=== PATIENT | female | born 1965 | race Caucasian/White ===

== ENCOUNTER 2018-12-27 15:36 | Emergency (ER) | payer MEDICAID, SELFPAY ==
[2018-12-27 15:36] VITALS: BP 120/78; PULSE 97; RESP 16; TEMP 37.1; O2SAT 99; BMI 21.0
--- NOTE | 2018-12-27 15:58 | EKG12_ITS ---
Test Reason : FLU LIKE SYMPTOMS Blood Pressure : / mmHG Vent. Rate : 080 BPM Atrial Rate : 080 BPM P-R Int : 146 ms QRS Dur : 086 ms QT Int : 370 ms P-R-T Axes : 077 073 072 degrees QTc Int : 426 ms Normal sinus rhythm Normal ECG Confirmed by JORJE KING, LEONIDES ([id number]), photographic editor MIKE BAJWA ([id number]) on 12/31/2018 1:32:12 PM Referred By: GRAY Confirmed By:LEONIDES RECINOS MD
--- NOTE | 2018-12-27 16:07 | ED.DCSUM_ITS ---
- ER Visit Summary Date of Service: 12/27/18 Chief Complaint: Cough History of Present Illness: The patient is a 53 F patient with cough x several weeks. Patient states that she went to urgent care 1.5 weeks ago. She was given Mucinex, prednisone, and an inhaler. She states she did not improve. Yesterday she was out in the cold and she feels her symptoms worsened. She has had shortness of breath, dry cough. She denies fever. She states she has chest pain with coughing and also constant chest pressure which has been ongoing for several days. Denies other complaints. Physical Examination: Vitals are stable. Patient is afebrile. Alert no acute distress. Pulse ox 99% on room air. HEENT exam is unremarkable. Neck is supple. Lungs are mild expiratory wheezing bilaterally. Heart is regular rate and rhythm. Abdomen is soft nontender nondistended. Extremities are unremarkable. Skin is warm and dry. No focal neurologic deficit. Remainder of exam is unremarkable. Emergency Department Course and Treatment: EKG is sinus rate of 80 with no acute ischemic changes. Chest x-ray shows no acute process. CBC, chemistries unremarkable. Troponin is negative. D-dimer negative. Patient was given albuterol, Atrovent aerosols. Patient eloped from the ED prior to completion of her evaluation. Disposition: Elopement Impression: URI, chest pain, elopement This note was generated with [employer] dictation software. It may contain incorrect words, spelling, and punctuation that were not noted in review of the chart prior to signing ED Disposition - Plan for ED Patient: Referrals: Ellis Crandall MD [Primary Care Provider] -
[2018-12-27 16:17] VITALS: PULSE 78; RESP 17
[2018-12-27] MEDS: Ipratropium/Albuterol Sulfate 3 ML AMPUL.NEB INHALATION (16:17)
--- NOTE | 2018-12-27 16:17 | RAD_ITS ---
STUDY: X-RAY CHEST REASON FOR EXAM: Female, 53 years old. Cold symptoms TECHNIQUE: Single AP portable view of the chest. COMPARISON: Prior study of 08/23/2016 FINDINGS: ekg monitor leads are present. The lungs are clear and expanded. There is no demonstrated pleural abnormality. Normal size heart. Normal mediastinum and kirtsen. Normal visualized pulmonary arteries. Normal visualized aortic arch and descending thoracic aorta. Normal visualized thoracic spine. Normal visualized ribs, clavicles, and shoulders. There is no demonstrated abnormality of the visualized soft tissue structures of the upper abdomen. RAD/Chest 1 View (Portable) IMPRESSION: Normal x-ray examination of the chest. Electronically Signed: Luis Castillo MD at 17:41 EST , Service support ,
[2018-12-27 16:29] LABS: Absolute Lymphocyte Count 2.32 X10^3/ul (0.83-4.51); Absolute Neutrophil Count 5.7 X10^3/uL (2.0-7.7); Basophil# 0.04 X10^3/uL; Basophil% 0.4 % (0-1); Eosinophil# 0.14 X10^3/uL; Eosinophils% 1.5 % (0-5); Hematocrit 42.8 % (37-47); Hemoglobin 14.5 g/dl (12.0-15.0); Lymphocyte # 2.32 X10^3/ul (4.0); Lymphocyte % 25.6 % (19-41); Mean Corp Hgb Conc 33.9 g/gl (32-36); Mean Corpuscular Hgb 30.3 pg (27.0-32.0); Mean Corpuscular Volume 89.4 fL (81-99); Monocyte# 0.88 X10^3/uL; Monocyte% 9.7 % (0-10); Neutrophil # 5.68 X10^3/uL (2.7-7.7); Neutrophil % 62.7 % (47-70); Platelet Count 313 K/mm3 (150-450); RBC Distribution Width CV 14.3 % (11.6-14.6); RBC Distribution Width SD 46.5 fl (35.1-43.9); Red Blood Count 4.79 M/mm3 (4.2-5.4); White Blood Count 9.1 K/mm3 (4.4-11.0)
[2018-12-27 16:32] LABS: POSITIVE COUNT NO; POSITIVE DIFFERENTIAL NO; POSITIVE MORPHOLOGY NO
[2018-12-27 16:41] LABS: D-Dimer Quantitative (DVT/PE) < 0.27 FEU/ug/m (0.27-0.49)
[2018-12-27 16:53] LABS: Anion Gap 6 (5-15); BUN 12 mg/dL (7-18); BUN/Creat Ratio 16.7 RATIO (10-20); Calcium,Total 9.4 mg/dL (8.5-10.1); Chloride 105 mmol/L (98-107); Creatinine, Serum 0.72 mg/dL (0.55-1.02); EST Glomerular Filtration Rate 91 mL/min (>60); Est Glom Filt Rate - Afr Amer 110 mL/min (>60); Estimated Creatinine Clearance 72.29 ml/min; Glucose 72 mg/dL (74-106); Potassium 4.3 mmol/L (3.5-5.1); Sodium Level 137 mmol/L (136-145)
--- NOTE | 2018-12-27 17:51 | ED.RN ---
PT IS VERY UPSET BECAUSE SHE DIDN'T WANT A IV, EVERYTHING IS TAKING TOO LONG AND SHE WOULD RATHER GO HOME AND . PT STATED SHE WANTS HER IV OUT AND IS GOING TO LEAVE. PT HAS BEEN DISGRUNTLED SINCE ARRIVAL AND FEELS THAT THE URGENT CARE DIDN'T DO ENOUGH WHEN SHE WENT THERE A WEEK AGO.
--- NOTE | 2018-12-27 17:54 | ED.RN ---
PT LEFT PRIOR TO PHYSICIAN GOING IN TO TALK TO HER AND ALSO PRIOR TO SIGNING AMA PAPERS. RN TOOK IV OUT PRIOR TO HER LEAVING.
== END 2018-12-27 18:17 | disposition left against medical advice (07) ==
LOC: ED 16:34
PROVIDERS: Emergency Provider Emergency Medicine; Family Provider Family Medicine; PCP Family Medicine
DX: J06.9 Acute upper respiratory infection, unspecified (principal); R07.9 Chest pain, unspecified; Z72.0 Tobacco use
CPT/HCPCS: 71045; 80048; 84484; 85025; 85379; 93005; 94640; 99285; J7030

== ENCOUNTER 2019-02-18 20:27 | Emergency (ER) | payer MEDICAID, SELFPAY ==
[2019-02-18 20:28] VITALS: BP 148/96; PULSE 86; RESP 16; TEMP 37; O2SAT 100; BMI 21.9
[2019-02-18 20:50] LABS: Bacteria 0 SEEN /hpf (None Seen); Mucous, Urine 0 SEEN /hpf (<or=2+); Red Blood Cells-Urine 0 SEEN /hpf (0-5); Squamous Epithelial Cells - UA 0 SEEN /hpf (5-10); White Blood Cells 0 SEEN /hpf (0-5)
[2019-02-18 20:57] LABS: Absolute Lymphocyte Count 3.09 X10^3/ul (0.83-4.51); Absolute Neutrophil Count 3.6 X10^3/uL (2.0-7.7); Basophil# 0.06 X10^3/uL; Basophil% 0.8 % (0-1); Eosinophil# 0.24 X10^3/uL; Eosinophils% 3.2 % (0-5); Hematocrit 41.6 % (37-47); Hemoglobin 13.9 g/dl (12.0-15.0); Lymphocyte # 3.09 X10^3/ul (4.0); Lymphocyte % 40.8 % (19-41); Mean Corp Hgb Conc 33.4 g/gl (32-36); Mean Corpuscular Volume 89.7 fL (81-99); Mean Platelet Vol. 10.4 fl (6.2-12.0); Monocyte# 0.54 X10^3/uL; Monocyte% 7.1 % (0-10); Neutrophil # 3.63 X10^3/uL (2.7-7.7); POSITIVE COUNT NO; POSITIVE DIFFERENTIAL NO; POSITIVE MORPHOLOGY NO; Platelet Count 262 K/mm3 (150-450); RBC Distribution Width CV 14.1 % (11.6-14.6); RBC Distribution Width SD 45.8 fl (35.1-43.9); Red Blood Count 4.64 M/mm3 (4.2-5.4); White Blood Count 7.6 K/mm3 (4.4-11.0)
[2019-02-18 20:59] LABS: Color, Urine Yellow (Yellow); Glucose, Dipstick Normal (Normal); Ketone-Dipstick Negative (Negative); Leukocyte Esterase-Dipstick Negative /ul (Negative); Nitrite-Dipstick Negative (Negative); Occult Blood-Urine 10 /ul (Negative); Protein-Dipstick Negative (Negative); Specific Gravity, Urine 1.005 (1.002-1.030); Urine Bilirubin Dipstick Negative (Negative); Urine Clarity Clear (Clear); Urine Urobilinogen Normal (Normal)
[2019-02-18 21:03] LABS: Anion Gap 9 (5-15); BUN 10 mg/dL (7-18); BUN/Creat Ratio 12.3 RATIO (10-20); Calcium,Total 9.4 mg/dL (8.5-10.1); Chloride 104 mmol/L (98-107); Creatinine, Serum 0.81 mg/dL (0.55-1.02); EST Glomerular Filtration Rate 79 mL/min (>60); Est Glom Filt Rate - Afr Amer 95 mL/min (>60); Estimated Creatinine Clearance 58.36 ml/min; Glucose 76 mg/dL (74-106); Potassium 4.2 mmol/L (3.5-5.1); Sodium Level 139 mmol/L (136-145)
[2019-02-18 21:30] LABS: Pregnancy, Serum, hCG Quali. NEGATIVE Negative (0-9 Nonpreg)
[2019-02-18 22:29] LABS: AST(SGOT) 16 U/L (15-37); Alanine Aminotransfer ALT/SGPT 18 U/L (13-56); Alkaline Phosphatase 63 U/L (45-117); Bilirubin, Direct 0.08 mg/dL (0.00-0.30); Globulin 3.4 g/dL (2.2-4.2); Lipase 124 U/L (73-393); Protein, Total 7.4 g/dL (6.4-8.2)
--- NOTE | 2019-02-18 23:06 | ED.DCSUM_ITS ---
- ER Visit Summary Date of Service: 02/18/19 Chief Complaint: Abdominal pain History of Present Illness: The patient is a 53 F who presents with abdominal pain that has been getting worse for the past couple weeks. Patient states the pain is over the epigastric area. Patient describes the pain as cramping. Patient was recently prescribed Bentyl however she states this made her pain and cramping worse. Patient states her primary care physician told her to stop taking that. Patient is on omeprazole. Patient admits to nausea but denies any vomiting. Patient states her pain is worse after eating. Patient states she has been having some mucousy stools but denies any watery diarrhea. Patient denies any melena or hematochezia. She denies any urinary complaints. Physical Examination: Vital signs are stable. Patient is afebrile. Patient is in no acute distress. Oral mucosa is pink and moist. Neck is supple. Trachea is midline. There is no JVD noted. Heart was regular rate and rhythm. Lungs are clear and equal bilateral. Abdomen is soft. Bowel sounds are normal. There is epigastric tenderness. There is no rebound or guarding noted. Skin is warm dry. Cranial nerves II through XII are intact. There are no focal motor or sensory deficits noted. The remaining physical exam is within normal limits. Test Results: CBC, comprehensive metabolic profile, and lipase were obtained and were normal. Serum hCG was negative. Urinalysis was obtained and does not show any evidence of urinary tract infection. Emergency Department Course and Treatment: Patient felt better on reevaluation. Patient was given a prescription for Carafate to take in addition to the omeprazole. Patient was instructed to follow-up with her primary care physician and surgeon as scheduled. Patient understood and was agreeable with the plan. All questions were answered. Disposition: Discharge home Impression: Epigastric abdominal pain This note was generated with [employer] dictation software. It may contain incorrect words, spelling, and punctuation that were not noted in review of the chart prior to signing ED Disposition - Plan for ED Patient: Disposition: Home or Assisted Living Diagnosis: Epigastric abdominal pain Instructions: ED Abdominal Pain Unkn Cause Prescriptions: Sucralfate [Carafate] 1 gm PO 4X/DAY #20 tab Referrals: Ellis Crandall MD [Primary Care Provider] - 5-7 Days
[2019-02-18 23:16] VITALS: BP 136/78; PULSE 89; RESP 16; O2SAT 100
== END 2019-02-18 23:17 | disposition home or self-care (01) ==
PROVIDERS: Emergency Provider Emergency Medicine; Family Provider Family Medicine; PCP Family Medicine
DX: R10.13 Epigastric pain (principal); M54.9 Dorsalgia, unspecified; R51 Headache; R11.0 Nausea; F17.210 Nicotine dependence, cigarettes, uncomplicated; F60.3 Borderline personality disorder
CPT/HCPCS: 80048; 80076; 81001; 83690; 84703; 85025; 99283; A4216

== ENCOUNTER 2019-03-09 11:06 | Day surgery (SDC) | payer MEDICAID, SELFPAY ==
--- NOTE | 2019-03-08 12:27 | HP.PCM_ITS ---
History and Physical Date of Admission: 03/09/19 Erica Pedroza is a 53 year old female who is a consultation requested byNixon Delcid PA, for an opinion regarding abdominal pain and altered bowel habits. My final recommendations will be communicated back to the requesting providern by way of shared Medical record. The patient has not been seen previously. The patient denies a family history of colon cancer.. ? The patient was seen by Farhana on 02/10/19, leading to this consultation. That note has been reviewed and part as follows: Abdominal Pain: Patient indicated that she has been having stomach issues?and?has noticed mucus in the stool.?? Blood work was ordered, but not done. ? ? The patient was seen in 12/16/18 with diarrhea. That note has been reviewed. Stool studies were ordered, but not done. She tells me that was just the flu. ?? Subjective The patient presents today stating every time I eat something my stomach will hurt. Even with coffee, but water won't hurt. It starts about an hour after eating. She rubs her upper abdomen. ? Taking omeprazole at least once a day, sometimes twice. ? She tells me since the flu it will seem like I have to go and I'll have a lot of gas and mucus. Stool is soft. ? She tells me that she can't tolerate any milk/dairy products or eggs. ? The patient tells me that, as a child, her parents would give her and her siblings laxatives every Saturday. As an adult, her bowels moved about once a month before the flu. States back then, before I'd go to the bathroom I would get nauseated and feel like I'm going to pass out. Nothing like that now. She denies seeing any blood or black stool. ? ?? PAST?MEDICAL?HISTORY ? Anxiety 05/04/2014 ? Carpal tunnel syndrome, left 01/06/2013 ? Carpal tunnel syndrome, right 01/06/2013 ? Depression 05/04/2014 ? Mood disorder (HCC) 05/04/2014 ? NEGATIVE MEDICAL HISTORY ? ? Panic attacks 03/24/2014 ? ? PAST?SURGICAL?HISTORY ? DELIVERY ONLY ? 1984 ? , low transverse ? DELIVERY ONLY ? 1986 ? , low transverse ? DELIVERY ONLY ? 1987 ? , low transverse ? FECAL OCCULT BLOOD TEST ? 04/15/2017 ? negative ? ? FAMILY?HISTORY ? Diabetes Mother ? ? COPD Mother ? ? COPD Father ? ? Heart Father ? ? Hypertension Father ? ? Coronary Artery Disease Father ? ? 50's ? Diabetes Sister ? ? COPD Sister ? ? Hypertension Sister ? ? CURRENT?MEDICATIONS ?fluticasone (FLONASE) 50 mcg/actuation nasal spray Use 2 Sprays in each nostril once daily. Rinse mouth after use. Disp: 1 Bottle Rfl: 1 Omeprazole 40 mg capsule Take 1 capsule by mouth twice daily. Disp: 60 capsule Rfl: 5 ?? ? SOCIAL HISTORY: Patient is . She smokes 1/2 ppd and reports her alcohol or cannabis use as never. ?? Review of Systems Constitutional: Positive for appetite change (due to pain associated with eating) and chills. HENT: Positive for dental problem. Negative for mouth sores and trouble swallowi ng. Eyes: Negative for visual disturbance. Respiratory: Negative for cough, shortness of breath and wheezing. Cardiovascular: Negative for chest pain, palpitations and leg swelling. Gastrointestinal: Positive for abdominal distention, abdominal pain (epigastric region), diarrhea and nausea. Genitourinary: Negative for difficulty urinating, vaginal bleeding and vaginal discharge. Musculoskeletal: Positive for arthralgias (hand joint pain) and back pain. Neurological: Negative for tremors, seizures, syncope and headaches. Hematological: Negative for adenopathy. Does not bruise/bleed easily. Psychiatric/Behavioral: The patient is nervous/anxious. Also depression. Question of borderline personality disorder. Objective Blood pressure 138/73, pulse 90, height 152.4 cm (5'), weight 50.8 kg (112 lb). ?Physical Exam Constitutional: She is oriented to person, place, and time. She appears well- developed. No distress. HENT: Head: Normocephalic and atraumatic. Mouth/Throat: Oropharynx is clear and moist. Eyes: Pupils are equal, round, and reactive to light. Conjunctivae and EOM are normal. No scleral icterus. Neck: Neck supple. No tracheal deviation present. No thyromegaly present. Cardiovascular: Normal rate, regular rhythm and normal heart sounds. Pulmonary/Chest: Effort normal and breath sounds normal. No respiratory distress. She has no wheezes. Abdominal: Soft. Bowel sounds are normal. She exhibits no distension and no mass. There is tenderness (slight TTP epigastric region). There is no rebound and no guarding. Musculoskeletal: She exhibits no edema or deformity. Lymphadenopathy: She has no cervical adenopathy. Neurological: She is alert and oriented to person, place, and time. No cranial nerve deficit or sensory deficit. Skin: Skin is warm and dry. No rash noted. She is not diaphoretic. No erythema. Psychiatric: She has a normal mood and affect. Her behavior is normal. Judgment and thought content normal. ? ? ? Assessment and Plan Epigastric pain 2)altered bowel habits ? She will have the blood work done tomorrow. She will continue omeprazole. Prescribed dicyclomine. ? The patient will be scheduled for an upper endoscopy and colonoscopy. Preparation for the procedures, using Miralax and Dulcolax as the laxative, have been explained in detail. The risks, benefits, anticipated outcomes and possible complications were mentioned. I explained the procedure in understandable terms and the patient was given printed material concerning the planned procedure. The patient had the opportunity to ask questions concerning the planned procedure. The patient freely consents to the planned procedure. ? The patient is encouraged to call with any questions or concerns, or should there be any change in health status between now and the scheduled procedure. ? I have personally interviewed and examined this patient. I have read the information that the MA documented in this encounter. I spent 30 minutes in the visit, with more than 50% of the total [id number] time of the visit in counseling / coordination of care. ? Matilde Pang RN FISHING [employer] WINDING MACHINE OPERATOR.[employer] ? ?
--- NOTE | 2019-03-09 | COLBX_PTH ---
PATIENT: SJ MOHAN LOC: EN U#:[id number] AGE/SX: 53/F ROOM: RE03/09/[address]: Dr. Citlali Archuleta MD : 1965 BED: DIS: 03/09/2019 SPEC #: [id number] RECD: 03/09/19 15:39 STATUS: CARSON RE #: [id number] [place]: 03/09/19 00:[address]: Citlali Archuleta DEPT: SURGICAL PATHOLOGY RECD BY: Miles Cleary ENTERED: 03/10/19 14:00 SP TYPE: COLON BX OTHR DR: Dr. Ellis Crandall MD Tissues: A - Duodenum, NOS B - Gastric mucous membrane C - Gastric mucous membrane D - COLON BIOPSY Procedures: Special Stain Group II Surgery Specimen Level IV Alcian Blue/PAS (control) HEADER OPERATION: Colonoscopy, EGD ([facility]) PRE-OP DIAGNOSIS: Abdominal pain; altered bowel habits TISSUE SUBMITTED: A - Second portion of duodenum biopsy, B - Antral biopsy for H. pylori and pathology, C - GE junction biopsy, D - Random colon biopsies MICROSCOPIC DIAGNOSIS A. Second portion of duodenum, biopsy: No pathologic diagnosis. B. Gastric antrum, biopsy: Benign fragments of superficial gastric mucosa. No evidence of inflammation. See comment. C. Gastroesophageal junction, biopsy: Focal changes of reflux. Mild chronic inflammation. No evidence of intestinal metaplasia. No evidence of dysplasia. See comment. D. Colon, random biopsy: Mild melanosis coli. AM:isaias 03/11/19 COMMENT B. The results of immunohistochemistry for Helicobacter pylori will be reported separately ([id number]). C. Alcian blue/PAS stain with matched control supports the above diagnosis. MICROSCOPIC DESCRIPTION Slides are reviewed. GROSS DESCRIPTION A - Received in fixative is one container labeled with the patient's name and designated second portion of duodenum. The specimen consists of one irregular fragment of light rm soft tissue that measures 0.3 x 0.3 x 0.1 cm. The specimen is totally submitted in one cassette. B - Received in fixative is one container labeled with the patient's name and designated antral biopsy. The specimen consists of multiple irregular fragments of light rm soft tissue that in aggregate measure 0.6 x 0.3 x 0.1 cm. The specimen is totally submitted in one cassette. C - Received in fixative is one container labeled with the patient's name and designated GE junction biopsy. The specimen consists of two irregular fragments of light rm soft tissue that in aggregate measure 0.6 x 0.3 x 0.1 cm. The specimen is totally submitted in one cassette. D - Received in fixative is one container labeled with the patient's name and designated random colon biopsy. The specimen consists of multiple irregular fragments of light rm soft tissue that in aggregate measure 2 x 0.3 x 0.1 cm. The specimen is totally submitted in one cassette. / SJ:rg 03/10/19 TC:5 CPT: 27605 x4, 68041
[2019-03-09 11:21] VITALS: BP 146/90; PULSE 71; RESP 16; TEMP 37; O2SAT 100; BMI 20.7
--- NOTE | 2019-03-09 12:00 | IMM_PTH ---
PATIENT: SJ MOHAN LOC: [facility] U#:[id number] AGE/SX: 53/F ROOM: RE03/09/[address]: Dr. Citlali Archuleta MD : 1965 BED: DIS: 03/09/2019 SPEC #: [id number] RECD: 03/10/19 15:07 STATUS: CARSON REQ #: [id number] [place]: 03/09/19 12:[address]: Citlali Archuleta DEPT: IMMUNOHISTOCHEMISTRY RECD BY: Joanna Alvarez ENTERED: 03/10/19 15:08 SP TYPE: IMMUNO OTHR DR: Dr. Ellis Crandall MD Tissues: B - Stomach, NOS Procedures: H Pylori (initial) PHYSICIAN & INSTITUTION [place] [id number] SPECIMEN INFORMATION: Tissue Source: B - Antral biopsy Clinical Info: Abdominal pain, altered bowel habits Specimen Number: [id number] CPT code: 46880 METHODOLOGY: Deparaffinized sections of prefer/formalin-fixed tissue or PAP/DQ stained slides are incubated with monoclonal/polyclonal antibodies/oligonucleotide probes. Localization is made via biotin free immunoperoxidase method. Appropriate controls are performed and reacted as expected. Results on target cell population are indicated in the following table: RESULTS: ANTIBODY / CLONE RESULT Block B H Pylori (polyclonal) negative These tests were developed and their performance characteristics determined by [facility]. They may not have been cleared or approved by the U.S. Food and Drug Administration. The FDA has determined that such clearance or approval is not necessary. INTERPRETATION: B. Antral biopsy: Negative for Helicobacter pylori organisms. AM:isaias 03/11/19
--- NOTE | 2019-03-09 13:14 | OP.ENDO_ITS ---
03/09/2019 Ellis Crandall MD Re : Upper GI endoscopy procedure for Erica Pedroza Dear Dr. Crandall This procedure was performed on Saturday, March 09, 2019. My impressions and recommendations are as follows: Impressions : - No specimens collected. Recommendations : - Discharge patient to home (ambulatory). - Resume previous diet. - Continue present medications. - Return to nurse practitioner in 1-2 week. My findings are described in the full procedure note, which is enclosed. If I can be of further assistance, please feel free to contact me at Doctor phone number(s): , Work: . Sincerely, MD Citlali Fuchs MD 03/09/2019 1:14:15 PM This report has been signed electronically.
--- NOTE | 2019-03-09 13:17 | OP.ENDO_ITS ---
03/09/2019 Ellis Crandall MD Re : Colonoscopy procedure for Erica Pedroza Dear Dr. Crandall This procedure was performed on Saturday, March 09, 2019. My impressions and recommendations are as follows: Impressions : - Non-bleeding internal hemorrhoids. - Biopsies were taken with a cold forceps from the entire colon for evaluation of microscopic colitis. Recommendations : - Discharge patient to home (ambulatory). - Resume previous diet. - Continue present medications. - Return to nurse practitioner in 1 - 2week. - Repeat colonoscopy in 10 years for screening purposes. My findings are described in the full procedure note, which is enclosed. If I can be of further assistance, please feel free to contact me at Doctor phone number(s): , Work: . Sincerely, MD Citlali Fuchs MD 03/09/2019 1:16:56 PM This report has been signed electronically.
[2019-03-09 13:19] VITALS: BP 144/81; BP 146/90; PULSE 67; RESP 16; TEMP 35.8; O2SAT 100
[2019-03-09 13:24] VITALS: BP 146/90; BP 147/80; PULSE 65; RESP 16; O2SAT 100
[2019-03-09 13:29] VITALS: BP 144/89; BP 146/90; PULSE 68; RESP 16; O2SAT 100
[2019-03-09 13:34] VITALS: BP 135/84; BP 146/90; PULSE 63; RESP 16; TEMP 36.1; O2SAT 100
[2019-03-09 13:52] VITALS: BP 146/90
== END 2019-03-09 14:01 | disposition home or self-care (01) ==
LOC: EN 11:06 → AC 11:11
PROVIDERS: Family Provider Family Medicine; PCP Family Medicine; Referring Provider Family Medicine; Visit Provider Surgery
PROC: 0DJD8ZZ Inspection of Lower Intestinal Tract, Via Natural or Artificial Opening Endoscopic (ICD-10-PCS; CPT 45378; principal; 2019-03-09 11:55)
DX: K64.8 Other hemorrhoids (principal); R10.84 Generalized abdominal pain; R19.4 Change in bowel habit; K63.89 Other specified diseases of intestine; F17.210 Nicotine dependence, cigarettes, uncomplicated; I10 Essential (primary) hypertension
CPT/HCPCS: 43239; 45380; 88305; 88313; 88342; J7120; J2405

== ENCOUNTER 2019-05-05 07:59 | Emergency (ER) | payer SELFPAY ==
[2019-05-05 08:00] VITALS: BP 189/110; PULSE 70; RESP 18; TEMP 36.6; O2SAT 100; BMI 22.0
[2019-05-05 08:03] VITALS: TEMP 36.6
--- NOTE | 2019-05-05 08:35 | ED.DCSUM_ITS ---
- ER Visit Summary Date of Service: 05/05/19 Chief Complaint: Dental pain and facial swelling History of Present Illness: The patient is a 53 F who presents for 2 days of right-sided dental and facial pain with facial swelling. Patient states she began noticing facial pain and swelling in the right mandibular region that is moved up to the cheek. She began having severe tooth pain in the maxillary molars this morning. Pain is throbbing. Patient has a history of poor dentition. She denies any fever, chills, sore throat, rhinorrhea, cough, shortness of breath or any other complaints. Patient has not taken anything for the pain. Physical Examination: Vital signs: afebrile, hemodynamically stable, no hypoxia on room air General: well nourished, well developed, in no distress Skin: warm, dry, no rash, no pallor HEENT: normocephalic and atraumatic; PERRL, EOMI, moist mucous membranes, diffuse poor dentition, tenderness to the right maxilary premolar/molar with no focal abscess noted, no gingival erythema or swelling; multiple teeth missing, mild facial swelling along the right jawline and cheek, neck is supple, full active range of motion, mildly tender anterior cervical lymphadenopathy, no submandibular or sublingual swelling Cardiovascular: regular rate and rhythm Respiratory: No increased work of breathing MSK: Moves all extremities, no deformities, normal strength Neuro: Awake and alert, oriented ?4. No facial droop, sensation and motor function intact and symmetric Test Results: Medications Given Discontinued Medications Naproxen (Naprosyn) 500 mg PO X1 ONE Stop: 05/05/19 08:29 Last Admin: 05/05/19 08:52 Dose: 500 mg Penicillin V Potassium (Pen-Vee K , V-Cillin K) 500 mg PO X1 ONE Stop: 05/05/19 08:30 Last Admin: 05/05/19 08:52 Dose: 500 mg Emergency Department Course and Treatment: Patient has no area of fluctuance physical exam that would be concerning for an abscess that would be amenable to drainage. Patient was given naproxen for pain and started on penicillin for concern for dental infection resulting in facial swelling. Patient was given a list of dental clinics and is to follow-up as soon as possible. Discharged home with prescription for naproxen and penicillin. Treatment Plan: [] Disposition: [] Impression: Odontalgia, dental infection with facial swelling This note was generated with [employer] dictation software. It may contain incorrect words, spelling, and punctuation that were not noted in review of the chart prior to signing ED Disposition - Plan for ED Patient: Disposition: Home or Assisted Living Instructions: ED Dental Abscess Facial Cellulitis Prescriptions: RX: Naproxen [Naprosyn] 500 mg PO BID PRN #20 tab RX: Penicillin V Potassium 500 mg PO 4X/DAY #40 tab Referrals: Ellis Crandall MD [Primary Care Provider] - 3-5 Days if not improving Additional Instructions: Please follow-up with a dentist as soon as possible. You have been given a list of dental clinics that you may contact for an appointment. Take the antibiotics as prescribed for the full course even if you feel better before they are completed. Use naproxen as needed for pain. If you have any worsening of your condition or any new concerning symptoms, please return immediately to the emergency department for another evaluation.
[2019-05-05] MEDS: Naproxen 500 MG Tablet PO (08:52)
[2019-05-05] MEDS: Penicillin Vk 250 MG Tablet 500 MG PO (08:52)
== END 2019-05-05 08:57 | disposition home or self-care (01) ==
PROVIDERS: Emergency Provider Emergency Medicine; Family Provider Family Medicine; PCP Family Medicine
DX: K04.7 Periapical abscess without sinus (principal); K08.89 Other specified disorders of teeth and supporting structures; Z72.0 Tobacco use; K00.0 Anodontia
CPT/HCPCS: 99283

== ENCOUNTER 2019-06-20 17:42 | Emergency (ER) | payer SELFPAY ==
[2019-06-20 17:43] VITALS: BP 146/81; PULSE 96; RESP 15; TEMP 36.7; O2SAT 96; BMI 22.2
--- NOTE | 2019-06-20 18:19 | ED.DCSUM_ITS ---
- ER Visit Summary Date of Service: 06/20/19 Chief Complaint: Back pain History of Present Illness: The patient is a 53 F who presents with back pain that has been getting worse over the past 4 days. Patient denies any specific trauma or injury. Patient states the pain is over the low back and radiates to her right buttock and right posterior thigh. Patient states the pain is worse with sitting. Patient denies any paresthesias or weakness. Patient denies any bowel or bladder changes. Patient denies any saddle anesthesia. Physical Examination: Vital signs are stable. Patient is afebrile. Patient is in no acute distress. Musculoskeletal exam reveals tenderness over the right lumbar paraspinal muscles. There is no bony crepitance or step-off. There is also tenderness over the right sciatic notch. Straight leg raises were negative bilaterally. Strength is 5/5 bilaterally in the lower extremities. Deep tendon reflexes were 2/4 bilaterally. There are no sensory deficits noted. Emergency Department Course and Treatment: Patient was given injections of Toradol and Norflex here. Patient was given prescriptions for meloxicam and Flexeril. Patient was instructed to use ice to the area. Patient was instructed to follow-up with her primary care physician in 5 to 7 days. Patient understood and was agreeable with the plan. All questions were answered. Disposition: Discharge home Impression: Sciatica This note was generated with [employer] dictation software. It may contain incorrect words, spelling, and punctuation that were not noted in review of the chart prior to signing ED Disposition - Plan for ED Patient: Disposition: Home or Assisted Living Diagnosis: Sciatica of right side Instructions: BACK PAIN w/ SCIATICA Prescriptions: cycloBENZAPRine HCl [Flexeril] 10 mg PO QHS PRN PRN #10 tab PRN Reason: Muscle Spasm Prescription Printed Meloxicam 15 mg PO DAILY PRN PRN #20 tab PRN Reason: Pain Prescription Printed Referrals: Ellis Crandall MD [Primary Care Provider] - 5-7 Days
--- NOTE | 2019-06-20 18:38 | ED.RN ---
PT REFUSES MEDICATION INJECTIONS, STATES I JUST WANT SOME PRESCRIPTIONS TO FILL. DISCHARGE PAPERWORK GIVEN
== END 2019-06-20 18:39 | disposition home or self-care (01) ==
PROVIDERS: Emergency Provider Emergency Medicine; Family Provider Family Medicine; PCP Family Medicine
DX: M54.30 Sciatica, unspecified side (principal); F17.210 Nicotine dependence, cigarettes, uncomplicated; K21.9 Gastro-esophageal reflux disease without esophagitis
CPT/HCPCS: 96372; 99282

== ENCOUNTER 2019-08-17 23:12 | Emergency (ER) | payer SELFPAY ==
[2019-08-17 23:13] VITALS: BP 165/93; PULSE 79; RESP 18; TEMP 36.6; O2SAT 100; BMI 22.4
--- NOTE | 2019-08-17 23:37 | EKG12_ITS ---
Test Reason : Blood Pressure : / mmHG Vent. Rate : 073 BPM Atrial Rate : 073 BPM P-R Int : 174 ms QRS Dur : 100 ms QT Int : 418 ms P-R-T Axes : 068 073 073 degrees QTc Int : 460 ms Normal sinus rhythm Normal ECG Confirmed by GLEN KING, JOE ([id number]), proposal editor MIKE BAJWA ([id number]) on 08/19/2019 3:13:22 PM Referred By: JIN Confirmed By:JOE CARROLL MD
--- NOTE | 2019-08-18 00:43 | RAD_ITS ---
HISTORY: CPChest PainRAD - Chest EXAM: XR Chest 2 Views COMPARISON: December 27, 2018 FINDINGS: LINES/DEVICES: None. LUNGS: There are chronic interstitial changes. No pneumothorax. No consolidation or effusion. MEDIASTINUM AND CARDIOVASCULAR STRUCTURES: Cardiac silhouette not enlarged. Central airways and mediastinal contour are unremarkable. Athersclerotic plaque within the aortic arch. BONES AND SOFT TISSUES: Thoracic spondylosis. RAD/Chest PA and Lateral IMPRESSION: Chronic interestitial changes. No radiographic evidence of acute cardiopulmonary disease. at 0058 Reported and signed by: Celso Elaine MD Electronically Signed: Celso Elaine MD at 0:57 EDT Tel , Service support ,
--- NOTE | 2019-08-18 00:44 | ED.VIS.GEN ---
History of Present Illness Chief Complaint: Chest Other Narrative: Patient is a 54-year-old female who presents with chest pain. She has had about 2 to 3 days of dull left-sided chest pain which became sharp today. It is worse with inspiration palpation or certain movements. She also complains of upper respiratory symptoms with sinus congestion, rhinorrhea, nonproductive cough. She is not short of breath. She denies any recent travel or surgery, pain or swelling in the legs, history of DVT or pulmonary embolism, any known coagulopathies. She is a smoker. She does have a history of hypertension but does not take the medication as prescribed. She denies any history of heart disease. Past Medical History - Allergies and Home Meds Allergies/Adverse Reactions: Allergies morphine Allergy (Verified 08/17/19 23:15) Hives citalopram [From Celexa] Adverse Reaction (Verified 08/17/19 23:15) Other venlafaxine [From Effexor] Adverse Reaction (Verified 08/17/19 23:15) Other Primary Care Physician: Ellis Crandall MD [Primary Care Provider] - Past Medical History: - - Hypertension, noncompliant with medication Surgical History: noncontributory Smoking Status: Current every day smoker Review of Systems All systems negative except as indicated General: Denies: Fever ENT: Reports: - - Congestion, rhinorrhea Cardiovascular: Reports: Chest pain Respiratory: Reports: Cough. Denies: Dyspnea Gastrointestinal: Denies: Abdominal pain, Nausea, Vomiting, Diarrhea Skin: Denies: Rash Neurological: Denies: Headache Physical Exam Vital Signs/Narrative: Vital Signs Temp Pulse Resp BP Pulse Ox 08/17/19 23:13 97.9 F 79 18 165/93 H 100 Inital Vital Signs reviewed: Yes General: Well nourished Head: Normocephalic Eyes: EOMI ENT: Moist mucous membranes Neck: Supple Cardiovascular: Regular rate, Regular rhythm Respiratory: No distress, CTA bilaterally, Chest tenderness - Lower chest wall tenderness no rash Abdomen: Soft Skin: Normal color Neurological: Alert Psychological: Normal affect Diagnostic/Tx/Re-eval - Medical Decision Making EKG shows normal sinus rhythm at a rate of 73 with no acute ischemic changes. Two-view chest x-ray on my review shows no acute process no pneumothorax or focal infiltrate. Her presentation is most consistent with chest wall strain related to her cough. It is easily reproducible. She was given naproxen here as well as a prescription for the same and was advised on supportive care. She understands to return for new or worsening symptoms and was discharged home. ED Disposition - Plan for ED Patient: Disposition: Home or Assisted Living Diagnosis: Chest wall pain Instructions: Chest Wall Strain Prescriptions: Naproxen [Naprosyn] 500 mg PO BID #20 tab Prescription Printed Referrals: Ellis Crandall MD [Primary Care Provider] -
[2019-08-18] MEDS: Naproxen 500 MG Tablet PO (01:00)
[2019-08-18 01:03] VITALS: BP 153/98; PULSE 65; RESP 18; O2SAT 98
== END 2019-08-18 01:04 | disposition home or self-care (01) ==
PROVIDERS: Emergency Provider Emergency Medicine; Family Provider Family Medicine; PCP Family Medicine
DX: R07.89 Other chest pain (principal); R05 Cough; I10 Essential (primary) hypertension; F17.200 Nicotine dependence, unspecified, uncomplicated; Z91.14 Patient's other noncompliance with medication regimen; Z88.5 Allergy status to narcotic agent
CPT/HCPCS: 71046; 93005; 99283

== ENCOUNTER 2020-01-10 14:49 | Emergency (ER) | payer SELFPAY ==
[2020-01-10 14:49] VITALS: BP 169/91; PULSE 87; RESP 16; TEMP 36.6; O2SAT 99; BMI 22.4
--- NOTE | 2020-01-10 15:05 | ED.VIS.GEN ---
History of Present Illness Chief Complaint: Sore Throat Detail of Chief Complaint: Masslike sensation in throat Informant: Patient Onset: Weeks - 1 week Context: Gradual Onset Current Severity: Mild Maximum Severity: Moderate Narrative: Patient presents with sensation that there is something growing in her throat. She states she had difficulty swallowing at times. She feels a pressure sensation on the right anterior neck. Patient states she put her finger down her throat earlier today and felt a tonguelike projection from the back of her throat. My suspicion is that she was able to palpate her epiglottis. She does not have fever or chills. She has had mild sinus symptoms recently. She has been able to lie down flat to sleep without difficulty. She is tolerating secretions well and has a strong voice. - Past Medical History (1) Borderline personality disorder Status: Chronic (2) GERD (gastroesophageal reflux disease) Status: Chronic (3) Bipolar affective disorder Status: Chronic Past Medical History - Allergies and Home Meds Allergies/Adverse Reactions: Allergies morphine Allergy (Verified 01/10/20 14:52) Hives citalopram [From Celexa] Adverse Reaction (Verified 01/10/20 14:52) Other venlafaxine [From Effexor] Adverse Reaction (Verified 01/10/20 14:52) Other Primary Care Physician: Ellis Crandall MD [Primary Care Provider] - Prior records reviewed: Yes Surgical History: noncontributory Smoking Status: Current every day smoker Review of Systems General: Denies: Chills, Fever Eyes: Denies: Visual changes - bilaterally ENT: Reports: Sore throat, - - Sinus pressure and congestion. Denies: Bilateral ear pain Cardiovascular: Denies: Chest pain Respiratory: Denies: Dyspnea, Cough Gastrointestinal: Denies: Abdominal pain, Nausea, Vomiting, Diarrhea Genitourinary: Denies: Dysuria Musculoskeletal: Denies: Back pain Skin: Denies: Rash Neurological: Denies: Headache Allergy: Denies: Uticaria Physical Exam Vital Signs/Narrative: Vital Signs Temp Pulse Resp BP Pulse Ox 01/10/20 14:49 98 F 87 16 169/91 H 99 Inital Vital Signs reviewed: Yes General: Well nourished, Well developed Head: Normocephalic ENT: Moist mucous membranes, TM's clear, - - Mild posterior pharyngeal drainage. Uvula midline. Patient tolerating secretions well and has a strong voice. Neck: Supple, - - Mild bilateral anterior cervical lymphadenopathy. Cardiovascular: Regular rate, Regular rhythm Respiratory: No distress, CTA bilaterally Abdomen: Soft, Nontender, Normal bowel sounds Extremities: Nontender Skin: Normal color Neurological: Alert, Oriented x3 Psychological: Normal affect Diagnostic/Tx/Re-eval Impressions Soft Tissue Neck CT 01/10/20 15:30 IMPRESSION: 1. No acute findings. 2. Tonsillolithiasis, consistent with prior inflammation. 3. COPD. Electronically Signed: Ana Saleem MD at 16:59 EST Tel , Service support , 01/10/20 15:30 CT Neck [Soft Tissue Neck without Contr] [CT] Stat - Medical Decision Making Test results are discussed with the patient. Patient has no airway obstruction noted. There is no evidence of epiglottitis. She still feels that there is something, and I advised her she may have just scratched her throat when she swallowed, but this should resolve in the next couple days if that is the case. She be referred to ENT if not improving. I will also advise her on how to use Magic mouthwash to see if this helps her symptoms. ED Disposition - Plan for ED Patient: Disposition: Home or Assisted Living Diagnosis: Dysphasia Referrals: Ellis Crandall MD [Primary Care Provider] - Sincere Sousa MD [STAFF PHYSICIAN] - 1 Week if not improving Additional Instructions: Your CT scan reveals no evidence of mass or foreign body. If symptoms persist, you can follow-up with ENT for further evaluation. You can gargle and swallow Magic Mouthwash - you can make this by mixing one part Maalox and one part liquid Benadryl. You can take 2 tsp every 6 hours as needed.
--- NOTE | 2020-01-10 15:30 | CT_ITS ---
STUDY: CT SOFT TISSUE NECK WITHOUT CONTRAST REASON FOR EXAM: Female, 54 years old. Dysphagia, sore throat RADIATION DOSAGE (If Supplied By Facility): CTDIvol = ( 9.72 ) mGy, DLP = ( 293.63 ) mGycm TECHNIQUE: The patient was scanned in a multi-detector CT scanner. High resolution transaxial imaging was performed without the administration of intravenous contrast material. Sagittal and coronal images were reconstructed. Individualized dose optimization techniques were used for this CT. COMPARISON: None. FINDINGS: Normal bilateral parotid glands. Normal bilateral feed management advisor spaces. Normal bilateral parapharyngeal spaces. Normal bilateral carotid spaces. Normal bilateral submandibular glands and spaces. Normal visualized nasopharynx. Normal retropharyngeal space. Normal perivertebral space. Small calcifications in the bilateral palatine tonsils. Tonsils are otherwise unremarkable. The visualized tongue, tongue base and oropharynx are normal. The visualized cervical lymph nodes (levels I-) are within normal size limits, and maintain normal morphology. There is no demonstrated solid or cystic mass lesion. Normal epiglottis, bilateral vallecula and hypopharynx. The pre-epiglottic and paraglottic adipose spaces are normal. Normal visualized bilateral piriform sinuses, aryepiglottic folds, vocal cords, and arytenoid-cricoid articulations. Normal subglottic trachea. Normal bilateral lobes of the thyroid gland. Normal visualized paranasal sinuses. Normal visualized cervical spine. Moderate centrilobular emphysema. CT/Soft Tissue Neck without Contr IMPRESSION: 1. No acute findings. 2. Tonsillolithiasis, consistent with prior inflammation. 3. COPD. Electronically Signed: Ana Saleem MD at 16:59 EST Tel , Service support ,
== END 2020-01-10 17:22 | disposition home or self-care (01) ==
PROVIDERS: Emergency Provider Emergency Medicine; PCP Family Medicine
DX: R47.02 Dysphasia (principal); K21.9 Gastro-esophageal reflux disease without esophagitis; F17.200 Nicotine dependence, unspecified, uncomplicated; Z79.899 Other long term (current) drug therapy
CPT/HCPCS: 70490; 99282; J7040

== ENCOUNTER → 2020-09-20 10:21 | Outpatient (CLI) | payer MEDICAID, SELFPAY | PROVIDERS: PCP Family Medicine; Referring Provider Physician Assistant; Visit Provider Physician Assistant | DX: Z20.828 Contact with and (suspected) exposure to other viral communicable diseases (principal) | CPT/HCPCS: 87635; C9803; U0003 ==

== ENCOUNTER 2020-11-21 13:09 | Emergency (ER) | payer MEDICAID, SELFPAY ==
[2020-11-21 13:10] VITALS: BP 151/97; PULSE 103; RESP 17; TEMP 35.8; O2SAT 100; BMI 24.0
--- NOTE | 2020-11-21 13:29 | EKG12_ITS ---
Test Reason : CP Blood Pressure : / mmHG Vent. Rate : 091 BPM Atrial Rate : 091 BPM P-R Int : 152 ms QRS Dur : 094 ms QT Int : 368 ms P-R-T Axes : 065 063 051 degrees QTc Int : 452 ms Normal sinus rhythm Normal ECG Confirmed by GARLAND KING, ALEX ([id number]), editor school photograph FILI CASTILLO ([id number]) on 11/28/2020 9:12:29 AM Referred By: CHE Confirmed By:BARRETT HAQUE MD
--- NOTE | 2020-11-21 13:30 | ED.DCSUM_ITS ---
History of Present Illness Chief Complaint: Chest Pain Informant: Patient Onset: Days Timing: Intermittent Current Severity: Mild Maximum Severity: Moderate Narrative: Patient presents with recurring chest pain and high blood pressure. Patient states he is a history of hypertension and is supposed to be taking lisinopril, however she had low blood pressure and syncope taking it previously so now she is afraid to take it. Patient presents with at least 2 separate episodes of chest tightness. The first occurred on the evening of November 18. She states it felt like someone was squeezing her heart and she became sweaty and nauseated. She had trouble sleeping at night because she could not get comfortable. The following day she was pain-free. The evening of the pain recurred. Patient called her doctor today because her blood pressure was elevated last evening and they advised her to come to the emergency room. She denies known history of cardiac disease. - Past Medical History (1) Hypertension Status: Chronic (2) Borderline personality disorder Status: Chronic (3) GERD (gastroesophageal reflux disease) Status: Chronic (4) Bipolar affective disorder Status: Chronic Past Medical History - Allergies and Home Meds Allergies/Adverse Reactions: Allergies morphine Allergy (Verified 11/21/20 13:09) Hives citalopram [From Celexa] Adverse Reaction (Verified 11/21/20 13:09) Other venlafaxine [From Effexor] Adverse Reaction (Verified 11/21/20 13:09) Other Primary Care Physician: Ellis Crandall MD [Primary Care Provider] - Surgical History: noncontributory Smoking Status: Current every day smoker Review of Systems General: Denies: Chills, Fever Eyes: Denies: Visual changes - bilaterally ENT: Denies: Bilateral ear pain Cardiovascular: Reports: Chest pain Respiratory: Denies: Dyspnea, Cough Gastrointestinal: Denies: Abdominal pain, Nausea, Vomiting, Diarrhea Genitourinary: Denies: Dysuria Musculoskeletal: Denies: Extremity Pain Skin: Denies: Rash, Wounds Neurological: Denies: Headache Hematologic: Denies: Easy bruising, Easy bleeding Allergy: Denies: Uticaria Physical Exam Vital Signs/Narrative: Vital Signs Temp Pulse Resp BP Pulse Ox 11/21/20 13:10 96.5 F L 103 H 17 151/97 H 100 Inital Vital Signs reviewed: Yes General: Well nourished, Well developed Head: Normocephalic ENT: Moist mucous membranes Neck: Supple Cardiovascular: Regular rate, Regular rhythm Respiratory: No distress, CTA bilaterally Abdomen: Soft, Nontender Extremities: Nontender Skin: Normal color Neurological: Alert, Oriented x3 Psychological: - - Anxious Diagnostic/Tx/Re-eval Chest X-Ray - ED: 1 View, Read by ED Physician, Chronic Changes Impressions Chest X-Ray 11/21/20 13:35 IMPRESSION: Normal x-ray examination of the chest. Electronically Signed: Aure Romero, at 13:55 EST Tel , Service support , 11/21/20 13:35 Chest 1 View (Portable) [RAD] Stat Laboratory Results 11/21/20 11/21/20 13:32 13:32 WBC 7.0 RBC 4.79 Hgb 14.8 Hct 44.4 MCV 92.7 MCH 30.9 MCHC 33.3 RDW Std Deviation 46.6 H RDW Coeff of Dona 13.8 Plt Count 250 MPV 10.5 Immature Gran % (Auto) 0.300 Neut % (Auto) 56.7 Lymph % (Auto) 34.3 [place] % (Auto) 4.5 Eos % (Auto) 3.3 Baso % (Auto) 0.9 Absolute Neuts (auto) 4.0 Absolute Lymphs (auto) 2.39 Nucleated RBC % 0 Sodium 138 Potassium 3.6 Chloride 105 Carbon Dioxide 27.0 Anion Gap 6 BUN 7 Creatinine 0.70 Estim Creat Clear Calc 65.99 Est GFR (MDRD) Af Amer 113 Est GFR (MDRD) Non-Af 93 BUN/Creatinine Ratio 10.1 Glucose 90 Calcium 9.4 Troponin I < 0.015 - EKG Initial EKG Interpretation: Sinus Rhythm - Sinus at [address] change. - Medical Decision Making Patient's history is certainly concerning for cardiac etiology. She is given aspirin arrival. She is had no chest pain while in the emergency room. Blood work at this time is unremarkable. I did recommend hospitalization overnight for cycling of enzymes and stress test, however she states that she has no one to watch her grandchildren and cannot stay. She will sign out AMA. I did encourage her to return immediately if she gets any recurrent chest pain. I encouraged her to follow-up with her PCP as soon as possible to schedule an outpatient stress test. She believes she has a virtual appointment with him tomorrow. ED Disposition - Plan for ED Patient: Disposition: Home or Assisted Living Diagnosis: Chest pain Instructions: ED Chest Pain, Uncertain Cause Referrals: Ellis Crandall MD [Primary Care Provider] - As soon as possible
--- NOTE | 2020-11-21 13:35 | RAD_ITS ---
STUDY: X-RAY CHEST REASON FOR EXAM: Female, 55 years old. LEFT SIDED CHEST PAIN THAT STARTED JUAN ALBERTO, REPORTS WORSE WITH LAYING DOWN. TECHNIQUE: Single AP portable view of the chest. COMPARISON: None. FINDINGS: The lungs are clear and expanded. There is no demonstrated pleural abnormality. Normal size heart. Normal mediastinum and kirsten. Normal visualized pulmonary arteries. Normal visualized aortic arch and descending thoracic aorta. Normal visualized thoracic spine. Normal visualized ribs, clavicles, and shoulders. There is no demonstrated abnormality of the visualized soft tissue structures of the upper abdomen. RAD/Chest 1 View (Portable) IMPRESSION: Normal x-ray examination of the chest. Electronically Signed: Aure Romero, at 13:55 EST Tel , Service support ,
[2020-11-21 13:44] LABS: Absolute Lymphocyte Count 2.39 X10^3/uL (0.83-4.51); Basophil# 0.06 X10^3/uL; Basophil% 0.9 % (0-1); Eosinophil# 0.23 X10^3/uL; Eosinophils% 3.3 % (0-5); Hematocrit 44.4 % (37-47); Hemoglobin 14.8 g/dL (12.0-15.0); Lymphocyte # 2.39 X10^3/ul (4.0); Lymphocyte % 34.3 % (19-41); Mean Corp Hgb Conc 33.3 g/dL (32-36); Mean Corpuscular Hgb 30.9 pg (27.0-32.0); Mean Corpuscular Volume 92.7 fL (81-99); Mean Platelet Vol. 10.5 fl (6.2-12.0); Monocyte# 0.31 X10^3/uL; Monocyte% 4.5 % (0-10); NRBC Flagged by Analyzer 0 % (0-5); Neutrophil # 3.95 X10^3/uL (2.7-7.7); Neutrophil % 56.7 % (47-70); Platelet Count 250 K/mm3 (150-450); RBC Distribution Width CV 13.8 % (11.6-14.6); RBC Distribution Width SD 46.6 fl (35.1-43.9); Red Blood Count 4.79 M/mm3 (4.2-5.4)
[2020-11-21 14:08] LABS: Anion Gap 6 (5-15); BUN 7 mg/dL (7-18); BUN/Creat Ratio 10.1 RATIO (10-20); Calcium,Total 9.4 mg/dL (8.5-10.1); Chloride 105 mmol/L (98-107); EST Glomerular Filtration Rate 93 mL/min (>60); Est Glom Filt Rate - Afr Amer 113 mL/min (>60); Estimated Creatinine Clearance 65.99 ml/min; Glucose 90 mg/dL (74-106); Potassium 3.6 mmol/L (3.5-5.1); Sodium Level 138 mmol/L (136-145)
[2020-11-21 14:47] VITALS: BP 172/93; PULSE 82; RESP 12; O2SAT 100
[2020-11-21] MEDS: Aspirin 81 MG TAB.CHEW 324 MG PO (14:47)
== END 2020-11-21 14:48 | disposition left against medical advice (07) ==
PROVIDERS: Emergency Provider Emergency Medicine; PCP Family Medicine
DX: R07.9 Chest pain, unspecified (principal); F31.9 Bipolar disorder, unspecified; F60.3 Borderline personality disorder; I10 Essential (primary) hypertension; K21.9 Gastro-esophageal reflux disease without esophagitis; F17.200 Nicotine dependence, unspecified, uncomplicated
CPT/HCPCS: 71045; 80048; 84484; 85025; 93005; 99285; A4216

== ENCOUNTER 2020-12-18 03:26 | Inpatient (IN) | payer MEDICAID, SELFPAY ==
[2020-12-18] VITALS (33 sets, daily range): BP systolic 105–188; BP diastolic 62–105; PULSE 59–84; RESP 13–24; TEMP 36.3–37; O2SAT 94–100; BMI 21.3; BMI 24.0
--- NOTE | 2020-12-18 03:32 | EKG12_ITS ---
Test Reason : POST CATH Blood Pressure : / mmHG Vent. Rate : 063 BPM Atrial Rate : 063 BPM P-R Int : 198 ms QRS Dur : 096 ms QT Int : 458 ms P-R-T Axes : 072 068 073 degrees QTc Int : 468 ms Normal sinus rhythm with sinus arrhythmia Normal ECG Confirmed by GLEN KING, JOE ([id number]), news editor MITA KAISER ([id number]) on 12/20/2020 2:54:56 PM Referred By: Torito Muñiz Confirmed By:JOE CARROLL MD
--- NOTE | 2020-12-18 03:33 | ED.DCSUM_ITS ---
History of Present Illness Chief Complaint: Chest Pain Informant: Patient Narrative: Stated she woke tonight with left-sided substernal chest heaviness. It happened this evening. She felt weak. Called EMS. EMS did EKG that shows an acute STEMI. EMS gave aspirin Brilinta and IV heparin. The patient takes no medications. She has a history of hypertension and smoking. She stated she was here recently and left the hospital against the advice of the physician for chest discomfort a few weeks ago. She has never had a heart attack. She does have family history of heart disease. Her discomfort in her left chest does not radiate. It is worsened by laying flat. No PE risk factors. Notes pain or swelling in her legs. No family history of aortic dissection. Current severity is moderate. No home treatment. Reviewed stress test or heart cath. - Past Medical History (1) Tobacco use disorder Status: Acute (2) Bipolar affective disorder Status: Chronic (3) Borderline personality disorder Status: Chronic (4) GERD (gastroesophageal reflux disease) Status: Chronic (5) Hypertension Status: Chronic Past Medical History - Allergies and Home Meds Allergies/Adverse Reactions: Allergies morphine Allergy (Verified 12/18/20 03:32) Hives citalopram [From Celexa] Adverse Reaction (Verified 12/18/20 03:32) Other venlafaxine [From Effexor] Adverse Reaction (Verified 12/18/20 03:32) Other Prior records reviewed: Yes Past Medical History: - - See problem list Surgical History: noncontributory Smoking Status: Current every day smoker Alcohol: None Drugs: None Review of Systems General: Denies: Chills, Fever, Sweats Eyes: Denies: Visual changes - bilaterally, Diplopia ENT: Denies: Rhinorrhea, Sore throat Cardiovascular: Reports: Chest pain. Denies: Palpitations Respiratory: Denies: Dyspnea, Cough, Dyspnea on exertion Gastrointestinal: Denies: Abdominal pain, Nausea, Vomiting, Diarrhea, Melena, Hematochezia Genitourinary: Denies: Dysuria, Hematuria, Frequency Musculoskeletal: Denies: Back pain, Extremity Pain Skin: Denies: Rash, Wounds Neurological: Reports: Weakness. Denies: Headache, Numbness Physical Exam Vital Signs/Narrative: Vital Signs Temp Pulse Resp BP Pulse Ox 12/18/20 03:27 98.6 F 61 22 H 134/80 H 100 12/18/20 03:26 61 24 H 134/80 H 100 General: Well nourished, Well developed, No Acute Distress Head: Normocephalic, Atraumatic Eyes: Perrl, EOMI ENT: Moist mucous membranes, No rhinorrhea Neck: Supple, Nontender Cardiovascular: Regular rate, Regular rhythm, No murmurs Respiratory: No distress, CTA bilaterally, Chest nontender Abdomen: Soft, Nontender, Nondistended, Normal bowel sounds Back: Nontender, Normal Inspection Extremities: Nontender, No edema Skin: Normal color, No rash Neurological: Alert, Oriented x3, Cranial nerves II-XII grossly intact, Normal Strength, Normal Sensation Psychological: Normal affect, Normal Mood Diagnostic/Tx/Re-eval - Medical Decision Making EKG shows acute STEMI with a heart rate of 57. ST elevation inferior with reciprocal depression V2 through V5. EMS gave 90 of Brilinta therefore will be given another 90 of Brilinta for total of 180. Squad gave full-strength aspirin and weightbase heparin. STEMI team activated prior to arrival upon reviewing EMS EKG. Patient given IV fluids as. Given a dose of fentanyl upon arrival. Patient is allergic to morphine. We will hold off on giving nitroglycerin as this appears like an inferior DE. Zofran will be given for nausea. Discussed the case with cardiology prehospital. Grid Trimmer activated for STEMI. My interpretation of the chest x-ray shows chronic COPD changes emphysema with hyperinflation. No pneumothorax. Mediastinum normal. - Critical Care Time Critical care time (excluding procedures): 30-74 minutes ED Disposition - Plan for ED Patient: Disposition: Acute Care Hospital [facility], [place] Diagnosis: ST elevation myocardial infarction (STEMI)
--- NOTE | 2020-12-18 03:38 | RAD_ITS ---
EXAM: XR CHEST, 1 VIEW : 1965 CLINICAL INDICATION: chest pain, pt arrived via ems for heart attack symptoms. TECHNIQUE: Frontal view of the chest. This report was created using [employer] report generation technology. COMPARISON: November 21, 2020 FINDINGS: LUNGS AND PLEURAL SPACES: Unremarkable. No consolidation or edema. No pneumothorax. No effusion. HEART: Unremarkable. Cardiac silhouette not enlarged. MEDIASTINUM: Central airways and mediastinal contour are unremarkable. BONES/JOINTS: Unremarkable. SOFT TISSUES: Unremarkable. RAD/Chest 1 View (Portable) IMPRESSION: No radiographic evidence of acute cardiopulmonary disease. at 0350 Reported and signed by: Felicia Livingston DO Electronically Signed: Felicia Livingston DO at 3:49 EST Tel , Service support ,
[2020-12-18] MEDS: fentaNYL 100 MCG/2 ML Ampul 25 MCG IV (03:39)
[2020-12-18 03:44] LABS: Absolute Lymphocyte Count 4.87 X10^3/uL (0.83-4.51); Absolute Neutrophil Count 4.6 X10^3/uL (2.0-7.7); Basophil# 0.08 X10^3/uL; Basophil% 0.7 % (0-1); Eosinophil# 0.46 X10^3/uL; Eosinophils% 4.3 % (0-5); Hematocrit 39.9 % (37-47); Hemoglobin 13.5 g/dL (12.0-15.0); Lymphocyte # 4.87 X10^3/ul (4.0); Lymphocyte % 45.4 % (19-41); Mean Corp Hgb Conc 33.8 g/dL (32-36); Mean Corpuscular Hgb 30.5 pg (27.0-32.0); Mean Corpuscular Volume 90.3 fL (81-99); Mean Platelet Vol. 11.1 fl (6.2-12.0); Monocyte# 0.74 X10^3/uL; Monocyte% 6.9 % (0-10); NRBC Flagged by Analyzer 0 % (0-5); Neutrophil # 4.55 X10^3/uL (2.7-7.7); Neutrophil % 42.5 % (47-70); Platelet Count 273 K/mm3 (150-450); RBC Distribution Width CV 13.2 % (11.6-14.6); RBC Distribution Width SD 43.4 fl (35.1-43.9); Red Blood Count 4.42 M/mm3 (4.2-5.4); White Blood Count 10.7 K/mm3 (4.4-11.0)
[2020-12-18] MEDS: 0.9% Normal Saline 1,000 ML 999 ML IV (03:50)
[2020-12-18] MEDS: Ondansetron 4 MG/2 ML Vial IV (03:50)
[2020-12-18 03:53] LABS: International Normalized Ratio 1.1; Prothrombin Time (Protime)PT. 13.5 SECONDS (11.7-14.9)
[2020-12-18 03:59] LABS: Partial Thromboplast Time 165.6 Seconds (24.1-36.2)
--- NOTE | 2020-12-18 04:04 | HP.PCM_ITS ---
Problem List (1) ST elevation myocardial infarction (STEMI) Status: Acute (2) Tobacco use disorder Status: Acute (3) Bipolar affective disorder Status: Chronic (4) Borderline personality disorder Status: Chronic (5) GERD (gastroesophageal reflux disease) Status: Chronic (6) Hypertension Status: Chronic History of Present Illness Date of Admission: 12/18/20 Chief Complaint: chest pain The patient is a 55 year old F with a significant history of hyperlipidemia; hypertension; GERD; and bipolar disorder who presents to the emergency department with left-sided chest pain that woke her from her sleep. Her symptoms started about 1 hour prior to presentation. She reports excruciating tightness of her left chest that radiates to her back. Associated with her symptoms is nausea; diaphoresis and shortness of breath. Her symptoms improved with sitting up and worsens with lying down. Prior to presentation her EKG showed STEMI. Her EKG was sent by paramedics to the ED before patient arrived. And a STEMI alert was called. Patient was at emergency department on 11/21/2020. She presented with chest pain at that time. Per ED doctor's notes she was offered hospitalization overnight for cycling of enzymes and stress test. However, she declined because she had to watch her grandchildren. She signed out AMA at that time. Past Medical History Past Medical History (Chronic Problems): Chronic Problems Borderline personality disorder (Chronic) GERD (gastroesophageal reflux disease) (Chronic) Hypertension (Chronic) Bipolar affective disorder (Chronic) Allergies morphine Allergy (Verified 12/18/20 03:32) Hives citalopram [From Celexa] Adverse Reaction (Verified 12/18/20 03:32) Other venlafaxine [From Effexor] Adverse Reaction (Verified 12/18/20 03:32) Other Home Medications: Ambulatory Orders Medication Instructions Recorded Omeprazole 40 mg PO DAILY 01/10/20 Surgical History: - - section Smoking Status: Current every day smoker Tobacco Use: Cigarettes Alcohol: None Drugs: None - *Family History Maternal History Items: Heart Disease - His father had multiple heart attacks Review of Systems Constitutional: Denies: Chills, Fever, Weight Change HEENT: Denies: Head Aches, Sinus Congestion, Sinus Drainage Cardiovascular: Reports: Chest Pain. Denies: Palpitations Respiratory: Reports: Shortness of Breath. Denies: Cough, Sputum production Gastrointestinal: Reports: Nausea. Denies: Abdominal Pain, Vomiting Genitourinary: Denies: Dysuria Musculoskeletal: Denies: Joint Pain, Joint Tenderness Skin: Denies: Rash, Wounds Neurological: Denies: Numbness, Tingling, Focal weakness Psychiatric: Denies: Anxiety, Depression, Homicidal Ideations, Suicidal Ideations Hematologic/ Lymphatic: Denies: Easy Bruising, Easy Bleeding VTE Information - Inpt Only VTE Present on Admission: No VTE Mechan Device Prophylaxis: None VTE Pharm Prophylaxis ordered?: No Reason prophylaxis not ordered:: Treatment Not Indicated - Was given heparin bolus by paramedics. Patient Problems: Active and Suspected Problems ST elevation myocardial infarction (STEMI) (Acute) Tobacco use disorder (Acute) - Physical Exam Vitals/I&O's: Vital Signs Temp Pulse Resp BP Pulse Ox 98.6 F 61 22 H 134/80 H 100 12/18/20 03:32 12/18/20 03:32 12/18/20 03:32 12/18/20 03:32 12/18/20 03:33 Oxygen Flow Rate (L/min) 2 Oxygen Delivery Method Nasal Cannula Weight: 59.9 kg Body Mass Index (BMI) 21.3 General: Alert, Oriented x3, Cooperative, - - In distress secondary to pain and anxiety HEENT: Atraumatic, EOMI, Normocephalic Oral: - - Poor dentition Neck: Supple, No JVD, Negative Carotid Bruits, Trachea Midline Lungs: Clear to auscultation, Normal air movement, No rhonchi, No wheeze, No rales Cardiovascular: Normal S1, Normal S2, No murmurs Abdomen: Bowel Sounds Present, Soft, Non Tender Extremities: No edema, Capillary Refill Less than 3 Seconds Skin: No rashes, No breakdown Musculoskeletal: No Tenderness to Palpation of Joints or Extremities Neurological: Cranial nerves II-XII grossly intact Psych/Mental Status: Anxious Laboratory Results 12/18/20 03:30: WBC 10.7, RBC 4.42, Hgb 13.5, Hct 39.9, MCV 90.3, MCH 30.5, MCHC 33.8, RDW Std Deviation 43.4, RDW Coeff of Dona 13.2, Plt Count 273, MPV 11.1, Immature Gran % (Auto) 0.200, Neut % (Auto) 42.5 L, Lymph % (Auto) 45.4 H, [place]ck[place] % (Auto) 6.9, Eos % (Auto) 4.3, Baso % (Auto) 0.7, Absolute Neuts (auto) 4.6, Absolute Lymphs (auto) 4.87 H, Nucleated RBC % 0 12/18/20 03:30: PT 13.5, INR 1.1, APTT 165.6 H* 12/18/20 03:30: Sodium Pending, Potassium Pending, Chloride Pending, Carbon Dioxide Pending, Anion Gap Pending, BUN Pending, Creatinine Pending, Est GFR (MDRD) Af Amer Pending, Est GFR (MDRD) Non-Af Pending, BUN/Creatinine Ratio Pending, Glucose Pending, Calcium Pending, Troponin I Pending Assessment/Plan All Active Problems ST elevation myocardial infarction (STEMI) (Acute) Tobacco use disorder (Acute) The patient is a 55 year old F with a significant history of hypertension; GERD; who presents to the emergency department with chest pain and found to have ST elevation TN in inferior leads and with reciprocal ST depressions and T wave inversions. ST elevation TN EKG taken by paramedics and sent to the emergency department before patient arrived was reviewed. It showed ST elevation in inferior leads with reciprocal ST depression and T wave inversions. Repeat EKG when patient arrived at emergency department was consistent with EKG taken by paramedics. Patient was given aspirin; Brilinta; heparin bolus by the paramedics before she got to the emergency department. Normal saline bolus at the emergency department. Patient was seen by myself at bedside at the emergency department and also by ED doctor. The patient was wheeled to the [facility] for further intervention. Follow cardiology recommendations and post STEMI care after patient returned from [facility]. Tobacco abuse Patient smokes cigarettes. Counseled when appropriate. GEOVANNY Florylosec continued Hypertension On presentation blood pressure was elevated Per ED doctor's notes on 11/21/2020 patient is afraid to take her blood pressure medication because of low blood pressure and syncope. Paramedics confirmed similar information. Patient supposed to be on lisinopril. Trend blood pressures DVT prophylaxis Received heparin bolus prior to coming to the emergency department. Inpatient E&M: 13107 Init Hosp L3
[2020-12-18 04:07] LABS: Anion Gap 6 (5-15); BUN 14 mg/dL (7-18); BUN/Creat Ratio 19.3 RATIO (10-20); Calcium,Total 9.3 mg/dL (8.5-10.1); Chloride 106 mmol/L (98-107); Creatinine, Serum 0.73 mg/dL (0.55-1.02); EST Glomerular Filtration Rate 89 mL/min (>60); Est Glom Filt Rate - Afr Amer 107 mL/min (>60); Estimated Creatinine Clearance 82.47 ml/min; Glucose 125 mg/dL (74-106); Potassium 3.4 mmol/L (3.5-5.1); Sodium Level 138 mmol/L (136-145)
--- NOTE | 2020-12-18 04:40 | CL.PCI_ITS ---
PCI Cardiac Cath Report PCI Report: Procedure performed; 1. Moderate sedation. #2 left heart catheterization 3. Successful percutaneous current elevation of the culprit lesion, occluded proximal RCA with HUONG 0 flow Achievement of HUONG III flow postprocedure with placement of drug-eluting stent 3.5 x 22 mm resolute stent. 4. Measurement of LVEDP. Preprocedure diagnosis this patient is a 55-year-old patient who presented with severe retrosternal chest pain, evidently this wake her up from sleep STEMI alert was called due to significant symptoms of chest pain and ST elevation in the inferior lead prominent more than 2 mm in leads II, III and aVF and reciprocal change in the anterior lead V1 V2. Evidently patient was seen in the hospital in 13 November last year 2019, when she had similar episode of chest pain seen in the ER and as she been taking care of grandkids at home she declined admission to hospital. Past medical history significant for hypertension and patient currently is a smoker no other significant past medical history in particular no prior breast sent D2 and D3 are small vessels There are abundant septal branches. The left circumflex artery is normal angiographically. The RCA is occluded proximally with HUONG 0 flow, following the successful PCI of the culprit to the RCA and a placement of drug-eluting stent/resolute we achieve HUONG III flow with significant improvement in her symptoms of chest pain, 0 chest pain and remarkable improvement in the ST elevation. Patient remained s table hemodynamically. Recommendation details of the procedure; Patient presented with acute inferior myocardial infarction, with ST elevation in the inferior lead, and reciprocal change in the in the anterior leads, patient brought to the cardiac catheterization lab as an emergency. Risk and benefits of procedure explained patient elected to proceed and informed consent obtained. Catheter used and interventional equipment; 6 Taiwanese sheath placed in the right radial artery, 5 Taiwanese JL4, 5 Taiwanese JR4 Interventional equipment include 5 Taiwanese JR4 guide, run-through wire, 3.5 x 22 mm resolute stent. Patient brought to the Tack Welder, local anesthetic, using 2% lidocaine infiltrated in the right radial artery area, 6 Taiwanese sheath placed the right radial artery. Under fluoroscopic guidance we proceed with JR4 5 Taiwanese catheter selective angiography of right coronary system obtained, following this catheter exchange And will proceed with the 5 Taiwanese JL 4 catheter and selective angiographic view of the left coronary system were obtained. Following this angiographic view of her study and the culprit lesion was identified as occluded proximal RCA. She will proceed with a run-through wire across the lesion. Without difficulty then will proceed with placement of stent/direct stenting as it is a soft plaque. There use 3.5 x 22 mm resolute went up to 12 CHERYLE and achievement of HUONG III flow. With no complication in the Tack Welder. During the procedure noted ST elevation resolved and symptoms of chest pain resolved however she was nauseated and was given some Zofran. Total amount of heparin use in this case is 9000 international unit and ACT level was 285. Patient was given aspirin and Brilinta in the emergency department. Patient also was on IV normal saline. Conclusion and plan; Hemodynamic; LVEDP measured 5 mmHg JR4 catheter was used to cross aortic valve and placement in the mid ventricle for measurement of LVEDP. Current angiography; Left main coronary normal angiographically it is a large vessel, bifurcating into left anterior descending and the left circumflex The left anterior descending artery is a large vessel reaches to the apex Angiographically the mid LAD had 20 to 30%, D1 had ostial lesion of around 50- 60%. D2, D3 are small vessels and norm angiographically, abundant septal branches were noted Left circumflex artery normal angiographically. Right coronary artery large dominant with occluded proximally, with HUONG 0 flow prior to the procedure, achievement of HUONG-3 flow post procedure With no complication in the Tack Welder. Symptoms of chest pain resolved and ST elevation resolved and patient remained stable hemodynamically. Status is maintained with placement of a TR band to the right radial artery arteriotomy site with no complication. Recommendation and plan; 1. We will continue dual antiplatelet therapy with Brilinta 90 mg twice a day/l ow-dose aspirin 81 mg 2. Patient will be admitted to the intensive care unit. 3. We will check fasting lipid panel and will start on Lipitor 40 mg a day 4. Patient advised cessation of smoking. 5. Echocardiogram will be performed on Saturday 6. Series of high sensitive troponin will be checked during this admission 7. We will plan for outpatient rehabilitation 8. Patient will follow-up in the cardiology outpatient for continued of cardiac care plan and if remained stable she may stay in hospital for 2 days.
--- NOTE | 2020-12-18 05:00 | EKG12_ITS ---
Test Reason : AM EKG Blood Pressure : / mmHG Vent. Rate : 068 BPM Atrial Rate : 068 BPM P-R Int : 162 ms QRS Dur : 092 ms QT Int : 450 ms P-R-T Axes : 072 053 -14 degrees QTc Int : 478 ms Normal sinus rhythm T wave abnormality, consider inferior ischemia Abnormal ECG When compared with ECG of 18-DEC-2020 05:24, MANUAL COMPARISON REQUIRED, DATA IS UNCONFIRMED Confirmed by JORJE KING, LEONIDES ([id number]), graphics editor MITA KAISER ([id number]) on 12/21/2020 11:24:19 AM Referred By: Torito Muñiz Confirmed By:LEONIDES RECINOS MD
--- NOTE | 2020-12-18 05:20 | RAD_ITS ---
stent placement after NV EXAMINATION/TECHNIQUE: XR Chest 1 View: COMPARISON: December 18, 2020 at 1 8 9 AM FINDINGS: LINES/DEVICES: None. LUNGS: No consolidation, edema or effusion. No pneumothorax. MEDIASTINUM AND CARDIOVASCULAR STRUCTURES: Cardiac silhouette not enlarged. Central airways and mediastinal contour are unremarkable. BONES AND SOFT TISSUES: Unremarkable. RAD/Chest 1 View (Portable) IMPRESSION: No radiographic evidence of acute cardiopulmonary disease. at 0614 Reported and signed by: Felicia Livingston DO Electronically Signed: Felicia Livingston DO at 6:12 EST Tel , Service support ,
[2020-12-18] MEDS: 0.9% Normal Saline 1,000 ML 150 ML IV (05:33)
[2020-12-18 05:45] LABS: Absolute Lymphocyte Count 2.11 X10^3/uL (0.83-4.51); Absolute Neutrophil Count 11.1 X10^3/uL (2.0-7.7); Basophil# 0.08 X10^3/uL; Basophil% 0.6 % (0-1); Eosinophils% 1.4 % (0-5); Hematocrit 36.7 % (37-47); Hemoglobin 12.3 g/dL (12.0-15.0); Lymphocyte # 2.11 X10^3/ul (4.0); Lymphocyte % 14.9 % (19-41); Mean Corp Hgb Conc 33.5 g/dL (32-36); Mean Corpuscular Hgb 30.4 pg (27.0-32.0); Mean Corpuscular Volume 90.6 fL (81-99); Mean Platelet Vol. 10.5 fl (6.2-12.0); Monocyte# 0.57 X10^3/uL; NRBC Flagged by Analyzer 0 % (0-5); Neutrophil # 11.14 X10^3/uL (2.7-7.7); Neutrophil % 78.7 % (47-70); Platelet Count 263 K/mm3 (150-450); RBC Distribution Width CV 13.2 % (11.6-14.6); RBC Distribution Width SD 44.2 fl (35.1-43.9); Red Blood Count 4.05 M/mm3 (4.2-5.4); White Blood Count 14.2 K/mm3 (4.4-11.0)
[2020-12-18 05:55] LABS: International Normalized Ratio 1.2; Prothrombin Time (Protime)PT. 14.5 SECONDS (11.7-14.9)
[2020-12-18 06:09] LABS: AST(SGOT) 14 U/L (15-37); Alanine Aminotransfer ALT/SGPT 14 U/L (13-56); Albumin, Serum 3.1 g/dL (3.2-5.0); Alkaline Phosphatase 60 U/L (45-117); Anion Gap 5 (5-15); BUN 13 mg/dL (7-18); BUN/Creat Ratio 20.7 RATIO (10-20); Calcium,Total 8.5 mg/dL (8.5-10.1); Chloride 106 mmol/L (98-107); Creatinine, Serum 0.63 mg/dL (0.55-1.02); EST Glomerular Filtration Rate 105 mL/min (>60); Est Glom Filt Rate - Afr Amer 127 mL/min (>60); Estimated Creatinine Clearance 73.33 ml/min; Glucose 102 mg/dL (74-106); Potassium 3.6 mmol/L (3.5-5.1); Protein, Total 6.1 g/dL (6.4-8.2); Sodium Level 137 mmol/L (136-145)
[2020-12-18 06:19] LABS: Partial Thromboplast Time > 250.0 Seconds (24.1-36.2)
[2020-12-18 07:13] LABS: BNP,B-Type NATRIURETIC PEPTIDE 28.5 pg/mL (0-100)
--- NOTE | 2020-12-18 07:33 | PCM.PN.BLA ---
Progress Note Patient presented to the emergency room because of chest pain, found to have EKG changes including ST elevation in leads II and III, aVF with reciprocal changes of inverted T waves in leads aVL, V3 to V6. First troponin was negative. Patient underwent emergent cardiac catheterization, found to have complete occlusion of the RCA, status post PTCA/ALYSSIA. Currently, she has no more chest pain. Repeat EKG revealed resolution of those EKG changes. Her vital signs are stable. Physical examination essentially unremarkable. She is on aspirin, statins and Brilinta. Cardiology on the case. Plan to start her on metoprolol. STROKE Vital Signs/Narrative: Vital Signs Pulse Resp BP BP Pulse Ox 12/18/20 06:00 59 L 13 122/80 H 100 12/18/20 05:30 71 18 105/65 100 12/18/20 05:15 73 15 113/92 H 100 12/18/20 05:00 67 17 127/62 H 100 12/18/20 04:45 60 18 120/79 100
[2020-12-18] MEDS: Metoprolol Tartrate 25 MG Tablet 12.5 MG PO ×2 (08:19→22:02)
[2020-12-18] MEDS: Aspirin 81 MG TAB.CHEW PO (08:20)
[2020-12-18] MEDS: TICAGRELOR 90 MG TABLET PO ×2 (08:20→22:00)
[2020-12-18] MEDS: Pantoprazole Sodium 40 MG Tablet PO (08:20)
[2020-12-18] MEDS: 0.9% Saline Lock 10 ML Syringe IV (13:08)
[2020-12-18] MEDS: hydrALAZINE 20 MG/ML Vial 10 MG IV (13:08)
--- NOTE | 2020-12-18 14:38 | CON.PCM_ITS ---
Reason for Consult Date of Consultation: 12/18/20 History of Present Illness: The patient is a 55 year old F presented with sudden onset of chest pain woke her up in the morning around 2:00 AM, with severe retrosternal chest pain Has STEMI with acute inferior myocardial infarction. , Past Medical History Allergies/Adverse Reactions: Allergies morphine Allergy (Verified 12/18/20 03:32) Hives citalopram [From Celexa] Adverse Reaction (Verified 12/18/20 03:32) Other venlafaxine [From Effexor] Adverse Reaction (Verified 12/18/20 03:32) Other Home Medications: Ambulatory Orders Medication Instructions Recorded Omeprazole 40 mg PO DAILY 01/10/20 Past Medical History (Chronic Problems): Chronic Problems Borderline personality disorder (Chronic) GERD (gastroesophageal reflux disease) (Chronic) Hypertension (Chronic) Bipolar affective disorder (Chronic) Surgical History: - - section - *Family History Maternal History Items: Heart Disease - His father had multiple heart attacks Smoking Status: Current every day smoker Tobacco Use: Cigarettes Alcohol: None Drugs: None Objective: Vital Signs Temp Pulse Resp BP Pulse Ox 97.4 F L 84 16 119/71 95 12/18/20 14:00 12/18/20 14:00 12/18/20 14:00 12/18/20 14:00 12/18/20 14:00 Oxygen Flow Rate (L/min) 2 Oxygen Delivery Method Room Air Weight: 122 lb 12.76 oz Body Mass Index (BMI) 24.0 Intake and Output for Last 24 Hours 12/16/20 12/17/20 12/18/20 23:59 23:59 23:59 Intake Total 2360 / 2360 Output Total 600 / 600 Balance 1760 / 1760 General: Awake, Alert, Oriented x 3 HEENT: PERRL, EOMI, Sclera Non Icteric Neck: Supple, Good ROM, No Lymph Node Enlargement Lungs: Clear to auscultation Cardiovascular: Regular Rhythm, Normal S1, Normal S2, No Murmurs, No Rubs, No Gallops Vascular: Normal Femoral Pulses, Normal Radial Pulses, Normal Dorsalis Pedal Pulse, Normal Posterior Tibial Pulses Abdomen: Bowel Sounds Present, Soft, Non Tender, No HSM, No Organomegaly Extremities: No Cyanosis, No Clubbing, No edema Neurological: No Focal Motor or Sensory Deficit 12/18/20 03:30: WBC 10.7, RBC 4.42, Hgb 13.5, Hct 39.9, MCV 90.3, MCH 30.5, MCHC 33.8, Plt Count 273, MPV 11.1, Immature Gran % (Auto) 0.200, Neut % (Auto) 42.5 L, Lymph % (Auto) 45.4 H, Sterling % (Auto) 6.9, Eos % (Auto) 4.3, Baso % (Auto) 0.7, Absolute Neuts (auto) 4.6, Nucleated RBC % 0 12/18/20 03:30: PT 13.5, INR 1.1, APTT 165.6 H* 12/18/20 03:30: Sodium 138, Potassium 3.4 L, Chloride 106, Carbon Dioxide 26.0, Anion Gap 6, BUN 14, Creatinine 0.73, Est GFR (MDRD) Af Amer 107, Est GFR (MDRD) Non-Af 89, BUN/Creatinine Ratio 19.3, Glucose 125 H, Calcium 9.3, Troponin I < 0.015 12/18/20 05:28: Sodium 137, Potassium 3.6, Chloride 106, Carbon Dioxide 26.0, Anion Gap 5, BUN 13, Creatinine 0.63, Est GFR (MDRD) Af Amer 127, Est GFR (MDRD) Non-Af 105, BUN/Creatinine Ratio 20.7 H, Glucose 102, Calcium 8.5, Total Bilirubin 0.30, Troponin I 1.570 H* 12/18/20 05:28: B-Natriuretic Peptide 28.5 12/18/20 05:28: WBC 14.2 H, RBC 4.05 L, Hgb 12.3, Hct 36.7 L, MCV 90.6, MCH 30.4, MCHC 33.5, Plt Count 263, MPV 10.5, Immature Gran % (Auto) 0.400, Neut % (Auto) 78.7 H, Lymph % (Auto) 14.9 L, Sterling % (Auto) 4.0, Eos % (Auto) 1.4, Baso % (Auto) 0.6, Absolute Neuts (auto) 11.1 H, Nucleated RBC % 0 12/18/20 05:28: PT 14.5, INR 1.2, APTT > 250.0 H* 12/18/20 09:30: Troponin I 10.700 H* Rhythm: Most cardiac catheterization and 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 EKG: The electrocardiogram revealed ST elevation in the inferior lead with reciprocal change in the anterior lead This is consistent with acute inferior myocardial infarction/STEMI, Assessment/Plan 55-year-old patient, developed severe retrosternal chest pain early in the morning EMS service called And was brought into the ER with STEMI alert and significant ST elevation in the inferior leads and reciprocal change in the anterior lead Patient lives at home she has 3 grandchildren, smoker And also has history of hypertension however she is not on medication Evidently patient was recently here in the hospital in October last year and discharged from the ER, she declined admission to hospital. Patient underwent emergency cardiac catheterization, which revealed occluded proximal RCA with successful PCI and placement of a drug-eluting stent 3.5 x 22 resolute She has nonobstructive atherosclerosis involving the LAD mid LAD around 20-30% and had intermediate lesion involving D1 around 50 to 60% The left circumflex and left main coronary arteries are normal. The RCA was a large dominant vessel. Postprocedure patient symptoms of chest pain resolved as well as the electrocardiogram showed remarkable improvement. Today at bedside she is comfortable she does not have any further episode of chest pain she is anxious for discharge home Assessment and plan;. 1. I reviewed the current medication will continue on dual antiplatelet therapy aspirin/Brilinta for nearly 1 year and low-dose aspirin indefinitely 2. Atorvastatin 3. Beta-iban carvedilol 3.125 mg twice a day Patient will be evaluated further with echocardiogram in the morning She will follow up with the cardiology team for continuation of cardiac care plan and medical management. 4. Advised the patient of cessation of smoking Cardiac care plan discussed in detail with the patient and nursing staff.
[2020-12-18] MEDS: Lisinopril 5 MG Tablet PO (16:20)
[2020-12-18] MEDS: MELATONIN 3 MG TABLET PO (22:00)
[2020-12-18] MEDS: Atorvastatin Calcium 40 MG Tablet PO (22:00)
[2020-12-19] VITALS (15 sets, daily range): BP systolic 124–164; BP diastolic 66–99; PULSE 70–84; RESP 15–22; TEMP 36.7–37.1; O2SAT 94–985
[2020-12-19] MEDS: Acetaminophen 325 MG Tablet 650 MG PO (04:31)
[2020-12-19 04:33] LABS: Absolute Lymphocyte Count 2.34 X10^3/uL (0.83-4.51); Absolute Neutrophil Count 4.6 X10^3/uL (2.0-7.7); Basophil# 0.05 X10^3/uL; Basophil% 0.6 % (0-1); Eosinophil# 0.25 X10^3/uL; Eosinophils% 3.2 % (0-5); Hematocrit 36.8 % (37-47); Hemoglobin 12.4 g/dL (12.0-15.0); Lymphocyte # 2.34 X10^3/ul (4.0); Lymphocyte % 30.3 % (19-41); Mean Corp Hgb Conc 33.7 g/dL (32-36); Mean Corpuscular Hgb 30.1 pg (27.0-32.0); Mean Corpuscular Volume 89.3 fL (81-99); Mean Platelet Vol. 10.2 fl (6.2-12.0); Monocyte# 0.44 X10^3/uL; Monocyte% 5.7 % (0-10); NRBC Flagged by Analyzer 0 % (0-5); Neutrophil # 4.61 X10^3/uL (2.7-7.7); Neutrophil % 59.8 % (47-70); Platelet Count 270 K/mm3 (150-450); RBC Distribution Width CV 13.2 % (11.6-14.6); RBC Distribution Width SD 43.9 fl (35.1-43.9); Red Blood Count 4.12 M/mm3 (4.2-5.4); White Blood Count 7.7 K/mm3 (4.4-11.0)
[2020-12-19 04:50] LABS: Anion Gap 6 (5-15); BUN 10 mg/dL (7-18); BUN/Creat Ratio 18.7 RATIO (10-20); Calcium,Total 8.9 mg/dL (8.5-10.1); Chloride 108 mmol/L (98-107); Cholesterol 242 mg/dL (200); Creatinine, Serum 0.54 mg/dL (0.55-1.02); EST Glomerular Filtration Rate 126 mL/min (>60); Est Glom Filt Rate - Afr Amer 153 mL/min (>60); Estimated Creatinine Clearance 85.55 ml/min; Glucose 87 mg/dL (74-106); High Density Lipoprotein 43 mg/dL; Potassium 3.6 mmol/L (3.5-5.1); Sodium Level 138 mmol/L (136-145); Triglycerides 108 mg/dL; Very Low Density Lipoprotein 22 mg/dL (5-40)
--- NOTE | 2020-12-19 06:50 | CRPHASE1_ITS ---
Patient Communication PHII Cardiac Rehab Discussed with Patient:: Yes Guide to Cardiac Rehab Given to Patient:: Yes Cardiac Rehab Facility Choice List Given to Patient:: Yes Choice Program [facility] CR PHII:: Communication Given to CR, Refer to [facility] Supervisor [employer] Services:: Torito Muñiz Phase II Cardiac Rehab:: Yes Sessions:: 36 sessions - 3 days/wk, 12 weeks Risk Factors/Lifestyle Laboratory Values: Cardiac Rehab Phase I Labs Triglycerides 108 mg/dL (-199) 12/19/20 04:27 Cholesterol 242 mg/dL (200) H 12/19/20 04:27 LDL Cholesterol 177 mg/dL (0-130) H 12/19/20 04:27 HDL Cholesterol 43 mg/dL (40-) 12/19/20 04:27 Cardiac Rehabilitation Info Cardiac Rehabilitation Program Information: Cardiac Rehabilitation is important for patients like you who are recovering from a heart problem. Cardiac rehabilitation programs are recognized as integral to the continued care of the patient with coronary heart disease. The cardiac rehabilitation program is designed to optimize a patient's physical, psychological, and social functioning. Health medicare insurance specialist work in cardiac rehabilitation programs and assist you with getting the treatments you need to get stronger and healthier - like exercise, healthy eating habits, and medications. Cardiac rehabilitation has been show to help people with heart problems live longer and have better life enjoyment than people who do not go to cardiac rehabilitation. Please contact the Cardiac Rehabilitation Program at [facility] at in two weeks if you have not heard from them.
--- NOTE | 2020-12-19 06:51 | CRPH1.INST_ITS ---
General Education CAD and cardiac anatomy and function:: Patient communicates acknowledgment Explanation of diagnoses and procedures:: Patient communicates acknowledgment Sign/Symptoms of [place]:: Patient communicates acknowledgment Antiplatelet therapy: Patient communicates acknowledgment Proper use of NTG-SL: Patient communicates acknowledgment Emergency procedures and activation of EMS: Patient communicates acknowledgment Compliance of all prescribed medications: Patient communicates acknowledgment Smoking Patient Nicotine/Smoking Risk Factors Are:: Cigarettes Recommendations Include:: Smoking cessation strategies/Smoking packet, Second- hand smoke recommendation, Participation in a smoking cessation program Nicotine/Smoking Response Code:: Patient communicates acknowledgment, Needs reinforcement Dyslipidemia Patient Dyslipidemia Risk Factors Are:: Total Cholesterol - 242, Triglycerides - 108, HDL - 43, LDL - 177 Recommendations Include:: Lipid profile provided, Reviewed NCEP/ATP guidelines, Therapeutic Lifestyle Change dietary guidelines Dyslipidemia Response Code:: Patient communicates acknowledgment Hypertension Recommendations Include:: Maintain BP <130/85, DASH dietary guidelines, Decrease/maintain normal body weight Hypertension:: Patient communicates acknowledgment, Needs reinforcement Heart Disease Patient Heart Disease Risk Factors Are:: Family history of heart disease < 65 years old Recommendations Include:: Educated family members of their risk Heart Disease Response Code:: Patient communicates acknowledgment
--- NOTE | 2020-12-19 07:51 | PN.CARD_ITS ---
Subjectve: Patient seen and evaluated Objective: Vital Signs Temp Pulse Resp BP Pulse Ox 98.7 F 78 16 143/95 H 94 12/19/20 00:00 12/19/20 06:00 12/19/20 06:00 12/19/20 06:00 12/19/20 07:08 Oxygen Flow Rate (L/min) 2 Oxygen Delivery Method Room Air Weight: 123 lb 0.287 oz Body Mass Index (BMI) 24.0 Intake and Output for Last 24 Hours 12/17/20 12/18/20 12/19/20 23:59 23:59 23:59 Intake Total 3110 / 3110 Output Total 1950 / 1950 Balance 1160 / 1160 General: Awake, Alert, Oriented x 3 HEENT: PERRL, EOMI, Sclera Non Icteric Neck: Supple, Good ROM, No Lymph Node Enlargement Lungs: Clear to auscultation Cardiovascular: Regular Rhythm, Normal S1, Normal S2, No Murmurs, No Rubs, No Gallops Vascular: No Carotid Bruits, Normal Femoral Pulses, Normal Radial Pulses, Normal Dorsalis Pedal Pulse, Normal Posterior Tibial Pulses Abdomen: Bowel Sounds Present, Soft, Non Tender, No HSM, No Organomegaly Extremities: No Cyanosis, No Clubbing, No edema Musculoskeletal: No Erythema Skin: No Rashes Lymphatic: No Lymph Node Enlargement Neurological: No Focal Motor or Sensory Deficit Psych/Mental Status: Appropriate 12/18/20 09:30: Troponin I 10.700 H* 12/19/20 04:27: WBC 7.7, RBC 4.12 L, Hgb 12.4, Hct 36.8 L, MCV 89.3, MCH 30.1, MCHC 33.7, Plt Count 270, MPV 10.2, Immature Gran % (Auto) 0.400, Neut % (Auto) 59.8, Lymph % (Auto) 30.3, [place] % (Auto) 5.7, Eos % (Auto) 3.2, Baso % (Auto) 0.6, Absolute Neuts (auto) 4.6, Nucleated RBC % 0 12/19/20 04:27: Sodium 138, Potassium 3.6, Chloride 108 H, Carbon Dioxide 24.0, Anion Gap 6, BUN 10, Creatinine 0.54 L, Est GFR (MDRD) Af Amer 153, Est GFR (MDRD) Non-Af 126, BUN/Creatinine Ratio 18.7, Glucose 87, Calcium 8.9, Triglycerides 108, Cholesterol 242 H, LDL Cholesterol 177 H, VLDL Cholesterol 22, HDL Cholesterol 43 Rhythm: EKG: ECHO: Stress Test: Cardiac Cath: PCI: CT Surgery: Holter monitor: EPS: PPM: CXR: Chest CT Scan: Medical Necessity - Tobacco Use Smoking Status: Current every day smoker Tobacco Use: Cigarettes Assessment/Plan 1. Patient S/P right coronary artery stenting. Status post acute inferior myocardial infarction. * Patient seen and evaluated. Appears to be doing quite well. Had no problems overnight. No chest pain or shortness of breath. EKG demonstrates normal sinus mechanism with no acute changes. * Would recommend continue with current medication with aspirin, beta-iban, AVTAR inhibitor, statin, ticagrelor. * Patient set up for follow-up with cardiac rehabilitation as well. * Echocardiogram to assess left ventricular function * Thank you for allowing me to participate in the care of your patient. Please don't hesitate to call if any issues arise.
[2020-12-19 08:51] LABS: Magnesium 1.9 mg/dL (1.6-2.6); Phosphorus 3.2 mg/dL (2.5-4.9)
--- NOTE | 2020-12-19 10:01 | CASEMGMT ---
RN CM Assessment Note Introduced role of CM to patient in room. Demographics, PCP verified. Patient is awake, alert and able to participate in assessment. Reviewed Brilinta and savings card given. Advised patient to have pharmacy check copay after first month and if medication is cost prohibitive to contact registered respiratory therapist office. Discussed smoking cessation. Patient stated she had no idea smoking could be related to heart issues but registered respiratory therapist advised her to quit smoking. Pt does not have concerns re: discharge. Presentation: chest pain Diagnosis: STEMI PCP: Dr. Ellis Crandall Specialists: Dr. Lopez Insurance: [place] Preferred Pharmacy: [facility] Prescription Benefit: yes LNOK: SonDenilson Living Arrangements: Lives independently @ home. Denies any care needs. Tranportation: drives or family can drive. DME: none HHC: none SNF: none Patient DC Goals: DC Plan: Home on dc. States her son or friend can pick her up. No care needs identified and pt has Brilinta savings card to give to her pharmacist. Cosmo KINSEYN RN ACM
[2020-12-19] MEDS: Metoprolol Tartrate 25 MG Tablet 12.5 MG PO (10:34)
[2020-12-19] MEDS: TICAGRELOR 90 MG TABLET PO (10:36)
[2020-12-19] MEDS: Aspirin 81 MG TAB.CHEW PO (10:36)
--- NOTE | 2020-12-19 11:30 | DCINST_ITS ---
- Discharge Diagnoses Current Active Problems: Current Active and Chronic Problems (Last Updated 12/19/20 @ 10:17 by Chela Rico) Borderline personality disorder (Chronic) GERD (gastroesophageal reflux disease) (Chronic) Hypertension (Chronic) ST elevation myocardial infarction (STEMI) (Acute) Tobacco use disorder (Acute) Bipolar affective disorder (Chronic) You will use the following diet at home:: Cardiac Your food should be the consistency of: Regular Your liquids should be the consistency of: Regular/Thin Discharge Activity: May Not Drive - For 1 week until see his PCP Weight Bearing Status: Weight bearing as tolerated Call your doctor if you observe: Fever of 101 or Higher, Numbness or Tingling, Change in Color, Inability to urinate, Inability to have a bowel movement, Using more than one pad per hour, Shortness of breath, Dizziness, Fainting spells, Swelling in the ankles, Chest pain, Prolonged hiccoughing, Calf discomfort, Uncontrolled pain Additional Instructions: Cardiac rehab program as per STEMI protocol Allergies/Adverse Reactions: Allergies morphine Allergy (Verified 12/18/20 03:32) Hives citalopram [From Celexa] Adverse Reaction (Verified 12/18/20 03:32) Other venlafaxine [From Effexor] Adverse Reaction (Verified 12/18/20 03:32) Other Medications to take at Discharge Omeprazole 40 mg PO DAILY 01/10/20 Aspirin [Aspirin, Baby] 81 mg PO DAILY@0800 #30 tab.chew 12/19/20 Atorvastatin Calcium [Lipitor] 40 mg PO QHS #30 tab 12/19/20 Lisinopril [Zestril] 5 mg PO DAILY #30 tab 12/19/20 Metoprolol Tartrate [Lopressor (beta iban)] 12.5 mg PO BID #60 tab 12/19/20 Ticagrelor [Brilinta] 90 mg PO BID #60 tab 12/19/20 The following prescriptions were given: Aspirin [Aspirin, Baby] 81 mg PO DAILY@0800 #30 tab.chew Transmission Status: Pending to [facility] #30 Ticagrelor [Brilinta] 90 mg PO BID #60 tab Transmission Status: Pending to [facility] #30 Atorvastatin Calcium [Lipitor] 40 mg PO QHS #30 tab Transmission Status: Pending to [facility] #30 Metoprolol Tartrate [Lopressor (beta iban)] 12.5 mg PO BID #60 tab Transmission Status: Pending to [facility] #30 Lisinopril [Zestril] 5 mg PO DAILY #30 tab Transmission Status: Pending to [facility] #30 Primary Care Physician: Ellis Crandall MD [Primary Care Provider] - Please follow up with your Primary Care Physician in: In 1 to 2 weeks Test Results: Test results from this visit will be discussed in further detail at your follow- up appointment, if applicable. Please Follow Up With: Tc Lopez MD When: Allergies scheduled
[2020-12-19] MEDS: Lisinopril 5 MG Tablet PO (11:31)
--- NOTE | 2020-12-19 11:59 | DS.PCM_ITS ---
Discharge Date and Diagnosis - Problem List Patient Problems: Active and Suspected Problems (Last Updated 12/19/20 @ 10:17 by Chela Rico) ST elevation myocardial infarction (STEMI) (Acute) Tobacco use disorder (Acute) Date of Admission: 12/18/20 Date of Discharge: 12/19/20 - Primary Discharge Diagnosis Acute Problems: Active Problems (Last Updated 12/19/20 @ 10:17 by Chela Rico) ST elevation myocardial infarction (STEMI) (Acute) Tobacco use disorder (Acute) - Secondary Discharge Diagnosis Chronic Problems: Chronic Problems (Last Updated 12/19/20 @ 10:17 by Chela Rico) Presence of stent in coronary artery (Chronic ~12/18/20) Successful percutaneous current elevation of the culprit lesion, occluded proximal RCA with HUONG 0 flow Achievement of HUONG III flow postprocedure with placement of drug-eluting stent 3.5 x 22 mm resolute stent. per cath 12/18/20 Atherosclerotic heart disease of [place] coronary artery without angina pectoris (Chronic) Borderline personality disorder (Chronic) GERD (gastroesophageal reflux disease) (Chronic) Hypertension (Chronic) Bipolar affective disorder (Chronic) Hospital Course and Treatment Summary of Care Provided: The patient is a 55 year old F with history of hypertension, dyslipidemia, GERD, chronic cigarette smoking, bipolar disorder was admitted with left-sided chest pain that woke her sleep about 1 hour prior to ER presentation. Patient had associated symptoms of shortness of breath, nausea and diaphoresis.Twelve-lead EKG shows ST elevation in lead to 3 and aVF with reciprocal changes of inverted T waves in aVL and V3 to V6 consistent with inferior wall STEMI. STEMI alert was called and patient was taken to [facility] as per STEMI protocol. Cardiac cath shows occluded proximal RCA for which PCI/DA was done. She also has nonobstructive atherosclerosis mid LAD, 20 to 30%, D1 50 to 60%. RCA large dominant vessel. First troponin was normal but subsequent troponins were high. Patient was managed in ICU with guideline directed treatment with aspirin, Brilinta, metoprolol, lisinopril and high intensity atorvastatin. Fasting profile total cholesterol 242, LDL 177. 2D echo shows EF 47% with normal left and right atrium. Mild TR. 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 Patient does not have patient was evidence of leg edema, pulmonary edema. Counseled to stop smoking. Patient's other comorbidities include hypertension, GERD, chronic cigarette smoking/nicotine use. Prescription was sent to the patient's pharmacy. [] Discharge medication reconciliation done. Discharge follow-up instructions completed. Blood pressure in acceptable limit. Discharge process discussed with the patient and all questions were answered to patient's satisfaction. Follow-up with director paid media Dr. Lopez and PCP to further uptitrate beta-shay and ZHENG inhibitor. Total time spent, exact 35 minutes on discharge meds reconciliation, examination, coordination of care with nurses and ancillary staff, review of imaging and blood test and discussion with the patient on follow-up instructions Patient Problems: Active and Suspected Problems (Last Updated 12/19/20 @ 10:17 by Chela Rico) ST elevation myocardial infarction (STEMI) (Acute) Tobacco use disorder (Acute) Objective: Patient did not have chest pain or shortness of breath. Denies any palpitation, dizziness overnight. On cardiac cath rn 2x8 beats of NSVT. Patient has history of smoking more than a pack per day since teenage. General: Alert, Oriented x3, Cooperative HEENT: Atraumatic, PERRLA, EOMI, Normocephalic Oral: No Gingival or Mucosal Lesions/ Ulcerations Neck: Supple, No JVD, Negative Carotid Bruits Lungs: Air entry diminished in bilateral lung bases. No crepitation/rhonchi or crepitations Cardiovascular: Regular rate, Regular Rhythm, Normal S1, Normal S2, grade 3/6 midsystolic murmur over LLSB Abdomen: Bowel Sounds Present, Soft, Non Tender, Non-Distended : No renal angle tenderness. No suprapubic tenderness. Extremities: No edema, Capillary Refill Less than 3 Seconds Skin: No rashes, No breakdown Musculoskeletal: No Tenderness to Palpation of Joints or Extremities Neurological: Cranial nerves II-XII grossly intact, Deep Tendon Reflexes 2+/4 and Symmetrical, Neuro grossly intact Psych/Mental Status: Normal Affect, Appropriate. - Physical Exam Vitals/I&O's: Vital Signs Temp Pulse Resp BP Pulse Ox 98.1 F 79 20 H 158/86 H 97 12/19/20 08:00 12/19/20 11:00 12/19/20 11:00 12/19/20 11:00 12/19/20 11:00 Oxygen Flow Rate (L/min) 2 Oxygen Delivery Method Room Air Weight: 123 lb 0.287 oz Body Mass Index (BMI) 24.0 Intake and Output for Last 24 Hours 12/17/20 12/18/20 12/19/20 23:59 23:59 23:59 Intake Total 3110 / 3110 Output Total 1950 / 1950 Balance 1160 / 1160 Laboratory Results 12/19/20 04:27: WBC 7.7, RBC 4.12 L, Hgb 12.4, Hct 36.8 L, MCV 89.3, MCH 30.1, MCHC 33.7, RDW Std Deviation 43.9, RDW Coeff of [place] 13.2, Plt Count 270, MPV 10.2, Immature Gran % (Auto) 0.400, Neut % (Auto) 59.8, Lymph % (Auto) 30.3, [place] % (Auto) 5.7, Eos % (Auto) 3.2, Baso % (Auto) 0.6, Absolute Neuts (auto) 4.6, Absolute Lymphs (auto) 2.34, Nucleated RBC % 0 12/19/20 04:27: Sodium 138, Potassium 3.6, Chloride 108 H, Carbon Dioxide 24.0, Anion Gap 6, BUN 10, Creatinine 0.54 L, Estim Creat Clear Calc 85.55, Est GFR (MDRD) Af Amer 153, Est GFR (MDRD) Non-Af 126, BUN/Creatinine Ratio 18.7, Glucos e 87, Calcium 8.9, Triglycerides 108, Cholesterol 242 H, LDL Cholesterol 177 H, VLDL Cholesterol 22, HDL Cholesterol 43 12/19/20 04:27: Phosphorus 3.2, Magnesium 1.9 Current Medications Acetaminophen (Acetaminophen 325 Mg Tablet) 650 mg PO Q6H PRN PRN PRN Reason: Pain Score 1-10/Temp > 100.7 F Last Admin: 12/19/20 04:31 Dose: 650 mg Documented by: Aspirin (Aspirin 81 Mg Tab.Chew) 81 mg PO DAILY@0800 [facility] Last Admin: 12/19/20 10:36 Dose: 81 mg Documented by: Atorvastatin Calcium (Atorvastatin Calcium 40 Mg Tablet) 40 mg PO QHS [facility] Last Admin: 12/18/20 22:00 Dose: 40 mg Documented by: Atropine Sulfate (Atropine Sulfate 1 Mg/10 Ml Syringe) 0.5 mg IV UD PRN PRN Reason: HR <50 bpm Hydralazine HCl (Hydralazine 20 Mg/Ml Vial) 10 mg IV Q6H PRN PRN PRN Reason: for SBP>160 Last Admin: 12/18/20 13:08 Dose: 10 mg Documented by: Sodium Chloride () 250 mls @ 15 mls/hr IV .[id number] PRN PRN Reason: Saline Flush Sodium Chloride () 250 mls @ 15 mls/hr IV .[id number] PRN PRN Reason: Additional IVPB Infusion Lisinopril (Lisinopril 5 Mg Tablet) 5 mg PO DAILY [facility] Last Admin: 12/19/20 11:31 Dose: 5 mg Documented by: Melatonin (Melatonin 3 Mg Tablet) 3 mg PO QHS PRN PRN PRN Reason: INSOMNIA Last Admin: 12/18/20 22:00 Dose: 3 mg Documented by: Metoprolol Tartrate (Metoprolol Tartrate 25 Mg Tablet) 12.5 mg PO BID [facility] Last Admin: 12/19/20 10:34 Dose: 12.5 mg Documented by: Ondansetron HCl (Ondansetron 4 Mg/2 Ml Vial) 4 mg IV Q6H PRN PRN PRN Reason: NAUSEA/VOMITING Pantoprazole Sodium (Pantoprazole Sodium 40 Mg Tablet) 40 mg PO DAILY [facility] Last Admin: 12/19/20 10:36 Dose: Not Given Documented by: Sodium Chloride (0.9% Saline Lock 10 Ml Syringe) 10 - 40 ml IV UD PRN PRN Reason: SALINE FLUSH Last Admin: 12/18/20 13:08 Dose: 20 ml Documented by: Sodium Chloride (0.9% Normal Saline 500 Ml Iv.Soln.) 500 ml IV BOLUS PRN PRN Reason: VASO-VAGAL PROTOCOL Ticagrelor (Ticagrelor 90 Mg Tablet) 90 mg PO BID [facility] Last Admin: 12/19/20 10:36 Dose: 90 mg Documented by: Discharge Activity: May Not Drive - For 1 week until see his PCP Weight Bearing Status: Weight bearing as tolerated Call your doctor if you observe: Fever of 101 or Higher, Numbness or Tingling, Change in Color, Inability to urinate, Inability to have a bowel movement, Using more than one pad per hour, Shortness of breath, Dizziness, Fainting spells, Swelling in the ankles, Chest pain, Prolonged hiccoughing, Calf discomfort, Uncontrolled pain Home Medications: Medications to take at Discharge Omeprazole 40 mg PO DAILY 01/10/20 Aspirin [Aspirin, Baby] 81 mg PO DAILY@0800 #30 tab.chew 12/19/20 Atorvastatin Calcium [Lipitor] 40 mg PO QHS #30 tab 12/19/20 Lisinopril [Zestril] 5 mg PO DAILY #30 tab 12/19/20 Metoprolol Tartrate [Lopressor (beta shay)] 12.5 mg PO BID #60 tab 12/19/20 Nicotine [Nicoderm Cq] 21 mg TRANSDERM. DAILY #30 patch 12/19/20 Ticagrelor [Brilinta] 90 mg PO BID #60 tab 12/19/20 Following Prescriptions Were Given to Patient: Aspirin [Aspirin, Baby] 81 mg PO DAILY@0800 #30 tab.chew Transmission Status: Received by [facility] #30 Ticagrelor [Brilinta] 90 mg PO BID #60 tab Transmission Status: Received by [facility] #30 Atorvastatin Calcium [Lipitor] 40 mg PO QHS #30 tab Transmission Status: Received by [facility] #30 Metoprolol Tartrate [Lopressor (beta shay)] 12.5 mg PO BID #60 tab Transmission Status: Received by [facility] #30 Nicotine [Nicoderm Cq] 21 mg TRANSDERM. DAILY #30 patch Lisinopril [Zestril] 5 mg PO DAILY #30 tab Transmission Status: Received by [facility] #30 Primary Care Physician: Ellis Crandall MD [Primary Care Provider] - Please follow up with your Primary Care Physician in: In 1 to 2 weeks Please Follow Up With: Tc Lopez MD When: Allergies scheduled Medical Necessity - Tobacco Use Smoking Status: Current every day smoker Tobacco Use: Cigarettes Meaningful Use Info Meaningful Use Diagnoses (Choose all that apply): AMI - AMI/Post PCI/Angioplasty Aspirin given w/in 24hrs of arrival?: Yes ASA at discharge?: Yes Antiplatelet Therapy at Discharge:: Yes Statins at discharge?: Yes Zheng/ARB at discharge?: Yes Beta Shay at discharge?: Yes Done w/ Acute PR measure.: Yes Documented LVEF (%): 47 Inpatient E&M: [id number] Disch Hosp
--- NOTE | 2020-12-26 11:04 | PCI.CARDCATH ---
PCI Cardiac Cath Report PCI Report: This is an addendum of dictation of cath report; Patient Erica Pedroza 55-year-old female presented with symptoms of retrosternal chest pain, has STEMI/ST elevation in the inferior leads This is addendum of the cath report dictation Prior to PCI occluded proximal RCA?100%, with #0 Huong flow Post PCI following stent placement 0% stenosis, with HUONG-#3 flow Symptoms of chest pain resolved and resolution of ST elevation in the [employer]. Patient remained stable hemodynamically No complication in the [employer]. Torito Muñiz MD,FACC,[facility] gis software developer
== END 2020-12-19 13:00 | disposition home or self-care (01) | DRG 174 ==
LOC: ED 03:36 → ICU 04:08
PROVIDERS: Hospitalist; Admitting Provider Hospitalist; Emergency Provider Emergency Medicine; PCP Family Medicine; Referring Provider Internal Medicine Interventional Cardiology; Visit Provider Internal Medicine
DX: I21.19 ST elevation (STEMI) myocardial infarction involving other coronary artery of inferior wall (principal); I25.10 Atherosclerotic heart disease of native coronary artery without angina pectoris; I10 Essential (primary) hypertension; K21.9 Gastro-esophageal reflux disease without esophagitis; F60.3 Borderline personality disorder; F31.9 Bipolar disorder, unspecified; E78.5 Hyperlipidemia, unspecified; F17.210 Nicotine dependence, cigarettes, uncomplicated; Z79.82 Long term (current) use of aspirin; Z79.899 Other long term (current) drug therapy; Z82.49 Family history of ischemic heart disease and other diseases of the circulatory system
CPT/HCPCS: 71045; 80048; 80053; 80061; 83735; 83880; 84100; 84484; 85025; 85610; 85730; 92941; 93005; 93306; 93454; 97802; 99285; 99406; J7030; Q9967; A4216; C1725; C1769; C1874; C1887; C1894; C9606; J2405

== ENCOUNTER 2021-01-08 09:00 | Emergency (ER) | payer MEDICAID, SELFPAY ==
[2020-12-18 04:40] VITALS: BMI 24.0
[2021-01-08 09:01] VITALS: BP 170/93; PULSE 88; RESP 16; TEMP 35.9; O2SAT 100; BMI 24.2
--- NOTE | 2021-01-08 09:29 | ED.DCSUM_ITS ---
- ER Visit Summary Date of Service: 01/08/21 Chief Complaint: High blood pressure History of Present Illness: The patient is a [address] Lopez and Dr. Crandall. She reports that her blood pressure is typically 130?155/80. Today it was 172/99. States that she has a history of anxiety and has been very anxious since having a stent placed on December 18. She reports that her dad from a heart attack and that she feels that she is living on borrowed time. She was placed on Zoloft and has been on as needed Ativan in the past. She does report a history of anxiety and panic attacks. She reports that she has a burning pain on the left side of her chest since having the stent placed. This is worst when she lies on that side. She denies any exertional chest pain. She denies any shortness of breath. Physical Examination: Vitals: Stable. Afebrile. General: Well-nourished and well-developed. Head: Normocephalic atraumatic. Neck: Supple, no lymphadenopathy. No JVD. Nontender. Cardiovascular: Regular rate and rhythm. No murmurs. Respiratory: No respiratory distress. Clear to auscultation bilaterally. Mild tenderness palpation to the left upper chest that does reproduce the discomfort she is experiencing. Abdominal: Soft, nontender, nondistended, normal bowel sounds. No guarding, rebound, or peritoneal signs. Back: Nontender. Extremities: Nontender, no edema. Skin: Normal color, no rash. Neurologic: Alert and oriented ?3. Cranial nerves II through XII are intact. Normal strength and sensation. Psych: Normal affect. Emergency Department Course and Treatment: I had a prolonged discussion with the patient and explained the medications that she is on which include aspirin, Brilinta, metoprolol, statin, and lisinopril. She is on 5 mg of lisinopril a day. She reports that the nurse practitioner at her primary care physician's office wanted her to increase this to 10 mg a day, but she was worried with the other medications that she is on. Treatment Plan: Patient will be given a prescription for as needed Ativan while she waits for the Zoloft that she has been placed on to try to work. She is instructed to increase her lisinopril to 10 mg a day. She is reassured. Follow-up with her primary care physician in 1 week to have her blood pressure rechecked. Return to the emergency department for any worsening symptoms. Disposition: To home in improved and stable condition. Impression: 1. Hypertension. 2. Anxiety. This note was generated with [employer] dictation software. It may contain incorrect words, spelling, and punctuation that were not noted in review of the chart prior to signing ED Disposition - Plan for ED Patient: Instructions: ED Hypertension, Established Prescriptions: Lorazepam [Ativan] 1 mg PO TID PRN #10 tablet PRN Reason: Anxiety Referrals: Ellis Crandall MD [Primary Care Provider] - 1 Week
== END 2021-01-08 09:40 | disposition home or self-care (01) ==
LOC: ED 09:35
PROVIDERS: Emergency Provider Emergency Medicine; PCP Family Medicine
DX: I10 Essential (primary) hypertension (principal); F41.9 Anxiety disorder, unspecified; Z82.49 Family history of ischemic heart disease and other diseases of the circulatory system
CPT/HCPCS: 99282

== ENCOUNTER → 2021-01-18 12:51 | Outpatient (CLI) | payer MEDICAID, SELFPAY ==
[2020-12-18 04:40] VITALS: BMI 24.0
[2021-01-13 12:02] VITALS: BMI 24.4
--- NOTE | 2021-01-18 12:55 | CR.ITP_ITS ---
Diagnosis - General Information Admitting Diagnosis: STEMI, S/P PCI intervention w/coroanry stenting Personal Learning Style:: Audio/Visual, Written Barriers to Learning: No Barriers Stage of change r/t lifestyle modifications:: Action Gave educational material for:: Treating Heart Disease, Emotions & Heart Disease, Stress Management & Relaxation, Sleep Disorders & Heart Disease, How The Heart Works, What it means to have Heart Disease, How Coronary Artery Disease is Diagnosed, Heart Procedures, What Heart Medications Do, Risk Factors & Modifications, Living an Active Life, Nutrition - Education/Goals Individual Counseling: Initial Assessment: Nicotine/Smoking, Abnormal Cholesterol Levels, High Blood Pressure Cardiac Rehabilitation Goals: 1. Maintain the individual as the primary focus of care. 2. To improve the patient's quality of life. 3. Identification of cardiac risk factors and provide cardiac risk factor management. 4. Enhance the psychosocial status of the patient. 5. Reconditioning enough to allow the patient to resume customary activities. 6. Control symptoms of cardiac disease Personal Goals: Initial Assessment: Quit smoking (participate in smoking cessation, Improve management of stress and emotions, Improve energy level, Get back to work, or to resume activities faster, Improve knowledge of cardiac disease, Improve muscle strength and endurance, Improve diet and eating habits (eat healthier), Control risk factors (learn risk factor modification) Scale for measuring improvement of personal goals: Enter appropriate number in Comments. 2 = Unchanged. 3 = Slightly Better. 4 = Moderate Improvement. 5 = Met my Goal - Diagnosis & Disease Process Outcomes/Goals: Pt IDs own risk factors & lifestyle modifications by Session 10, Verbalizes symptoms of angina & response by session 3., Pt independently manages Plan/Interventions: Assist Pt to ID & engage in lifestyle modification to reduce CVD risk, Instruct on individual risk factors, Review symptoms of angina & emergency actions, Review secondary diagnosis & identify educational needs. - Safety Referral to Physical Therapy: No Referral to [facility] Case Management: No Fall Risk Assessed:: Yes Assistive Devices:: None Exercise - Initial Assessment - Visit Date of Eval: 01/18/21 Session #:: 0 - pre-cardiac rehab Mets: Pre-: >7 METS for 30 minutes by discharge - Physician Prescribed Exercise Modalities: Treadmill, Rower, Airdyne, NuStep Frequency: 3x/week for 12 weeks [36 sessions] Intensity: 60-80% of age predicted maximum heart rate reserve Target Heart Rate:: 107-141 Resting Blood Pressure: 136/84 EKG Type: Normal Sinus Rhythm - Outcomes & Goals Goals:: Verbalizes understanding of THR, RPE & goal METS by session 6, Documents in home exercise log/reports 30 min aerobic 5 day/wk by DC, Demonstrates accurate pulse taking by DC - Intervention & Plan Exercise Program Goals: Instruct on personal THR & RPE, Instruct on MET level & personal MET goal, Show patient to take own pulse /validate performance until accurate, Instruct on home exercise - Physical Activity Home Exercise Physical Activity - Home Exercise: Safe Exercise, Warm-up, Self-monitoring, Cool-Down, Home Exercise > 30 min Daily, Sitting Time <3 hours/daily - Outcomes & Goals Outcomes/Goals: Demonstrates correct Warm-up/exercise Cool-Down (S3) if = 2.5 METs, Verbalizes symptoms of exercise intolerance by Session 3 (S3), Demonstrate safe equipment use (S3) & follows exercise prescrition (6) - Intervention & Plan Plan/Intervention: Instruct warm-up & cool-down if exercising at > 2 METs, Instruct on symptoms of exercise intolerance & actions to take, Instruct & monitor on saf, Assess intial functional capacity & safety risk Nutrition - Initial Assessment - Program Goals Nutrition Program Goals: LDL <100 optimal. 100 - 129 Near optimal. 130 - 159 Borderline High. 160 - 189 High. Total Cholesterol <200 desirable. 200 - 239 Borderline High. >/= 240 High. HDL < 40 Low >/=60 High. Triglycerides <150 desirable. <199 optimal. VlDL 5 - 40. HgbA1C <7%. BMI <25 Patient has diagnosis of Hyperlipidemia (ICD E78)?: Yes - Visit Date of Assessment:: 01/18/21 Session #:: 0 - pre-cardiac rehab - Cholesterol/Lipids Triglycerides (mg/dL): 108 - 12/19/2020 Total Cholesterol (mg/dL): 150 LDL Cholesterol (mg/dL): 177 HDL Cholesterol (mg/dL): 43 Determine presence & major risk factors that modify LDL goal: Cigarette smoking, Hypertension or hypertensive medication, Age men > 45 years; women >/= 55 years Outcomes/Goals: Pt IDs own risk factors & lifestyle modifications by Session 10, Verbalizes symptoms of angina & response by session 3., Pt independently manages Intervention/Plan: Instruct on personal lipid levels & lipid goals/NCEP guidelines, Instruct on cholesterol Referral to dietitian:: Yes - Medical Nutrition Therapy (HTN-HLD and Low BMI) - Diabetes (Other Core Measures) Diabetes Type: Not Applicable - Weight Mgt (Other Care) Not Applicable: No Height: 5 ft 6 in Weight:: 123 lb BMI: 19.8 Diagnosis Overweight/Obesity BMI> 30% ICD-10 E66: No Diagnosis High BMI/Morbid Obesity BMI> 35% ICD-10 Z68: No Body Fat %:: 24 Intervention/Plan: Instruct on ideal BMI & set weight loss goal w/patient, Assist pt to ID & incorporate diet changes for weight loss by S9 - Healthy Eating Habits Will attend diet classes:: Yes Outcomes/Goals:: Consume diet rich in vegs,fruits,whole grain/high fiber,fish,lean meat, Limit sat/trans fats,cholesterol & added salts & sugars Intervention/Plan:: Assess current eating habits - Education Gave educational materials for:: Healthy eating Medical - Initial Assessment - Visit Date of Eval: 01/18/21 Session #:: 0 - pre-cardiac rehab - Medication Compliance Preventative Medication(s):: Aspirin, Ticagrelor/P2Y12 inhibitor, Statin/lipid, Beta iban H/O mental health issues: depression, anxiety, or addiction?: Yes Doesn?t believe in the benefits of treatment?: No Believes medications are unnecessary or harmful?: No Has a concern about medication side effects?: No Expresses concern over the cost of medications?: No Outcomes/Goals: Verbalizes medications,desired effect & common side effects @ DC, Pt self-reports following medication regimen, Keeps card in wallet w/medications listed by DC Interventions/plans: Instruct on medication effects & side effects, Review medication list w/patient every two weeks, Instruct importance of taking meds as ordered & assist problem solving - Tobacco Use Tobacco Use: Cigarettes How long ago did you quit using tobacco products?: Less than 6 months ago Do you use smokeless tobacco?: No Outcomes/Goals: Smoking cessation achieved or maintained by discharge, Identify aids/strategies for achieving smoking cessation by session 6 Interventions/plan: Instruct on effects of smoking & provide smoking cessation resource, Assist pt to set quit date & provide encouragement, Assist pt to develop strategies to achieve/maintain quit date, Assist pt w/nicotine replacement & medication for cessation success - Hypertension Hypertension Diagnosis:: Hypertension ICD-10 I10 Resting Blood Pressure:: 136/84 [place] [employer] Hypertension Guidelines: [place] [employer] Hypertension Guidelines. Normal BP Less than 120/80. Elevated BP 120/80. Hypertension Stage 1: BP 130-139/80-89. Hypertesnion Stage 2: BP 140 or higher/90 or higher. Hypertension Crisis: BP higher than 180/120 Outcomes/Goals: Able to verbalize/achieve optimal blood pressure <130/80, Incorporates diet changes & exercise for blood pressure control by DC Interventions/plan: Instruct on optimal blood pressure, hypertension & medications, Instruct on effects of sodium, alcohol, stress, exercise &hypertension - Tobacco Cessation Referral Smoking Cessation Referral:: Yes Individual Education/Counseling:: Yes Education Schedule Given:: Yes Psychosocial - Initial Assess - VIsit Date of Eval: 01/18/21 Session #:: 0 - pre-cardiac rehab Not Applicable: No History of previous Mental disease:: Yes - Borderline personality Disorder, Bipolar affective disorder History of Emotional Disorders: H/O Mental disease Self-reported stressors: Medical/Health - Target Goals Target Goals: Assess presence or absence of depression. Using a valid screening tool, maximizes coping skills. Positive support system - Psychosocial Test Tool Used:: Gina Dugan QOL Cardiac, PHQ-9 Questionnaire phq-9 Severity: Severity. 1-4 Minimal Depression. 5-9 Mild Depression. 10-14 Moderate Depression. 15-19 Moderately Sever Depression. 20-27 Severe Depression. Rule: - Referral to Behavioral Health PS - Interventions: Yes Attend Stress Management Classes, No Referral to Behavioral Health if PHQ-9 score >9:, No Referral to [facility], No Referral to Physician if PHQ-9 if score is 5-9: - Outcomes/Goals: See list Psychosocial Outcomes/Goals:: ID's personal stressors & 2 strategies to manage stress by discharge - Intervention/Plan: See List Interventions/Plan:: Assess stressors,coping strategies & signs of derpression on admission, Instruct/assist pt to develop coping & personal stress Mgt strategies, Instruct patient to recognize signs & symptoms of depression, Instruct patient to recog Patient Health Questionnaire Initial Assessment 1. Little interest or pleasure in doing things: Not at all 2. Feeling down, depressed, or hopeless: Nearly every day 3. Trouble falling or staying asleep, or sleeping too much: Several days 4. Feeling tired or having little energy: Nearly every day 5. Poor appetite or overeating: Not at all 6. Feeling bad about yourself -- or that you are a failure or have let yourself or your family down: More than half the days 7. Trouble concentrating on things, such as reading the newspaper or watching television: Several days 8. Moving or speaking so slowly that other people could have noticed. Or the opposite - being so fidgety or restless that you have been moving around a lot more than usual: Not at all 9. Thoughts that you would be better off , or of hurting yourself in some way: Not at all How difficult have these problems made it for you to do your work, take care of things at home, or get along with other people?: Somewhat difficult Total Score: 10 LISSET-Q SV Test - Statements CAD is a disease of the arteries in the heart: False Examples of risk factors for heart disease: True Angina is chest pain or discomfort: True The benefits of resistance training include: I Don't Know Eating more meat and dairy products: False Anti-platelet medications such as aspirin are important: True The only effective way to manage stress: False An exercise warm-up slowly increases heart rate: True Prepared, processed foods usually have high sodium: True Depression is common after a heart attack: True The statin medications lower cholesterol: True To control blood pressure, lower the amount of sodium: True If someone gets chest discomfort during walking: False Transfats are partially hydrogenated vegetable oils: True Sleep apnea that is not treated increases the risk: I Don't Know To control cholesterol, one should become a vegetarian: True Someone knows if he/she is exercising at the right level: I Don't Know Diabetes cannot be prevented with exercise & health eating: I Don't Know Stress is a large risk for heart attack: True A diet that can help lower blood pressure is rich in: True - Total Score Total Correct Responses: 15 Self-Efficacy Initial Assessment We would like to know how confident you are in doing certain activities. Please select your confidence level for:: Select your confidence level for the following using the scale 1-10 where 1 is not at all confident and 10 is totally confident. Your score is the average of all 6 responses. Fatigue: How confident are you that you can keep the fatigue caused by your disease from interfering with the things you want to do? Select Number: 2 Physical Discomfort or Pain: How confident are you that you can keep the physical discomfort or pain of your disease from interfering with the things you want to do? Select Number: 2 Emotional Distress: How confident are you that you can keep the emotional distress caused by your disease from interfering with the things you want to do? Select Number: 2 Other Symptoms or Health Problems: How confident are you that you can keep other symptoms or health problems from interfering with the things you want to do? Select Number: 2 Different Tasks and Activities: How confident are you that you can do the different tasks and activities needed to manage your health condition so as to reduce your need to see a doctor? Select Number: 3 Medication: How confident are you that you can do things other than just taking medication to reduce how much your illness affects your everyday life? Select Number: 3 Total Score:: 2 Nutrition Survey - Nutrition Survey Instructions Scoring Instructions: Scoring is as follows: Yes = 1 points. No = 0 point. Patient score that is >/=12 is considered to be at potential nutritional risk and could benefit from a referral to a registered dietitian. - Nutrition Survey Initial Have you lost >10 lbs over the past 2 months without trying?: No Are you following a special diet at home for diabetes, low fat, or low salt?: No Are you interested in meeting with a dietitian for help understanding your diet?: Yes Do you eat less than 3 meals a day?: No Do you eat fatty meats (lucas, sausage, ribs, etc), fried foods, desserts, large amounts of salad dressings, margarine, butter, or cheese most days?: No Do you have food allergies? [Enter types in comment field]: No Do you eat in restaurants more than 3 times a week?: No Do you season food with salt, seasoning salt, or garlic salt?: No Do you used canned, boxed, frozen meals, or soups, seasoning packets?: No Total Score:: 1
--- NOTE | 2021-01-18 12:56 | CR.HP_ITS ---
CR - History & Physical - General Arrival date:: 01/18/21 Arrival time:: 13:00 Date of Referral:: 12/19/20 Date of CR Evaluation:: 01/18/21 - Delayed due to possible COVID exposure, patient has tested negative and self-quarantined 14 days. Referring Physician: Dr. Ismael Jackson Primary Diagnosis: PCI w/coronary stents - History of Present Cardiac Event Onset Date: Enter Onset Date of cardiac illnesses in Comment field below Acute Myocardial Infarction within 12 months:: Yes - AMI STEMI 12/18/2020 PTCA or coronary stenting:: Yes - 12/18/2020 Type of Symptoms:: For about 2 weeks would have chest discomfort before bedtime, the night of heart attack entire arm chest neck jaw all hurt and broke out in a warm sweat. Interventions with present event:: emergent heart cath procedure/coronary stenting - Medications Home Medications: Ambulatory Orders Medication Instructions Recorded Omeprazole 40 mg PO DAILY 01/10/20 Aspirin [Aspirin, Baby] 81 mg PO DAILY@0800 #30 tab.chew 12/19/20 Atorvastatin Calcium [Lipitor] 40 mg PO QHS #30 tab 12/19/20 Metoprolol Tartrate [Lopressor 12.5 mg PO BID #60 tab 12/19/20 (beta iban)] Ticagrelor [Brilinta] 90 mg PO BID #60 tab 12/19/20 Lorazepam [Ativan] 1 mg PO TID PRN #10 tab 01/08/21 ascorbate calcium (vitamin C) 500 500 mg PO DAILY 01/13/21 mg tablet lisinopril 10 mg tablet 10 mg PO DAILY #60 tab 01/13/21 sertraline 25 mg tablet 25 mg PO DAILY tab 01/13/21 - Allergies Allergies/Adverse Reactions: Allergies morphine Allergy (Verified 01/13/21 12:02) Hives citalopram [From Celexa] Adverse Reaction (Verified 01/13/21 12:02) Other venlafaxine [From Effexor] Adverse Reaction (Verified 01/13/21 12:02) Other - Sleep Disorder Evaluation Hx of Sleep Apnea: No Do you snore loudly (louder than talking or can be heard through closed doors)?: No - can fall asleep standig up; Dr. Crandall wanted her tested for narcolepsy but was never tested. Do you often feel tired/ fatigued/ sleepy during daytime?: No Has anyone observed you stop breathing during sleep?: No History of Hypertension (for STOP score): Yes STOP Results: Negative Advanced Directives - Advanced Directives Power of Stock Analyst: No Living Will: No Advance Directives Information Provided: Yes Advance Directives on File: No DNR Order?:: No - MOLST See MOLST form: No Past Medical History - Covid-19 Screening Fever: No Unexplained muscle aches: No Current respiratory symptoms: No Upper respiratory infections symptoms: No Gastro-intestinal symptoms: No Qoq-Irnd-Qhrvna symptoms: No Has tested positive for COVID-19 in last 30 days: No Date of testin12/26/20 - negative Had contact w/person w/symptoms or Covid-19 (+) last 14 days: No Has High Risk Exposures ID'd by Health dept/Inf Control team: No 65 years or older:: No Lives in Assisted Living facility:: No Has a chronic lung disease or moderate to severe asthma:: No Has a serious heart condition:: Yes Immunocompromised:: No Diabetic:: No Has chronic kidney disease undergoing dialysis:: No Has liver disease:: No - Past Medical Illness Medical History: Past Medical History (Last Reviewed 01/13/21 @ 13:[address] Tc Lopez MD) Atherosclerotic heart disease of [place] coronary artery without angina pectoris (Chronic) I25.[address] elevation myocardial infarction (STEMI) (Resolved) Onset Date: 12/18/20 I25.2 Old inferior wall myocardial infarction (Chronic) Onset Date: 12/18/20 I25.2 Ischemic cardiomyopathy (Chronic) I25.5 Essential (primary) hypertension (Chronic) I10 Nicotine dependence (Chronic) F17.200 Bipolar affective disorder F31.9 Borderline personality disorder F60.3 GERD (gastroesophageal reflux disease) K21.9 - Past Surgical History Surgical History: Past Surgical History (Last Reviewed 01/13/21 @ 13:[address] Tc Lopez MD) History of coronary artery stent placement (Chronic) Onset Date: 12/18/20 Z95.5 [id number] RCA w/ 3.5 x 22 mm Resolute Stent 12/18/20 Surgical History: - - section - Family History Summary Family History: Family History (Last Reviewed 01/13/21 @ 13:[address] Tc Lopez MD) Father CAD (coronary artery disease) Myocardial infarction Social History - Smoking History Smoking Status: Light Smoker (<10/day) - down to less tahn 5 per day. 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 [employer] - Hobbies, Recreation, Social Activities Hobbies: Sports - Tennis and frisbee with kids., Walking - dog park, taking kids to the park., Other Recreational Activities: I am able to engage in most, but not all activities Social Environment - Status Marital Status: - Current Living Arrangements Living Environment:: Family - Children How many children do you have?: 2 - lost one child in 2014 Do any of your children live nearby?: Yes - Safety Do you feel safe in your surroundings?: Yes - Assistance Do you need any assistance at home?: no Review of Systems - Review of Systems Hints: Right click = Denies ([place]). Left click = Reports ([place]) Review of Present Symptoms: Reports: Shortness of Breath with Exertion - if I over do it., Fatigue - takes medicine around 6 pm, by 8:00 PM find myself in bed., Appetite - Normal, Appetite - Special Diet - no sodium, no fat meats., Sleep - Normal, - - some tension/stress muscluar in left arm shoulder - similar to a tired muscle. Afraid I'm over thinking things -worried it is happening agian.. Denies: Dizziness/Lightheadedness, Heart Arrhythmia/Irregularities - Pain Is Patient Pain Free?: Yes Pain Location: neck - sore stiff muscle in the neck shoulder - like slept the wrong way. Risk Factor Assessment - Chief Complaint Chief Complaint: 55 yr old female who recently experienced a STEMI even in NOV presents to cardiac rehab under the care of Dr. Jackson - Vital Signs Temperature: 97.3 F Respiratory Rate: 16 Pulse Ox: 94 Blood Pressure: 136/84 - Pulse Pulse Rate: 78 Pulse Rhythm: Regular - Hypertension Blood Pressure Sitting - Left Arm: 136/84 - Stress Stress: Recent - Blood Cholesterol/Lipids Total Cholesterol (mg/dL) Goal = less than 200 mg/dL: 150 - 12/19/2020 HDL Cholesterol (mg/dL) Goal = less than 40 mg/dL: 43 LDL Cholesterol (mg/dL) Goal = less than 70 mg/dL: 177 Triglycerides (mg/dL) Goal = less than 150 mg/dL: 108 - Diabetes Nutrition Referral for Diabetes: No - Obesity Height: 5 ft 6 in Weight:: 123 lb Weight in Pounds: 123.0 lbs Weight Source: Stated by Patient Body Mass Index (BMI): 19.8 Nutritional Referral for Obesity: No - Physical Inactivity Physical Inactivity: None - Risk Stratification Risk Guidelines: Lowest Risk: Risk Factor for Dyslipidemia, Risk Factor for Diabetes, Risk Factor for Obesity, Risk Factor for Sedentary Lifestyle, Risk Factor for Depression, Moderate Risk: Risk Factor for Hypertension, Highest Risk: Risk Factor for Smoking - For Smoking Smoking Risk Guidelines: Smoking Low Risk: None or quit greater than 6 months ago. Smoking Moderate Risk: Smoker or quit 6 months or less ago. Smoking High Risk: Smoker - For Dyslipidemia Dyslipidemia Risk Guidelines: Low Risk: Moderate Risk: High Risk: 15-25% fat 25.1-29% fat >/= 30% fat. <7% sat fat 7-9% sat fat >9% sat fat. <150 mg chol 150-299 mg chol >/= 300 mg chol. LDL <100 LDL 100-129 LDL >/= 130. Chol/HDL ratio <5.0 Chol/HDL ratio 5.0-6.0 Chol/HDL ratio >6.0. Triglycerides <100 Triglycerides 100-149 Triglycerides >/= 150 - For Diabetes Mellitus Diabetes Risk Guidelines: Diabetes Low Risk: HgA1c <6.5% and/or FBG <120. Diabetes Moderate Risk: HgA1c 6.6-7.9% and/or FBG 120-180. Diabetes High Risk: HgA1c >/= 8% and/or FBG >180 - For Obesity/Overweight Obesity/Overweight Risk Guidelines: Obesity Low Risk: BMI <25.0. Obesity Moderate Risk: BMI 25-29.9. Obesity High Risk: BMI >/= 30.0 - For Hypertension Hypertension Risk Guidelines: Hypertension Low Risk: Systolic <120 and Diastolic <80. Hypertension Moderate Risk: Systolic 120-139 and Diastolic 80-89. Hypertension High Risk: Systolic >/= 140 and Diastolic >/= 90 - For Sedentary Lifestyle Sedentary Lifestyle Risk Guidelines: Sedentary Lifestyle Low Risk: >/= 1,500 kcal/week. Sedentary Lifestyle Moderate Risk: 700-1,499 kcal/week. Sedentary Lifestyle High Risk: < 700 kcal/week - For Depression Depression Risk Guidelines: Depression Low Risk: Not clinically depressed. Depression Moderate Risk: Mildly depressed. Depression High Risk: Clinically depressed - Family History Family History: Family History (Last Reviewed 01/13/21 @ 13:[address] Tc Lopez MD) Father CAD (coronary artery disease) Myocardial infarction Motivation - Motivation to Participate On a scale of 1 to 10, how prepared are you to commit to attending program?: 10 What do you see as barriers to successfully being able to complete the program?: none What do you see as the benefits of succesfully completing the program? In other words, what do you hope to get out of participating in the program?: stronger, learn how to eat right, better health, learn to exercise correctl Are there issues you are dealing with that will interfere with completing the program?: no Do you have a spouse or signficant other, family or friends who will help support you to complete the program?: yes
[2021-01-18 13:15] VITALS: BP 136/84; BMI 19.8
[2021-01-18 13:28] VITALS: BP 136/84; PULSE 78; RESP 16; TEMP 36.3; O2SAT 94; BMI 19.8
== END ==
PROVIDERS: PCP Family Medicine; Referring Provider Internal Medicine Cardiovascular Disease; Visit Provider Internal Medicine Cardiovascular Disease
DX: K21.9 Gastro-esophageal reflux disease without esophagitis (principal); I10 Essential (primary) hypertension

== ENCOUNTER 2021-01-23 21:53 | Emergency (ER) | payer MEDICAID, SELFPAY ==
[2021-01-18 13:15] VITALS: BMI 19.8
[2021-01-18 13:28] VITALS: BMI 19.8
[2021-01-23 21:53] VITALS: BP 193/104; PULSE 69; RESP 18; TEMP 35.8; O2SAT 100; BMI 24.4
[2021-01-23 22:00] VITALS: BP 156/98; PULSE 73; RESP 18; O2SAT 100
--- NOTE | 2021-01-23 22:37 | EKG12_ITS ---
Test Reason : CP Blood Pressure : / mmHG Vent. Rate : 068 BPM Atrial Rate : 068 BPM P-R Int : 164 ms QRS Dur : 094 ms QT Int : 406 ms P-R-T Axes : 071 067 042 degrees QTc Int : 431 ms Normal sinus rhythm Normal ECG Confirmed by GLEN KING, JOE ([id number]), avid editor FILI CASTILLO ([id number]) on 01/24/2021 10:52:39 AM Referred By: ALICE Confirmed By:JOE CARROLL MD
--- NOTE | 2021-01-23 22:38 | ED.DCSUM_ITS ---
History of Present Illness Chief Complaint: Chest Pain Informant: Patient Onset: Days Context: Gradual Onset Timing: Waxes and wanes Current Severity: Mild Maximum Severity: Moderate Narrative: She presents secondary to concerns for chest pain. Patient was admitted December 18 with a STEMI and has 1 stent. Patient states prior to her STEMI she had had some chest pain and burning pain in her back. Today she has had increased burning in her back again similar to prior to her CO. Patient states she did go to cardiac rehab today and actually felt slightly better following this, however pain worsened after a couple hours. She does have some shortness of breath with exertion that she states has been present since her heart attack. - Past Medical History (1) Essential (primary) hypertension Status: Chronic (2) History of coronary artery stent placement Status: Chronic Comment: [id number] RCA w/ 3.5 x 22 mm Resolute Stent 12/18/20 (3) Ischemic cardiomyopathy Status: Chronic (4) Old inferior wall myocardial infarction Status: Chronic (5) History of ST elevation myocardial infarction (STEMI) Status: Resolved Past Medical History - Allergies and Home Meds Allergies/Adverse Reactions: Allergies morphine Allergy (Verified 01/23/21 21:55) Hives citalopram [From Celexa] Adverse Reaction (Verified 01/23/21 21:55) Other venlafaxine [From Effexor] Adverse Reaction (Verified 01/23/21 21:55) Other Prior records reviewed: Yes Surgical History: - - section Smoking Status: Current every day smoker - Family History Maternal Family History: Family History (Last Reviewed 01/13/21 @ 13:[address] Tc Lopez MD) Father CAD (coronary artery disease) Myocardial infarction Family History: Reports: Heart Disease - His father had multiple heart attacks Review of Systems General: Denies: Chills, Fever Eyes: Denies: Visual changes - bilaterally ENT: Denies: Bilateral ear pain Cardiovascular: Reports: Chest pain Respiratory: Reports: Dyspnea. Denies: Cough Gastrointestinal: Denies: Abdominal pain, Nausea, Vomiting, Diarrhea Genitourinary: Denies: Dysuria Musculoskeletal: Denies: Swelling, Extremity Pain Skin: Denies: Rash Neurological: Denies: Headache Hematologic: Denies: Easy bruising, Easy bleeding Allergy: Denies: Uticaria Physical Exam Vital Signs/Narrative: Vital Signs Temp Pulse Resp BP Pulse Ox 01/23/21 22:00 73 18 156/98 H 100 01/23/21 21:53 96.5 F L 69 18 193/104 H 100 Inital Vital Signs reviewed: Yes General: Well nourished, Well developed Head: Normocephalic ENT: Moist mucous membranes Neck: Supple Cardiovascular: Regular rate, Regular rhythm Respiratory: No distress, CTA bilaterally Abdomen: Soft, Nontender Extremities: Nontender, No edema Skin: Normal color, No rash Neurological: Alert, Oriented x3 Psychological: - - Anxious Diagnostic/Tx/Re-eval Chest X-Ray - ED: 1 View, Read by ED Physician, Chronic Changes, - - Hyperinflation Impressions Chest X-Ray 01/23/21 22:40 IMPRESSION: Normal x-ray examination of the chest. Electronically Signed: Raj Fagan DO at 22:57 EST Tel , Service support , 01/23/21 22:40 Chest 1 View (Portable) [RAD] Stat Laboratory Results 01/23/21 01/23/21 22:06 22:06 WBC 8.0 RBC 4.40 Hgb 12.8 Hct 40.4 MCV 91.8 MCH 29.1 MCHC 31.7 L RDW Std Deviation 45.2 H RDW Coeff of Dona 13.3 Plt Count 277 MPV 10.5 Immature Gran % (Auto) 0.100 Neut % (Auto) 44.7 L Lymph % (Auto) 43.0 H [place] % (Auto) 6.9 Eos % (Auto) 4.3 Baso % (Auto) 1.0 Absolute Neuts (auto) 3.6 Absolute Lymphs (auto) 3.43 Nucleated RBC % 0 Sodium 141 Potassium 3.5 Chloride 106 Carbon Dioxide 26.0 Anion Gap 9 BUN 13 Creatinine 0.73 Estim Creat Clear Calc 63.28 Est GFR (MDRD) Af Amer 107 Est GFR (MDRD) Non-Af 89 BUN/Creatinine Ratio 17.9 Glucose 79 Calcium 9.3 Troponin I < 0.015 - EKG Initial EKG Interpretation: Sinus Rhythm - Sinus at 68 with no acute ischemia. - Medical Decision Making Patient had taken 1 baby aspirin today. She was given 3 additional baby aspirin in the emergency room. EKG, chest x-ray, blood work are unremarkable at this time. Patient story is concerning as this is similar to pain to what she experienced prior to her STEMI. She will be given a small dose of fentanyl at this time to help with pain and admitted for cycling of cardiac enzymes. Addendum: When the hospitalist were to see the patient he states the patient was very upset and crying see that she wanted to go home. I went back to the room to talk with the patient. She is very adamant that she just wants to go home. She does not want to be in the hospital anymore get any further treatment. We discussed the risks and concerns especially with her having a recent CO. At this time she states she does not care and just wants to go home. She was offered admission, pain medication, anxiety medication, etc. to make her more comfortable and she is still declining admission. At this time she will sign out AMA. ED Disposition - Plan for ED Patient: Disposition: Home or Assisted Living Diagnosis: Chest pain Instructions: ED Chest Pain, Uncertain Cause Referrals: Ismael Jackson MD [STAFF PHYSICIAN] - As soon as possible
--- NOTE | 2021-01-23 22:40 | RAD_ITS ---
STUDY: X-RAY CHEST REASON FOR EXAM: Female, 55 years old. chest pain TECHNIQUE: Single AP portable view of the chest. COMPARISON: 12/18/2020 FINDINGS: The lungs are clear and expanded. There is no demonstrated pleural abnormality. Normal size heart. Normal mediastinum and kirsten. Normal visualized pulmonary arteries. Normal visualized aortic arch and descending thoracic aorta. Normal visualized thoracic spine. Normal visualized ribs, clavicles, and shoulders. There is no demonstrated abnormality of the visualized soft tissue structures of the upper abdomen. RAD/Chest 1 View (Portable) IMPRESSION: Normal x-ray examination of the chest. Electronically Signed: Raj Fagan DO at 22:57 EST Tel , Service support ,
[2021-01-23 22:43] LABS: Absolute Lymphocyte Count 3.43 X10^3/uL (0.83-4.51); Absolute Neutrophil Count 3.6 X10^3/uL (2.0-7.7); Basophil# 0.08 X10^3/uL; Eosinophil# 0.34 X10^3/uL; Eosinophils% 4.3 % (0-5); Hematocrit 40.4 % (37-47); Hemoglobin 12.8 g/dL (12.0-15.0); Lymphocyte # 3.43 X10^3/ul (4.0); Mean Corp Hgb Conc 31.7 g/dL (32-36); Mean Corpuscular Hgb 29.1 pg (27.0-32.0); Mean Corpuscular Volume 91.8 fL (81-99); Mean Platelet Vol. 10.5 fl (6.2-12.0); Monocyte# 0.55 X10^3/uL; Monocyte% 6.9 % (0-10); NRBC Flagged by Analyzer 0 % (0-5); Neutrophil # 3.57 X10^3/uL (2.7-7.7); Neutrophil % 44.7 % (47-70); Platelet Count 277 K/mm3 (150-450); RBC Distribution Width CV 13.3 % (11.6-14.6); RBC Distribution Width SD 45.2 fl (35.1-43.9)
[2021-01-23] MEDS: Aspirin 81 MG TAB.CHEW 243 MG PO (22:43)
[2021-01-23 22:45] VITALS: O2SAT 98
[2021-01-23 22:56] LABS: Anion Gap 9 (5-15); BUN 13 mg/dL (7-18); BUN/Creat Ratio 17.9 RATIO (10-20); Calcium,Total 9.3 mg/dL (8.5-10.1); Chloride 106 mmol/L (98-107); Creatinine, Serum 0.73 mg/dL (0.55-1.02); EST Glomerular Filtration Rate 89 mL/min (>60); Est Glom Filt Rate - Afr Amer 107 mL/min (>60); Estimated Creatinine Clearance 63.28 ml/min; Glucose 79 mg/dL (74-106); Potassium 3.5 mmol/L (3.5-5.1); Sodium Level 141 mmol/L (136-145)
[2021-01-23 23:00] VITALS: BP 137/91; PULSE 66; RESP 18; O2SAT 98
[2021-01-24] VITALS: BP 136/99; PULSE 69; RESP 18; O2SAT 98
[2021-01-24] MEDS: fentaNYL 100 MCG/2 ML Ampul 25 MCG IV (00:16)
[2021-01-24 01:00] VITALS: BP 142/90; PULSE 60; RESP 17; O2SAT 98
[2021-01-24 01:21] VITALS: BP 142/90; PULSE 60; RESP 17; TEMP 36.1; O2SAT 97
[2021-01-24 02:00] VITALS: BP 163/90; PULSE 70; RESP 17; O2SAT 98
--- NOTE | 2021-01-24 02:30 | PCM.PN.BLA ---
Progress Note Was called to see patient and observe patient in the hospital. However upon entering patient's room patient was insistent that she will go home. Discussed with patient that it may be prudent for her to stay. Discussed emergent department doctor who went in to talk to patient. However by me department doctor patient does not want to stay at the hospital. STROKE Vital Signs/Narrative: Vital Signs Temp Pulse Resp BP Pulse Ox 01/24/21 02:00 70 17 163/90 H 98 01/24/21 01:21 97 F L 60 17 142/90 H 97 01/24/21 01:00 60 17 142/90 H 98 01/24/21 00:00 69 18 136/99 H 98 01/23/21 23:00 66 18 137/91 H 98 01/23/21 22:45 98
== END 2021-01-24 02:28 | disposition home or self-care (01) ==
LOC: ED 23:59 → PCU 01-24 02:16
PROVIDERS: Emergency Provider Emergency Medicine; PCP Family Medicine
DX: R07.9 Chest pain, unspecified (principal); I10 Essential (primary) hypertension; I25.5 Ischemic cardiomyopathy; I25.2 Old myocardial infarction; Z95.5 Presence of coronary angioplasty implant and graft; Z82.49 Family history of ischemic heart disease and other diseases of the circulatory system; F17.200 Nicotine dependence, unspecified, uncomplicated
CPT/HCPCS: 71045; 80048; 84484; 85025; 93005; 93798; 96374; 99285; A4216

== ENCOUNTER 2021-01-24 16:53 | Observation (INO) | payer MEDICAID, SELFPAY ==
[2021-01-18 13:15] VITALS: BMI 19.8
[2021-01-23 21:53] VITALS: BMI 24.4
[2021-01-24] VITALS (10 sets, daily range): BP systolic 123–154; BP diastolic 76–86; PULSE 67–85; RESP 16–18; TEMP 35.9–36.7; O2SAT 97–99; BMI 24.4; BMI 23.5
--- NOTE | 2021-01-24 17:10 | EKG12_ITS ---
Test Reason : ADM EKG Blood Pressure : / mmHG Vent. Rate : 069 BPM Atrial Rate : 069 BPM P-R Int : 148 ms QRS Dur : 096 ms QT Int : 406 ms P-R-T Axes : 066 050 030 degrees QTc Int : 435 ms Normal sinus rhythm Normal ECG When compared with ECG of 23-JAN-2021 22:00, No significant change was found Confirmed by JORJE KING, LEONIDES ([id number]), editorial clerk MITA KAISER ([id number]) on 01/26/2021 1:21:01 PM Referred By: SOO Confirmed By:LEONIDES RECINOS MD
--- NOTE | 2021-01-24 17:13 | ED.DCSUM_ITS ---
History of Present Illness Chief Complaint: Chest Pain Informant: Patient Onset: Days - 3 Activity at onset: Unknown Timing: Continuous Quality: Burning - inside chest and in mid-upper back, Tightness - chest Location: Substernal Current Severity: Severe Maximum Severity: Severe Worsened By: Exertion. Not Worsened By: Movement of Arm, Movement of Torso, Eating, Breathing, Coughing Relieved By: Nothing Associated Symptoms: Dyspnea - with exertion. Negative for: Nausea, Vomiting, Diaphoresis, Cough, Fever, Lightheadedness, Palpitations Narrative: Patient presenting with chest discomfort, she was seen here yesterday for similar symptoms saying that it continues to worsen especially over the last 2 or 3 days. She had a stent placed when she had a STEMI in November, she has had dyspnea with light exertion since then, and worsening burning in her chest that initially was episodic and intermittent, but over the last 3 days has become more constant and severe. She was slated to be admitted yesterday but ended up changing her mind and leaving AGAINST MEDICAL ADVICE. She states she returned because the symptoms are getting worse. These include more persistent numbness in her mid back and her left upper extremity although she admits her left arm was numb prior to her heart attack. Some of the symptoms she had when she had her heart attack in November and some of them she did not. She denies any other new symptoms. Patient is on clopidogrel and aspirin and has been compliant with her medications, has not run out of any of them or forgotten to take any doses. She denies using any illicit substances since her stent was placed. She has followed up with her outside machinist as an outpatient since the stent as well. Prior Similar Symptoms: With Prior [place] - some of the sx - Past Medical History (1) Atherosclerotic heart disease of [place] coronary artery without angina pectoris Status: Chronic (2) Essential (primary) hypertension Status: Chronic (3) Ischemic cardiomyopathy Status: Chronic Past Medical History - Allergies and Home Meds Allergies/Adverse Reactions: Allergies morphine Allergy (Verified 01/24/21 16:54) Hives citalopram [From Celexa] Adverse Reaction (Verified 01/24/21 16:54) Other venlafaxine [From Effexor] Adverse Reaction (Verified 01/24/21 16:54) Other Primary Care Physician: Ellis Crandall MD [Primary Care Provider] - Surgical History: - - section Smoking Status: Former smoker - Family History Maternal Family History: Family History (Last Reviewed 01/13/21 @ 13:[address] Tc Lopez MD) Father CAD (coronary artery disease) Myocardial infarction Family History: Reports: Heart Disease - His father had multiple heart attacks Review of Systems General: Reports: Malaise. Denies: Chills, Fever, Sweats Eyes: Denies: Visual changes - bilaterally, Diplopia ENT: Denies: Bilateral ear pain, Rhinorrhea, Sore throat Cardiovascular: Reports: Chest pain. Denies: Palpitations Respiratory: Reports: Dyspnea on exertion. Denies: Dyspnea, Cough, Orthopnea Gastrointestinal: Denies: Abdominal pain, Nausea, Vomiting, Diarrhea, Melena, Hematochezia Genitourinary: Denies: Dysuria, Hematuria, Frequency Musculoskeletal: Reports: Back pain. Denies: Myalgias, Swelling, Extremity Pain Skin: Denies: Rash, Wounds Neurological: Reports: Numbness. Denies: Headache, Weakness Physical Exam Vital Signs/Narrative: Vital Signs Temp Pulse Resp BP Pulse Ox 01/24/21 16:54 96.7 F L 75 18 151/84 H 99 Inital Vital Signs reviewed: Yes General: Well nourished, Well developed, No Acute Distress Head: Normocephalic, Atraumatic Eyes: Perrl, EOMI ENT: Moist mucous membranes, No rhinorrhea Neck: Supple, Nontender, No lymphadenopathy, No JVD Cardiovascular: Regular rate, Regular rhythm, No murmurs. Negative for: Tachycardia Respiratory: No distress, CTA bilaterally, Chest nontender Abdomen: Soft, Nontender, Nondistended, Normal bowel sounds Back: Nontender, Normal Inspection Extremities: Nontender, No edema. Negative for: Calf Tenderness Skin: Normal color, No rash, No Trauma Neurological: Alert, Oriented x3, Cranial nerves II-XII grossly intact, Normal Strength, Normal Sensation Psychological: Normal Mood, - - anxious Diagnostic/Tx/Re-eval Laboratory Tests 01/24/21 01/24/21 Range/Units 17:05 17:05 WBC 7.0 (4.4-11.0) K/mm3 RBC 4.67 (4.2-5.4) M/mm3 Hgb 14.1 (12.0-15.0) g/dL Hct 42.5 (37-47) % MCV 91.0 (81-99) fL MCH 30.2 (27.0-32.0) pg MCHC 33.2 (32-36) g/dL RDW Std Deviation 44.8 H (35.1-43.9) fl RDW Coeff of Dona 13.3 (11.6-14.6) % Plt Count 292 (150-450) K/mm3 MPV 10.0 (6.2-12.0) fl Immature Gran % (Auto) 0.100 (0.0-0.9) % Neut % (Auto) 51.3 (47-70) % Lymph % (Auto) 36.6 (19-41) % [place] % (Auto) 6.4 (0-10) % Eos % (Auto) 4.7 (0-5) % Baso % (Auto) 0.9 (0-1) % Absolute Neuts (auto) 3.6 (2.0-7.7) X10^3/uL Absolute Lymphs (auto) 2.56 (0.83-4.51) X10^3/uL Nucleated RBC % 0 (0-5) % Sodium 139 (136-145) mmol/L Potassium 3.8 (3.5-5.1) mmol/L Chloride 108 H (98-107) mmol/L Carbon Dioxide 26.0 (21.0-32.0) mmol/L Anion Gap 5 (5-15) BUN 11 (7-18) mg/dL Creatinine 0.73 (0.55-1.02) mg/dL Estim Creat Clear Calc 63.28 ml/min Est GFR (MDRD) Af Amer 107 (>60) mL/min Est GFR (MDRD) Non-Af 89 (>60) mL/min BUN/Creatinine Ratio 15.2 (10-20) RATIO Glucose 101 (74-106) mg/dL Calcium 9.1 (8.5-10.1) mg/dL Troponin I < 0.015 (<0.045) ng/mL - Rhythm Strip Rhythm Strip: Sinus Rhythm Rate: 78 Ectopy: PAC(s) - EKG Initial EKG Interpretation: Sinus Rhythm, No Acute Injury Pattern, Non-Specific ST Changes - anterior precordial T-wave flattening Prior: Unchanged Treatment: NTG SL Repeat Eval: Pain Free - Almost HUONG Risk: >/= 3RF, H/O CAD, ASA within 7 days, Severe Angina </=24 hours Score: 4 - Medical Decision Making Patient is feeling much better after nitroglycerin. She declined fentanyl that was offered, asked for Tylenol because the nitroglycerin gave her headache, and that made her headache much better. She appears much better is able to ambulate to and from the bathroom without any discomfort. Her EKG is unchanged, her enzymes are negative, but I am concerned about the symptoms she is having after having received her stent just over 5 weeks ago. Discussed with cardiology Dr. Jackson. Agrees with admission, and possibly will need recath tomorrow or possibly the next day, but advises cycle enzymes for now and agrees with nitroglycerin paste since the patient is feeling better with the nitroglycerin. ED Disposition - Plan for ED Patient: Disposition: Acute Care [facility] Diagnosis: Chest pain Referrals: Ellis Crandall MD [Primary Care Provider] -
[2021-01-24] MEDS: Nitroglycerin SL (ED/IMG/CATH) 0.4 MG TABLET SUBLINGUAL (17:19)
[2021-01-24 17:23] LABS: Absolute Lymphocyte Count 2.56 X10^3/uL (0.83-4.51); Absolute Neutrophil Count 3.6 X10^3/uL (2.0-7.7); Basophil# 0.06 X10^3/uL; Basophil% 0.9 % (0-1); Eosinophil# 0.33 X10^3/uL; Eosinophils% 4.7 % (0-5); Hematocrit 42.5 % (37-47); Hemoglobin 14.1 g/dL (12.0-15.0); Lymphocyte # 2.56 X10^3/ul (4.0); Lymphocyte % 36.6 % (19-41); Mean Corp Hgb Conc 33.2 g/dL (32-36); Mean Corpuscular Hgb 30.2 pg (27.0-32.0); Monocyte# 0.45 X10^3/uL; Monocyte% 6.4 % (0-10); NRBC Flagged by Analyzer 0 % (0-5); Neutrophil # 3.59 X10^3/uL (2.7-7.7); Neutrophil % 51.3 % (47-70); Platelet Count 292 K/mm3 (150-450); RBC Distribution Width CV 13.3 % (11.6-14.6); RBC Distribution Width SD 44.8 fl (35.1-43.9); Red Blood Count 4.67 M/mm3 (4.2-5.4)
[2021-01-24 18:10] LABS: Anion Gap 5 (5-15); BUN 11 mg/dL (7-18); BUN/Creat Ratio 15.2 RATIO (10-20); Calcium,Total 9.1 mg/dL (8.5-10.1); Chloride 108 mmol/L (98-107); Creatinine, Serum 0.73 mg/dL (0.55-1.02); EST Glomerular Filtration Rate 89 mL/min (>60); Est Glom Filt Rate - Afr Amer 107 mL/min (>60); Estimated Creatinine Clearance 63.28 ml/min; Glucose 101 mg/dL (74-106); Potassium 3.8 mmol/L (3.5-5.1); Sodium Level 139 mmol/L (136-145)
[2021-01-24] MEDS: Nitroglycerin Oint 1 INCH PACKET 0.5 INCH TD (18:42)
--- NOTE | 2021-01-24 19:25 | PCM.HP.STD ---
Problem List (1) Chest pain Status: Acute (2) Atherosclerotic heart disease of [place] coronary artery without angina pectoris Status: Chronic (3) History of ST elevation myocardial infarction (STEMI) Status: Resolved (4) Old inferior wall myocardial infarction Status: Chronic (5) History of coronary artery stent placement Status: Chronic Comment: [id number] RCA w/ 3.5 x 22 mm Resolute Stent 12/18/20 (6) Ischemic cardiomyopathy Status: Chronic (7) Essential (primary) hypertension Status: Chronic (8) Nicotine dependence Status: Chronic History of Present Illness Date of Admission: 01/24/21 Chief Complaint: chest pain The patient is a 55 year old F presents with chest pain. Chest pain has been going on for weeks, it is left-sided and also in her back but progressively getting worse. Patient is also very anxious and preoccupied with it. Patient presented to the emergency room yesterday with this and was advised to be admitted, however the patient left AGAINST MEDICAL ADVICE. Pain got worse again today and she presented and is now willing to be admitted and further evaluated. Dr. Jackson, of cardiology, was contacted through the emergency room and said he would see the patient in consultation on the third. Patient did have a work-up including EKG and troponins both days which were both unremarkable. Patient states that her chest pain is burning type sensation which is X relieved with the nitro paste. Patient does note that she is very anxious overall and preoccupied with this chest pain. This chest pain is similar to when she had the myocardial infarction back in November. Patient states that she has been compliant with her medications. [] Past Medical History Past Medical History (Chronic Problems): Chronic Problems (Last Reviewed 01/13/21 @ 13:[address] Tc Lopez MD) Atherosclerotic heart disease of [place] coronary artery without angina pectoris (Chronic) Old inferior wall myocardial infarction (Chronic 12/18/20) History of coronary artery stent placement (Chronic 12/18/20) [id number] RCA w/ 3.5 x 22 mm Resolute Stent 12/18/20 Ischemic cardiomyopathy (Chronic) Essential (primary) hypertension (Chronic) Nicotine dependence (Chronic) Medical History: Medical History (Last Reviewed 01/24/21 @ 19:[address] Sincere Macdonald DO) Atherosclerotic heart disease of [place] coronary artery without angina pectoris (Chronic) I25.[address] elevation myocardial infarction (STEMI) (Resolved) Onset Date: 12/18/20 I25.2 Old inferior wall myocardial infarction (Chronic) Onset Date: 12/18/20 I25.2 Ischemic cardiomyopathy (Chronic) I25.5 Essential (primary) hypertension (Chronic) I10 Nicotine dependence (Chronic) F17.200 Bipolar affective disorder F31.9 Borderline personality disorder F60.3 GERD (gastroesophageal reflux disease) K21.9 Allergies morphine Allergy (Verified 01/24/21 16:54) Hives citalopram [From Celexa] Adverse Reaction (Verified 01/24/21 16:54) Other venlafaxine [From Effexor] Adverse Reaction (Verified 01/24/21 16:54) Other Home Medications: Ambulatory Orders Medication Instructions Recorded Omeprazole 40 mg PO DAILY 01/10/20 Aspirin [Aspirin, Baby] 81 mg PO DAILY@0800 #30 tab.chew 12/19/20 Ticagrelor [Brilinta] 90 mg PO BID #60 tab 12/19/20 Lorazepam [Ativan] 1 mg PO TID PRN #10 tab 01/08/21 sertraline 25 mg tablet 25 mg PO DAILY tab 01/13/21 Atorvastatin Calcium [Lipitor] 40 mg PO QHS 01/24/21 Lisinopril 10 mg PO DAILY 01/24/21 Metoprolol Tartrate [Lopressor 12.5 mg PO BID 01/24/21 (beta iban)] Surgical History: Surgical History (Last Reviewed 01/24/21 @ 19:[address] Sincere Macdonald DO) History of coronary artery stent placement (Chronic) Onset Date: 12/18/20 Z95.5 [id number] RCA w/ 3.5 x 22 mm Resolute Stent 12/18/20 Surgical History: - - section Smoking Status: Former smoker - *Family History Maternal Family History: Family History (Last Reviewed 01/24/21 @ 19:[address] Sincere Macdonald DO) Father CAD (coronary artery disease) Myocardial infarction History Items: Heart Disease - His father had multiple heart attacks Review of Systems Constitutional: Denies: Anorexia, Chills, Fever, Malaise, Weakness Eyes: Denies: Blurred vision, Double vision HEENT: Denies: Head Aches, Sinus Congestion, Sinus Drainage Cardiovascular: Reports: Chest Pain, Chest Tightness. Denies: Edema Respiratory: Reports: Shortness of Breath. Denies: Cough Gastrointestinal: Denies: Abdominal Pain, Nausea, Vomiting Genitourinary: Denies: Dysuria Musculoskeletal: Reports: - - Numbness down the left arm which is since resolved Skin: Denies: Rash, Wounds Psychiatric: Reports: Anxiety. Denies: Depression Hematologic/ Lymphatic: Reports: Easy Bruising. Denies: Easy Bleeding, Hx of blood clot Comment: All review of systems were negative except as mentioned above in the history of present illness and the other review of systems. VTE Information - Inpt Only VTE Present on Admission: No VTE Mechan Device Prophylaxis: None VTE Pharm Prophylaxis ordered?: No Reason prophylaxis not ordered:: Treatment Not Indicated Patient Problems: Active and Suspected Problems (Last Reviewed 01/13/21 @ 13:[address] Tc Lopez MD) Chest pain (Acute) - Physical Exam Vitals/I&O's: Vital Signs Temp Pulse Resp BP Pulse Ox 36.7 C 71 16 154/79 H 98 01/24/21 18:40 01/24/21 19:05 01/24/21 19:05 01/24/21 19:05 01/24/21 19:05 Oxygen Delivery Method Room Air Weight: 56.699 kg Body Mass Index (BMI) 24.4 General: Alert, Cooperative, No apparent distress HEENT: Atraumatic, Normocephalic Oral: Moist Mucosa, No Gingival or Mucosal Lesions/ Ulcerations Neck: No Nodes, Thyroid Normal Size and Texture Lungs: Clear to auscultation, Normal air movement, No rhonchi, No wheeze, No rales Cardiovascular: Regular rate, Regular Rhythm, Normal S1, Normal S2, No murmurs Abdomen: Bowel Sounds Present, Soft, Non Tender, Non-Distended, No Hepato-splenomegaly Extremities: No edema, No Calf Tenderness Skin: No rashes, No breakdown Musculoskeletal: No Tenderness to Palpation of Joints or Extremities, Cachexia Neurological: Muscle tone normal Psych/Mental Status: Normal Affect, Appropriate Laboratory Results 01/24/21 17:05: WBC 7.0, RBC 4.67, Hgb 14.1, Hct 42.5, MCV 91.0, MCH 30.2, MCHC 33.2, RDW Std Deviation 44.8 H, RDW Coeff of Dona 13.3, Plt Count 292, MPV 10.0, Immature Gran % (Auto) 0.100, Neut % (Auto) 51.3, Lymph % (Auto) 36.6, [place] % (Auto) 6.4, Eos % (Auto) 4.7, Baso % (Auto) 0.9, Absolute Neuts (auto) 3.6, Absolute Lymphs (auto) 2.56, Nucleated RBC % 0 01/24/21 17:05: Sodium 139, Potassium 3.8, Chloride 108 H, Carbon Dioxide 26.0, Anion Gap 5, BUN 11, Creatinine 0.73, Estim Creat Clear Calc 63.28, Est GFR (MDRD) Af Amer 107, Est GFR (MDRD) Non-Af 89, BUN/Creatinine Ratio 15.2, Glucose 101, Calcium 9.1, Troponin I < 0.015 Assessment/Plan All Active Problems (Last Reviewed 01/13/21 @ 13:[address] Tc Lopez MD) Chest pain (Acute) History of ST elevation myocardial infarction (STEMI) (Resolved 12/18/20) 1. Chest pain Atypical, but the patient states that it similar to when she had myocardial infarction back in November when she had stenosis to her proximal RCA. Thus far work-up has been unremarkable and no evidence of myocardial infarction at this time Plan: Continue with her home medications with aspirin ticagrelor and statin and lisinopril and metoprolol tartrate Cardiology on consultation to see what additional cardiac work-up would be necessary during this hospitalization. I did mention to the patient that if possible she may require another cardiac catheterization but stated that that would be a discussion between she and the transcription. 2. Anxiety Complicates her picture. Patient seems very preoccupied with the chest pain and is going through myriad of worse case scenarios, including having her children find her in her home. I did inform the patient that this certainly could be a component of anxiety but that would be a diagnosis of exclusion. Reassurance attempted. Unclear how reassured she was. Plan: Continue with sertraline. Consider counseling or psychiatry follow-up as outpatient. 3. VTE prophylaxis: Not indicated this patient is observation status 4. Advanced care planning: Greater than 20 minutes I discussed with the patient about full code versus DNR Comfort Care arrest. Explained that with CPR that if she were to survive that she would likely require ventilator support least for short period of time. Patient expressed no desire for life support. She wishes to be DNR. We both agreed that based on her wishes DNR Comfort Care arrest and no intubation would fulfill that. I did inform her that any decision as she makes regards to her CODE STATUS is subject to change at her discretion. I did inform her, and she was very anxious as she was asked this yesterday, that this is standard questioning for people to be admitted and that we did anticipate any issues in regards to cardiac arrest during this hospitalization. I did inform her that if she does require cardiac catheterization or another procedure that DNR would have to be rescinded temporarily and then. She was comfortable with that. OBSV E&M: [id number] Initial observation care L2 Procedures: [id number] Advncd Care Plan 30 Min
--- NOTE | 2021-01-24 19:52 | EKG12_ITS ---
Test Reason : CP Blood Pressure : / mmHG Vent. Rate : 078 BPM Atrial Rate : 078 BPM P-R Int : 158 ms QRS Dur : 092 ms QT Int : 394 ms P-R-T Axes : 072 069 049 degrees QTc Int : 449 ms Sinus rhythm with Premature supraventricular complexes Otherwise normal ECG Confirmed by GLEN KING, JOE ([id number]), editor producer FILI CASTILLO ([id number]) on 01/30/2021 2:12:14 PM Referred By: Confirmed By:JOE CARROLL MD
[2021-01-24] MEDS: Atorvastatin Calcium 40 MG Tablet PO (21:15)
[2021-01-24] MEDS: TICAGRELOR 90 MG TABLET PO (21:15)
[2021-01-24] MEDS: Acetaminophen 325 MG Tablet 650 MG PO (21:15)
[2021-01-24] MEDS: Metoprolol Tartrate 25 MG Tablet 12.5 MG PO (21:16)
[2021-01-25] VITALS (15 sets, daily range): BP systolic 109–149; BP diastolic 76–94; PULSE 62–75; RESP 14–20; TEMP 36.4–36.8; O2SAT 94–98
--- NOTE | 2021-01-25 07:17 | CON.PCM_ITS ---
Problem List (1) Unstable angina Status: Acute (2) Atherosclerotic heart disease of [place] coronary artery without angina pectoris Status: Chronic Qualifiers: [place] vs. transplanted heart: [place] heart Qualified Code(s): I25.10 - At herosclerotic heart disease of [place] coronary artery without angina pectoris (3) History of coronary artery stent placement Status: Chronic Comment: [id number] RCA w/ 3.5 x 22 mm Resolute Stent 12/18/20 (4) Ischemic cardiomyopathy Status: Chronic (5) Essential (primary) hypertension Status: Chronic Reason for Consult Date of Consultation: 01/25/21 History of Present Illness: The patient is a 55 year old white female with a past cardiovascular history of an acute coronary syndrome/STEMI status post diagnostic cardiac catheterization/PCI is 12-18-2020 with RCA PTCA/stent) retention who presents for concerns of chest discomfort concerning for unstable angina pectoris. She states that over the last several days she has had a combination of symptoms including burning between her shoulder blades that resembles the discomfort she had prior to her STEMI, burning in her precordial area, chest tightness/pressure in her left pectoral area, and intermittent sharp fleeting discomforts in her left chest area, with no associated nausea, emesis, diaphoresis, or dyspnea. She states the burning sensation which feels like a rug burn internally. She has been using her PPI with no improvement. Based upon her concerns she did present to the [facility] emergency department on 01-23-2021. At that time the emergency department staff recommended that the patient be admitted to the hospital for further cardiovascular evaluation and care. The patient subsequently declined. She presented back yesterday with the same symptoms. This time she was agreeable to being brought into the hospital for further evaluation and care. She states she knows she should have stayed during her first emergency room visit however she was anxious about being back in the hospital. She has denied any orthopnea or PND or peripheral pitting edema. She denies any near-syncope or syncope. She states she has been taking her medications as prescribed. She does admit she is very anxious and very concerned that she is having a recurrent cardiac event. She was placed in the PCU for further evaluation and care. Her cardiac enzymes have been negative. Her ECG demonstrated sinus rhythm with no acute ECG changes initially or on repeat ECG. Past Medical History Allergies/Adverse Reactions: Allergies morphine Allergy (Verified 01/24/21 16:54) Hives citalopram [From Celexa] Adverse Reaction (Verified 01/24/21 16:54) Other venlafaxine [From Effexor] Adverse Reaction (Verified 01/24/21 16:54) Other Home Medications: Ambulatory Orders Medication Instructions Recorded Omeprazole 40 mg PO DAILY 01/10/20 Aspirin [Aspirin, Baby] 81 mg PO DAILY@0800 #30 tab.chew 12/19/20 Ticagrelor [Brilinta] 90 mg PO BID #60 tab 12/19/20 Lorazepam [Ativan] 1 mg PO TID PRN #10 tab 01/08/21 sertraline 25 mg tablet 25 mg PO DAILY tab 01/13/21 Atorvastatin Calcium [Lipitor] 40 mg PO QHS 01/24/21 Lisinopril 10 mg PO DAILY 01/24/21 Metoprolol Tartrate [Lopressor 12.5 mg PO BID 01/24/21 (beta iban)] Past Medical History (Chronic Problems): Chronic Problems (Last Reviewed 01/24/21 @ 19:[address] 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 Sincere Macdonald DO) Father CAD (coronary artery disease) Myocardial infarction History Items: Heart Disease - His father had multiple heart attacks Smoking Status: Former smoker Alcohol: None Drugs: None Review of Systems - Review of Systems General: Denies: Fever, Night Sweats, Fatigue Cardiovascular: Reports: Chest Discomfort, Chest Discomfort at Rest, Chest Discomfort with Exertion. Denies: Shortness of Breath, Orthopnea, PND, Peripheral Edema, Palpitations, Lightheadedness, Dizziness, Near Syncope, Syncope Respiratory: Denies: Cough, Sputum Production, Hemoptysis Gastrointestinal: Denies: Hematemesis, Hematochezia, Melena Genitourinary: Denies: Dysuria, Hematuria Skin: Denies: Rash Subjectve: This is a 55-year-old white female who needs to complain of her chest discomforts but appears to be resting comfortably at the moment in no acute distress. Objective: Vital Signs Temp Pulse Resp BP Pulse Ox 98.1 F 75 16 125/76 H 97 01/25/21 01:45 01/25/21 03:03 01/25/21 01:45 01/25/21 01:45 01/25/21 01:45 Oxygen Delivery Method Room Air Weight: 120 lb 5.958 oz Body Mass Index (BMI) 23.5 General: Awake, Alert, Oriented x 3, Cooperative, No Acute Distress HEENT: Atraumatic, Normocephalic, PERRL, EOMI, Sclera Non Icteric Neck: Supple, Good ROM, No JVD Lungs: Clear to auscultation Cardiovascular: Regular Rhythm, Normal S1, Normal S2, Positive S4 Vascular: No Carotid Bruits Abdomen: Bowel Sounds Present, Soft Extremities: No edema Neurological: No Focal Motor or Sensory Deficit Psych/Mental Status: Anxious 01/24/21 17:05: WBC 7.0, RBC 4.67, Hgb 14.1, Hct 42.5, MCV 91.0, MCH 30.2, MCHC 33.2, Plt Count 292, MPV 10.0, Immature Gran % (Auto) 0.100, Neut % (Auto) 51.3, Lymph % (Auto) 36.6, [place] % (Auto) 6.4, Eos % (Auto) 4.7, Baso % (Auto) 0.9, Absolute Neuts (auto) 3.6, Nucleated RBC % 0 01/24/21 17:05: Sodium 139, Potassium 3.8, Chloride 108 H, Carbon Dioxide 26.0, Anion Gap 5, BUN 11, Creatinine 0.73, Est GFR (MDRD) Af Amer 107, Est GFR (MDRD) Non-Af 89, BUN/Creatinine Ratio 15.2, Glucose 101, Calcium 9.1, Troponin I < 0.015 01/24/21 20:14: Troponin I < 0.015 01/24/21 22:40: Troponin I < 0.015 Rhythm: Sinus rhythm EKG: Sinus rhythm ECHO: 12-18-2020 Left ventricle: LVEF reported at 47% Cardiac Cath: 12-18-2020 Left main: Normal LAD: 20 to 30% stenosis Diagonal branch: Ostial 50 to 60% stenosis LCx: Normal RCA: Occluded PCI: 12-18-2020 RCA PTCA/stent Assessment/Plan 1. Unstable angina pectoris The patient presents with chest discomfort which is concerning for unstable angina pectoris based upon her history with accelerating discomfort in a nonexertional state resembling her discomfort she had prior to her STEMI. She also has an element of an atypical chest discomfort as well. At the present time she has been monitored. Her cardiac enzymes have been negative. Her ECG is demonstrated no new acute changes. She states she has been taking her medications as prescribed. Upon her clinical course it was previously discussed with her by the emergency department staff and the hospital staff that she be considered for reevaluation in the cardiac catheterization laboratory. This does not appear to be unreasonable based upon her history and ongoing issues. The procedure and risks were discussed with her. She appeared agreeable to this approach. 2. CAD status post STEMI status post RCA PTCA/stent The patient does have a history of CAD as noted above. She has undergone evaluation the cardiac catheterization laboratory for her previous STEMI resulting in findings of RCA occlusion resulting in RCA PTCA/stent. She presents back now with the aforementioned scenario. Her objective findings appear to be unremarkable thus far. However based upon her history and ongoing symptoms it was felt reasonable the patient be reevaluated in the cardiac catheterization laboratory. 3. Hypertension The patient will need to continue to have her blood pressure monitored with her medicines adjusted accordingly. Comment: The patient's case has been previously discussed with the patient and Dr. Izaguirre of the [facility] emergency department staff. This note was generated using a voice recognition system and there may be incorrect words, spelling or punctuation that were not noted when reviewing the office note prior to saving.
[2021-01-25] MEDS: Lisinopril 10 MG Tablet PO (07:49)
[2021-01-25] MEDS: Sertraline 50 MG Tablet 25 MG PO (07:49)
[2021-01-25] MEDS: 0.9% Saline Lock 10 ML Syringe IV (07:49)
[2021-01-25] MEDS: Aspirin 81 MG TAB.CHEW PO (07:50)
[2021-01-25] MEDS: TICAGRELOR 90 MG TABLET PO (07:50)
[2021-01-25] MEDS: Metoprolol Tartrate 25 MG Tablet 12.5 MG PO (07:50)
[2021-01-25] MEDS: Pantoprazole Sodium 40 MG Tablet PO (07:50)
--- NOTE | 2021-01-25 09:01 | CL.D_ITS ---
Patient Name: SJ MOHAN Study Date: 01/25/2021 Performing: Tc Lopez MD Ht: 60 inches 152 cm : 1965 Wt: 121.4 lbs 55 kg Age: 55 Gender: female BSA: 1.51 PROCEDURE(S) PERFORMED [id number]/LV CLINICAL PROFILE AND INDICATIONS Indications: Worsening Angina Heart Failure: None Stress/Imaging Stress/Image Study Performed: No CAD Presentations: Symptom unlikely to be ischemic. CONCLUSIONS previously placed RCAstent patent. RECOMMENDATIONS Medical therapy DESCRIPTION OF PROCEDURE The patient arrived to the procedure lab. The risks and benefits of the procedure as well as a full d escription of our services here and current unavailability of surgical backup were fully explained to the patient and/or their significant other prior to the catheterization. The Timeout was completed, verifying the correct patient and procedure. The patient's procedural site was prepped and draped in the usual fashion. Local anesthetic was given subcutaneously to right radial region with Lidocaine 2% . Using a modified Seldinger technique, arterial access was obtained via the right radial artery, a 6 Fr sheath was inserted. Left Coronary Artery selective angiography was performed in multiple views u sing a 5 Fr. 4.0 [place] catheter. Right Coronary Artery selective angiography was then performed in mu ltiple views using a 5 Fr. 4.0 [place] catheter. Left Ventriculography was performed in SANTOS projection using a 5 Fr. [place] catheter. LV to AO pullback pressures were then recorded.The arterial sheath was pulled and a TR Band was applied for hemostasis w/ 13ml air CORONARY ANGIOGRAPHY DOMINANCE: Right Dominant LEFT HEART ASSESSMENT Left Ventricular Ejection Fraction: by LV Gram 60 % Normal LV wall motion Normal Left Ventricular systolic function LEFT MAIN: Angiographically normal LEFT ANTERIOR DESCENDING ARTERY: Mild luminal irregularities CIRCUMFLEX ARTERY: Mild luminal irregularities RIGHT CORONARY ARTERY: PROX RCA: Previously placed stent is patent COMPLICATIONS No Complications PROCEDURE MEDICATIONS Versed 2 mg IV Versed 1 mg IV Oxygen: 2 L/min via nasal cannula Heparin diluted in 23cc Heparinized saline. Patient given 10cc IA of this solution. 01/25/2021 08:37:4 5 Verapamil 2.5mg, Ntg 100mcgs, 2000 units of Heparin diluted in 23cc Heparinized saline. Patient give n 10cc IA of this solution. 01/25/2021 08:37:45 SUMMARY OF HEMODYNAMIC DATA Time AIR REST ECG 08:08:53 AO 130/81 (103) SA 08:39:54 LV 151/4, 15 08:45:22 LV 154/6, 13 08:45:29 LV 143/12, 16 08:46:37 LVp 141/12, 16 08:46:39 AOp 157/84 (115) 08:46:44 Signed By Tc Lopez MD On 01/25/2021 09:00:46 Tc Lopez MD
--- NOTE | 2021-01-25 10:38 | DCINST_ITS ---
- Discharge Diagnoses Current Active Problems: Current Active and Chronic Problems (Last Reviewed 01/24/21 @ 19:[address] 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) History of coronary artery stent placement (Chronic 12/18/20) [id number] RCA w/ 3.5 x 22 mm Resolute Stent 12/18/20 Ischemic cardiomyopathy (Chronic) Essential (primary) hypertension (Chronic) Nicotine dependence (Chronic) You will use the following diet at home:: Cardiac Discharge Activity: Return to Normal Activity Call your doctor if you observe: Shortness of breath, Dizziness, Fainting spells, Chest pain Allergies/Adverse Reactions: Allergies morphine Allergy (Verified 01/24/21 16:54) Hives citalopram [From Celexa] Adverse Reaction (Verified 01/24/21 16:54) Other venlafaxine [From Effexor] Adverse Reaction (Verified 01/24/21 16:54) Other Medications to take at Discharge Omeprazole 40 mg PO DAILY 01/10/20 Aspirin [Aspirin, Baby] 81 mg PO DAILY@0800 #30 tab.chew 12/19/20 Ticagrelor [Brilinta] 90 mg PO BID #60 tab 12/19/20 Lorazepam [Ativan] 1 mg PO TID PRN #10 tab 01/08/21 sertraline 25 mg tablet 25 mg PO DAILY tab 01/13/21 Atorvastatin Calcium [Lipitor] 40 mg PO QHS 01/24/21 Lisinopril 10 mg PO DAILY 01/24/21 Metoprolol Tartrate [Lopressor (beta iban)] 12.5 mg PO BID 01/24/21 Primary Care Physician: Ellis Crandall MD [Primary Care Provider] - Please follow up with your Primary Care Physician in: 1 Week Test Results: Test results from this visit will be discussed in further detail at your follow- up appointment, if applicable. Please Follow Up With: Chela May PA When: 4-6 Weeks Proposed Discharge Date: 01/25/21
--- NOTE | 2021-01-25 10:55 | PHA.DC.MR ---
Pharmacy Service has performed discharge medication reconciliation for this patient. The patient's discharge medication list was reviewed for discrepancies and discrepancies were resolved. Home Medications Omeprazole 40 mg PO DAILY 01/10/20 Aspirin [Aspirin, Baby] 81 mg PO DAILY@0800 #30 tab.chew 12/19/20 Ticagrelor [Brilinta] 90 mg PO BID #60 tab 12/19/20 Lorazepam [Ativan] 1 mg PO TID PRN #10 tab 01/08/21 sertraline 25 mg tablet 25 mg PO DAILY tab 01/13/21 Atorvastatin Calcium [Lipitor] 40 mg PO QHS 01/24/21 Lisinopril 10 mg PO DAILY 01/24/21 Metoprolol Tartrate [Lopressor (beta iban)] 12.5 mg PO BID 01/24/21
--- NOTE | 2021-01-25 12:00 | PCM.DC.SUM ---
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 Sincere Macdonald DO) Chest pain (Acute) Unstable angina (Acute) Date of Admission: 01/24/21 Date of Discharge: 01/25/21 - Primary Discharge Diagnosis Acute Problems: Active Problems (Last Reviewed 01/24/21 @ 19:[address] Sincere Macdonald DO) 1. Chest pain, ACS ruled out 2. CAD with history of RCA stent 3. Ischemic cardiomyopathy 4. Hypertension 5. Hyperlipidemia 6. Depression/anxiety 7. History of tobacco use - Secondary Discharge Diagnosis Chronic Problems: Chronic Problems (Last Reviewed 01/24/21 @ 19:[address] 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 Jackson/Dr. Lopez- Cardiology Operations: None Procedures: Cardiac catheterization Summary of Care Provided: The patient is a 55 year old F admitted 01/24/2021 due to chest pain. 1. Chest pain, ACS ruled out-troponin negative. EKG without acute changes. Given concern for unstable angina with recent RCA PTCA/stent 12/18/2020, patient further underwent cardiac catheterization which demonstrated patent previously placed RCA stent. Otherwise nonobstructive coronary arteries. Plan to continue medical management. Follow-up with cardiology in 4 to 6 weeks. 2. CAD with history of RCA stent-on aspirin, statin, Brilinta, lisinopril, metoprolol. 3. Ischemic cardiomyopathy-echocardiogram 12/19/2020 demonstrated an EF of 47%, stage I diastolic dysfunction. LVEF per cath 60%. 4. Hypertension-stable, continue lisinopril, metoprolol. 5. Hyperlipidemia-continue statin. 6. Depression/anxiety-on as needed Ativan and sertraline. Patient states she has a history of depression and anxiety however this has worsened since recent STEMI. She states she is constantly worrying that she will have another heart attack. Discussed current heart cath findings and provided reassurance. Recommended patient follow-up with [place] [facility] for counseling in addition to her medication regimen. Patient amenable. 7. History of tobacco use-encouraged cessation. Patient seen and examined prior to discharge. Physical assessment as noted below. Patient is stable for discharge with follow up recommendations as noted above. This patient was seen by ILIA Wild under the supervision of Dr. Alfonso. Patient Problems: Active and Suspected Problems (Last Reviewed 01/24/21 @ 19:[address] Sincere Macdonald, DO) Chest pain (Acute) Unstable angina (Acute) - Physical Exam Vitals/I&O's: Vital Signs Temp Pulse Resp BP Pulse Ox 97.5 F L 68 20 H 128/81 H 95 01/25/21 10:00 01/25/21 10:00 01/25/21 10:00 01/25/21 10:00 01/25/21 10:00 Oxygen Delivery Method Room Air Weight: 120 lb 5.958 oz Body Mass Index (BMI) 23.5 General: Alert, Oriented x3, Cooperative HEENT: Atraumatic, PERRLA, EOMI, Normocephalic Neck: Supple, No JVD, Negative Carotid Bruits Lungs: Clear to auscultation, Normal air movement Cardiovascular: Regular rate, No murmurs Abdomen: Bowel Sounds Present, Soft, Non Tender Extremities: No edema, Capillary Refill Less than 3 Seconds Skin: No rashes, No breakdown Musculoskeletal: No Tenderness to Palpation of Joints or Extremities Neurological: Cranial nerves II-XII grossly intact, Neuro grossly intact Psych/Mental Status: Normal Affect, Appropriate Laboratory Results 01/24/21 17:05: WBC 7.0, RBC 4.67, Hgb 14.1, Hct 42.5, MCV 91.0, MCH 30.2, MCHC 33.2, RDW Std Deviation 44.8 H, RDW Coeff of [place] 13.3, Plt Count 292, MPV 10.0, Immature Gran % (Auto) 0.100, Neut % (Auto) 51.3, Lymph % (Auto) 36.6, [place] % (Auto) 6.4, Eos % (Auto) 4.7, Baso % (Auto) 0.9, Absolute Neuts (auto) 3.6, Absolute Lymphs (auto) 2.56, Nucleated RBC % 0 01/24/21 17:05: Sodium 139, Potassium 3.8, Chloride 108 H, Carbon Dioxide 26.0, Anion Gap 5, BUN 11, Creatinine 0.73, Estim Creat Clear Calc 63.28, Est GFR (MDRD) Af Amer 107, Est GFR (MDRD) Non-Af 89, BUN/Creatinine Ratio 15.2, Glucose 101, Calcium 9.1, Troponin I < 0.015 01/24/21 20:14: Troponin I < 0.015 01/24/21 22:40: Troponin I < 0.015 01/25/21 04:30: TSH 0.80 Current Medications Acetaminophen (Acetaminophen 325 Mg Tablet) 650 mg PO Q6H PRN PRN PRN Reason: Pain Score 1-10/Temp > 100.7 F Last Admin: 01/24/21 21:15 Dose: 650 mg Documented by: Aspirin (Aspirin 81 Mg Tab.Chew) 81 mg PO DAILY@0800 [facility] Last Admin: 01/25/21 07:50 Dose: 81 mg Documented by: Atorvastatin Calcium (Atorvastatin Calcium 40 Mg Tablet) 40 mg PO QHS [facility] Last Admin: 01/24/21 21:15 Dose: 40 mg Documented by: Sodium Chloride () 1,000 mls @ 0 mls/hr IV .Q0M [facility] Lisinopril (Lisinopril 10 Mg Tablet) 10 mg PO DAILY [facility] Last Admin: 01/25/21 07:49 Dose: 10 mg Documented by: Lorazepam (Lorazepam 0.5 Mg Tablet) 0.5 mg PO BID PRN PRN Reason: ANXIETY Metoprolol Tartrate (Metoprolol Tartrate 25 Mg Tablet) 12.5 mg PO BID [facility] Last Admin: 01/25/21 07:50 Dose: 12.5 mg Documented by: Nitroglycerin (Nitroglycerin (Inpatient Use) 0.4 Mg Tab.Subl) 0.4 mg SUBLINGUAL Q5M PRN PRN Reason: CARDIAC/CHEST PAIN Ondansetron HCl (Ondansetron 4 Mg/2 Ml Vial) 4 mg IV Q8H PRN PRN PRN Reason: NAUSEA/VOMITING Oxycodone HCl (Oxycodone 5 Mg Tablet) 5 mg PO Q4H PRN PRN PRN Reason: Pain Score 4-5 Oxycodone HCl (Oxycodone 5 Mg Tablet) 10 mg PO Q4H PRN PRN PRN Reason: Pain Score 6-10 Pantoprazole Sodium (Pantoprazole Sodium 40 Mg Tablet) 40 mg PO DAILY [facility] Last Admin: 01/25/21 07:50 Dose: 40 mg Documented by: Sertraline HCl (Sertraline 50 Mg Tablet) 25 mg PO DAILY [facility] Last Admin: 01/25/21 07:49 Dose: 25 mg Documented by: Sodium Chloride (0.9% Saline Lock 10 Ml Syringe) 10 - 40 ml IV UD PRN PRN Reason: SALINE FLUSH Last Admin: 01/25/21 07:49 Dose: 10 ml Documented by: Ticagrelor (Ticagrelor 90 Mg Tablet) 90 mg PO BID [facility] Last Admin: 01/25/21 07:50 Dose: 90 mg Documented by: Discharge Diet: Low fat/ Low Cholesterol Discharge Activity: Return to Normal Activity Call your doctor if you observe: Shortness of breath, Dizziness, Fainting spells, Chest pain Home Medications: Medications to take at Discharge Omeprazole 40 mg PO DAILY 01/10/20 Aspirin [Aspirin, Baby] 81 mg PO DAILY@0800 #30 tab.chew 12/19/20 Ticagrelor [Brilinta] 90 mg PO BID #60 tab 12/19/20 Lorazepam [Ativan] 1 mg PO TID PRN #10 tab 01/08/21 sertraline 25 mg tablet 25 mg PO DAILY tab 01/13/21 Atorvastatin Calcium [Lipitor] 40 mg PO QHS 01/24/21 Lisinopril 10 mg PO DAILY 01/24/21 Metoprolol Tartrate [Lopressor (beta iban)] 12.5 mg PO BID 01/24/21 Primary Care Physician: Ellis Crandall MD [Primary Care Provider] - Please follow up with your Primary Care Physician in: 1 Week Please Follow Up With: Chela May, PA When: 4-6 Weeks Disposition: Home Minutes spent on discharge:: 35 Patient Condition:: Stable Medical Necessity - Tobacco Use Smoking Status: Former smoker Meaningful Use Info Meaningful Use Diagnoses (Choose all that apply): None applicable <Dallin Alfonso - Last Filed: 01/25/21 15:32> Discharge Date and Diagnosis - Primary Discharge Diagnosis Acute Problems: Active Problems (Last Reviewed 01/24/21 @ 19:[address] Sincere Macdonald DO) Chest pain (Acute) Unstable angina (Acute) - Secondary Discharge Diagnosis Chronic Problems: Chronic Problems (Last Reviewed 01/24/21 @ 19:[address] 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/20) History of coronary artery stent placement (Chronic 12/18/20) [id number] RCA w/ 3.5 x 22 mm Resolute Stent 12/18/20 Ischemic cardiomyopathy (Chronic) Essential (primary) hypertension (Chronic) Nicotine dependence (Chronic) Hospital Course and Treatment Summary of Care Provided: The patient is a 55 year old F [] - Physical Exam Vitals/I&O's: Vital Signs Temp Pulse Resp BP Pulse Ox 98.2 F 67 20 H 144/90 H 98 01/25/21 12:00 01/25/21 12:00 01/25/21 12:00 01/25/21 12:00 01/25/21 12:00 Oxygen Delivery Method Room Air Weight: 120 lb 5.958 oz Body Mass Index (BMI) 23.5 Intake and Output for Last 24 Hours 01/23/21 01/24/21 01/25/21 23:59 23:59 23:59 Intake Total 360 / 360 Balance 360 / 360 Laboratory Results 01/24/21 17:05: WBC 7.0, RBC 4.67, Hgb 14.1, Hct 42.5, MCV 91.0, MCH 30.2, MCHC 33.2, RDW Std Deviation 44.8 H, RDW Coeff of [place] 13.3, Plt Count 292, MPV 10.0, Immature Gran % (Auto) 0.100, Neut % (Auto) 51.3, Lymph % (Auto) 36.6, [place] % (Auto) 6.4, Eos % (Auto) 4.7, Baso % (Auto) 0.9, Absolute Neuts (auto) 3.6, Absolute Lymphs (auto) 2.56, Nucleated RBC % 0 01/24/21 17:05: Sodium 139, Potassium 3.8, Chloride 108 H, Carbon Dioxide 26.0, Anion Gap 5, BUN 11, Creatinine 0.73, Estim Creat Clear Calc 63.28, Est GFR (MDRD) Af Amer 107, Est GFR (MDRD) Non-Af 89, BUN/Creatinine Ratio 15.2, Glucose 101, Calcium 9.1, Troponin I < 0.015 01/24/21 20:14: Troponin I < 0.015 01/24/21 22:40: Troponin I < 0.015 01/25/21 04:30: TSH 0.80 Addendum: Dr. Alfonso I personally examined the patient and reviewed the chart. I agree with the above. 55-year-old female presents with chest pain going on for several weeks. Is left-sided and also in her back. She initially presented to the hospital and was recommended for admission however she left it from the ER AGAINST MEDICAL ADVICE however progressed so she came back in and she was willing to be evaluated by cardiology. Because she had recently had all heart attack in November necessitating a stent placement, she was taken to the [employer] today to make sure that her coronary arteries were clean and her current stent looks open and there is no other areas necessary for stenting therefore she was discharged home especially since her chest pain had resolved. Cardiology will see her in 4 to 6 weeks and did not recommend any changes to her medications. She states that her chest pain had resolved and she would like to go home, I discussed with her the plan for discharge and she expressed understanding of the risk benefits of going home and would still like to go home today. OBSV E&M: [id number] Observation care discharge
== END 2021-01-25 12:35 | disposition home or self-care (01) ==
LOC: ED 18:37 → PCU 19:47
PROVIDERS: Emergency Provider Emergency Medicine; PCP Family Medicine; Visit Provider Family Medicine
DX: I25.110 Atherosclerotic heart disease of native coronary artery with unstable angina pectoris (principal); I25.2 Old myocardial infarction; I10 Essential (primary) hypertension; I25.5 Ischemic cardiomyopathy; F31.9 Bipolar disorder, unspecified; F60.3 Borderline personality disorder; K21.9 Gastro-esophageal reflux disease without esophagitis; F41.9 Anxiety disorder, unspecified; Z79.899 Other long term (current) drug therapy; Z79.82 Long term (current) use of aspirin; Z87.891 Personal history of nicotine dependence; Z95.5 Presence of coronary angioplasty implant and graft; E78.5 Hyperlipidemia, unspecified
CPT/HCPCS: 36415; 80048; 84443; 84484; 85025; 93005; 93458; 99152; 99153; 99218; 99285; 99406; Q9967; A4216; C1769; C1894; G0378

== ENCOUNTER 2021-02-15 10:15 | Outpatient (RCR) | payer MEDICAID, SELFPAY ==
[2021-01-18 13:15] VITALS: BMI 19.8
[2021-01-18 13:28] VITALS: BMI 19.8
--- NOTE | 2021-02-15 06:59 | PCM.CR.ITP ---
Exercise - 30-day Assessment - Visit Date of Petr: 02/15/21 Session #:: 6 Comments:: Patient missed to to readmission with chest pain as primary complaint. She then missed 2 scheduled sessions as No Call/No Show. - Physician Prescribed Exercise Modalities: Treadmill, Airdyne, NuStep Frequency: 3x/week for 12 weeks [36 sessions] Intensity: 60-80% of age predicted maximum heart rate reserve Current METSs:: 3.0 have been unable to increase patients intesity due to attendance Target Heart Rate:: 107-141 Current RPE:: 13 Maximum Excercise HR:: 86 Resting Blood Pressure: 110/50 Maximum Exercise Blood Pressure: 140/78 EKG Type: Sinus rhythm to sinus tachycardia with rare PAC and PVC - Outcomes & Goals Goals:: Verbalizes understanding of THR, RPE & goal METS by session 6, Documents in home exercise log/reports 30 min aerobic 5 day/wk by DC, Demonstrates accurate pulse taking by DC - Intervention & Plan Exercise Program Goals: Instruct on personal THR & RPE, Instruct on MET level & personal MET goal, Show patient to take own pulse /validate performance until accurate, Instruct on home exercise - 30-day Reassessments 30 day Reassessments:: Not Met - Physical Activity Home Exercise Physical Activity - Home Exercise: Safe Exercise, Warm-up, Self-monitoring, Cool-Down, Home Exercise > 30 min Daily, Sitting Time <3 hours/daily - Outcomes & Goals Outcomes/Goals: Demonstrates correct Warm-up/exercise Cool-Down (S3) if = 2.5 METs, Verbalizes symptoms of exercise intolerance by Session 3 (S3), Demonstrate safe equipment use (S3) & follows exercise prescrition (6) - Intervention & Plan Plan/Intervention: Instruct warm-up & cool-down if exercising at > 2 METs, Instruct on symptoms of exercise intolerance & actions to take, Instruct & monitor on saf, Assess intial functional capacity & safety risk - 30-day Reassessments 30 day Reassessments:: Progressing Nutrition - 30-Day Assessment - Program Goals Nutrition Program Goals: LDL <100 optimal. 100 - 129 Near optimal. 130 - 159 Borderline High. 160 - 189 High. Total Cholesterol <200 desirable. 200 - 239 Borderline High. >/= 240 High. HDL < 40 Low >/=60 High. Triglycerides <150 desirable. <199 optimal. VlDL 5 - 40. HgbA1C <7%. BMI <25 Patient has diagnosis of Hyperlipidemia (ICD E78)?: Yes - Visit Date of Assessment:: 02/15/21 Session #:: 6 - Cholesterol/Lipids Triglycerides (mg/dL): 108 - 12/19/2020 Total Cholesterol (mg/dL): 242 LDL Cholesterol (mg/dL): 177 HDL Cholesterol (mg/dL): 43 Determine presence & major risk factors that modify LDL goal: Cigarette smoking, Hypertension or hypertensive medication Outcomes/Goals: Pt IDs own risk factors & lifestyle modifications by Session 10, Verbalizes symptoms of angina & response by session 3., Pt independently manages Intervention/Plan: Instruct on personal lipid levels & lipid goals/NCEP guidelines, Instruct on cholesterol Referral to dietitian:: Yes - Medial Nutrition Therapy 30-day Reassessments:: Progressing - Diabetes (Other Core Measures) Diabetes Type: Not Applicable - Weight Mgt (Other Care) Not Applicable: Yes Height: 5 ft 6 in Weight:: 123 lb - underweight BMI: 19.8 Diagnosis Overweight/Obesity BMI> 30% ICD-10 E66: No Diagnosis High BMI/Morbid Obesity BMI> 35% ICD-10 Z68: No Outcomes/Goals: Pt sets, maintains & shows weight loss goal & trend during rehab Intervention/Plan: Instruct on ideal BMI & set weight loss goal w/patient, Assist pt to ID & incorporate diet changes for weight loss by S9 30 day Reassessments:: Progressing - Healthy Eating Habits Will attend diet classes:: Yes Outcomes/Goals:: Consume diet rich in vegs,fruits,whole grain/high fiber,fish,lean meat, Limit sat/trans fats,cholesterol & added salts & sugars Intervention/Plan:: Assess current eating habits 30-day Reassessments:: Progressing Medical- 30-Day Assessment - Visit Date of Eval: 02/15/21 Session #:: 6 - Medication Compliance Preventative Medication(s):: Aspirin, Ticagrelor/P2Y12 inhibitor, Statin/lipid, Beta iban H/O mental health issues: depression, anxiety, or addiction?: Yes Doesn?t believe in the benefits of treatment?: No Believes medications are unnecessary or harmful?: No Has a concern about medication side effects?: No Expresses concern over the cost of medications?: Yes Outcomes/Goals: Verbalizes medications,desired effect & common side effects @ DC, Pt self-reports following medication regimen, Keeps card in wallet w/medications listed by DC Interventions/plans: Instruct on medication effects & side effects, Review medication list w/patient every two weeks, Instruct importance of taking meds as ordered & assist problem solving 30-day Reassessments:: Progressing - Tobacco Use Tobacco Use: Cigarettes How many cigarettes do you smoke per day?: 20 - down from 2-packs per day Years Smokin Do you use smokeless tobacco?: No Outcomes/Goals: Smoking cessation achieved or maintained by discharge, Identify aids/strategies for achieving smoking cessation by session 6 Interventions/plan: Instruct on effects of smoking & provide smoking cessation resource, Assist pt to set quit date & provide encouragement, Assist pt to develop strategies to achieve/maintain quit date, Assist pt w/nicotine replacement & medication for cessation success 30-day Reassessments:: Progressing - Hypertension Hypertension Diagnosis:: Hypertension ICD-10 I10 Resting Blood Pressure:: 110/50 [place] [employer] Hypertension Guidelines: [place] [employer] Hypertension Guidelines. Normal BP Less than 120/80. Elevated BP 120/80. Hypertension Stage 1: BP 130-139/80-89. Hypertesnion Stage 2: BP 140 or higher/90 or higher. Hypertension Crisis: BP higher than 180/120 Peak Exercise Blood Pressure:: 140/78 Outcomes/Goals: Able to verbalize/achieve optimal blood pressure <130/80, Incorporates diet changes & exercise for blood pressure control by DC Interventions/plan: Instruct on optimal blood pressure, hypertension & medications, Instruct on effects of sodium, alcohol, stress, exercise &hypertension 30 day Reassessments:: Progressing - Tobacco Cessation Referral Smoking Cessation Referral:: Yes Individual Education/Counseling:: Yes Education Schedule Given:: Yes Psychosocial - 30-Day Assess - VIsit Date of Eval: 02/15/21 Session #:: 6 Not Applicable: No History of previous Mental disease:: Yes History of Emotional Disorders: Depression, H/O Mental disease - Bipolar Disorder, borderline personality disorder Self-reported stressors: Family, Financial, Recent Illness - Target Goals Target Goals: Assess presence or absence of depression. Using a valid screening tool, maximizes coping skills. Positive support system - Psychosocial Test Tool Used:: PHQ-9 Questionnaire phq-9 Severity: Severity. 1-4 Minimal Depression. 5-9 Mild Depression. 10-14 Moderate Depression. 15-19 Moderately Sever Depression. 20-27 Severe Depression. Rule: - Referral to Behavioral Health PS - Interventions: Yes Referral to Physician if PHQ-9 if score is 5-9:, Yes Attend Stress Management Classes, No Referral to Behavioral Health if PHQ-9 score >9:, No Referral to [facility] - Outcomes/Goals: See list Psychosocial Outcomes/Goals:: ID's personal stressors & 2 strategies to manage stress by discharge - Intervention/Plan: See List Interventions/Plan:: Assess stressors,coping strategies & signs of derpression on admission, Instruct/assist pt to develop coping & personal stress Mgt strategies, Instruct patient to recognize signs & symptoms of depression, Instruct patient to recog - 30-day Reassessments: 30 day Reassessments:: Progressing Patient Health Questionnaire 30-Day Re-eval Assessment 1. Little interest or pleasure in doing things: Not at all 2. Feeling down, depressed, or hopeless: Nearly every day 3. Trouble falling or staying asleep, or sleeping too much: Several days 4. Feeling tired or having little energy: Nearly every day 5. Poor appetite or overeating: Not at all 6. Feeling bad about yourself -- or that you are a failure or have let yourself or your family down: More than half the days 7. Trouble concentrating on things, such as reading the newspaper or watching television: Several days 8. Moving or speaking so slowly that other people could have noticed. Or the opposite - being so fidgety or restless that you have been moving around a lot more than usual: Not at all 9. Thoughts that you would be better off , or of hurting yourself in some way: Not at all Total Score: 10 Self-Efficacy 30-Day Re-eval Assessment We would like to know how confident you are in doing certain activities. Please select your confidence level for:: Select your confidence level for the following using the scale 1-10 where 1 is not at all confident and 10 is totally confident. Your score is the average of all 6 responses. Fatigue: How confident are you that you can keep the fatigue caused by your disease from interfering with the things you want to do? Select Number: 3 Physical Discomfort or Pain: How confident are you that you can keep the physical discomfort or pain of your disease from interfering with the things you want to do? Select Number: 3 Emotional Distress: How confident are you that you can keep the emotional distress caused by your disease from interfering with the things you want to do? Select Number: 3 Other Symptoms or Health Problems: How confident are you that you can keep other symptoms or health problems from interfering with the things you want to do? Select Number: 4 Different Tasks and Activities: How confident are you that you can do the different tasks and activities needed to manage your health condition so as to reduce your need to see a doctor? Select Number: 5 Medication: How confident are you that you can do things other than just taking medication to reduce how much your illness affects your everyday life?
[2021-02-15 07:10] VITALS: BP 110/50; BP 140/78; BMI 19.8
== END 2021-02-22 23:59 ==
LOC: CR 10:15
PROVIDERS: PCP Family Medicine; Referring Provider Internal Medicine Cardiovascular Disease; Visit Provider Internal Medicine Cardiovascular Disease
DX: I25.10 Atherosclerotic heart disease of native coronary artery without angina pectoris (principal); Z95.5 Presence of coronary angioplasty implant and graft
CPT/HCPCS: 93798

== ENCOUNTER 2021-02-20 02:29 | Emergency (ER) | payer MEDICAID, SELFPAY ==
[2021-01-24 19:53] VITALS: BMI 23.5
[2021-02-20 02:31] VITALS: BP 155/78; PULSE 64; RESP 11; TEMP 36.6; O2SAT 100; BMI 25.4
--- NOTE | 2021-02-20 02:36 | ED.RN ---
CALLED FOR EKG PER PROTOCOL, PULLED OLD EKGS FOR
--- NOTE | 2021-02-20 02:41 | EKG12_ITS ---
Test Reason : CP Blood Pressure : / mmHG Vent. Rate : 060 BPM Atrial Rate : 060 BPM P-R Int : 156 ms QRS Dur : 094 ms QT Int : 430 ms P-R-T Axes : 070 068 051 degrees QTc Int : 430 ms Normal sinus rhythm Normal ECG Confirmed by GLEN KING, JOE ([id number]), commercial production editor FILI CASTILLO ([id number]) on 02/23/2021 9:31:26 AM Referred By: GLENDY Confirmed By:JOE CARROLL MD
--- NOTE | 2021-02-20 02:42 | ED.VIS.CHEST ---
History of Present Illness Chief Complaint: Chest Pain Informant: Patient Onset: Hours - over 24 Activity at onset: Rest Timing: Continuous Quality: Pressure - squeezing throughout left chest, Sharp - tonight, brief, intermittent left chest sharp pains, frequently, in addition to squeezing pressure Location: Left Chest Current Severity: Moderate Maximum Severity: Moderate Worsened By: Nothing. Not Worsened By: Exertion, Palpation, Breathing Relieved By: Nothing Associated Symptoms: - - anxiety. Negative for: Nausea, Vomiting, Diaphoresis, Dyspnea, Cough, Fever, Lightheadedness, Palpitations Narrative: Patient presents with 2 different types of chest discomfort, 1 is the left-sided nonpleuritic squeezing/pressure, the other is the left sided nonpleuritic sharp shooting brief discomfort that is intermittent. The squeezing pressure she has been having for over a month since she had a stent placed in her RCA in November. It went away around 1 or 2 weeks ago, she had a repeat catheterization since showing nothing new, and a patent stent because of having this discomfort. 1-2 days ago it returned and has been there ever since and now she has this new sharp pain. She admits that the presence of this discomfort has been making her very anxious and she is concerned about what might be causing it. She was taking ibuprofen in the first month which was helping, but she was advised not to do that unless she specifically was told to by cardiology, so she has not taken any in the last day or 2. She denies any other new symptoms. She denies any palpitations or near syncope/syncope. She states she has been compliant with her Brilinta and other medications. Prior Similar Symptoms: Yes - Past Medical History (1) Atherosclerotic heart disease of [place] coronary artery without angina pectoris Status: Chronic (2) Essential (primary) hypertension Status: Chronic (3) History of coronary artery stent placement Status: Chronic Comment: [id number]-[id number] RCA w/ 3.5 x 22 mm Resolute Stent 12/18/20 (4) Ischemic cardiomyopathy Status: Chronic (5) Nicotine dependence Status: Chronic Past Medical History - Allergies and Home Meds Allergies/Adverse Reactions: Allergies morphine Allergy (Verified 02/20/21 02:40) Hives citalopram [From Celexa] Adverse Reaction (Verified 02/20/21 02:40) Other venlafaxine [From Effexor] Adverse Reaction (Verified 02/20/21 02:40) Other Primary Care Physician: Ellis Crandall MD [Primary Care Provider] - Surgical History: - - section Smoking Status: Never smoker - Family History Maternal Family History: Family History (Last Reviewed 01/24/21 @ 19:[address] Sincere Macdonald, DO) Father CAD (coronary artery disease) Myocardial infarction Family History: Reports: Heart Disease - His father had multiple heart attacks Review of Systems General: Denies: Chills, Fever, Sweats Eyes: Denies: Visual changes - bilaterally, Diplopia ENT: Denies: Rhinorrhea, Sore throat Cardiovascular: Reports: Chest pain. Denies: Palpitations Respiratory: Denies: Dyspnea, Cough, Dyspnea on exertion Gastrointestinal: Denies: Abdominal pain, Nausea, Vomiting, Diarrhea, Melena, Hematochezia Genitourinary: Denies: Dysuria, Hematuria, Frequency Musculoskeletal: Denies: Back pain, Swelling, Extremity Pain Skin: Denies: Rash, Wounds Neurological: Denies: Headache, Weakness, Numbness Psych: Reports: Anxiety. Denies: Suicidal thoughts Physical Exam Vital Signs/Narrative: Vital Signs Temp Pulse Resp BP Pulse Ox 02/20/21 02:31 98 F 64 11 L 155/78 H 100 Inital Vital Signs reviewed: Yes General: Well nourished, Well developed, No Acute Distress Head: Normocephalic, Atraumatic Eyes: Perrl, EOMI ENT: Moist mucous membranes, No rhinorrhea Neck: Supple, Nontender Cardiovascular: Regular rate, Regular rhythm, No murmurs Respiratory: No distress, CTA bilaterally, Chest nontender Abdomen: Soft, Nontender, Nondistended, Normal bowel sounds Back: Nontender, Normal Inspection Extremities: Nontender, No edema. Negative for: Calf Tenderness Skin: Normal color, No rash, No Trauma Neurological: Alert, Oriented x3, Cranial nerves II-XII grossly intact, Normal Strength, Normal Sensation Psychological: - - anxious Diagnostic/Tx/Re-eval Chest X-Ray - ED: 1 View, Read by ED Physician, No Acute Disease, Chronic Changes - Hyperexpanded lungs without acute change, No Infiltrates Laboratory Tests 02/20/21 02/20/21 Range/Units 02:48 02:48 WBC 5.2 (4.4-11.0) K/mm3 RBC 4.37 (4.2-5.4) M/mm3 Hgb 13.0 (12.0-15.0) g/dL Hct 39.7 (37-47) % MCV 90.8 (81-99) fL MCH 29.7 (27.0-32.0) pg MCHC 32.7 (32-36) g/dL RDW Std Deviation 44.2 H (35.1-43.9) fl RDW Coeff of Dona 13.2 (11.6-14.6) % Plt Count 267 (150-450) K/mm3 MPV 10.0 (6.2-12.0) fl Immature Gran % (Auto) 0.200 (0.0-0.9) % Neut % (Auto) 42.2 L (47-70) % Lymph % (Auto) 43.5 H (19-41) % Warren % (Auto) 9.5 (0-10) % Eos % (Auto) 3.8 (0-5) % Baso % (Auto) 0.8 (0-1) % Absolute Neuts (auto) 2.2 (2.0-7.7) X10^3/uL Absolute Lymphs (auto) 2.28 (0.83-4.51) X10^3/uL Nucleated RBC % 0 (0-5) % Sodium 139 (136-145) mmol/L Potassium 3.7 (3.5-5.1) mmol/L Chloride 107 (98-107) mmol/L Carbon Dioxide 25.0 (21.0-32.0) mmol/L Anion Gap 7 (5-15) BUN 14 (7-18) mg/dL Creatinine 0.66 (0.55-1.02) mg/dL Estim Creat Clear Calc 69.99 ml/min Est GFR (MDRD) Af Amer 120 (>60) mL/min Est GFR (MDRD) Non-Af 99 (>60) mL/min BUN/Creatinine Ratio 21.3 H (10-20) RATIO Glucose 94 (74-106) mg/dL Calcium 9.0 (8.5-10.1) mg/dL Troponin I < 0.015 (<0.045) ng/mL - Rhythm Strip Rhythm Strip: Sinus Rhythm Rate: 60 Ectopy: None - EKG Initial EKG Interpretation: Sinus Rhythm, No Acute Injury Pattern - Normal EKG with normal axis and intervals Prior: Unchanged Treatment: Toradol IV, GI Cocktail - Medical Decision Making Patient's work-up here is negative. The atypical intermittent sharp pains do not sound cardiac. Given the duration of the squeezing pressure on the left side of her chest, I feel comfortable telling her that she is not having acute coronary syndrome or another STEMI. None of the symptoms sound concerning for pulmonary embolus or aortic dissection. Her chest x-ray shows a normal, narrow mediastinum and aortic knob. Her cardiac shadow is not enlarged compared with her other x-rays. The symptoms are not consistent with pericarditis either, nor does she have any EKG abnormalities at this time. She was given a GI cocktail and a one-time small dose of Toradol, she states they did not help her discomfort. Differential includes musculoskeletal etiologies, esophageal spasm and other esophageal/GI pathology, in addition to anxiety which she admittedly has. Patient is offered nitroglycerin, however she refuses due to the headache she got from it in the past, and she is comfortable going home and following up. ED Disposition - Plan for ED Patient: Disposition: Home or Assisted Living Diagnosis: Left-sided chest pain Instructions: ED Chest Pain, Noncardiac Referrals: Tc Lopez MD [STAFF PHYSICIAN] - As soon as possible (Call for follow-up appointment)
[2021-02-20] MEDS: Mag Hydrox/Al Hydrox/Simeth 30 ML UDC PO (02:54)
[2021-02-20 02:55] LABS: Absolute Lymphocyte Count 2.28 X10^3/uL (0.83-4.51); Absolute Neutrophil Count 2.2 X10^3/uL (2.0-7.7); Basophil# 0.04 X10^3/uL; Basophil% 0.8 % (0-1); Eosinophils% 3.8 % (0-5); Hematocrit 39.7 % (37-47); Lymphocyte # 2.28 X10^3/ul (4.0); Lymphocyte % 43.5 % (19-41); Mean Corp Hgb Conc 32.7 g/dL (32-36); Mean Corpuscular Hgb 29.7 pg (27.0-32.0); Mean Corpuscular Volume 90.8 fL (81-99); Monocyte% 9.5 % (0-10); NRBC Flagged by Analyzer 0 % (0-5); Neutrophil # 2.21 X10^3/uL (2.7-7.7); Neutrophil % 42.2 % (47-70); Platelet Count 267 K/mm3 (150-450); RBC Distribution Width CV 13.2 % (11.6-14.6); RBC Distribution Width SD 44.2 fl (35.1-43.9); Red Blood Count 4.37 M/mm3 (4.2-5.4); White Blood Count 5.2 K/mm3 (4.4-11.0)
[2021-02-20] MEDS: Ketorolac 15 MG/ML Vial IV (02:55)
--- NOTE | 2021-02-20 03:00 | RAD_ITS ---
STUDY: X-RAY CHEST REASON FOR EXAM: Female, 55 years old. chest pain TECHNIQUE: Single AP portable view of the chest. COMPARISON: None. FINDINGS: The lungs are clear and expanded. There is no demonstrated pleural abnormality. Normal size heart. Normal mediastinum and kirsten. Normal visualized pulmonary arteries. Normal visualized aortic arch and descending thoracic aorta. Normal visualized thoracic spine. Normal visualized ribs, clavicles, and shoulders. There is no demonstrated abnormality of the visualized soft tissue structures of the upper abdomen. RAD/Chest 1 View (Portable) IMPRESSION: Normal x-ray examination of the chest. Electronically Signed: Aure Romero MD at 5:01 EDT Tel , Service support ,
[2021-02-20 03:13] LABS: Anion Gap 7 (5-15); BUN 14 mg/dL (7-18); BUN/Creat Ratio 21.3 RATIO (10-20); Chloride 107 mmol/L (98-107); Creatinine, Serum 0.66 mg/dL (0.55-1.02); EST Glomerular Filtration Rate 99 mL/min (>60); Est Glom Filt Rate - Afr Amer 120 mL/min (>60); Estimated Creatinine Clearance 69.99 ml/min; Glucose 94 mg/dL (74-106); Potassium 3.7 mmol/L (3.5-5.1); Sodium Level 139 mmol/L (136-145)
[2021-02-20 04:17] VITALS: BP 154/74; PULSE 66; RESP 14; TEMP 36.6; O2SAT 97
[2021-02-20 04:18] VITALS: RESP 14
== END 2021-02-20 04:23 | disposition home or self-care (01) ==
PROVIDERS: Emergency Provider Emergency Medicine; PCP Family Medicine
DX: R07.9 Chest pain, unspecified (principal); F41.9 Anxiety disorder, unspecified; I25.10 Atherosclerotic heart disease of native coronary artery without angina pectoris; I10 Essential (primary) hypertension; I25.5 Ischemic cardiomyopathy; Z95.5 Presence of coronary angioplasty implant and graft; F17.200 Nicotine dependence, unspecified, uncomplicated; Z82.49 Family history of ischemic heart disease and other diseases of the circulatory system
CPT/HCPCS: 71045; 80048; 84484; 85025; 93005; 96374; 99285; A4216

== ENCOUNTER 2021-02-22 01:40 | Emergency (ER) | payer MEDICAID, SELFPAY ==
[2021-02-22 01:42] VITALS: BP 155/83; PULSE 74; RESP 14; TEMP 36.4; O2SAT 100; BMI 24.9
--- NOTE | 2021-02-22 01:43 | ED.RN ---
CALLED FOR EKG PER RN REQUEST, PULLED OLD EKGS FOR
--- NOTE | 2021-02-22 01:53 | RAD_ITS ---
STUDY: X-RAY CHEST REASON FOR EXAM: Female, 55 years old. chest pain TECHNIQUE: Single AP portable view of the chest. COMPARISON: 02/20/2021 FINDINGS: The lungs are clear and expanded. There is no demonstrated pleural abnormality. Normal size heart. Normal mediastinum and kirsten. Normal visualized pulmonary arteries. Normal visualized aortic arch and descending thoracic aorta. Normal visualized thoracic spine. Normal visualized ribs, clavicles, and shoulders. There is no demonstrated abnormality of the visualized soft tissue structures of the upper abdomen. RAD/Chest 1 View (Portable) IMPRESSION: Normal x-ray examination of the chest. Electronically Signed: Raj Fagan DO at 2:14 EDT Tel , Service support ,
--- NOTE | 2021-02-22 01:53 | EKG12_ITS ---
Test Reason : CP Blood Pressure : / mmHG Vent. Rate : 074 BPM Atrial Rate : 074 BPM P-R Int : 148 ms QRS Dur : 094 ms QT Int : 416 ms P-R-T Axes : 071 062 044 degrees QTc Int : 461 ms Normal sinus rhythm Normal ECG Confirmed by GLEN KING, JOE ([id number]), photographic editor FILI CASTILLO ([id number]) on 02/23/2021 9:55:16 AM Referred By: YING Confirmed By:JOE CARROLL MD
--- NOTE | 2021-02-22 01:56 | ED.DCSUM_ITS ---
History of Present Illness Chief Complaint: Chest Pain Informant: Patient Narrative: Patient is a 55-year-old female with a past medical history of CAD with stent, hypertension, bipolar, borderline personality disorder who presents to the emergency department for chest tightness. She states that this has been going on since the weekend. It is resolved whenever she takes her Ativan. She has been feeling very anxious. She feels like she could have another heart attack. She does not really describe it as pain but more of a tightness sensation that goes across her chest bilaterally. She also has a burning sensation across her chest and upper back. No rashes. No associated shortness of breath. Not exacerbated with exerting herself. She denies any leg swelling or calf pain. She was seen in the ED for the same complaint recently. She also went to see her PCP who put her on a muscle relaxer. This has not been helping. Patient did have a cardiac cath this month which did not require any intervention. She is a current every day smoker. She denies any abdominal pain. No nausea vomiting. No cough. No fever/chills. Past Medical History - Allergies and Home Meds Allergies/Adverse Reactions: Allergies morphine Allergy (Verified 02/22/21 01:42) Hives citalopram [From Celexa] Adverse Reaction (Verified 02/22/21 01:42) Other venlafaxine [From Effexor] Adverse Reaction (Verified 02/22/21 01:42) Other Primary Care Physician: Ellis Crandall MD [Primary Care Provider] - As soon as possible Prior records reviewed: Yes Surgical History: - - section Smoking Status: Current every day smoker - Family History Maternal Family History: Family History (Last Reviewed 01/24/21 @ 19:[address] Sincere Macdonald DO) Father CAD (coronary artery disease) Myocardial infarction Family History: Reports: Heart Disease - His father had multiple heart attacks Review of Systems All systems negative except as indicated General: Denies: Chills, Fever, Sweats Eyes: Denies: Visual changes - bilaterally, Diplopia ENT: Denies: Rhinorrhea, Sore throat Cardiovascular: Reports: - - Chest tightness. Denies: Chest pain, Palpitations Respiratory: Denies: Dyspnea, Cough, Dyspnea on exertion Gastrointestinal: Denies: Abdominal pain, Nausea, Vomiting, Diarrhea, Melena, Hematochezia Genitourinary: Denies: Dysuria, Hematuria, Frequency Musculoskeletal: Denies: Back pain, Extremity Pain Skin: Denies: Rash, Wounds Neurological: Denies: Headache, Weakness, Numbness Psych: Reports: Anxiety Physical Exam Vital Signs/Narrative: Vital Signs Temp Pulse Resp BP Pulse Ox 02/22/21 01:42 97.5 F L 74 14 155/83 H 100 Inital Vital Signs reviewed: Yes General: Well nourished, Well developed, No Acute Distress Head: Normocephalic, Atraumatic Eyes: Perrl, EOMI ENT: Moist mucous membranes, No rhinorrhea Neck: Supple, Nontender Cardiovascular: Regular rate, Regular rhythm, No murmurs Respiratory: No distress, CTA bilaterally, Chest tenderness - Over sternum Abdomen: Soft, Nontender, Nondistended, Normal bowel sounds Back: Nontender, Normal Inspection Extremities: Nontender, No edema. Negative for: Calf Tenderness Skin: Normal color, No rash Neurological: Alert, Oriented x3, Cranial nerves II-XII grossly intact, Normal Strength, Normal Sensation Psychological: - - Patient very anxious Diagnostic/Tx/Re-eval Chest X-Ray - ED: - - Chest x-ray interpreted by myself. No acute consolidation. No pleural effusions. Normal cardiac silhouette. Normal mediastinum. Agree with radiologist interpretation. - EKG Initial EKG Interpretation: - - Rate of 74 bpm and normal sinus rhythm. Normal intervals. Normal axis. No significant ST elevations or depressions. No T wave abnormalities. - Medical Decision Making Patient presents to the ED for chest tightness. She does have a history of heart attack with stent placed this year. She recently underwent cardiac cath which did not show any significant occlusion. She has been having this for over the past 5 to 6 days. It is relieved whenever she takes Ativan. Is not associated with exertion. EKG was obtained upon arrival which did not show any signs of acute ischemia or arrhythmia. She is satting 100% on room air. She is nontachycardic. Will check basic lab work along with chest x-ray. Patient's lab work-up did not reveal a significant acute abnormality. She is not anemic. Electrolytes within normal limits. Troponin is negative. Chest x- ray not show any signs of acute cardiopulmonary abnormality. Given the fact she had a cardiac cath earlier this month that showed a patent stent as well as no significant stenosis with negative troponin I do not feel that this is an acute coronary syndrome causing her discomfort. She more describing this as a burning sensation over her chest and back. She also complains of the chest tightness. None of this is exertional. I have very low concern for PE with the normal vital signs and no risk factors for thromboembolus. No evidence of aortic catastrophe. At this time I feel she is stable for discharge. She feels like this has a lot to do with her anxiety. She is on Zoloft for this. She is going to follow-up with her PCP tomorrow. Return precautions are reviewed. She understands and is agreeable with this plan. All questions answered. ED Disposition - Plan for ED Patient: Disposition: Home or Assisted Living Diagnosis: Chest tightness Instructions: ED Chest Pain, Noncardiac Referrals: Ellis Crandall MD [Primary Care Provider] - As soon as possible
[2021-02-22 01:58] LABS: Absolute Lymphocyte Count 1.36 X10^3/uL (0.83-4.51); Absolute Neutrophil Count 3.9 X10^3/uL (2.0-7.7); Basophil# 0.06 X10^3/uL; Eosinophil# 0.09 X10^3/uL; Eosinophils% 1.5 % (0-5); Hematocrit 42.3 % (37-47); Hemoglobin 13.8 g/dL (12.0-15.0); Lymphocyte # 1.36 X10^3/ul (4.0); Lymphocyte % 23.1 % (19-41); Mean Corp Hgb Conc 32.6 g/dL (32-36); Mean Platelet Vol. 10.2 fl (6.2-12.0); Monocyte# 0.44 X10^3/uL; Monocyte% 7.5 % (0-10); NRBC Flagged by Analyzer 0 % (0-5); Neutrophil # 3.93 X10^3/uL (2.7-7.7); Neutrophil % 66.7 % (47-70); Platelet Count 241 K/mm3 (150-450); RBC Distribution Width CV 13.2 % (11.6-14.6); RBC Distribution Width SD 45.1 fl (35.1-43.9); White Blood Count 5.9 K/mm3 (4.4-11.0)
[2021-02-22 02:12] LABS: Anion Gap 4 (5-15); BUN 10 mg/dL (7-18); BUN/Creat Ratio 13.2 RATIO (10-20); Calcium,Total 9.3 mg/dL (8.5-10.1); Chloride 104 mmol/L (98-107); Creatinine, Serum 0.76 mg/dL (0.55-1.02); EST Glomerular Filtration Rate 85 mL/min (>60); Est Glom Filt Rate - Afr Amer 103 mL/min (>60); Estimated Creatinine Clearance 60.78 ml/min; Glucose 99 mg/dL (74-106); Magnesium 2.2 mg/dL (1.6-2.6); Potassium 3.4 mmol/L (3.5-5.1); Sodium Level 134 mmol/L (136-145)
[2021-02-22 02:42] VITALS: BP 138/74; PULSE 99; RESP 18; O2SAT 100
== END 2021-02-22 02:42 | disposition home or self-care (01) ==
PROVIDERS: Emergency Provider Emergency Medicine; PCP Family Medicine
DX: R07.89 Other chest pain (principal); I25.10 Atherosclerotic heart disease of native coronary artery without angina pectoris; I10 Essential (primary) hypertension; F60.3 Borderline personality disorder; Z95.5 Presence of coronary angioplasty implant and graft; F17.200 Nicotine dependence, unspecified, uncomplicated; Z82.49 Family history of ischemic heart disease and other diseases of the circulatory system
CPT/HCPCS: 71045; 80048; 83735; 84484; 85025; 93005; 99284; A4216

== ENCOUNTER 2021-03-09 14:04 | Emergency (ER) | payer MEDICAID, SELFPAY ==
[2021-02-24 13:16] VITALS: BMI 19.8
[2021-03-09 14:04] VITALS: BP 168/109; PULSE 92; RESP 20; TEMP 36.6; O2SAT 100; BMI 25.1
--- NOTE | 2021-03-09 14:10 | EKG12_ITS ---
Test Reason : CP Blood Pressure : / mmHG Vent. Rate : 098 BPM Atrial Rate : 098 BPM P-R Int : 150 ms QRS Dur : 094 ms QT Int : 350 ms P-R-T Axes : 073 064 038 degrees QTc Int : 446 ms Normal sinus rhythm Nonspecific ST abnormality Abnormal ECG Confirmed by GARLAND KING, ALEX ([id number]), account services representative FILI CASTILLO ([id number]) on 03/14/2021 9:07:50 AM Referred By: BETZY Confirmed By:BARRETT HAQUE MD
[2021-03-09 14:11] VITALS: O2SAT 100
--- NOTE | 2021-03-09 14:13 | ED.VIS.GEN ---
History of Present Illness Chief Complaint: Chest Pain Informant: Patient Onset: Today Context: Gradual Onset Timing: Continuous Current Severity: Moderate Maximum Severity: Moderate Narrative: The patient is a 55-year-old female medical history significant for cardiovascular disease status post STEMI in November who presents to the emergency department with heart cramping. The patient has been compliant with her medications. She states that she has been in cardiac rehab. She states that an hour prior to arrival, she began to feel squeezing on the left side of her body into her chest. She states it also radiates down her arm. She states that she has had the symptoms at least 10 times since her STEMI. She has been evaluated in the emergency department. She has been admitted to the hospital. She had a repeat catheterization which was unremarkable. She is very concerned because she does not know what is causing her symptoms. She denies fever. She denies chills or sweats. Prior similar symptoms: Yes Recent Illness/Hospitalization: Yes Past Medical History - Allergies and Home Meds Allergies/Adverse Reactions: Allergies morphine Allergy (Verified 03/09/21 14:07) Hives citalopram [From Celexa] Adverse Reaction (Verified 03/09/21 14:07) Other venlafaxine [From Effexor] Adverse Reaction (Verified 03/09/21 14:07) Other Primary Care Physician: Ellis Crandall MD [Primary Care Provider] - Prior records reviewed: Yes Past Medical History: - - Coronary vascular disease status post stent Surgical History: - - section Smoking Status: Current every day smoker - Family History Maternal Family History: Family History (Last Reviewed 02/24/21 @ 15:17 by Chela HAND, PA) Father CAD (coronary artery disease) Myocardial infarction Family History: Reports: Heart Disease - His father had multiple heart attacks Review of Systems General: Denies: Chills, Fever, Sweats Eyes: Denies: Visual changes - bilaterally, Diplopia ENT: Denies: Rhinorrhea, Sore throat Cardiovascular: Reports: Chest pain. Denies: Palpitations Respiratory: Denies: Dyspnea, Cough, Dyspnea on exertion Gastrointestinal: Denies: Abdominal pain, Nausea, Vomiting, Diarrhea, Melena, Hematochezia Genitourinary: Denies: Dysuria, Hematuria, Frequency Musculoskeletal: Denies: Back pain, Extremity Pain Skin: Denies: Rash, Wounds Neurological: Denies: Headache, Weakness, Numbness Physical Exam Vital Signs/Narrative: Vital Signs Temp Pulse Resp BP Pulse Ox 03/09/21 14:11 100 03/09/21 14:04 97.8 F 92 20 H 168/109 H 100 Inital Vital Signs reviewed: Yes General: Well nourished, Well developed, No Acute Distress Head: Normocephalic, Atraumatic Eyes: Perrl, EOMI ENT: Moist mucous membranes, No rhinorrhea Neck: Supple, Nontender Cardiovascular: Regular rate, Regular rhythm, No murmurs Respiratory: No distress, CTA bilaterally, Chest nontender Abdomen: Soft, Nontender, Nondistended, Normal bowel sounds Back: Nontender, Normal Inspection Extremities: Nontender, No edema Skin: Normal color, No rash Neurological: Alert, Oriented x3, Cranial nerves II-XII grossly intact, Normal Strength, Normal Sensation Psychological: Normal affect, Normal Mood Diagnostic/Tx/Re-eval Chest X-Ray - ED: 1 View, Read by ED Physician, Unchanged, Normal, Heart, Lungs, Mediastinum, Bony Structures, No Acute Disease - Rhythm Strip Rhythm Strip: Sinus Rhythm Rate: 80 Ectopy: None - EKG Initial EKG Interpretation: Sinus Rhythm, No Acute Injury Pattern Prior: Unchanged - Medical Decision Making The patient presents with heart cramping. She does have significant history of cardiovascular disease, but had recent catheterization which was unremarkable. EKG was obtained which was sinus rhythm without evidence of acute ischemia. Patient was given Ativan and fluids and had resolution of her symptoms. Metabolic work-up was pursued. Chest x-ray reviewed by myself shows no focal infiltrative process, evidence of cardiomegaly, or volume overload. Patient's lab work was unremarkable except for mild hypokalemia. I do feel this may be contributing to her symptoms. This was replaced orally. With history of coronary vascular disease, I will do a repeat 3-hour troponin level. The patient states that she has stopped taking her potassium and I counseled her on the importance of this. I do feel that a lot of this is anxiety mediated given her recent heart attack and hypersensitivity to the symptoms. If this is negative, the patient will be discharged home. Impression 1. Atypical chest pain 2. Hypokalemia ED Disposition - Plan for ED Patient: Instructions: ED Chest Pain, Noncardiac Referrals: Ellis Crandall MD [Primary Care Provider] -
[2021-03-09 14:18] LABS: Absolute Lymphocyte Count 3.79 X10^3/uL (0.83-4.51); Absolute Neutrophil Count 2.9 X10^3/uL (2.0-7.7); Basophil# 0.07 X10^3/uL; Basophil% 0.9 % (0-1); Eosinophil# 0.15 X10^3/uL; Hematocrit 42.2 % (37-47); Hemoglobin 13.8 g/dL (12.0-15.0); Lymphocyte # 3.79 X10^3/ul (0.83-4.51); Lymphocyte % 49.7 % (19-41); Mean Corp Hgb Conc 32.7 g/dL (32-36); Mean Corpuscular Hgb 29.6 pg (27.0-32.0); Mean Corpuscular Volume 90.6 fL (81-99); Mean Platelet Vol. 9.9 fl (6.2-12.0); Monocyte# 0.66 X10^3/uL; Monocyte% 8.7 % (0-10); NRBC Flagged by Analyzer 0 % (0-5); Neutrophil # 2.94 X10^3/uL (2.7-7.7); Neutrophil % 38.6 % (47-70); Platelet Count 386 K/mm3 (150-450); RBC Distribution Width CV 13.2 % (11.6-14.6); RBC Distribution Width SD 43.6 fl (35.1-43.9); Red Blood Count 4.66 M/mm3 (4.2-5.4); White Blood Count 7.6 K/mm3 (4.4-11.0)
[2021-03-09] MEDS: LORazepam 2 MG/ML Syringe 1 MG IV (14:20)
[2021-03-09] MEDS: Aspirin 81 MG TAB.CHEW 324 MG PO (14:20)
[2021-03-09] MEDS: 0.9% Normal Saline 1,000 ML 150 ML IV (14:22)
--- NOTE | 2021-03-09 14:25 | RAD_ITS ---
STUDY: X-RAY CHEST REASON FOR EXAM: Female, 55 years old. Left-sided chest tightness. TECHNIQUE: Single AP portable view of the chest. COMPARISON: Comparison is made with prior study dated 02/22/2021. FINDINGS: EKG electrodes are seen. The lungs are clear and expanded. There is no demonstrated pleural abnormality. Normal size heart. Normal mediastinum and kirsten. Normal visualized pulmonary arteries. Normal visualized aortic arch and descending thoracic aorta. Normal visualized thoracic spine. Normal visualized ribs, clavicles, and shoulders. There is no demonstrated abnormality of the visualized soft tissue structures of the upper abdomen. RAD/Chest 1 View (Portable) IMPRESSION: Normal x-ray examination of the chest. Electronically Signed: Darrell Wan MD at 14:40 EDT , Service support ,
[2021-03-09 14:35] LABS: Anion Gap 5 (5-15); BUN 8 mg/dL (7-18); BUN/Creat Ratio 10.6 RATIO (10-20); Calcium,Total 9.6 mg/dL (8.5-10.1); Chloride 102 mmol/L (98-107); Creatinine, Serum 0.75 mg/dL (0.55-1.02); EST Glomerular Filtration Rate 85 mL/min (>60); Est Glom Filt Rate - Afr Amer 103 mL/min (>60); Estimated Creatinine Clearance 61.59 ml/min; Glucose 73 mg/dL (74-106); Potassium 3.2 mmol/L (3.5-5.1); Sodium Level 133 mmol/L (136-145)
[2021-03-09] MEDS: Potassium Chloride Oral Tablet 20 MEQ 60 MEQ PO (15:36)
[2021-03-09 17:23] VITALS: PULSE 70; RESP 16; O2SAT 100
[2021-03-09 18:12] VITALS: BP 135/97; PULSE 72; RESP 16; O2SAT 99
[2021-03-09 18:22] VITALS: BP 135/91; PULSE 74; RESP 19; O2SAT 100
== END 2021-03-09 18:23 | disposition home or self-care (01) ==
LOC: ED 14:37
PROVIDERS: Emergency Provider Emergency Medicine; PCP Family Medicine
DX: R07.89 Other chest pain (principal); E87.6 Hypokalemia; F17.200 Nicotine dependence, unspecified, uncomplicated; Z82.49 Family history of ischemic heart disease and other diseases of the circulatory system; I25.2 Old myocardial infarction; Z95.5 Presence of coronary angioplasty implant and graft; I25.10 Atherosclerotic heart disease of native coronary artery without angina pectoris
CPT/HCPCS: 71045; 80048; 84484; 85025; 93005; 96361; 96374; 99284; J7030; A4216

== ENCOUNTER 2021-03-11 16:32 | Emergency (ER) | payer MEDICAID, SELFPAY ==
[2021-03-11 16:33] VITALS: BP 192/110; PULSE 65; RESP 16; TEMP 36.1; O2SAT 100; BMI 23.8
--- NOTE | 2021-03-11 16:47 | ED.DCSUM_ITS ---
History of Present Illness Chief Complaint: General Illness Narrative: Presents with epigastric pain and nausea. She tells me she is under a lot of stress, she has been seen here for chest pain however that has improved. Now she has some dysuria which was tested is negative at an urgent care, she also has some epigastric pain with nausea. No recent NSAIDs. No recent fever chills this pain does not radiate to her back. No lower abdominal pain. No chest pain shortness of breath fever or chills. Past medical history: Reviewed and includes hypertension, smoking history, [place] Medications: Reviewed, she tells me she is compliant Social history: Smoker Review of systems: All systems negative except as indicated General: No fever Eyes: No visual changes ENT: No upper airway congestion, normal voice Neck: No neck pain Cardiovascular: No chest pain Respiratory: No shortness of breath or cough Gastrointestinal: Gastric pain with nausea Genitourinary: Some dysuria is present Musculoskeletal: Denies myalgias no difficulty with ambulation Skin: No rash Neurological: No memory loss, confusion or any focal weakness Psych: Admits to being quite anxious Hematologic: No easy bleeding or easy bruising Physical exam General: Well nourished, Well developed, appears somewhat anxious Head: Normocephalic, Atraumatic Eyes: Conjunctiva not pale ENT: Moist mucous membranes Neck: Supple, Nontender, No lymphadenopathy Cardiovascular: Regular rate, Regular rhythm Respiratory: No distress, CTA bilaterally Abdomen: Soft, mild epigastric tenderness without any guarding or rebound. No lower abdominal pain. Negative Stevens's no real right upper quadrant abdominal pain. Back: Nontender, Normal Inspection. Negative for: CVA tenderness Extremities: Nontender, No edema Skin: Normal color, No rash Neurological: Alert, Normal Strength, Normal Sensation Psychological: Anxious appearing Past Medical History - Allergies and Home Meds Allergies/Adverse Reactions: Allergies morphine Allergy (Verified 03/11/21 16:33) Hives citalopram [From Celexa] Adverse Reaction (Verified 03/11/21 16:33) Other venlafaxine [From Effexor] Adverse Reaction (Verified 03/11/21 16:33) Other Primary Care Physician: Ellis Crandall MD [Primary Care Provider] - Surgical History: - - section Smoking Status: Current every day smoker - Family History Maternal Family History: Family History (Last Reviewed 02/24/21 @ 15:17 by Chlea HAND, PA) Father CAD (coronary artery disease) Myocardial infarction Family History: Reports: Heart Disease - His father had multiple heart attacks Physical Exam Vital Signs/Narrative: Vital Signs Temp Pulse Resp BP Pulse Ox 03/11/21 16:33 96.9 F L 65 16 192/110 H 100 Diagnostic/Tx/Re-eval - Medical Decision Making Patient has a normal emergency department work-up. She likely has gastritis she did improve with antacids and antiemetics. I will discharge her home with a ntiemetics and antacids. I will refer to GI. ED Disposition - Plan for ED Patient: Disposition: Home or Assisted Living Diagnosis: Gastritis Instructions: ED Gastritis (Adult) Prescriptions: Omeprazole 40 mg PO DAILY #30 capsule.dr Transmission Status: Pending to [facility] #30 Ondansetron [Zofran Odt] 4 mg PO Q8H PRN PRN #10 tablet PRN Reason: Nausea Transmission Status: Pending to [facility] #30 Referrals: Alhaji Melvin MD [STAFF PHYSICIAN] - 2 Days
[2021-03-11] MEDS: Ondansetron 4 MG/2 ML Vial IV (17:08)
[2021-03-11 17:28] LABS: Absolute Lymphocyte Count 3.07 X10^3/uL (0.83-4.51); Absolute Neutrophil Count 3.2 X10^3/uL (2.0-7.7); Basophil# 0.07 X10^3/uL; Eosinophil# 0.14 X10^3/uL; Hematocrit 43.1 % (37-47); Hemoglobin 14.3 g/dL (12.0-15.0); Lymphocyte # 3.07 X10^3/ul (0.83-4.51); Lymphocyte % 44.2 % (19-41); Mean Corp Hgb Conc 33.2 g/dL (32-36); Mean Corpuscular Hgb 30.1 pg (27.0-32.0); Mean Corpuscular Volume 90.7 fL (81-99); Mean Platelet Vol. 10.4 fl (6.2-12.0); Monocyte# 0.44 X10^3/uL; Monocyte% 6.3 % (0-10); NRBC Flagged by Analyzer 0 % (0-5); Neutrophil # 3.22 X10^3/uL (2.7-7.7); Neutrophil % 46.4 % (47-70); Platelet Count 382 K/mm3 (150-450); RBC Distribution Width CV 13.2 % (11.6-14.6); RBC Distribution Width SD 44.4 fl (35.1-43.9); Red Blood Count 4.75 M/mm3 (4.2-5.4)
[2021-03-11 17:47] LABS: AST(SGOT) 23 U/L (15-37); Alanine Aminotransfer ALT/SGPT 43 U/L (13-56); Albumin, Serum 4.1 g/dL (3.2-5.0); Alkaline Phosphatase 81 U/L (45-117); Anion Gap 7 (5-15); BUN 11 mg/dL (7-18); BUN/Creat Ratio 16.9 RATIO (10-20); Calcium,Total 9.9 mg/dL (8.5-10.1); Chloride 100 mmol/L (98-107); Creatinine, Serum 0.65 mg/dL (0.55-1.02); EST Glomerular Filtration Rate 100 mL/min (>60); Est Glom Filt Rate - Afr Amer 121 mL/min (>60); Estimated Creatinine Clearance 74.66 ml/min; Glucose 86 mg/dL (74-106); Lipase 134 U/L (73-393); Potassium 3.7 mmol/L (3.5-5.1); Protein, Total 8.1 g/dL (6.4-8.2); Sodium Level 133 mmol/L (136-145)
[2021-03-11 18:15] VITALS: BP 139/62; PULSE 64; RESP 18
== END 2021-03-11 18:18 | disposition home or self-care (01) ==
PROVIDERS: Emergency Provider Emergency Medicine; PCP Family Medicine
DX: K29.70 Gastritis, unspecified, without bleeding (principal); F17.200 Nicotine dependence, unspecified, uncomplicated; I10 Essential (primary) hypertension; I25.2 Old myocardial infarction; Z82.49 Family history of ischemic heart disease and other diseases of the circulatory system
CPT/HCPCS: 80053; 83690; 85025; 96372; 96374; 99284; J7040; J2405

== ENCOUNTER 2021-03-12 20:39 | Emergency (ER) | payer MEDICAID, SELFPAY ==
[2021-03-11 16:33] VITALS: BMI 23.8
[2021-03-12 20:40] VITALS: BP 210/90; PULSE 101; RESP 16; TEMP 36.4; O2SAT 98; BMI 24.6
--- NOTE | 2021-03-12 21:02 | EKG12_ITS ---
Test Reason : CHEST TIGHTNESS Blood Pressure : / mmHG Vent. Rate : 074 BPM Atrial Rate : 074 BPM P-R Int : 154 ms QRS Dur : 092 ms QT Int : 398 ms P-R-T Axes : 068 062 060 degrees QTc Int : 441 ms Normal sinus rhythm Normal ECG Confirmed by GARLAND KING, ALEX ([id number]), editor managing director FILI CASTILLO ([id number]) on 03/14/2021 8:41:18 AM Referred By: BERTA Confirmed By:BARRETT HAQUE MD
--- NOTE | 2021-03-12 21:08 | ED.DCSUM_ITS ---
History of Present Illness Chief Complaint: Chest Pain Informant: Patient Onset: Hours - several - this episode Timing: Continuous Quality: Burning Location: Substernal - all over chest Current Severity: Severe Maximum Severity: Severe Worsened By: - - lying supine and eating Relieved By: Nothing Associated Symptoms: Nausea, Vomiting, Lightheadedness - at times, unassociated w/ palpitations, Palpitations - when I lie down. Negative for: Dyspnea, Cough, Fever Narrative: Patient presenting with chest burning. She has been having the symptoms off and on since November when she had an inferior STEMI due to a proximal RCA occlusion. She has been to the emergency department multiple times for the same symptoms and admits that she is again, she is having left arm tingling today which she has been having off and on as well, she states she has never had any of the symptoms until she had her heart attack in November, and states they will not go away and she is concerned that something is wrong. This is the third ED visit with the same symptoms since her cardiology follow-up on 02/24, they did not do any medication adjustments then and felt this was all noncardiac. She even had a repeat catheterization in December showing that the stent in the RCA was patent, her low ejection fraction had improved from 40 to 60, and there were no other discrete areas of disease. She denies any new symptoms. - Past Medical History (1) Atherosclerotic heart disease of [place] coronary artery without angina pectoris Status: Chronic (2) Essential (primary) hypertension Status: Chronic (3) Ischemic cardiomyopathy Status: Chronic (4) Nicotine dependence Status: Chronic Past Medical History - Allergies and Home Meds Allergies/Adverse Reactions: Allergies morphine Allergy (Verified 03/12/21 20:44) Hives citalopram [From Celexa] Adverse Reaction (Verified 03/12/21 20:44) Other venlafaxine [From Effexor] Adverse Reaction (Verified 03/12/21 20:44) Other Primary Care Physician: Ellis Crandall MD [Primary Care Provider] - Surgical History: - - section Smoking Status: Current some day smoker - States she stopped a couple days ago - Family History Maternal Family History: Family History (Last Reviewed 02/24/21 @ 15:17 by Chela May PA, PA) Father CAD (coronary artery disease) Myocardial infarction Family History: Reports: Heart Disease - His father had multiple heart attacks Review of Systems General: Reports: Malaise. Denies: Chills, Fever, Sweats Eyes: Denies: Visual changes - bilaterally, Diplopia ENT: Denies: Bilateral ear pain, Rhinorrhea, Sore throat Cardiovascular: Reports: Chest pain, Palpitations Respiratory: Denies: Dyspnea, Cough, Dyspnea on exertion Gastrointestinal: Reports: Abdominal pain, Nausea, Vomiting. Denies: Diarrhea, Melena, Hematochezia Genitourinary: Denies: Dysuria, Hematuria, Frequency Musculoskeletal: Denies: Back pain, Extremity Pain Skin: Denies: Rash, Wounds Neurological: Reports: Parasthesia - LUE currently. Denies: Headache, Weakness Psych: Reports: Anxiety Physical Exam Vital Signs/Narrative: Vital Signs Temp Pulse Resp BP Pulse Ox 03/12/21 20:40 97.6 F L 101 H 16 210/90 H 98 Inital Vital Signs reviewed: Yes General: Well nourished, Well developed, No Acute Distress Head: Normocephalic, Atraumatic Eyes: Perrl, EOMI ENT: Moist mucous membranes, No rhinorrhea Neck: Supple, Nontender, No lymphadenopathy, No JVD Cardiovascular: Regular rate, Regular rhythm, No murmurs. Negative for: Tachycardia Respiratory: No distress, CTA bilaterally, Chest nontender Abdomen: Soft, Nondistended, Normal bowel sounds, Tender - mild epigastrium only. Negative for: Guarding, Rebound tenderness, Pulsatile mass Back: Nontender, Normal Inspection. Negative for: CVA tenderness Extremities: Nontender, No edema. Negative for: Calf Tenderness Skin: Normal color, No rash, No Trauma Neurological: Alert, Oriented x3, Cranial nerves II-XII grossly intact, Normal Strength, Normal Sensation Psychological: Normal Mood, - - anxious Diagnostic/Tx/Re-eval Impressions Chest CTA 03/12/21 21:19 IMPRESSION: No demonstrated PE, or thoracic aortic aneurysm or dissection Underlying emphysema without a superimposed acute pulmonary process Chronic bronchitis Electronically Signed: Reji Story MD at 22:31 EDT , Service support , 03/12/21 21:19 CTA Chest W/WO Contrast [CT] Stat Laboratory Results 03/12/21 21:10 Troponin I < 0.015 - Rhythm Strip Rhythm Strip: Sinus Rhythm Rate: 75 Ectopy: None - EKG Initial EKG Interpretation: Sinus Rhythm, No Acute Injury Pattern Prior: Unchanged Treatment: GI Cocktail, - - phenergan Repeat Eval: much improved, unless lies supine - gets burning, but temporary until sits - Medical Decision Making Patient feels much better with GI cocktail and Phenergan. Her work-up is negative. She has not had CT angiography of the chest in the last several months and she has been having all of this, because she had a D-dimer that was negative. I perform CTA of the chest and she was amenable to that, findings are above. She states she had pulmonary function test about a week ago and was formally diagnosed with COPD and this is consistent with that. However I do not think that is necessarily the cause of all of her symptoms. I think it is more likely GI. Prior to getting all these test, she was telling me I cannot eat- it makes everything worse especially if I eat the healthy stuff the healthcare network consultant will need to eat like fruits and vegetables. It is certainly possible that she has a lectin intolerance or some other food intolerance or just plain GERD that is causing all of this. I think the next visit she needs to make is to a plow holder, I discussed following up with her primary care doctor for referral since she is in the [facility] system and she is amenable to this plan and we discussed ways to manage her recurrent discomfort in the meantime. Also of note, she came in with a blood pressure of 210 systolic. Labetalol was ordered but she measured 149/83 prior to discharge without getting any of the medication so it was held and not given, I suspect this part is due to her anxiety. ED Disposition - Plan for ED Patient: Disposition: Home or Assisted Living Diagnosis: Chest pain, Single episode of hypertension Instructions: ED Chest Pain, Noncardiac Prescriptions: proMETHazine tablet [Phenergan] 25 mg PO Q6H PRN PRN #20 tab PRN Reason: Nausea Prescription Printed Referrals: Ellis Crandall MD [Primary Care Provider] - (Call for follow-up and to inquire about referral to gastroenterology for possible EGD)
[2021-03-12] MEDS: Mag Hydrox/Al Hydrox/Simeth 30 ML UDC PO (21:18)
[2021-03-12] MEDS: proMETHazine 25 MG Tablet PO (21:18)
[2021-03-12] MEDS: Labetalol (Prefilled) 20 MG/4 ML IV (21:18)
--- NOTE | 2021-03-12 21:19 | CT_ITS ---
STUDY: CTA CHEST REASON FOR EXAM: Female, 55 years old. Acute substernal chest pain RADIATION DOSAGE (If Supplied By Facility): CTDIvol = ( 6.47 ) mGy, DLP = ( 141.91 ) mGycm TECHNIQUE: The examination was performed with the intravenous administration of IV 75mL Isovue-370. Post-processing of the angiographic images was performed, with multiplanar reformation and 3D reconstruction. Individualized dose optimization techniques were used for this CT. COMPARISON: None. FINDINGS: Normal enhancement of the main pulmonary artery and right and left pulmonary arteries. Normal enhancement of the bilateral peripheral pulmonary arteries. There is no demonstrated pulmonary embolism. Normal thoracic aorta and visualized great vessels. There is no demonstrated aortic dissection. Normal heart and pericardium. Normal mediastinum. Normal hilar regions. There is peribronchial thickening. The lungs are hyper expanded, with flattening of the hemidiaphragms. Underlying emphysema with bleb formation throughout both lung petit, most notably in the upper lobes. Chronic interstitial changes noted in both lung petit without a superimposed pulmonary process. Normal pleura. Normal chest wall structures. There are degenerative changes of thoracic spine. Limited cuts through the upper abdomen show simple hepatic cysts. CT/CTA Chest W/WO Contrast IMPRESSION: No demonstrated PE, or thoracic aortic aneurysm or dissection Underlying emphysema without a superimposed acute pulmonary process Chronic bronchitis Electronically Signed: Reji Story MD at 22:31 EDT , Service support ,
[2021-03-12 21:22] VITALS: BP 157/88; PULSE 83; O2SAT 99
[2021-03-12 22:01] VITALS: BP 149/83; O2SAT 98
[2021-03-12 23:06] VITALS: BP 143/92; PULSE 73; RESP 16; O2SAT 99
== END 2021-03-12 23:12 | disposition home or self-care (01) ==
PROVIDERS: Emergency Provider Emergency Medicine; PCP Family Medicine
DX: R07.9 Chest pain, unspecified (principal); I10 Essential (primary) hypertension; J42 Unspecified chronic bronchitis; F17.200 Nicotine dependence, unspecified, uncomplicated; I25.10 Atherosclerotic heart disease of native coronary artery without angina pectoris; I25.5 Ischemic cardiomyopathy; I25.2 Old myocardial infarction; Z82.49 Family history of ischemic heart disease and other diseases of the circulatory system; J43.9 Emphysema, unspecified
CPT/HCPCS: 71275; 84484; 93005; 99285; J7030; Q9967; A4216

== ENCOUNTER → 2021-03-16 11:22 | Outpatient (CLI) | payer MEDICAID, SELFPAY ==
[2021-02-15 07:10] VITALS: BMI 19.8
[2021-03-12 20:40] VITALS: BMI 24.6
== END ==
PROVIDERS: PCP Family Medicine; Visit Provider Physician Assistant Medical
DX: R00.2 Palpitations (principal); I25.2 Old myocardial infarction; I25.10 Atherosclerotic heart disease of native coronary artery without angina pectoris; I25.5 Ischemic cardiomyopathy; Z95.5 Presence of coronary angioplasty implant and graft
CPT/HCPCS: 93225; 93226

== ENCOUNTER 2021-03-17 10:15 | Outpatient (RCR) | payer MEDICAID, SELFPAY ==
[2021-02-23 00:17] VITALS: BP 110/50; BP 140/78
--- NOTE | 2021-03-17 07:10 | CR.ITP_ITS ---
Exercise - 60-day Assessment - Visit Date of Eval: 03/17/21 Session #:: 21 Comments:: Patient has attended only 11 of 23 scheduled sessions and is at a 47.8 % compliance. - Physician Prescribed Exercise Modalities: Treadmill, Airdyne, NuStep Frequency: 3x/week for 12 weeks [36 sessions] Intensity: 60-80% of age predicted maximum heart rate reserve Current METSs:: 4.0 Target Heart Rate:: 107-141 Current RPE:: 14 Maximum Excercise HR:: 96 Resting Blood Pressure: 138/74 - elevated with medications Maximum Exercise Blood Pressure: 150/80 EKG Type: NSR to sinus tach w/PACs - Outcomes & Goals Goals:: Verbalizes understanding of THR, RPE & goal METS by session 6, Documents in home exercise log/reports 30 min aerobic 5 day/wk by DC, Demonstrates accurate pulse taking by DC - Intervention & Plan Exercise Program Goals: Instruct on personal THR & RPE, Instruct on MET level & personal MET goal, Show patient to take own pulse /validate performance until accurate, Instruct on home exercise - 30-day Reassessments 30 day Reassessments:: Not Met - Physical Activity Home Exercise Physical Activity - Home Exercise: Safe Exercise, Warm-up, Self-monitoring, Cool-Down, Home Exercise > 30 min Daily, Sitting Time <3 hours/daily - Outcomes & Goals Outcomes/Goals: Demonstrates correct Warm-up/exercise Cool-Down (S3) if = 2.5 METs, Verbalizes symptoms of exercise intolerance by Session 3 (S3), Demonstrate safe equipment use (S3) & follows exercise prescrition (6) - Intervention & Plan Plan/Intervention: Instruct warm-up & cool-down if exercising at > 2 METs, Instruct on symptoms of exercise intolerance & actions to take, Instruct & monitor on saf, Assess intial functional capacity & safety risk - 30-day Reassessments 30 day Reassessments:: Not Met Nutrition - 60-Day Assessment - Program Goals Nutrition Program Goals: LDL <100 optimal. 100 - 129 Near optimal. 130 - 159 Borderline High. 160 - 189 High. Total Cholesterol <200 desirable. 200 - 239 Borderline High. >/= 240 High. HDL < 40 Low >/=60 High. Triglycerides <150 desirable. <199 optimal. VlDL 5 - 40. HgbA1C <7%. BMI <25 Patient has diagnosis of Hyperlipidemia (ICD E78)?: Yes - Visit Date of Assessment:: 03/17/21 Session #:: 21 - Cholesterol/Lipids Determine presence & major risk factors that modify LDL goal: Cigarette smoking, Hypertension or hypertensive medication, Low HDL cholesterol <40 mg/dL*, Family history of premature CHD in Male < 55 years: female <65 yearsFa, Age men > 45 years; women >/= 55 years Outcomes/Goals: Pt IDs own risk factors & lifestyle modifications by Session 10, Verbalizes symptoms of angina & response by session 3., Pt independently manages Intervention/Plan: Instruct on personal lipid levels & lipid goals/NCEP guidelines, Instruct on cholesterol Referral to dietitian:: Yes - Medical Nutrition Therapy 30-day Reassessments:: Not Met - Diabetes (Other Core Measures) Diabetes Type: Not Applicable - Weight Mgt (Other Care) Not Applicable: Yes Height: 5 ft 6 in Weight:: 126 lb BMI: 20.3 Diagnosis Overweight/Obesity BMI> 30% ICD-10 E66: No Diagnosis High BMI/Morbid Obesity BMI> 35% ICD-10 Z68: No Outcomes/Goals: Pt sets, maintains & shows weight loss goal & trend during rehab Intervention/Plan: Instruct on ideal BMI & set weight loss goal w/patient - Healthy Eating Habits Will attend diet classes:: Yes Outcomes/Goals:: Consume diet rich in vegs,fruits,whole grain/high fiber,fish,lean meat, Limit sat/trans fats,cholesterol & added salts & sugars Intervention/Plan:: Assess current eating habits 30-day Reassessments:: Met Medical- 60-Day Assessment - Visit Date of Eval: 03/17/21 Session #:: 21 - Medication Compliance Preventative Medication(s):: Aspirin, Ticagrelor/P2Y12 inhibitor, Statin/lipid, Beta iban H/O mental health issues: depression, anxiety, or addiction?: Yes Doesn?t believe in the benefits of treatment?: No Believes medications are unnecessary or harmful?: No Has a concern about medication side effects?: No Expresses concern over the cost of medications?: No Outcomes/Goals: Verbalizes medications,desired effect & common side effects @ DC, Pt self-reports following medication regimen, Keeps card in wallet w/medications listed by DC Interventions/plans: Instruct on medication effects & side effects, Review medication list w/patient every two weeks, Instruct importance of taking meds as ordered & assist problem solving 30-day Reassessments:: Progressing - Tobacco Use Tobacco Use: Cigarettes How many cigarettes do you smoke per day?: 15 Years Smokin Do you use smokeless tobacco?: No Outcomes/Goals: Smoking cessation achieved or maintained by discharge, Identify aids/strategies for achieving smoking cessation by session 6 Interventions/plan: Instruct on effects of smoking & provide smoking cessation resource, Assist pt to set quit date & provide encouragement, Assist pt to develop strategies to achieve/maintain quit date, Assist pt w/nicotine replacement & medication for cessation success 30-day Reassessments:: Not Met Reassessment Notes & Comments:: Complete smoking cessation requires reinforcement. - Hypertension Hypertension Diagnosis:: Hypertension ICD-10 I10 Resting Blood Pressure:: 138/74 [place] [employer] Hypertension Guidelines: [place] [employer] Hypertension Guidelines. Normal BP Less than 120/80. Elevated BP 120/80. Hypertension Stage 1: BP 130-139/80-89. Hypertesnion Stage 2: BP 140 or higher/90 or higher. Hypertension Crisis: BP higher than 180/120 Peak Exercise Blood Pressure:: 150/80 Outcomes/Goals: Able to verbalize/achieve optimal blood pressure <130/80, Incorporates diet changes & exercise for blood pressure control by DC Interventions/plan: Instruct on optimal blood pressure, hypertension & medications, Instruct on effects of sodium, alcohol, stress, exercise &hypertension 30 day Reassessments:: Not Met - Tobacco Cessation Referral Smoking Cessation Referral:: Yes Individual Education/Counseling:: Yes Education Schedule Given:: Yes Psychosocial - 60-Day Assess - VIsit Date of Eval: 03/17/21 Session #:: 21 Not Applicable: No History of previous Mental disease:: Yes - Bipolar affective disorder, personality disorder History of Emotional Disorders: Anxious, Depression, Irrational Behavior - Target Goals Target Goals: Assess presence or absence of depression. Using a valid screening tool, maximizes coping skills. Positive support system - Psychosocial Test Tool Used:: PHQ-9 Questionnaire phq-9 Severity: Severity. 1-4 Minimal Depression. 5-9 Mild Depression. 10-14 Moderate Depression. 15-19 Moderately Sever Depression. 20-27 Severe Depressio n. Rule: - Referral to Behavioral Health PS - Interventions: Yes Attend Stress Management Classes, No Referral to Behavioral Health if PHQ-9 score >9:, No Referral to [facility], No Referral to Physician if PHQ-9 if score is 5-9: - Outcomes/Goals: See list Psychosocial Outcomes/Goals:: ID's personal stressors & 2 strategies to manage stress by discharge - Intervention/Plan: See List Interventions/Plan:: Assess stressors,coping strategies & signs of derpression o n admission, Instruct/assist pt to develop coping & personal stress Mgt strategies, Instruct patient to recognize signs & symptoms of depression, Instruct patient to recog - 30-day Reassessments: 30 day Reassessments:: Not Met Patient Health Questionnaire 60-Day Re-eval Assessment 1. Little interest or pleasure in doing things: Not at all 2. Feeling down, depressed, or hopeless: Nearly every day 3. Trouble falling or staying asleep, or sleeping too much: Several days 4. Feeling tired or having little energy: Nearly every day 5. Poor appetite or overeating: Not at all 6. Feeling bad about yourself -- or that you are a failure or have let yourself or your family down: More than half the days 7. Trouble concentrating on things, such as reading the newspaper or watching television: Several days 8. Moving or speaking so slowly that other people could have noticed. Or the opposite - being so fidgety or restless that you have been moving around a lot more than usual: Not at all 9. Thoughts that you would be better off , or of hurting yourself in some way: Not at all Total Score: 10 Self-Efficacy 60-Day Re-eval Assessment We would like to know how confident you are in doing certain activities. Please select your confidence level for:: Select your confidence level for the following using the scale 1-10 where 1 is not at all confident and 10 is totally confident. Your score is the average of all 6 responses. Fatigue: How confident are you that you can keep the fatigue caused by your disease from interfering with the things you want to do? Select Number: 4 Physical Discomfort or Pain: How confident are you that you can keep the physical discomfort or pain of your disease from interfering with the things you want to do? Select Number: 4 Emotional Distress: How confident are you that you can keep the emotional distress caused by your disease from interfering with the things you want to do? Select Number: 4 Other Symptoms or Health Problems: How confident are you that you can keep other symptoms or health problems from interfering with the things you want to do? Select Number: 5 Different Tasks and Activities: How confident are you that you can do the different tasks and activities needed to manage your health condition so as to reduce your need to see a doctor? Select Number: 5 Medication: How confident are you that you can do things other than just taking medication to reduce how much your illness affects your everyday life? Select Number: 6 Total Score:: 4
[2021-03-17 07:19] VITALS: BP 138/74; BP 150/80; BMI 20.3
== END 2021-03-24 23:59 ==
LOC: CR 10:15
PROVIDERS: PCP Family Medicine; Referring Provider Internal Medicine Cardiovascular Disease; Visit Provider Internal Medicine Cardiovascular Disease
DX: I25.10 Atherosclerotic heart disease of native coronary artery without angina pectoris (principal); Z95.5 Presence of coronary angioplasty implant and graft
CPT/HCPCS: 93798

== ENCOUNTER 2021-03-21 13:57 | Emergency (ER) | payer MEDICAID, SELFPAY ==
[2021-03-21 13:58] VITALS: BP 109/56; PULSE 67; RESP 16; TEMP 37.1; O2SAT 98; BMI 23.0
--- NOTE | 2021-03-21 14:10 | ED.DCSUM_ITS ---
HPI History of Present Illness Chief Complaint: Shortness of Breath Informant: patient Onset/Context/Timing Onset: Days Context: sudden Timing: Intermittent Current Severity: Mild Maximum Severity: Mild Worsened by: Nothing Relieved by: other (Taking certain cardiac medications.) Associated Symptoms Chest Pain: Positive for None Narrative Narrative: 55-year-old female history of anxiety and underlying cardiac disease. She had an WI in November and has one cardiac stent. Currently she is on Plavix. She believes when she takes her metoprolol daily within an hour she becomes short of breath. She denies any fever, chills or cough. No history of DVT or PE. No recent travel surgery or immobilization. She did have a negative CTA within the last month or so. She called her cardiology office and they wanted her to be evaluated. Stated she started getting anxious and having a panic attack and they wanted her evaluated for that also. PE Risk Factors: Negative for Cancer, Prior DVT or PE, Recent immobilization, Recent surgery and Recent travel Prior similar symptoms: Yes Recent Illness/Hospitalization: No PFSH PFS Medical History (Updated 03/21/21 @ 14:[address] 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) Home Medications metoprolol tartrate 25 mg tablet 12.5 mg PO BID #60 tablet 02/14/21 [Rx Last Taken Unknown] amlodipine 2.5 mg tablet 2.5 mg PO DAILY #30 tablet 02/20/21 [Rx Last Taken Unknown] buspirone 7.5 mg tablet tablet PO 02/24/21 [History Last Taken Unknown] lisinopril 10 mg tablet 10 mg PO DAILY #30 tablet 03/09/21 [Rx Last Taken Unknown] aspirin 81 mg tablet,delayed release 81 mg PO DAILY 03/20/21 [History Last Taken Unknown] clopidogrel 75 mg tablet 75 mg PO DAILY #90 tablet 03/20/21 [Rx Last Taken Unknown] famotidine 40 mg tablet 40 mg PO DAILY #30 tablet 03/20/21 [Rx Last Taken Unknown] Allergy/AdvReac Type Severity Reaction Status Date / Time morphine Allergy Hives Verified 03/21/21 13:57 citalopram [From Celexa] AdvReac Other Verified 03/21/21 13:57 venlafaxine [From Effexor] AdvReac Other Verified 03/21/21 13:57 Family History Father CAD (coronary artery disease) Myocardial infarction Surgical History (Updated 03/21/21 @ 14:36 by Jacey Yepez) History of coronary artery stent placement (12/18/20) History of left heart catheterization (01/25/21) Social History Smoking Status: Former smoker how long ago did patient quit smokin days ago alcohol intake: never substance use type: does not use caffeine: Yes Type: coffee Number of servings: 2 ROS ROS ED ROS Narrative Denies other complaints. Constitutional Constitutional ED: Denies chills, fever(s), sweats or weight loss Eyes Eyes: Denies blurry vision, change in vision or diplopia ENT ENT ED: Denies ear pain, rhinorrhea or sore throat Cardiovascular Cardiovascular: Reports palpitations; Denies chest pain, orthopnea, paroxysmal nocturnal dyspnea or racing heartbeat Respiratory/Chest Respiratory/Chest: Reports cough and dyspnea; Denies dyspnea on exertion, orthopnea, paroxysmal nocturnal dyspnea or sputum Gastrointestinal Gastrointestinal: Denies abdominal pain, constipation, diarrhea, melena, nausea, vomiting or other Genitourinary Genitourinary ED: Denies dysuria, hematuria, LMP (females 10-50), urinary frequency or other Musculoskeletal Musculoskeletal: Denies arthralgias, back pain, myalgias, neck pain or other Integumentary Denies abscess, Abrasions, rash or other Neurologic Neurologic: Denies headache(s), paresthesias, weakness or other Psychiatric Psychiatric: Reports anxiety; Denies depression, suicidal ideation or suicidal thoughts Endocrine Endocrinology: Denies polyuria Hematologic/Lymphatic Hematologic/Lymphatic: Denies easy bleeding, easy bruising or lymphadenopathy Allergic/Immunologic Allergic/Immunologic ED: Denies mouth swelling, tongue swelling, urticaria or other EXAM Physical Exam Const Vital Signs: 03/21/21 13:58 03/21/21 14:35 Temperature 98.8 F Temperature Source Temporal Pulse Rate 67 56 L Respiratory Rate 16 18 Respiratory Effort Short of Breath Respiratory Pattern Normal Blood Pressure 109/56 L Blood Pressure Mean 73 Pulse Ox 98 99 Oxygen Delivery Method Room Air Room Air HEENT Reports moist mucous membranes; Denies dry mucous membranes atraumatic Mouth ED: No dry mucous membranes Mouth: No dry mucous membranes Eyes PERRL and EOMs intact bilaterally General Eye ED: Negative for pale conjunctiva or scleral icterus Neck no lymphadenopathy, supple, no meningeal signs and no JVD Lymph Lymphatic: Negative for other Chest Wall Chest Narrative: Not tender. Chest: Negative for other Resp normal respiratory effort and clear to auscultation bilaterally Effort and Inspection: Negative for pain with movement Auscultation: Negative for rales, rhonchi, wheezes or diminished lung sounds Cardio regular rate, regular rhythm and no murmurs Rate: Negative for bradycardia or tachycardic GI non-tender, non-distended and no masses Auscultation: normoactive bowel sounds; Negative for hyperactive bowel sounds or hypoactive bowel sounds Palpation: soft; Negative for tender or rebound tenderness present Bladder / Kidney Exam: No other Back/Spine no CVA tenderness and normal to inspection General Back: Negative for CVA tenderness or tenderness Extremity normal to inspection General Extremety ED: Negative for edema or tenderness General Extremity: Negative for edema Neuro oriented x3 [place] Coma Scale: document GCS findings Sensorium / Orientation: alert, oriented to person, oriented to place and o riented to time; Negative for orientation impaired, confused or lethargic Motor Exam: Negative for general weakness Psych mental status grossly normal Attitude: No agitated Mood & Affect: anxious; Negative for depressed or tearful Thought Process: normal thought process Skin no wounds Lesions: no lesions Rashes: no rashes MDM MDM MDM Narrative Medical decision making narrative: Middle-aged female seems anxious more than anything else. Has a benign exam. She has significant cardiac history. Her current complaint however does not sound cardiac. Not exertional. She is really not having chest pain. After she takes medication she feels that she subjectively short of breath. Her exam is unremarkable. Lab Data Attestation: I reviewed the patient's lab results. Lab results narrative: Labs, EKG and chest x-ray were all unremarkable. Labs: Laboratory Results - last 24 hr 03/21/21 03/21/21 14:15 14:15 WBC 5.3 RBC 4.56 Hgb 13.3 Hct 40.0 MCV 87.7 MCH 29.2 MCHC 33.3 RDW Std Deviation 41.9 RDW Coeff of Dona 13.1 Plt Count 282 MPV 10.4 Immature Gran % (Auto) 0.200 Neut % (Auto) 35.3 L Lymph % (Auto) 55.5 H Pickett % (Auto) 5.8 Eos % (Auto) 2.1 Baso % (Auto) 1.1 H Absolute Neuts (auto) 1.9 L Absolute Lymphs (auto) 2.96 Nucleated RBC % 0 Sodium 135 L Potassium 3.9 Chloride 104 Carbon Dioxide 26.0 Anion Gap 5 BUN 9 Creatinine 0.68 Estim Creat Clear Calc 71.37 Est GFR (MDRD) Af Amer 115 Est GFR (MDRD) Non-Af 95 BUN/Creatinine Ratio 13.2 Glucose 94 Calcium 9.7 Troponin I < 0.015 Radiography Chest X-Ray - ED: 1 View, Read by ED Physician, Normal, Heart, Lungs, Mediastinum, Bony Structures, No Acute Disease and Chronic Changes Diagnostic Testing: Normal study. Myself shows no acute abnormality. Chronic changes. Normal cardiac silhouette and mediastinum. There is no infiltrate. No CHF no effusions. EKG Initial EKG: Attestation: I personally reviewed and interpreted this EKG as follows: (I interpreted the EKG is a sinus bradycardia with a rate of 55. No acute signs of WI or ischemia. No change in exam unchanged from prior EKG) Interpretation: Sinus Rhythm, No Acute Injury Pattern and Sinus Bradycardia Comments: Prior EKG was unchanged compared today. Prior EKG tracings: available for review Prior: Unchanged Treatment and Re-Evaluation Comments:: Repeat exam at 2:53 PM patient is doing well. No distress. Vital signs are stable. afebrile. Pulse ox is 99% on room air. Exam is unchanged. She and I went over all of her test results and she is comfortable being discharged to home. Discharge Plan Triage Chief Complaint: Shortness of Breath ED Provider: Yonas Guzman Dx/Rx/DC Orders Clinical Impression: Anxiety Instructions: ED Anxiety Reaction Prescriptions: No Action buspirone 7.5 mg tablet PO RF: 0 Hold Instructions: Per patient aspirin [Adult Low Dose Aspirin] 81 mg tablet,delayed release (DR/EC) 81 mg PO DAILY RF: 0 famotidine [Pepcid] 40 mg tablet 40 mg PO DAILY Qty: 30 RF: 12 clopidogrel [Plavix] 75 mg tablet 75 mg PO DAILY Qty: 90 RF: 3 metoprolol tartrate 25 mg tablet 12.5 mg PO BID Qty: 60 RF: 11 amlodipine 2.5 mg tablet 2.5 mg PO DAILY Qty: 30 RF: 11 lisinopril 10 mg tablet 10 mg PO DAILY Qty: 30 RF: 11 Primary Care Provider: Ellis Crandall Referrals: Ellis Crandall MD [Primary Care Provider] - As Needed
--- NOTE | 2021-03-21 14:18 | EKG12_ITS ---
Test Reason : SOB Blood Pressure : / mmHG Vent. Rate : 055 BPM Atrial Rate : 055 BPM P-R Int : 168 ms QRS Dur : 094 ms QT Int : 442 ms P-R-T Axes : 072 058 057 degrees QTc Int : 422 ms Sinus bradycardia Otherwise normal ECG When compared with ECG of 12-MAR-2021 21:16, No significant change was found Confirmed by JORJE KING, LEONIDES ([id number]), research editor FILI CASTILLO ([id number]) on 04/04/2021 8:55:42 AM Referred By: RENEE Confirmed By:LEONIDES RECINOS MD
--- NOTE | 2021-03-21 14:18 | RAD_ITS ---
STUDY: X-RAY CHEST REASON FOR EXAM: Female, 55 years old. Chest pain TECHNIQUE: Single AP portable view of the chest. COMPARISON: Comparison is made with prior study dated 03/09/2021. FINDINGS: EKG electrodes are seen. Hyperinflation. Decreased bronchovascular markings in both lungs suggestive of emphysematous change. There is no demonstrated pleural abnormality. Normal size heart. Normal mediastinum and kirsten. Normal visualized pulmonary arteries. Normal visualized aortic arch and descending thoracic aorta. Normal visualized thoracic spine. Normal visualized ribs, clavicles, and shoulders. There is no demonstrated abnormality of the visualized soft tissue structures of the upper abdomen. RAD/Chest 1 View (Portable) IMPRESSION: Hyperinflation. Electronically Signed: Darrell Wan MD at 14:58 EDT , Service support ,
[2021-03-21 14:26] LABS: Absolute Lymphocyte Count 2.96 X10^3/uL (0.83-4.51); Absolute Neutrophil Count 1.9 X10^3/uL (2.0-7.7); Basophil# 0.06 X10^3/uL; Basophil% 1.1 % (0-1); Eosinophil# 0.11 X10^3/uL; Eosinophils% 2.1 % (0-5); Hemoglobin 13.3 g/dL (12.0-15.0); Lymphocyte # 2.96 X10^3/ul (0.83-4.51); Lymphocyte % 55.5 % (19-41); Mean Corp Hgb Conc 33.3 g/dL (32-36); Mean Corpuscular Hgb 29.2 pg (27.0-32.0); Mean Corpuscular Volume 87.7 fL (81-99); Mean Platelet Vol. 10.4 fl (6.2-12.0); Monocyte# 0.31 X10^3/uL; Monocyte% 5.8 % (0-10); NRBC Flagged by Analyzer 0 % (0-5); Neutrophil # 1.88 X10^3/uL (2.7-7.7); Neutrophil % 35.3 % (47-70); Platelet Count 282 K/mm3 (150-450); RBC Distribution Width CV 13.1 % (11.6-14.6); RBC Distribution Width SD 41.9 fl (35.1-43.9); Red Blood Count 4.56 M/mm3 (4.2-5.4); White Blood Count 5.3 K/mm3 (4.4-11.0)
[2021-03-21 14:35] VITALS: PULSE 56; RESP 18; O2SAT 99
[2021-03-21 14:44] LABS: Anion Gap 5 (5-15); BUN 9 mg/dL (7-18); BUN/Creat Ratio 13.2 RATIO (10-20); Calcium,Total 9.7 mg/dL (8.5-10.1); Chloride 104 mmol/L (98-107); Creatinine, Serum 0.68 mg/dL (0.55-1.02); EST Glomerular Filtration Rate 95 mL/min (>60); Est Glom Filt Rate - Afr Amer 115 mL/min (>60); Estimated Creatinine Clearance 71.37 ml/min; Glucose 94 mg/dL (74-106); Potassium 3.9 mmol/L (3.5-5.1); Sodium Level 135 mmol/L (136-145)
[2021-03-21 15:08] VITALS: PULSE 56; RESP 14; O2SAT 99
== END 2021-03-21 15:09 | disposition home or self-care (01) ==
LOC: ED 15:03
PROVIDERS: Emergency Provider Emergency Medicine; PCP Family Medicine
DX: F41.9 Anxiety disorder, unspecified (principal); I25.10 Atherosclerotic heart disease of native coronary artery without angina pectoris; F60.3 Borderline personality disorder; K21.9 Gastro-esophageal reflux disease without esophagitis; I25.2 Old myocardial infarction; I10 Essential (primary) hypertension; I25.5 Ischemic cardiomyopathy; Z79.02 Long term (current) use of antithrombotics/antiplatelets; Z79.82 Long term (current) use of aspirin; Z79.899 Other long term (current) drug therapy; Z87.891 Personal history of nicotine dependence; Z95.5 Presence of coronary angioplasty implant and graft
CPT/HCPCS: 71045; 80048; 84484; 85025; 93005; 99284

== ENCOUNTER 2021-03-23 13:28 | Emergency (ER) | payer MEDICAID, SELFPAY ==
[2021-03-23 13:29] VITALS: BP 161/90; PULSE 69; RESP 18; TEMP 36.6; O2SAT 100; BMI 23.8
--- NOTE | 2021-03-23 13:30 | EKG12_ITS ---
Test Reason : CP Blood Pressure : / mmHG Vent. Rate : 060 BPM Atrial Rate : 060 BPM P-R Int : 140 ms QRS Dur : 092 ms QT Int : 394 ms P-R-T Axes : 071 054 028 degrees QTc Int : 394 ms Normal sinus rhythm Normal ECG Confirmed by GLEN KING, JOE ([id number]), state editor FILI CASTILLO ([id number]) on 03/27/2021 10:14:04 AM Referred By: VERN Confirmed By:JOE CARROLL MD
--- NOTE | 2021-03-23 14:44 | EDS_ITS ---
HPI History of Present Illness Chief Complaint: Chest Pain Narrative Patient presents with chest pain. This is chronic and recurrent, I have seen her for this. She is also complaining of significant distress and anxiety. She has no fever or chills the chest pain started after getting home earlier today, she is describing episodes of 1 to 2 seconds of sharp stabbing pain in her left breast. This pain does not radiate into her back she has no pleuritic component she has no tearing sensation she has no lower extremity edema. She has no fever or chills. Past medical history: Reviewed at bedside and in the computer system Medications: Reviewed in the system and at bedside Social history: Noncontributory Review of systems: All systems negative except as indicated General: No fever Eyes: No visual changes ENT: No upper airway congestion, normal voice Neck: No neck pain Cardiovascular: Chest pain as in HPI Respiratory: No shortness of breath or cough Gastrointestinal: No abdominal pain, nausea vomiting or diarrhea Genitourinary: No dysuria Musculoskeletal: Denies myalgias no difficulty with ambulation Skin: No rash Neurological: No memory loss, confusion or any focal weakness Psych: Anxiety. Hematologic: No easy bleeding or easy bruising [facility] Medical History (Updated 03/23/21 @ 15:[address] 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) Shortness of breath Home Medications amlodipine 2.5 mg tablet 2.5 mg PO DAILY #30 tablet 02/20/21 [Rx Last Taken Unknown] buspirone 7.5 mg tablet 7.5 tablet PO DAILY 02/24/21 [History Last Taken Unknown] lisinopril 10 mg tablet 10 mg PO DAILY #30 tablet 03/09/21 [Rx Last Taken Unknown] aspirin 81 mg tablet,delayed release 81 mg PO DAILY 03/20/21 [History Last Taken Unknown] clopidogrel 75 mg tablet 75 mg PO DAILY #90 tablet 03/20/21 [Rx Last Taken Unknown] famotidine 40 mg tablet 40 mg PO DAILY #30 tablet 03/20/21 [Rx Last Taken Unknown] metoprolol succinate 25 mg tablet,extended release 24 hr 25 mg PO DAILY #30 tab 03/22/21 [Rx Last Taken Unknown] Allergy/AdvReac Type Severity Reaction Status Date / Time morphine Allergy Hives Verified 03/23/21 13:31 citalopram [From Celexa] AdvReac Other Verified 03/23/21 13:31 venlafaxine [From Effexor] AdvReac Other Verified 03/23/21 13:31 Family History Father CAD (coronary artery disease) Myocardial infarction Surgical History History of coronary artery stent placement (12/18/20) History of left heart catheterization (01/25/21) Social History Smoking Status: Former smoker how long ago did patient quit smokin days ago alcohol intake: never substance use type: does not use caffeine: Yes Type: coffee Number of servings: 2 EXAM Physical Exam Narrative Exam Narrative: Physical exam General: Well nourished, Well developed, No Acute Distress Head: Normocephalic, Atraumatic Eyes: Conjunctiva not pale ENT: Moist mucous membranes Neck: Supple, Nontender, No lymphadenopathy Cardiovascular: Regular rate, Regular rhythm Respiratory: No distress, CTA bilaterally Abdomen: Soft, Nontender, Nondistended Back: Nontender, Normal Inspection. Negative for: CVA tenderness Extremities: Nontender, No edema Skin: Normal color, No rash Neurological: Alert, Normal Strength, Normal Sensation Psychological: Somewhat anxious appearing Const Vital Signs: 03/23/21 13:29 03/23/21 14:20 Temperature 97.8 F Temperature Source Temporal Pulse Rate 69 Respiratory Rate 18 Respiratory Pattern Normal Blood Pressure 161/90 H Blood Pressure Mean 113 Pulse Ox 100 Oxygen Delivery Method Room Air MDM MDM MDM Narrative Medical decision making narrative: Patient has a normal troponin. She does have a history of cardiac disease but she also has a history of multiple episodes of chest pain. This chest pain is lasting 1 to 2 seconds it is sharp and stabbing and it goes away on its own, she has an unremarkable EKG and troponin I do believe she is stable for discharge. If anything changes she is to return. Lab Data Labs: Laboratory Results - last 24 hr 03/23/21 13:40 Troponin I < 0.015 Discharge Plan Triage Chief Complaint: Chest Pain ED Provider: Ismael Moran Dx/Rx/DC Orders Clinical Impression: Chest pain Instructions: ED Chest Pain, Noncardiac, ED Chest Pain, Uncertain Cause Prescriptions: No Action buspirone 7.5 mg tablet 7.5 tablet PO DAILY RF: 0 Hold Instructions: Per patient aspirin [Adult Low Dose Aspirin] 81 mg tablet,delayed release (DR/EC) 81 mg PO DAILY RF: 0 famotidine [Pepcid] 40 mg tablet 40 mg PO DAILY Qty: 30 RF: 12 clopidogrel [Plavix] 75 mg tablet 75 mg PO DAILY Qty: 90 RF: 3 amlodipine 2.5 mg tablet 2.5 mg PO DAILY Qty: 30 RF: 11 lisinopril 10 mg tablet 10 mg PO DAILY Qty: 30 RF: 11 metoprolol succinate 25 mg tablet extended release 24 hr 25 mg PO DAILY Qty: 30 RF: 11 Primary Care Provider: Ellis Crandall Referrals: Ellis Crandall MD [Primary Care Provider] - 3-5 Days Disposition Disposition: Home, self care
[2021-03-23] MEDS: LORazepam 0.5 MG Tablet PO (15:06)
[2021-03-23 16:15] VITALS: BP 142/90; PULSE 53; RESP 18; O2SAT 100
== END 2021-03-23 16:16 | disposition home or self-care (01) ==
PROVIDERS: Emergency Provider Emergency Medicine; PCP Family Medicine
DX: R07.9 Chest pain, unspecified (principal); F41.9 Anxiety disorder, unspecified; Z79.82 Long term (current) use of aspirin; Z79.899 Other long term (current) drug therapy; Z87.891 Personal history of nicotine dependence; I25.10 Atherosclerotic heart disease of native coronary artery without angina pectoris; F60.3 Borderline personality disorder; J44.9 Chronic obstructive pulmonary disease, unspecified; F31.9 Bipolar disorder, unspecified; I25.2 Old myocardial infarction; K21.9 Gastro-esophageal reflux disease without esophagitis; I10 Essential (primary) hypertension; I25.5 Ischemic cardiomyopathy
CPT/HCPCS: 84484; 93005; 99282

== ENCOUNTER 2021-03-26 17:14 | Emergency (ER) | payer MEDICAID, SELFPAY ==
[2021-03-26 17:15] VITALS: BP 155/73; PULSE 88; RESP 20; TEMP 36.9; O2SAT 100; BMI 24.5
--- NOTE | 2021-03-26 17:44 | RAD_ITS ---
INDICATION: Chest pain EXAMINATION/TECHNIQUE: X-RAY - XR Chest 1 View COMPARISON: 03/21/2021. FINDINGS: Hyperinflated lungs with chronic lung changes. Tortuous and calcified thoracic aorta. The heart is not enlarged. No pleural effusion or pneumothorax. No acute osseous abnormalities. RAD/Chest 1 View (Portable) IMPRESSION: No acute radiographic abnormalities. COPD. Electronically Signed: Nj Jensen MD at 18:24 EDT Tel , Service support ,
--- NOTE | 2021-03-26 17:44 | EKG12_ITS ---
Test Reason : CP Blood Pressure : / mmHG Vent. Rate : 085 BPM Atrial Rate : 085 BPM P-R Int : 146 ms QRS Dur : 096 ms QT Int : 356 ms P-R-T Axes : 066 062 059 degrees QTc Int : 423 ms Sinus rhythm with Premature atrial complexes Otherwise normal ECG Confirmed by GLEN KING, JOE ([id number]), editor house organ FILI CASTILLO ([id number]) on 03/29/2021 8:51:00 AM Referred By: STARR Confirmed By:JOE CARROLL MD
--- NOTE | 2021-03-26 17:45 | CT_ITS ---
STUDY: CT ABDOMEN AND PELVIS WITHOUT CONTRAST REASON FOR EXAM: Female, 55 years old. Abdominal pain blood in stool RADIATION DOSAGE (If Supplied By Facility): CTDIvol = ( 6.27 ) mGy, DLP = ( 281.76 ) mGycm TECHNIQUE: Transaxial images were obtained from the dome of the diaphragm to the symphysis pubis without oral contrast, and without intravenous contrast. Sagittal and coronal images were reconstructed. Individualized dose optimization techniques were used for this CT. COMPARISON: None. FINDINGS: Examination is technically limited due to lack of IV contrast. Lung bases are severely emphysematous. Coronary arteries are diseased with stents in the RCA. There are multiple hepatic rounded hypodense lesions, presumed cysts.. Normal gallbladder and extrahepatic biliary system. Normal spleen. Normal pancreas. Normal bilateral adrenal glands. Normal right kidney. Normal left kidney. There is no intestinal obstruction. Appendix is not seen. Normal abdominal aorta. Normal inferior vena cava. Normal retroperitoneum. Normal urinary bladder. Normal abdominal wall. Normal osseous structures. There is an incidental right flank lipoma. CT/Abdomen/Pel W ORAL Cont Only IMPRESSION: No acute abdominal disease. Electronically Signed: Melissa Contreras MD at 20:01 EDT Tel , Service support ,
[2021-03-26 18:02] LABS: Absolute Lymphocyte Count 2.67 X10^3/uL (0.83-4.51); Absolute Neutrophil Count 3.2 X10^3/uL (2.0-7.7); Basophil# 0.06 X10^3/uL; Basophil% 0.9 % (0-1); Eosinophil# 0.12 X10^3/uL; Eosinophils% 1.9 % (0-5); Hematocrit 37.3 % (37-47); Hemoglobin 12.4 g/dL (12.0-15.0); Lymphocyte # 2.67 X10^3/ul (0.83-4.51); Lymphocyte % 41.7 % (19-41); Mean Corp Hgb Conc 33.2 g/dL (32-36); Mean Corpuscular Hgb 29.1 pg (27.0-32.0); Mean Corpuscular Volume 87.6 fL (81-99); Mean Platelet Vol. 10.6 fl (6.2-12.0); Monocyte# 0.37 X10^3/uL; Monocyte% 5.8 % (0-10); NRBC Flagged by Analyzer 0 % (0-5); Neutrophil # 3.16 X10^3/uL (2.7-7.7); Neutrophil % 49.4 % (47-70); Platelet Count 246 K/mm3 (150-450); RBC Distribution Width SD 41.4 fl (35.1-43.9); Red Blood Count 4.26 M/mm3 (4.2-5.4); White Blood Count 6.4 K/mm3 (4.4-11.0)
[2021-03-26 18:22] LABS: International Normalized Ratio 1.1; Prothrombin Time (Protime)PT. 13.5 SECONDS (11.7-14.9)
[2021-03-26 18:24] LABS: Partial Thromboplast Time 34.1 Seconds (24.1-36.2)
[2021-03-26 18:28] LABS: ALB/GLOB Ratio 1.2 RATIO (0.9-2.4); AST(SGOT) 15 U/L (15-37); Alanine Aminotransfer ALT/SGPT 20 U/L (13-56); Albumin, Serum 3.8 g/dL (3.2-5.0); Alkaline Phosphatase 57 U/L (45-117); Anion Gap 8 (5-15); BUN 9 mg/dL (7-18); BUN/Creat Ratio 11.6 RATIO (10-20); Calcium,Total 8.9 mg/dL (8.5-10.1); Chloride 98 mmol/L (98-107); Creatinine, Serum 0.77 mg/dL (0.55-1.02); EST Glomerular Filtration Rate 82 mL/min (>60); Est Glom Filt Rate - Afr Amer 100 mL/min (>60); Estimated Creatinine Clearance 63.03 ml/min; Globulin 3.2 g/dL (2.2-4.2); Glucose 104 mg/dL (74-106); Potassium 3.6 mmol/L (3.5-5.1); Sodium Level 129 mmol/L (136-145)
[2021-03-26 18:49] LABS: Bacteria 0 SEEN /hpf (None Seen); Mucous, Urine 0 SEEN /hpf (<or=2+); Red Blood Cells-Urine 0 SEEN /hpf (0-5); Squamous Epithelial Cells - UA 0 SEEN /hpf (5-10); White Blood Cells 0 SEEN /hpf (0-5)
[2021-03-26 18:59] LABS: Color, Urine Straw (Yellow); Glucose, Dipstick Normal (Normal); Ketone-Dipstick Negative (Negative); Leukocyte Esterase-Dipstick Negative /ul (Negative); Nitrite-Dipstick Negative (Negative); Occult Blood-Urine 10 /ul (Negative); Protein-Dipstick Negative (Negative); Urine Bilirubin Dipstick Negative (Negative); Urine Clarity Clear (Clear); Urine Urobilinogen Normal (Normal)
--- NOTE | 2021-03-26 19:26 | ED.VIS.CHEST ---
HPI History of Present Illness Chief Complaint: Chest Pain Informant: patient Onset/Context/Timing Onset: Today Activity at onset: gradual Timing: Intermittent and Lasts (Few minutes) Quality: Positive for Tightness Location: Right Chest and Left Chest Worsened By: Nothing Relieved By: - (Activity) Associated Symptoms: Positive for Lightheadedness, Acid Reflux and Palpitations; Negative for Nausea, Vomiting, Diaphoresis, Dyspnea, Cough and Fever Narrative Narrative: Patient presents with chest pain that began today. Patient states it is gradually gotten worse throughout the day. Patient describes it as a tightness. Patient states it is diffuse across her chest. Patient states nothing makes it worse. Patient states that improves with activity. Patient admits to some lightheadedness. Patient also admits to some palpitations and acid reflux. Patient is on Plavix. Patient states that today when she had a bowel movement she noted some blood when she wiped. CVD Risk Factors: Positive for Hypertension PE Risk Factors: Negative for Recent Travel/Surgery, Recent Immobilization, Prior DVT or PE, Cancer and OCP + Smoking + >/=35 PFSH PFS Medical History (Updated 03/26/21 @ 21:[address] 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) Shortness of breath Home Medications buspirone 7.5 mg tablet 7.5 tablet PO DAILY 02/24/21 [History Last Taken Unknown] lisinopril 10 mg tablet 10 mg PO DAILY #30 tablet 03/09/21 [Rx Last Taken Unknown] aspirin 81 mg tablet,delayed release 81 mg PO DAILY 03/20/21 [History Last Taken Unknown] clopidogrel 75 mg tablet 75 mg PO DAILY #90 tablet 03/20/21 [Rx Last Taken Unknown] famotidine 40 mg tablet 40 mg PO DAILY #30 tablet 03/20/21 [Rx Last Taken Unknown] metoprolol succinate 25 mg tablet,extended release 24 hr 25 mg PO DAILY #30 tab 03/22/21 [Rx Last Taken Unknown] Allergy/AdvReac Type Severity Reaction Status Date / Time morphine Allergy Hives Verified 03/26/21 17:19 amlodipine AdvReac Intermediate chest Verified 03/26/21 17:19 pain and cannot breathe citalopram [From Celexa] AdvReac NAUSEATED Verified 03/26/21 17:19 AND IRRITABLE venlafaxine [From Effexor] AdvReac DIDN'T Verified 03/26/21 17:19 WORK Family History Father CAD (coronary artery disease) Myocardial infarction Surgical History (Updated 03/26/21 @ 19:[address] Sincere Burroughs, DO) H/O section History of coronary artery stent placement (12/18/20) History of left heart catheterization (01/25/21) Social History Smoking Status: Former smoker how long ago did patient quit smokin days ago alcohol intake: never substance use type: does not use caffeine: Yes Type: coffee Number of servings: 2 ROS ROS ED Constitutional Constitutional ED: Denies chills or fever(s) Eyes Eyes: Denies blurry vision or change in vision ENT ENT ED: Denies rhinorrhea or sore throat Cardiovascular Cardiovascular: Reports chest pain, palpitations and racing heartbeat Respiratory/Chest Respiratory/Chest: Denies cough or dyspnea Gastrointestinal Gastrointestinal: Denies nausea or vomiting Genitourinary Genitourinary ED: Reports dysuria; Denies hematuria Musculoskeletal Musculoskeletal: Reports back pain and neck pain Integumentary Reports rash Neurologic Neurologic: Reports weakness; Denies paresthesias Allergic/Immunologic Allergic/Immunologic ED: Denies mouth swelling or urticaria EXAM Physical Exam Const Vital Signs: 03/26/21 17:15 03/26/21 17:20 Temperature 98.4 F Temperature Source Oral Pulse Rate 88 Respiratory Rate 20 H Respiratory Effort Normal Non-Labored Blood Pressure 155/73 H Blood Pressure Mean 100 Pulse Ox 100 Oxygen Delivery Method Room Air Positive well nourished and well developed General Appearance ED: well developed HEENT Reports moist mucous membranes normocephalic Neck supple and no JVD Resp normal respiratory effort Effort and Inspection: respiratory distress Cardio regular rate and regular rhythm GI normal to inspection, nondistended, normoactive bowel sounds and soft to palpation GI Narrative: There is some left lower quadrant tenderness. There is no rebound or guarding noted. Neuro oriented x3, CN's II-XII intact bilaterally and no sensory deficits noted Sensorium / Orientation: awake and alert Motor Exam: strength 5/5 throughout Heart Score History: Slightly/Non-Suspicious ECG: Nonspecific Repolarization Age: >45 - <65 years Risk Factors: 1 or 2 Risk Factors Troponin: </= Normal Limit Score: 3 MDM MDM MDM Narrative Medical decision making narrative: EKG was obtained. On my interpretation, there is normal sinus rhythm with occasional PACs with a rate of 85. [place] interval, QRS normal, QTc interval within normal limits. [place] was normal. There are no acute ST or T wave changes. Portable 1 view chest x-ray was obtained. On my interpretation, lung petit are clear. There is normal cardiac silhouette. Bony thorax is normal. There is no acute process noted. Radiologist also interpreted the x-ray and agrees. CBC, comprehensive metabolic profile, troponin, PT with INR, and PTT were all within normal limits. Urinalysis was obtained. There is no evidence of urinary tract infection. CT scan of the abdomen pelvis was obtained for possible diverticulitis. There is no acute intra-abdominal process noted. This was interpreted by the radiologist and reviewed by myself. Patient was feeling better on reevaluation. Patient was advised of the findings. Patient has a HEART score of 3. Patient was advised that this is low risk for acute cardiac event. Patient was instructed to follow-up with her primary care physician in 5 to 7 days. Patient understood and was agreeable with the plan. All questions were answered. Lab Data Attestation: I reviewed the patient's lab results. Labs: Laboratory Results - last 24 hr 03/26/21 03/26/21 03/26/21 17:20 17:20 17:20 WBC 6.4 RBC 4.26 Hgb 12.4 Hct 37.3 MCV 87.6 MCH 29.1 MCHC 33.2 RDW Std Deviation 41.4 RDW Coeff of Dona 13.0 Plt Count 246 MPV 10.6 Immature Gran % (Auto) 0.300 Neut % (Auto) 49.4 Lymph % (Auto) 41.7 H [place] % (Auto) 5.8 Eos % (Auto) 1.9 Baso % (Auto) 0.9 Absolute Neuts (auto) 3.2 Absolute Lymphs (auto) 2.67 Nucleated RBC % 0 PT 13.5 INR 1.1 APTT 34.1 Sodium 129 L Potassium 3.6 Chloride 98 Carbon Dioxide 23.0 Anion Gap 8 BUN 9 Creatinine 0.77 Estim Creat Clear Calc 63.03 Est GFR (MDRD) Af Amer 100 Est GFR (MDRD) Non-Af 82 BUN/Creatinine Ratio 11.6 Glucose 104 Calcium 8.9 Total Bilirubin 0.30 AST 15 ALT 20 Alkaline Phosphatase 57 Troponin I < 0.015 Total Protein 7.0 Albumin 3.8 Globulin 3.2 Albumin/Globulin Ratio 1.2 Urine Color Urine Clarity Urine pH Ur Specific [place] Urine Protein Urine Glucose (UA) Urine Ketones Urine Occult Blood Urine Nitrite Urine Bilirubin Urine Urobilinogen Ur Leukocyte Esterase Urine RBC Urine WBC Ur Squamous Epith Cells Urine Bacteria Urine Mucus 03/26/21 18:43 WBC RBC Hgb Hct MCV MCH MCHC RDW Std Deviation RDW Coeff of Dona Plt Count MPV Immature Gran % (Auto) Neut % (Auto) Lymph % (Auto) [place] % (Auto) Eos % (Auto) Baso % (Auto) Absolute Neuts (auto) Absolute Lymphs (auto) Nucleated RBC % PT INR APTT Sodium Potassium Chloride Carbon Dioxide Anion Gap BUN Creatinine Estim Creat Clear Calc Est GFR (MDRD) Af Amer Est GFR (MDRD) Non-Af BUN/Creatinine Ratio Glucose Calcium Total Bilirubin AST ALT Alkaline Phosphatase Troponin I Total Protein Albumin Globulin Albumin/Globulin Ratio Urine Color Straw Urine Clarity Clear Urine pH 7.0 Ur Specific [place] 1.010 Urine Protein Negative Urine Glucose (UA) Normal Urine Ketones Negative Urine Occult Blood 10 H Urine Nitrite Negative Urine Bilirubin Negative Urine Urobilinogen Normal Ur Leukocyte Esterase Negative Urine RBC 0 SEEN Urine WBC 0 SEEN Ur Squamous Epith Cells 0 SEEN Urine Bacteria 0 SEEN Urine Mucus 0 SEEN Radiography Chest X-Ray - ED: 1 View, Read by ED Physician, Read by Radiologist and Normal Diagnostic Testing: Radiology Impression Chest X-Ray 03/26/21 17:44 IMPRESSION: No acute radiographic abnormalities. COPD. Electronically Signed: Nj Jensen MD at 18:24 EDT Tel , Service support , Abdomen CT 03/26/21 17:45 IMPRESSION: No acute abdominal disease. Electronically Signed: Melissa Contreras MD at 20:01 EDT Tel , Service support , EKG Initial EKG: Attestation: I personally reviewed and interpreted this EKG as follows: Interpretation: Sinus Rhythm (85 with occasional PACs), No Acute Injury Pattern and Non-Specific ST Changes Discharge Plan Triage Chief Complaint: Chest Pain ED Provider: Sincere Burroughs Dx/Rx/DC Orders Clinical Impression: Chest pain, Abdominal pain Instructions: ED Abdominal Pain Unkn Cause Fem, ED Chest Pain, Uncertain Cause Prescriptions: No Action buspirone 7.5 mg tablet 7.5 tablet PO DAILY RF: 0 Hold Instructions: Per patient aspirin [Adult Low Dose Aspirin] 81 mg tablet,delayed release (DR/EC) 81 mg PO DAILY RF: 0 famotidine [Pepcid] 40 mg tablet 40 mg PO DAILY Qty: 30 RF: 12 clopidogrel [Plavix] 75 mg tablet 75 mg PO DAILY Qty: 90 RF: 3 lisinopril 10 mg tablet 10 mg PO DAILY Qty: 30 RF: 11 metoprolol succinate 25 mg tablet extended release 24 hr 25 mg PO DAILY Qty: 30 RF: 11 Primary Care Provider: Ellis Crandall Referrals: Ellis Crandall MD [Primary Care Provider] - 3-5 Days Disposition Disposition: Home, self care
[2021-03-26 22:04] VITALS: BP 150/84; PULSE 65; RESP 16; O2SAT 95
== END 2021-03-26 22:09 | disposition home or self-care (01) ==
PROVIDERS: Emergency Provider Emergency Medicine; PCP Family Medicine
DX: R07.9 Chest pain, unspecified (principal); R10.9 Unspecified abdominal pain; J44.9 Chronic obstructive pulmonary disease, unspecified; Z87.891 Personal history of nicotine dependence; Z95.5 Presence of coronary angioplasty implant and graft; Z82.49 Family history of ischemic heart disease and other diseases of the circulatory system; I10 Essential (primary) hypertension; I25.2 Old myocardial infarction; I25.10 Atherosclerotic heart disease of native coronary artery without angina pectoris; F60.3 Borderline personality disorder; I25.5 Ischemic cardiomyopathy; K21.9 Gastro-esophageal reflux disease without esophagitis; Z79.82 Long term (current) use of aspirin; Z79.899 Other long term (current) drug therapy
CPT/HCPCS: 71045; 74176; 80053; 81001; 84484; 85025; 85610; 85730; 93005; 99285; A4216

== ENCOUNTER 2021-03-28 19:25 | Emergency (ER) | payer MEDICAID, SELFPAY ==
[2021-03-28 19:26] VITALS: BP 134/115; PULSE 77; RESP 16; TEMP 36.4; O2SAT 98; BMI 23.8
--- NOTE | 2021-03-28 19:29 | EKG12_ITS ---
Test Reason : CP Blood Pressure : / mmHG Vent. Rate : 073 BPM Atrial Rate : 073 BPM P-R Int : 146 ms QRS Dur : 100 ms QT Int : 378 ms P-R-T Axes : 071 066 063 degrees QTc Int : 416 ms Normal sinus rhythm Nonspecific ST abnormality Abnormal ECG Confirmed by JORJE KING, LEONIDES ([id number]), clinical editor FILI CASTILLO ([id number]) on 03/29/2021 9:30:02 AM Referred By: JEIMY/RENEE Confirmed By:LEONIDES RECINOS MD
[2021-03-28 19:40] VITALS: PULSE 77
--- NOTE | 2021-03-28 19:44 | EDS_ITS ---
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) Shortness of breath Home Medications buspirone 7.5 mg tablet 7.5 tablet PO DAILY 02/24/21 [History Last Taken Unknown] aspirin 81 mg tablet,delayed release 81 mg PO DAILY 03/20/21 [History Last Taken Unknown] clopidogrel 75 mg tablet 75 mg PO DAILY #90 tablet 03/20/21 [Rx Last Taken Unknown] famotidine 40 mg tablet 40 mg PO DAILY #30 tablet 03/20/21 [Rx Last Taken Unknown] metoprolol succinate 25 mg tablet,extended release 24 hr 25 mg PO DAILY #30 tab 03/22/21 [Rx Last Taken Unknown] lisinopril 10 mg tablet 5 mg PO DAILY #30 tab 03/27/21 [Rx Last Taken Unknown] Allergy/AdvReac Type Severity Reaction Status Date / Time morphine Allergy Hives Verified 03/26/21 17:19 amlodipine AdvReac Intermediate chest Verified 03/26/21 17:19 pain and cannot breathe citalopram [From Celexa] AdvReac NAUSEATED Verified 03/26/21 17:19 AND IRRITABLE venlafaxine [From Effexor] AdvReac DIDN'T Verified 03/26/21 17:19 WORK Family History Father CAD (coronary artery disease) Myocardial infarction Surgical History H/O section History of coronary artery stent placement (12/18/20) History of left heart catheterization (01/25/21) Social History Smoking Status: Former smoker how long ago did patient quit smokin days ago alcohol intake: never substance use type: does not use caffeine: Yes Type: coffee Number of servings: 2 ROS ROS ED ROS Narrative No recent illness. Review of Systems ROS Unobtainable: Denies due to encephalopathy Constitutional Constitutional ED: Denies fever(s) Eyes Eyes: Denies change in vision ENT ENT ED: Denies ear pain or sore throat Cardiovascular Cardiovascular: Reports chest pain, palpitations and racing heartbeat Respiratory/Chest Respiratory/Chest: Denies cough, dyspnea or sputum Gastrointestinal Gastrointestinal: Denies abdominal pain, nausea or vomiting Genitourinary Genitourinary ED: Denies dysuria or hematuria Musculoskeletal Musculoskeletal: Denies arthralgias or myalgias Integumentary Denies abscess or rash Neurologic Neurologic: Denies headache(s) Psychiatric Psychiatric: Reports anxiety; Denies depression Endocrine Endocrinology: Denies polyuria Allergic/Immunologic Allergic/Immunologic ED: Denies urticaria EXAM Physical Exam Narrative Exam Narrative: Middle-aged female vital signs are stable afebrile. Has had multiple recent evaluations in the emergency department and in the hospital with a recent cardiac catheterization earlier this year. She has a known cardiac stent. Patient complains of palpitations. She is very anxious. Const Vital Signs: 03/28/21 19:26 03/28/21 19:40 03/28/21 19:41 Temperature 97.5 F L Temperature Source Temporal Pulse Rate 77 77 Respiratory Rate 16 Respiratory Effort Normal Non-Labored Blood Pressure 134/115 H Blood Pressure Mean 121 Pulse Ox 98 Oxygen Delivery Method Room Air HEENT Negative for trauma or tenderness Eyes PERRL and EOMs intact bilaterally Neck no lymphadenopathy, supple and no JVD Chest Wall inspection of chest normal Resp normal respiratory effort Cardio regular rate, regular rhythm and no murmurs Rate: Negative for bradycardia or tachycardic GI normal to inspection, nondistended, normoactive bowel sounds, non-tender and non-distended Auscultation: normoactive bowel sounds Palpation: soft Back/Spine no CVA tenderness Extremity normal to inspection General Extremety ED: Negative for edema or tenderness General Extremity: Negative for edema Neuro oriented x3 Sensorium / Orientation: alert Motor Exam: strength 5/5 throughout Psych mental status grossly normal Mood & Affect: anxious Skin no rashes or lesions noted and no wounds MDM MDM MDM Narrative Medical decision making narrative: Patient had multiple recent evaluations for similar symptoms of palpitation. She is had recent medication changes. Her exam today is unremarkable. Her heart rate currently is in the 70s. I do not think she needs further evaluation with her most recent evaluations. Lab Data Attestation: I reviewed the patient's lab results. EKG Initial EKG: Attestation: I personally reviewed and interpreted this EKG as follows: Interpretation: Sinus Rhythm and No Acute Injury Pattern Treatment and Re-Evaluation Comments:: Normal sinus rhythm rate of 73. No acute signs of dysrhythmia, nor accelerated heart rate nor MA nor ischemia. Discharge Plan Triage Chief Complaint: Chest Pain ED Provider: Yonas Guzman Dx/Rx/DC Orders Clinical Impression: Chest pain, Anxiety Instructions: ED Anxiety Reaction Prescriptions: No Action buspirone 7.5 mg tablet 7.5 tablet PO DAILY RF: 0 Hold Instructions: Per patient aspirin [Adult Low Dose Aspirin] 81 mg tablet,delayed release (DR/EC) 81 mg PO DAILY RF: 0 famotidine [Pepcid] 40 mg tablet 40 mg PO DAILY Qty: 30 RF: 12 clopidogrel [Plavix] 75 mg tablet 75 mg PO DAILY Qty: 90 RF: 3 metoprolol succinate 25 mg tablet extended release 24 hr 25 mg PO DAILY Qty: 30 RF: 11 lisinopril 10 mg tablet 5 mg PO DAILY Qty: 30 RF: 11 Primary Care Provider: Ellis Crandall Referrals: Ellis Crandall MD [Primary Care Provider] - 3-5 Days Activity Restrictions/Additional Instructions: Your physical exam is normal today. Your heart rate is normal in the 70s. Your EKG is normal. I think most of this is related to anxiety. And follow-up with your primary care physician. Disposition Disposition: Home, self care
[2021-03-28] MEDS: LORazepam 1 MG Tablet PO (20:06)
[2021-03-28 20:07] VITALS: BP 128/55; PULSE 74; RESP 16; O2SAT 99
== END 2021-03-28 20:11 | disposition home or self-care (01) ==
LOC: ED 19:58
PROVIDERS: Emergency Provider Emergency Medicine; PCP Family Medicine
DX: R07.9 Chest pain, unspecified (principal); F41.9 Anxiety disorder, unspecified; I25.10 Atherosclerotic heart disease of native coronary artery without angina pectoris; J44.9 Chronic obstructive pulmonary disease, unspecified; K21.9 Gastro-esophageal reflux disease without esophagitis; I25.5 Ischemic cardiomyopathy; I25.2 Old myocardial infarction; I10 Essential (primary) hypertension; F31.9 Bipolar disorder, unspecified; F60.3 Borderline personality disorder; Z79.82 Long term (current) use of aspirin; Z87.891 Personal history of nicotine dependence
CPT/HCPCS: 93005; 99284; A4216

== ENCOUNTER → 2021-03-31 08:12 | Outpatient (CLI) | payer MEDICAID, SELFPAY ==
[2021-03-17 07:19] VITALS: BMI 20.3
[2021-03-21 13:58] VITALS: BMI 23.0
[2021-03-30 06:40] VITALS: BMI 23.6
--- NOTE | 2021-03-31 08:16 | RAD_ITS ---
STUDY: AIR CONTRAST UPPER GI SERIES REASON FOR EXAM: Female, 55 years old. HEARTBURN. History of reflux. Chest tightness. FLUOROSCOPY TIME (if supplied): (38 seconds) minutes/seconds. 17 images were obtained. TECHNIQUE: SINGLE CONTRAST AND AIR CONTRAST FLUOROSCOPIC IMAGES. COMPARISON: None. FINDINGS: The cervical esophagus demonstrates normal motility without aspiration. There is no stricture or extrinsic mass effect. No intraluminal polypoid mass is identified. The thoracic esophagus distends well without stricture or mucosal fold thickening. No mucosal ulcerations are identified. There is no extrinsic mass effect. There are no diverticula. No hiatal hernia or gastroesophageal reflux was identified. The stomach distends well without mucosal fold thickening or mucosal ulceration. There is no intraluminal mass. The duodenal bulb is freely distensible without deformity or ulceration. The duodenal sweep is normal in position and caliber. RAD/Upper GI Dual Contrast IMPRESSION: Normal air-contrast upper GI series. Electronically Signed: Darrell Wan MD at 13:04 EDT , Service support ,
== END ==
PROVIDERS: PCP Family Medicine; Referring Provider Nurse Practitioner; Visit Provider Nurse Practitioner
DX: R12 Heartburn (principal)
CPT/HCPCS: 74246

== ENCOUNTER 2021-04-06 11:38 | Emergency (ER) | payer MEDICAID, SELFPAY ==
[2021-03-30 06:40] VITALS: BMI 23.6
[2021-04-06] VITALS (8 sets, daily range): BP systolic 119–162; BP diastolic 74–96; PULSE 54–69; RESP 12–22; TEMP 36.4; O2SAT 98–100; BMI 23.8
--- NOTE | 2021-04-06 11:56 | RAD_ITS ---
STUDY: X-RAY CHEST REASON FOR EXAM: Female, 55 years old. Chest pain TECHNIQUE: Single frontal view of the chest. COMPARISON: 03/26/21. FINDINGS: Cardiac silhouette unremarkable. Pulmonary vascularity unremarkable. Aorta unremarkable. No focal airspace opacities. No pleural effusions. Upper abdomen unremarkable. Osseous structures intact. No pneumothorax. RAD/Chest 1 View (Portable) IMPRESSION: No acute cardiopulmonary process identified. Electronically Signed: Farnklin Bragg MD at 12:54 EDT Tel , Service support ,
--- NOTE | 2021-04-06 11:56 | EKG12_ITS ---
Test Reason : CP Blood Pressure : / mmHG Vent. Rate : 063 BPM Atrial Rate : 063 BPM P-R Int : 144 ms QRS Dur : 090 ms QT Int : 394 ms P-R-T Axes : 060 071 053 degrees QTc Int : 403 ms Normal sinus rhythm Normal ECG Confirmed by GLEN KING, JOE ([id number]), book editor FILI CASTILLO ([id number]) on 04/10/2021 2:51:52 PM Referred By: Confirmed By:JOE CARROLL MD
[2021-04-06] MEDS: diazePAM 5 MG Tablet PO (12:18)
[2021-04-06] MEDS: Aspirin 81 MG TAB.CHEW 324 MG PO (12:18)
[2021-04-06 12:24] LABS: Anion Gap 7 (5-15); BUN 10 mg/dL (7-18); BUN/Creat Ratio 12.6 RATIO (10-20); Calcium,Total 9.4 mg/dL (8.5-10.1); Chloride 101 mmol/L (98-107); EST Glomerular Filtration Rate 80 mL/min (>60); Est Glom Filt Rate - Afr Amer 97 mL/min (>60); Estimated Creatinine Clearance 60.66 ml/min; Glucose 88 mg/dL (74-106); Potassium 4.4 mmol/L (3.5-5.1); Sodium Level 134 mmol/L (136-145)
[2021-04-06 12:35] LABS: Absolute Lymphocyte Count 2.43 X10^3/uL (0.83-4.51); Absolute Neutrophil Count 2.8 X10^3/uL (2.0-7.7); Basophil# 0.07 X10^3/uL; Basophil% 1.2 % (0-1); Eosinophil# 0.18 X10^3/uL; Hematocrit 39.2 % (37-47); Lymphocyte # 2.43 X10^3/ul (0.83-4.51); Mean Corp Hgb Conc 33.2 g/dL (32-36); Mean Corpuscular Hgb 29.3 pg (27.0-32.0); Mean Corpuscular Volume 88.5 fL (81-99); Mean Platelet Vol. 10.2 fl (6.2-12.0); Monocyte# 0.48 X10^3/uL; Monocyte% 8.1 % (0-10); NRBC Flagged by Analyzer 0 % (0-5); Neutrophil # 2.75 X10^3/uL (2.7-7.7); Neutrophil % 46.5 % (47-70); Platelet Count 256 K/mm3 (150-450); RBC Distribution Width CV 13.3 % (11.6-14.6); RBC Distribution Width SD 43.5 fl (35.1-43.9); Red Blood Count 4.43 M/mm3 (4.2-5.4); White Blood Count 5.9 K/mm3 (4.4-11.0)
[2021-04-06 12:46] LABS: D-Dimer Quantitative (DVT/PE) <= 0.27 FEU/ug/m (0.27-0.49)
--- NOTE | 2021-04-06 13:00 | EDS_ITS ---
HPI History of Present Illness Chief Complaint: Chest Pain Informant: patient Narrative Narrative: 55-year-old female, presenting with back pain, chest pain, anxiety. Patient has had similar symptoms intermittently since having a STEMI in November. She had a stent placed at that time. She had a cardiac cath in December to evaluate patency of the stent. She states she started having back pain and chest pain today. She feels she is now having a panic attack. She has associated shortness of breath. Denies fever. Denies other complaints. 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) Shortness of breath Home Medications aspirin 81 mg tablet,delayed release 81 mg PO DAILY 03/20/21 [History Last Taken Unknown] clopidogrel 75 mg tablet 75 mg PO DAILY #90 tablet 03/20/21 [Rx Last Taken Unknown] carvedilol 6.25 mg tablet 6.25 mg PO BID 04/06/21 [History Last Taken Unknown] lansoprazole 30 mg capsule,delayed release 30 mg PO DAILY 04/06/21 [History Last Taken Unknown] metoprolol succinate 12.5 mg PO BID 04/06/21 [History Last Taken Unknown] Allergy/AdvReac Type Severity Reaction Status Date / Time morphine Allergy Hives Verified 04/06/21 11:39 amlodipine AdvReac Intermediate chest Verified 04/06/21 11:39 pain and cannot breathe citalopram [From Celexa] AdvReac NAUSEATED Verified 04/06/21 11:39 AND IRRITABLE lisinopril AdvReac SOB, chest Verified 04/06/21 11:39 tightness,throat closing venlafaxine [From Effexor] AdvReac DIDN'T Verified 04/06/21 11:39 WORK Family History Father CAD (coronary artery disease) Myocardial infarction Surgical History H/O section History of coronary artery stent placement (12/18/20) History of left heart catheterization (01/25/21) Social History (Updated 03/30/21 @ 13:41 by Riri Nava) Smoking Status: Former smoker quit date: 01/23/21 pack-years: 30 how long ago did patient quit smokin days ago alcohol intake: never substance use type: does not use caffeine: Yes Type: coffee Number of servings: 2 ROS ROS ED Constitutional Constitutional ED: Denies fever(s) Eyes Eyes: Denies change in vision ENT ENT ED: Denies rhinorrhea or sore throat Cardiovascular Cardiovascular: Reports chest pain and palpitations Respiratory/Chest Respiratory/Chest: Reports dyspnea; Denies cough Gastrointestinal Gastrointestinal: Denies abdominal pain, diarrhea, nausea or vomiting Genitourinary Genitourinary ED: Denies dysuria Musculoskeletal Musculoskeletal: Reports back pain Integumentary Denies rash Neurologic Neurologic: Denies headache(s) Psychiatric Psychiatric: Reports anxiety EXAM Physical Exam Const Vital Signs: 04/06/21 11:39 04/06/21 11:45 04/06/21 11:56 Temperature 97.6 F L Temperature Source Temporal Pulse Rate 68 Respiratory Rate 22 H Respiratory Effort Normal Non-Labored Respiratory Pattern Normal Blood Pressure 162/83 H Blood Pressure Mean 109 Pulse Ox 100 98 Oxygen Delivery Method Room Air Room Air 04/06/21 12:52 04/06/21 13:59 04/06/21 14:10 Temperature Temperature Source Pulse Rate 69 65 65 Respiratory Rate 15 15 22 H Respiratory Effort Respiratory Pattern Blood Pressure 145/81 H 155/96 H Blood Pressure Mean 102 115 Pulse Ox 98 100 100 Oxygen Delivery Method Room Air Room Air Room Air 04/06/21 15:05 04/06/21 16:17 Temperature Temperature Source Pulse Rate 54 L 56 L Respiratory Rate 12 18 Respiratory Effort Respiratory Pattern Blood Pressure 144/74 H 119/83 H Blood Pressure Mean 97 95 Pulse Ox 100 100 Oxygen Delivery Method Room Air Room Air Positive well nourished and well developed General Appearance ED: well developed HEENT Reports normocephalic and head/scalp atraumatic Eyes PERRL and EOMs intact bilaterally Neck supple General: Negative for tenderness Chest Wall inspection of chest normal Resp normal respiratory effort and clear to auscultation bilaterally Cardio regular rate and regular rhythm GI non-tender and non-distended Palpation: soft; Negative for guarding or rebound tenderness present no CVA tenderness Back/Spine Back/Spine Narrative: Left paraspinal thoracic muscle tenderness, no midline tenderness Thoracic Spine / Upper Back: paraspinal muscle tenderness Extremity normal to inspection Neuro oriented x3 Sensorium / Orientation: alert Motor Exam: strength 5/5 throughout Psych mental status grossly normal Skin no rashes or lesions noted MDM MDM MDM Narrative Medical decision making narrative: Patient was given aspirin, Valium. Labs are unremarkable. Delta troponin is negative. Patient continues to have pain and was given Dilaudid, Ativan and Toradol. Due to her continued pain CTA chest will be obtained and is pending. This will be checked out to the oncoming physician. Lab Data Attestation: I reviewed the patient's lab results. Labs: Laboratory Results - last 24 hr 04/06/21 04/06/21 04/06/21 11:40 11:40 11:40 WBC Cancelled Corrected WBC Cancelled RBC Cancelled Hgb Cancelled Hct Cancelled MCV Cancelled MCH Cancelled MCHC Cancelled RDW Std Deviation Cancelled RDW Coeff of Dona Cancelled Plt Count Cancelled MPV Cancelled Immature Gran % (Auto) Cancelled Neut % (Auto) Cancelled Lymph % (Auto) Cancelled [place] % (Auto) Cancelled Eos % (Auto) Cancelled Baso % (Auto) Cancelled Absolute Neuts (auto) Cancelled Absolute Lymphs (auto) Cancelled Total Counted Cancelled Neutrophils % (Manual) Cancelled Band Neutrophils % Cancelled Lymphocytes % (Manual) Cancelled Monocytes % (Manual) Cancelled Eosinophils % (Manual) Cancelled Basophils % (Manual) Cancelled Metamyelocytes % Cancelled Myelocytes % Cancelled Promyelocytes % Cancelled Blast Cells % Cancelled Plasma Cell % (Manual) Cancelled Other Cells % Cancelled Nucleated RBC % Cancelled Nucleated RBCs/100 WBC Cancelled Differential Comment Cancelled Diff Path Review Cancelled Hypersegmented Neuts Cancelled Atypical Lymphocytes Cancelled Reactive Lymphocytes Cancelled Smudge Cells Cancelled Toxic Granulation Cancelled Toxic Vacuolation Cancelled Dohle Bodies Cancelled [place] Cancelled Platelet Estimate Cancelled Plt Morphology Comment Cancelled RBC Morphology Cancelled Polychromasia Cancelled Hypochromasia Cancelled Poikilocytosis Cancelled Basophilic Stippling Cancelled Anisocytosis Cancelled Microcytosis Cancelled Macrocytosis Cancelled Spherocytes Cancelled Sickle Cells Cancelled Target Cells Cancelled Tear Drop Cells Cancelled Ovalocytes Cancelled Stomatocytes Cancelled [place] Bodies Cancelled [place] Cells Cancelled Bite Cells Cancelled Crenated Cell Cancelled Acanthocytes (Spur) Cancelled Rouleaux Cancelled Schistocytes Cancelled D-Dimer Quant (PE/DVT) Cancelled Sodium 134 L Potassium 4.4 Chloride 101 Carbon Dioxide 26.0 Anion Gap 7 BUN 10 Creatinine 0.80 Estim Creat Clear Calc 60.66 Est GFR (MDRD) Af Amer 97 Est GFR (MDRD) Non-Af 80 BUN/Creatinine Ratio 12.6 Glucose 88 Calcium 9.4 Troponin I < 0.015 04/06/21 04/06/21 04/06/21 12:24 12:24 14:35 WBC 5.9 Corrected WBC RBC 4.43 Hgb 13.0 Hct 39.2 MCV 88.5 MCH 29.3 MCHC 33.2 RDW Std Deviation 43.5 RDW Coeff of Dona 13.3 Plt Count 256 MPV 10.2 Immature Gran % (Auto) 0.200 Neut % (Auto) 46.5 L Lymph % (Auto) 41.0 [place] % (Auto) 8.1 Eos % (Auto) 3.0 Baso % (Auto) 1.2 H Absolute Neuts (auto) 2.8 Absolute Lymphs (auto) 2.43 Total Counted Neutrophils % (Manual) Band Neutrophils % Lymphocytes % (Manual) Monocytes % (Manual) Eosinophils % (Manual) Basophils % (Manual) Metamyelocytes % Myelocytes % Promyelocytes % Blast Cells % Plasma Cell % (Manual) Other Cells % Nucleated RBC % 0 Nucleated RBCs/100 WBC Differential Comment Diff Path Review Hypersegmented Neuts Atypical Lymphocytes Reactive Lymphocytes Smudge Cells Toxic Granulation Toxic Vacuolation Dohle Bodies [place] Platelet Estimate Plt Morphology Comment RBC Morphology Polychromasia Hypochromasia Poikilocytosis Basophilic Stippling Anisocytosis Microcytosis Macrocytosis Spherocytes Sickle Cells Target Cells Tear Drop Cells Ovalocytes Stomatocytes [place] Bodies Julio Cells Bite Cells Crenated Cell Acanthocytes (Spur) Rouleaux Schistocytes D-Dimer Quant (PE/DVT) <= 0.27 Sodium Potassium Chloride Carbon Dioxide Anion Gap BUN Creatinine Estim Creat Clear Calc Est GFR (MDRD) Af Amer Est GFR (MDRD) Non-Af BUN/Creatinine Ratio Glucose Calcium Troponin I < 0.015 Radiography Chest X-Ray - ED: 1 View, Read by ED Physician and Read by Radiologist Diagnostic Testing: Radiology Impression Chest X-Ray 04/06/21 11:56 IMPRESSION: No acute cardiopulmonary process identified. Electronically Signed: Franklin Bragg MD at 12:54 EDT Tel , Service support , EKG Initial EKG: Attestation: I personally reviewed and interpreted this EKG as follows: Interpretation: Sinus Rhythm and No Acute Injury Pattern Discharge Plan Triage Chief Complaint: Chest Pain ED Provider: Daphnie Phillips Dx/Rx/DC Orders Clinical Impression: Chest pain Prescriptions: No Action aspirin [Adult Low Dose Aspirin] 81 mg tablet,delayed release (DR/EC) 81 mg PO DAILY RF: 0 clopidogrel [Plavix] 75 mg tablet 75 mg PO DAILY Qty: 90 RF: 3 [id number] [Trelegy Ellipta] 100-62.5-25 mcg blister with device 1 inh inhalation DAILY RF: 0 metoprolol succinate 25 mg tablet extended release 24 hr 12.5 mg PO BID RF: 0 carvedilol 6.25 mg tablet 6.25 mg PO BID RF: 0 lansoprazole [Prevacid] 30 mg capsule,delayed release(DR/EC) 30 mg PO DAILY RF: 0 Primary Care Provider: Ellis Crandall Referrals: Ellis Crandall MD [Primary Care Provider] -
[2021-04-06] MEDS: HYDROmorphone 0.5 MG/0.5 ML SYRINGE IV (14:02)
[2021-04-06] MEDS: LORazepam 1 MG Tablet PO (16:28)
[2021-04-06] MEDS: Ketorolac 15 MG/ML Vial IV (16:28)
--- NOTE | 2021-04-06 17:03 | ED.RN ---
explained to pt that she had option to get CT to check for blood clot. pt states she didn't want to have another larger IV needed to do IV when CT went to use IV it hurt too bad, pt states she didn't want to do CT becuase of this and just wanted to go home. This RN told physician and pt is now leaving AMA.
== END 2021-04-06 17:02 | disposition left against medical advice (07) ==
PROVIDERS: Emergency Medicine; Emergency Provider Emergency Medicine; PCP Family Medicine
DX: R07.9 Chest pain, unspecified (principal); M54.9 Dorsalgia, unspecified; Z87.891 Personal history of nicotine dependence; Z82.49 Family history of ischemic heart disease and other diseases of the circulatory system; Z95.5 Presence of coronary angioplasty implant and graft; F41.9 Anxiety disorder, unspecified; F60.3 Borderline personality disorder; I10 Essential (primary) hypertension; I25.10 Atherosclerotic heart disease of native coronary artery without angina pectoris; I25.5 Ischemic cardiomyopathy; J44.9 Chronic obstructive pulmonary disease, unspecified; K21.9 Gastro-esophageal reflux disease without esophagitis; I25.2 Old myocardial infarction; Z79.82 Long term (current) use of aspirin; Z79.899 Other long term (current) drug therapy
CPT/HCPCS: 71045; 80048; 84484; 85025; 85379; 93005; 96374; 96375; 99285; A4216

== ENCOUNTER → 2021-04-19 10:45 | Outpatient (CLI) | payer MEDICAID, SELFPAY ==
[2021-03-30 06:40] VITALS: BMI 23.6
[2021-04-06 11:39] VITALS: BMI 23.8
--- NOTE | 2021-04-19 13:55 | PFTCOMP ---
COMPLETE PULMONARY FUNCTION TEST INTERPRETATION Brief HPI: Patient is a 55 year old female, currently under the care of myself, who presents to [facility] for complete pulmonary function tests secondary to diagnosis of COPD. Respiratory therapist reports good effort and reproducible results. Interpretation: Forced expiration spirometry shows a mild large airways obstructive ventilatory defect with an FEV1 of 79% predicted. There is a significant bronchodilator response in FVC by strict ATS criteria. Spirograms are of good quality and plateau slowly, indicating slowly emptying areas of the lungs. The respiratory flow volume loop shows decreased expiratory flow rates at all lung volumes consistent with airway obstruction. Lung volumes by body plethysmography show an elevated total lung capacity at 5.38 L, 124% predicted. All other lung volumes are increased symmetrically. Diffusion capacity by carbon monoxide is at the lower limit of normal at 68% predicted. The airway resistance is elevated. No previous pulmonary function tests were available for review. Impression: Partially reversible mild large airways obstructive ventilatory defect with a symmetric reduction diffusion capacity
== END ==
PROVIDERS: PCP Family Medicine; Referring Provider Internal Medicine Critical Care Medicine; Visit Provider Internal Medicine Critical Care Medicine
DX: J44.9 Chronic obstructive pulmonary disease, unspecified (principal)
CPT/HCPCS: 94060; 94726; 94729

== ENCOUNTER → 2021-04-20 13:39 | Outpatient (CLI) | payer MEDICAID, SELFPAY ==
[2021-03-30 06:40] VITALS: BMI 23.6
[2021-04-06 11:39] VITALS: BMI 23.8
[2021-04-20 13:45] VITALS: PULSE 77; PULSE 81; PULSE 87; PULSE 90; PULSE 91; PULSE 92; PULSE 93; PULSE 96; O2SAT 93; O2SAT 95; O2SAT 96; O2SAT 97; O2SAT 98
--- NOTE | 2021-04-20 15:02 | PCM.PSN.6M ---
PSN 6 Minute Walk Test 6 Minute Walk Test 6 Minute Walk Test: 6 Minute Walk Test PSN:6-Minute Walk Test Start: 04/20/21 13:56 Freq: Status: Active Protocol: [id number] Document 04/20/21 13:45 (Rec: 04/20/21 13:59 [id number]) 6 Minute Walk Test Date Performed 04/20/21 Time Performed 13:45 Height 5 ft 2 in Weight: 55.792 kg Weight in Pounds 123.[address]: Mariano Jain FIO2 (% Oxygen) 21 Assistive device used: None Pre-test Oxygen Delivery Method Room Air Pulse Ox (%) 97 Pulse Rate (60-100 beats/min) 81 Dyspnea Lynn Scale (0-10) 0 Exertion Lynn Scale (6-20) 6 1st minute Oxygen Delivery Method Room Air Pulse Ox (%) 97 Pulse Rate (60-100 beats/min) 87 2nd minute Oxygen Delivery Method Room Air Pulse Ox (%) 93 Pulse Rate (60-100 beats/min) 96 3rd minute Oxygen Delivery Method Room Air Pulse Ox (%) 96 Pulse Rate (60-100 beats/min) 90 4th minute Oxygen Delivery Method Room Air Pulse Ox (%) 96 Pulse Rate (60-100 beats/min) 93 5th minute Oxygen Delivery Method Room Air Pulse Ox (%) 95 Pulse Rate (60-100 beats/min) 92 6th minute Oxygen Delivery Method Room Air Pulse Ox (%) 96 Pulse Rate (60-100 beats/min) 91 Post-test Oxygen Delivery Method Room Air Pulse Ox (%) 98 Pulse Rate (60-100 beats/min) 77 Dyspnea Lynn Scale (0-10) 2 Exertion Lynn Scale (6-20) 13 Full Laps Walked 17 Partial Lap, Number of Tiles Walked 20 Total Distance Walked (ft) 1023 Interpretation Interpretation: The patient was able to ambulate 1023 feet over the course of 6 minutes on room air with no assistive devices or breaks. The patient did experience significant desaturation from a baseline of 97% to as low as 93%. No significant tachycardia was noted. These findings are consistent with a respiratory limitation exercise tolerance. Recommendations Recommendations: No supplemental oxygen is indicated at this time. However, patient will need to be followed closely given level of desaturation.
== END ==
PROVIDERS: PCP Family Medicine; Referring Provider Internal Medicine Critical Care Medicine; Visit Provider Internal Medicine Critical Care Medicine
DX: J44.9 Chronic obstructive pulmonary disease, unspecified (principal)
CPT/HCPCS: 94618

== ENCOUNTER 2021-04-21 09:57 | Emergency (ER) | payer MEDICAID, SELFPAY ==
[2021-04-06 11:39] VITALS: BMI 23.8
[2021-04-21 09:58] VITALS: BP 190/109; PULSE 81; RESP 16; TEMP 36.4; O2SAT 100; BMI 22.4
[2021-04-21 10:07] VITALS: BP 203/100; PULSE 89; RESP 18; O2SAT 98
--- NOTE | 2021-04-21 10:16 | EDS_ITS ---
HPI History of Present Illness Chief Complaint: Headache Informant: patient Onset/Context/Timing Onset: Today and Hours Context: Sudden Timing: Continuous Quality -Headache: Positive for Throbbing Location: Bifrontal Current Severity: Moderate Maximum Severity: Severe Worsened by: Nothing Relieved by: Nothing Associated Symptoms/Injury Associated Symptoms: Positive for - (Denies association with change in position. Denies neck pain or neck stiffness. Denies trouble with speech or swallowing or any neurologic symptoms); Negative for Fever, Nausea, Vomiting, Sore Throat, Sinus Pressure, Numbness, Tingling, Preceding Aura, Visual Changes, Blurred Vision, Photophobia and Visual Loss Injury - ACE: Negative for Direct Trauma Narrative Narrative: Patient is a 55-year-old woman who was prescribed ranolazine to treat her chronic angina. She was instructed to discontinue the metoprolol. She states this morning when she awoke she had a by frontal throbbing headache. She states last evening her blood pressure was elevated 180 systolic. She states her blood pressure is. But never been that high. She denies double vision, blurred vision or change in vision. She denies photophobia. She denies rhinorrhea, congestion postnasal drainage. She denies sore throat. Denies trouble with speech or swallowing. She denies ringing in ears, decreased hearing or ear pain. She denies neck pain or neck stiffness. She states her chest discomfort that is been present for the last 3 days is markedly better. Her last cardiac catheterization was December and all vessels were open. She denies shortness of breath. She denies nausea, vomiting diarrhea. She denies dysuria, frequency, urgency or hematuria. She denies problems with balance or walking. 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) Shortness of breath Home Medications aspirin 81 mg tablet,delayed release 81 mg PO DAILY 03/20/21 [History Last Taken Unknown] clopidogrel 75 mg tablet 75 mg PO DAILY #90 tablet 03/20/21 [Rx Last Taken Unknown] famotidine 40 mg tablet 40 mg PO DAILY 04/07/21 [History Last Taken Unknown] ranolazine 500 mg tablet,extended release,12 hr 500 mg PO BID #60 tab 04/20/21 [Rx Last Taken Unknown] alprazolam 0.5 mg PO BID PRN 7 Days #14 tab 04/21/21 [Rx Last Taken Unknown] diltiazem HCl 120 mg capsule,extended release 24 hr 120 mg PO DAILY #1 cap 04/21/21 [Rx Last Taken Unknown] Allergy/AdvReac Type Severity Reaction Status Date / Time morphine Allergy Hives Verified 04/21/21 10:00 amlodipine AdvReac Intermediate chest Verified 04/21/21 10:00 pain and cannot breathe carvedilol [From Coreg] AdvReac Intermediate throat Verified 04/21/21 10:00 closing up and chest pressure citalopram [From Celexa] AdvReac NAUSEATED Verified 04/21/21 10:00 AND IRRITABLE lisinopril AdvReac SOB, chest Verified 04/21/21 10:00 tightness,throat closing venlafaxine [From Effexor] AdvReac DIDN'T Verified 04/21/21 10:00 WORK Family History Father CAD (coronary artery disease) Myocardial infarction Surgical History H/O section History of coronary artery stent placement (12/18/20) History of left heart catheterization (01/25/21) Social History (Updated 04/21/21 @ 10:[address] Omar Mcdonald MD) household members: none Smoking Status: Former smoker quit date: 01/23/21 pack-years: 30 how long ago did patient quit smokin days ago alcohol intake: never substance use type: does not use caffeine: Yes Type: coffee Number of servings: 2 ROS ROS ED Constitutional Constitutional ED: Denies chills, fever(s), subjective or sweats Eyes Eyes: Denies blurry vision, change in vision, diplopia or other ENT ENT ED: Denies ear pain, rhinorrhea or sore throat Cardiovascular Cardiovascular: Reports chest pain and orthopnea; Denies palpitations, paroxysmal nocturnal dyspnea or racing heartbeat Respiratory/Chest Respiratory/Chest: Reports orthopnea; Denies cough, dyspnea, dyspnea on exertion, paroxysmal nocturnal dyspnea or sputum Gastrointestinal Gastrointestinal: Denies abdominal pain, constipation, diarrhea, nausea or vomiting Genitourinary Genitourinary ED: Denies dysuria, hematuria or urinary frequency Musculoskeletal Musculoskeletal: Denies arthralgias, back pain, myalgias or neck pain Integumentary Denies abscess, Abrasions or rash Neurologic Neurologic: Reports headache(s); Denies paresthesias or weakness Endocrine Endocrinology: Denies polydipsia, polyphagia or polyuria Hematologic/Lymphatic Hematologic/Lymphatic: Denies easy bleeding or easy bruising EXAM Physical Exam Const Vital Signs: 04/21/21 09:58 04/21/21 10:07 Temperature 97.5 F L Temperature Source Temporal Pulse Rate 81 89 Respiratory Rate 16 18 Blood Pressure 190/109 H 203/100 H Blood Pressure Mean 136 134 Pulse Ox 100 98 Oxygen Delivery Method Room Air Room Air Positive well nourished and well developed General Appearance ED: well developed and NAD HEENT Reports normocephalic and TM's clear HEENT Narrative: Nares patent no discharge. Negative for temporal artery tenderness or vesicular rash Face and Sinus: Negative for sinus tenderness Tympanic Membrane ED: Yes TM's clear Eyes PERRL and EOMs intact bilaterally General Eye ED: Negative for pale conjunctiva or scleral icterus Neck no lymphadenopathy, supple, no meningeal signs and no JVD General: other There are no carotid bruits noted. Resp normal respiratory effort and clear to auscultation bilaterally Cardio regular rate, regular rhythm, S1 normal heart sound, S2 normal heart sound and no murmurs GI non-tender and non-distended Auscultation: normoactive bowel sounds Palpation: soft Back/Spine no CVA tenderness Extremity normal to inspection, full ROM and normal capillary refill Neuro oriented x3 and CN's II-XII intact bilaterally Neuro Narrative: Babinski sign negative bilaterally and no clonus bilaterally. Sensorium / Orientation: awake and alert Coordination / Balance: [id number] test normal Gait (Neuro): normal gait Motor Exam: strength 5/5 throughout Psych mental status grossly normal Skin Lesions: no lesions Rashes: no rashes Nails: normal MDM MDM MDM Narrative Medical decision making narrative: Suspect headache is due to new medication since it is a common side effect. Her blood pressure is markedly elevated. Will obtain blood work to assess for endorgan injury. I was informed during dictation pad patient has increased chest pain. Will obtain an EKG. Furthermore will review most recent ER visits and cath report. Case was discussed with Dr. Muñiz on-call for Dr. Lopez. He was made aware of patient. Dr. Lopez nurse practitioner called me back. She states she was prescribed diltiazem but was hesitant to take the diltiazem. She states she is also supposed to be on Ativan somewhat however, her primary care physician will not prescribe and recommends counseling. Plan is to have patient resume her diltiazem 120 mg extended release and a short course of Ativan was prescribed. Lab Data Attestation: I reviewed the patient's lab results. Lab results narrative: Basic metabolic panel is unremarkable no evidence of endorgan injury. Troponin is normal with 72 hours of pain. Urinalysis unremarkable with no proteinuria or hematuria. Labs: Laboratory Results - last 24 hr 04/21/21 04/21/21 10:20 10:38 Sodium 137 Potassium 4.1 Chloride 107 Carbon Dioxide 24.0 Anion Gap 6 BUN 7 Creatinine 0.70 Estim Creat Clear Calc 72.66 Est GFR (MDRD) Af Amer 112 Est GFR (MDRD) Non-Af 93 BUN/Creatinine Ratio 10.0 Glucose 92 Calcium 9.3 Troponin I < 0.015 Urine Color Yellow Urine Clarity Clear Urine pH 7.0 Ur Specific [place] 1.005 Urine Protein Negative Urine Glucose (UA) Normal Urine Ketones Negative Urine Occult Blood Negative Urine Nitrite Negative Urine Bilirubin Negative Urine Urobilinogen Normal Ur Leukocyte Esterase Negative Urine RBC 0 SEEN Urine WBC 0 SEEN Ur Squamous Epith Cells 0-5 SEEN Urine Bacteria 0 SEEN Urine Mucus 0 SEEN EKG Initial EKG: Interpretation: Sinus Rhythm (Normal sinus rhythm ventricular rate is 69. GA interval is 160 ms. Cures duration 94 ms. QT duration 404 ms. [place] is normal. The EKG is normal with pain) Treatment and Re-Evaluation Comments:: Patient has numerous elevated blood pressure readings. Since her medication was recently changed by Dr. Jeter. He has been paged to discuss treatment options and follow-up. Discharge Plan Triage Chief Complaint: Headache ED Provider: Omar Mcdonald Dx/Rx/DC Orders Clinical Impression: Hypertension, Adverse drug reaction, Chronic left-sided thoracic back pain, Anxiety disorder Instructions: ED Hypertension, Established Prescriptions: New alprazolam 0.5 mg tablet 0.5 mg PO BID PRN (Reason: anxiety) 7 Days Qty: 14 RF: 0 No Action aspirin [Adult Low Dose Aspirin] 81 mg tablet,delayed release (DR/EC) 81 mg PO DAILY RF: 0 clopidogrel [Plavix] 75 mg tablet 75 mg PO DAILY Qty: 90 RF: 3 [id number] [Trelegy Ellipta] 100-62.5-25 mcg blister with device 1 inh inhalation DAILY RF: 0 famotidine [Pepcid] 40 mg tablet 40 mg PO DAILY RF: 0 ranolazine 500 mg tablet extended release 12 hr 500 mg PO BID Qty: 60 RF: 11 diltiazem HCl 120 mg capsule,extended release 24hr 120 mg PO DAILY Qty: 1 RF: 0 Primary Care Provider: Ellis Crandall Referrals: Ellis Crandall MD [Primary Care Provider] - Activity Restrictions/Additional Instructions: You are to start your diltiazem 120 mg extended release pills to treat your high blood pressure. Disposition Disposition: Home, self care
[2021-04-21] MEDS: Acetaminophen 325 MG Tablet 650 MG PO (10:18)
--- NOTE | 2021-04-21 10:25 | EKG12_ITS ---
Test Reason : ANGINA Blood Pressure : / mmHG Vent. Rate : 069 BPM Atrial Rate : 069 BPM P-R Int : 168 ms QRS Dur : 094 ms QT Int : 404 ms P-R-T Axes : 074 065 048 degrees QTc Int : 432 ms Normal sinus rhythm Normal ECG Confirmed by JORJE KING, LEONIDES ([id number]), content editor FILI CASTILLO ([id number]) on 04/25/2021 1:57:05 PM Referred By: DON/BERTA Confirmed By:LEONIDES RECINOS MD
[2021-04-21 10:41] LABS: Bacteria 0 SEEN /hpf (None Seen); Mucous, Urine 0 SEEN /hpf (<or=2+); Red Blood Cells-Urine 0 SEEN /hpf (0-5); White Blood Cells 0 SEEN /hpf (0-5)
[2021-04-21 10:46] LABS: Color, Urine Yellow (Yellow); Glucose, Dipstick Normal (Normal); Ketone-Dipstick Negative (Negative); Leukocyte Esterase-Dipstick Negative /ul (Negative); Nitrite-Dipstick Negative (Negative); Occult Blood-Urine Negative /ul (Negative); Protein-Dipstick Negative (Negative); Specific Gravity, Urine 1.005 (1.002-1.030); Urine Bilirubin Dipstick Negative (Negative); Urine Clarity Clear (Clear); Urine Urobilinogen Normal (Normal)
[2021-04-21 10:47] LABS: Anion Gap 6 (5-15); BUN 7 mg/dL (7-18); Calcium,Total 9.3 mg/dL (8.5-10.1); Chloride 107 mmol/L (98-107); EST Glomerular Filtration Rate 93 mL/min (>60); Est Glom Filt Rate - Afr Amer 112 mL/min (>60); Estimated Creatinine Clearance 72.66 ml/min; Glucose 92 mg/dL (74-106); Potassium 4.1 mmol/L (3.5-5.1); Sodium Level 137 mmol/L (136-145)
[2021-04-21 10:54] LABS: Squamous Epithelial Cells - UA 0-5 SEEN /hpf (5-10)
[2021-04-21 12:14] VITALS: BP 180/99; PULSE 91; RESP 18; O2SAT 99
== END 2021-04-21 12:15 | disposition home or self-care (01) ==
PROVIDERS: Emergency Provider Emergency Medicine; PCP Family Medicine
DX: R51.9 Headache, unspecified (principal); I10 Essential (primary) hypertension; M54.6 Pain in thoracic spine; F41.9 Anxiety disorder, unspecified; T46.995A Adverse effect of other agents primarily affecting the cardiovascular system, initial encounter; Y92.9 Unspecified place or not applicable; I25.10 Atherosclerotic heart disease of native coronary artery without angina pectoris; J44.9 Chronic obstructive pulmonary disease, unspecified; K21.9 Gastro-esophageal reflux disease without esophagitis; F60.3 Borderline personality disorder; I25.2 Old myocardial infarction; I25.5 Ischemic cardiomyopathy; Z79.82 Long term (current) use of aspirin; Z79.899 Other long term (current) drug therapy; Z87.891 Personal history of nicotine dependence
CPT/HCPCS: 80048; 81001; 84484; 93005; 99285; A4216

== ENCOUNTER 2021-04-21 19:50 | Emergency (ER) | payer MEDICAID, SELFPAY ==
[2021-04-21 09:58] VITALS: BMI 22.4
[2021-04-21 19:51] VITALS: BP 206/107; PULSE 88; RESP 16; TEMP 36.7; O2SAT 99; BMI 22.4
[2021-04-21 21:09] VITALS: O2SAT 100
--- NOTE | 2021-04-21 21:09 | EKG12_ITS ---
Test Reason : PALPS Blood Pressure : / mmHG Vent. Rate : 075 BPM Atrial Rate : 075 BPM P-R Int : 148 ms QRS Dur : 094 ms QT Int : 394 ms P-R-T Axes : 068 062 050 degrees QTc Int : 439 ms Normal sinus rhythm Normal ECG Confirmed by JORJE KING, LEONIDES ([id number]), social media editor FILI CASTILLO ([id number]) on 04/25/2021 2:02:23 PM Referred By: LESLIE Confirmed By:LEONIDES RECINOS MD
--- NOTE | 2021-04-21 21:21 | RAD_ITS ---
HISTORY: chest pain EXAM: XR Chest 1 View: COMPARISON: April 06, 2020 FINDINGS: # of images incl. paperwork: 1 Lungs are clear. Heart is not enlarged. No acute osseous pathology perceived. Pulmonary vascularity is distinct. No effusions. RAD/Chest 1 View (Portable) IMPRESSION: No acute cardiopulmonary disease. at 2153 Reported and signed by: Celso Elaine MD Electronically Signed: Celso Elaine MD at 21:52 EDT Tel , Service support ,
[2021-04-21 21:51] LABS: Absolute Lymphocyte Count 1.99 X10^3/uL (0.83-4.51); Basophil# 0.06 X10^3/uL; Basophil% 1.1 % (0-1); Eosinophil# 0.19 X10^3/uL; Eosinophils% 3.3 % (0-5); Hemoglobin 14.2 g/dL (12.0-15.0); Lymphocyte # 1.99 X10^3/ul (0.83-4.51); Lymphocyte % 34.9 % (19-41); Mean Corpuscular Hgb 29.2 pg (27.0-32.0); Mean Corpuscular Volume 88.3 fL (81-99); Mean Platelet Vol. 10.1 fl (6.2-12.0); Monocyte# 0.52 X10^3/uL; Monocyte% 9.1 % (0-10); NRBC Flagged by Analyzer 0 % (0-5); Neutrophil # 2.95 X10^3/uL (2.7-7.7); Neutrophil % 51.6 % (47-70); Platelet Count 322 K/mm3 (150-450); RBC Distribution Width CV 13.2 % (11.6-14.6); RBC Distribution Width SD 43.2 fl (35.1-43.9); Red Blood Count 4.87 M/mm3 (4.2-5.4); White Blood Count 5.7 K/mm3 (4.4-11.0)
[2021-04-21 22:16] LABS: Anion Gap 5 (5-15); BUN 10 mg/dL (7-18); BUN/Creat Ratio 11.2 RATIO (10-20); Calcium,Total 10.1 mg/dL (8.5-10.1); Chloride 104 mmol/L (98-107); Creatinine, Serum 0.89 mg/dL (0.55-1.02); EST Glomerular Filtration Rate 70 mL/min (>60); Est Glom Filt Rate - Afr Amer 85 mL/min (>60); Estimated Creatinine Clearance 57.15 ml/min; Glucose 94 mg/dL (74-106); Potassium 3.8 mmol/L (3.5-5.1); Sodium Level 136 mmol/L (136-145)
[2021-04-21 22:31] LABS: Bacteria 0 SEEN /hpf (None Seen); Mucous, Urine 0 SEEN /hpf (<or=2+); White Blood Cells 0 SEEN /hpf (0-5)
[2021-04-21 22:36] LABS: Color, Urine Yellow (Yellow); Glucose, Dipstick Normal (Normal); Ketone-Dipstick 5 mg/dl (Negative); Leukocyte Esterase-Dipstick Negative /ul (Negative); Nitrite-Dipstick Negative (Negative); Occult Blood-Urine 25 /ul (Negative); Protein-Dipstick 15 mg/dl (Negative); Urine Bilirubin Dipstick Negative (Negative); Urine Clarity Sl. Cloudy (Clear); Urine Urobilinogen Normal (Normal)
[2021-04-21 22:43] LABS: Red Blood Cells-Urine 0-5 SEEN /hpf (0-5); Squamous Epithelial Cells - UA 0-5 SEEN /hpf (5-10)
[2021-04-21] MEDS: Labetalol (Prefilled) 20 MG/4 ML 10 MG IV (23:12)
[2021-04-21 23:13] VITALS: BP 182/110
[2021-04-21 23:33] VITALS: BP 150/91; PULSE 69
--- NOTE | 2021-04-22 00:30 | EDS_ITS ---
HPI History of Present Illness Chief Complaint: Palpitations Informant: patient Onset/Context/Timing Onset: Days (3) Context: Gradual Onset Timing: Continuous Quality: Fast Location: Chest Narrative Narrative: Patient presents with palpitations, angina, and elevated blood pressure that has been constant over the past 3 days. Patient states it is gradually gotten worse. Patient states she feels like her heart is beating fast at times. Patient states nothing makes it better nothing makes it worse. Patient states she feels like she needs to go back onto her metoprolol. Patient states that she was told to take her diltiazem tonight. Patient states that whenever she takes calcium channel blockers she develops acute dysuria and swelling. Patient states that she then gets put on a water pill which causes her potassium to go down. Patient states she does not want to be on a calcium channel iban. 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) Shortness of breath Home Medications aspirin 81 mg tablet,delayed release 81 mg PO DAILY 03/20/21 [History Last Taken Unknown] clopidogrel 75 mg tablet 75 mg PO DAILY #90 tablet 03/20/21 [Rx Last Taken Unknown] famotidine 40 mg tablet 40 mg PO DAILY 04/07/21 [History Last Taken Unknown] ranolazine 500 mg tablet,extended release,12 hr 500 mg PO BID #60 tab 04/20/21 [Rx Last Taken Unknown] alprazolam 0.5 mg PO BID PRN 7 Days #14 tab 04/21/21 [Rx Last Taken Unknown] diltiazem HCl 120 mg capsule,extended release 24 hr 120 mg PO DAILY #1 cap 04/21/21 [Rx Last Taken Unknown] Allergy/AdvReac Type Severity Reaction Status Date / Time morphine Allergy Hives Verified 04/21/21 10:00 amlodipine AdvReac Intermediate chest Verified 04/21/21 10:00 pain and cannot breathe carvedilol [From Coreg] AdvReac Intermediate throat Verified 04/21/21 10:00 closing up and chest pressure citalopram [From Celexa] AdvReac NAUSEATED Verified 04/21/21 10:00 AND IRRITABLE lisinopril AdvReac SOB, chest Verified 04/21/21 10:00 tightness,throat closing venlafaxine [From Effexor] AdvReac DIDN'T Verified 04/21/21 10:00 WORK Family History Father CAD (coronary artery disease) Myocardial infarction Surgical History H/O section History of coronary artery stent placement (12/18/20) History of left heart catheterization (01/25/21) Social History household members: none Smoking Status: Former smoker quit date: 01/23/21 pack-years: 30 how long ago did patient quit smokin days ago alcohol intake: never substance use type: does not use caffeine: Yes Type: coffee Number of servings: 2 ROS ROS ED Constitutional Constitutional ED: Denies chills or fever(s) Eyes Eyes: Denies blurry vision or change in vision ENT ENT ED: Denies rhinorrhea or sore throat Cardiovascular Cardiovascular: Reports chest pain, palpitations and racing heartbeat Respiratory/Chest Respiratory/Chest: Denies cough or dyspnea Gastrointestinal Gastrointestinal: Denies nausea or vomiting Genitourinary Genitourinary ED: Reports dysuria; Denies hematuria Musculoskeletal Musculoskeletal: Reports back pain; Denies neck pain Integumentary Denies abscess or rash Neurologic Neurologic: Reports headache(s); Denies weakness Allergic/Immunologic Allergic/Immunologic ED: Denies mouth swelling or urticaria EXAM Physical Exam Const Vital Signs: 04/21/21 19:51 04/21/21 20:52 04/21/21 21:09 Temperature 98.1 F Temperature Source Temporal Pulse Rate 88 Respiratory Rate 16 Respiratory Effort Normal Non-Labored Blood Pressure 206/107 H Blood Pressure Mean 140 Pulse Ox 99 100 Oxygen Delivery Method Room Air Room Air 04/21/21 23:13 04/21/21 23:33 Temperature Temperature Source Pulse Rate 69 Respiratory Rate Respiratory Effort Blood Pressure 182/110 H 150/91 H Blood Pressure Mean 134 110 Pulse Ox Oxygen Delivery Method Positive well nourished and well developed General Appearance ED: well developed HEENT Reports moist mucous membranes normocephalic and atraumatic Neck supple and no JVD Resp normal respiratory effort and clear to auscultation bilaterally Cardio regular rate, regular rhythm and no murmurs Rate: regular rate Rhythm: regular rhythm GI non-tender and non-distended Auscultation: normoactive bowel sounds Palpation: soft Extremity normal to inspection General Extremety ED: Negative for edema or tenderness General Extremity: Negative for edema Neuro oriented x3, CN's II-XII intact bilaterally and no sensory deficits noted Sensorium / Orientation: alert Motor Exam: strength 5/5 throughout Psych mental status grossly normal Skin Rashes: no rashes MDM MDM MDM Narrative Medical decision making narrative: EKG was obtained. On my interpretation, shows a normal sinus rhythm with a rate of 75. There are no acute ST or T wave changes. CBC, basic metabolic profile, troponin, and urinalysis were obtained and were all essentially within normal limits. Portable 1 view chest x-ray was obtained. On my interpretation, lung petit are clear. There is normal cardiac silhouette. Bony thorax is normal. There is no acute process noted. Radiologist also interpreted the x-ray and agrees. Patient was given a dose of labetalol here. Patient's blood pressure improved after this. Patient was instructed to follow-up with her primary care physician and grievance and appeals specialist for further management of her blood pressure medications. Patient understood and was agreeable with the plan. All questions were answered. Lab Data Attestation: I reviewed the patient's lab results. Labs: Laboratory Results - last 24 hr 04/21/21 04/21/21 04/21/21 21:40 21:40 22:25 WBC 5.7 RBC 4.87 Hgb 14.2 Hct 43.0 MCV 88.3 MCH 29.2 MCHC 33.0 RDW Std Deviation 43.2 RDW Coeff of Dona 13.2 Plt Count 322 MPV 10.1 Immature Gran % (Auto) 0.000 Neut % (Auto) 51.6 Lymph % (Auto) 34.9 [place] % (Auto) 9.1 Eos % (Auto) 3.3 Baso % (Auto) 1.1 H Absolute Neuts (auto) 3.0 Absolute Lymphs (auto) 1.99 Nucleated RBC % 0 Sodium 136 Potassium 3.8 Chloride 104 Carbon Dioxide 27.0 Anion Gap 5 BUN 10 Creatinine 0.89 Estim Creat Clear Calc 57.15 Est GFR (MDRD) Af Amer 85 Est GFR (MDRD) Non-Af 70 BUN/Creatinine Ratio 11.2 Glucose 94 Calcium 10.1 Troponin I < 0.015 Urine Color Yellow Urine Clarity Sl. Cloudy Urine pH 8.0 Ur Specific [place] 1.010 Urine Protein 15 H Urine Glucose (UA) Normal Urine Ketones 5 H Urine Occult Blood 25 H Urine Nitrite Negative Urine Bilirubin Negative Urine Urobilinogen Normal Ur Leukocyte Esterase Negative Urine RBC 0-5 SEEN Urine WBC 0 SEEN Ur Squamous Epith Cells 0-5 SEEN Urine Bacteria 0 SEEN Urine Mucus 0 SEEN Radiography Chest X-Ray - ED: 1 View, Read by ED Physician, Read by Radiologist and Normal Diagnostic Testing: Radiology Impression Chest X-Ray 04/21/21 21:21 IMPRESSION: No acute cardiopulmonary disease. at 2153 Reported and signed by: Celso Elaine MD Electronically Signed: Celso Elaine MD at 21:52 EDT Tel , Service support , EKG Initial EKG: Attestation: I personally reviewed and interpreted this EKG as follows: Interpretation: Sinus Rhythm (75) and No Acute Injury Pattern Discharge Plan Triage Chief Complaint: Palpitations ED Provider: Sincere Burroughs Dx/Rx/DC Orders Clinical Impression: Hypertension Instructions: ED Hypertension, Established Prescriptions: No Action aspirin [Adult Low Dose Aspirin] 81 mg tablet,delayed release (DR/EC) 81 mg PO DAILY RF: 0 clopidogrel [Plavix] 75 mg tablet 75 mg PO DAILY Qty: 90 RF: 3 [id number] [Trelegy Ellipta] 100-62.5-25 mcg blister with device 1 inh inhalation DAILY RF: 0 alprazolam 0.5 mg tablet 0.5 mg PO BID PRN (Reason: anxiety) 7 Days Qty: 14 RF: 0 famotidine [Pepcid] 40 mg tablet 40 mg PO DAILY RF: 0 ranolazine 500 mg tablet extended release 12 hr 500 mg PO BID Qty: 60 RF: 11 diltiazem HCl 120 mg capsule,extended release 24hr 120 mg PO DAILY Qty: 1 RF: 0 Primary Care Provider: Ellis Crandall Referrals: Ellis Crandall MD [Primary Care Provider] - As soon as possible Disposition Disposition: Home, self care
[2021-04-22 00:41] VITALS: BP 159/99; PULSE 72; RESP 18; O2SAT 96
== END 2021-04-22 00:41 | disposition home or self-care (01) ==
PROVIDERS: Emergency Provider Emergency Medicine; PCP Family Medicine
DX: I10 Essential (primary) hypertension (principal); I25.10 Atherosclerotic heart disease of native coronary artery without angina pectoris; J44.9 Chronic obstructive pulmonary disease, unspecified; F60.3 Borderline personality disorder; I25.5 Ischemic cardiomyopathy; K21.9 Gastro-esophageal reflux disease without esophagitis; I25.2 Old myocardial infarction; Z79.82 Long term (current) use of aspirin; Z79.899 Other long term (current) drug therapy; Z87.891 Personal history of nicotine dependence; Z95.5 Presence of coronary angioplasty implant and graft; Z82.49 Family history of ischemic heart disease and other diseases of the circulatory system
CPT/HCPCS: 71045; 80048; 81001; 84484; 85025; 93005; 99284; 99285; A4216

== ENCOUNTER 2021-04-24 18:11 | Emergency (ER) | payer MEDICAID, SELFPAY ==
[2021-04-24 18:12] VITALS: BP 154/88; PULSE 68; RESP 18; TEMP 36.5; O2SAT 100; BMI 21.7
--- NOTE | 2021-04-24 18:31 | EDS_ITS ---
HPI History of Present Illness Chief Complaint: General Illness Narrative Narrative: Patient presenting with chest pain. She has history of ND and cardiac stent in her RCA. She states this was in November of this year. She has a history of hypertension as well. Patient states that she has had pain in the left side of her ribs since she had her stent placed. Today she is complaining of heaviness over her chest. She has nausea associated with it. She states that her blood pressure is normal and then goes up frequently. She has spoken to her cardiac doctor and had her medications changed a couple of times. This is not helping. Patient denies fever, cough. 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) Shortness of breath Home Medications aspirin 81 mg tablet,delayed release 81 mg PO DAILY 03/20/21 [History Last Taken Unknown] clopidogrel 75 mg tablet 75 mg PO DAILY #90 tablet 03/20/21 [Rx Last Taken Unknown] famotidine 40 mg tablet 40 mg PO DAILY 04/07/21 [History Last Taken Unknown] alprazolam 0.5 mg PO BID PRN 7 Days #14 tab 04/21/21 [Rx Last Taken Unknown] metoprolol succinate 25 mg PO DAILY 04/24/21 [History Last Taken Unknown] Allergy/AdvReac Type Severity Reaction Status Date / Time morphine Allergy Hives Verified 04/24/21 18:14 amlodipine AdvReac Intermediate chest Verified 04/24/21 18:14 pain and cannot breathe carvedilol [From Coreg] AdvReac Intermediate throat Verified 04/24/21 18:14 closing up and chest pressure citalopram [From Celexa] AdvReac NAUSEATED Verified 04/24/21 18:14 AND IRRITABLE lisinopril AdvReac SOB, chest Verified 04/24/21 18:14 tightness,throat closing venlafaxine [From Effexor] AdvReac DIDN'T Verified 04/24/21 18:14 WORK Family History Father CAD (coronary artery disease) Myocardial infarction Surgical History H/O section History of coronary artery stent placement (12/18/20) History of left heart catheterization (01/25/21) Social History household members: none Smoking Status: Former smoker quit date: 01/23/21 pack-years: 30 how long ago did patient quit smokin days ago alcohol intake: never substance use type: does not use caffeine: Yes Type: coffee Number of servings: 2 ROS ROS ED Constitutional Constitutional ED: Denies chills, fever(s) or sweats Eyes Eyes: Denies blurry vision or change in vision ENT ENT ED: Denies ear pain or sore throat Cardiovascular Cardiovascular: Reports chest pain and palpitations; Denies racing heartbeat Respiratory/Chest Respiratory/Chest: Denies cough, dyspnea or sputum Gastrointestinal Gastrointestinal: Reports nausea; Denies abdominal pain, constipation, diarrhea or vomiting Genitourinary Genitourinary ED: Denies dysuria, hematuria or urinary frequency Musculoskeletal Musculoskeletal: Denies arthralgias, myalgias or neck pain Integumentary Denies abscess, Abrasions or rash Neurologic Neurologic: Denies headache(s), paresthesias or weakness Psychiatric Psychiatric: Denies anxiety, depression, suicidal ideation or suicidal thoughts Endocrine Endocrinology: Denies polydipsia or polyuria EXAM Physical Exam Const Vital Signs: 04/24/21 18:12 04/24/21 18:22 04/24/21 18:29 Temperature 97.7 F L Temperature Source Oral Pulse Rate 68 Respiratory Rate 18 Respiratory Effort Normal Non-Labored Normal Non-Labored Respiratory Pattern Normal Normal Blood Pressure 154/88 H Blood Pressure Mean 110 Pulse Ox 100 Oxygen Delivery Method Room Air 04/24/21 18:41 04/24/21 19:18 04/24/21 20:00 Temperature Temperature Source Pulse Rate 68 62 Respiratory Rate 16 14 Respiratory Effort Respiratory Pattern Blood Pressure 156/86 H 148/74 H Blood Pressure Mean 109 98 Pulse Ox 100 100 100 Oxygen Delivery Method Room Air Room Air Room Air Positive well nourished General Appearance ED: NAD; Negative for pallor HEENT Reports normocephalic, head/scalp atraumatic and moist mucous membranes Negative for trauma Eyes PERRL and EOMs intact bilaterally Chest Wall Chest Narrative: Tenderness to palpation of the left upper thoracic wall in the midaxillary line. No crepitance or deformity. Resp normal respiratory effort and clear to auscultation bilaterally Auscultation: Negative for rales, rhonchi or wheezes Cardio regular rate and regular rhythm GI normal to inspection, nondistended, normoactive bowel sounds and non-distended Auscultation: normoactive bowel sounds Palpation: soft Narrative: Deferred Extremity normal to inspection General Extremety ED: Yes edema and tenderness General Extremity: edema Neuro oriented x3 and CN's II-XII intact bilaterally Sensorium / Orientation: alert Motor Exam: strength 5/5 throughout Psych mental status grossly normal Attitude: No agitated Mood & Affect: anxious Skin no rashes or lesions noted and no wounds General Skin Exam: Negative for jaundice or pallor MDM MDM MDM Narrative Medical decision making narrative: Patient presenting with nausea and chest pain. Part of this chest pain is chronic and is on the left lateral aspect of her chest. She states she had a wave of chest pain across her chest earlier and she became anxious. She is unsure if it is the metoprolol causing symptoms for her. She states that when she went off of it that she started to have tachycardia. She has been in the ED twice this week already with similar complaints. EKG performed on arrival shows sinus rhythm at 59 bpm without signs of ischemic changes as interpreted by myself. Chest x-ray shows no acute cardiopulmonary process. Her lab work-up today is negative. Troponin is negative. Discussed with Dr. Lopez who tells me that she has been cathed twice this year and her vessels are patent he does not believe she needs to be admitted to the hospital. He recommended he follow-up with her on an outpatient basis. Impression: 1. Chest pain Lab Data Labs: Laboratory Results - last 24 hr 04/24/21 04/24/21 18:34 18:34 WBC 5.0 RBC 4.30 Hgb 12.6 Hct 37.2 MCV 86.5 MCH 29.3 MCHC 33.9 RDW Std Deviation 41.6 RDW Coeff of Dona 13.2 Plt Count 305 MPV 9.8 Immature Gran % (Auto) 0.000 Neut % (Auto) 31.3 L Lymph % (Auto) 55.4 H [place] % (Auto) 8.3 Eos % (Auto) 3.6 Baso % (Auto) 1.4 H Absolute Neuts (auto) 1.6 L Absolute Lymphs (auto) 2.79 Nucleated RBC % 0 Sodium 131 L Potassium 3.5 Chloride 99 Carbon Dioxide 24.0 Anion Gap 8 BUN 8 Creatinine 0.68 Estim Creat Clear Calc 78.24 Est GFR (MDRD) Af Amer 116 Est GFR (MDRD) Non-Af 96 BUN/Creatinine Ratio 11.8 Glucose 84 Calcium 9.0 Troponin I < 0.015 Radiography Diagnostic Testing: Radiology Impression Chest X-Ray 04/24/21 18:35 IMPRESSION: Normal x-ray examination of the chest. Electronically Signed: Oscar Liz MD at 19:12 EDT Tel , Service support , Discharge Plan Triage Chief Complaint: General Illness ED Provider: Theodore Hines Dx/Rx/DC Orders Instructions: ED Chest Pain, Uncertain Cause Prescriptions: No Action aspirin [Adult Low Dose Aspirin] 81 mg tablet,delayed release (DR/EC) 81 mg PO DAILY RF: 0 clopidogrel [Plavix] 75 mg tablet 75 mg PO DAILY Qty: 90 RF: 3 [id number] [Trelegy Ellipta] 100-62.5-25 mcg blister with device 1 inh inhalation DAILY RF: 0 alprazolam 0.5 mg tablet 0.5 mg PO BID PRN (Reason: anxiety) 7 Days Qty: 14 RF: 0 metoprolol succinate 25 mg tablet extended release 24 hr 25 mg PO DAILY RF: 0 famotidine [Pepcid] 40 mg tablet 40 mg PO DAILY RF: 0 Primary Care Provider: Ellis Crandall Referrals: Tc Lopez MD [STAFF PHYSICIAN] - As soon as possible Ellis Crandall MD [Primary Care Provider] - Disposition Disposition: Home, self care
--- NOTE | 2021-04-24 18:34 | EKG12_ITS ---
Test Reason : CP Blood Pressure : / mmHG Vent. Rate : 059 BPM Atrial Rate : 059 BPM P-R Int : 166 ms QRS Dur : 094 ms QT Int : 422 ms P-R-T Axes : 064 061 043 degrees QTc Int : 417 ms Sinus bradycardia Otherwise normal ECG Confirmed by GLEN KING, JOE ([id number]), assistant production editor FILI CASTILLO ([id number]) on 04/26/2021 12:57:00 PM Referred By: LESLIE Confirmed By:JOE CARROLL MD
--- NOTE | 2021-04-24 18:35 | RAD_ITS ---
STUDY: X-RAY CHEST REASON FOR EXAM: Female, 55 years old. chest pain TECHNIQUE: Single AP portable view of the chest. COMPARISON: 04/13/2021 FINDINGS: The lungs are clear and expanded. There is no demonstrated pleural abnormality. Normal size heart. Normal mediastinum and kirsten. Normal visualized pulmonary arteries. Normal visualized aortic arch and descending thoracic aorta. Normal visualized thoracic spine. Normal visualized ribs, clavicles, and shoulders. There is no demonstrated abnormality of the visualized soft tissue structures of the upper abdomen. RAD/Chest 1 View (Portable) IMPRESSION: Normal x-ray examination of the chest. Electronically Signed: Oscar Liz MD at 19:12 EDT Tel , Service support ,
[2021-04-24 18:41] VITALS: O2SAT 100
[2021-04-24 18:43] LABS: Absolute Lymphocyte Count 2.79 X10^3/uL (0.83-4.51); Absolute Neutrophil Count 1.6 X10^3/uL (2.0-7.7); Basophil# 0.07 X10^3/uL; Basophil% 1.4 % (0-1); Eosinophil# 0.18 X10^3/uL; Eosinophils% 3.6 % (0-5); Hematocrit 37.2 % (37-47); Hemoglobin 12.6 g/dL (12.0-15.0); Lymphocyte # 2.79 X10^3/ul (0.83-4.51); Lymphocyte % 55.4 % (19-41); Mean Corp Hgb Conc 33.9 g/dL (32-36); Mean Corpuscular Hgb 29.3 pg (27.0-32.0); Mean Corpuscular Volume 86.5 fL (81-99); Mean Platelet Vol. 9.8 fl (6.2-12.0); Monocyte# 0.42 X10^3/uL; Monocyte% 8.3 % (0-10); NRBC Flagged by Analyzer 0 % (0-5); Neutrophil # 1.58 X10^3/uL (2.7-7.7); Neutrophil % 31.3 % (47-70); Platelet Count 305 K/mm3 (150-450); RBC Distribution Width CV 13.2 % (11.6-14.6); RBC Distribution Width SD 41.6 fl (35.1-43.9)
[2021-04-24 19:00] LABS: Anion Gap 8 (5-15); BUN 8 mg/dL (7-18); BUN/Creat Ratio 11.8 RATIO (10-20); Chloride 99 mmol/L (98-107); Creatinine, Serum 0.68 mg/dL (0.55-1.02); EST Glomerular Filtration Rate 96 mL/min (>60); Est Glom Filt Rate - Afr Amer 116 mL/min (>60); Estimated Creatinine Clearance 78.24 ml/min; Glucose 84 mg/dL (74-106); Potassium 3.5 mmol/L (3.5-5.1); Sodium Level 131 mmol/L (136-145)
[2021-04-24] MEDS: Aspirin 81 MG TAB.CHEW 324 MG PO (19:05)
[2021-04-24 19:18] VITALS: BP 156/86; PULSE 68; RESP 16; O2SAT 100
[2021-04-24 20:00] VITALS: BP 148/74; PULSE 62; RESP 14; O2SAT 100
== END 2021-04-24 20:31 | disposition home or self-care (01) ==
PROVIDERS: Emergency Provider Student in an Organized Health Care Education/Training Program; PCP Family Medicine
DX: R07.9 Chest pain, unspecified (principal); F60.3 Borderline personality disorder; I10 Essential (primary) hypertension; I25.10 Atherosclerotic heart disease of native coronary artery without angina pectoris; I25.5 Ischemic cardiomyopathy; J44.9 Chronic obstructive pulmonary disease, unspecified; K21.9 Gastro-esophageal reflux disease without esophagitis; I25.2 Old myocardial infarction; Z79.82 Long term (current) use of aspirin; Z79.899 Other long term (current) drug therapy; Z87.891 Personal history of nicotine dependence; Z95.5 Presence of coronary angioplasty implant and graft
CPT/HCPCS: 71045; 80048; 84484; 85025; 93005; 99285; A4216

== ENCOUNTER 2021-04-25 22:09 | Emergency (ER) | payer MEDICAID, SELFPAY ==
[2021-04-24 18:12] VITALS: BMI 21.7
[2021-04-25 22:09] VITALS: BP 176/95; PULSE 84; RESP 16; TEMP 36.7; O2SAT 100; BMI 22.3
--- NOTE | 2021-04-25 22:42 | EKG12_ITS ---
Test Reason : CP Blood Pressure : / mmHG Vent. Rate : 068 BPM Atrial Rate : 068 BPM P-R Int : 136 ms QRS Dur : 086 ms QT Int : 394 ms P-R-T Axes : 073 064 056 degrees QTc Int : 418 ms Normal sinus rhythm Normal ECG Confirmed by GLEN KING, JOE ([id number]), copy editor FILI CASTILLO ([id number]) on 04/27/2021 12:36:11 PM Referred By: JOHN Confirmed By:JOE CARROLL MD
--- NOTE | 2021-04-25 22:43 | EDS_ITS ---
HPI History of Present Illness Chief Complaint: Chest Pain Narrative Narrative: Patient presenting with persistent chest discomfort this been bothering her intermittent throughout the day today. She describes a substernal heaviness with occasional sharp component. She has had this multiple times in the past. This appears to be chronic. She has had 3 recent emergency department visits. She has had 2 cardiac caths this year. Her cardiac stent in her RCA is patent. She has no pulmonary embolism risk factors. She has never had a aortic dissection. She used Ranexa but it seems to give her a headache for angina Comes in for further. evaluation. She stated her blood pressure has been out of control recently. She does take chronic medication for this. 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) Shortness of breath Home Medications aspirin 81 mg tablet,delayed release 81 mg PO DAILY 03/20/21 [History Last Taken Unknown] clopidogrel 75 mg tablet 75 mg PO DAILY #90 tablet 03/20/21 [Rx Last Taken Unknown] famotidine 40 mg tablet 40 mg PO DAILY 04/07/21 [History Last Taken Unknown] alprazolam 0.5 mg PO BID PRN 7 Days #14 tab 04/21/21 [Rx Last Taken Unknown] metoprolol succinate 25 mg PO DAILY 04/24/21 [History Last Taken Unknown] losartan 25 mg tablet 25 mg PO DAILY #30 tab 04/25/21 [Rx Last Taken Unknown] ranolazine 500 mg tablet,extended release,12 hr 500 mg PO BID #60 tab 04/25/21 [Rx Last Taken Unknown] Allergy/AdvReac Type Severity Reaction Status Date / Time morphine Allergy Hives Verified 04/25/21 22:12 amlodipine AdvReac Intermediate chest Verified 04/25/21 22:12 pain and cannot breathe carvedilol [From Coreg] AdvReac Intermediate throat Verified 04/25/21 22:12 closing up and chest pressure citalopram [From Celexa] AdvReac NAUSEATED Verified 04/25/21 22:12 AND IRRITABLE lisinopril AdvReac SOB, chest Verified 04/25/21 22:12 tightness,throat closing venlafaxine [From Effexor] AdvReac DIDN'T Verified 04/25/21 22:12 WORK Family History Father CAD (coronary artery disease) Myocardial infarction Surgical History H/O section History of coronary artery stent placement (12/18/20) History of left heart catheterization (01/25/21) Social History household members: none Smoking Status: Former smoker quit date: 01/23/21 pack-years: 30 how long ago did patient quit smokin days ago alcohol intake: never substance use type: does not use caffeine: Yes Type: coffee Number of servings: 2 ROS ROS ED ROS Narrative ROS General: Denies fever, chills, sweats Eyes: Denies visual changes, blurred vision, double vision ENT: Denies ear pain, rhinorrhea, sore throat Cardiovascular: See HPI Respiratory: Denies dyspnea, cough, sputum, dyspnea on exertion, orthopnea,PND GI: Denies abdominal pain, nausea, vomiting, diarrhea, constipation, melena : Denies dysuria, hematuria, frequency Musculoskeletal: Denies myalgias, arthralgias, neck pain, back pain Skin: Denies rash, abscess, abrasions Neuro: Denies headache, weakness, paresthesia Psych: Denies depression, anxiety Endo: Denies polyuria, polydipsia, polyphagia Heme: Denies easy bruising, easy bleeding, lymphadenopathy Allergy: Denies hives, swelling EXAM Physical Exam Narrative Exam Narrative: Vital signs reviewed General: Well-nourished well-developed Head: Normocephalic atraumatic Eyes: Pupils equal round and reactive to light extraocular movements intact ENT: TMs clear no hemotympanum no trauma Neck: Nontender full range of motion Cardiovascular: Regular rate rhythm no murmurs normal S1-S2 Respiratory: No distress clear to auscultation bilaterally chest nontender Abdomen: Soft nontender nondistended normal bowel sounds no masses Back: Nontender no CVA tenderness Extremities: Nontender active range of motion ?4 extremities no trauma Skin: Normal color no trauma Neuro alert oriented cranial nerves II through XII intact normal strength sensation reflexes Const Vital Signs: 04/25/21 22:09 04/25/21 22:50 04/25/21 23:25 Temperature 98.0 F Temperature Source Temporal Pulse Rate 84 81 68 Respiratory Rate 16 13 15 Respiratory Effort Short of Breath Blood Pressure 176/95 H 171/119 H 163/92 H Blood Pressure Mean 122 136 115 Pulse Ox 100 100 98 Oxygen Delivery Method Room Air Room Air Room Air Heart Score History: Slightly/Non-Suspicious ECG: Normal Age: >45 - <65 years Risk Factors: 1 or 2 Risk Factors Troponin: </= Normal Limit Score: 2 MDM MDM MDM Narrative Medical decision making narrative: Cardiac orders obtained. EKG on arrival shows sinus rhythm at a rate of 68 with no acute ischemia or arrhythmia. No STEMI. Lab work and chest x-ray obtained. Patient given a dose of aspirin and labetalol for her hypertension. My interpretation of the chest x-ray shows nothing acute. Chronic changes. No widened mediastinum. Lab work is unremarkable including CBC BMP and troponin. On reevaluation she stated she feels inflammation in her chest when she touches it. Given a dose of Toradol. I do not feel this is cardiac in nature. I feel she can be discharged home to follow-up as an outpatient Lab Data Labs: Laboratory Results - last 24 hr 04/25/21 04/25/21 22:45 22:45 WBC 5.9 RBC 4.29 Hgb 12.4 Hct 37.6 MCV 87.6 MCH 28.9 MCHC 33.0 RDW Std Deviation 42.4 RDW Coeff of Dona 13.2 Plt Count 300 MPV 10.2 Immature Gran % (Auto) 0.200 Neut % (Auto) 42.1 L Lymph % (Auto) 44.0 H [place] % (Auto) 9.7 Eos % (Auto) 2.6 Baso % (Auto) 1.4 H Absolute Neuts (auto) 2.5 Absolute Lymphs (auto) 2.59 Nucleated RBC % 0 Sodium 137 Potassium 4.2 Chloride 105 Carbon Dioxide 25.0 Anion Gap 7 BUN 12 Creatinine 0.74 Estim Creat Clear Calc 71.89 Est GFR (MDRD) Af Amer 104 Est GFR (MDRD) Non-Af 86 BUN/Creatinine Ratio 16.2 Glucose 90 Calcium 9.8 Troponin I < 0.015 Radiography Diagnostic Testing: Radiology Impression Chest X-Ray 04/25/21 23:12 IMPRESSION: No acute cardiopulmonary disease. Pulmonary hyperexpansion likely representing obstructive lung disease. No change at 2321 Reported and signed by: Celso Elaine MD Electronically Signed: Celso Elaine MD at 23:20 EDT Tel , Service support , Discharge Plan Triage Chief Complaint: Chest Pain ED Provider: Dallin Jones Dx/Rx/DC Orders Clinical Impression: Chest pain, Hypertension Instructions: ED Chest Pain, Noncardiac, ED High Blood Pressure ... Prescriptions: No Action aspirin [Adult Low Dose Aspirin] 81 mg tablet,delayed release (DR/EC) 81 mg PO DAILY RF: 0 clopidogrel [Plavix] 75 mg tablet 75 mg PO DAILY Qty: 90 RF: 3 [id number]-[id number]-[id number] [Trelegy Ellipta] 100-62.5-25 mcg blister with device 1 inh inhalation DAILY RF: 0 alprazolam 0.5 mg tablet 0.5 mg PO BID PRN (Reason: anxiety) 7 Days Qty: 14 RF: 0 metoprolol succinate 25 mg tablet extended release 24 hr 25 mg PO DAILY RF: 0 famotidine [Pepcid] 40 mg tablet 40 mg PO DAILY RF: 0 losartan 25 mg tablet 25 mg PO DAILY Qty: 30 RF: 3 ranolazine 500 mg tablet extended release 12 hr 500 mg PO BID Qty: 60 RF: 11 Primary Care Provider: Ellis Crandall Referrals: Ellis Crandall MD [Primary Care Provider] - Disposition Disposition: Home, self care
[2021-04-25 22:50] VITALS: BP 171/119; PULSE 81; RESP 13; O2SAT 100
[2021-04-25] MEDS: Labetalol (Prefilled) 20 MG/4 ML 10 MG IV (22:51)
[2021-04-25] MEDS: Aspirin 81 MG TAB.CHEW 324 MG PO (22:51)
[2021-04-25 22:53] LABS: Absolute Lymphocyte Count 2.59 X10^3/uL (0.83-4.51); Absolute Neutrophil Count 2.5 X10^3/uL (2.0-7.7); Basophil# 0.08 X10^3/uL; Basophil% 1.4 % (0-1); Eosinophil# 0.15 X10^3/uL; Eosinophils% 2.6 % (0-5); Hematocrit 37.6 % (37-47); Hemoglobin 12.4 g/dL (12.0-15.0); Lymphocyte # 2.59 X10^3/ul (0.83-4.51); Mean Corpuscular Hgb 28.9 pg (27.0-32.0); Mean Corpuscular Volume 87.6 fL (81-99); Mean Platelet Vol. 10.2 fl (6.2-12.0); Monocyte# 0.57 X10^3/uL; Monocyte% 9.7 % (0-10); NRBC Flagged by Analyzer 0 % (0-5); Neutrophil # 2.48 X10^3/uL (2.7-7.7); Neutrophil % 42.1 % (47-70); Platelet Count 300 K/mm3 (150-450); RBC Distribution Width CV 13.2 % (11.6-14.6); RBC Distribution Width SD 42.4 fl (35.1-43.9); Red Blood Count 4.29 M/mm3 (4.2-5.4); White Blood Count 5.9 K/mm3 (4.4-11.0)
[2021-04-25 23:11] LABS: Anion Gap 7 (5-15); BUN 12 mg/dL (7-18); BUN/Creat Ratio 16.2 RATIO (10-20); Calcium,Total 9.8 mg/dL (8.5-10.1); Chloride 105 mmol/L (98-107); Creatinine, Serum 0.74 mg/dL (0.55-1.02); EST Glomerular Filtration Rate 86 mL/min (>60); Est Glom Filt Rate - Afr Amer 104 mL/min (>60); Estimated Creatinine Clearance 71.89 ml/min; Glucose 90 mg/dL (74-106); Potassium 4.2 mmol/L (3.5-5.1); Sodium Level 137 mmol/L (136-145)
--- NOTE | 2021-04-25 23:12 | RAD_ITS ---
HISTORY: chest pain EXAM: XR Chest 2 Views: COMPARISON: April 24, 2021 FINDINGS: # of images incl. paperwork: 2 Pulmonary hyperexpansion. Paucity of peripheral parenchymal pulmonary perfusion persists. Calcific plaque within the aortic arch. Lungs are clear. Heart is not enlarged. No acute osseous pathology perceived. Pulmonary vascularity is distinct. No effusions. RAD/Chest PA and Lateral IMPRESSION: No acute cardiopulmonary disease. Pulmonary hyperexpansion likely representing obstructive lung disease. No change at 2321 Reported and signed by: Celso Elaine MD Electronically Signed: Celso Elaine MD at 23:20 EDT Tel , Service support ,
[2021-04-25 23:25] VITALS: BP 163/92; PULSE 68; RESP 15; O2SAT 98
[2021-04-26 00:18] VITALS: BP 164/86; PULSE 75; RESP 17; O2SAT 100
== END 2021-04-26 00:25 | disposition home or self-care (01) ==
PROVIDERS: Emergency Provider Emergency Medicine; PCP Family Medicine
DX: R07.9 Chest pain, unspecified (principal); I10 Essential (primary) hypertension; F31.9 Bipolar disorder, unspecified; I25.10 Atherosclerotic heart disease of native coronary artery without angina pectoris; J44.9 Chronic obstructive pulmonary disease, unspecified; K21.9 Gastro-esophageal reflux disease without esophagitis; I25.2 Old myocardial infarction; Z87.891 Personal history of nicotine dependence; Z95.5 Presence of coronary angioplasty implant and graft; Z82.49 Family history of ischemic heart disease and other diseases of the circulatory system
CPT/HCPCS: 71046; 80048; 84484; 85025; 93005; 96374; 96375; 99284

== ENCOUNTER → 2021-04-28 13:21 | Outpatient (CLI) | payer MEDICAID, SELFPAY ==
[2021-04-25 22:09] VITALS: BMI 22.3
[2021-05-04 08:08] LABS: Epinephrine, Pl 19 pg/mL (0-62); Norepinephrine, Pl 462 pg/mL (0-874)
[2021-05-04 08:45] LABS: Dopamine, Pl <30 pg/mL (0-48)
== END ==
PROVIDERS: PCP Family Medicine; Referring Provider Physician Assistant Medical; Visit Provider Physician Assistant Medical
DX: I16.0 Hypertensive urgency (principal); R00.2 Palpitations
CPT/HCPCS: 36415; 82384

== ENCOUNTER 2021-05-03 09:57 | Emergency (ER) | payer MEDICAID, SELFPAY ==
[2021-05-03 09:35] VITALS: BMI 21.0
[2021-05-03 09:57] VITALS: BP 184/101; PULSE 82; RESP 18; TEMP 36.7; O2SAT 97; BMI 23.1
--- NOTE | 2021-05-03 10:10 | EKG12_ITS ---
Test Reason : CHEST PAIN Blood Pressure : / mmHG Vent. Rate : 083 BPM Atrial Rate : 083 BPM P-R Int : 144 ms QRS Dur : 090 ms QT Int : 380 ms P-R-T Axes : 067 065 054 degrees QTc Int : 446 ms Normal sinus rhythm Normal ECG Confirmed by JORJE KING, LEONIDES ([id number]), assistant film editor MITA KAISER ([id number]) on 05/05/2021 8:37:24 AM Referred By: MIGUEL Confirmed By:LEONIDES RECINOS MD
--- NOTE | 2021-05-03 10:12 | EDS_ITS ---
HPI History of Present Illness Chief Complaint: Chest Pain Informant: patient Onset/Context/Timing Onset: Today Context: Sudden Onset Timing: Continuous Quality: Aching, cramping Location: Left upper chest Worsened by: Nothing Relieved by: Nothing Narrative Narrative: Patient presents with chest pain that began this morning. Patient states she was drinking her morning coffee when she developed pain in her chest. Patient states she only had 2 sips of her coffee today. Patient states that her pain feels like it is aching and cramping. Patient also states she feels like her heart is racing. Patient states she was recently treated for urinary tract infection is still on antibiotics for that. Patient states she still has some dysuria. Patient admits to nausea but denies any vomiting. Patient states the pain radiates into her back between her shoulder blades. Patient also admits to history of anxiety. 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) Shortness of breath Home Medications aspirin 81 mg tablet,delayed release 81 mg PO DAILY 03/20/21 [History Last Taken Unknown] clopidogrel 75 mg tablet 75 mg PO DAILY #90 tablet 03/20/21 [Rx Last Taken Unknown] famotidine 40 mg tablet 40 mg PO DAILY 04/07/21 [History Last Taken Unknown] alprazolam 0.5 mg PO BID PRN 7 Days #14 tab 04/21/21 [Rx Last Taken Unknown] nitrofurantoin monohydrate/macrocrystals 100 mg capsule 100 mg PO BID cap 05/01/21 [History Last Taken Unknown] Allergy/AdvReac Type Severity Reaction Status Date / Time morphine Allergy Hives Verified 05/03/21 10:09 amlodipine AdvReac Intermediate chest Verified 05/03/21 10:09 pain and cannot breathe carvedilol [From Coreg] AdvReac Intermediate throat Verified 05/03/21 10:09 closing up and chest pressure citalopram [From Celexa] AdvReac NAUSEATED Verified 05/03/21 10:09 AND IRRITABLE lisinopril AdvReac SOB, chest Verified 05/03/21 10:09 tightness,throat closing venlafaxine [From Effexor] AdvReac DIDN'T Verified 05/03/21 10:09 WORK Family History Father CAD (coronary artery disease) Myocardial infarction Surgical History H/O section History of coronary artery stent placement (12/18/20) History of left heart catheterization (01/25/21) Social History household members: none Smoking Status: Former smoker quit date: 01/23/21 pack-years: 30 how long ago did patient quit smokin days ago alcohol intake: never substance use type: does not use caffeine: Yes Type: coffee Number of servings: 2 ROS ROS ED Constitutional Constitutional ED: Denies chills or fever(s) Eyes Eyes: Denies blurry vision or change in vision ENT ENT ED: Denies rhinorrhea or sore throat Cardiovascular Cardiovascular: Reports chest pain and palpitations Respiratory/Chest Respiratory/Chest: Denies cough or dyspnea Gastrointestinal Gastrointestinal: Reports nausea; Denies vomiting Genitourinary Genitourinary ED: Reports dysuria; Denies hematuria Musculoskeletal Musculoskeletal: Reports back pain; Denies neck pain Integumentary Denies abscess or rash Neurologic Neurologic: Denies headache(s) or weakness Psychiatric Psychiatric: Reports anxiety Allergic/Immunologic Allergic/Immunologic ED: Denies mouth swelling or urticaria EXAM Physical Exam Const Vital Signs: 05/03/21 09:57 05/03/21 10:00 05/03/21 10:15 Temperature 98.1 F Temperature Source Oral Pulse Rate 82 Respiratory Rate 18 Respiratory Effort Normal Non-Labored Blood Pressure 184/101 H Blood Pressure Mean 128 Pulse Ox 97 98 Oxygen Delivery Method Room Air Room Air 05/03/21 11:23 Temperature Temperature Source Pulse Rate 64 Respiratory Rate 15 Respiratory Effort Blood Pressure 164/92 H Blood Pressure Mean 116 Pulse Ox 100 Oxygen Delivery Method Room Air Positive well nourished, well developed and obese General Appearance ED: well developed Nutritional Appearance: obese HEENT normocephalic and atraumatic Eyes PERRL and EOMs intact bilaterally Neck supple and no JVD Chest Wall palpation of chest normal Resp normal respiratory effort and clear to auscultation bilaterally Effort and Inspection: Negative for respiratory distress Cardio regular rate, regular rhythm and no murmurs GI normal to inspection, nondistended, normoactive bowel sounds, soft to palpation and non-tender Palpation: soft Extremity normal to inspection General Extremety ED: Negative for edema or tenderness General Extremity: Negative for edema Neuro oriented x3, CN's II-XII intact bilaterally and no sensory deficits noted Sensorium / Orientation: awake and alert Motor Exam: strength 5/5 throughout Psych mental status grossly normal MDM MDM MDM Narrative Medical decision making narrative: Patient was given aspirin and sublingual nitroglycerin here. EKG was obtained. On my interpretation, it showed a normal sinus rhythm with a rate of 83. NE interval, QRS interval, and QTc intervals were all normal. [place] was normal. There are no acute ST or T wave changes. Portable 1 view chest x-ray was obtained. On my interpretation, lung petit are hyperinflated but clear. There is normal cardiac silhouette. Bony thorax is normal. There is no acute process noted. Radiologist also interpreted the x- ray and agrees. CBC, basic metabolic profile, troponin were all within normal limits. Urinalysis does not show any evidence of urinary tract infection. Patient has a HEART score of 3. Patient was advised this is low risk for acute cardiac event. Patient was advised of her findings. Patient was instructed to continue her medications as previously prescribed. Patient was instructed to follow-up with her primary care physician in 5 to 7 days. Patient understood and was agreeable with the plan. All questions were answered. Lab Data Attestation: I reviewed the patient's lab results. Labs: Laboratory Results - last 24 hr 05/03/21 05/03/21 05/03/21 10:00 10:00 10:33 WBC 4.8 RBC 4.52 Hgb 13.0 Hct 40.1 MCV 88.7 MCH 28.8 MCHC 32.4 RDW Std Deviation 43.7 RDW Coeff of Dona 13.2 Plt Count 280 MPV 10.4 Immature Gran % (Auto) 0.200 Neut % (Auto) 42.3 L Lymph % (Auto) 45.3 H [place] % (Auto) 8.7 Eos % (Auto) 2.5 Baso % (Auto) 1.0 Absolute Neuts (auto) 2.0 Absolute Lymphs (auto) 2.19 Nucleated RBC % 0 Sodium 140 Potassium 3.5 Chloride 106 Carbon Dioxide 28.0 Anion Gap 6 BUN 10 Creatinine 0.74 Estim Creat Clear Calc 65.58 Est GFR (MDRD) Af Amer 105 Est GFR (MDRD) Non-Af 86 BUN/Creatinine Ratio 13.5 Glucose 79 Calcium 9.5 Troponin I < 0.015 Urine Color Yellow Urine Clarity Clear Urine pH 7.0 Ur Specific [place] 1.005 Urine Protein Negative Urine Glucose (UA) Normal Urine Ketones Negative Urine Occult Blood Negative Urine Nitrite Negative Urine Bilirubin Negative Urine Urobilinogen Normal Ur Leukocyte Esterase Negative Urine RBC 0 SEEN Urine WBC 0 SEEN Ur Squamous Epith Cells 0 SEEN Urine Bacteria 0 SEEN Urine Mucus 0 SEEN Radiography Chest X-Ray - ED: 1 View, Read by ED Physician, Read by Radiologist and Normal Diagnostic Testing: Radiology Impression Chest X-Ray 05/03/21 11:15 IMPRESSION: Hyperinflation. No acute abnormality is seen. Stable examination. Electronically Signed: Darrell Wan MD at 11:40 EDT , Service support , EKG Initial EKG: Attestation: I personally reviewed and interpreted this EKG as follows: Interpretation: Sinus Rhythm (83) and No Acute Injury Pattern Prior EKG tracings: available for review Prior: Unchanged (04/25/2021) Discharge Plan Triage Chief Complaint: Chest Pain ED Provider: Sincere Burroughs Dx/Rx/DC Orders Clinical Impression: Chest pain of uncertain etiology Instructions: ED Chest Pain, Uncertain Cause Prescriptions: No Action aspirin [Adult Low Dose Aspirin] 81 mg tablet,delayed release (DR/EC) 81 mg PO DAILY RF: 0 clopidogrel [Plavix] 75 mg tablet 75 mg PO DAILY Qty: 90 RF: 3 nitrofurantoin monohyd/m-cryst 100 mg capsule 100 mg PO BID RF: 0 alprazolam 0.5 mg tablet 0.5 mg PO BID PRN (Reason: anxiety) 7 Days Qty: 14 RF: 0 famotidine [Pepcid] 40 mg tablet 40 mg PO DAILY RF: 0 Primary Care Provider: Ellis Crandall Referrals: Ellis Crandall MD [Primary Care Provider] - 5-7 Days Disposition Disposition: Home, self care
[2021-05-03 10:15] VITALS: O2SAT 98
[2021-05-03 10:21] LABS: Absolute Lymphocyte Count 2.19 X10^3/uL (0.83-4.51); Basophil# 0.05 X10^3/uL; Eosinophil# 0.12 X10^3/uL; Eosinophils% 2.5 % (0-5); Hematocrit 40.1 % (37-47); Lymphocyte # 2.19 X10^3/ul (0.83-4.51); Lymphocyte % 45.3 % (19-41); Mean Corp Hgb Conc 32.4 g/dL (32-36); Mean Corpuscular Hgb 28.8 pg (27.0-32.0); Mean Corpuscular Volume 88.7 fL (81-99); Mean Platelet Vol. 10.4 fl (6.2-12.0); Monocyte# 0.42 X10^3/uL; Monocyte% 8.7 % (0-10); NRBC Flagged by Analyzer 0 % (0-5); Neutrophil # 2.04 X10^3/uL (2.7-7.7); Neutrophil % 42.3 % (47-70); Platelet Count 280 K/mm3 (150-450); RBC Distribution Width CV 13.2 % (11.6-14.6); RBC Distribution Width SD 43.7 fl (35.1-43.9); Red Blood Count 4.52 M/mm3 (4.2-5.4); White Blood Count 4.8 K/mm3 (4.4-11.0)
[2021-05-03 10:30] LABS: Anion Gap 6 (5-15); BUN 10 mg/dL (7-18); BUN/Creat Ratio 13.5 RATIO (10-20); Calcium,Total 9.5 mg/dL (8.5-10.1); Chloride 106 mmol/L (98-107); Creatinine, Serum 0.74 mg/dL (0.55-1.02); EST Glomerular Filtration Rate 86 mL/min (>60); Est Glom Filt Rate - Afr Amer 105 mL/min (>60); Estimated Creatinine Clearance 65.58 ml/min; Glucose 79 mg/dL (74-106); Potassium 3.5 mmol/L (3.5-5.1); Sodium Level 140 mmol/L (136-145)
[2021-05-03 10:38] LABS: Bacteria 0 SEEN /hpf (None Seen); Mucous, Urine 0 SEEN /hpf (<or=2+); Red Blood Cells-Urine 0 SEEN /hpf (0-5); Squamous Epithelial Cells - UA 0 SEEN /hpf (5-10); White Blood Cells 0 SEEN /hpf (0-5)
[2021-05-03 10:40] LABS: Color, Urine Yellow (Yellow); Glucose, Dipstick Normal (Normal); Ketone-Dipstick Negative (Negative); Leukocyte Esterase-Dipstick Negative /ul (Negative); Nitrite-Dipstick Negative (Negative); Occult Blood-Urine Negative /ul (Negative); Protein-Dipstick Negative (Negative); Specific Gravity, Urine 1.005 (1.002-1.030); Urine Bilirubin Dipstick Negative (Negative); Urine Clarity Clear (Clear); Urine Urobilinogen Normal (Normal)
[2021-05-03] MEDS: Aspirin 81 MG TAB.CHEW 324 MG PO (10:41)
--- NOTE | 2021-05-03 11:15 | RAD_ITS ---
STUDY: X-RAY CHEST REASON FOR EXAM: Female, 55 years old. Chest pain TECHNIQUE: Single AP portable view of the chest. COMPARISON: Comparison is made with prior study dated 04/25/2021 FINDINGS: EKG electrodes are seen. There is hyperinflation of the lungs consistent with chronic obstructive lung disease (COPD). There is no demonstrated pleural abnormality. Normal size heart. Normal mediastinum and kirsten. Normal visualized pulmonary arteries. Normal visualized aortic arch and descending thoracic aorta. Normal visualized thoracic spine. Normal visualized ribs, clavicles, and shoulders. There is no demonstrated abnormality of the visualized soft tissue structures of the upper abdomen. RAD/Chest 1 View (Portable) IMPRESSION: Hyperinflation. No acute abnormality is seen. Stable examination. Electronically Signed: Darrell Wan MD at 11:40 EDT , Service support ,
[2021-05-03 11:23] VITALS: BP 164/92; PULSE 64; RESP 15; O2SAT 100
[2021-05-03 12:06] VITALS: BP 165/97
== END 2021-05-03 12:20 | disposition home or self-care (01) ==
PROVIDERS: Emergency Provider Emergency Medicine; PCP Family Medicine
DX: R07.9 Chest pain, unspecified (principal); E66.9 Obesity, unspecified; N39.0 Urinary tract infection, site not specified; I25.10 Atherosclerotic heart disease of native coronary artery without angina pectoris; J44.9 Chronic obstructive pulmonary disease, unspecified; K21.9 Gastro-esophageal reflux disease without esophagitis; I10 Essential (primary) hypertension; I25.5 Ischemic cardiomyopathy; I25.2 Old myocardial infarction; F60.3 Borderline personality disorder; F31.9 Bipolar disorder, unspecified; Z87.891 Personal history of nicotine dependence; Z95.5 Presence of coronary angioplasty implant and graft; Z82.49 Family history of ischemic heart disease and other diseases of the circulatory system; F41.9 Anxiety disorder, unspecified; Z79.82 Long term (current) use of aspirin; Z79.899 Other long term (current) drug therapy
CPT/HCPCS: 71045; 80048; 81001; 84484; 85025; 93005; 99285; A4216

== ENCOUNTER 2021-05-10 19:26 | Emergency (ER) | payer MEDICAID, SELFPAY ==
[2021-05-03 13:11] VITALS: BMI 22.6
[2021-05-10 19:26] VITALS: BP 163/96; PULSE 87; RESP 18; TEMP 36.5; O2SAT 99; BMI 21.4
--- NOTE | 2021-05-10 19:45 | EKG12_ITS ---
Test Reason : CP Blood Pressure : / mmHG Vent. Rate : 086 BPM Atrial Rate : 086 BPM P-R Int : 152 ms QRS Dur : 092 ms QT Int : 372 ms P-R-T Axes : 076 058 045 degrees QTc Int : 445 ms Normal sinus rhythm Nonspecific ST abnormality Abnormal ECG Confirmed by GARLAND KING, ALEX ([id number]), restaurant expeditor FILI CASTILLO ([id number]) on 05/12/2021 10:45:27 A M Referred By: LAURIE Confirmed By:BARRETT HAQUE MD
--- NOTE | 2021-05-10 19:48 | ED.VIS.CHEST ---
HPI History of Present Illness Chief Complaint: Chest Pain Informant: patient Narrative Narrative: 55-year-old female presents for evaluation of chest pain shortness of breath. She has a history of asthma COPD overlap syndrome, STEMI in November and hypertension. She tells me that for the past several months she has had intermittent shortness of breath. Over the past 3 days it has been worse. She states that her chest feels very heavy and she cannot catch her breath. Then over the past day she has developed midsternal chest pain that is worse when she palpates it. She denies any cough or fever. 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) Shortness of breath Home Medications aspirin 81 mg tablet,delayed release 81 mg PO DAILY 03/20/21 [History Last Taken Unknown] clopidogrel 75 mg tablet 75 mg PO DAILY #90 tablet 03/20/21 [Rx Last Taken Unknown] albuterol sulfate 90 mcg/actuation aerosol inhaler 2 puff INHALATION Q6H PRN 05/03/21 [History Last Taken Unknown] lamotrigine 25 mg tablet 25 mg PO ONCE 05/03/21 [History Last Taken Unknown] Allergy/AdvReac Type Severity Reaction Status Date / Time morphine Allergy Hives Verified 05/10/21 19:34 amlodipine AdvReac Intermediate chest Verified 05/10/21 19:34 pain and cannot breathe carvedilol [From Coreg] AdvReac Intermediate throat Verified 05/10/21 19:34 closing up and chest pressure citalopram [From Celexa] AdvReac NAUSEATED Verified 05/10/21 19:34 AND IRRITABLE lisinopril AdvReac SOB, chest Verified 05/10/21 19:34 tightness,throat closing venlafaxine [From Effexor] AdvReac DIDN'T Verified 05/10/21 19:34 WORK Family History Father CAD (coronary artery disease) Myocardial infarction Surgical History H/O section History of coronary artery stent placement (12/18/20) History of left heart catheterization (01/25/21) Social History household members: none Smoking Status: Former smoker quit date: 01/23/21 pack-years: 30 how long ago did patient quit smokin days ago alcohol intake: never substance use type: does not use caffeine: Yes Type: coffee Number of servings: 2 ROS ROS ED Constitutional Constitutional ED: Denies chills or weight loss Eyes Eyes: Denies change in vision or diplopia ENT ENT ED: Denies ear pain, rhinorrhea or sore throat Cardiovascular Cardiovascular: Reports chest pain; Denies orthopnea, palpitations or racing heartbeat Respiratory/Chest Respiratory/Chest: Reports dyspnea; Denies cough or orthopnea Gastrointestinal Gastrointestinal: Denies abdominal pain, diarrhea, nausea or vomiting Genitourinary Genitourinary ED: Denies dysuria, hematuria or urinary frequency Musculoskeletal Musculoskeletal: Denies arthralgias or myalgias Integumentary Denies abscess or rash Neurologic Neurologic: Denies headache(s) or weakness Psychiatric Psychiatric: Denies anxiety, depression, suicidal ideation or suicidal thoughts Endocrine Endocrinology: Denies polydipsia, polyphagia or polyuria Allergic/Immunologic Allergic/Immunologic ED: Denies mouth swelling, tongue swelling or urticaria EXAM Physical Exam Const Vital Signs: 05/10/21 19:26 05/10/21 20:03 05/10/21 20:59 Temperature 97.7 F L Temperature Source Temporal Pulse Rate 87 90 82 Respiratory Rate 18 20 H 16 Respiratory Effort Short of Breath Respiratory Depth Shallow Respiratory Pattern Normal Blood Pressure 163/96 H 136/80 H Blood Pressure Mean 118 98 Pulse Ox 99 98 98 Oxygen Delivery Method Room Air Room Air Room Air 05/10/21 21:00 Temperature Temperature Source Pulse Rate 88 Respiratory Rate 19 H Respiratory Effort Respiratory Depth Respiratory Pattern Blood Pressure 151/79 H Blood Pressure Mean 103 Pulse Ox 100 Oxygen Delivery Method Room Air Positive well nourished and well developed General Appearance ED: well developed HEENT Reports normocephalic, head/scalp atraumatic and moist mucous membranes Eyes PERRL and EOMs intact bilaterally Neck no lymphadenopathy, supple and no JVD Resp normal respiratory effort and clear to auscultation bilaterally Cardio regular rate, regular rhythm and no murmurs GI normal to inspection, nondistended, normoactive bowel sounds and non-tender Palpation: soft Back/Spine no CVA tenderness and normal ROM Extremity normal to inspection General Extremety ED: Negative for edema General Extremity: Negative for edema Neuro oriented x3 and CN's II-XII intact bilaterally Sensorium / Orientation: alert Motor Exam: strength 5/5 throughout Psych mental status grossly normal Mood & Affect: Negative for depressed or tearful Skin no rashes or lesions noted and no wounds Heart Score History: Slightly/Non-Suspicious ECG: Normal Age: >45 - <65 years Risk Factors: >/= 3 Risk Factors or History of CAD Troponin: </= Normal Limit Score: 3 MDM MDM MDM Narrative Medical decision making narrative: EKG demonstrates a normal sinus rhythm at a rate of 86 bpm. No concerning features of ACS or ectopy. Troponin is negative. D-dimer is negative. Patient states that for the moment she wakes up until now she has been short of breath and feeling this pressure. This is been ongoing for several months. My interpretation of her chest x-ray is no acute process. At this point she is 100% on room air.. She is breathing 13 times a minute at rest. Heart rate is 86 and her blood pressure is stable. 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 Patient is very frustrated by her dyspnea which is understandable. Lab Data Attestation: I reviewed the patient's lab results. Labs: Laboratory Results - last 24 hr 05/10/21 05/10/21 05/10/21 19:40 19:40 19:40 WBC 7.2 RBC 4.44 Hgb 12.9 Hct 39.1 MCV 88.1 MCH 29.1 MCHC 33.0 RDW Std Deviation 42.5 RDW Coeff of Dona 13.1 Plt Count 266 MPV 10.8 Immature Gran % (Auto) 0.300 Neut % (Auto) 42.1 L Lymph % (Auto) 48.3 H [place] % (Auto) 6.4 Eos % (Auto) 2.2 Baso % (Auto) 0.7 Absolute Neuts (auto) 3.1 Absolute Lymphs (auto) 3.49 Nucleated RBC % 0 D-Dimer Quant (PE/DVT) Cancelled Sodium 135 L Potassium 3.9 Chloride 104 Carbon Dioxide 23.0 Anion Gap 8 BUN 9 Creatinine 0.70 Estim Creat Clear Calc 72.66 Est GFR (MDRD) Af Amer 111 Est GFR (MDRD) Non-Af 92 BUN/Creatinine Ratio 12.8 Glucose 103 Calcium 9.6 Troponin I < 0.015 05/10/21 20:55 WBC RBC Hgb Hct MCV MCH MCHC RDW Std Deviation RDW Coeff of Dona Plt Count MPV Immature Gran % (Auto) Neut % (Auto) Lymph % (Auto) [place] % (Auto) Eos % (Auto) Baso % (Auto) Absolute Neuts (auto) Absolute Lymphs (auto) Nucleated RBC % D-Dimer Quant (PE/DVT) <= 0.27 Sodium Potassium Chloride Carbon Dioxide Anion Gap BUN Creatinine Estim Creat Clear Calc Est GFR (MDRD) Af Amer Est GFR (MDRD) Non-Af BUN/Creatinine Ratio Glucose Calcium Troponin I Radiography Diagnostic Testing: Radiology Impression Chest X-Ray 05/10/21 20:05 IMPRESSION: Normal x-ray examination of the chest. Electronically Signed: Franklin Bragg MD at 21:01 EDT Tel , Service support , EKG Initial EKG: Attestation: I personally reviewed and interpreted this EKG as follows: Treatment and Re-Evaluation Comments:: EKG is a normal sinus rhythm. No concerning features of ACS or ectopy noted. There is no significant change from EKG dated 24 Apr 2021. Discharge Plan Triage Chief Complaint: Chest Pain ED Provider: Alhaji Ceja Dx/Rx/DC Orders Prescriptions: No Action aspirin [Adult Low Dose Aspirin] 81 mg tablet,delayed release (DR/EC) 81 mg PO DAILY RF: 0 clopidogrel [Plavix] 75 mg tablet 75 mg PO DAILY Qty: 90 RF: 3 lamotrigine [Lamictal] 25 mg tablet 25 mg PO ONCE RF: 0 albuterol sulfate 90 mcg/actuation HFA aerosol inhaler 2 puff inhalation Q6H PRN (Reason: Shortness Of Breath Or Wheezing) RF: 0 Primary Care Provider: Ellis Crandall
[2021-05-10 20:01] LABS: Absolute Lymphocyte Count 3.49 X10^3/uL (0.83-4.51); Absolute Neutrophil Count 3.1 X10^3/uL (2.0-7.7); Basophil# 0.05 X10^3/uL; Basophil% 0.7 % (0-1); Eosinophil# 0.16 X10^3/uL; Eosinophils% 2.2 % (0-5); Hematocrit 39.1 % (37-47); Hemoglobin 12.9 g/dL (12.0-15.0); Lymphocyte # 3.49 X10^3/ul (0.83-4.51); Lymphocyte % 48.3 % (19-41); Mean Corpuscular Hgb 29.1 pg (27.0-32.0); Mean Corpuscular Volume 88.1 fL (81-99); Mean Platelet Vol. 10.8 fl (6.2-12.0); Monocyte# 0.46 X10^3/uL; Monocyte% 6.4 % (0-10); NRBC Flagged by Analyzer 0 % (0-5); Neutrophil # 3.05 X10^3/uL (2.7-7.7); Neutrophil % 42.1 % (47-70); Platelet Count 266 K/mm3 (150-450); RBC Distribution Width CV 13.1 % (11.6-14.6); RBC Distribution Width SD 42.5 fl (35.1-43.9); Red Blood Count 4.44 M/mm3 (4.2-5.4); White Blood Count 7.2 K/mm3 (4.4-11.0)
[2021-05-10 20:03] VITALS: PULSE 90; RESP 20; RESP 22; O2SAT 98
[2021-05-10] MEDS: Albuterol 2.5 MG/3 ML VIAL.NEB. INHALATION (20:03)
[2021-05-10] MEDS: Ipratropium/Albuterol Sulfate 3 ML AMPUL.NEB INHALATION (20:03)
--- NOTE | 2021-05-10 20:05 | RAD_ITS ---
STUDY: X-RAY CHEST REASON FOR EXAM: Female, 55 years old. Chest pain TECHNIQUE: Single frontal view of the chest. COMPARISON: 05/03/21. FINDINGS: The lungs are clear and expanded. There is no demonstrated pleural abnormality. Normal size heart. Normal mediastinum and kirsten. Normal visualized pulmonary arteries. Normal visualized aortic arch and descending thoracic aorta. Normal visualized thoracic spine. Normal visualized ribs, clavicles, and shoulders. There is no demonstrated abnormality of the visualized soft tissue structures of the upper abdomen. RAD/Chest 1 View (Portable) IMPRESSION: Normal x-ray examination of the chest. Electronically Signed: Franklin Bragg MD at 21:01 EDT Tel , Service support ,
[2021-05-10 20:18] LABS: Anion Gap 8 (5-15); BUN 9 mg/dL (7-18); BUN/Creat Ratio 12.8 RATIO (10-20); Calcium,Total 9.6 mg/dL (8.5-10.1); Chloride 104 mmol/L (98-107); EST Glomerular Filtration Rate 92 mL/min (>60); Est Glom Filt Rate - Afr Amer 111 mL/min (>60); Estimated Creatinine Clearance 72.66 ml/min; Glucose 103 mg/dL (74-106); Potassium 3.9 mmol/L (3.5-5.1); Sodium Level 135 mmol/L (136-145)
[2021-05-10 20:59] VITALS: BP 136/80; PULSE 82; RESP 16; O2SAT 98
[2021-05-10 21:00] VITALS: BP 151/79; PULSE 88; RESP 19; O2SAT 100
[2021-05-10 21:22] LABS: D-Dimer Quantitative (DVT/PE) <= 0.27 FEU/ug/m (0.27-0.49)
== END 2021-05-10 21:39 | disposition home or self-care (01) ==
PROVIDERS: Emergency Provider Emergency Medicine; PCP Family Medicine
DX: R07.9 Chest pain, unspecified (principal); F60.3 Borderline personality disorder; I10 Essential (primary) hypertension; I25.10 Atherosclerotic heart disease of native coronary artery without angina pectoris; I25.5 Ischemic cardiomyopathy; K21.9 Gastro-esophageal reflux disease without esophagitis; J44.9 Chronic obstructive pulmonary disease, unspecified; I25.2 Old myocardial infarction; Z79.82 Long term (current) use of aspirin; Z79.899 Other long term (current) drug therapy; Z87.891 Personal history of nicotine dependence
CPT/HCPCS: 71045; 80048; 84484; 85025; 85379; 93005; 94640; 99251; 99284; A4216; G0463

== ENCOUNTER 2021-05-16 18:12 | Observation (INO) | payer MEDICAID, SELFPAY ==
[2021-05-16 18:13] VITALS: BP 187/104; BP 187/107; PULSE 66; RESP 18; TEMP 36.6; O2SAT 100; BMI 22.1
--- NOTE | 2021-05-16 18:31 | EKG12_ITS ---
Test Reason : CP Blood Pressure : / mmHG Vent. Rate : 067 BPM Atrial Rate : 067 BPM P-R Int : 156 ms QRS Dur : 090 ms QT Int : 416 ms P-R-T Axes : 055 068 059 degrees QTc Int : 439 ms Normal sinus rhythm Normal ECG Confirmed by GLEN KING, JOE ([id number]), magazine editor FILI CASTILLO ([id number]) on 05/18/2021 12:26:44 PM Referred By: IVAN Confirmed By:JOE CARROLL MD
[2021-05-16 18:44] VITALS: BP 177/94; PULSE 68; RESP 20; O2SAT 100
--- NOTE | 2021-05-16 18:46 | ED.VIS.CHEST ---
HPI History of Present Illness Chief Complaint: Chest Pain Informant: patient Narrative Narrative: 55-year-old female presents with concern for chest pain and shortness of breath. Patient states that it is been present since her [place] which she had in November. Patient had stents placed at this time. States it is been worsening over the past few days. Is due to have a cardiac catheterization in 5 days. Patient states that she cannot wait. Denies any fever chills or cough. Patient stopped smoking 3 months ago. 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) Shortness of breath Home Medications aspirin 81 mg tablet,delayed release 81 mg PO DAILY 03/20/21 [History Last Taken Unknown] clopidogrel 75 mg tablet 75 mg PO DAILY #90 tablet 03/20/21 [Rx Last Taken Unknown] albuterol sulfate 90 mcg/actuation aerosol inhaler 2 puff INHALATION Q6H PRN 05/03/21 [History Last Taken Unknown] lamotrigine 25 mg tablet 25 mg PO ONCE 05/03/21 [History Last Taken Unknown] Allergy/AdvReac Type Severity Reaction Status Date / Time morphine Allergy Hives Verified 05/10/21 19:34 amlodipine AdvReac Intermediate chest Verified 05/10/21 19:34 pain and cannot breathe carvedilol [From Coreg] AdvReac Intermediate throat Verified 05/10/21 19:34 closing up and chest pressure citalopram [From Celexa] AdvReac NAUSEATED Verified 05/10/21 19:34 AND IRRITABLE lisinopril AdvReac SOB, chest Verified 05/10/21 19:34 tightness,throat closing venlafaxine [From Effexor] AdvReac DIDN'T Verified 05/10/21 19:34 WORK Family History Father CAD (coronary artery disease) Myocardial infarction Surgical History H/O section History of coronary artery stent placement (12/18/20) History of left heart catheterization (01/25/21) Social History household members: none Smoking Status: Former smoker quit date: 01/23/21 pack-years: 30 how long ago did patient quit smokin days ago alcohol intake: never substance use type: does not use caffeine: Yes Type: coffee Number of servings: 2 ROS ROS ED Constitutional Constitutional ED: Denies chills, fever(s) or sweats Eyes Eyes: Denies blurry vision, change in vision or diplopia ENT ENT ED: Denies rhinorrhea or sore throat Cardiovascular Cardiovascular: Reports chest pain; Denies orthopnea, palpitations or racing heartbeat Respiratory/Chest Respiratory/Chest: Reports dyspnea; Denies cough, dyspnea on exertion, orthopnea or sputum Gastrointestinal Gastrointestinal: Reports nausea; Denies abdominal pain, constipation, diarrhea, melena or vomiting Genitourinary Genitourinary ED: Denies dysuria, hematuria or urinary frequency Musculoskeletal Musculoskeletal: Denies arthralgias, myalgias or neck pain Integumentary Denies rash Neurologic Neurologic: Denies headache(s), paresthesias or weakness Psychiatric Psychiatric: Denies anxiety or depression Hematologic/Lymphatic Hematologic/Lymphatic: Denies easy bleeding or easy bruising Allergic/Immunologic Allergic/Immunologic ED: Denies mouth swelling or tongue swelling EXAM Physical Exam Const Vital Signs: 05/16/21 18:13 05/16/21 18:19 05/16/21 18:31 Temperature 97.8 F Temperature Source Temporal Pulse Rate 66 Respiratory Rate 18 Respiratory Effort Normal Blood Pressure 187/104 H Blood Pressure Mean 131 Pulse Ox 100 Oxygen Delivery Method Room Air Room Air 05/16/21 18:44 Temperature Temperature Source Pulse Rate 68 Respiratory Rate 20 H Respiratory Effort Blood Pressure 177/94 H Blood Pressure Mean 121 Pulse Ox 100 Oxygen Delivery Method Room Air Positive well nourished and well developed General Appearance ED: well developed HEENT Reports TM's clear and moist mucous membranes normocephalic and atraumatic Tympanic Membrane ED: Yes TM's clear Eyes PERRL and EOMs intact bilaterally Neck no lymphadenopathy, supple and no JVD Chest Wall inspection of chest normal Resp normal respiratory effort and clear to auscultation bilaterally Cardio regular rate, S1 normal heart sound, S2 normal heart sound and no murmurs Peripheral Pulses: pulses 2+ throughout GI soft to palpation, non-tender and non-distended Back/Spine no CVA tenderness and no thoracic nor lumbar tenderness Extremity normal to inspection General Extremety ED: Negative for edema or tenderness General Extremity: Negative for edema Neuro oriented x3, CN's II-XII intact bilaterally and no sensory deficits noted Sensorium / Orientation: alert Motor Exam: strength 5/5 throughout Psych mental status grossly normal Skin no rashes or lesions noted MDM MDM MDM Narrative Medical decision making narrative: Patient appears well nontoxic. Vital signs within normal limits. EKG nonischemic. Troponin negative. Chest x-ray shows no evidence of acute cardiomegaly or infiltrate or pneumothorax. Interpreted by myself. Radiology concurs. Spoke with cardiology on-call Dr. Jackson who agreed with the patient being admitted. Patient stable at time of admission. Lab Data Attestation: I reviewed the patient's lab results. Labs: Laboratory Results - last 24 hr 05/16/21 05/16/21 19:18 19:18 WBC 4.7 RBC 4.36 Hgb 12.6 Hct 37.8 MCV 86.7 MCH 28.9 MCHC 33.3 RDW Std Deviation 41.7 RDW Coeff of Dona 13.2 Plt Count 264 MPV 10.5 Immature Gran % (Auto) 0.200 Neut % (Auto) 46.1 L Lymph % (Auto) 44.1 H [place] % (Auto) 7.0 Eos % (Auto) 1.7 Baso % (Auto) 0.9 Absolute Neuts (auto) 2.2 Absolute Lymphs (auto) 2.07 Nucleated RBC % 0 Sodium 137 Potassium 3.4 L Chloride 104 Carbon Dioxide 23.0 Anion Gap 10 BUN 10 Creatinine 0.64 Estim Creat Clear Calc 79.48 Est GFR (MDRD) Af Amer 124 Est GFR (MDRD) Non-Af 102 BUN/Creatinine Ratio 15.6 Glucose 83 Calcium 9.2 Troponin I High Sens 4.6 Radiography Chest X-Ray - ED: 1 View, Read by ED Physician, Read by Radiologist and Normal Diagnostic Testing: Radiology Impression Chest X-Ray 05/16/21 18:47 IMPRESSION: Normal x-ray examination of the chest. Electronically Signed: Franklin Bragg MD at 19:10 EDT Tel , Service support , Rhythm Strip Rhythm Strip: Sinus Rhythm Rate: 67 Ectopy: None EKG Initial EKG: Attestation: I personally reviewed and interpreted this EKG as follows: Comments: Normal sinus rhythm at 67 bpm. MT interval of 156 ms. QTC of [address] No evidence of ST elevation or depression at this time. Discharge Plan Triage Chief Complaint: Chest Pain ED Provider: Yoan Duran Dx/Rx/DC Orders Prescriptions: No Action aspirin [Adult Low Dose Aspirin] 81 mg tablet,delayed release (DR/EC) 81 mg PO DAILY RF: 0 clopidogrel [Plavix] 75 mg tablet 75 mg PO DAILY Qty: 90 RF: 3 lamotrigine [Lamictal] 25 mg tablet 25 mg PO ONCE RF: 0 albuterol sulfate 90 mcg/actuation HFA aerosol inhaler 2 puff inhalation Q6H PRN (Reason: Shortness Of Breath Or Wheezing) RF: 0 Primary Care Provider: Ellis Crandall Referrals: Ellis Crandall MD [Primary Care Provider] - Disposition Disposition: Acute Care Hospital [facility]
--- NOTE | 2021-05-16 18:47 | RAD_ITS ---
STUDY: X-RAY CHEST REASON FOR EXAM: Female, 55 years old. Chest pain TECHNIQUE: Single frontal view of the chest. COMPARISON: 05/10/21. FINDINGS: The lungs are clear and expanded. There is no demonstrated pleural abnormality. Normal size heart. Normal mediastinum and kirsten. Normal visualized pulmonary arteries. There is atherosclerotic calcification of the aortic arch with tortuosity. Normal visualized thoracic spine. Normal visualized ribs, clavicles, and shoulders. There is no demonstrated abnormality of the visualized soft tissue structures of the upper abdomen. RAD/Chest 1 View (Portable) IMPRESSION: Normal x-ray examination of the chest. Electronically Signed: Franklin Bragg MD at 19:10 EDT Tel , Service support ,
[2021-05-16 19:36] LABS: Absolute Lymphocyte Count 2.07 X10^3/uL (0.83-4.51); Absolute Neutrophil Count 2.2 X10^3/uL (2.0-7.7); Basophil# 0.04 X10^3/uL; Basophil% 0.9 % (0-1); Eosinophil# 0.08 X10^3/uL; Eosinophils% 1.7 % (0-5); Hematocrit 37.8 % (37-47); Hemoglobin 12.6 g/dL (12.0-15.0); Lymphocyte # 2.07 X10^3/ul (0.83-4.51); Lymphocyte % 44.1 % (19-41); Mean Corp Hgb Conc 33.3 g/dL (32-36); Mean Corpuscular Hgb 28.9 pg (27.0-32.0); Mean Corpuscular Volume 86.7 fL (81-99); Mean Platelet Vol. 10.5 fl (6.2-12.0); Monocyte# 0.33 X10^3/uL; NRBC Flagged by Analyzer 0 % (0-5); Neutrophil # 2.16 X10^3/uL (2.7-7.7); Neutrophil % 46.1 % (47-70); Platelet Count 264 K/mm3 (150-450); RBC Distribution Width CV 13.2 % (11.6-14.6); RBC Distribution Width SD 41.7 fl (35.1-43.9); Red Blood Count 4.36 M/mm3 (4.2-5.4); White Blood Count 4.7 K/mm3 (4.4-11.0)
[2021-05-16 20:00] LABS: Anion Gap 10 (5-15); BUN 10 mg/dL (7-18); BUN/Creat Ratio 15.6 RATIO (10-20); Calcium,Total 9.2 mg/dL (8.5-10.1); Chloride 104 mmol/L (98-107); Creatinine, Serum 0.64 mg/dL (0.55-1.02); EST Glomerular Filtration Rate 102 mL/min (>60); Est Glom Filt Rate - Afr Amer 124 mL/min (>60); Estimated Creatinine Clearance 79.48 ml/min; Glucose 83 mg/dL (74-106); Potassium 3.4 mmol/L (3.5-5.1); Sodium Level 137 mmol/L (136-145); Troponin-I HS 4.6 pg/mL (3.0-53.7)
[2021-05-16 20:41] VITALS: BP 157/98; PULSE 77; RESP 18; TEMP 36.6; O2SAT 100
--- NOTE | 2021-05-16 21:15 | HP.PCM.HOS_ITS ---
HPI - General General Date of Admission: 05/16/21 Date of Service: 05/16/21 Chief Complaint: chest pain HPI Narrative SJ MOHAN, is a 55 F who presents presents with chest pain. Chest pain has been ongoing ever since her stent placement back in November. Patient had a repeat cardiac catheterization in January for this ongoing chest pain and showed the stent was intact. Patient's continued to have chest pain during this time. More recently, patient has been having increasing shortness of breath. At first it was intermittent but now is all the time. Patient stating that she is short of breath while she is currently 100% on room air with no oxygen supplementation. The emergency room discussed with Dr. Jackson who said that the cardiology will evaluate the patient on the and determine if she can get a cardiac catheterization on that day but to make the patient n.p.o. after midnight. 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) Shortness of breath Home Medications aspirin 81 mg tablet,delayed release 81 mg PO DAILY 03/20/21 [History Last Taken Unknown] clopidogrel 75 mg tablet 75 mg PO DAILY #90 tablet 03/20/21 [Rx Last Taken Unknown] albuterol sulfate 90 mcg/actuation aerosol inhaler 2 puff INHALATION Q6H PRN 05/03/21 [History Last Taken Unknown] lamotrigine 25 mg tablet 25 mg PO ONCE 05/03/21 [History Last Taken Unknown] Allergy/AdvReac Type Severity Reaction Status Date / Time morphine Allergy Hives Verified 05/10/21 19:34 amlodipine AdvReac Intermediate chest Verified 05/10/21 19:34 pain and cannot breathe carvedilol [From Coreg] AdvReac Intermediate throat Verified 05/10/21 19:34 closing up and chest pressure citalopram [From Celexa] AdvReac NAUSEATED Verified 05/10/21 19:34 AND IRRITABLE lisinopril AdvReac SOB, chest Verified 05/10/21 19:34 tightness,throat closing venlafaxine [From Effexor] AdvReac DIDN'T Verified 05/10/21 19:34 WORK Family History Father CAD (coronary artery disease) Myocardial infarction Surgical History H/O section History of coronary artery stent placement (12/18/20) History of left heart catheterization (01/25/21) Social History household members: none Smoking Status: Former smoker quit date: 01/23/21 pack-years: 30 how long ago did patient quit smokin days ago alcohol intake: never substance use type: does not use caffeine: Yes Type: coffee Number of servings: 2 ROS ROS Narrative Denies any sick contacts. Denies any fever chills. Denies any exposure to anyone with COVID-19. All review of systems were negative except as mentioned above in the history of present illness and the other review of systems. Cardiovascular Cardiovascular: Reports chest pain Respiratory/Chest Respiratory/Chest: Reports shortness of breath at rest and shortness of breath with exertion Gastrointestinal Gastrointestinal: Denies abdominal pain, nausea or vomiting Vital Signs Vital Signs Vital Signs: 05/16/21 18:13 05/16/21 18:19 05/16/21 18:31 Temperature 36.6 C Temperature Source Temporal Pulse Rate 66 Respiratory Rate 18 Respiratory Effort Normal Blood Pressure 187/104 H Blood Pressure Mean 131 Pulse Ox 100 Oxygen Delivery Method Room Air Room Air 05/16/21 18:44 05/16/21 20:41 Temperature 36.6 C Temperature Source Temporal Pulse Rate 68 77 Respiratory Rate 20 H 18 Respiratory Effort Blood Pressure 177/94 H 157/98 H Blood Pressure Mean 121 117 Pulse Ox 100 100 Oxygen Delivery Method Room Air Room Air Weight Weight: 55 kg Body Mass Index (BMI) 22.1 Physical Exam Const alert General Appearance: cooperative HEENT normocephalic Neck no lymphadenopathy Resp normal respiratory effort, no retractions and no use of accessory muscles Cardio regular rate, regular rhythm, S1 normal heart sound and S2 normal heart sound GI normal to inspection, nondistended, normoactive bowel sounds, soft to palpation, non-tender and non-distended Extremity normal to inspection Extremity Narrative: No edema Skin no rashes or lesions noted and no wounds Psych Mood & Affect: anxious Results Lab / Micro Data Attestation: I reviewed the patient's lab results. Result Diagrams: 05/16/21 19:18 05/16/21 19:18 Labs: Laboratory Results - last 24 hr 05/16/21 05/16/21 19:18 19:18 WBC 4.7 RBC 4.36 Hgb 12.6 Hct 37.8 MCV 86.7 MCH 28.9 MCHC 33.3 RDW Std Deviation 41.7 RDW Coeff of Dona 13.2 Plt Count 264 MPV 10.5 Immature Gran % (Auto) 0.200 Neut % (Auto) 46.1 L Lymph % (Auto) 44.1 H [place] % (Auto) 7.0 Eos % (Auto) 1.7 Baso % (Auto) 0.9 Absolute Neuts (auto) 2.2 Absolute Lymphs (auto) 2.07 Nucleated RBC % 0 Sodium 137 Potassium 3.4 L Chloride 104 Carbon Dioxide 23.0 Anion Gap 10 BUN 10 Creatinine 0.64 Estim Creat Clear Calc 79.48 Est GFR (MDRD) Af Amer 124 Est GFR (MDRD) Non-Af 102 BUN/Creatinine Ratio 15.6 Glucose 83 Calcium 9.2 Troponin I High Sens 4.6 Rhythm Strip Rhythm Strip: Sinus Rhythm Rate: 67 Ectopy: None Radiology Impression Chest X-Ray 05/16/21 18:47 IMPRESSION: Normal x-ray examination of the chest. Electronically Signed: Franklin Bragg MD at 19:10 EDT Tel , Service support , Assessment & Plan Assessment/Plan (1) Chest pain of uncertain etiology: PLAN: 1. Chest pain * No clinical evidence of ACS at this time. * Chest pain has been ongoing since November, when she had a stent placed. She had normal cardiac catheterization back in January. * Cardiology has been contacted through the emergency room and plan is for left heart catheterization possibly on the . Patient be n.p.o. after midnight. In the meantime, cycle troponins. * Patient seems very anxious and I'm concerned that this could be the etiology of her chest pain but this would be a diagnosis of exclusion. * Last visit with cardiology was considering adding nitrates to her regimen. 2. CAD * In November, patient had an occluded proximal RCA and underwent a successful PCI and drug-eluting stent at that time. * Continue with aspirin and clopidogrel 3. VTE prophylaxis: Not indicated given observation status 4. Health maintenance: Patient is unvaccinated from COVID-19 and she has not contracted COVID-19 from which she is aware of. Patient has no interest in getting the COVID-19 vaccine because it killed a couple of her friends recently. I did express sympathy for her losses but I did tell her that the risk for her with her medical comorbidities of zaki COVID-[address] potential risks of the COVID-19 vaccination. Patient said that she would rather from Covid than get the vaccine. I did remind the patient that she is coming in with shortness of breath but with stable vital signs and that if she were to contract Covid that she because become much more short of breath requiring oxygen. Charges/Coding Visit Charges OBSV E&M: 28055 Initial observation care L2
--- NOTE | 2021-05-16 21:37 | EKG12_ITS ---
Test Reason : CP ADMIT Blood Pressure : / mmHG Vent. Rate : 056 BPM Atrial Rate : 056 BPM P-R Int : 142 ms QRS Dur : 092 ms QT Int : 420 ms P-R-T Axes : 059 067 055 degrees QTc Int : 405 ms Sinus bradycardia Otherwise normal ECG Confirmed by GLEN KING, JOE ([id number]), publishing editor FILI CASTILLO ([id number]) on 05/18/2021 12:35:27 PM Referred By: SOO Confirmed By:JOE CARROLL MD
[2021-05-16 21:38] VITALS: BMI 21.3
[2021-05-16 21:42] VITALS: BP 196/112; PULSE 68; RESP 18; TEMP 36.7; O2SAT 100
[2021-05-16 22:26] VITALS: BP 183/90; PULSE 67; RESP 18; TEMP 36.7; O2SAT 100
[2021-05-16 23:00] VITALS: PULSE 60
[2021-05-16 23:12] LABS: Troponin-I HS 5.6 pg/mL (3.0-53.7)
[2021-05-17] VITALS (15 sets, daily range): BP systolic 95–132; BP diastolic 59–78; PULSE 66–86; RESP 12–18; TEMP 36.3–36.9; O2SAT 95–100; BMI 21.3
--- NOTE | 2021-05-17 02:23 | CON.PCM.CA_ITS ---
Assessment & Plan Assessment/Plan (1) Unstable angina: PLAN: The patient has ongoing chest discomfort both at rest and with exertion. Based upon the patient's history, etc., there would be concerns that this would be unstable angina pectoris. At the present time the patient is being monitored. Her initial cardiac enzymes and ECG demonstrated no acute changes. She has already been recommended for repeat diagnostic cardiac catheterization in the near future. She will continue medical therapy in the interim. (2) Atherosclerotic heart disease of [place] coronary artery without angina pectoris: QUALIFIERS: [place] vs. transplanted heart: [place] heart Qualified Code(s): I25.10 - Atherosclerotic heart disease of [place] coronary artery without angina pectoris PLAN: The patient does have history of CAD as previously noted. She underwent diagnostic cardiac catheterization in November of this year which led to RCA PTCA/ALYSSIA. She had a repeat diagnostic cardiac catheterization in January of this year which led to continued medical therapy. Based upon her ongoing symptoms she has already been recommended for repeat diagnostic cardiac catheterization. (3) History of coronary artery stent placement: PLAN: She has undergone previous RCA PTCA/ALYSSIA secondary to her acute coronary syndrome/acute inferior STEMI in November of this year. She states she has continued her medical therapy with respect to her antiplatelet therapy. (4) Ischemic cardiomyopathy: PLAN: The patient does not appear to have any ongoing symptoms of acute CHF or pulmonary edema at this time. The patient's left ventricle cannot be assessed with an echocardiogram with respect to left ventricular wall motion and systolic function to help guide further evaluation/care. (5) Hypertension: QUALIFIERS: Hypertension type: essential hypertension Qualified Code(s): I10 - Essential (primary) hypertension PLAN: The patient's blood pressure can be followed and treated accordingly. Addt'l Comments The patient's case has been discussed with the patient and with the [facility] emergency department staff. This note was generated using a voice recognition system and there may be incorrect words, spelling or punctuation that were not noted when reviewing the office note prior to saving. HPI Consult Data Date of Consult: 05/17/21 HPI Narrative HPI Narrative: SJ MOHAN, is a 55 year old white female who presents for evaluation of ongoing chest discomfort superimposed upon a history of previous acute coronary syndrome/CAD/PCI already scheduled for upcoming repeat diagnostic cardiac catheterization. The patient underwent evaluation earlier this year for an acute ST segment elevation [id number] cardiac catheterization demonstrating underlying RCA disease which subsequently led to RCA PTCA/ALYSSIA. She continue with outpatient cardiovascular follow-up and based on ongoing concerns underwent a repeat cardiac catheterization in January of this year which demonstrated her coronary vessels and stented vessels to be patent and she did not require additional catheter-based revascularization. She states she can still continues with upper chest discomfort which radiates to her left side and left shoulder as well as to her neck leading to a choking sensation. She states she feels like she just cannot breathe like she would like to. The symptoms have been progressively getting worse and are present both at rest and with exertion. She has denied any classic orthopnea or PND or peripheral pitting edema. There has been no near syncope or syncope. She states she cannot sleep in bed comfortably, since her acute coronary syndrome event, because of this choking sensation. Thus she has been sleeping in a reclining chair. She denies any history of fever, chills, or night sweats. She denies any other illnesses especially viral type illnesses. She is not aware of having any history of thromboembolic disease. She has contacted the [facility] office and was tentatively scheduled for a repeat diagnostic cardiac catheterization to be performed on May 22. However based upon ongoing symptoms she presented to the emergency department on 05-16-2021. She was subsequently admitted by the [facility] staff for further evaluation and care including consultation to cardiology for her diagnostic cardiac catheterization procedure. As part of her evaluation she had troponin I levels performed. They have been negative. Her ECG demonstrated sinus bradycardia and demonstrated no acute dynamic changes. [facility] Medical History (Updated 05/17/21 @ 02:[address] 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) Shortness of breath Home Medications aspirin 81 mg tablet,delayed release 81 mg PO DAILY 03/20/21 [History Last Taken 05/16/21 07:00] clopidogrel 75 mg tablet 75 mg PO DAILY #90 tablet 03/20/21 [Rx Last Taken 05/16/21 03:00] albuterol sulfate 90 mcg/actuation aerosol inhaler 2 puff INHALATION Q6H PRN 05/03/21 [History Last Taken Unknown] lamotrigine 25 mg tablet 25 mg PO DAILY 05/03/21 [History Last Taken 05/16/21 08:00] Allergy/AdvReac Type Severity Reaction Status Date / Time morphine Allergy Hives Verified 05/10/21 19:34 amlodipine AdvReac Intermediate chest Verified 05/10/21 19:34 pain and cannot breathe carvedilol [From Coreg] AdvReac Intermediate throat Verified 05/10/21 19:34 closing up and chest pressure citalopram [From Celexa] AdvReac NAUSEATED Verified 05/10/21 19:34 AND IRRITABLE lisinopril AdvReac SOB, chest Verified 05/10/21 19:34 tightness,throat closing venlafaxine [From Effexor] AdvReac DIDN'T Verified 05/10/21 19:34 WORK Family History Father CAD (coronary artery disease) Myocardial infarction Surgical History H/O section History of coronary artery stent placement (12/18/20) History of left heart catheterization (01/25/21) Social History household members: none Smoking Status: Former smoker quit date: 01/23/21 pack-years: 30 how long ago did patient quit smokin days ago alcohol intake: never substance use type: does not use caffeine: Yes Type: coffee Number of servings: 2 ROS Constitutional Constitutional: Reports as per HPI Eyes Eyes: Reports as per HPI ENT HEENT: Reports as per HPI Cardiovascular Cardiovascular: Reports chest pain, chest pain at rest, chest pain with activity, dyspnea, dyspnea at rest, dyspnea on exertion and fatigue Respiratory/Chest Respiratory/Chest: Reports dyspnea and dyspnea on exertion Gastrointestinal Gastrointestinal: Reports as per HPI Genitourinary Genitourinary: Reports as per HPI Musculoskeletal Musculoskeletal: Reports as per HPI Physical Exam Const alert, oriented x3 and no apparent distress Constitutional Narrative: Tired appearing Orientation / Consciousness: awake HEENT normocephalic, head/scalp atraumatic and hearing grossly normal bilaterally Eyes PERRL, EOMs intact bilaterally, conjunctivae normal and no scleral icterus Neck full ROM, supple and no JVD Chest inspection of chest normal Resp normal respiratory effort and clear to auscultation bilaterally Cardio regular rate, regular rhythm, S1 normal heart sound and S2 normal heart sound GI normal to inspection, nondistended, normoactive bowel sounds Extremity full ROM and no pedal edema Skin General Skin Exam: ecchymosis Neuro oriented x3, CN's II-XII intact bilaterally and moves all extremities Psych mental status grossly normal Procedure Criteria Type of Procedure Procedure Type: Elective Elective Risks - COVID COVID Risk Discussion: The surgeon/proceduralist and patient have discussed in detail the risk of exposure to and/or potential harm posed by the COVID-19 virus with having a surgery/procedure at this time versus the risk of delaying the surgery/procedure. It is not possible to know either the risk of delaying the surgery or procedure or chance of getting an infection with perfect accuracy, but a joint decision was made between the patient and the surgeon/proceduralist to proceed at this time with the scheduled surgery/procedure as indicated on the consent form. Objective Data Vital Signs: Vital Signs Temp Pulse Resp BP Pulse Ox 98.1 F 60 18 183/90 H 100 05/16/21 22:26 05/16/21 23:00 05/16/21 22:26 05/16/21 22:26 05/16/21 22:26 Oxygen Delivery Method Room Air Weight: 116 lb 13.52 oz Body Mass Index (BMI) 21.3 Intake & Output: Intake and Output for Last 24 Hours 05/15/21 05/16/21 05/17/21 23:59 23:59 23:59 Intake Total 0 / 0 Balance 0 / 0 Lab / Micro Data Result Diagrams: 05/16/21 19:18 05/16/21 19:18 Labs: Laboratory Results - last 24 hr 05/16/21 05/16/21 05/16/21 19:18 19:18 22:32 WBC 4.7 RBC 4.36 Hgb 12.6 Hct 37.8 MCV 86.7 MCH 28.9 MCHC 33.3 RDW Std Deviation 41.7 RDW Coeff of Dona 13.2 Plt Count 264 MPV 10.5 Immature Gran % (Auto) 0.200 Neut % (Auto) 46.1 L Lymph % (Auto) 44.1 H [place] % (Auto) 7.0 Eos % (Auto) 1.7 Baso % (Auto) 0.9 Absolute Neuts (auto) 2.2 Absolute Lymphs (auto) 2.07 Nucleated RBC % 0 Sodium 137 Potassium 3.4 L Chloride 104 Carbon Dioxide 23.0 Anion Gap 10 BUN 10 Creatinine 0.64 Estim Creat Clear Calc 79.48 Est GFR (MDRD) Af Amer 124 Est GFR (MDRD) Non-Af 102 BUN/Creatinine Ratio 15.6 Glucose 83 Calcium 9.2 Troponin I High Sens 4.6 5.6 Micro: Microbiology 05/16/21 Unknown Mucosa - Nose SARS-CoV-2 Antigen (Rapid) - Final Rhythm Strip Rhythm Strip: Sinus Rhythm Rate: 67 Ectopy: None Cardiology Labs/Tests 05/16/21 19:18: WBC 4.7, RBC 4.36, Hgb 12.6, Hct 37.8, MCV 86.7, MCH 28.9, MCHC 33.3, Plt Count 264, MPV 10.5, Immature Gran % (Auto) 0.200, Neut % (Auto) 46.1 L, Lymph % (Auto) 44.1 H, [place] % (Auto) 7.0, Eos % (Auto) 1.7, Baso % (Auto) 0.9, Absolute Neuts (auto) 2.2, Nucleated RBC % 0 05/16/21 19:18: Sodium 137, Potassium 3.4 L, Chloride 104, Carbon Dioxide 23.0, Anion Gap 10, BUN 10, Creatinine 0.64, Est GFR (MDRD) Af Amer 124, Est GFR (MDRD) Non-Af 102, BUN/Creatinine Ratio 15.6, Glucose 83, Calcium 9.2 Rhythm: Sinus rhythm EKG: Sinus bradycardia ECHO: 12-19-2020 Mild global left ventricular hypokinesis Reported LVEF of 47% Cardiac Cath: CONCLUSIONS previously placed RCAstent patent. RECOMMENDATIONS Medical therapy DESCRIPTION OF PROCEDURE The patient arrived to the procedure lab. The risks and benefits of the procedure as well as a full description of our services here and current unavailability of surgical backup were fully explained to the patient and/or their significant other prior to the catheterization. The Timeout was completed, verifying the correct patient and procedure. The patient's procedural site was prepped and draped in the usual fashion. Local anesthetic was given subcutaneously to right radial region with Lidocaine 2%. Using a modified Seldin lars technique, arterial access was obtained via the right radial artery, a 6Fr sheath was inserted. Left Coronary Artery selective angiography was performed in multiple views using a 5 Fr. 4.0 [place] catheter. Right Coronary Artery selective angiography was then performed in multiple views using a 5 Fr. 4.0 [place] catheter. Left Ventriculography was performed in SANTOS projection using a 5 Fr. Pigtail catheter. LV to AO pullback pressures were then recorded.The arterial sheath was pulled and a TR Band was applied for hemostasis w/ 13ml air CORONARY ANGIOGRAPHY DOMINANCE: Right Dominant LEFT HEART ASSESSMENT Left Ventricular Ejection Fraction: by LV Gram 60 % Normal LV wall motion Normal Left Ventricular systolic function LEFT MAIN: Angiographically normal LEFT ANTERIOR DESCENDING ARTERY: Mild luminal irregularities CIRCUMFLEX ARTERY: Mild luminal irregularities RIGHT CORONARY ARTERY: PROX RCA: Previously placed stent is patent PCI: 12-18-2020 RCA PTCA/ALYSSIA Radiography Diagnostic Testing: Radiology Impression Chest X-Ray 05/16/21 18:47 IMPRESSION: Normal x-ray examination of the chest. Electronically Signed: Franklin Bragg MD at 19:10 EDT Tel , Service support ,
[2021-05-17] MEDS: Ondansetron 4 MG/2 ML Vial IV (04:35)
[2021-05-17] MEDS: 0.9% Saline Lock 10 ML Syringe IV ×2 (04:36→11:05)
[2021-05-17 05:21] LABS: Troponin-I HS 6.7 pg/mL (3.0-53.7)
[2021-05-17 05:22] LABS: Anion Gap 8 (5-15); BUN 9 mg/dL (7-18); BUN/Creat Ratio 13.8 RATIO (10-20); Calcium,Total 9.4 mg/dL (8.5-10.1); Chloride 106 mmol/L (98-107); Creatinine, Serum 0.65 mg/dL (0.55-1.02); EST Glomerular Filtration Rate 101 mL/min (>60); Est Glom Filt Rate - Afr Amer 122 mL/min (>60); Estimated Creatinine Clearance 78.25 ml/min; Glucose 87 mg/dL (74-106); Magnesium 2.1 mg/dL (1.6-2.6); Potassium 3.5 mmol/L (3.5-5.1); Sodium Level 138 mmol/L (136-145)
--- NOTE | 2021-05-17 05:55 | EKG12_ITS ---
Test Reason : AM Blood Pressure : / mmHG Vent. Rate : 070 BPM Atrial Rate : 070 BPM P-R Int : 156 ms QRS Dur : 096 ms QT Int : 424 ms P-R-T Axes : 074 068 053 degrees QTc Int : 457 ms Normal sinus rhythm Normal ECG Confirmed by GLEN KING, JOE ([id number]), news editor FILI CASTILLO ([id number]) on 05/18/2021 12:35:07 PM Referred By: SOO Confirmed By:JOE CARROLL MD
[2021-05-17] MEDS: Clopidogrel Bisulfate 75 MG Tablet PO (06:21)
[2021-05-17] MEDS: Aspirin E.C. 81 MG Tablet PO (06:21)
--- NOTE | 2021-05-17 09:15 | CASEMGMT ---
According to the [facility] website, the following are in-network facilities: [facility], [facility], [facility], [facility], [facility], [facility], [place], [facility], and . Darcy PRIETO CM
[2021-05-17] MEDS: Acetaminophen 325 MG Tablet 650 MG PO (11:11)
--- NOTE | 2021-05-17 12:28 | PCM.PN.CARD ---
Subjective Subjective Patient seen and evaluated. Objective Data Vital Signs: Vital Signs Temp Pulse Resp BP Pulse Ox 98.5 F 86 16 101/59 L 96 05/17/21 10:28 05/17/21 10:28 05/17/21 10:28 05/17/21 10:28 05/17/21 10:28 Oxygen Delivery Method Room Air Weight: 116 lb 13.52 oz Body Mass Index (BMI) 21.3 Intake & Output: Intake and Output for Last 24 Hours 05/15/21 05/16/21 05/17/21 23:59 23:59 23:59 Intake Total 60 / 60 Balance 60 / 60 Lab / Micro Data Result Diagrams: 05/16/21 19:18 05/17/21 04:30 Labs: Laboratory Results - last 24 hr 05/16/21 05/16/21 05/16/21 19:18 19:18 22:32 WBC 4.7 RBC 4.36 Hgb 12.6 Hct 37.8 MCV 86.7 MCH 28.9 MCHC 33.3 RDW Std Deviation 41.7 RDW Coeff of Dona 13.2 Plt Count 264 MPV 10.5 Immature Gran % (Auto) 0.200 Neut % (Auto) 46.1 L Lymph % (Auto) 44.1 H [place] % (Auto) 7.0 Eos % (Auto) 1.7 Baso % (Auto) 0.9 Absolute Neuts (auto) 2.2 Absolute Lymphs (auto) 2.07 Nucleated RBC % 0 Sodium 137 Potassium 3.4 L Chloride 104 Carbon Dioxide 23.0 Anion Gap 10 BUN 10 Creatinine 0.64 Estim Creat Clear Calc 79.48 Est GFR (MDRD) Af Amer 124 Est GFR (MDRD) Non-Af 102 BUN/Creatinine Ratio 15.6 Glucose 83 Calcium 9.2 Magnesium Troponin I High Sens 4.6 5.6 05/17/21 05/17/21 04:30 04:30 WBC RBC Hgb Hct MCV MCH MCHC RDW Std Deviation RDW Coeff of Dona Plt Count MPV Immature Gran % (Auto) Neut % (Auto) Lymph % (Auto) [place] % (Auto) Eos % (Auto) Baso % (Auto) Absolute Neuts (auto) Absolute Lymphs (auto) Nucleated RBC % Sodium 138 Potassium 3.5 Chloride 106 Carbon Dioxide 24.0 Anion Gap 8 BUN 9 Creatinine 0.65 Estim Creat Clear Calc 78.25 Est GFR (MDRD) Af Amer 122 Est GFR (MDRD) Non-Af 101 BUN/Creatinine Ratio 13.8 Glucose 87 Calcium 9.4 Magnesium 2.1 Troponin I High Sens 6.7 Micro: Microbiology 05/16/21 Unknown Mucosa - Nose SARS-CoV-2 Antigen (Rapid) - Final Rhythm Strip Rhythm Strip: Sinus Rhythm Rate: 67 Ectopy: None Cardiology Labs/Tests 05/16/21 19:18: WBC 4.7, RBC 4.36, Hgb 12.6, Hct 37.8, MCV 86.7, MCH 28.9, MCHC 33.3, Plt Count 264, MPV 10.5, Immature Gran % (Auto) 0.200, Neut % (Auto) 46.1 L, Lymph % (Auto) 44.1 H, [place] % (Auto) 7.0, Eos % (Auto) 1.7, Baso % (Auto) 0.9, Absolute Neuts (auto) 2.2, Nucleated RBC % 0 05/16/21 19:18: Sodium 137, Potassium 3.4 L, Chloride 104, Carbon Dioxide 23.0, Anion Gap 10, BUN 10, Creatinine 0.64, Est GFR (MDRD) Af Amer 124, Est GFR (MDRD) Non-Af 102, BUN/Creatinine Ratio 15.6, Glucose 83, Calcium 9.2 05/17/21 04:30: Sodium 138, Potassium 3.5, Chloride 106, Carbon Dioxide 24.0, Anion Gap 8, BUN 9, Creatinine 0.65, Est GFR (MDRD) Af Amer 122, Est GFR (MDRD) Non-Af 101, BUN/Creatinine Ratio 13.8, Glucose 87, Calcium 9.4, Magnesium 2.1 Rhythm: EKG: Normal sinus rhythm ECHO: Stress Test: Cardiac Cath: PCI: CT Surgery: Holter monitor: EPS: PPM: CXR: Chest CT Scan: Radiography Diagnostic Testing: Radiology Impression Chest X-Ray 05/16/21 18:47 IMPRESSION: Normal x-ray examination of the chest. Electronically Signed: Franklin Bragg MD at 19:10 EDT Tel , Service support , Physical Exam Const oriented x3 and healthy appearing Orientation / Consciousness: awake HEENT normocephalic Eyes PERRL and conjunctivae normal Neck supple, no JVD and no carotid bruits Chest inspection of chest normal Resp normal respiratory effort and clear to auscultation bilaterally Cardio Palpation: normal PMI Rate: regular rate Rhythm: regular rhythm Heart Sounds: S1 normal and S2 normal Peripheral Pulses: pulses 2+ throughout GI normal to inspection, nondistended, normoactive bowel sounds Extremity normal to inspection and no clubbing, cyanosis or edema Psych mental status grossly normal Assessment & Plan Assessment/Plan (1) Chest pain: PLAN: Patient presented with chest discomfort. She underwent a cardiac catheterization today which demonstrated patent stents in the right coronary artery unchanged from a few months ago as well as no significant obstructive disease noted in the left anterior descending artery system. Based on the above angiographic findings it is unlikely that the above is from obstructive coronary disease I would recommend medical therapy and to evaluate her pulmonary etiology. Would empirically add ranolazine 500 mg twice a day to her regimen.
[2021-05-17] MEDS: 0.9% Normal Saline 1,000 ML 75 ML IV (13:20)
[2021-05-17] MEDS: lamoTRIgine 25 MG Tablet PO (13:35)
--- NOTE | 2021-05-17 14:09 | DS.PCM_ITS ---
Providers Date of Admission: 05/16/21 Primary Care Physician: Dr. Ellis Crandall MD Consultations 05/16/21 21:37 Consult: Cardiology Routine Consulting Provider: Ismael Jackson Reason for Consult: chest pain EMERGENT Consult: No MD Notified: Yes Date Notified: 05/16/21 Time Notified: 21:13 Method of Notification: Verbal Reason For Visit: CHEST PAIN Diagnosis Discharge Diagnosis (1) Chest pain: Status: Acute Code(s): R07.9 - Chest pain, unspecified Medications at Discharge Home Medications aspirin 81 mg tablet,delayed release 81 mg PO DAILY 03/20/21 clopidogrel 75 mg tablet 75 mg PO DAILY #90 tablet 03/20/21 albuterol sulfate 90 mcg/actuation aerosol inhaler 2 puff INHALATION Q6H PRN 05/03/21 lamotrigine 25 mg tablet 25 mg PO DAILY 05/03/21 Hospital Course Summary of Care Provided Minutes Spent on Discharge: 18 Hospital Course: Ms. Pedroza is a 55-year-old female with a pertinent past history of coronary artery disease who presented to the emergency department at [facility] on 05/16/2021 complaining of chest pain. She had cardiac stents placed in November and had a repeat catheterization in January 2021 that shows patent stents. Upon presentation she was having increased shortness of breath and chest pain intermittently but it had progressed to constant symptoms prior to admission. Her vital signs were stable and her oxygen saturation was 100% in the emergency department. The emergency department discussed the case with Dr. Jackson who was her primary linux systems analyst and he reported that cardiology would evaluate the patient on the and determine whether or not she needed a cardiac catheterization. She was taken to [facility] on 05/17/2021 where patent cardiac stents were found and no other obstructive disease was noted. She is to be maintained on her current medical regimen and was discharged in stable condition on 05/17/2021. She is to follow-up with her primary care physician within 1 week and follow-up with cardiology in 4 weeks. Physical Exam Const alert, oriented x3 and no apparent distress Constitutional Narrative: thin white female who appears older than state age General Appearance: cooperative and comfortable HEENT normocephalic and head/scalp atraumatic Eyes PERRL and EOMs intact bilaterally Neck no lymphadenopathy, supple, no JVD and no carotid bruits Resp normal respiratory effort, no retractions, no use of accessory muscles and clear to auscultation bilaterally Auscultation: Negative for crackles, rales, rhonchi or wheezes Cardio regular rate, regular rhythm, S1 normal heart sound, S2 normal heart sound, no murmurs, no rub, no gallops, no clicks and no JVD GI normal to inspection, nondistended, normoactive bowel sounds, soft to palpation, non-tender and non-distended Extremity normal to inspection and no clubbing, cyanosis or edema Skin no rashes or lesions noted, no wounds, skin turgor normal and no jaundice Neuro oriented x3, CN's II-XII intact bilaterally, moves all extremities and no focal motor deficits Sensorium / Orientation: awake, alert, oriented to person, oriented to place and oriented to time Psych Mood & Affect: anxious Weight / BMI Weight Weight: 53 kg Body Mass Index (BMI) 21.3 ABG / Lab / Microbiology Data Result Diagrams: 05/16/21 19:18 05/17/21 04:30 Laboratory: Laboratory Results - last 24 hr 05/16/21 05/16/21 05/16/21 19:18 19:18 22:32 WBC 4.7 RBC 4.36 Hgb 12.6 Hct 37.8 MCV 86.7 MCH 28.9 MCHC 33.3 RDW Std Deviation 41.7 RDW Coeff of Dona 13.2 Plt Count 264 MPV 10.5 Immature Gran % (Auto) 0.200 Neut % (Auto) 46.1 L Lymph % (Auto) 44.1 H [place] % (Auto) 7.0 Eos % (Auto) 1.7 Baso % (Auto) 0.9 Absolute Neuts (auto) 2.2 Absolute Lymphs (auto) 2.07 Nucleated RBC % 0 Sodium 137 Potassium 3.4 L Chloride 104 Carbon Dioxide 23.0 Anion Gap 10 BUN 10 Creatinine 0.64 Estim Creat Clear Calc 79.48 Est GFR (MDRD) Af Amer 124 Est GFR (MDRD) Non-Af 102 BUN/Creatinine Ratio 15.6 Glucose 83 Calcium 9.2 Magnesium Troponin I High Sens 4.6 5.6 05/17/21 05/17/21 04:30 04:30 WBC RBC Hgb Hct MCV MCH MCHC RDW Std Deviation RDW Coeff of Dona Plt Count MPV Immature Gran % (Auto) Neut % (Auto) Lymph % (Auto) [place] % (Auto) Eos % (Auto) Baso % (Auto) Absolute Neuts (auto) Absolute Lymphs (auto) Nucleated RBC % Sodium 138 Potassium 3.5 Chloride 106 Carbon Dioxide 24.0 Anion Gap 8 BUN 9 Creatinine 0.65 Estim Creat Clear Calc 78.25 Est GFR (MDRD) Af Amer 122 Est GFR (MDRD) Non-Af 101 BUN/Creatinine Ratio 13.8 Glucose 87 Calcium 9.4 Magnesium 2.1 Troponin I High Sens 6.7 Microbiology: Microbiology 05/16/21 Unknown SARS-CoV-2 Antigen (Rapid) - Final Mucosa - Nose Microbiology 05/16/21 Unknown Mucosa - Nose SARS-CoV-2 Antigen (Rapid) - Final Radiography Diagnostic Testing: Radiology Impression Chest X-Ray 05/16/21 18:47 IMPRESSION: Normal x-ray examination of the chest. Electronically Signed: Franklin Bragg MD at 19:10 EDT Tel , Service support , Meaningful Use Info Meaningful Use Diagnoses (Choose all that apply): None applicable Discharge Plan Admission Admit Date/Time: 05/16/21 21:15 Primary Reason for Your Visit: Chest pain Attending Provider: Danii Treadwell Primary Care Provider: Ellis Crandall Consulting Providers: Ismael Jackson Instructions Patient Instructions: ED Chest Pain, Noncardiac Discharge Orders/Prescriptions Prescriptions: Continued aspirin [Adult Low Dose Aspirin] 81 mg tablet,delayed release (DR/EC) 81 mg PO DAILY RF: 0 clopidogrel [Plavix] 75 mg tablet 75 mg PO DAILY Qty: 90 RF: 3 lamotrigine [Lamictal] 25 mg tablet 25 mg PO DAILY RF: 0 albuterol sulfate 90 mcg/actuation HFA aerosol inhaler 2 puff inhalation Q6H PRN (Reason: Shortness Of Breath Or Wheezing) RF: 0 Referrals / Follow Up: Ellis Crandall MD [Primary Care Provider] - In 1 Week Ismael Jackson MD [STAFF PHYSICIAN] - Within 1 Month Disposition Disposition (needs filled in before D/C Order can be placed): Home, Self Care Charges/Coding Visit Charges Inpatient E&M: 11314 Disch Hosp
--- NOTE | 2021-05-17 15:07 | EX.NTREPO ---
Medical Nutrition Therapy - History Nutrition Services has been consulted to:: Manage nutrient details of diet order Current diet/nutrition support order:: NPO - Anthropometric Measurements Height:: 5 ft 2 in Weight:: 53 kg Body Mass Index (BMI):: 21.3 - Relevant Labs Relevant Labs:: Neut % (Auto) 46.1 % (47-70) L 05/16/21 19:18 Lymph % (Auto) 44.1 % (19-41) H 05/16/21 19:18 Potassium 3.4 mmol/L (3.5-5.1) L 05/16/21 19:18 - Assessment Food and Nutrient Intake: No PO intake since admission d/t heart cath. Pt states appetite is chronically fair, however diet recall suggests poor PO intake. Pt denies wt changes, UBW ~122# and CBW 116.8#-5.2#/4.2% wt loss unknown timeframe. Pt states she stopped eating all greasy foods and meat after heart stents. Pt states she doesn't eat meat because she does not like it. Pt states most food exacerbates her GERD and she also does not eat eggs, dairy, or beans. Pt states she eats mostly salad. Pt states she is scheduled for an outpatient EGD and colonoscopy to further evaluate her GI symptoms. - Nutrition Diagnosis: Intake Problem Inadequate Protein Intake Intake Problem - Etiology: r/t inadequate consumption of protein-containing foods Intake Problem - Signs/Symptoms: as evidenced by pt reports of dislike of animal proteins, reported GI distress after consuming dairy, eggs; estimated protein intake meeting <50% of protein needs Status: Active Problem - Nutrition Diagnosis: Clinical Problem Chronic Disease or Condition Related Malnutrition Clinical Problem - Etiology: moderate, chronic malnutrition r/t inadequate energy intake d/t GI issues, dislike of animal proteins Clinical Problem - Signs/Symptoms: as evidenced by estimated PO intake meeting <75% of estimated nutritional needs >3 months, obvious moderate muscle wasting and fat loss- wasting of temporal, clavicle, and acromion regions; loss of fat overlying ribs, triceps, and orbital region. Status: Active Problem - Protein Calorie Malnutrition Evidence of Malnutrition Exists: Yes Moderate Protein Calorie Malnutrition: Chronic - Nutrition Intervention Nutrition Prescription: [id number] calories/day (1.3xRMR). 45-55 g protein/day (1.0 g/kg). 1590mL fluid/day (30mL/kg) - Food / Nutrient Delivery Interventions Summary of nutrition intervention:: Nutrition education provided Nutrition support ordered as / adjusted to:: recommend cardiac diet Nutrition education provided?: Yes - see full RDN assessment for details - MNT Monitoring Active Nutrition Patient: Yes Nutrition Status: Requires Follow Up 3-5 Days
--- NOTE | 2021-05-17 15:13 | PHA.DC.MR ---
Pharmacy Service has performed discharge medication reconciliation for this patient. The patient's discharge medication list was reviewed for discrepancies and discrepancies were resolved. Home Medications aspirin 81 mg tablet,delayed release 81 mg PO DAILY 03/20/21 clopidogrel 75 mg tablet 75 mg PO DAILY #90 tablet 03/20/21 albuterol sulfate 90 mcg/actuation aerosol inhaler 2 puff INHALATION Q6H PRN 05/03/21 lamotrigine 25 mg tablet 25 mg PO DAILY 05/03/21
[2021-05-17] MEDS: LORazepam 0.5 MG Tablet PO (15:19)
--- NOTE | 2021-05-18 12:31 | CL.D_ITS ---
Patient Name: SJ MOHAN Study Date: 05/17/2021 Performing: Tc Lopez MD Ht: 62 inches 157 cm : 1965 Wt: 117 lbs 53 kg Age: 55 Gender: female BSA: 1.52 PROCEDURE(S) PERFORMED [id number]/COR/LV CLINICAL PROFILE AND INDICATIONS Indications: Worsening Angina Heart Failure: None Stress/Imaging Stress/Image Study Performed: No CAD Presentations: Unstable angina. CONCLUSIONS Nonobstructive coronary artery disease noted. Previously placed stent in the right coronary artery i s patent. Preserved ejection fraction is noted. RECOMMENDATIONS Medical therapy DESCRIPTION OF PROCEDURE The patient arrived to the procedure lab. The risks and benefits of the procedure as well as a full d escription of our services here and current unavailability of surgical backup were fully explained to the patient and/or their significant other prior to the catheterization. The Timeout was completed, verifying the correct patient and procedure. The patient's procedural site was prepped and draped in the usual fashion. Local anesthetic was given subcutaneously to right radial region with Lidocaine 2% . Using a modified Seldinger technique, arterial access was obtained via the right radial artery, a 6 Fr sheath was inserted. Left Coronary Artery selective angiography was performed in multiple views u sing a 5 Fr. 4.0 [place] catheter. Right Coronary Artery selective angiography was then performed in mu ltiple views using a 5 Fr. 4.0 [place] catheter. Left Ventriculography was performed in SANTOS projection using a 5 Fr. Pigtail catheter. LV to AO pullback pressures were then recorded.The arterial sheath was pulled and a TR Band was applied for hemostasis. Sheath Flushed prior to removal. 10cc air inserted. CORONARY ANGIOGRAPHY DOMINANCE: Right Dominant LEFT HEART ASSESSMENT Left Ventricular Ejection Fraction: by LV Gram 60 % Normal LV wall motion Normal Left Ventricular systolic function LEFT MAIN: Angiographically normal LEFT ANTERIOR DESCENDING ARTERY: No significant disease noted DIAGONAL 1: Ostial - 50 % Stenosis CIRCUMFLEX ARTERY: No significant disease noted RIGHT CORONARY ARTERY: Previously placed stent is patent COMPLICATIONS No Complications PROCEDURE MEDICATIONS Versed 1 mg IV Fentanyl 50 mcg IV Versed 1 mg IV Oxygen: 2 L/min via nasal cannula Heparin given IA 05/17/2021 12:11:11 Verapamil 2.5mg, Ntg 100mcgs, 3000 units of Heparin given IA 05/17/2021 12:11:11 SUMMARY OF HEMODYNAMIC DATA Time AIR REST ECG 11:33:00 Art 142/65 (92) 12:07:26 AO 124/78 (99) SA 12:15:29 LV 126/0, 26 12:21:08 LV 117/0, 2 12:22:06 LV 120/0, 2 12:22:13 LVp 118/0, 1 12:22:17 AOp 126/64 (90) 12:22:22 Signed By Tc Lopez MD On 05/17/2021 13:08:03 Tc Lopez MD
== END 2021-05-17 14:11 | disposition home or self-care (01) ==
LOC: ED 20:35 → PCU 21:24
PROVIDERS: Emergency Provider Emergency Medicine; PCP Family Medicine; Visit Provider Internal Medicine
DX: I25.110 Atherosclerotic heart disease of native coronary artery with unstable angina pectoris (principal); I25.2 Old myocardial infarction; I25.5 Ischemic cardiomyopathy; K21.9 Gastro-esophageal reflux disease without esophagitis; I10 Essential (primary) hypertension; J44.9 Chronic obstructive pulmonary disease, unspecified; F60.3 Borderline personality disorder; F31.9 Bipolar disorder, unspecified; I25.10 Atherosclerotic heart disease of native coronary artery without angina pectoris; Z79.899 Other long term (current) drug therapy; Z87.891 Personal history of nicotine dependence; Z79.82 Long term (current) use of aspirin; Z79.02 Long term (current) use of antithrombotics/antiplatelets; Z95.5 Presence of coronary angioplasty implant and graft
CPT/HCPCS: 36415; 71045; 80048; 83735; 84484; 85025; 87426; 93005; 93458; 96361; 96374; 97802; 99152; 99153; 99218; 99285; 99406; J7030; A4216; C1769; C1894; G0378; J2405; Q9967

== ENCOUNTER 2021-05-28 19:12 | Emergency (ER) | payer MEDICAID, SELFPAY ==
[2021-05-17 15:11] VITALS: BMI 21.3
[2021-05-28 19:13] VITALS: BP 164/90; PULSE 74; RESP 18; TEMP 36.4; O2SAT 100; BMI 23.0
[2021-05-28 20:13] LABS: Bacteria 0 SEEN /hpf (None Seen); Mucous, Urine 0 SEEN /hpf (<or=2+); Red Blood Cells-Urine 0 SEEN /hpf (0-5); White Blood Cells 0 SEEN /hpf (0-5)
[2021-05-28 20:20] LABS: Absolute Neutrophil Count 2.1 X10^3/uL (2.0-7.7); Basophil# 0.04 X10^3/uL; Basophil% 0.8 % (0-1); Color, Urine Yellow (Yellow); Eosinophil# 0.09 X10^3/uL; Eosinophils% 1.8 % (0-5); Glucose, Dipstick Normal (Normal); Hematocrit 40.3 % (37-47); Hemoglobin 13.3 g/dL (12.0-15.0); Ketone-Dipstick Negative (Negative); Leukocyte Esterase-Dipstick Negative /ul (Negative); Lymphocyte % 48.1 % (19-41); Mean Corpuscular Hgb 28.7 pg (27.0-32.0); Monocyte# 0.35 X10^3/uL; NRBC Flagged by Analyzer 0 % (0-5); Neutrophil # 2.11 X10^3/uL (2.7-7.7); Neutrophil % 42.3 % (47-70); Nitrite-Dipstick Negative (Negative); Occult Blood-Urine Negative /ul (Negative); Platelet Count 267 K/mm3 (150-450); Protein-Dipstick Negative (Negative); RBC Distribution Width CV 13.2 % (11.6-14.6); RBC Distribution Width SD 42.3 fl (35.1-43.9); Red Blood Count 4.63 M/mm3 (4.2-5.4); Specific Gravity, Urine 1.005 (1.002-1.030); Urine Bilirubin Dipstick Negative (Negative); Urine Clarity Sl. Cloudy (Clear); Urine Urobilinogen Normal (Normal)
[2021-05-28 20:34] LABS: Anion Gap 8 (5-15); BUN 8 mg/dL (7-18); BUN/Creat Ratio 12.3 RATIO (10-20); Calcium,Total 9.3 mg/dL (8.5-10.1); Chloride 102 mmol/L (98-107); Creatinine, Serum 0.65 mg/dL (0.55-1.02); EST Glomerular Filtration Rate 100 mL/min (>60); Est Glom Filt Rate - Afr Amer 121 mL/min (>60); Estimated Creatinine Clearance 74.66 ml/min; Glucose 82 mg/dL (74-106); Potassium 3.7 mmol/L (3.5-5.1); Sodium Level 135 mmol/L (136-145)
[2021-05-28 20:35] LABS: Squamous Epithelial Cells - UA 0-5 SEEN /hpf (5-10)
--- NOTE | 2021-05-28 20:59 | CT_ITS ---
EXAMINATION : Head CT w/out contrast HISTORY : headache COMPARISON : None. TECHNIQUE : Multiple contiguous axial images were obtained from the skull base to the vertex without intravenous contrast. A radiation dose optimization technique was used for this scan. FINDINGS : The ventricles and sulci are normal in size. There is no evidence for acute intracranial hemorrhage, mass effect, or midline shift. There is no extra-axial fluid collection. There is normal díaz-white differentiation, without CT evidence of acute ischemia or infarct. The skull base and calvarium are unremarkable. The orbits are unremarkable. The paranasal sinuses are clear. The mastoid air cells are well-aerated. The soft tissues are unremarkable. CT/Brain/Head without Contrast IMPRESSION: No acute intracranial abnormality. Electronically Signed: Nj Jensen MD at 22:16 EDT Tel , Service support ,
--- NOTE | 2021-05-28 23:12 | EDS_ITS ---
HPI History of Present Illness Chief Complaint: General Illness Detail of Chief Complaint: Headache Informant: patient Onset/Context/Timing Onset: Days Context: Gradual Onset Timing: Continuous Current Severity: Mild Maximum Severity: Mild Narrative Narrative: 35-year-old female known cardiac stent secondary to VT and CAD. Also hypertension. On Plavix and aspirin. States she is a headache for last 4 days has been constant. Denies nausea or vomiting. Denies fever. Denies sinus congestion. Denies trauma. 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) Shortness of breath Home Medications aspirin 81 mg tablet,delayed release 81 mg PO DAILY 03/20/21 [History Last Taken 05/16/21 07:00] clopidogrel 75 mg tablet 75 mg PO DAILY #90 tablet 03/20/21 [Rx Last Taken 05/16/21 03:00] albuterol sulfate 90 mcg/actuation aerosol inhaler 2 puff INHALATION Q6H PRN 05/03/21 [History Last Taken Unknown] lamotrigine 25 mg tablet 25 mg PO DAILY 05/03/21 [History Last Taken 05/16/21 08:00] prednisone 20 mg tablet 60 mg PO QDAY #15 tab 05/19/21 [Rx Last Taken Unknown] Allergy/AdvReac Type Severity Reaction Status Date / Time morphine Allergy Hives Verified 05/28/21 19:15 amlodipine AdvReac Intermediate chest Verified 05/28/21 19:15 pain and cannot breathe carvedilol [From Coreg] AdvReac Intermediate throat Verified 05/28/21 19:15 closing up and chest pressure citalopram [From Celexa] AdvReac NAUSEATED Verified 05/28/21 19:15 AND IRRITABLE lisinopril AdvReac SOB, chest Verified 05/28/21 19:15 tightness,throat closing venlafaxine [From Effexor] AdvReac DIDN'T Verified 05/28/21 19:15 WORK Family History Father CAD (coronary artery disease) Myocardial infarction Surgical History H/O section History of coronary artery stent placement (12/18/20) History of left heart catheterization (05/17/21) Social History household members: none Smoking Status: Former smoker quit date: 01/23/21 pack-years: 30 how long ago did patient quit smokin days ago alcohol intake: never substance use type: does not use caffeine: Yes Type: coffee Number of servings: 2 ROS ROS ED ROS Narrative Has had intermittent abdominal and chest pain which has been worked up at length with no diagnosis. Review of Systems ROS Unobtainable: Denies due to encephalopathy Constitutional Constitutional ED: Denies chills or fever(s) Eyes Eyes: Denies change in vision ENT ENT ED: Denies ear pain or sore throat Cardiovascular Cardiovascular: Reports chest pain Respiratory/Chest Respiratory/Chest: Denies cough or dyspnea Gastrointestinal Gastrointestinal: Reports abdominal pain; Denies diarrhea, nausea or vomiting Genitourinary Genitourinary ED: Denies dysuria Musculoskeletal Musculoskeletal: Denies myalgias Integumentary Denies rash Neurologic Neurologic: Reports headache(s) Psychiatric Psychiatric: Denies depression Endocrine Endocrinology: Denies polyuria Allergic/Immunologic Allergic/Immunologic ED: Denies urticaria EXAM Physical Exam Narrative Exam Narrative: Middle-aged female no acute distress vital signs stable afebrile. Exam unremarkable. Neurologic exam normal. NIH is 0. Const Vital Signs: 05/28/21 19:13 05/28/21 20:22 Temperature 97.6 F L Temperature Source Temporal Pulse Rate 74 Respiratory Rate 18 Respiratory Effort Normal Non-Labored Respiratory Pattern Normal Blood Pressure 164/90 H Blood Pressure Mean 114 Pulse Ox 100 Oxygen Delivery Method Room Air Positive well nourished and well developed General Appearance ED: well developed HEENT Reports moist mucous membranes Negative for trauma or tenderness Eyes PERRL and EOMs intact bilaterally Neck no lymphadenopathy, supple and no JVD General: Negative for tenderness Chest Wall inspection of chest normal and palpation of chest normal Resp normal respiratory effort and clear to auscultation bilaterally Cardio regular rate, regular rhythm, S1 normal heart sound, S2 normal heart sound and no murmurs GI normal to inspection, nondistended, normoactive bowel sounds, non-tender, non- distended and no masses Auscultation: normoactive bowel sounds Palpation: soft; Negative for tender or guarding Back/Spine no CVA tenderness Extremity normal to inspection General Extremety ED: Negative for edema or tenderness General Extremity: Negative for edema Neuro oriented x3 and CN's II-XII intact bilaterally Sensorium / Orientation: alert; Negative for lethargic or stuporous Sensory Exam: No sensory level loss detected Motor Exam: strength 5/5 throughout; Negative for general weakness Psych mental status grossly normal Skin no rashes or lesions noted and no wounds MDM MDM MDM Narrative Medical decision making narrative: 55-year-old with a headache typically does not have headaches. She is on Plavix and aspirin obtain a CAT scan. She has had no trauma. Neurologic exam is unremarkable. Repeat exam patient doing well at 1150 will be discharged home. Impression: Acute cephalgia of uncertain etiology History of CAD on Plavix History of cardiac stent Lab Data Attestation: I reviewed the patient's lab results. Lab results narrative: CBC White count of 5. Hemoglobin 13. Chemistries unremarkable gap of 8 creatinine 0.6. UA was negative. That was obtained by nursing staff. CT of the brain no acute abnormality. Labs: Laboratory Results - last 24 hr 05/28/21 05/28/21 05/28/21 20:09 20:09 20:09 WBC 5.0 RBC 4.63 Hgb 13.3 Hct 40.3 MCV 87.0 MCH 28.7 MCHC 33.0 RDW Std Deviation 42.3 RDW Coeff of Dona 13.2 Plt Count 267 MPV 10.0 Immature Gran % (Auto) 0.000 Neut % (Auto) 42.3 L Lymph % (Auto) 48.1 H [place] % (Auto) 7.0 Eos % (Auto) 1.8 Baso % (Auto) 0.8 Absolute Neuts (auto) 2.1 Absolute Lymphs (auto) 2.40 Nucleated RBC % 0 Sodium 135 L Potassium 3.7 Chloride 102 Carbon Dioxide 25.0 Anion Gap 8 BUN 8 Creatinine 0.65 Estim Creat Clear Calc 74.66 Est GFR (MDRD) Af Amer 121 Est GFR (MDRD) Non-Af 100 BUN/Creatinine Ratio 12.3 Glucose 82 Calcium 9.3 Urine Color Yellow Urine Clarity Sl. Cloudy Urine pH 7.0 Ur Specific [place] 1.005 Urine Protein Negative Urine Glucose (UA) Normal Urine Ketones Negative Urine Occult Blood Negative Urine Nitrite Negative Urine Bilirubin Negative Urine Urobilinogen Normal Ur Leukocyte Esterase Negative Urine RBC 0 SEEN Urine WBC 0 SEEN Ur Squamous Epith Cells 0-5 SEEN Urine Bacteria 0 SEEN Urine Mucus 0 SEEN Radiography Diagnostic Testing: Radiology Impression Brain CT 05/28/21 20:59 IMPRESSION: No acute intracranial abnormality. Electronically Signed: Nj Jensen MD at 22:16 EDT Tel , Service support , Discharge Plan Triage Chief Complaint: General Illness ED Provider: Yonas Guzman Dx/Rx/DC Orders Instructions: ED Headache, Tension Prescriptions: No Action aspirin [Adult Low Dose Aspirin] 81 mg tablet,delayed release (DR/EC) 81 mg PO DAILY RF: 0 clopidogrel [Plavix] 75 mg tablet 75 mg PO DAILY Qty: 90 RF: 3 lamotrigine [Lamictal] 25 mg tablet 25 mg PO DAILY RF: 0 albuterol sulfate 90 mcg/actuation HFA aerosol inhaler 2 puff inhalation Q6H PRN (Reason: Shortness Of Breath Or Wheezing) RF: 0 prednisone 20 mg tablet 60 mg PO QDAY Qty: 15 RF: 0 Primary Care Provider: Ellis Crandall Referrals: Ellis Crandall MD [Primary Care Provider] - 1 Week if not improving Activity Restrictions/Additional Instructions: Plenty of fluids and rest. Tylenol for your headache. Follow-up with your doctor if not improving. Disposition Disposition: Home, Self Care
[2021-05-28 23:29] VITALS: BP 139/70; PULSE 80; RESP 16; O2SAT 99
== END 2021-05-28 23:30 | disposition home or self-care (01) ==
PROVIDERS: Emergency Provider Emergency Medicine; PCP Family Medicine
DX: G44.209 Tension-type headache, unspecified, not intractable (principal); I25.10 Atherosclerotic heart disease of native coronary artery without angina pectoris; Z95.5 Presence of coronary angioplasty implant and graft; Z79.02 Long term (current) use of antithrombotics/antiplatelets; Z79.82 Long term (current) use of aspirin; Z87.891 Personal history of nicotine dependence; F60.3 Borderline personality disorder; I10 Essential (primary) hypertension; I25.2 Old myocardial infarction; I25.5 Ischemic cardiomyopathy; J44.9 Chronic obstructive pulmonary disease, unspecified; K21.9 Gastro-esophageal reflux disease without esophagitis; Z79.52 Long term (current) use of systemic steroids; Z79.899 Other long term (current) drug therapy
CPT/HCPCS: 70450; 80048; 81001; 85025; 99283

== ENCOUNTER 2021-06-07 16:41 | Emergency (ER) | payer MEDICAID, SELFPAY ==
[2021-06-07 16:41] VITALS: BP 160/96; PULSE 78; RESP 16; TEMP 37.6; O2SAT 98; BMI 22.3
--- NOTE | 2021-06-07 16:58 | EDS_ITS ---
HPI History of Present Illness Chief Complaint: Abd Pain Informant: patient Narrative Narrative: Patient is a 55-year-old female who presents to the emergency department for epigastric abdominal pain. This been present over the past 3 or 4 days. She describes as a burning sensation. Does go into her back. Eating makes her nauseous. She denies any change in moving her bowels. No blood or black tarry stools. She has had an EGD before in the past. She denies any known history of ulcers but is on Pepcid. This has not been giving her any relief. She denies any chest pain that is any worse than her baseline or shortness of breath. She describes the pain as severe currently. She has had urinary frequency and some pain when she wipes. No leg swelling or calf pain. She denies any previous abdominal surgeries. 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) Shortness of breath Home Medications aspirin 81 mg tablet,delayed release 81 mg PO DAILY 03/20/21 [History Last Taken 05/16/21 07:00] clopidogrel 75 mg tablet 75 mg PO DAILY #90 tablet 03/20/21 [Rx Last Taken 05/16/21 03:00] albuterol sulfate 90 mcg/actuation aerosol inhaler 2 puff INHALATION Q6H PRN 05/03/21 [History Last Taken Unknown] lamotrigine 25 mg tablet 25 mg PO DAILY 05/03/21 [History Last Taken 05/16/21 08:00] alprazolam 06/07/21 [History Last Taken Unknown] ondansetron 4 mg PO Q8H PRN 4 Days #10 tab 06/07/21 [Rx Last Taken Unknown] sucralfate [Carafate] 1 g PO BID 14 Days #28 tab 06/07/21 [Rx Last Taken Unknown] Allergy/AdvReac Type Severity Reaction Status Date / Time morphine Allergy Hives Verified 05/28/21 19:15 amlodipine AdvReac Intermediate chest Verified 05/28/21 19:15 pain and cannot breathe carvedilol [From Coreg] AdvReac Intermediate throat Verified 05/28/21 19:15 closing up and chest pressure citalopram [From Celexa] AdvReac NAUSEATED Verified 05/28/21 19:15 AND IRRITABLE lisinopril AdvReac SOB, chest Verified 05/28/21 19:15 tightness,throat closing venlafaxine [From Effexor] AdvReac DIDN'T Verified 05/28/21 19:15 WORK Family History Father CAD (coronary artery disease) Myocardial infarction Surgical History H/O section History of coronary artery stent placement (12/18/20) History of left heart catheterization (05/17/21) Social History household members: none Smoking Status: Former smoker quit date: 01/23/21 pack-years: 30 how long ago did patient quit smokin days ago alcohol intake: never substance use type: does not use caffeine: Yes Type: coffee Number of servings: 2 ROS ROS ED Constitutional Constitutional ED: Denies chills or fever(s) Eyes Eyes: Denies change in vision ENT ENT ED: Denies epistaxis or rhinorrhea Cardiovascular Cardiovascular: Denies chest pain or palpitations Respiratory/Chest Respiratory/Chest: Denies cough, dyspnea or dyspnea on exertion Gastrointestinal Gastrointestinal: Reports abdominal pain and nausea; Denies constipation, diarrhea, melena or vomiting Genitourinary Genitourinary ED: Reports urinary frequency; Denies dysuria or hematuria Musculoskeletal Musculoskeletal: Denies back pain or neck pain Integumentary Denies rash Neurologic Neurologic: Denies dizziness, headache(s) or weakness EXAM Physical Exam Const Vital Signs: 06/07/21 16:41 Temperature 99.6 F H Temperature Source Temporal Pulse Rate 78 Respiratory Rate 16 Blood Pressure 160/96 H Blood Pressure Mean 117 Pulse Ox 98 Oxygen Delivery Method Room Air Positive well nourished and well developed General Appearance ED: well developed and NAD HEENT Reports normocephalic, head/scalp atraumatic and moist mucous membranes Eyes PERRL and EOMs intact bilaterally Neck supple Chest Wall inspection of chest normal Resp normal respiratory effort and clear to auscultation bilaterally Auscultation: Negative for rales, rhonchi or wheezes Cardio regular rate, regular rhythm and no murmurs GI normal to inspection, nondistended, normoactive bowel sounds GI Narrative: Tender to epigastrium. Negative Stevens sign. No pain or McBurney's point. Palpation: soft; Negative for guarding or rebound tenderness present Extremity normal to inspection General Extremety ED: Negative for edema or tenderness General Extremity: Negative for edema Neuro oriented x3, CN's II-XII intact bilaterally and no sensory deficits noted Sensorium / Orientation: alert Motor Exam: strength 5/5 throughout Psych mental status grossly normal Skin no rashes or lesions noted MDM MDM MDM Narrative Medical decision making narrative: Patient presents to the ED for epigastric pain. Scribes as a burning sensation. Does go into her back. On arrival to the ED she is mildly hypertensive otherwise normal vital signs. She is in no acute distress. We will treat this symptomatically with a GI cocktail check basic lab work. Patient's lab work did not reveal any significant acute abnormality. She is not anemic. She does not have a high white blood cell count. No significant electrolyte or liver enzyme abnormality. Her lipase is within normal limits. Urine does not show any signs of infection. On reexamination she is feeling much better. She states that she is not supposed to be on Protonix that she is supposed to have H. pylori testing. So did write a prescription for Zofran and Carafate. She is to call her GI specialist in the morning to see if this is okay to take. Her symptoms could be related to gastric ulcer and may need repeat EGD. This time she does feel comfortable going home. Will discharge home in stable condition. Return precautions are reviewed. She understands and is agreeable this plan. All questions were answered. Lab Data Labs: Laboratory Results - last 24 hr 06/07/21 06/07/21 06/07/21 17:18 17:18 17:47 WBC 5.5 RBC 4.31 Hgb 12.6 Hct 37.5 MCV 87.0 MCH 29.2 MCHC 33.6 RDW Std Deviation 42.3 RDW Coeff of Dona 13.3 Plt Count 263 MPV 10.4 Immature Gran % (Auto) 0.400 Neut % (Auto) 55.7 Lymph % (Auto) 35.0 [place] % (Auto) 6.6 Eos % (Auto) 1.6 Baso % (Auto) 0.7 Absolute Neuts (auto) 3.0 Absolute Lymphs (auto) 1.91 Nucleated RBC % 0 Sodium 138 Potassium 3.9 Chloride 107 Carbon Dioxide 25.0 Anion Gap 6 BUN 7 Creatinine 0.66 Estim Creat Clear Calc 77.07 Est GFR (MDRD) Af Amer 119 Est GFR (MDRD) Non-Af 98 BUN/Creatinine Ratio 10.5 Glucose 88 Calcium 9.3 Total Bilirubin 0.20 AST 16 ALT 17 Alkaline Phosphatase 57 Total Protein 7.0 Albumin 3.6 Globulin 3.4 Albumin/Globulin Ratio 1.1 Lipase 87 Urine Color Yellow Urine Clarity Clear Urine pH 8.0 Ur Specific [place] 1.010 Urine Protein Negative Urine Glucose (UA) Normal Urine Ketones Negative Urine Occult Blood Negative Urine Nitrite Negative Urine Bilirubin Negative Urine Urobilinogen Normal Ur Leukocyte Esterase Negative Urine RBC 0 SEEN Urine WBC 0 SEEN Ur Squamous Epith Cells 0 SEEN Urine Bacteria 0 SEEN Urine Mucus 0 SEEN Discharge Plan Triage Chief Complaint: Abd Pain ED Provider: Anand Bonilla Dx/Rx/DC Orders Clinical Impression: Abdominal pain Instructions: Abdominal Pain Prescriptions: New ondansetron 4 mg tablet,disintegrating 4 mg PO Q8H PRN (Reason: nausea and vomiting) 4 Days Qty: 10 RF: 0 sucralfate [Carafate] 1 gram tablet 1 g PO BID 14 Days Qty: 28 RF: 0 No Action aspirin [Adult Low Dose Aspirin] 81 mg tablet,delayed release (DR/EC) 81 mg PO DAILY RF: 0 clopidogrel [Plavix] 75 mg tablet 75 mg PO DAILY Qty: 90 RF: 3 lamotrigine [Lamictal] 25 mg tablet 25 mg PO DAILY RF: 0 albuterol sulfate 90 mcg/actuation HFA aerosol inhaler 2 puff inhalation Q6H PRN (Reason: Shortness Of Breath Or Wheezing) RF: 0 alprazolam 0.5 mg tablet RF: 0 Primary Care Provider: Ellis Crandall Referrals: Ellis Crandall MD [Primary Care Provider] - Disposition Disposition: Home, Self Care Discharge Date/Time: 06/07/21 18:42
[2021-06-07] MEDS: Mag Hydrox/Al Hydrox/Simeth 30 ML UDC PO (17:15)
[2021-06-07 17:32] LABS: Absolute Lymphocyte Count 1.91 X10^3/uL (0.83-4.51); Basophil# 0.04 X10^3/uL; Basophil% 0.7 % (0-1); Eosinophil# 0.09 X10^3/uL; Eosinophils% 1.6 % (0-5); Hematocrit 37.5 % (37-47); Hemoglobin 12.6 g/dL (12.0-15.0); Lymphocyte # 1.91 X10^3/ul (0.83-4.51); Mean Corp Hgb Conc 33.6 g/dL (32-36); Mean Corpuscular Hgb 29.2 pg (27.0-32.0); Mean Platelet Vol. 10.4 fl (6.2-12.0); Monocyte# 0.36 X10^3/uL; Monocyte% 6.6 % (0-10); NRBC Flagged by Analyzer 0 % (0-5); Neutrophil # 3.04 X10^3/uL (2.7-7.7); Neutrophil % 55.7 % (47-70); Platelet Count 263 K/mm3 (150-450); RBC Distribution Width CV 13.3 % (11.6-14.6); RBC Distribution Width SD 42.3 fl (35.1-43.9); Red Blood Count 4.31 M/mm3 (4.2-5.4); White Blood Count 5.5 K/mm3 (4.4-11.0)
[2021-06-07 17:53] LABS: ALB/GLOB Ratio 1.1 RATIO (0.9-2.4); AST(SGOT) 16 U/L (15-37); Alanine Aminotransfer ALT/SGPT 17 U/L (13-56); Albumin, Serum 3.6 g/dL (3.2-5.0); Alkaline Phosphatase 57 U/L (45-117); Anion Gap 6 (5-15); BUN 7 mg/dL (7-18); BUN/Creat Ratio 10.5 RATIO (10-20); Calcium,Total 9.3 mg/dL (8.5-10.1); Chloride 107 mmol/L (98-107); Creatinine, Serum 0.66 mg/dL (0.55-1.02); EST Glomerular Filtration Rate 98 mL/min (>60); Est Glom Filt Rate - Afr Amer 119 mL/min (>60); Estimated Creatinine Clearance 77.07 ml/min; Globulin 3.4 g/dL (2.2-4.2); Glucose 88 mg/dL (74-106); Lipase 87 U/L (73-393); Potassium 3.9 mmol/L (3.5-5.1); Sodium Level 138 mmol/L (136-145)
[2021-06-07 17:53] LABS: Bacteria 0 SEEN /hpf (None Seen); Mucous, Urine 0 SEEN /hpf (<or=2+); Red Blood Cells-Urine 0 SEEN /hpf (0-5); Squamous Epithelial Cells - UA 0 SEEN /hpf (5-10); White Blood Cells 0 SEEN /hpf (0-5)
[2021-06-07 17:56] LABS: Color, Urine Yellow (Yellow); Glucose, Dipstick Normal (Normal); Ketone-Dipstick Negative (Negative); Leukocyte Esterase-Dipstick Negative /ul (Negative); Nitrite-Dipstick Negative (Negative); Occult Blood-Urine Negative /ul (Negative); Protein-Dipstick Negative (Negative); Urine Bilirubin Dipstick Negative (Negative); Urine Clarity Clear (Clear); Urine Urobilinogen Normal (Normal)
== END 2021-06-07 18:42 | disposition home or self-care (01) ==
PROVIDERS: Emergency Provider Emergency Medicine; PCP Family Medicine
DX: R10.9 Unspecified abdominal pain (principal); F60.3 Borderline personality disorder; I10 Essential (primary) hypertension; I25.2 Old myocardial infarction; I25.10 Atherosclerotic heart disease of native coronary artery without angina pectoris; J44.9 Chronic obstructive pulmonary disease, unspecified; I25.5 Ischemic cardiomyopathy; K21.9 Gastro-esophageal reflux disease without esophagitis; Z79.82 Long term (current) use of aspirin; Z79.899 Other long term (current) drug therapy; Z87.891 Personal history of nicotine dependence; F32.9 Major depressive disorder, single episode, unspecified
CPT/HCPCS: 80053; 81001; 83690; 85025; 99284; A4216

== ENCOUNTER 2021-06-19 15:43 | Emergency (ER) | payer MEDICAID, SELFPAY ==
[2021-06-08 10:40] VITALS: BMI 22.3
[2021-06-19 15:44] VITALS: BP 181/110; PULSE 77; RESP 16; TEMP 36; O2SAT 100; BMI 22.3
--- NOTE | 2021-06-19 18:04 | EDS_ITS ---
HPI History of Present Illness Chief Complaint: Abd Pain Informant: patient Narrative Narrative: 55-year-old female presents the emergency room with chronic abdominal pain for months. She notes burning epigastric pain. She notes burning lower back pain. She also notes some burning pain up into her right shoulder. She notes nausea. She was supposed to have an endoscopy states that something went wrong and now it is not to be done until August. She sees [facility] gastroenterology. She is currently taking aspirin and Plavix. She is also on famotidine 40 mg a day. She takes Zofran. No black or bloody stools. 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) Shortness of breath Home Medications aspirin 81 mg tablet,delayed release 81 mg PO DAILY 03/20/21 [History Last Taken 05/16/21 07:00] clopidogrel 75 mg tablet 75 mg PO DAILY #90 tablet 03/20/21 [Rx Last Taken 05/16/21 03:00] lamotrigine 25 mg tablet 25 mg PO DAILY 05/03/21 [History Last Taken 05/16/21 08:00] ondansetron 4 mg PO Q8H PRN 4 Days #10 tab 06/07/21 [Rx Last Taken Unknown] famotidine 40 mg tablet 40 mg PO DAILY 06/08/21 [History Last Taken Unknown] Allergy/AdvReac Type Severity Reaction Status Date / Time morphine Allergy Hives Verified 06/19/21 15:46 amlodipine AdvReac Intermediate chest Verified 06/19/21 15:46 pain and cannot breathe carvedilol [From Coreg] AdvReac Intermediate throat Verified 06/19/21 15:46 closing up and chest pressure citalopram [From Celexa] AdvReac NAUSEATED Verified 06/19/21 15:46 AND IRRITABLE lisinopril AdvReac SOB, chest Verified 06/19/21 15:46 tightness,throat closing venlafaxine [From Effexor] AdvReac DIDN'T Verified 06/19/21 15:46 WORK Family History Father CAD (coronary artery disease) Myocardial infarction Surgical History H/O section History of coronary artery stent placement (12/18/20) History of left heart catheterization (05/17/21) Social History household members: none Smoking Status: Former smoker quit date: 01/23/21 pack-years: 30 how long ago did patient quit smokin days ago alcohol intake: never substance use type: does not use caffeine: Yes Type: coffee Number of servings: 2 ROS ROS ED Constitutional Constitutional ED: Denies chills or weight loss Eyes Eyes: Denies change in vision or diplopia ENT ENT ED: Denies ear pain, rhinorrhea or sore throat Cardiovascular Cardiovascular: Denies chest pain, orthopnea, palpitations or racing heartbeat Respiratory/Chest Respiratory/Chest: Denies cough, dyspnea or orthopnea Gastrointestinal Gastrointestinal: Reports abdominal pain and nausea; Denies diarrhea or vomiting Genitourinary Genitourinary ED: Denies dysuria, hematuria or urinary frequency Musculoskeletal Musculoskeletal: Reports back pain; Denies arthralgias or myalgias Integumentary Denies abscess or rash Neurologic Neurologic: Denies headache(s) or weakness Psychiatric Psychiatric: Denies anxiety, depression, suicidal ideation or suicidal thoughts Endocrine Endocrinology: Denies polydipsia, polyphagia or polyuria Allergic/Immunologic Allergic/Immunologic ED: Denies mouth swelling, tongue swelling or urticaria EXAM Physical Exam Const Vital Signs: 06/19/21 15:44 Temperature 96.8 F L Temperature Source Temporal Pulse Rate 77 Respiratory Rate 16 Blood Pressure 181/110 H Blood Pressure Mean 133 Pulse Ox 100 Oxygen Delivery Method Room Air Positive well nourished and well developed General Appearance ED: well developed HEENT Reports normocephalic, head/scalp atraumatic and moist mucous membranes Eyes PERRL and EOMs intact bilaterally Neck no lymphadenopathy, supple and no JVD Resp normal respiratory effort and clear to auscultation bilaterally Cardio regular rate, regular rhythm and no murmurs GI Palpation: soft and tender epigastric, LUQ and RUQ; Negative for guarding or rebound tenderness present Back/Spine no CVA tenderness and normal ROM Extremity normal to inspection General Extremety ED: Negative for edema General Extremity: Negative for edema Neuro oriented x3 and CN's II-XII intact bilaterally Sensorium / Orientation: alert Motor Exam: strength 5/5 throughout Psych mental status grossly normal Mood & Affect: Negative for depressed or tearful Skin no rashes or lesions noted and no wounds MDM MDM MDM Narrative Medical decision making narrative: Labs and gallbladder ultrasound were ordered. The nursing staff attempted to place an IV and the patient became upset. She states she wants to leave. I will have her sign out AMA. Discharge Plan Triage Chief Complaint: Abd Pain ED Provider: Alhaji Ceja Dx/Rx/DC Orders Clinical Impression: Abdominal pain Instructions: Abdominal Pain Prescriptions: No Action famotidine [Pepcid] 40 mg tablet 40 mg PO DAILY RF: 0 aspirin [Adult Low Dose Aspirin] 81 mg tablet,delayed release (DR/EC) 81 mg PO DAILY RF: 0 clopidogrel [Plavix] 75 mg tablet 75 mg PO DAILY Qty: 90 RF: 3 lamotrigine [Lamictal] 25 mg tablet 25 mg PO DAILY RF: 0 ondansetron 4 mg tablet,disintegrating 4 mg PO Q8H PRN (Reason: nausea and vomiting) 4 Days Qty: 10 RF: 0 Primary Care Provider: Ellis Crandall Referrals: Ellis Crandall MD [Primary Care Provider] - As soon as possible Disposition Disposition: Home, Self Care Capacity Capacity Assessment Tool Can the patient make a choice & communicate that choice?: Yes Can the patient understand benefits, risks and alternatives?: Yes Can the patient make a logical, rational choice?: Yes Is the choice the patient makes consistent w/ their values?: Yes Is there an impending, emergent risk to the patient?: No Does the patient have an Advance Directive?: No Is there a Surrogate Available?: No i.e. HCPOA: No i.e. close relative (spouse, child, parent, sibling)?: No
[2021-06-19 18:45] LABS: Absolute Neutrophil Count 2.1 X10^3/uL (2.0-7.7); Basophil# 0.05 X10^3/uL; Eosinophil# 0.09 X10^3/uL; Eosinophils% 1.8 % (0-5); Hematocrit 39.7 % (37-47); Hemoglobin 13.1 g/dL (12.0-15.0); Mean Platelet Vol. 11.3 fl (6.2-12.0); Monocyte# 0.32 X10^3/uL; Monocyte% 6.5 % (0-10); NRBC Flagged by Analyzer 0 % (0-5); Neutrophil # 2.12 X10^3/uL (2.7-7.7); Neutrophil % 43.5 % (47-70); Platelet Count 275 K/mm3 (150-450); RBC Distribution Width CV 13.2 % (11.6-14.6); RBC Distribution Width SD 42.6 fl (35.1-43.9); Red Blood Count 4.51 M/mm3 (4.2-5.4); White Blood Count 4.9 K/mm3 (4.4-11.0)
== END 2021-06-19 18:40 | disposition home or self-care (01) ==
PROVIDERS: Emergency Provider Emergency Medicine; PCP Family Medicine
DX: R10.9 Unspecified abdominal pain (principal); M54.5 Low back pain; R11.0 Nausea; I25.10 Atherosclerotic heart disease of native coronary artery without angina pectoris; J44.9 Chronic obstructive pulmonary disease, unspecified; F60.3 Borderline personality disorder; I10 Essential (primary) hypertension; I25.2 Old myocardial infarction; I25.5 Ischemic cardiomyopathy; K21.9 Gastro-esophageal reflux disease without esophagitis; Z79.02 Long term (current) use of antithrombotics/antiplatelets; Z79.82 Long term (current) use of aspirin; Z87.891 Personal history of nicotine dependence; Z79.899 Other long term (current) drug therapy
CPT/HCPCS: 85025; 99281; 99282; 99285; A4216

== ENCOUNTER 2021-06-19 21:58 | Emergency (ER) | payer MEDICAID, SELFPAY ==
[2021-06-19 15:44] VITALS: BMI 22.3
[2021-06-19 21:59] VITALS: BP 186/147; PULSE 80; RESP 16; TEMP 37; O2SAT 100; BMI 22.3
[2021-06-19 22:04] VITALS: RESP 18
--- NOTE | 2021-06-19 22:59 | EDS_ITS ---
HPI HPI - GI History of Present Illness Chief Complaint: Abd Pain Informant: patient Abdominal Pain/Flank Pain Onset: Month(s) Timing: Intermittent Quality: Aching Current Severity: Mild Maximum Severity: Mild Nausea/Vomiting/Emesis GI Symptom: Positive for Nausea; Negative for Vomiting Onset: Month(s) Diarrhea/Melena/Hematochezia GI Symptom: Negative for Diarrhea and Melena Associated Symptoms Associated Symptoms: Negative for Dysuria and Frequency Narrative Narrative: 55-year-old female history of CAD with cardiac stent on Plavix and aspirin. Prior C-sections x2 and tubal ligation. Patient has had intermittent diffuse abdominal pain for at least 2 months. She is had prior lab work-up and a CAT scan to the emergency department without any specific diagnosis. She has an upcoming appointment with [facility] GI and possible endoscopy. She denies any melena. She denies any fever. She denies any weight loss. 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) Shortness of breath Home Medications aspirin 81 mg tablet,delayed release 81 mg PO DAILY 03/20/21 [History Last Taken 05/16/21 07:00] clopidogrel 75 mg tablet 75 mg PO DAILY #90 tablet 03/20/21 [Rx Last Taken 05/16/21 03:00] lamotrigine 25 mg tablet 25 mg PO DAILY 05/03/21 [History Last Taken 05/16/21 08:00] ondansetron 4 mg PO Q8H PRN 4 Days #10 tab 06/07/21 [Rx Last Taken Unknown] famotidine 40 mg tablet 40 mg PO DAILY 06/08/21 [History Last Taken Unknown] lorazepam [Ativan] 0.5 mg PO BID PRN 06/19/21 [History Last Taken Unknown] Allergy/AdvReac Type Severity Reaction Status Date / Time morphine Allergy Hives Verified 06/19/21 22:02 amlodipine AdvReac Intermediate chest Verified 06/19/21 22:02 pain and cannot breathe carvedilol [From Coreg] AdvReac Intermediate throat Verified 06/19/21 22:02 closing up and chest pressure citalopram [From Celexa] AdvReac NAUSEATED Verified 06/19/21 22:02 AND IRRITABLE lisinopril AdvReac SOB, chest Verified 06/19/21 22:02 tightness,throat closing venlafaxine [From Effexor] AdvReac DIDN'T Verified 06/19/21 22:02 WORK Family History Father CAD (coronary artery disease) Myocardial infarction Surgical History H/O section History of coronary artery stent placement (12/18/20) History of left heart catheterization (05/17/21) Social History household members: none Smoking Status: Former smoker quit date: 01/23/21 pack-years: 30 how long ago did patient quit smokin days ago alcohol intake: never substance use type: does not use caffeine: Yes Type: coffee Number of servings: 2 ROS ROS ED ROS Narrative Nausea without vomiting. No diarrhea. No melena. No dysuria. No fever. Review of Systems ROS Unobtainable: Denies due to encephalopathy Constitutional Constitutional ED: Denies chills or fever(s) ENT ENT ED: Denies ear pain or sore throat Cardiovascular Cardiovascular: Denies chest pain Respiratory/Chest Respiratory/Chest: Denies cough or dyspnea Gastrointestinal Gastrointestinal: Reports abdominal pain, constipation and nausea; Denies diarrhea, melena or vomiting Genitourinary Genitourinary ED: Denies dysuria or hematuria Musculoskeletal Musculoskeletal: Denies myalgias Integumentary Denies rash Neurologic Neurologic: Denies headache(s) Psychiatric Psychiatric: Denies depression Endocrine Endocrinology: Denies polyuria Hematologic/Lymphatic Hematologic/Lymphatic: Denies easy bruising Allergic/Immunologic Allergic/Immunologic ED: Denies urticaria EXAM Physical Exam Narrative Exam Narrative: Well-appearing middle-aged female no acute distress. Vital signs stable afebrile. Initial blood pressure elevated 186/147 that will be reevaluated. Exam benign. Lungs are clear. Heart regular rate and rhythm no murmur. Abdomen soft. Nondistended. Normal bowel sounds no peritoneal signs. No localizing tenderness. Const Vital Signs: 06/19/21 21:59 06/19/21 22:04 Temperature 98.6 F Temperature Source Temporal Pulse Rate 80 Respiratory Rate 16 18 Blood Pressure 186/147 H Blood Pressure Mean 160 Pulse Ox 100 Oxygen Delivery Method Room Air Room Air Positive well nourished and well developed General Appearance ED: well developed HEENT Reports moist mucous membranes normocephalic and atraumatic; Negative for trauma or tenderness Eyes PERRL and EOMs intact bilaterally Neck no lymphadenopathy, supple and no JVD General: Negative for tenderness Resp normal respiratory effort and clear to auscultation bilaterally Auscultation: Negative for rales, rhonchi or wheezes Cardio regular rate, regular rhythm and no murmurs GI non-tender, non-distended and no masses Auscultation: normoactive bowel sounds Palpation: soft; Negative for tender, guarding or rigid Back/Spine no CVA tenderness Neuro CN's II-XII intact bilaterally and moves all extremities Sensorium / Orientation: alert, oriented to person, oriented to place and oriented to time Psych mental status grossly normal Skin Lesions: no lesions Rashes: no rashes MDM MDM MDM Narrative Medical decision making narrative: Patient's had diffuse intermittent abdominal pain for 2 months. Unchanged. Exam benign. I reviewed her prior work-ups CBC, chemistry, liver enzymes etc. been unremarkable. She had a CAT scan done of her abdomen and pelvis in March which is unremarkable also. Her exam is benign today her abdomen is unremarkable. She has follow-up appointment with [facility] GI and possible upcoming endoscopy. I do not think there is any further labs or work-up we need to do through the emergency department today. At all to get the any value diagnostically. She will be treated with a GI cocktail and Pepcid and discharged to home. Discharge Plan Triage Chief Complaint: Abd Pain ED Provider: Yonas Guzman Dx/Rx/DC Orders Clinical Impression: Abdominal pain Instructions: ED Abdominal Pain Unkn Cause Fem Prescriptions: No Action famotidine [Pepcid] 40 mg tablet 40 mg PO DAILY RF: 0 aspirin [Adult Low Dose Aspirin] 81 mg tablet,delayed release (DR/EC) 81 mg PO DAILY RF: 0 clopidogrel [Plavix] 75 mg tablet 75 mg PO DAILY Qty: 90 RF: 3 lamotrigine [Lamictal] 25 mg tablet 25 mg PO DAILY RF: 0 ondansetron 4 mg tablet,disintegrating 4 mg PO Q8H PRN (Reason: nausea and vomiting) 4 Days Qty: 10 RF: 0 lorazepam [Ativan] 0.5 mg Tablet 0.5 mg PO BID PRN (Reason: Anxiety) RF: 0 Primary Care Provider: Ellis Crandall Referrals: Ellis Crandall MD [Primary Care Provider] - As Needed Activity Restrictions/Additional Instructions: Keep your scheduled [facility] gastroenterology appointment. Follow-up with your primary care physician as needed. Continue your Pepcid. Disposition Disposition: Home, Self Care
[2021-06-19] MEDS: Famotidine 20 MG Tablet 40 MG PO (23:04)
[2021-06-19] MEDS: Mag Hydrox/Al Hydrox/Simeth 30 ML UDC PO (23:04)
[2021-06-19 23:09] VITALS: BP 160/90; PULSE 84; RESP 18; O2SAT 99
== END 2021-06-19 23:09 | disposition home or self-care (01) ==
PROVIDERS: Emergency Provider Emergency Medicine; PCP Family Medicine
DX: R10.9 Unspecified abdominal pain (principal); F60.3 Borderline personality disorder; I10 Essential (primary) hypertension; I25.2 Old myocardial infarction; I25.10 Atherosclerotic heart disease of native coronary artery without angina pectoris; I25.5 Ischemic cardiomyopathy; F31.9 Bipolar disorder, unspecified; J44.9 Chronic obstructive pulmonary disease, unspecified; K21.9 Gastro-esophageal reflux disease without esophagitis; Z79.02 Long term (current) use of antithrombotics/antiplatelets; Z79.82 Long term (current) use of aspirin; Z95.5 Presence of coronary angioplasty implant and graft; Z87.891 Personal history of nicotine dependence; Z79.899 Other long term (current) drug therapy

== ENCOUNTER 2021-06-22 10:32 | Emergency (ER) | payer MEDICAID, SELFPAY ==
[2021-06-22 10:33] VITALS: BP 198/87; PULSE 58; RESP 16; TEMP 36.5; O2SAT 100; BMI 22.2
[2021-06-22 10:39] VITALS: BP 198/87
--- NOTE | 2021-06-22 10:54 | RAD_ITS ---
STUDY: X-RAY CHEST REASON FOR EXAM: Female, 55 years old. Chest pain TECHNIQUE: Single AP portable view of the chest. COMPARISON: 05/16/2021 FINDINGS: EKG leads overlie the chest The lungs are clear and expanded. There is no demonstrated pleural abnormality. Normal size heart. Normal mediastinum and kirsten. Normal visualized pulmonary arteries. Normal visualized aortic arch and descending thoracic aorta. Normal visualized thoracic spine. Normal visualized ribs, clavicles, and shoulders. There is no demonstrated abnormality of the visualized soft tissue structures of the upper abdomen. RAD/Chest 1 View (Portable) IMPRESSION: Normal x-ray examination of the chest. Electronically Signed: Reji Story MD at 11:33 EDT , Service support ,
--- NOTE | 2021-06-22 10:54 | EKG12_ITS ---
Test Reason : CHEST PRESSURE Blood Pressure : / mmHG Vent. Rate : 057 BPM Atrial Rate : 057 BPM P-R Int : 166 ms QRS Dur : 096 ms QT Int : 412 ms P-R-T Axes : 076 064 061 degrees QTc Int : 401 ms Sinus bradycardia Otherwise normal ECG Confirmed by GARLAND KING, ALEX ([id number]), editor in chief newspaper FILI CASTILLO ([id number]) on 06/26/2021 9:17:08 AM Referred By: LINDA Confirmed By:BARRETT HAQUE MD
--- NOTE | 2021-06-22 10:57 | EDS_ITS ---
HPI History of Present Illness Chief Complaint: Chest Other Informant: patient Onset/Context/Timing Onset: Days Context: Gradual Onset Timing: Waxes and wanes Current Severity: Moderate Narrative Narrative: Patient presents with chest pressure and sharp pain to the left shoulder. Patient has had chronic ongoing anterior chest pressure. She states she is getting ready to go to the pulmonology appointment today when she had increased pressure along with sharp pain in her left shoulder blade area and shortness of breath. Patient does have significant cardiac history with prior [place] and cardiac stent. Last heart cath was May 18 of this year that showed no recurrent disease. 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) Shortness of breath Home Medications aspirin 81 mg tablet,delayed release 81 mg PO DAILY 03/20/21 [History Last Taken 05/16/21 07:00] clopidogrel 75 mg tablet 75 mg PO DAILY #90 tablet 03/20/21 [Rx Last Taken 05/16/21 03:00] lamotrigine 25 mg tablet 25 mg PO DAILY 05/03/21 [History Last Taken 05/16/21 08:00] ondansetron 4 mg PO Q8H PRN 4 Days #10 tab 06/07/21 [Rx Last Taken Unknown] famotidine 40 mg tablet 40 mg PO DAILY 06/08/21 [History Last Taken Unknown] lorazepam [Ativan] 0.5 mg PO BID PRN 06/19/21 [History Last Taken Unknown] Lido/Mintox 5 ml PO/SL Q4H PRN 06/22/21 [History Last Taken Unknown] amitriptyline 06/22/21 [History Last Taken Unknown] amitriptyline 10 mg PO QHS 06/22/21 [History Last Taken Unknown] sucralfate 1 g PO Q6H 06/22/21 [History Last Taken Unknown] tramadol 100 mg PO Q8H PRN 3 Days #20 tab 06/22/21 [Rx Last Taken Unknown] Allergy/AdvReac Type Severity Reaction Status Date / Time morphine Allergy Hives Verified 06/22/21 10:33 amlodipine AdvReac Intermediate chest Verified 06/22/21 10:33 pain and cannot breathe carvedilol [From Coreg] AdvReac Intermediate throat Verified 06/22/21 10:33 closing up and chest pressure citalopram [From Celexa] AdvReac NAUSEATED Verified 06/22/21 10:33 AND IRRITABLE lisinopril AdvReac SOB, chest Verified 06/22/21 10:33 tightness,throat closing venlafaxine [From Effexor] AdvReac DIDN'T Verified 06/22/21 10:33 WORK Family History Father CAD (coronary artery disease) Myocardial infarction Surgical History H/O section History of coronary artery stent placement (12/18/20) History of left heart catheterization (05/17/21) Social History household members: none Smoking Status: Former smoker quit date: 01/23/21 pack-years: 30 how long ago did patient quit smokin days ago alcohol intake: never substance use type: does not use caffeine: Yes Type: coffee Number of servings: 2 ROS ROS ED Constitutional Constitutional ED: Denies chills or fever(s) Eyes Eyes: Denies change in vision ENT ENT ED: Denies sore throat Cardiovascular Cardiovascular: Reports chest pain Respiratory/Chest Respiratory/Chest: Reports dyspnea; Denies cough Gastrointestinal Gastrointestinal: Denies abdominal pain, diarrhea, nausea or vomiting Genitourinary Genitourinary ED: Denies dysuria Musculoskeletal Musculoskeletal: Reports back pain Integumentary Denies rash Neurologic Neurologic: Denies headache(s) or weakness Psychiatric Psychiatric: Denies anxiety or depression Endocrine Endocrinology: Denies polydipsia or polyuria Allergic/Immunologic Allergic/Immunologic ED: Denies urticaria EXAM Physical Exam Const Vital Signs: 06/22/21 10:33 06/22/21 10:39 06/22/21 10:43 Temperature 97.7 F L Temperature Source Temporal Pulse Rate 58 L Respiratory Rate 16 Respiratory Effort Non-Labored Blood Pressure 198/87 H 198/87 H Blood Pressure Mean 124 124 Pulse Ox 100 Oxygen Delivery Method Room Air Oxygen Flow Rate (L/min) 06/22/21 11:11 06/22/21 11:49 06/22/21 11:58 Temperature Temperature Source Pulse Rate 53 L 66 Respiratory Rate 18 16 Respiratory Effort Blood Pressure 178/98 H Blood Pressure Mean 124 Pulse Ox 100 100 99 Oxygen Delivery Method Nasal Cannula Nasal Cannula Nasal Cannula Oxygen Flow Rate (L/min) 2 2 2 Positive well nourished and well developed General Appearance ED: well developed HEENT Reports normocephalic and head/scalp atraumatic Eyes PERRL and EOMs intact bilaterally Neck supple Chest Wall inspection of chest normal Chest Narrative: Mild anterior chest wall tenderness. Resp normal respiratory effort and clear to auscultation bilaterally Cardio regular rate and regular rhythm GI normal to inspection, nondistended, normoactive bowel sounds Palpation: soft Back/Spine Back/Spine Narrative: Mild tenderness to palpation of the left scapula. Extremity normal to inspection Neuro oriented x3 and no sensory deficits noted Sensorium / Orientation: alert Motor Exam: strength 5/5 throughout Psych mental status grossly normal Skin no rashes or lesions noted MDM MDM MDM Narrative Medical decision making narrative: EKG, labs, chest x-ray obtained. Patient was given a single tab of tramadol to help with pain. Lab Data Attestation: I reviewed the patient's lab results. Labs: Laboratory Results - last 24 hr 06/22/21 06/22/21 06/22/21 11:14 11:14 11:14 WBC 4.6 RBC 4.47 Hgb 12.7 Hct 39.0 MCV 87.2 MCH 28.4 MCHC 32.6 RDW Std Deviation 42.1 RDW Coeff of Dona 13.2 Plt Count 244 MPV 10.3 Immature Gran % (Auto) 0.000 Neut % (Auto) 36.9 L Lymph % (Auto) 53.9 H [place] % (Auto) 6.5 Eos % (Auto) 2.0 Baso % (Auto) 0.7 Absolute Neuts (auto) 1.7 L Absolute Lymphs (auto) 2.48 Nucleated RBC % 0 D-Dimer Quant (PE/DVT) <= 0.27 Sodium 137 Potassium 3.4 L Chloride 105 Carbon Dioxide 25.0 Anion Gap 7 BUN 12 Creatinine 0.64 Estim Creat Clear Calc 79.48 Est GFR (MDRD) Af Amer 125 Est GFR (MDRD) Non-Af 103 BUN/Creatinine Ratio 18.8 Glucose 87 Calcium 9.8 Troponin I High Sens 4.7 Radiography Diagnostic Testing: Radiology Impression Chest X-Ray 06/22/21 10:54 IMPRESSION: Normal x-ray examination of the chest. Electronically Signed: Reji Sotry MD at 11:33 EDT , Service support , EKG Initial EKG: Attestation: I personally reviewed and interpreted this EKG as follows: Interpretation: Sinus Bradycardia (Sinus bradycardia at 57 bpm. No acute ischemia.) Treatment and Re-Evaluation Comments:: Test results discussed with the patient. Troponin and D-dimer are both negative. Chest x-ray reveals chronic changes only per my interpretation. Patient noted minimal improvement with tramadol. She will be given a short course of this to try at home. She is scheduled to follow-up with GI regarding her ulcer. Discharge Plan Triage Chief Complaint: Chest Other ED Provider: Mirta Albarado Dx/Rx/DC Orders Clinical Impression: Chest pain, non-cardiac Instructions: ED Chest Pain, Noncardiac Prescriptions: New tramadol 50 mg tablet 100 mg PO Q8H PRN (Reason: pain) 3 Days Qty: 20 RF: 0 No Action famotidine [Pepcid] 40 mg tablet 40 mg PO DAILY RF: 0 aspirin [Adult Low Dose Aspirin] 81 mg tablet,delayed release (DR/EC) 81 mg PO DAILY RF: 0 clopidogrel [Plavix] 75 mg tablet 75 mg PO DAILY Qty: 90 RF: 3 lamotrigine [Lamictal] 25 mg tablet 25 mg PO DAILY RF: 0 ondansetron 4 mg tablet,disintegrating 4 mg PO Q8H PRN (Reason: nausea and vomiting) 4 Days Qty: 10 RF: 0 lorazepam [Ativan] 0.5 mg Tablet 0.5 mg PO BID PRN (Reason: Anxiety) RF: 0 sucralfate 1 gram tablet 1 g PO Q6H RF: 0 amitriptyline 10 mg tablet RF: 0 amitriptyline 10 mg tablet 10 mg PO QHS RF: 0 Lido/Mintox 5 ml PO/SL Q4H PRN (Reason: Acid Reflux) RF: 0 Primary Care Provider: Ellis Crandall Referrals: Ellis Crandall MD [Primary Care Provider] - 1-2 Weeks Disposition Disposition: Home, Self Care
[2021-06-22 11:11] VITALS: O2SAT 100
[2021-06-22] MEDS: Aspirin 81 MG TAB.CHEW 324 MG PO (11:12)
[2021-06-22] MEDS: traMADol 50 MG Tablet PO (11:12)
[2021-06-22 11:24] LABS: Absolute Lymphocyte Count 2.48 X10^3/uL (0.83-4.51); Absolute Neutrophil Count 1.7 X10^3/uL (2.0-7.7); Basophil# 0.03 X10^3/uL; Basophil% 0.7 % (0-1); Eosinophil# 0.09 X10^3/uL; Hemoglobin 12.7 g/dL (12.0-15.0); Lymphocyte # 2.48 X10^3/ul (0.83-4.51); Lymphocyte % 53.9 % (19-41); Mean Corp Hgb Conc 32.6 g/dL (32-36); Mean Corpuscular Hgb 28.4 pg (27.0-32.0); Mean Corpuscular Volume 87.2 fL (81-99); Mean Platelet Vol. 10.3 fl (6.2-12.0); Monocyte% 6.5 % (0-10); NRBC Flagged by Analyzer 0 % (0-5); Neutrophil % 36.9 % (47-70); Platelet Count 244 K/mm3 (150-450); RBC Distribution Width CV 13.2 % (11.6-14.6); RBC Distribution Width SD 42.1 fl (35.1-43.9); Red Blood Count 4.47 M/mm3 (4.2-5.4); White Blood Count 4.6 K/mm3 (4.4-11.0)
[2021-06-22 11:39] LABS: D-Dimer Quantitative (DVT/PE) <= 0.27 FEU/ug/m (0.27-0.49)
[2021-06-22 11:42] LABS: Anion Gap 7 (5-15); BUN 12 mg/dL (7-18); BUN/Creat Ratio 18.8 RATIO (10-20); Calcium,Total 9.8 mg/dL (8.5-10.1); Chloride 105 mmol/L (98-107); Creatinine, Serum 0.64 mg/dL (0.55-1.02); EST Glomerular Filtration Rate 103 mL/min (>60); Est Glom Filt Rate - Afr Amer 125 mL/min (>60); Estimated Creatinine Clearance 79.48 ml/min; Glucose 87 mg/dL (74-106); Potassium 3.4 mmol/L (3.5-5.1); Sodium Level 137 mmol/L (136-145); Troponin-I HS 4.7 pg/mL (3.0-53.7)
[2021-06-22 11:49] VITALS: PULSE 53; RESP 18; O2SAT 100
[2021-06-22 11:58] VITALS: BP 178/98; PULSE 66; RESP 16; O2SAT 99
[2021-06-22 12:14] VITALS: BP 164/97; PULSE 63; RESP 16; O2SAT 100
--- NOTE | 2021-06-22 12:15 | ED.RN ---
PT EDUCATED ON WRITTEN AND VERBAL DISCHARGE INSTRUCTIONS, HOME GOING PRESCRIPTIONS AND FOLLOW UP. EDUCATED NOT TO DRIVE WHEN TAKING TRAMADOL. PT VERBALIZES UNDERSTANDING AND DENIES ANY FURTHER QUESTIONS. PT REMOVED FROM [facility]. PT DRESSES SELF AND AMBULATES OUT OF DEPT ALONE.
== END 2021-06-22 12:17 | disposition home or self-care (01) ==
PROVIDERS: Emergency Provider Emergency Medicine; PCP Family Medicine
DX: R07.89 Other chest pain (principal); F60.3 Borderline personality disorder; I10 Essential (primary) hypertension; I25.2 Old myocardial infarction; I25.10 Atherosclerotic heart disease of native coronary artery without angina pectoris; I25.5 Ischemic cardiomyopathy; J44.9 Chronic obstructive pulmonary disease, unspecified; K21.9 Gastro-esophageal reflux disease without esophagitis; Z79.82 Long term (current) use of aspirin; Z79.899 Other long term (current) drug therapy; Z87.891 Personal history of nicotine dependence; Z95.5 Presence of coronary angioplasty implant and graft
CPT/HCPCS: 36415; 71045; 80048; 84484; 85025; 85379; 93005; 99284

== ENCOUNTER → 2021-06-23 09:00 | Outpatient (CLI) | payer MEDICAID, SELFPAY ==
[2021-06-08 10:40] VITALS: BMI 22.3
[2021-06-22 10:33] VITALS: BMI 22.2
--- NOTE | 2021-06-23 09:10 | RAD_ITS ---
STUDY: AIR-CONTRAST BARIUM SWALLOW REASON FOR EXAM: Female, 55 years old. DYSPHAGIA RADIATION DOSAGE (If Supplied By Facility): CTDIvol = ( ) mGy, DLP = ( ) mGycm. Individualized dose optimization techniques were used for this CT.? FLUOROSCOPY TIME (if supplied): ( ) minutes/seconds TECHNIQUE: Air-contrast COMPARISON: None. FINDINGS: Swallowing was initiated normally. No nasopharyngeal reflux or aspiration. No Zenker''s diverticulum was noted on the lateral view. Normal peristaltic activity noted in the proximal mid and distal esophagus. No evidence of hiatal hernia though there was evidence of GE reflux, particularly with increased intrathoracic pressure. A 13 mm barium pill passed through the esophagus without difficulty RAD/Esophagus Dual Contrast IMPRESSION: GE reflux Electronically Signed: Reji Story MD at 10:06 EDT , Service support ,
== END ==
PROVIDERS: PCP Family Medicine; Referring Provider Nurse Practitioner; Visit Provider Nurse Practitioner
DX: K30 Functional dyspepsia (principal)
CPT/HCPCS: 74221

== ENCOUNTER 2021-07-07 23:26 | Emergency (ER) | payer MEDICAID, SELFPAY ==
[2021-07-07 23:27] VITALS: BP 171/98; PULSE 71; RESP 15; TEMP 36.6; O2SAT 98; BMI 22.4
--- NOTE | 2021-07-08 01:27 | EKG12_ITS ---
Test Reason : PALPITATIONS Blood Pressure : / mmHG Vent. Rate : 064 BPM Atrial Rate : 064 BPM P-R Int : 168 ms QRS Dur : 094 ms QT Int : 420 ms P-R-T Axes : 066 057 058 degrees QTc Int : 433 ms Normal sinus rhythm Normal ECG Confirmed by JORJE KING, LEONIDES ([id number]), supervising editor trailer FILI CASTILLO ([id number]) on 07/11/2021 9:37:07 AM Referred By: BB Confirmed By:LEONIDES RECINOS MD
[2021-07-08 01:49] LABS: Absolute Lymphocyte Count 2.91 X10^3/uL (0.83-4.51); Absolute Neutrophil Count 2.5 X10^3/uL (2.0-7.7); Basophil# 0.05 X10^3/uL; Basophil% 0.8 % (0-1); Eosinophil# 0.15 X10^3/uL; Eosinophils% 2.5 % (0-5); Hematocrit 40.5 % (37-47); Hemoglobin 12.9 g/dL (12.0-15.0); Lymphocyte # 2.91 X10^3/ul (0.83-4.51); Mean Corp Hgb Conc 31.9 g/dL (32-36); Mean Corpuscular Hgb 28.5 pg (27.0-32.0); Mean Corpuscular Volume 89.6 fL (81-99); Mean Platelet Vol. 9.8 fl (6.2-12.0); Monocyte# 0.36 X10^3/uL; Monocyte% 6.1 % (0-10); NRBC Flagged by Analyzer 0 % (0-5); Neutrophil # 2.46 X10^3/uL (2.7-7.7); Neutrophil % 41.4 % (47-70); Platelet Count 264 K/mm3 (150-450); RBC Distribution Width CV 13.2 % (11.6-14.6); RBC Distribution Width SD 43.4 fl (35.1-43.9); Red Blood Count 4.52 M/mm3 (4.2-5.4); White Blood Count 5.9 K/mm3 (4.4-11.0)
[2021-07-08 02:10] LABS: Anion Gap 4 (5-15); BUN 10 mg/dL (7-18); BUN/Creat Ratio 16.2 RATIO (10-20); Calcium,Total 9.2 mg/dL (8.5-10.1); Chloride 105 mmol/L (98-107); Creatinine, Serum 0.62 mg/dL (0.55-1.02); EST Glomerular Filtration Rate 107 mL/min (>60); Est Glom Filt Rate - Afr Amer 129 mL/min (>60); Estimated Creatinine Clearance 82.04 ml/min; Glucose 86 mg/dL (74-106); Potassium 3.5 mmol/L (3.5-5.1); Sodium Level 137 mmol/L (136-145); Troponin-I HS 5.4 pg/mL (3.0-53.7)
[2021-07-08 02:21] VITALS: PULSE 72; RESP 14
--- NOTE | 2021-07-08 02:32 | EDS_ITS ---
HPI History of Present Illness Chief Complaint: Palpitations Informant: patient Onset/Context/Timing Onset: Today Timing: Intermittent and Lasts (Seconds) Quality: Skipping or flopping Location: Left chest Current Severity: Gone Maximum Severity: Moderate Worsened by: Nothing in particular Relieved by: Nothing in particular Associated Symptoms Associated Symptoms: No chest pain, shortness of breath, vomiting, sweating, lightheaded/syncope Narrative Narrative: Palpitations occurring more than usual today. She has had these in the past. She has a history of a stent and had some of this after her stent was placed but it was transient. She was placed on metoprolol and diltiazem in the past but did not tolerate them. She denies any recent illness. No illicit drug use or more caffeine than usual, she drinks 1 cup of coffee per day or less. [facility] Medical History Adverse drug reaction Anxiety disorder Atherosclerotic heart disease of [place] coronary artery without angina pectoris Bipolar affective disorder Borderline personality disorder Chest pain of uncertain etiology Chest pain, non-cardiac Chronic left-sided thoracic back pain COPD (chronic obstructive pulmonary disease) Depression Essential (primary) hypertension Former smoker GERD (gastroesophageal reflux disease) Headache History of ST elevation myocardial infarction (STEMI) (12/18/20) Ischemic cardiomyopathy Myocardial infarct Nicotine dependence 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) Shortness of breath Home Medications aspirin 81 mg tablet,delayed release 81 mg PO DAILY 03/20/21 [History Last Taken 05/16/21 07:00] clopidogrel 75 mg tablet 75 mg PO DAILY #90 tablet 03/20/21 [Rx Last Taken 05/16/21 03:00] lamotrigine 25 mg tablet 25 mg PO DAILY 05/03/21 [History Last Taken 05/16/21 08:00] ondansetron 4 mg PO Q8H PRN 4 Days #10 tab 06/07/21 [Rx Last Taken Unknown] famotidine 40 mg tablet 40 mg PO DAILY 06/08/21 [History Last Taken Unknown] lorazepam [Ativan] 0.5 mg PO BID PRN 06/19/21 [History Last Taken Unknown] Lido/Mintox 5 ml PO/SL Q4H PRN 06/22/21 [History Last Taken Unknown] amitriptyline 10 mg PO QHS 06/22/21 [History Last Taken Unknown] sucralfate 1 g PO Q6H 06/22/21 [History Last Taken Unknown] tramadol 100 mg PO Q8H PRN 3 Days #20 tab 06/22/21 [Rx Last Taken Unknown] Allergy/AdvReac Type Severity Reaction Status Date / Time morphine Allergy Hives Verified 07/07/21 23:27 amlodipine AdvReac Intermediate chest Verified 07/07/21 23:27 pain and cannot breathe carvedilol [From Coreg] AdvReac Intermediate throat Verified 07/07/21 23:27 closing up and chest pressure citalopram [From Celexa] AdvReac NAUSEATED Verified 07/07/21 23:27 AND IRRITABLE lisinopril AdvReac SOB, chest Verified 07/07/21 23:27 tightness,throat closing venlafaxine [From Effexor] AdvReac DIDN'T Verified 07/07/21 23:27 WORK Family History Father CAD (coronary artery disease) Myocardial infarction Surgical History H/O section History of coronary artery stent placement (12/18/20) History of left heart catheterization (05/17/21) Social History household members: none Smoking Status: Former smoker quit date: 01/23/21 pack-years: 30 how long ago did patient quit smokin days ago alcohol intake: never substance use type: does not use caffeine: Yes Type: coffee Number of servings: 2 ROS ROS ED Constitutional Constitutional ED: Denies chills or fever(s) Eyes Eyes: Denies change in vision or diplopia ENT ENT ED: Denies rhinorrhea or sore throat Cardiovascular Cardiovascular: Reports as per HPI and palpitations; Denies chest pain Respiratory/Chest Respiratory/Chest: Denies cough or dyspnea Gastrointestinal Gastrointestinal: Denies abdominal pain, diarrhea, nausea or vomiting Genitourinary Genitourinary ED: Denies dysuria or hematuria Musculoskeletal Musculoskeletal: Denies back pain or neck pain Integumentary Denies abscess or rash Neurologic Neurologic: Denies headache(s), paresthesias or weakness Psychiatric Psychiatric: Reports anxiety; Denies suicidal thoughts EXAM Physical Exam Const Vital Signs: 07/07/21 23:27 07/08/21 00:44 07/08/21 02:21 Temperature 97.8 F Temperature Source Temporal Pulse Rate 71 72 Respiratory Rate 15 14 Respiratory Effort Normal Non-Labored Respiratory Pattern Normal Blood Pressure 171/98 H Blood Pressure Mean 122 Pulse Ox 98 Oxygen Delivery Method Room Air Positive well nourished and well developed General Appearance ED: well developed and NAD HEENT Reports moist mucous membranes normocephalic and atraumatic Eyes PERRL and EOMs intact bilaterally Neck full ROM and supple Resp normal respiratory effort and clear to auscultation bilaterally Cardio regular rate, regular rhythm and no murmurs GI non-tender and non-distended Auscultation: normoactive bowel sounds Palpation: soft Back/Spine no CVA tenderness General Back: other FROM Extremity normal to inspection General Extremety ED: Negative for edema, pulses abnormal or tenderness General Extremity: Negative for edema or pulses abnormal Neuro oriented x3, CN's II-XII intact bilaterally and no sensory deficits noted Sensorium / Orientation: awake and alert Motor Exam: strength 5/5 throughout Skin no rashes or lesions noted and no wounds MDM MDM MDM Narrative Medical decision making narrative: While being monitored in the emergency department since her EKG, she had no recurrent symptoms or events on telemetry. She is here on Saturday night/Saturday morning shift, and states she has an appointment with new ride attendant on Saturday. She is comfortable going home and resting without any new medications, given her intolerance to chronotropic's in the past. We discussed reasons to return she is comfortable with that plan. Lab Data Attestation: I reviewed the patient's lab results. Labs: Laboratory Results - last 24 hr 07/08/21 07/08/21 01:32 01:32 WBC 5.9 RBC 4.52 Hgb 12.9 Hct 40.5 MCV 89.6 MCH 28.5 MCHC 31.9 L RDW Std Deviation 43.4 RDW Coeff of Dona 13.2 Plt Count 264 MPV 9.8 Immature Gran % (Auto) 0.200 Neut % (Auto) 41.4 L Lymph % (Auto) 49.0 H [place] % (Auto) 6.1 Eos % (Auto) 2.5 Baso % (Auto) 0.8 Absolute Neuts (auto) 2.5 Absolute Lymphs (auto) 2.91 Nucleated RBC % 0 Sodium 137 Potassium 3.5 Chloride 105 Carbon Dioxide 28.0 Anion Gap 4 L BUN 10 Creatinine 0.62 Estim Creat Clear Calc 82.04 Est GFR (MDRD) Af Amer 129 Est GFR (MDRD) Non-Af 107 BUN/Creatinine Ratio 16.2 Glucose 86 Calcium 9.2 Troponin I High Sens 5.4 Rhythm Strip Rhythm Strip: Sinus Rhythm Rate: 65 Ectopy: None EKG Initial EKG: Attestation: I personally reviewed and interpreted this EKG as follows: Interpretation: Sinus Rhythm and No Acute Injury Pattern Discharge Plan Triage Chief Complaint: Palpitations ED Provider: Khadar Izaguirre Dx/Rx/DC Orders Clinical Impression: Intermittent palpitations Instructions: ED Palpitations Prescriptions: No Action famotidine [Pepcid] 40 mg tablet 40 mg PO DAILY RF: 0 aspirin [Adult Low Dose Aspirin] 81 mg tablet,delayed release (DR/EC) 81 mg PO DAILY RF: 0 clopidogrel [Plavix] 75 mg tablet 75 mg PO DAILY Qty: 90 RF: 3 lamotrigine [Lamictal] 25 mg tablet 25 mg PO DAILY RF: 0 ondansetron 4 mg tablet,disintegrating 4 mg PO Q8H PRN (Reason: nausea and vomiting) 4 Days Qty: 10 RF: 0 lorazepam [Ativan] 0.5 mg Tablet 0.5 mg PO BID PRN (Reason: Anxiety) RF: 0 sucralfate 1 gram tablet 1 g PO Q6H RF: 0 amitriptyline 10 mg tablet 10 mg PO QHS RF: 0 Lido/Mintox 5 ml PO/SL Q4H PRN (Reason: Acid Reflux) RF: 0 tramadol 50 mg tablet 100 mg PO Q8H PRN (Reason: pain) 3 Days Qty: 20 RF: 0 Primary Care Provider: Ellis Crandall Referrals: Ellis Crandall MD [Primary Care Provider] - Doctor,Your [STAFF PHYSICIAN] - Keep [facility] appointment Disposition Disposition: Home, Self Care
[2021-07-08 02:39] VITALS: PULSE 85; O2SAT 100
== END 2021-07-08 02:39 | disposition home or self-care (01) ==
PROVIDERS: Emergency Provider Emergency Medicine; PCP Family Medicine
DX: R00.2 Palpitations (principal); I25.10 Atherosclerotic heart disease of native coronary artery without angina pectoris; F31.9 Bipolar disorder, unspecified; F60.3 Borderline personality disorder; J44.9 Chronic obstructive pulmonary disease, unspecified; K21.9 Gastro-esophageal reflux disease without esophagitis; I25.2 Old myocardial infarction; Z79.82 Long term (current) use of aspirin; Z95.5 Presence of coronary angioplasty implant and graft; Z79.899 Other long term (current) drug therapy; Z87.891 Personal history of nicotine dependence
CPT/HCPCS: 80048; 84484; 85025; 93005; 99283

== ENCOUNTER 2021-07-11 19:39 | Emergency (ER) | payer MEDICAID, SELFPAY ==
[2021-07-11 19:39] VITALS: BP 158/103; PULSE 88; RESP 18; TEMP 36.8; O2SAT 99; BMI 18.6
--- NOTE | 2021-07-11 19:48 | ED.RN ---
RN CALLED FOR EKG, PULLED OLD EKGS FOR
--- NOTE | 2021-07-11 20:24 | EKG12_ITS ---
Test Reason : CP Blood Pressure : / mmHG Vent. Rate : 085 BPM Atrial Rate : 085 BPM P-R Int : 146 ms QRS Dur : 086 ms QT Int : 380 ms P-R-T Axes : 064 056 047 degrees QTc Int : 452 ms Normal sinus rhythm Normal ECG Confirmed by JORJE KING, LEONIDES ([id number]), rewrite editor FILI CASTILLO ([id number]) on 07/12/2021 1:48:14 PM Referred By: BB Confirmed By:LEONIDES RECINOS MD
[2021-07-11] MEDS: Aspirin 81 MG TAB.CHEW 324 MG PO (20:35)
[2021-07-11 20:43] VITALS: BP 170/117; PULSE 67; RESP 18; O2SAT 100
--- NOTE | 2021-07-11 20:45 | RAD_ITS ---
HISTORY: chest pain EXAMINATION/TECHNIQUE: XR Chest 1 View: Portable upright AP chest x-ray COMPARISON: 06/22/21 FINDINGS: LINES/DEVICES: None. LUNGS: No consolidation, edema or effusion. No pneumothorax. MEDIASTINUM AND CARDIOVASCULAR STRUCTURES: Cardiac silhouette not enlarged. Central airways and mediastinal contour are unremarkable. BONES AND SOFT TISSUES: No acute bony abnormalities. RAD/Chest 1 View (Portable) IMPRESSION: No radiographic evidence of acute cardiopulmonary disease. at 2158 Reported and signed by: Naseem Lu MD Electronically Signed: Naseem Lu MD at 21:57 EDT Tel , Service support ,
[2021-07-11 20:48] LABS: Absolute Neutrophil Count 2.3 X10^3/uL (2.0-7.7); Basophil# 0.04 X10^3/uL; Basophil% 0.6 % (0-1); Eosinophil# 0.12 X10^3/uL; Eosinophils% 1.9 % (0-5); Hematocrit 38.4 % (37-47); Hemoglobin 12.5 g/dL (12.0-15.0); Mean Corp Hgb Conc 32.6 g/dL (32-36); Mean Corpuscular Hgb 28.7 pg (27.0-32.0); Mean Corpuscular Volume 88.1 fL (81-99); Mean Platelet Vol. 10.2 fl (6.2-12.0); Monocyte# 0.46 X10^3/uL; Monocyte% 7.3 % (0-10); NRBC Flagged by Analyzer 0 % (0-5); Neutrophil # 2.27 X10^3/uL (2.7-7.7); Platelet Count 252 K/mm3 (150-450); RBC Distribution Width CV 13.2 % (11.6-14.6); RBC Distribution Width SD 43.2 fl (35.1-43.9); Red Blood Count 4.36 M/mm3 (4.2-5.4); White Blood Count 6.3 K/mm3 (4.4-11.0)
[2021-07-11 21:04] VITALS: BP 168/103; PULSE 69; RESP 15; O2SAT 99
[2021-07-11 21:08] LABS: Anion Gap 6 (5-15); BUN 9 mg/dL (7-18); BUN/Creat Ratio 15.8 RATIO (10-20); Calcium,Total 9.1 mg/dL (8.5-10.1); Chloride 107 mmol/L (98-107); Creatinine, Serum 0.57 mg/dL (0.55-1.02); EST Glomerular Filtration Rate 118 mL/min (>60); Est Glom Filt Rate - Afr Amer 142 mL/min (>60); Estimated Creatinine Clearance 82.41 ml/min; Glucose 80 mg/dL (74-106); Potassium 3.7 mmol/L (3.5-5.1); Sodium Level 138 mmol/L (136-145); Troponin-I HS 4.5 pg/mL (3.0-53.7)
[2021-07-11 22:07] VITALS: BP 179/91; PULSE 56; RESP 12; O2SAT 100
--- NOTE | 2021-07-11 22:28 | ED.VIS.CHEST ---
HPI History of Present Illness Chief Complaint: Chest Pain Informant: patient Onset/Context/Timing Onset: Today Narrative Narrative: Patient presents with burning chest pain since 2:30 PM 6 hours prior to arrival. Patient presented with STEMI back in November with an RCA stent. She states has been having on and off symptoms since then. She has been cath multiple times since then with no acute findings. She states she is currently only on Plavix, she sought a second opinion with [facility] cardiology Dr. Luciano and was taken off aspirin due to stomach upset. She tried GI medications with Maalox and Pepcid with no relief. Denies cough symptoms. Patient quit smoking in January. Hypertension history. Denies hypercholesterolemia. Family history of [place] in her father. Evaluation records STEMI back in November the RCA. She had a cardiac cath in January with patent stent. She had recath in April of this year with a patent stent. There is noted 50% ostial lesion of the diagonal first branch noted. Prior Similar Symptoms: Yes CVD Risk Factors: Positive for Hypertension [facility] Medical History Adverse drug reaction Anxiety disorder Atherosclerotic heart disease of [place] coronary artery without angina pectoris Bipolar affective disorder Borderline personality disorder Chest pain of uncertain etiology Chest pain, non-cardiac Chronic left-sided thoracic back pain COPD (chronic obstructive pulmonary disease) Depression Essential (primary) hypertension Former smoker GERD (gastroesophageal reflux disease) Headache History of ST elevation myocardial infarction (STEMI) (12/18/20) Ischemic cardiomyopathy Myocardial infarct Nicotine dependence 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) Shortness of breath Home Medications aspirin 81 mg tablet,delayed release 81 mg PO DAILY 03/20/21 [History Last Taken 05/16/21 07:00] clopidogrel 75 mg tablet 75 mg PO DAILY #90 tablet 03/20/21 [Rx Last Taken 05/16/21 03:00] lamotrigine 25 mg tablet 25 mg PO DAILY 05/03/21 [History Last Taken 05/16/21 08:00] ondansetron 4 mg PO Q8H PRN 4 Days #10 tab 06/07/21 [Rx Last Taken Unknown] famotidine 40 mg tablet 40 mg PO DAILY 06/08/21 [History Last Taken Unknown] lorazepam [Ativan] 0.5 mg PO BID PRN 06/19/21 [History Last Taken Unknown] Lido/Mintox 5 ml PO/SL Q4H PRN 06/22/21 [History Last Taken Unknown] amitriptyline 10 mg PO QHS 06/22/21 [History Last Taken Unknown] sucralfate 1 g PO Q6H 06/22/21 [History Last Taken Unknown] tramadol 100 mg PO Q8H PRN 3 Days #20 tab 06/22/21 [Rx Last Taken Unknown] Allergy/AdvReac Type Severity Reaction Status Date / Time morphine Allergy Hives Verified 07/11/21 19:42 amlodipine AdvReac Intermediate chest Verified 07/11/21 19:42 pain and cannot breathe carvedilol [From Coreg] AdvReac Intermediate throat Verified 07/11/21 19:42 closing up and chest pressure citalopram [From Celexa] AdvReac NAUSEATED Verified 07/11/21 19:42 AND IRRITABLE lisinopril AdvReac SOB, chest Verified 07/11/21 19:42 tightness,throat closing venlafaxine [From Effexor] AdvReac DIDN'T Verified 07/11/21 19:42 WORK Family History Father CAD (coronary artery disease) Myocardial infarction Surgical History H/O section History of coronary artery stent placement (12/18/20) History of left heart catheterization (05/17/21) Social History household members: none Smoking Status: Former smoker quit date: 01/23/21 pack-years: 30 how long ago did patient quit smokin days ago alcohol intake: never substance use type: does not use caffeine: Yes Type: coffee Number of servings: 2 ROS ROS ED Constitutional Constitutional ED: Denies chills, fever(s) or sweats Eyes Eyes: Denies change in vision ENT ENT ED: Denies dysphagia or sore throat Cardiovascular Cardiovascular: Reports chest pain; Denies leg edema, palpitations or racing heartbeat Respiratory/Chest Respiratory/Chest: Denies cough, dyspnea or dyspnea on exertion Gastrointestinal Gastrointestinal: Denies abdominal pain, diarrhea, nausea or vomiting Genitourinary Genitourinary ED: Denies dysuria, hematuria or urinary frequency Musculoskeletal Musculoskeletal: Denies back pain, extremity pain or neck pain Integumentary Denies rash or wounds Neurologic Neurologic: Denies headache(s), paresthesias or weakness EXAM Physical Exam Const Vital Signs: 07/11/21 19:39 07/11/21 19:42 07/11/21 20:04 Temperature 98.3 F Temperature Source Temporal Pulse Rate 88 Respiratory Rate 18 Respiratory Effort Normal Respiratory Pattern Normal Normal Blood Pressure 158/103 H Blood Pressure Mean 121 Pulse Ox 99 Oxygen Delivery Method Room Air 07/11/21 20:43 07/11/21 21:04 07/11/21 22:07 Temperature Temperature Source Pulse Rate 67 69 56 L Respiratory Rate 18 15 12 Respiratory Effort Respiratory Pattern Blood Pressure 170/117 H 168/103 H 179/91 H Blood Pressure Mean 134 124 120 Pulse Ox 100 99 100 Oxygen Delivery Method Room Air Room Air Room Air 07/11/21 23:14 Temperature Temperature Source Pulse Rate 65 Respiratory Rate 16 Respiratory Effort Respiratory Pattern Blood Pressure 182/99 H Blood Pressure Mean 126 Pulse Ox 99 Oxygen Delivery Method Room Air Positive well nourished and well developed General Appearance ED: well developed and NAD HEENT Reports moist mucous membranes normocephalic and atraumatic Eyes PERRL, EOMs intact bilaterally and conjunctivae normal General Eye ED: Yes normal appearance of both eyes Neck no lymphadenopathy and supple General: Negative for tenderness Chest Wall Chest: Negative for tenderness Resp normal respiratory effort and normal air movement Effort and Inspection: symmetric chest movement; Negative for respiratory distress Cardio regular rate, regular rhythm and no murmurs Peripheral Pulses: pulses 2+ throughout GI normal to inspection, nondistended, normoactive bowel sounds and non-tender Palpation: Negative for guarding or rebound tenderness present Back/Spine no CVA tenderness and no thoracic nor lumbar tenderness Extremity normal to inspection General Extremety ED: Negative for edema or tenderness General Extremity: Negative for edema Neuro oriented x3 and no sensory deficits noted Sensorium / Orientation: awake and alert Skin no rashes or lesions noted and no wounds Heart Score History: Moderately Suspicious ECG: Normal Age: >45 - <65 years Risk Factors: >/= 3 Risk Factors or History of CAD Troponin: </= Normal Limit Score: 4 MDM MDM MDM Narrative Medical decision making narrative: Patient presenting chest pains intermittent sharp sensations. She was given aspirin. Cardiac work-up negative with 2 high-sensitivity troponins. Chest x-ray negative. Reevaluation symptoms improving. She has been having ongoing on and off symptoms. Reviewing of her last cath she had a patent RCA, she had a 50% diagonal lesion. I discussed results with the patient. I discussed potentially starting her on Imdur due to ongoing symptoms however she states she would like to talk to her ceramic artist first. Her heart score is a 4, however she had 2 negative high-sensitivity troponins. This was written on discharge papers for the discussion. Signs and symptoms discussed return. All questions were answered. Lab Data Attestation: I reviewed the patient's lab results. Labs: Laboratory Results - last 24 hr 07/11/21 07/11/21 07/11/21 20:40 20:40 22:43 WBC 6.3 RBC 4.36 Hgb 12.5 Hct 38.4 MCV 88.1 MCH 28.7 MCHC 32.6 RDW Std Deviation 43.2 RDW Coeff of Dona 13.2 Plt Count 252 MPV 10.2 Immature Gran % (Auto) 0.200 Neut % (Auto) 36.0 L Lymph % (Auto) 54.0 H [place] % (Auto) 7.3 Eos % (Auto) 1.9 Baso % (Auto) 0.6 Absolute Neuts (auto) 2.3 Absolute Lymphs (auto) 3.40 Nucleated RBC % 0 Sodium 138 Potassium 3.7 Chloride 107 Carbon Dioxide 25.0 Anion Gap 6 BUN 9 Creatinine 0.57 Estim Creat Clear Calc 82.41 Est GFR (MDRD) Af Amer 142 Est GFR (MDRD) Non-Af 118 BUN/Creatinine Ratio 15.8 Glucose 80 Calcium 9.1 Troponin I High Sens 4.5 5.2 Radiography Diagnostic Testing: Radiology Impression Chest X-Ray 07/11/21 20:45 IMPRESSION: No radiographic evidence of acute cardiopulmonary disease. at 6918 Reported and signed by: Naseem Lu MD Electronically Signed: Naseem Lu MD at 21:57 EDT Tel , Service support , EKG Initial EKG: Attestation: I personally reviewed and interpreted this EKG as follows: Comments: Sinus rate of 85, no ST or T wave changes. Discharge Plan Triage Chief Complaint: Chest Pain ED Provider: Tim Rjoas Dx/Rx/DC Orders Clinical Impression: Chest pain Instructions: ED Chest Pain, Uncertain Cause Prescriptions: No Action famotidine [Pepcid] 40 mg tablet 40 mg PO DAILY RF: 0 aspirin [Adult Low Dose Aspirin] 81 mg tablet,delayed release (DR/EC) 81 mg PO DAILY RF: 0 clopidogrel [Plavix] 75 mg tablet 75 mg PO DAILY Qty: 90 RF: 3 lamotrigine [Lamictal] 25 mg tablet 25 mg PO DAILY RF: 0 ondansetron 4 mg tablet,disintegrating 4 mg PO Q8H PRN (Reason: nausea and vomiting) 4 Days Qty: 10 RF: 0 lorazepam [Ativan] 0.5 mg Tablet 0.5 mg PO BID PRN (Reason: Anxiety) RF: 0 sucralfate 1 gram tablet 1 g PO Q6H RF: 0 amitriptyline 10 mg tablet 10 mg PO QHS RF: 0 Lido/Mintox 5 ml PO/SL Q4H PRN (Reason: Acid Reflux) RF: 0 tramadol 50 mg tablet 100 mg PO Q8H PRN (Reason: pain) 3 Days Qty: 20 RF: 0 Primary Care Provider: Ellis Crandall Referrals: Ellis Crandall MD [Primary Care Provider] - Activity Restrictions/Additional Instructions: Cardiac work-up negative today. From year last heart cath in April 2021, noted patent right RCA stent. Noted 50% diagonal 1 ostial lesion. Normal ejection fraction. Other vessels patent. Discussed with your ceramic artist of potentially starting you on Imdur to assist with chest symptoms. Return if any worsening symptoms. Disposition Disposition: Home, Self Care
[2021-07-11 23:09] LABS: Troponin-I HS 5.2 pg/mL (3.0-53.7)
[2021-07-11 23:14] VITALS: BP 182/99; PULSE 65; RESP 16; O2SAT 99
== END 2021-07-11 23:44 | disposition home or self-care (01) ==
PROVIDERS: Emergency Provider Emergency Medicine; PCP Family Medicine
DX: R07.9 Chest pain, unspecified (principal); I25.10 Atherosclerotic heart disease of native coronary artery without angina pectoris; J44.9 Chronic obstructive pulmonary disease, unspecified; K21.9 Gastro-esophageal reflux disease without esophagitis; Z87.891 Personal history of nicotine dependence; I25.2 Old myocardial infarction; I10 Essential (primary) hypertension; Z79.02 Long term (current) use of antithrombotics/antiplatelets; Z79.82 Long term (current) use of aspirin; Z79.899 Other long term (current) drug therapy; Z82.49 Family history of ischemic heart disease and other diseases of the circulatory system
CPT/HCPCS: 36415; 71045; 80048; 84484; 85025; 93005; 99284

== ENCOUNTER 2021-07-16 13:54 | Emergency (ER) | payer MEDICAID, SELFPAY ==
[2021-07-16 13:55] VITALS: BP 169/92; PULSE 77; RESP 18; TEMP 36.1; O2SAT 97; BMI 22.1
[2021-07-16 14:47] VITALS: BP 162/117; PULSE 75; RESP 15; O2SAT 100
--- NOTE | 2021-07-16 15:00 | RAD_ITS ---
EXAM: XR CHEST, 2 VIEWS : 1965 CLINICAL INDICATION: chest pain TECHNIQUE: Frontal and lateral views of the chest. This report was created using [employer] report generation technology. COMPARISON: 07/11/2021 FINDINGS: LUNGS AND PLEURAL SPACES: The lungs are hyperinflated. No pneumothorax. No effusion. HEART: Unremarkable. Cardiac silhouette not enlarged. MEDIASTINUM: Central airways and mediastinal contour are unremarkable. BONES/JOINTS: Unremarkable. SOFT TISSUES: Unremarkable. RAD/Chest PA and Lateral IMPRESSION: Pulmonary hyperinflation with no acute pulmonary abnormality. at 1605 Reported and signed by: Francis Schulz MD Electronically Signed: Francis Schulz MD at 16:04 EDT Tel , Service support ,
--- NOTE | 2021-07-16 15:00 | EKG12_ITS ---
Test Reason : CP Blood Pressure : / mmHG Vent. Rate : 075 BPM Atrial Rate : 075 BPM P-R Int : 140 ms QRS Dur : 088 ms QT Int : 394 ms P-R-T Axes : 075 074 045 degrees QTc Int : 439 ms Normal sinus rhythm Normal ECG Confirmed by JORJE IKNG, LEONIDES ([id number]), digital editor FILI CASTILLO ([id number]) on 07/20/2021 10:51:21 AM Referred By: MIGUEL/JOHN Confirmed By:LEONIDES RECINOS MD
[2021-07-16 15:13] VITALS: BP 187/122; PULSE 66; RESP 18; O2SAT 98
--- NOTE | 2021-07-16 15:23 | EDS_ITS ---
HPI History of Present Illness Chief Complaint: Chest Pain Narrative Narrative: Patient presenting for evaluation secondary to chest pain, left arm pain. Patient has an underlying history of coronary artery disease she did have an ST elevation myocardial infarction in November resulting in stent. She has had multiple repeat catheterizations throughout the course of this year. Patient states that she basically has been persistently dealing with chest pain. Its continuous heaviness in her chest and her neck that radiates back between her shoulder blades. Patient has had multiple work-ups for this, that she actually is currently going down the GI pathway and is pending upper endoscopy. Patient was concerned because today her symptoms change somewhat to her being short of breath as well as having some left arm burning and pain. She does report that her chest pain is exertional but it has been exertional since it started back in November. She denies any infectious signs or symptoms such as fever. Patient states that she has been on a PPI that does not seem to help with her symptoms either. She denies numbness or weakness. She denies any nausea vomiting or diarrhea. She denies any skin rashes. Review of systems otherwise negative. [facility] Medical History Adverse drug reaction Anxiety disorder Atherosclerotic heart disease of [place] coronary artery without angina pectoris Bipolar affective disorder Borderline personality disorder Chest pain of uncertain etiology Chest pain, non-cardiac Chronic left-sided thoracic back pain COPD (chronic obstructive pulmonary disease) Depression Essential (primary) hypertension Former smoker GERD (gastroesophageal reflux disease) Headache History of ST elevation myocardial infarction (STEMI) (12/18/20) Ischemic cardiomyopathy Myocardial infarct Nicotine dependence 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) Shortness of breath Home Medications clopidogrel 75 mg tablet 75 mg PO DAILY #90 tablet 03/20/21 [Rx Last Taken 05/16/21 03:00] lamotrigine 25 mg tablet 50 mg PO DAILY 05/03/21 [History Last Taken 05/16/21 08:00] ondansetron 4 mg PO Q8H PRN 4 Days #10 tab 06/07/21 [Rx Last Taken Unknown] famotidine 40 mg tablet 40 mg PO DAILY 06/08/21 [History Last Taken Unknown] lorazepam [Ativan] 0.5 mg PO BID PRN 06/19/21 [History Last Taken Unknown] tramadol 100 mg PO Q8H PRN 3 Days #20 tab 06/22/21 [Rx Last Taken Unknown] aspirin 81 mg tablet,delayed release 81 mg PO QODAY 07/13/21 [History Last Taken Unknown] omeprazole 40 mg PO DAILY #14 cap 07/16/21 [Rx Last Taken Unknown] Allergy/AdvReac Type Severity Reaction Status Date / Time morphine Allergy Hives Verified 07/16/21 14:45 amlodipine AdvReac Intermediate chest Verified 07/16/21 14:45 pain and cannot breathe carvedilol [From Coreg] AdvReac Intermediate throat Verified 07/16/21 14:45 closing up and chest pressure citalopram [From Celexa] AdvReac NAUSEATED Verified 07/16/21 14:45 AND IRRITABLE lisinopril AdvReac SOB, chest Verified 07/16/21 14:45 tightness,throat closing venlafaxine [From Effexor] AdvReac DIDN'T Verified 07/16/21 14:45 WORK Family History Father CAD (coronary artery disease) Myocardial infarction Surgical History H/O section History of coronary artery stent placement (12/18/20) History of left heart catheterization (05/17/21) Social History household members: none Smoking Status: Former smoker quit date: 01/23/21 pack-years: 30 how long ago did patient quit smokin days ago alcohol intake: never substance use type: does not use caffeine: Yes Type: coffee Number of servings: 2 ROS ROS ED Constitutional Constitutional ED: Denies fever(s) Eyes Eyes: Denies change in vision ENT ENT ED: Denies rhinorrhea or sore throat Cardiovascular Cardiovascular: Reports as per HPI Respiratory/Chest Respiratory/Chest: Denies cough, dyspnea or dyspnea on exertion Gastrointestinal Gastrointestinal: Reports abdominal pain Genitourinary Genitourinary ED: Denies dysuria Musculoskeletal Musculoskeletal: Denies myalgias or neck pain Integumentary Denies rash Neurologic Neurologic: Denies headache(s), paresthesias or weakness Psychiatric Psychiatric: Denies depression Endocrine Endocrinology: Denies polydipsia or polyuria Hematologic/Lymphatic Hematologic/Lymphatic: Denies easy bleeding or easy bruising Allergic/Immunologic Allergic/Immunologic ED: Denies urticaria EXAM Physical Exam Const Vital Signs: 07/16/21 13:55 07/16/21 14:47 07/16/21 15:13 Temperature 97.0 F L Temperature Source Temporal Pulse Rate 77 75 66 Respiratory Rate 18 15 18 Respiratory Effort Non-Labored Short of Breath Respiratory Pattern Normal Blood Pressure 169/92 H 162/117 H 187/122 H Blood Pressure Mean 117 132 143 Pulse Ox 97 100 98 Oxygen Delivery Method Room Air Room Air Room Air Positive well nourished and well developed Constitutional Narrative: Very anxious appearing age-appropriate female no acute distress General Appearance ED: well developed and NAD HEENT Reports moist mucous membranes normocephalic and atraumatic Eyes EOMs intact bilaterally Neck no lymphadenopathy, supple and no JVD Chest Wall inspection of chest normal Chest Narrative: No evidence of vesicular rash Diffuse nonlocalizing tenderness Chest: tenderness Resp normal respiratory effort and clear to auscultation bilaterally Auscultation: Negative for rales, rhonchi or wheezes Cardio regular rate, regular rhythm, S1 normal heart sound, S2 normal heart sound and no murmurs Peripheral Pulses: radial pulses present and posterior tibial pulses present GI normal to inspection, nondistended, normoactive bowel sounds, soft to palpation and non-tender Extremity normal to inspection Extremity Narrative: Calves are supple no palpable cord General Extremety ED: Negative for edema or tenderness General Extremity: Negative for edema Neuro oriented x3 and no sensory deficits noted Sensorium / Orientation: awake and alert Psych mental status grossly normal Skin no rashes or lesions noted Heart Score History: Moderately Suspicious ECG: Normal Age: >45 - <65 years Risk Factors: >/= 3 Risk Factors or History of CAD Troponin: </= Normal Limit Score: 4 MDM MDM MDM Narrative Medical decision making narrative: Patient presented secondary to chest pain and abdominal pain. An EKG was obtained was found to be within normal limits. CBC, CMP, lipase, and high-sensitivity troponin also found to be unremarkable. Chest x-ray by my personal review as well as radiology show some hyperinflation no signs of acute pathology. Had discussion with the patient's, she does state that this also seems to be very associated with food and potentially this is associated with a GI type symptom. She is scheduled for a upper endoscopy in about a month, states that she has been on and off Prilosec, I will recommend that we put her back on Prilosec. She stated that she was told that her software performance engineer, Dr Lopez told her that he would approve her to go back on omeprazole despite it's relative cross-reactivity with plavix. Patient's heart score is a 4, but she has had multiple recent cardiac work-ups including catheterization in April so I do not think that repeat admission or further observation is necessary. Patient was discharged with reassurance. She was discharged in stable condition. Lab Data Labs: Laboratory Results - last 24 hr 07/16/21 07/16/21 15:20 15:20 WBC 5.1 RBC 4.48 Hgb 13.0 Hct 38.8 MCV 86.6 MCH 29.0 MCHC 33.5 RDW Std Deviation 41.3 RDW Coeff of Dona 13.1 Plt Count 252 MPV 10.4 Immature Gran % (Auto) 0.200 Neut % (Auto) 58.4 Lymph % (Auto) 34.5 Fannin % (Auto) 5.1 Eos % (Auto) 1.2 Baso % (Auto) 0.6 Absolute Neuts (auto) 3.0 Absolute Lymphs (auto) 1.77 Nucleated RBC % 0 Sodium 138 Potassium 3.6 Chloride 106 Carbon Dioxide 23.0 Anion Gap 9 BUN 11 Creatinine 0.60 Estim Creat Clear Calc 84.78 Est GFR (MDRD) Af Amer 135 Est GFR (MDRD) Non-Af 111 BUN/Creatinine Ratio 18.5 Glucose 88 Calcium 9.6 Total Bilirubin 0.50 AST 16 ALT 19 Alkaline Phosphatase 48 Troponin I High Sens 4 Total Protein 7.4 Albumin 3.8 Globulin 3.6 Albumin/Globulin Ratio 1.1 Lipase 104 Radiography Chest X-Ray - ED: 2 View, Read by ED Physician and No Acute Disease Diagnostic Testing: Radiology Impression Chest X-Ray 07/16/21 15:00 IMPRESSION: Pulmonary hyperinflation with no acute pulmonary abnormality. at 1605 Reported and signed by: Francis Schulz MD Electronically Signed: Francis Schulz MD at 16:04 EDT Tel , Service support , EKG Initial EKG: Attestation: I personally reviewed and interpreted this EKG as follows: (Sinus rhythm [address] segments normal T waves normal DC and QTc intervals no evidence of acute ischemia or arrhythmia) Discharge Plan Triage Chief Complaint: Chest Pain ED Provider: Phil Garcia Dx/Rx/DC Orders Clinical Impression: Chest pain Instructions: ED Chest Pain, Noncardiac Prescriptions: New omeprazole 40 mg capsule,delayed release(DR/EC) 40 mg PO DAILY Qty: 14 RF: 0 No Action famotidine [Pepcid] 40 mg tablet 40 mg PO DAILY RF: 0 clopidogrel [Plavix] 75 mg tablet 75 mg PO DAILY Qty: 90 RF: 3 lamotrigine [Lamictal] 25 mg tablet 50 mg PO DAILY RF: 0 aspirin [Adult Low Dose Aspirin] 81 mg tablet,delayed release (DR/EC) 81 mg PO QODAY RF: 0 ondansetron 4 mg tablet,disintegrating 4 mg PO Q8H PRN (Reason: nausea and vomiting) 4 Days Qty: 10 RF: 0 lorazepam [Ativan] 0.5 mg Tablet 0.5 mg PO BID PRN (Reason: Anxiety) RF: 0 tramadol 50 mg tablet 100 mg PO Q8H PRN (Reason: pain) 3 Days Qty: 20 RF: 0 Primary Care Provider: Ellis Crandall Referrals: Ellis Crandall MD [Primary Care Provider] - 3-5 Days Disposition Disposition: Home, Self Care
[2021-07-16 15:39] LABS: Absolute Lymphocyte Count 1.77 X10^3/uL (0.83-4.51); Basophil# 0.03 X10^3/uL; Basophil% 0.6 % (0-1); Eosinophil# 0.06 X10^3/uL; Eosinophils% 1.2 % (0-5); Hematocrit 38.8 % (37-47); Lymphocyte # 1.77 X10^3/ul (0.83-4.51); Lymphocyte % 34.5 % (19-41); Mean Corp Hgb Conc 33.5 g/dL (32-36); Mean Corpuscular Volume 86.6 fL (81-99); Mean Platelet Vol. 10.4 fl (6.2-12.0); Monocyte# 0.26 X10^3/uL; Monocyte% 5.1 % (0-10); NRBC Flagged by Analyzer 0 % (0-5); Neutrophil % 58.4 % (47-70); Platelet Count 252 K/mm3 (150-450); RBC Distribution Width CV 13.1 % (11.6-14.6); RBC Distribution Width SD 41.3 fl (35.1-43.9); Red Blood Count 4.48 M/mm3 (4.2-5.4); White Blood Count 5.1 K/mm3 (4.4-11.0)
[2021-07-16 15:53] LABS: ALB/GLOB Ratio 1.1 RATIO (0.9-2.4); AST(SGOT) 16 U/L (15-37); Alanine Aminotransfer ALT/SGPT 19 U/L (13-56); Albumin, Serum 3.8 g/dL (3.2-5.0); Alkaline Phosphatase 48 U/L (45-117); Anion Gap 9 (5-15); BUN 11 mg/dL (7-18); BUN/Creat Ratio 18.5 RATIO (10-20); Calcium,Total 9.6 mg/dL (8.5-10.1); Chloride 106 mmol/L (98-107); EST Glomerular Filtration Rate 111 mL/min (>60); Est Glom Filt Rate - Afr Amer 135 mL/min (>60); Estimated Creatinine Clearance 84.78 ml/min; Globulin 3.6 g/dL (2.2-4.2); Glucose 88 mg/dL (74-106); Lipase 104 U/L (73-393); Potassium 3.6 mmol/L (3.5-5.1); Protein, Total 7.4 g/dL (6.4-8.2); Sodium Level 138 mmol/L (136-145); Troponin-I HS 4 pg/mL (3.0-54.0)
[2021-07-16 16:35] VITALS: BP 185/99
== END 2021-07-16 16:36 | disposition home or self-care (01) ==
PROVIDERS: Emergency Provider Emergency Medicine; PCP Family Medicine
DX: R07.9 Chest pain, unspecified (principal); I25.10 Atherosclerotic heart disease of native coronary artery without angina pectoris; J44.9 Chronic obstructive pulmonary disease, unspecified; K21.9 Gastro-esophageal reflux disease without esophagitis; I25.2 Old myocardial infarction; F31.9 Bipolar disorder, unspecified; Z87.891 Personal history of nicotine dependence; Z95.5 Presence of coronary angioplasty implant and graft; Z79.82 Long term (current) use of aspirin; Z79.899 Other long term (current) drug therapy
CPT/HCPCS: 36415; 71046; 80053; 83690; 84484; 85025; 93005; 99283

== ENCOUNTER 2021-07-20 15:33 | Emergency (ER) | payer MEDICAID, SELFPAY ==
[2021-07-20 15:34] VITALS: BP 113/92; PULSE 86; RESP 18; TEMP 36.3; O2SAT 100; BMI 22.3
--- NOTE | 2021-07-20 16:27 | EKG12_ITS ---
Test Reason : CP Blood Pressure : / mmHG Vent. Rate : 064 BPM Atrial Rate : 064 BPM P-R Int : 148 ms QRS Dur : 094 ms QT Int : 400 ms P-R-T Axes : 064 068 064 degrees QTc Int : 412 ms Normal sinus rhythm Normal ECG Confirmed by GLEN KING, JOE ([id number]), industrial editor FILI CASTILLO ([id number]) on 07/24/2021 10:34:19 AM Referred By: NOE Confirmed By:JOE CARROLL MD
--- NOTE | 2021-07-20 17:34 | RAD_ITS ---
STUDY: X-RAY CHEST REASON FOR EXAM: Female, 55 years old. chest pain TECHNIQUE: Single AP portable view of the chest. COMPARISON: 07/16/2021. FINDINGS: The lungs are clear and expanded. There is no demonstrated pleural abnormality. Normal size heart. Normal mediastinum and kirsten. Normal visualized pulmonary arteries. Normal visualized aortic arch and descending thoracic aorta. Normal visualized thoracic spine. Normal visualized ribs, clavicles, and shoulders. There is no demonstrated abnormality of the visualized soft tissue structures of the upper abdomen. RAD/Chest 1 View (Portable) IMPRESSION: Normal x-ray examination of the chest. Electronically Signed: Ana Saleem MD at 18:30 EDT Tel , Service support ,
--- NOTE | 2021-07-20 17:36 | RAD_ITS ---
STUDY: X-RAY - LEFT SHOULDER REASON FOR EXAM: Female, 55 years old. pain TECHNIQUE: 4 view(s) of the shoulder. COMPARISON: None. FINDINGS: Normal glenohumeral articulation. Normal acromioclavicular joint. Normal acromion. Normal humeral head and visualized proximal humerus. The soft tissue structures are unremarkable. Normal visualized pulmonary apex. RAD/Shoulder min 2 Views IMPRESSION: Normal x-ray examination of the shoulder. Electronically Signed: Ana Saleem MD at 18:28 EDT Tel , Service support ,
--- NOTE | 2021-07-20 17:40 | RAD_ITS ---
STUDY: X-RAY - LEFT ELBOW REASON FOR EXAM: Female, 55 years old. pain TECHNIQUE: 2 view(s) of the elbow. COMPARISON: None. FINDINGS: No acute fracture or dislocation. No destructive bone changes. Joint spaces are well-maintained. Normal alignment. Soft tissues are unremarkable. No radiopaque foreign body or soft tissue gas. RAD/Elbow 2 Views IMPRESSION: Normal x-ray examination of the elbow. Electronically Signed: Ana Saleem MD at 18:29 EDT Tel , Service support ,
--- NOTE | 2021-07-20 17:41 | EX.ED.DYSGE1 ---
HPI History of Present Illness Chief Complaint: Chest Pain Narrative Narrative: Patient presents with left shoulder and left elbow pain. Chief complaints as chest pain but today she has no chest pain and she has not had chest pain a few days. She has chronic recurrent chest pain but she has had an CO about 8 months ago and she is usually worried about chest pain. Today she tells me she does not think she has any heart problems but is worried about her shoulder. She has no prior injury but it does hurt when she moves her shoulder and her arm. She has no chest pain shortness of breath no back pain no tearing sensation no pleuritic component. No recent fever or chills. [facility] Medical History Adverse drug reaction Anxiety disorder Atherosclerotic heart disease of [place] coronary artery without angina pectoris Bipolar affective disorder Borderline personality disorder Chest pain of uncertain etiology Chest pain, non-cardiac Chronic left-sided thoracic back pain COPD (chronic obstructive pulmonary disease) Depression Essential (primary) hypertension Former smoker GERD (gastroesophageal reflux disease) Headache History of ST elevation myocardial infarction (STEMI) (12/18/20) Ischemic cardiomyopathy Myocardial infarct Nicotine dependence 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) Shortness of breath Home Medications clopidogrel 75 mg tablet 75 mg PO DAILY #90 tablet 03/20/21 [Rx Last Taken 05/16/21 03:00] lamotrigine 25 mg tablet 50 mg PO DAILY 05/03/21 [History Last Taken 05/16/21 08:00] ondansetron 4 mg PO Q8H PRN 4 Days #10 tab 06/07/21 [Rx Last Taken Unknown] lorazepam [Ativan] 0.5 mg PO BID PRN 06/19/21 [History Last Taken Unknown] tramadol 100 mg PO Q8H PRN 3 Days #20 tab 06/22/21 [Rx Last Taken Unknown] aspirin 81 mg tablet,delayed release 81 mg PO QODAY 07/13/21 [History Last Taken Unknown] omeprazole 40 mg PO DAILY #14 cap 07/16/21 [Rx Last Taken Unknown] Allergy/AdvReac Type Severity Reaction Status Date / Time morphine Allergy Hives Verified 07/20/21 15:35 amlodipine AdvReac Intermediate chest Verified 07/20/21 15:35 pain and cannot breathe carvedilol [From Coreg] AdvReac Intermediate throat Verified 07/20/21 15:35 closing up and chest pressure citalopram [From Celexa] AdvReac NAUSEATED Verified 07/20/21 15:35 AND IRRITABLE lisinopril AdvReac SOB, chest Verified 07/20/21 15:35 tightness,throat closing venlafaxine [From Effexor] AdvReac DIDN'T Verified 07/20/21 15:35 WORK Family History Father CAD (coronary artery disease) Myocardial infarction Surgical History H/O section History of coronary artery stent placement (12/18/20) History of left heart catheterization (05/17/21) Social History household members: none Smoking Status: Former smoker quit date: 01/23/21 pack-years: 30 how long ago did patient quit smokin days ago alcohol intake: never substance use type: does not use caffeine: Yes Type: coffee Number of servings: 2 ROS ROS ED ROS Narrative Past medical history: Reviewed, includes COPD, history of CO, hypertension, hypercholesterolemia. Medications: Reviewed Social history: Continues to smoke Review of systems: All systems negative except as indicated General: No fever Eyes: No visual changes ENT: No upper airway congestion, normal voice Neck: No neck pain Cardiovascular: No current chest pain Respiratory: No shortness of breath or cough Gastrointestinal: No abdominal pain, nausea vomiting or diarrhea Genitourinary: No dysuria Musculoskeletal: Left shoulder, left elbow pain Skin: No rash Neurological: No memory loss, confusion or any focal weakness Psych: No recent behavioral changes Hematologic: No easy bleeding or easy bruising EXAM Physical Exam Narrative Exam Narrative: Physical exam General: Patient appears chronically ill. She does not appear acutely ill. S Head: Normocephalic, Atraumatic Eyes: Conjunctiva not pale ENT: Moist mucous membranes Neck: Supple, Nontender, No lymphadenopathy Cardiovascular: Regular rate, Regular rhythm Respiratory: No distress, coarse bilateral breath sounds. No wheezing. Abdomen: Soft, Nontender, Nondistended Back: Nontender, Normal Inspection. Negative for: CVA tenderness Extremities: Tenderness to palpation over the superior part of the left shoulder, also posterior arm in the trapezius region. She has no elbow pain and no pain to pronation or supination. Pain in the shoulder is worse when she abduction greater than 90 degrees or places her hand behind her back. Skin: Normal color, No rash Neurological: Alert, Normal Strength, Normal Sensation Psychological: Normal affect Const Vital Signs: 07/20/21 15:34 07/20/21 17:49 Temperature 97.3 F L Temperature Source Temporal Pulse Rate 86 67 Respiratory Rate 18 17 Respiratory Effort Normal Non-Labored Respiratory Pattern Normal Blood Pressure 113/92 H 136/102 H Blood Pressure Mean 99 113 Pulse Ox 100 100 Oxygen Delivery Method Room Air Room Air MDM MDM MDM Narrative Medical decision making narrative: My plan was to do a troponin as well as x-rays, her x-rays are unremarkable however patient eloped prior to the troponin. Radiography Diagnostic Testing: Radiology Impression Chest X-Ray 07/20/21 17:34 IMPRESSION: Normal x-ray examination of the chest. Electronically Signed: Ana Saleem MD at 18:30 EDT Tel , Service support , Shoulder X-Ray 07/20/21 17:36 IMPRESSION: Normal x-ray examination of the shoulder. Electronically Signed: Ana Saleem MD at 18:28 EDT Tel , Service support , Elbow X-Ray 07/20/21 17:40 IMPRESSION: Normal x-ray examination of the elbow. Electronically Signed: Ana Saleem MD at 18:29 EDT Tel , Service support , Discharge Plan Triage Chief Complaint: Chest Pain ED Provider: Ismael Moran Dx/Rx/DC Orders Clinical Impression: Acute shoulder pain, Eloped from emergency department Prescriptions: No Action clopidogrel [Plavix] 75 mg tablet 75 mg PO DAILY Qty: 90 RF: 3 lamotrigine [Lamictal] 25 mg tablet 50 mg PO DAILY RF: 0 aspirin [Adult Low Dose Aspirin] 81 mg tablet,delayed release (DR/EC) 81 mg PO QODAY RF: 0 ondansetron 4 mg tablet,disintegrating 4 mg PO Q8H PRN (Reason: nausea and vomiting) 4 Days Qty: 10 RF: 0 lorazepam [Ativan] 0.5 mg Tablet 0.5 mg PO BID PRN (Reason: Anxiety) RF: 0 tramadol 50 mg tablet 100 mg PO Q8H PRN (Reason: pain) 3 Days Qty: 20 RF: 0 omeprazole 40 mg capsule,delayed release(DR/EC) 40 mg PO DAILY Qty: 14 RF: 0 Primary Care Provider: Ellis Crandall Referrals: Ellis Crandall MD [Primary Care Provider] - Disposition Disposition: Elopement Discharge Date/Time: 07/20/21 18:19
[2021-07-20 17:49] VITALS: BP 136/102; PULSE 67; RESP 17; O2SAT 100
--- NOTE | 2021-07-20 18:17 | ED.RN ---
this RN went into room to get bloodwork on pt. pt was tearful, ripping off equipment and states she was just going to go home. This RN told pt to wait a few minute to gather AMA paperwork. Upon talking to Dr. Moran, and telling him pt wanted to leave without anything done he said she can elope. he did not agree with her leaving and that is why he did not want to do AMA paperwork.
== END 2021-07-20 18:20 | disposition left against medical advice (07) ==
LOC: ED 17:52
PROVIDERS: Emergency Provider Emergency Medicine; PCP Family Medicine
DX: M25.512 Pain in left shoulder (principal); J44.9 Chronic obstructive pulmonary disease, unspecified; I10 Essential (primary) hypertension; E78.00 Pure hypercholesterolemia, unspecified; I25.2 Old myocardial infarction; Z87.891 Personal history of nicotine dependence; Z95.5 Presence of coronary angioplasty implant and graft; I25.10 Atherosclerotic heart disease of native coronary artery without angina pectoris; K21.9 Gastro-esophageal reflux disease without esophagitis; F60.3 Borderline personality disorder; F31.9 Bipolar disorder, unspecified; Z79.82 Long term (current) use of aspirin
CPT/HCPCS: 71045; 73030; 73070; 93005; 99283

== ENCOUNTER 2021-07-30 14:27 | Emergency (ER) | payer MEDICAID, SELFPAY ==
[2021-07-30 14:28] VITALS: BP 154/108; PULSE 66; RESP 18; TEMP 36.6; O2SAT 100; BMI 23.8
--- NOTE | 2021-07-30 14:49 | ED.RN ---
WENT IN AND ASKED THE PT TO PUT A GOWN ON. PT STATED SHE DIDN'T WANT TO DO THE STUFF WE ALWAYS DO AND THE MORE SHE THINKS ABOUT IT SHE JUST WANTS TO GO HOME. PT STATES SHE HAS A ENDOSCOPY ON SAT AND FEELS THAT SHE NEEDS TO JUST WAIT FOR THAT. EXPLAINED TO PT WE CAN DO EKG'S AND CHECK HER HEART OUT AGAIN AND PT STATED SHE THINKS IT IS HER STOMACH. ALSO STATES SHE HAS A HEADACHE AND EXPLAINED WE COULD POSSIBLY GIVE HER SOMETHING FOR HER HEADACHE. PT WAS ADAMANT THAT NOTHING WE COULD GIVE HER WOULD HELP. STATES SHE DOESN'T WANT PAIN MEDS AND SHE THINKS SHE WOULD BE BETTER GOING HOME AND TAKING HER ATIVAN AND TRYING TO SLEEP. AGAIN ENCOURAGED PT TO ATLEAST TALK WITH THE DR BUT SHE REFUSED SAYING SHE WAS GOING HOME AND GOING TO TRY TRO SLEEP.
== END 2021-07-30 14:47 ==
LOC: ED 14:49
PROVIDERS: PCP Family Medicine
DX: R42 Dizziness and giddiness (principal)

== ENCOUNTER 2021-08-10 10:15 | Inpatient (IN) | payer MEDICAID, SELFPAY ==
[2021-08-10] VITALS (11 sets, daily range): BP systolic 138–173; BP diastolic 84–108; PULSE 62–80; RESP 11–18; TEMP 36.2–36.7; O2SAT 98–100; BMI 22.4; BMI 21.7
--- NOTE | 2021-08-10 10:34 | RAD_ITS ---
STUDY: X-RAY CHEST REASON FOR EXAM: Female, 56 years old. Chest pain TECHNIQUE: Single AP portable view of the chest. COMPARISON: Comparison is made with prior study 07/20/2021. FINDINGS: EKG electrodes are seen. Hyperinflation. The lungs are clear. There is no demonstrated pleural abnormality. Normal size heart. Normal mediastinum and kirsten. Normal visualized pulmonary arteries. Normal visualized aortic arch and descending thoracic aorta. Normal visualized thoracic spine. Normal visualized ribs, clavicles, and shoulders. There is no demonstrated abnormality of the visualized soft tissue structures of the upper abdomen. RAD/Chest 1 View (Portable) IMPRESSION: Hyperinflation. The lungs are clear. Electronically Signed: Darrell Wan MD at 10:51 EDT , Service support ,
--- NOTE | 2021-08-10 10:34 | EKG12_ITS ---
Test Reason : REPEAT Blood Pressure : / mmHG Vent. Rate : 063 BPM Atrial Rate : 063 BPM P-R Int : 154 ms QRS Dur : 096 ms QT Int : 462 ms P-R-T Axes : 057 066 056 degrees QTc Int : 472 ms Normal sinus rhythm Normal ECG Confirmed by GLEN KING, JOE ([id number]), photo editor FILI CASTILLO ([id number]) on 08/11/2021 1:09:05 PM Referred By: FREDERICK/JOHN Confirmed By:JOE CARROLL MD
--- NOTE | 2021-08-10 10:36 | ED.VIS.CHEST ---
HPI History of Present Illness Chief Complaint: Chest Pain Informant: patient Narrative Narrative: Presenting with increased chest heaviness this morning.'s been having intermittent on and off symptoms since her heart cath with stenting this past November. She had RCA stent. Record she recath back in January and April of this year. Improved cardiomyopathy. Patent stent. She does have also known diagonal first ostial lesion at 50%. She is taking her Plavix. She states currently being worked up to rule out GI issues with the upper endoscopy planned this coming Saturday by Dr. Schulz. She was placed on Prilosec however last 3 days has not taken it due to reporting it made her feel worse with throat swelling. Denies any rectal bleeding. Of note she was seen by myself a month ago today with the work-up, there was discussion with Imdur to be started. 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 There was discussions of Imdur only after GI rule out. She seen additionally 2 other times for chest pain since then with negative work-ups. She denies any cough. History of hypertension, COPD, cardiomyopathy, asthma Prior Similar Symptoms: Yes PFSH [facility] Medical History Adverse drug reaction Anxiety disorder Atherosclerotic heart disease of [place] coronary artery without angina pectoris Bipolar affective disorder Borderline personality disorder Chest pain of uncertain etiology Chest pain, non-cardiac Chronic left-sided thoracic back pain COPD (chronic obstructive pulmonary disease) Depression Essential (primary) hypertension Former smoker GERD (gastroesophageal reflux disease) Headache History of ST elevation myocardial infarction (STEMI) (12/18/20) Ischemic cardiomyopathy Myocardial infarct Nicotine dependence 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) Shortness of breath Home Medications lorazepam [Ativan] 0.5 mg PO BID PRN 06/19/21 [History Last Taken 1 Week Ago ~08/03/21] aspirin 81 mg tablet,delayed release 81 mg PO QODAY 07/13/21 [History Last Taken 08/07/21] clopidogrel [Plavix] 75 mg PO DAILY 08/10/21 [History Last Taken 08/09/21] famotidine 40 mg PO DAILY 08/10/21 [History Last Taken 1 Week Ago ~08/03/21] lamotrigine 50 - 100 mg PO DAILY 08/10/21 [History Last Taken 1 Week Ago ~08/03/21] omeprazole 40 mg PO DAILY 08/10/21 [History Last Taken 1 Week Ago ~08/03/21] Allergy/AdvReac Type Severity Reaction Status Date / Time morphine Allergy Hives Verified 08/10/21 10:21 amlodipine AdvReac Intermediate chest Verified 08/10/21 10:21 pain and cannot breathe carvedilol [From Coreg] AdvReac Intermediate throat Verified 08/10/21 10:21 closing up and chest pressure citalopram [From Celexa] AdvReac NAUSEATED Verified 08/10/21 10:21 AND IRRITABLE lisinopril AdvReac SOB, chest Verified 08/10/21 10:21 tightness,throat closing venlafaxine [From Effexor] AdvReac DIDN'T Verified 08/10/21 10:21 WORK Family History Father CAD (coronary artery disease) Myocardial infarction Surgical History H/O section History of coronary artery stent placement (12/18/20) History of left heart catheterization (05/17/21) Social History household members: none Smoking Status: Former smoker quit date: 01/23/21 pack-years: 30 how long ago did patient quit smokin days ago alcohol intake: never substance use type: does not use caffeine: Yes Type: coffee Number of servings: 2 ROS ROS ED Constitutional Constitutional ED: Denies chills, fever(s) or sweats Eyes Eyes: Denies change in vision ENT ENT ED: Denies dysphagia or sore throat Cardiovascular Cardiovascular: Reports chest pain; Denies leg edema, palpitations or racing heartbeat Respiratory/Chest Respiratory/Chest: Denies cough, dyspnea or dyspnea on exertion Gastrointestinal Gastrointestinal: Denies abdominal pain, diarrhea, nausea or vomiting Genitourinary Genitourinary ED: Denies dysuria, hematuria or urinary frequency Musculoskeletal Musculoskeletal: Denies back pain, extremity pain or neck pain Integumentary Denies rash or wounds Neurologic Neurologic: Denies headache(s), paresthesias or weakness EXAM Physical Exam Const Vital Signs: 08/10/21 10:16 08/10/21 10:55 08/10/21 11:15 Temperature 98.1 F Temperature Source Temporal Pulse Rate 79 62 Respiratory Rate 18 18 Respiratory Effort Normal Blood Pressure 173/108 H Blood Pressure Mean 129 Pulse Ox 100 99 Oxygen Delivery Method Room Air Room Air 08/10/21 12:23 08/10/21 13:00 08/10/21 14:21 Temperature Temperature Source Pulse Rate 66 66 80 Respiratory Rate 16 13 17 Respiratory Effort Blood Pressure 152/95 H Blood Pressure Mean 114 Pulse Ox 98 99 100 Oxygen Delivery Method Room Air Room Air Room Air Positive well nourished and well developed General Appearance ED: well developed and NAD HEENT Reports moist mucous membranes normocephalic and atraumatic Eyes PERRL, EOMs intact bilaterally and conjunctivae normal General Eye ED: Yes normal appearance of both eyes Neck no lymphadenopathy and supple General: Negative for tenderness Chest Wall Chest: Negative for tenderness Resp normal respiratory effort and normal air movement Effort and Inspection: symmetric chest movement; Negative for respiratory distress Cardio regular rate, regular rhythm and no murmurs Peripheral Pulses: pulses 2+ throughout GI normal to inspection, nondistended, normoactive bowel sounds and non-tender Palpation: Negative for guarding or rebound tenderness present Back/Spine no CVA tenderness and no thoracic nor lumbar tenderness Extremity normal to inspection General Extremety ED: Negative for edema or tenderness General Extremity: Negative for edema Neuro oriented x3 and no sensory deficits noted Sensorium / Orientation: awake and alert Skin no rashes or lesions noted and no wounds Heart Score History: Moderately Suspicious ECG: Normal Age: >45 - <65 years Risk Factors: >/= 3 Risk Factors or History of CAD Troponin: >/=3 x Normal Limit Score: 6 MDM MDM MDM Narrative Medical decision making narrative: Patient presenting with increasing similar chest pains in the past. Multiple similar symptoms from previously. She took her Plavix today, she has been holding her aspirin due to upcoming endoscopy. I order for nitroglycerin however she declined this stating gives her headaches. EKG was normal first set of labs normal except for potassium 3.3. Troponin at 19. Reevaluation continue to have symptoms however did not want opiates for pain treatment and still declined her nitroglycerin. Repeat troponin at 2 hours elevated at 810. patient was given aspirin due to elevated troponin Heparin drip was started. This was resent down to recheck continue to be elevated up at 1170. After heparin started, symptoms significantly subsided. I did speak with Dr. Muñiz, cardiology who came down to see the patient. He reviewed patient's cardiac catheterization, states small vessel disease from the diagonal first branch. He recommended medical management at this time continuing aspirin and Plavix along with a heparin drip. He recommended trending troponin and echocardiogram. He states if continues to elevate with abnormal echo he will plan to cath in the hospital. I relayed this to hospitalist Dr. Macdonald for admission. Lab Data Attestation: I reviewed the patient's lab results. Labs: Laboratory Results - last 24 hr 08/10/21 08/10/21 08/10/21 10:25 10:25 12:55 WBC 6.5 RBC 5.04 Hgb 14.6 Hct 44.5 MCV 88.3 MCH 29.0 MCHC 32.8 RDW Std Deviation 41.9 RDW Coeff of Dona 12.9 Plt Count 300 MPV 10.2 Immature Gran % (Auto) 0.200 Neut % (Auto) 37.4 L Lymph % (Auto) 51.8 H [place] % (Auto) 7.8 Eos % (Auto) 2.0 Baso % (Auto) 0.8 Absolute Neuts (auto) 2.5 Absolute Lymphs (auto) 3.39 Nucleated RBC % 0 PT INR APTT Sodium 139 Potassium 3.3 L Chloride 106 Carbon Dioxide 28.0 Anion Gap 5 BUN 11 Creatinine 0.67 Estim Creat Clear Calc 75.04 Est GFR (MDRD) Af Amer 117 Est GFR (MDRD) Non-Af 96 BUN/Creatinine Ratio 16.3 Glucose 97 Calcium 9.5 Troponin I High Sens 19 810 H* 08/10/21 08/10/21 13:39 14:15 WBC RBC Hgb Hct MCV MCH MCHC RDW Std Deviation RDW Coeff of Dona Plt Count MPV Immature Gran % (Auto) Neut % (Auto) Lymph % (Auto) [place] % (Auto) Eos % (Auto) Baso % (Auto) Absolute Neuts (auto) Absolute Lymphs (auto) Nucleated RBC % PT 13.1 INR 1.1 APTT 34.6 Sodium Potassium Chloride Carbon Dioxide Anion Gap BUN Creatinine Estim Creat Clear Calc Est GFR (MDRD) Af Amer Est GFR (MDRD) Non-Af BUN/Creatinine Ratio Glucose Calcium Troponin I High Sens 1170 H* Radiography Chest X-Ray - ED: 1 View, Read by ED Physician and Read by Radiologist Diagnostic Testing: Radiology Impression Chest X-Ray 08/10/21 10:34 IMPRESSION: Hyperinflation. The lungs are clear. Electronically Signed: Darrell Wan MD at 10:51 EDT , Service support , EKG Initial EKG: Attestation: I personally reviewed and interpreted this EKG as follows: Comments: Sinus rate of 67, no ST or T wave changes. Follow-up EKG: Attestation: I personally reviewed and interpreted this EKG as follows: Interpretation: Sinus Rhythm Comments: At 1348: Unchanged from first EKG Critical Care Time Critical Care Time: Yes Critical care time (excluding procedures): Discussing w/Patient &/or Family/General Merchandise Manager, Discussing w/Consultants, Arranging Admission or Transfer, Performing Direct Patient Care at Bedside and - (45 minutes) Discharge Plan Dx/Rx/DC Orders Clinical Impression: Non-ST elevation GA (NSTEMI), Chest pain Disposition Disposition: Acute Care Hospital [facility] Discharge Date/Time: 08/10/21 16:30
[2021-08-10 10:44] LABS: Absolute Lymphocyte Count 3.39 X10^3/uL (0.83-4.51); Absolute Neutrophil Count 2.5 X10^3/uL (2.0-7.7); Basophil# 0.05 X10^3/uL; Basophil% 0.8 % (0-1); Eosinophil# 0.13 X10^3/uL; Hematocrit 44.5 % (37-47); Hemoglobin 14.6 g/dL (12.0-15.0); Lymphocyte # 3.39 X10^3/ul (0.83-4.51); Lymphocyte % 51.8 % (19-41); Mean Corp Hgb Conc 32.8 g/dL (32-36); Mean Corpuscular Volume 88.3 fL (81-99); Mean Platelet Vol. 10.2 fl (6.2-12.0); Monocyte# 0.51 X10^3/uL; Monocyte% 7.8 % (0-10); NRBC Flagged by Analyzer 0 % (0-5); Neutrophil # 2.45 X10^3/uL (2.7-7.7); Neutrophil % 37.4 % (47-70); Platelet Count 300 K/mm3 (150-450); RBC Distribution Width CV 12.9 % (11.6-14.6); RBC Distribution Width SD 41.9 fl (35.1-43.9); Red Blood Count 5.04 M/mm3 (4.2-5.4); White Blood Count 6.5 K/mm3 (4.4-11.0)
[2021-08-10 11:03] LABS: Anion Gap 5 (5-15); BUN 11 mg/dL (7-18); BUN/Creat Ratio 16.3 RATIO (10-20); Calcium,Total 9.5 mg/dL (8.5-10.1); Chloride 106 mmol/L (98-107); Creatinine, Serum 0.67 mg/dL (0.55-1.02); EST Glomerular Filtration Rate 96 mL/min (>60); Est Glom Filt Rate - Afr Amer 117 mL/min (>60); Estimated Creatinine Clearance 75.04 ml/min; Glucose 97 mg/dL (74-106); Potassium 3.3 mmol/L (3.5-5.1); Sodium Level 139 mmol/L (136-145); Troponin-I HS 19 pg/mL (3.0-54.0)
--- NOTE | 2021-08-10 11:15 | ED.RN ---
PT REFUSING NITRO AT THIS TIME,
[2021-08-10 13:31] LABS: Troponin-I HS 810 pg/mL (3.0-54.0)
--- NOTE | 2021-08-10 13:42 | EKG12_ITS ---
Test Reason : CP Blood Pressure : / mmHG Vent. Rate : 067 BPM Atrial Rate : 067 BPM P-R Int : 138 ms QRS Dur : 096 ms QT Int : 418 ms P-R-T Axes : 063 062 057 degrees QTc Int : 441 ms Normal sinus rhythm Normal ECG Confirmed by GLEN KING, JOE ([id number]), scientific editor FILI CASTILLO ([id number]) on 08/11/2021 1:09:17 PM Referred By: JOHN/AJAY Confirmed By:JOE CARROLL MD
[2021-08-10 14:08] LABS: Troponin-I HS 1170 pg/mL (3.0-54.0)
[2021-08-10] MEDS: Aspirin 81 MG TAB.CHEW 324 MG PO (14:22)
[2021-08-10] MEDS: Heparin Injection (Vial) 5,000 UNIT/ML VIAL 4000 UNIT IV (14:22)
[2021-08-10] MEDS: HEPARIN/D5w 25,000 UNITS 25,000 UNITS/250 ML IV.SOLN. 8 UNITS IV (14:25)
[2021-08-10 14:44] LABS: International Normalized Ratio 1.1; Prothrombin Time (Protime)PT. 13.1 SECONDS (11.7-14.9)
[2021-08-10 14:45] LABS: Partial Thromboplast Time 34.6 Seconds (24.1-36.2)
--- NOTE | 2021-08-10 15:05 | PCM.HP.STD ---
HPI - General HPI Narrative SJ MOHAN, is a 56 F who presents with chest pain. Patient's chest pain was left-sided. Stated similar to when she was here in the hospital back in April but much more severe at this time. States that it radiates to her back. Patient's troponins have gone from - 110-1170. Patient was started on heparin drip and cardiology was contacted. Patient had a normal cardiac cath back in April. 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) Shortness of breath Home Medications clopidogrel 75 mg tablet 75 mg PO DAILY #90 tablet 03/20/21 [Rx Last Taken 05/16/21 03:00] lamotrigine 25 mg tablet 50 mg PO DAILY 05/03/21 [History Last Taken 05/16/21 08:00] ondansetron 4 mg PO Q8H PRN 4 Days #10 tab 06/07/21 [Rx Last Taken Unknown] lorazepam [Ativan] 0.5 mg PO BID PRN 06/19/21 [History Last Taken Unknown] tramadol 100 mg PO Q8H PRN 3 Days #20 tab 06/22/21 [Rx Last Taken Unknown] aspirin 81 mg tablet,delayed release 81 mg PO QODAY 07/13/21 [History Last Taken Unknown] omeprazole 40 mg PO DAILY #14 cap 07/16/21 [Rx Last Taken Unknown] Allergy/AdvReac Type Severity Reaction Status Date / Time morphine Allergy Hives Verified 08/10/21 10:21 amlodipine AdvReac Intermediate chest Verified 08/10/21 10:21 pain and cannot breathe carvedilol [From Coreg] AdvReac Intermediate throat Verified 08/10/21 10:21 closing up and chest pressure citalopram [From Celexa] AdvReac NAUSEATED Verified 09/16/21 10:21 AND IRRITABLE lisinopril AdvReac SOB, chest Verified 08/10/21 10:21 tightness,throat closing venlafaxine [From Effexor] AdvReac DIDN'T Verified 08/10/21 10:21 WORK Family History Father CAD (coronary artery disease) Myocardial infarction Surgical History H/O section History of coronary artery stent placement (12/18/20) History of left heart catheterization (05/17/21) Social History household members: none Smoking Status: Former smoker quit date: 01/23/21 pack-years: 30 how long ago did patient quit smokin days ago alcohol intake: never substance use type: does not use caffeine: Yes Type: coffee Number of servings: 2 ROS ROS Narrative Chest pain, back pain. Shortness of breath. ROS Vital Signs Vital Signs Vital Signs: 08/10/21 10:16 08/10/21 10:55 08/10/21 11:15 Temperature 36.7 C Temperature Source Temporal Pulse Rate 79 62 Respiratory Rate 18 18 Respiratory Effort Normal Blood Pressure 173/108 H Blood Pressure Mean 129 Pulse Ox 100 99 Oxygen Delivery Method Room Air Room Air 08/10/21 12:23 08/10/21 13:00 08/10/21 14:21 Temperature Temperature Source Pulse Rate 66 66 80 Respiratory Rate 16 13 17 Respiratory Effort Blood Pressure 152/95 H Blood Pressure Mean 114 Pulse Ox 98 99 100 Oxygen Delivery Method Room Air Room Air Room Air Weight Weight: 55.656 kg Body Mass Index (BMI) 22.4 Physical Exam Const alert Constitutional Narrative: Appears older than stated age. Afebrile. Eyes PERRL Resp normal respiratory effort, no retractions, no use of accessory muscles and clear to auscultation bilaterally Cardio regular rate, regular rhythm, S1 normal heart sound and S2 normal heart sound GI normal to inspection, nondistended, normoactive bowel sounds, soft to palpation, non-tender and non-distended Extremity normal to inspection and no clubbing, cyanosis or edema Skin no rashes or lesions noted Neuro Sensorium / Orientation: awake and alert Results Lab / Micro Data Result Diagrams: 08/10/21 10:25 08/10/21 10:25 Labs: Laboratory Results - last 24 hr 08/10/21 10:25: WBC 6.5, RBC 5.04, Hgb 14.6, Hct 44.5, MCV 88.3, MCH 29.0, MCHC 32.8, RDW Std Deviation 41.9, RDW Coeff of Dona 12.9, Plt Count 300, MPV 10.2, Immature Gran % (Auto) 0.200, Neut % (Auto) 37.4 L, Lymph % (Auto) 51.8 H, [place] % (Auto) 7.8, Eos % (Auto) 2.0, Baso % (Auto) 0.8, Absolute Neuts (auto) 2.5, Absolute Lymphs (auto) 3.39, Nucleated RBC % 0 08/10/21 10:25: Sodium 139, Potassium 3.3 L, Chloride 106, Carbon Dioxide 28.0, Anion Gap 5, BUN 11, Creatinine 0.67, Estim Creat Clear Calc 75.04, Est GFR (MDRD) Af Amer 117, Est GFR (MDRD) Non-Af 96, BUN/Creatinine Ratio 16.3, Glucose 97, Calcium 9.5, Troponin I High Sens 19 08/10/21 12:55: Troponin I High Sens 810 H* 08/10/21 13:39: Troponin I High Sens 1170 H* 08/10/21 14:15: PT 13.1, INR 1.1, APTT 34.6 Micro: Microbiology 08/10/21 14:15 Nasal Secretion SARS-CoV-2 Antigen (Rapid) - Final EKG Initial EKG: Attestation: I personally reviewed and interpreted this EKG as follows: Prior EKG tracings: available for review EKG Rhythm Intrepretation: Sinus Rhythm Radiology Impression Chest X-Ray 08/10/21 10:34 IMPRESSION: Hyperinflation. The lungs are clear. Electronically Signed: Darrell Wan MD at 10:51 EDT , Service support , Assessment & Plan Assessment/Plan (1) NSTEMI, initial episode of care: PLAN: 1. Non-ST elevation myocardial infarction Patient's troponins have steadily gone up during her hospitalization thus far. Patient has been started on heparin drip through the emergency room Given the severity and the quality being different from previous, things worthwhile ruling out a dissection. Check CT angiogram of the chest Patient did have a normal cardiac cath back on May 17 in which she had an EF of 60%, normal LV wall motion, normal LV systolic function, normal left main, no significant disease in the LAD, 50% stenosis of the ostial vessel patent stent in the right coronary artery. Plan: Continue with aspirin, clopidogrel, heparin drip. Said she still having ongoing chest pain will add nitroglycerin. Check CT angiogram of the chest to evaluate for dissection or pulmonary embolism. Cardiology on consultation. Check urine drug screen to evaluate for any potentiating drugs that may cause vasospasm such as cocaine. Patient denies any illicit drug use. 2. VTE prophylaxis: Anticoagulation. 3. CODE STATUS: Addressed the patient. Patient wishes to be full code. 4. Patient still does not want the COVID-19 vaccine. Charges/Coding Visit Charges Inpatient E&M: 28350 Init Hosp L2
--- NOTE | 2021-08-10 15:06 | CT_ITS ---
STUDY: CTA CHEST REASON FOR EXAM: Female, 56 years old. Chest pain. History of COPD. RADIATION DOSAGE (If Supplied By Facility): CTDIvol = ( 5.03 ) mGy, DLP = ( 141.49 ) mGycm TECHNIQUE: The examination was performed with the intravenous administration of IV 75mL [id number]-370. Post-processing of the angiographic images was performed, with multiplanar reformation and 3D reconstruction. Individualized dose optimization techniques were used for this CT. COMPARISON: Comparison is made with prior study dated 03/12/2021. FINDINGS: Normal enhancement of the main pulmonary artery and right and left pulmonary arteries. Normal enhancement of the bilateral peripheral pulmonary arteries. There is no demonstrated pulmonary embolism. Normal thoracic aorta and visualized great vessels. There is no demonstrated aortic dissection. Normal heart and pericardium. Normal mediastinum. Normal hilar regions. Normal visualized trachea and bronchi. Hyperinflation. Diffuse emphysematous changes with evidence of centrilobular emphysema more prominent in the upper lobes. No pulmonary infiltrate or nodular density is seen. Normal pulmonary parenchyma. Normal pleura. Normal chest wall structures. There are degenerative changes of thoracic spine. Stable hepatic cysts. CT/CTA Chest W/WO Contrast IMPRESSION: Hyperinflation and emphysematous changes. No evidence of pulmonary embolism. Electronically Signed: Darrell aWn MD at 15:57 EDT , Service support ,
--- NOTE | 2021-08-10 16:23 | ECHOD_ITS ---
Reason For Study: NSTEMI Procedure This was a 2D Doppler, Color Flow transthoracic echocardiogram. Exam performed portable in patient room. Left Ventricle Normal LV size. The estimated ejection fraction is 35 %. Moderately severe segmental systolic dysfunction (see wall motion). Stage 1 diastolic dysfunction. There are regional wall motion abnormalities as specified. Mid-anteroseptal : Severely Hypokinetic. Mid-Anterior : Hypokinetic. [place] : Severely Hypokinetic. Right Ventricle Normal RV size. Normal systolic function. Tricuspid Valve Normal tricuspid valve. Mild tricuspid valve insufficiency. Aortic Valve Normal aortic valve. Pulmonic Valve Normal pulmonic valve. Great Vessels Normal aortic root. The pulmonary artery is normal size. Normal inferior vena cava. Pericardium/Pleural No pericardial effusion. MMode/2D Measurements & Calculations Ao root diam: 2.2 cm LAV(MOD-bp): 22.9 ml LVAd ap4: 23.6 cm2 LAV(MOD-bp) Indexed: 15.0 ml/m2 LVLd ap4: 7.5 cm LAV(MOD-sp2): 23.2 ml EDV(MOD-sp4): 61.4 ml LAV(MOD-sp4): 20.7 ml EDV(sp4-el): 63.2 ml LVAs ap4: 15.7 cm2 LVLs ap4: 6.3 cm ESV(MOD-sp4): 32.4 ml ESV(sp4-el): 33.6 ml EF(MOD-sp4): 47.2 % EF(sp4-el): 46.8 % SV(MOD-sp4): 29.0 ml SV(MOD-sp2): 25.7 ml LVAd ap2: 21.9 cm2 LVLd ap2: 7.1 cm EDV(MOD-sp2): 55.4 ml EDV(sp2-el): 57.5 ml LVAs ap2: 15.7 cm2 LVLs ap2: 6.8 cm ESV(MOD-sp2): 29.7 ml ESV(sp2-el): 30.9 ml EF(MOD-sp2): 46.3 % SV(sp4-el): 29.6 ml LA A4 area: 9.9 cm2 LA dimension(2D): 2.4 cm RA A4 area: 9.2 cm2 Doppler Measurements & Calculations MV E max paolo: 53.2 cm/sec Lat Peak E' Paolo: 7.2 cm/sec Med Peak E' Paolo: 4.7 cm/sec MV A max paolo: 66.9 cm/sec E/E' lat: 7.4 E/E' med: 11.3 MV E/A: 0.79 Ao V2 max: 129.3 cm/sec LV V1 max: 74.3 cm/sec PA V2 max: 93.2 cm/sec Ao max P.7 mmHg LV V1 max P.2 mmHg TR max paolo: 196.3 cm/sec TR max P.4 mmHg ECHO/Echo Complete Interpretation Summary Normal LV size. The estimated ejection fraction is 35 %. Moderately severe segmental systolic dysfunction (see wall motion). Stage 1 diastolic dysfunction. Compared to previous study, the left ventricular systolic function has worsened .. Ordering Physician: Sincere Macdonald Referring Physician: DAVID KELLEY Performed By: Kaylee Hyman, CYNDICS, RVT
[2021-08-10 16:26] LABS: Amphetamine Urine VISTA NEGATIVE (<1000 ng/mL); Barbiturate Urine VISTA NEGATIVE (< 200 ng/mL); Benzodiazepine Urine VISTA NEGATIVE (< 200 ng/mL); Cocaine Urine VISTA NEGATIVE (< 300 ng/mL); Ecstacy Urine VISTA NEGATIVE (< 500 ng/mL); Methadone Urine VISTA NEGATIVE (< 300 ng/mL); PCP Urine VISTA NEGATIVE (< 25 ng/mL); THC Urine VISTA NEGATIVE (< 50 ng/mL); Vista UDS pH Range 7
--- NOTE | 2021-08-10 16:55 | CON.PCM.CA_ITS ---
Documented by User: PEACE Louis 08/10/21 17:39 Assessment & Plan Assessment/Plan (1) Non-ST elevation VA (NSTEMI): (2) Atherosclerotic heart disease of inupiat coronary artery without angina pectoris: QUALIFIERS: [place] vs. transplanted heart: inupiat heart Qualified Code(s): I25.10 - Atherosclerotic heart disease of inupiat coronary artery without angina pectoris (3) Ischemic cardiomyopathy: (4) Essential (primary) hypertension: PLAN: * Troponins have increased * Will start patient on a heparin drip. * Will resume her aspirin, she will continue with her Plavix * We will repeat echocardiogram to reevaluate LV function. If her LV function has decreased we will then consider another heart catheterization * Patient has been tried on multiple medications however feel that she would benefit from an antianginal. Would like to try short acting Cardizem. HPI Consult Data Date of Consult: 08/10/21 HPI Narrative HPI Narrative: This is a 56-year-old female that presents to [facility] emergency room for chest discomfort. She notes that she had increased pain chest heaviness but awoke this morning and it was significant enough to bring her back to the emergency room. High sensitivity troponins initially was 810, second 1 was 1170. She has had previous high-sensitivity troponins that were negative. Because of her elevated troponin she is admitted for a non- STEMI. While patient was in the emergency room it was noted that she did have ST depression while she was upset. Patient does have a history of coronary artery disease post acute ST elevated myocardial infarction involving the wall with a drug-eluting stent to proximal RCA in November 2020. At that time she was also noted to have an ischemic cardiomyopathy. This is since resolved. Patient has undergone a heart catheterization in November where she was stented, repeat heart catheterization in January and repeat heart catheterization in April 2021. Heart catheterization in April demonstrated an ejection fraction of 60%. Left main angiographically normal. LAD no significant disease, diagonal 1 ostial 50% stenosis, circumflex no significant disease, RCA was patent. Patient has been intolerant to multiple cardiac medications. Patient was also in the process of being worked up from a GI standpoint for her burning in her stomach. She has not stopped her Plavix however she did stop her aspirin 3 days ago for an upcoming endoscopy that is scheduled on Saturday at [facility]. [facility] Medical History Adverse drug reaction Anxiety disorder Atherosclerotic heart disease of inupiat coronary artery without angina pectoris Bipolar affective disorder Borderline personality disorder Chest pain of uncertain etiology Chest pain, non-cardiac Chronic left-sided thoracic back pain COPD (chronic obstructive pulmonary disease) Depression Essential (primary) hypertension Former smoker GERD (gastroesophageal reflux disease) Headache History of ST elevation myocardial infarction (STEMI) (12/18/20) Ischemic cardiomyopathy Myocardial infarct Nicotine dependence 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) Shortness of breath Home Medications lorazepam [Ativan] 0.5 mg PO BID PRN 06/19/21 [History Last Taken 1 Week Ago ~08/03/21] aspirin 81 mg tablet,delayed release 81 mg PO QODAY 07/13/21 [History Last Taken 08/07/21] clopidogrel [Plavix] 75 mg PO DAILY 08/10/21 [History Last Taken 08/09/21] famotidine 40 mg PO DAILY 08/10/21 [History Last Taken 1 Week Ago ~08/03/21] lamotrigine 50 - 100 mg PO DAILY 08/10/21 [History Last Taken 1 Week Ago ~08/03/21] omeprazole 40 mg PO DAILY 08/10/21 [History Last Taken 1 Week Ago ~08/03/21] Allergy/AdvReac Type Severity Reaction Status Date / Time morphine Allergy Hives Verified 08/10/21 10:21 amlodipine AdvReac Intermediate chest Verified 08/10/21 10:21 pain and cannot breathe carvedilol [From Coreg] AdvReac Intermediate throat Verified 08/10/21 10:21 closing up and chest pressure citalopram [From Celexa] AdvReac NAUSEATED Verified 08/10/21 10:21 AND IRRITABLE lisinopril AdvReac SOB, chest Verified 08/10/21 10:21 tightness,throat closing venlafaxine [From Effexor] AdvReac DIDN'T Verified 08/10/21 10:21 WORK Family History Father CAD (coronary artery disease) Myocardial infarction Surgical History H/O section History of coronary artery stent placement (12/18/20) History of left heart catheterization (05/17/21) Social History household members: none Smoking Status: Former smoker quit date: 01/23/21 pack-years: 30 how long ago did patient quit smokin days ago alcohol intake: never substance use type: does not use caffeine: Yes Type: coffee Number of servings: 2 ROS Constitutional Constitutional: Reports body ache(s) Eyes Eyes: Reports systems reviewed and no addt'l complaints, except as documented ENT HEENT: Reports systems reviewed and no addt'l complaints, except as documented Cardiovascular Cardiovascular: Reports as per HPI Respiratory/Chest Respiratory/Chest: Reports systems reviewed and no addt'l complaints, except as documented Gastrointestinal Gastrointestinal: Reports abdominal pain, anorexia and heartburn Musculoskeletal Musculoskeletal: Reports systems reviewed and no addt'l complaints, except as documented Physical Exam Const alert, oriented x3 and average body habitus Constitutional Narrative: Very anxious and tearful HEENT normocephalic and head/scalp atraumatic Nose: external nose normal Throat: posterior oropharynx normal Eyes PERRL, EOMs intact bilaterally, conjunctivae normal and no scleral icterus Resp normal respiratory effort, no use of accessory muscles and clear to auscultation bilaterally Cardio regular rate, regular rhythm, S1 normal heart sound, S2 normal heart sound, no murmurs, no rub, no gallops, no clicks, no JVD and peripheral pulses 2+ throughout GI normal to inspection, nondistended, normoactive bowel sounds and soft to palpation Extremity no clubbing, cyanosis or edema and no pedal edema Neuro oriented x3, CN's II-XII intact bilaterally, moves all extremities and no focal motor deficits Charges/Coding Visit Charges Office Visits / Consults: [id number] IP Consult L5 Objective Data Vital Signs: Vital Signs Temp Pulse Resp BP Pulse Ox 97.7 F L 79 18 148/94 H 98 08/10/21 16:09 08/10/21 16:09 08/10/21 16:09 08/10/21 16:09 08/10/21 16:09 Oxygen Delivery Method Room Air Weight: 122 lb 11.2 oz Body Mass Index (BMI) 22.4 Lab / Micro Data Result Diagrams: 08/10/21 16:59 08/10/21 10:25 Labs: Laboratory Results - last 24 hr 08/10/21 10:25: WBC 6.5, RBC 5.04, Hgb 14.6, Hct 44.5, MCV 88.3, MCH 29.0, MCHC 32.8, RDW Std Deviation 41.9, RDW Coeff of Dona 12.9, Plt Count 300, MPV 10.2, Immature Gran % (Auto) 0.200, Neut % (Auto) 37.4 L, Lymph % (Auto) 51.8 H, Rincon % (Auto) 7.8, Eos % (Auto) 2.0, Baso % (Auto) 0.8, Absolute Neuts (auto) 2.5, Absolute Lymphs (auto) 3.39, Nucleated RBC % 0 08/10/21 10:25: Sodium 139, Potassium 3.3 L, Chloride 106, Carbon Dioxide 28.0, Anion Gap 5, BUN 11, Creatinine 0.67, Estim Creat Clear Calc 75.04, Est GFR (MDRD) Af Amer 117, Est GFR (MDRD) Non-Af 96, BUN/Creatinine Ratio 16.3, Glucose 97, Calcium 9.5, Troponin I High Sens 19 08/10/21 12:55: Troponin I High Sens 810 H* 08/10/21 13:39: Troponin I High Sens 1170 H* 08/10/21 14:15: PT 13.1, INR 1.1, APTT 34.6 08/10/21 16:05: Urine Opiates Screen NEGATIVE, Urine Methadone Screen NEGATIVE, Ur Barbiturates Screen NEGATIVE, Ur Phencyclidine Scrn NEGATIVE, Ur Amphetamines Screen NEGATIVE, U Methamphetamin-MDMA NEGATIVE, U Benzodiazepines Scrn NEGATIVE, Urine Cocaine Screen NEGATIVE, U Cannabinoids Screen NEGATIVE, Ur Drug Screen Comment Micro: Microbiology 08/10/21 14:15 Nasal Secretion SARS-CoV-2 Antigen (Rapid) - Final Cardiology Labs/Tests 08/10/21 10:25: WBC 6.5, RBC 5.04, Hgb 14.6, Hct 44.5, MCV 88.3, MCH 29.0, MCHC 32.8, Plt Count 300, MPV 10.2, Immature Gran % (Auto) 0.200, Neut % (Auto) 37.4 L, Lymph % (Auto) 51.8 H, Rincon % (Auto) 7.8, Eos % (Auto) 2.0, Baso % (Auto) 0.8, Absolute Neuts (auto) 2.5, Nucleated RBC % 0 08/10/21 10:25: Sodium 139, Potassium 3.3 L, Chloride 106, Carbon Dioxide 28.0, Anion Gap 5, BUN 11, Creatinine 0.67, Est GFR (MDRD) Af Amer 117, Est GFR (MDRD) Non-Af 96, BUN/Creatinine Ratio 16.3, Glucose 97, Calcium 9.5 08/10/21 14:15: PT 13.1, INR 1.1, APTT 34.6 Radiography Diagnostic Testing: Radiology Impression Chest X-Ray 08/10/21 10:34 IMPRESSION: Hyperinflation. The lungs are clear. Electronically Signed: Darrell Wan MD at 10:51 EDT , Service support , Chest CTA 08/10/21 15:06 IMPRESSION: Hyperinflation and emphysematous changes. No evidence of pulmonary embolism. Electronically Signed: Darrell Wan MD at 15:57 EDT , Service support , Documented by User: Dr. Torito Muñiz MD 08/10/21 17:51 Assessment & Plan Assessment/Plan (1) Non-ST elevation VA (NSTEMI): (2) Chest pain: (3) Asthma-COPD overlap syndrome: (4) GERD (gastroesophageal reflux disease): (5) History of coronary artery stent placement: (6) Old inferior wall myocardial infarction: PLAN: This patient with CAD/non-ST elevation VA Presented with symptoms of chest pain None history of prior PCI and stent of RCA. Review of the current medication and discuss cardiac care plan with the patient and the medical team I agree with the current documentation and plan of care as dictated by the mid level Cardiac mentation and plan; 1. Treat patient with dual antiplatelet therapy, heparin, nitro as needed. We will keep n.p.o. from midnight 2. Noted patient has prior to cardiac catheterization post previous VA which showed patency of the RCA stent with no obstructive atherosclerosis 3. As she has significant elevation of cardiac biomarkers/troponin I high sensitive with recommend to evaluate further with cardiac catheterization. To assess patency of the RCA stent and evaluate for progression of CAD Echocardiogram to evaluate LV systolic function HPI Consult Data Date of Consult: 08/10/21 HPI Narrative Reason for Consultation: CAD/NSTEMI [facility] Medical History Adverse drug reaction Anxiety disorder Atherosclerotic heart disease of inupiat coronary artery without angina pectoris Bipolar affective disorder Borderline personality disorder Chest pain of uncertain etiology Chest pain, non-cardiac Chronic left-sided thoracic back pain COPD (chronic obstructive pulmonary disease) Depression Essential (primary) hypertension Former smoker GERD (gastroesophageal reflux disease) Headache History of ST elevation myocardial infarction (STEMI) (12/18/20) Ischemic cardiomyopathy Myocardial infarct Nicotine dependence 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) Shortness of breath Home Medications lorazepam [Ativan] 0.5 mg PO BID PRN 06/19/21 [History Last Taken 1 Week Ago ~08/03/21] aspirin 81 mg tablet,delayed release 81 mg PO QODAY 07/13/21 [History Last Taken 08/07/21] clopidogrel [Plavix] 75 mg PO DAILY 08/10/21 [History Last Taken 08/09/21] famotidine 40 mg PO DAILY 08/10/21 [History Last Taken 1 Week Ago ~08/03/21] lamotrigine 50 - 100 mg PO DAILY 08/10/21 [History Last Taken 1 Week Ago ~08/03/21] omeprazole 40 mg PO DAILY 08/10/21 [History Last Taken 1 Week Ago ~08/03/21] Allergy/AdvReac Type Severity Reaction Status Date / Time morphine Allergy Hives Verified 08/10/21 10:21 amlodipine AdvReac Intermediate chest Verified 08/10/21 10:21 pain and cannot breathe carvedilol [From Coreg] AdvReac Intermediate throat Verified 08/10/21 10:21 closing up and chest pressure citalopram [From Celexa] AdvReac NAUSEATED Verified 08/10/21 10:21 AND IRRITABLE lisinopril AdvReac SOB, chest Verified 08/10/21 10:21 tightness,throat closing venlafaxine [From Effexor] AdvReac DIDN'T Verified 08/10/21 10:21 WORK Family History Father CAD (coronary artery disease) Myocardial infarction Surgical History H/O section History of coronary artery stent placement (12/18/20) History of left heart catheterization (05/17/21) Social History household members: none Smoking Status: Former smoker quit date: 01/23/21 pack-years: 30 how long ago did patient quit smokin days ago alcohol intake: never substance use type: does not use caffeine: Yes Type: coffee Number of servings: 2 Physical Exam Narrative This patient seen and treated at bedside along with the midlevel, and ER physician and the ER department She is alert orientated Have symptoms of chest pain on presentation manuscripts curator showed underlying normal sinus Cardiac examination; S1-S2 regular, there is no murmur no systolic or diastolic murmur, no pericardial rub and no gallop rhythm Chest examination clear to auscultation bilateral. Examination lower extremity no clubbing no cyanosis no lower extremity edema. Central nervous system exam no focal neurological deficit. Lab / Micro Data Result Diagrams: 08/10/21 16:59 08/10/21 10:25
--- NOTE | 2021-08-10 16:58 | EKG12_ITS ---
Test Reason : AM EKG Blood Pressure : / mmHG Vent. Rate : 070 BPM Atrial Rate : 070 BPM P-R Int : 148 ms QRS Dur : 086 ms QT Int : 420 ms P-R-T Axes : 067 068 059 degrees QTc Int : 453 ms Normal sinus rhythm ST & T wave abnormality, consider anterolateral ischemia Abnormal ECG When compared with ECG of 10-AUG-2021 18:28, MANUAL COMPARISON REQUIRED, DATA IS UNCONFIRMED Confirmed by JORJE KING, LEONIDES ([id number]), script editor FILI CASTILLO ([id number]) on 08/14/2021 10:28:41 AM Referred By: SOO Confirmed By:LEONIDES RECINOS MD
[2021-08-10 17:10] LABS: Hematocrit 41.3 % (37-47); Mean Corp Hgb Conc 33.9 g/dL (32-36); Mean Corpuscular Hgb 29.2 pg (27.0-32.0); Mean Platelet Vol. 10.5 fl (6.2-12.0); Platelet Count 268 K/mm3 (150-450)
[2021-08-10 18:10] LABS: ALB/GLOB Ratio 0.9 RATIO (0.9-2.4); AST(SGOT) 17 U/L (15-37); Alanine Aminotransfer ALT/SGPT 19 U/L (13-56); Albumin, Serum 3.7 g/dL (3.2-5.0); Alkaline Phosphatase 54 U/L (45-117); Anion Gap 7 (5-15); BUN 9 mg/dL (7-18); BUN/Creat Ratio 16.6 RATIO (10-20); Calcium,Total 9.1 mg/dL (8.5-10.1); Chloride 108 mmol/L (98-107); Creatinine, Serum 0.54 mg/dL (0.55-1.02); EST Glomerular Filtration Rate 124 mL/min (>60); Est Glom Filt Rate - Afr Amer 150 mL/min (>60); Glucose 99 mg/dL (74-106); Potassium 3.6 mmol/L (3.5-5.1); Protein, Total 7.7 g/dL (6.4-8.2); Sodium Level 138 mmol/L (136-145); Troponin-I HS 2267 pg/mL (3.0-54.0)
[2021-08-10] MEDS: Ondansetron 4 MG/2 ML Vial IV (18:51)
[2021-08-10] MEDS: 0.9% Saline Lock 10 ML Syringe IV (18:53)
[2021-08-10] MEDS: Potassium Chloride Oral Tablet 20 MEQ 40 MEQ PO (18:54)
[2021-08-10 20:23] LABS: Hematocrit 42.1 % (37-47); Hemoglobin 13.6 g/dL (12.0-15.0); Mean Corp Hgb Conc 32.3 g/dL (32-36); Mean Corpuscular Hgb 28.8 pg (27.0-32.0); Mean Platelet Vol. 10.5 fl (6.2-12.0); Platelet Count 259 K/mm3 (150-450); RBC Distribution Width CV 12.9 % (11.6-14.6); RBC Distribution Width SD 42.6 fl (35.1-43.9); Red Blood Count 4.73 M/mm3 (4.2-5.4); White Blood Count 7.1 K/mm3 (4.4-11.0)
[2021-08-10] MEDS: dilTIAZem 60 MG Tablet PO (20:45)
[2021-08-10] MEDS: Clopidogrel Bisulfate 75 MG Tablet PO (20:45)
[2021-08-10] MEDS: Nitroglycerin Oint 1 INCH PACKET TD (20:45)
[2021-08-10 20:48] LABS: Partial Thromboplast Time 222.6 Seconds (24.1-36.2)
--- NOTE | 2021-08-10 22:50 | PCS.PANDOC ---
PANDEMIC DOCUMENTATION INITIATED: Date: 07/10/2021 Time: 190
[2021-08-10 22:56] LABS: Troponin-I HS 2065 pg/mL (3.0-54.0)
[2021-08-10] MEDS: Acetaminophen 325 MG Tablet 650 MG PO (23:13)
[2021-08-11] VITALS (12 sets, daily range): BP systolic 96–128; BP diastolic 58–90; PULSE 64–88; RESP 15–18; TEMP 36.5–36.8; O2SAT 96–100
[2021-08-11 04:14] LABS: Partial Thromboplast Time 45.9 Seconds (24.1-36.2)
[2021-08-11 04:25] LABS: Cholesterol 256 mg/dL (200); High Density Lipoprotein 65 mg/dL; Triglycerides 97 mg/dL; Very Low Density Lipoprotein 19 mg/dL (5-40)
[2021-08-11] MEDS: Ondansetron ODT 4 MG Tablet PO (04:35)
[2021-08-11] MEDS: Heparin Injection (Vial) 5,000 UNIT/ML VIAL IV (04:36)
--- NOTE | 2021-08-11 05:00 | EKG12_ITS ---
Test Reason : CP Blood Pressure : / mmHG Vent. Rate : 061 BPM Atrial Rate : 061 BPM P-R Int : 148 ms QRS Dur : 096 ms QT Int : 446 ms P-R-T Axes : 066 073 069 degrees QTc Int : 448 ms Normal sinus rhythm Nonspecific ST and T wave abnormality Abnormal ECG When compared with ECG of 10-AUG-2021 10:35, MANUAL COMPARISON REQUIRED, DATA IS UNCONFIRMED Confirmed by JORJE KING, LEONIDES ([id number]), online editor FILI CASTILLO ([id number]) on 08/14/2021 10:28:52 AM Referred By: SOO Confirmed By:LEONIDES RECINOS MD
--- NOTE | 2021-08-11 09:22 | CASEMGMT ---
According to the [facility] website, the following are in-network tertiary facilities: [facility], [facility], [facility], [facility], [facility], [facility], [place], [facility], and . Darcy PRIETO CM
[2021-08-11 10:36] LABS: Partial Thromboplast Time 33.7 Seconds (24.1-36.2)
[2021-08-11] MEDS: Aspirin E.C. 81 MG Tablet PO (10:54)
[2021-08-11] MEDS: dilTIAZem 60 MG Tablet PO (10:54)
--- NOTE | 2021-08-11 10:59 | NURSING ---
Report called to Jose Angel r and d lab technician RN
--- NOTE | 2021-08-11 12:24 | CL.D_ITS ---
Patient Name: SJ MOHAN Study Date: 08/11/2021 Performing: Tc Lopez MD Ht: 61.81 inches 157 cm : 1965 Wt: 119.05 lbs 54 kg Age: 56 Gender: female BSA: 1.53 PROCEDURE(S) PERFORMED [id number]/LV CLINICAL PROFILE AND INDICATIONS Indications: Worsening Angina Heart Failure: None Stress/Imaging Stress/Image Study Performed: No CAD Presentations: Unstable angina. CONCLUSIONS Non obstructive coronary arteries RECOMMENDATIONS Medical therapy [place] CMP DESCRIPTION OF PROCEDURE The patient arrived to the procedure lab. The risks and benefits of the procedure as well as a full d escription of our services here and current unavailability of surgical backup were fully explained to the patient and/or their significant other prior to the catheterization. The Timeout was completed, verifying the correct patient and procedure. The patient's procedural site was prepped and draped in the usual fashion. Local anesthetic was given subcutaneously to right radial region with Lidocaine 2% . Using a modified Seldinger technique, arterial access was obtained via the right radial artery, a 6 Fr sheath was inserted. Left Coronary Artery selective angiography was performed in multiple views u sing a 5 Fr. 4.0 Carleton catheter. Right Coronary Artery selective angiography was then performed in mu ltiple views using a 5 Fr. 4.0 Carleton catheter. Left Ventriculography was performed in SANTOS projection using a 5 Fr. Pigtail catheter. LV to AO pullback pressures were then recorded.The arterial sheath was pulled and a TR Band was applied for hemostasis. Reynaldo flushed prior to removal. 10cc air inserted. CORONARY ANGIOGRAPHY DOMINANCE: Right Dominant LEFT HEART ASSESSMENT Left Ventricular Ejection Fraction: by LV Gram 35 % Depressed Left Ventricular systolic function Consistent with Takotsubo cardiomyopathy. LEFT MAIN: No significant disease noted LEFT ANTERIOR DESCENDING ARTERY: Mild luminal irregularities less than 30% DIAGONAL 1: Ostial - 80 % Stenosis CIRCUMFLEX ARTERY: MID CIRC: Moderate luminal irregularities up to 50% OM 1: Proximal - Mild luminal irregularities RIGHT CORONARY ARTERY: PROX RCA: Previously placed stent is patent COMPLICATIONS No Complications PROCEDURE MEDICATIONS Fentanyl 50 mcg IV Versed 1 mg IV Versed 1 mg IV Oxygen: 2 L/min via nasal cannula Heparin given IA 08/11/2021 12:02:04 Plavix 75 mg PO 08/11/2021 11:32:25 Verapamil 2.5mg, Ntg 100mcgs, 3000 units of Heparin given IA 08/11/2021 12:02:04 IV Bolus: .9 NaCl 250 ml total 08/11/2021 12:17:32 SUMMARY OF HEMODYNAMIC DATA Time AIR REST ECG 11:31:03 AO 81/58 (69) SA 12:06:31 LV 95/-1, 2 12:11:23 LV 98/0, 1 12:11:29 LV 95/0, 1 12:11:38 LV 79/2, 6 12:12:25 LVp 89/1, 4 12:12:34 AOp 93/33 (55) 12:12:39 12:22:29 Signed By Tc Lopez MD On 08/11/2021 12:24:04 Tc Lopez MD
--- NOTE | 2021-08-11 12:44 | PN.CARD_ITS ---
Subjective Subjective Patient seen and evaluated. Appears to be well. Objective Data Vital Signs: Vital Signs Temp Pulse Resp BP Pulse Ox 97.7 F L 77 16 106/71 98 08/11/21 12:35 08/11/21 12:35 08/11/21 12:35 08/11/21 12:35 08/11/21 12:35 Oxygen Delivery Method Room Air Weight: 118 lb 9.739 oz Body Mass Index (BMI) 21.7 Intake & Output: Intake and Output for Last 24 Hours 08/09/21 08/10/21 08/11/21 23:59 23:59 23:59 Intake Total 52.13 / 52.13 47.62 / 47.62 Balance 52.13 / 52.13 47.62 / 47.62 Lab / Micro Data Result Diagrams: 08/10/21 20:13 08/10/21 16:59 Labs: Laboratory Results - last 24 hr 08/10/21 12:55: Troponin I High Sens 810 H* 08/10/21 13:39: Troponin I High Sens 1170 H* 08/10/21 14:15: PT 13.1, INR 1.1, APTT 34.6 08/10/21 16:05: Urine Opiates Screen NEGATIVE, Urine Methadone Screen NEGATIVE, Ur Barbiturates Screen NEGATIVE, Ur Phencyclidine Scrn NEGATIVE, Ur Amphetamines Screen NEGATIVE, U Methamphetamin-MDMA NEGATIVE, U Benzodiazepines Scrn NEGATIVE, Urine Cocaine Screen NEGATIVE, U Cannabinoids Screen NEGATIVE, Ur Drug Screen Comment 08/10/21 16:59: WBC 7.0, RBC 4.80, Hgb 14.0, Hct 41.3, MCV 86.0, MCH 29.2, MCHC 33.9, RDW Std Deviation 41.0, RDW Coeff of Dona 13.0, Plt Count 268, MPV 10.5 08/10/21 16:59: Sodium 138, Potassium 3.6, Chloride 108 H, Carbon Dioxide 23.0, Anion Gap 7, BUN 9, Creatinine 0.54 L, Estim Creat Clear Calc 93.10, Est GFR (MDRD) Af Amer 150, Est GFR (MDRD) Non-Af 124, BUN/Creatinine Ratio 16.6, Glucose 99, Calcium 9.1, Total Bilirubin 0.50, AST 17, ALT 19, Alkaline Phosphatase 54, Troponin I High Sens 2267 H*, Total Protein 7.7, Albumin 3.7, Globulin 4.0, Albumin/Globulin Ratio 0.9 08/10/21 20:13: WBC 7.1, RBC 4.73, Hgb 13.6, Hct 42.1, MCV 89.0, MCH 28.8, MCHC 32.3, RDW Std Deviation 42.6, RDW Coeff of Dona 12.9, Plt Count 259, MPV 10.5 08/10/21 20:15: APTT 222.6 H* 08/10/21 22:20: Troponin I High Sens 2065 H* 08/11/21 03:30: Triglycerides 97, Cholesterol 256 H, LDL Cholesterol 172 H, VLDL Cholesterol 19, HDL Cholesterol 65 08/11/21 03:30: APTT 45.9 H 08/11/21 10:07: APTT 33.7 Micro: Microbiology 08/10/21 14:15 Nasal Secretion SARS-CoV-2 Antigen (Rapid) - Final Cardiology Labs/Tests 08/10/21 14:15: PT 13.1, INR 1.1, APTT 34.6 08/10/21 16:59: WBC 7.0, RBC 4.80, Hgb 14.0, Hct 41.3, MCV 86.0, MCH 29.2, MCHC 33.9, Plt Count 268, MPV 10.5 08/10/21 16:59: Sodium 138, Potassium 3.6, Chloride 108 H, Carbon Dioxide 23.0, Anion Gap 7, BUN 9, Creatinine 0.54 L, Est GFR (MDRD) Af Amer 150, Est GFR (MDRD) Non-Af 124, BUN/Creatinine Ratio 16.6, Glucose 99, Calcium 9.1, Total Bilirubin 0.50 08/10/21 20:13: WBC 7.1, RBC 4.73, Hgb 13.6, Hct 42.1, MCV 89.0, MCH 28.8, MCHC 32.3, Plt Count 259, MPV 10.5 08/10/21 20:15: APTT 222.6 H* 08/11/21 03:30: Triglycerides 97, Cholesterol 256 H, LDL Cholesterol 172 H, VLDL Cholesterol 19, HDL Cholesterol 65 08/11/21 03:30: APTT 45.9 H 08/11/21 10:07: APTT 33.7 Rhythm: EKG: ECHO: Stress Test: Cardiac Cath: PCI: CT Surgery: Holter monitor: EPS: PPM: CXR: Chest CT Scan: Radiography Diagnostic Testing: Radiology Impression Chest CTA 08/10/21 15:06 IMPRESSION: Hyperinflation and emphysematous changes. No evidence of pulmonary embolism. Electronically Signed: Darrell Wan MD at 15:57 EDT , Service support , Physical Exam Const alert, oriented x3 and no apparent distress General Appearance: cooperative HEENT hearing grossly normal bilaterally Head and Scalp: atraumatic Eyes EOMs intact bilaterally Neck General: normal visual inspection Chest inspection of chest normal and palpation of chest normal Resp normal respiratory effort Auscultation: clear to auscultation bilaterally Cardio regular rate, regular rhythm, S1 normal heart sound and S2 normal heart sound Jugular Venous Distention: JVD GI normal to inspection, nondistended, normoactive bowel sounds Extremity normal capillary refill and no pedal edema Peripheral Pulses: Yes pulses 2+ throughout and femoral pulses present Skin no rashes or lesions noted Neuro oriented x3 and CN's II-XII intact bilaterally Psych Appearance: grossly normal and appropriate Assessment & Plan Assessment/Plan (1) Non-ST elevation AR (NSTEMI): PLAN: She does have non-ST elevation myocardial infarction by cardiac enzymes. She underwent a cardiac catheterization today which demonstrated patency of the stent in the right coronary artery and moderate disease noted in the first diagonal vessel. There was mild diffuse disease. Her left ventricular systolic dysfunction was out of proportion to the coronary artery disease with apical ballooning consistent with Takotsubo cardiomyopathy. I suspect the above is precipitated by all his stress in her life as well as her GI issues. * I would recommend that we continue with her current medical therapy with no other changes. * She can probably be discharged later today
[2021-08-11] MEDS: 0.9% Normal Saline 1,000 ML 75 ML IV (13:09)
--- NOTE | 2021-08-11 13:24 | CASEMGMT ---
IDA LOW Assessment: Face to face with patient for initial transition planning/care coordination assessment. IDA LOW introduced self and role at [facility], voices understanding. Care providers, pharmacy, and demographics verified. PCP: [facility] Specialists: Angeli Shin NP (Gastroenterology); [facility] (cardiology); Psychiatrist (DENNIS [facility]) Preferred Pharmacy: [facility] Insurance: [facility] Prescription Benefit: Yes Living Will/HPOA: No, pt is not interested in completing at this time. LNOK: Son Denilson Asif Living arrangements: Pt lives with her son and her three granddaughters in a two story home with 5 steps to enter and up to 15 steps between the floors. Pt reports her oldest granddaughter to be a great support to her and states when this granddaughter turns 18 she will make her HPOA. ADLs: Pt states she has been independent with ADLs. Transportation: Pt states she drives and her granddaughter can drive her if needed. DME/HHC: Pt denies using any DME or previous use of post-acute SNF or HH providers. Pt denies any current discharge needs including DME or post-acute providers including HH or SNF. Discharge Plan: Return home with support of family. Will continue to monitor and assist as needs are identified. Gio Valles RN CM
--- NOTE | 2021-08-11 13:46 | PCM.DC ---
Discharge Instructions Diet Discharge Diet: No restrictions Dressing / Incision Call your doctor if you observe: Fever of 101 or Higher Follow Up Care Test Results: Test results from this visit will be discussed in further detail at your follow-up appointment, if applicable. Discharge Plan Admission Admit Date/Time: 08/10/21 14:55 Primary Reason for Your Visit: chest pain Attending Provider: Sincere Macdonald Primary Care Provider: Ellis Crandall Consulting Providers: Torito Muñiz Instructions Patient Instructions: ED Chest Pain, Noncardiac Discharge Orders/Prescriptions Prescriptions: New acetaminophen [Tylenol] 325 mg Tablet 650 mg PO Q6H PRN PRN (Reason: Pain Score 1-10/Temp > 100.7 F) Qty: 0 RF: 0 diltiazem HCl 60 mg Tablet 60 mg PO BID Qty: 60 RF: 0 Continued aspirin [Adult Low Dose Aspirin] 81 mg tablet,delayed release (DR/EC) 81 mg PO QODAY RF: 0 lorazepam [Ativan] 0.5 mg Tablet 0.5 mg PO BID PRN (Reason: Anxiety) RF: 0 famotidine 40 mg tablet 40 mg PO DAILY RF: 0 lamotrigine 100 mg tablet 50 - 100 mg PO DAILY RF: 0 clopidogrel [Plavix] 75 mg tablet 75 mg PO DAILY RF: 0 omeprazole 40 mg capsule,delayed release(DR/EC) 40 mg PO DAILY RF: 0 Referrals / Follow Up: Ellis Crandall MD [Primary Care Provider] - Within 2 Weeks Disposition Disposition (needs filled in before D/C Order can be placed): Home, Self Care
--- NOTE | 2021-08-11 13:51 | NURSING ---
Patient refused Lamotrigine and Protonix states I don't want to take any meds they upset my stomach. I will take what I need once I get home.
--- NOTE | 2021-08-11 13:52 | DS.PCM_ITS ---
Providers Date of Admission: 08/10/21 Primary Care Physician: Dr. David Kelley MD Consultations 08/10/21 16:58 Consult: Cardiology Routine Consulting Provider: Torito Muñiz Reason for Consult: nstemi EMERGENT Consult: No MD Notified: Yes Date Notified: 08/10/21 Time Notified: 14:57 Method of Notification: Verbal Reason For Visit: CHEST PAIN Diagnosis Discharge Diagnosis (1) Non-ST elevation TN (NSTEMI): Status: Acute Code(s): I21.4 - Non-ST elevation (NSTEMI) myocardial infarction Medications at Discharge Home Medications lorazepam [Ativan] 0.5 mg PO BID PRN 06/19/21 aspirin 81 mg tablet,delayed release 81 mg PO QODAY 07/13/21 clopidogrel [Plavix] 75 mg PO DAILY 08/10/21 famotidine 40 mg PO DAILY 08/10/21 lamotrigine 50 - 100 mg PO DAILY 08/10/21 omeprazole 40 mg PO DAILY 08/10/21 acetaminophen [Tylenol] 650 mg PO Q6H PRN PRN #0 tab 08/11/21 diltiazem HCl 60 mg PO BID #60 tab 08/11/21 Hospital Course Procedures 2-D Echocardiogram and Cardiac catheterization Summary of Care Provided Minutes Spent on Discharge: 26 Hospital Course: 56-year-old female presents with chest pain. Patient had sudden onset of left-sided chest pain that went to her back. Patient underwent CT angiogram of her chest that was unremarkable. Patient underwent echocardiogram that showed an EF of 35%. Given the change in her LV, decision was made to do a cardiac catheterization. Cardiac catheterization showed some minimal irregularities in LAD 50% stenosis in the ostial diagonal. Patient had LV changes consistent with Takotsubo cardiomyopathy. Patient was started on diltiazem. Patient will be discharged to follow-up with cardiology. Physical Exam Const alert Resp normal respiratory effort, no use of accessory muscles and clear to auscultation bilaterally Cardio regular rate, regular rhythm, S1 normal heart sound and S2 normal heart sound GI normal to inspection, nondistended, normoactive bowel sounds, soft to palpation and non-tender Weight / BMI Weight Weight: 53.8 kg Body Mass Index (BMI) 21.7 ABG / Lab / Microbiology Data Result Diagrams: 08/10/21 20:13 08/10/21 16:59 Laboratory: Laboratory Results - last 24 hr 08/10/21 13:39: Troponin I High Sens 1170 H* 08/10/21 14:15: PT 13.1, INR 1.1, APTT 34.6 08/10/21 16:05: Urine Opiates Screen NEGATIVE, Urine Methadone Screen NEGATIVE, Ur Barbiturates Screen NEGATIVE, Ur Phencyclidine Scrn NEGATIVE, Ur Amphetamines Screen NEGATIVE, U Methamphetamin-MDMA NEGATIVE, U Benzodiazepines Scrn NEGATIVE, Urine Cocaine Screen NEGATIVE, U Cannabinoids Screen NEGATIVE, Ur Drug Screen Comment 08/10/21 16:59: WBC 7.0, RBC 4.80, Hgb 14.0, Hct 41.3, MCV 86.0, MCH 29.2, MCHC 33.9, RDW Std Deviation 41.0, RDW Coeff of Dona 13.0, Plt Count 268, MPV 10.5 08/10/21 16:59: Sodium 138, Potassium 3.6, Chloride 108 H, Carbon Dioxide 23.0, Anion Gap 7, BUN 9, Creatinine 0.54 L, Estim Creat Clear Calc 93.10, Est GFR (MDRD) Af Amer 150, Est GFR (MDRD) Non-Af 124, BUN/Creatinine Ratio 16.6, Glucose 99, Calcium 9.1, Total Bilirubin 0.50, AST 17, ALT 19, Alkaline Phosphatase 54, Troponin I High Sens 2267 H*, Total Protein 7.7, Albumin 3.7, Globulin 4.0, Albumin/Globulin Ratio 0.9 08/10/21 20:13: WBC 7.1, RBC 4.73, Hgb 13.6, Hct 42.1, MCV 89.0, MCH 28.8, MCHC 32.3, RDW Std Deviation 42.6, RDW Coeff of Dona 12.9, Plt Count 259, MPV 10.5 08/10/21 20:15: APTT 222.6 H* 08/10/21 22:20: Troponin I High Sens 2065 H* 08/11/21 03:30: Triglycerides 97, Cholesterol 256 H, LDL Cholesterol 172 H, VLDL Cholesterol 19, HDL Cholesterol 65 08/11/21 03:30: APTT 45.9 H 08/11/21 10:07: APTT 33.7 Microbiology: Microbiology 08/10/21 14:15 Nasal Secretion SARS-CoV-2 Antigen (Rapid) - Final Radiography Diagnostic Testing: Radiology Impression Chest CTA 08/10/21 15:06 IMPRESSION: Hyperinflation and emphysematous changes. No evidence of pulmonary embolism. Electronically Signed: Darrell Wan MD at 15:57 EDT , Service support , Echocardiogram 08/10/21 16:23 Interpretation Summary Normal LV size. The estimated ejection fraction is 35 %. Moderately severe segmental systolic dysfunction (see wall motion). Stage 1 diastolic dysfunction. Compared to previous study, the left ventricular systolic function has worsened.. Ordering Physician: Sincere Macdonald Referring Physician: DAVID KELLEY Performed By: Kaylee Hyman RDCS, RVT D/C Instructions Discharge Diet: No restrictions Call your doctor if you observe: Fever of 101 or Higher Meaningful Use Info Meaningful Use Diagnoses (Choose all that apply): AMI AMI/Post PCI/Angioplasty Aspirin given w/in 24hrs of arrival?: Yes ASA at discharge?: Yes Antiplatelet Therapy at Discharge:: Yes Statins at discharge?: No Reason statins not ordered:: Allergy Zheng/ARB at discharge?: No Reason Zheng/ARB not ordered:: Allergy Beta Shay at discharge?: No Reason Beta Shay not ordered:: Hypotension Done w/ Acute TN measure.: Yes Documented LVEF (%): 35 Discharge Plan Admission Admit Date/Time: 08/10/21 14:55 Primary Reason for Your Visit: chest pain Attending Provider: Sincere Macdonald Primary Care Provider: David Kelley Consulting Providers: Torito Muñiz Instructions Patient Instructions: ED Chest Pain, Noncardiac Discharge Orders/Prescriptions Prescriptions: New acetaminophen [Tylenol] 325 mg Tablet 650 mg PO Q6H PRN PRN (Reason: Pain Score 1-10/Temp > 100.7 F) Qty: 0 RF: 0 diltiazem HCl 60 mg Tablet 60 mg PO BID Qty: 60 RF: 0 Continued aspirin [Adult Low Dose Aspirin] 81 mg tablet,delayed release (DR/EC) 81 mg PO QODAY RF: 0 lorazepam [Ativan] 0.5 mg Tablet 0.5 mg PO BID PRN (Reason: Anxiety) RF: 0 famotidine 40 mg tablet 40 mg PO DAILY RF: 0 lamotrigine 100 mg tablet 50 - 100 mg PO DAILY RF: 0 clopidogrel [Plavix] 75 mg tablet 75 mg PO DAILY RF: 0 omeprazole 40 mg capsule,delayed release(DR/EC) 40 mg PO DAILY RF: 0 Referrals / Follow Up: Tc Lopez MD [STAFF PHYSICIAN] - Within 1 Month David Kelley MD [Primary Care Provider] - Within 2 Weeks Disposition Disposition (needs filled in before D/C Order can be placed): Home, Self Care Charges/Coding Visit Charges Inpatient E&M: 98618 Disch Hosp
--- NOTE | 2021-08-14 15:38 | CASEMGMT ---
IDA LOW Discharge Follow-up Phone Call: TRISTA: Jack Strata: 3 Call Date: 08/14/21 Discharge Date: 08/11/21 Time of Call: 1520 Admitting Diagnosis: NSTEMI/Takotsubo Cardiomyopathy This RN CM contacted pt via phone for discharge follow-up. Pt states she continues to not feel well since discharge. Pt reports having difficulty taking her medications and states when she tries to swallow them she feels like she is choking. Pt reports waking up feeling nauseated and states she feels like the medications are making my body sick. Pt expressed frustration that she has done what she was told such as no longer eating greasy foods and watching her Na intake but she is having difficulty finding any foods that she can eat and tolerate. Pt states she had an upper scope this morning and she was told there may be some gastritis and esophagitis but no uclers. Pt states they took biopsies which she is to follow-up with her GI provider next week for results. Pt became tearful and stated she is tired of feeling sick. Pt stated she no longer wants to live like this but also states she won't do it because of the insurance. This RN CM asked pt about family support and hx of psychiatry and she states she does go to see the psychiatrist at times and also spoke of her grandchildren. Pt states her grandchildren, especially her oldest granddaughter are a support to her. This RN CM discussed her medications and directed her to reach out to her assistant offset press operator and PCP for possible alternatives and to check with them prior to stopping them especially the plavix. Pt expressed understanding and stated she would reach out to Dr. Lopez's office to schedule a follow-up and discuss her Plavix. Pt denies any further questions or concerns at this time. Gio Valles RN CM
--- NOTE | 2021-08-15 11:44 | CASEMGMT ---
IDA LOW Follow-up: This IDA LOW contacted pt via phone in follow-up to conversation yesterday. Pt states she is doing the best I can. Encouraged pt to reach out to her psychiatrist. Pt states she does have an appointment scheduled for in two weeks and states she will contact them if she begins to feel too bad. Pt states she scheduled follow-up appointments with her GI for Saturday, Dr. Lopez for August, and a utility clerk for September 25. Pt looking forward to getting answers and hoping they come soon as she states she continue to not feel well. Encouraged pt to call her physicians, this IDA LOW or family for support when needed. Gio Valles RN CM
== END 2021-08-11 17:24 | disposition home or self-care (01) | DRG 190 ==
LOC: ED 10:55 → PCU 16:09
PROVIDERS: Internal Medicine Interventional Cardiology; Emergency Provider Emergency Medicine; PCP Family Medicine
DX: I21.4 Non-ST elevation (NSTEMI) myocardial infarction (principal); I51.81 Takotsubo syndrome; F17.200 Nicotine dependence, unspecified, uncomplicated; F32.9 Major depressive disorder, single episode, unspecified; F41.9 Anxiety disorder, unspecified; F60.3 Borderline personality disorder; I10 Essential (primary) hypertension; I25.10 Atherosclerotic heart disease of native coronary artery without angina pectoris; I25.5 Ischemic cardiomyopathy; I25.2 Old myocardial infarction; J44.9 Chronic obstructive pulmonary disease, unspecified; K21.9 Gastro-esophageal reflux disease without esophagitis; Z79.02 Long term (current) use of antithrombotics/antiplatelets; Z82.49 Family history of ischemic heart disease and other diseases of the circulatory system; Z88.5 Allergy status to narcotic agent; Z95.5 Presence of coronary angioplasty implant and graft; Z98.891 History of uterine scar from previous surgery
CPT/HCPCS: 36415; 71045; 71275; 80048; 80053; 80061; 80307; 84484; 85025; 85027; 85610; 85730; 87426; 93005; 93306; 93458; 99152; 99153; 99285; 99406; J7030; J7040; Q9967; A4216; C1769; C1894; J2405

== ENCOUNTER 2021-08-14 11:24 | Day surgery (SDC) | payer MEDICAID, SELFPAY ==
[2021-08-14] MEDS: Lactated Ringers 1,000 ML 100 ML IV (12:15)
--- NOTE | 2021-08-14 12:28 | PCM.HP.BLA ---
History and Physical Date of Admission: 08/14/21 HISTORY AND PHYSICAL ? Erica Pedroza 1965 ? REFERRING PHYSICIAN: Farhana Alicea PA-C ? CHIEF COMPLAINT: Consult (gallbladder) ? HPI: Ms. Pedroza ?is a 55 year old woman with a prior significant smoking history and an inferior wall myocardial infarction November 2020, hypertension and dyslipidemia who presents for routine follow-up. ?She continues to have multiple episodes of chest pain. ?She believes it secondary to ulcer. ?She has been following up with gastroenterology. ?She had done well on omeprazole in the past. ?However, she has been told she can no longer take the omeprazole because she is on Plavix. ?She is also having difficulty taking her medications which she believes is due to the aspirin. ?She has frequent episodes of sharp stabbing chest pain rating to her left arm. ?They have not changed since the time of her myocardial infarction in November.??She has shortness of breath on exertion which is unchanged from prior. ?She tells me she has not smoked since the time of her myocardial infarction. ?She has not had symptoms for congestive heart failure including PND, orthopnea, or lower extremity edema. ? Erica has not undergone prior endoscopy. ? The patient is being seen by me today at the request of Dr. Alicea for my opinion and advice regarding Epigastric pain (primary encounter diagnosis) Esophageal dysphagia. ? ? PAST MEDICAL HISTORY PAST MEDICAL HISTORY Diagnosis Date ? Anxiety 05/04/2014 ? Atherosclerotic heart disease of [place] coronary artery without angina pectoris ? ? Bipolar affective disorder (HCC) ? ? CAD (coronary artery disease) ? ? Carpal tunnel syndrome, left 01/06/2013 ? Carpal tunnel syndrome, right 01/06/2013 ? COPD (chronic obstructive pulmonary disease) ([facility]) ? ? Depression 05/04/2014 ? Essential hypertension ? ? GERD without esophagitis 04/05/2021 ? Ischemic cardiomyopathy ? ? Mood disorder ([facility]) 05/04/2014 ? NEGATIVE MEDICAL HISTORY ? ? Nicotine dependence ? ? Old inferior wall myocardial infarction ? ? Other chest pain 04/05/2021 ? Panic attacks 03/24/2014 ? STEMI (ST elevation myocardial infarction) ([facility]) 12/19/2020 ? 12/18/2020 ? ? PAST SURGICAL HISTORY PAST SURGICAL HISTORY Procedure Laterality Date ? DELIVERY ONLY ? 1984 ? , low transverse ? DELIVERY ONLY ? 1986 ? , low transverse ? DELIVERY ONLY ? 1987 ? , low transverse ? COLONOSCOP W/ OR W/O [facility] SPEC ? 03/09/2019 ? FECAL OCCULT BLOOD TEST ? 04/15/2017 ? negative ? LEFT HEART CATH,PERCUTANEOUS ? 01/25/2021 ? LEFT HEART CATH,PERCUTANEOUS ? 05/17/2021 ? PATIENT HAS A CORONARY ARTERY STENT ? 12/18/2020 ? ? ? CURRENT MEDICATIONS Current Outpatient Medications Medication Sig ? lamoTRIgine (LAMICTAL) 100 mg tablet Take 0.5 tablets by mouth once daily for 14 days, THEN 1 tablet once daily. ? LORazepam (ATIVAN) 0.5 mg Take 1 tablet by mouth twice daily as needed for up to 60 days. ? aluminum-magnesium rlxnzpauj-obdccajxpdr-qsembfabq viscous Take 5 mL by mouth every 4 hours as needed. ? famotidine (PEPCID) 20 mg tablet Take 1 tablet by mouth once daily. ? clopidogrel (PLAVIX) 75 mg tablet Take 1 tablet by mouth once daily. Per Salvatore Cardio ? aspirin 81 mg chewable tablet Take 81 mg by mouth once daily. ? amitriptyline (ELAVIL) 10 mg tablet Take 2 tablets by mouth daily at bedtime. Start 06/30/2021 (Patient not taking: Reported on 06/29/2021 ) ? Current Facility-Administered Medications Medication Dose Route Frequency ? perflutren lipid microspheres 1.3 mL in NaCl (PF) 0.9% 10 mL injection (DEFINITY) INTRAVENOUS DIRECTED PRN ? sodium chloride 0.9 % (flush) 10 mL (BD POSIFLUSH) 10 mL INTRAVENOUS DIRECTED PRN ? ? ALLERGIES: Dicyclomine, Morphine, Amlodipine, Carvedilol, Lisinopril, Celexa [Citalopram], and Venlafaxine Hcl ? PERSONAL HISTORY: SOCIAL HISTORY Social History ? Tobacco Use ? Smoking status: Former Smoker ? ? Packs/day: 0.50 ? ? Years: 20.00 ? ? Pack years: 10.00 ? ? Types: Cigarettes ? ? Quit date: 03/11/2021 ? ? Years since quittin.3 ? Smokeless tobacco: Never Used Substance Use Topics ? Alcohol use: No ? Drug use: No ? FAMILY HISTORY: FAMILY HISTORY FAMILY HISTORY Problem Relation Age of Onset ? Anxiety disorder Mother ? ? Depression Mother ? ? Diabetes Mother ? ? COPD Mother ? ? COPD Father ? ? Heart Father ? ? Hypertension Father ? ? Coronary Artery Disease Father ? ? 50's ? Anxiety disorder Sister ? ? Bipolar disorder Sister ? ? Anxiety disorder Sister ? ? Bipolar disorder Sister ? ? Anxiety disorder Sister ? ? Bipolar disorder Sister ? ? Diabetes Sister ? ? Anxiety disorder Brother ? ? Bipolar disorder Brother ? ? Bipolar disorder Son ? ? Bipolar disorder Son ? ? unsure of diagnosis, was sent to counseling at young age and refused to go back ? other (drug overdose) Son ? ? ? REVIEW OF SYMPTOMS: The review of systems data was entered by the nurse and reviewed by me ? Nursing Notes: Imani Wright RN 07/18/2021 10:42 AM Signed REVIEW OF SYSTEMS: General: The patient notes fatigue, denies weight loss, denies weight gain, notes feeling hot, and denies feelings of cold. Eyes: The patient denies glaucoma, denies eye injury/surgery, wears glasses or contacts. Ear/Nose/Throat: The patient notes allergies, denies hayfever, denies ear infections, and notes bloody noses. Cardiovascular: The patient notes chest pain, notes heart disease, notes high blood pressure,notes cardiac stent, notes prior heart attack, denies irregular heart beat, denies high cholesterol, denies poor circulation, denies heart failure, other cardiac issues, denies claudication, denies cold feet, denies peripheral arterial stent. Respiratory: The patient denies tuberculosis, denies pneumonia, denies frequent cough, denies pulmonary embolism, denies shortness of breath, and denies coughing up blood. Gastrointestinal: The patient notes difficulty swallowing, notes acid reflux, denies ulcers, denies vomiting, denies jaundice/hepatitis, notes gallbladder problems, denies black or tarry stools, denies hemorrhoids, denies bleeding from rectum, denies diverticulitis, notes constipation, notes diarrhea, denies loss of stool control, and denies hernias. Kidney/Bladder: The patient denies kidney stones, notes urine infections, and denies bloody urine. Skin: The patient denies a history of skin cancer, denies bleeding/changing moles, and denies a history of skin rash. Neurologic: The patient denies a history of epilepsy/convulsions, notes headaches, denies head/spinal injuries, and denies stroke/TIA. Psychiatric: The patient notes psychiatric medications, notes depression, and denies voices, denies substance abuse. Endocrine: The patient denies thyroid disorders, denies diabetes, and denies hormonal problems. Hematologic: The patient notes a history of bruising, denies bleeding, and denies anemia, denies blood clots. Infections: The patient denies a history of measles and mumps, denies rheumatic fever, and denies sexually transmitted diseases. Musculoskeletal: The patient denies back pain/injury, notes back problems, denies sciatica, denies knee/foot trouble, denies arthritis, or denies gout. ? ? When was patient's last Mammogram screening? unknown ? Last Colonoscopy: 03/09/2019 ? Imani Wright RN ? PHYSICAL EXAMINATION: ? General: The patient is 55 year old female, well nourished, well hydrated in no acute distress. The patient is oriented to time, place, and person. ? VITALS: Blood pressure 142/80, pulse 74, temperature 36.9 ?C (98.4 ?F), temperature source Temporal Artery, weight 55.8 kg (123 lb), SpO2 99 %. Body mass index is 21.79 kg/m?. ? HEENT: Normal cephalic, ataumatic, pupils are equally round, sclera are anicteric, mucous membranes are moist, oropharynx is clear. Neck has no masses, asymmetry or lymphadenopathy. Thyroid is unremarkable. ? Respiratory: Clear to auscultation and percussion. Normal respiratory excursion and pattern. ? Cardiac: Examination is regular rate and rhythm. ? Abdominal exam: Soft, nontender, with no palpable masses. No hepatosplenomegaly. No palpable hernias. ? Rectal exam: exam deferred ? Extremities: no clubbing, cyanosis or edema. No adenopathy. ? Other: ? LABORATORY VALUES: As Noted ? RADIOLOGIC STUDIES: As Noted ? Assessment IMPRESSION: Epigastric pain (primary encounter diagnosis) Esophageal dysphagia ? PLAN: I plan to perform upper endoscopy. We discussed the risks and benefits of the planned endoscopy. I have informed the patient that complications can occur including failure to complete the endoscopy and perforation. The patient had the opportunity to ask questions concerning the planned endoscopy. My staff has also explained the procedure to the patient in understandable terms and has given the patient printed material concerning the procedure. The patient freely consents to surgery. ? COVID (Procedure Consent) Procedure Criteria ? Procedure Criteria: Yes Elective The surgeon/proceduralist and patient have discussed in detail the risk of exposure to and/or potential harm posed by the COVID-19 virus with having a surgery/procedure at this time versus the risk of? delaying the surgery/procedure. It is not possible to know either the risk of delaying the surgery or procedure or chance of getting an infection with perfect accuracy, but a joint decision was made between the patient and the surgeon/proceduralist ?to proceed at this time with the scheduled surgery/procedure as indicated on the consent form. ? ? ? Diagnoses: (R10.13) Epigastric pain (primary encounter diagnosis) (R13.19) Esophageal dysphagia ? ? My findings have been communicated to Dr. Alicea via shared medical record. This note will be forwarded to Dr. Ellis Crandall MD. Return to Clinic: The patient is instructed to follow-up with me 1 week post operatively. ? Alhaji Melvin III, MD I have re-examined the patient. There are no clinical changes since date of exam.
--- NOTE | 2021-08-14 12:30 | IMM_PTH ---
PATIENT: SJ MOHAN LOC: EN U#:[id number] AGE/SX: 56/F ROOM: RE08/14/[address]: Dr. Alhaji Melvin MD : 1965 BED: DIS: 08/14/2021 SPEC #: [id number] RECD: 08/15/21 13:44 STATUS: CARSON RERodriguez #: [id number] [place]: 08/14/21 12:[address]: Alhaji Melvin DEPT: IMMUNOHISTOCHEMISTRY RECD BY: Joanna Alvarez ENTERED: 08/15/21 13:44 SP TYPE: IMMUNO OTHR DR: Dr. Ellis Crandall MD Tissues: A - Stomach, NOS Procedures: H Pylori (initial) PHYSICIAN & INSTITUTION [place] [address] SPECIMEN INFORMATION: Tissue Source: A ? Antrum biopsy Clinical Info: Epigastric pain, esophageal dysphagia Specimen Number: [id number] CPT code: 90932 METHODOLOGY: Deparaffinized sections of prefer/formalin-fixed tissue or PAP/DQ stained slides are incubated with monoclonal/polyclonal antibodies/oligonucleotide probes. Localization is made via biotin free immunoperoxidase method. Appropriate controls are performed and reacted as expected. Results on target cell population are indicated in the following table: RESULTS: ANTIBODY / CLONE RESULT Block A H Pylori (polyclonal) negative These tests were developed and their performance characteristics determined by [facility]. They may not have been cleared or approved by the U.S. Food and Drug Administration. The FDA has determined that such clearance or approval is not necessary. INTERPRETATION: A. Antrum biopsy: Negative for Helicobacter pylori organisms. SJ:isaias 08/16/2021
--- NOTE | 2021-08-14 12:30 | GASB_PTH ---
PATIENT: SJ MOHAN LOC: EN U#:[id number] AGE/SX: 56/F ROOM: RE08/14/[address]: Dr. Alhaji Melvin MD : 1965 BED: DIS: 08/14/2021 SPEC #: [id number] RECD: 08/14/21 15:07 STATUS: CARSON MARIE #: [id number] [place]: 08/14/21 12:[address]: Alhaji Melvin DEPT: SURGICAL PATHOLOGY RECD BY: Miles Cleary ENTERED: 08/15/21 10:31 SP TYPE: Gastric Bx OTHR DR: Dr. Ellis Crandall MD Tissues: A - Gastric mucous membrane B - Esophageal mucous membrane Procedures: Special Stain Group II Surgery Specimen Level IV Alcian Blue/PAS (control) HEADER OPERATION: [place] [place] PRE-OP DIAGNOSIS: Epigastric pain, esophageal dysphagia TISSUE SUBMITTED: A ? Antrum biopsy for H. pylori and path, B ? Esophageal biopsy MICROSCOPIC DIAGNOSIS A. Antrum, biopsy: Minimal chronic inflammation. See comment. B. 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 Moderate chronic inflammation. Negative for dysplasia. See comment. SJ:rg 08/16/2021 COMMENT A. The results of immunohistochemistry for Helicobacter pylori will be reported separately ([id number]). B. Alcian blue/PAS stain with matched control is used in the evaluation of the specimen. MICROSCOPIC DESCRIPTION Slides are reviewed. GROSS DESCRIPTION A - Received in fixative is one container labeled with the patient's name and designated antral biopsy. The specimen consists of two irregular fragments of light rm soft tissue that in aggregate measure 0.3 x 0.1 x 0.1 cm. The specimen is totally submitted in one cassette. B - Received in fixative is one container labeled with the patient's name and designated esophageal biopsy. The specimen consists of one irregular fragment of light rm soft tissue that measures 0.4 x 0.2 x 0.1 cm. The specimen is totally submitted in one cassette. / MACI:isaias 08/15/21 TC:3 CPT: 36243 x2, 38902
[2021-08-14 12:32] VITALS: BP 136/83; PULSE 65; RESP 16; TEMP 36.7; O2SAT 99; BMI 22.1
--- NOTE | 2021-08-14 13:09 | OP.EGD_ITS ---
Patient Name: Erica Pedroza Procedure Date: 08/14/2021 12:31 PM Date of : 1965 Age: 56 Procedure: Upper GI endoscopy Indications: Epigastric abdominal pain, Dysphagia Providers: Alhaji Melvin MD Medicines: See the Anesthesia note for documentation of the administered medications Patient Profile: This is a 56 year old female. Refer to note in patient chart for documentation of history and physical. Complications: No immediate complications. Procedure: Pre-Anesthesia Assessment: - Prior to the procedure, a History and Physical was performed, and patient medications and allergies were reviewed. The patient's tolerance of previous anesthesia was also reviewed. The risks and benefits of the procedure and the sedation options and risks were discussed with the patient. All questions were answered, and informed consent was obtained. Prior Anticoagulants: The patient has taken Plavix (clopidogrel), last dose was 5 days prior to procedure. ASA Grade Assessment: III - A patient with severe systemic disease. After reviewing the risks and benefits, the patient was deemed in satisfactory condition to undergo the procedure. After obtaining informed consent, the endoscope was passed under direct vision. Throughout the procedure, the patient's blood pressure, pulse, and oxygen saturations were monitored continuously. The gastroscope was introduced through the mouth, and advanced to the second part of duodenum. The upper GI endoscopy was accomplished without difficulty. The patient tolerated the procedure well. Scope In: 12:59:26 PM Scope Out: 1:03:12 PM Total Procedure Duration Time 0 hours 3 minutes 46 seconds Findings: Non-severe esophagitis with no bleeding was found at the gastroesophageal junction. Biopsies were taken with a cold forceps for histology. Localized mild inflammation characterized by congestion (edema) and erythema was found in the prepyloric region of the stomach. Biopsies were taken with a cold forceps for Helicobacter pylori testing. The examined duodenum was normal. No biopsies or other specimens were collected for this exam. Impression: - Non-severe reflux esophagitis. Biopsied. - Gastritis. Biopsied. - Normal examined duodenum. No specimens collected. Recommendation: - Discharge patient to home. - Resume previous diet. - Continue present medications. - Await pathology results. - Repeat upper endoscopy PRN for surveillance. - Return to physician trading assistant in 1 week. Procedure Code(s): --- Professional --- 56648, Esophagogastroduodenoscopy, flexible, transoral; with biopsy, single or multiple Diagnosis Code(s): --- Professional --- K21.0, Gastro-esophageal reflux disease with esophagitis K29.70, Gastritis, unspecified, without bleeding R10.13, Epigastric pain R13.10, Dysphagia, unspecified CPT copyright 2017 [employer] [place] [employer]. All rights reserved. The codes documented in this report are preliminary and upon him coder review may be revised to meet current compliance requirements. MD Alhaji Vora MD 08/14/2021 1:08:27 PM This report has been signed electronically. Number of Addenda: 0 Note Initiated On: 08/14/2021 12:31 PM
--- NOTE | 2021-08-14 13:09 | OP.CCLET_ITS ---
08/14/2021 Ellis Crandall MD Re : Upper GI endoscopy procedure for Erica Pedroza Dear Dr. Crandall This procedure was performed on Saturday, August 14, 2021. My impressions and recommendations are as follows: Impressions : - Non-severe reflux esophagitis. Biopsied. - Gastritis. Biopsied. - Normal examined duodenum. No specimens collected. Recommendations : - Discharge patient to home. - Resume previous diet. - Continue present medications. - Await pathology results. - Repeat upper endoscopy PRN for surveillance. - Return to physician assistant chief engineer in 1 week. My findings are described in the full procedure note, which is enclosed. If I can be of further assistance, please feel free to contact me at Doctor phone number(s): , Work: . Sincerely, MD Alhaji Vora MD 08/14/2021 1:08:27 PM This report has been signed electronically.
[2021-08-14 13:15] VITALS: BP 116/69; BP 136/83; PULSE 78; RESP 16; TEMP 36.4; O2SAT 100
[2021-08-14 13:20] VITALS: BP 117/83; BP 136/83; PULSE 77; RESP 16; O2SAT 98
[2021-08-14 13:25] VITALS: BP 136/83; BP 98/74; PULSE 78; RESP 16; O2SAT 100
[2021-08-14 13:30] VITALS: BP 118/74; BP 136/83; PULSE 77; RESP 16; TEMP 37.1; O2SAT 100
[2021-08-14 13:52] VITALS: BP 136/83
--- NOTE | 2021-08-14 14:12 | SUR.PHASEII ---
PT REPORTED SHARP LOWER ABDOMINAL PAIN. ABDOMEN SOFT, NONDISTENDED. BOWEL SOUNDS ACTIVE X4. PT THEN REPORTED PAIN IS SUBSIDING. PT AWARE TO CALL IF PAIN BECOMES WORSE . SHE REQUESTED TO GO HOME. NO NAUSEA, VOMITING.
== END 2021-08-14 14:17 ==
LOC: EN 11:28 → AC 11:42
PROVIDERS: PCP Family Medicine; Referring Provider Family Medicine; Visit Provider Surgery
PROC: 0DJ08ZZ Inspection of Upper Intestinal Tract, Via Natural or Artificial Opening Endoscopic (ICD-10-PCS; CPT 43235; principal; 2021-08-14 12:25)
DX: R10.13 Epigastric pain (principal); R13.10 Dysphagia, unspecified; K29.70 Gastritis, unspecified, without bleeding; K21.00 Gastro-esophageal reflux disease with esophagitis, without bleeding; I25.2 Old myocardial infarction; I10 Essential (primary) hypertension; E78.5 Hyperlipidemia, unspecified; Z87.891 Personal history of nicotine dependence; F32.9 Major depressive disorder, single episode, unspecified; F41.9 Anxiety disorder, unspecified; I25.10 Atherosclerotic heart disease of native coronary artery without angina pectoris; I25.5 Ischemic cardiomyopathy; J44.9 Chronic obstructive pulmonary disease, unspecified; Z79.82 Long term (current) use of aspirin; Z82.49 Family history of ischemic heart disease and other diseases of the circulatory system; Z83.3 Family history of diabetes mellitus; Z88.5 Allergy status to narcotic agent; Z88.8 Allergy status to other drugs, medicaments and biological substances; Z95.5 Presence of coronary angioplasty implant and graft
CPT/HCPCS: 43239; 88305; 88313; 88342; J7120

== ENCOUNTER 2021-09-03 14:39 | Emergency (ER) | payer MEDICAID, SELFPAY ==
[2021-09-03] VITALS (7 sets, daily range): BP systolic 150–186; BP diastolic 79–106; PULSE 61–83; RESP 10–18; TEMP 36.6; O2SAT 96–99; BMI 22.6
--- NOTE | 2021-09-03 14:50 | EKG12_ITS ---
Test Reason : Blood Pressure : / mmHG Vent. Rate : 065 BPM Atrial Rate : 065 BPM P-R Int : 152 ms QRS Dur : 094 ms QT Int : 422 ms P-R-T Axes : 072 072 082 degrees QTc Int : 438 ms Normal sinus rhythm T wave abnormality, consider anterolateral ischemia Abnormal ECG Confirmed by JORJE KING, LEONIDES ([id number]), associate editor FILI CASTILLO ([id number]) on 09/04/2021 12:58:20 PM Referred By: CARMENZA Confirmed By:LEONIDES RECINOS MD
[2021-09-03 15:02] LABS: Absolute Lymphocyte Count 2.98 X10^3/uL (0.83-4.51); Absolute Neutrophil Count 3.4 X10^3/uL (2.0-7.7); Basophil# 0.07 X10^3/uL; Eosinophil# 0.14 X10^3/uL; Hematocrit 39.3 % (37-47); Hemoglobin 12.9 g/dL (12.0-15.0); Lymphocyte # 2.98 X10^3/ul (0.83-4.51); Lymphocyte % 42.3 % (19-41); Mean Corp Hgb Conc 32.8 g/dL (32-36); Mean Corpuscular Hgb 28.8 pg (27.0-32.0); Mean Corpuscular Volume 87.7 fL (81-99); Mean Platelet Vol. 10.4 fl (6.2-12.0); Monocyte# 0.47 X10^3/uL; Monocyte% 6.7 % (0-10); NRBC Flagged by Analyzer 0 % (0-5); Neutrophil # 3.38 X10^3/uL (2.7-7.7); Neutrophil % 47.9 % (47-70); Platelet Count 269 K/mm3 (150-450); RBC Distribution Width CV 13.2 % (11.6-14.6); RBC Distribution Width SD 42.1 fl (35.1-43.9); Red Blood Count 4.48 M/mm3 (4.2-5.4); White Blood Count 7.1 K/mm3 (4.4-11.0)
--- NOTE | 2021-09-03 15:05 | RAD_ITS ---
HISTORY: chest pain EXAMINATION/TECHNIQUE: XR Chest 1 View: 1 view COMPARISON: 08/10/21 FINDINGS: LINES/DEVICES: None. LUNGS: No consolidation, edema or effusion. No pneumothorax. MEDIASTINUM AND CARDIOVASCULAR STRUCTURES: Cardiac silhouette not enlarged. Central airways and mediastinal contour are unremarkable. BONES AND SOFT TISSUES: No acute bony abnormalities. RAD/Chest 1 View (Portable) IMPRESSION: No radiographic evidence of acute cardiopulmonary disease. at 1538 Reported and signed by: Naseem Lu MD Electronically Signed: Naseem Lu MD at 15:37 EDT Tel , Service support ,
[2021-09-03 15:19] LABS: Anion Gap 7 (5-15); BUN 12 mg/dL (7-18); BUN/Creat Ratio 17.2 RATIO (10-20); Calcium,Total 9.7 mg/dL (8.5-10.1); Chloride 108 mmol/L (98-107); EST Glomerular Filtration Rate 93 mL/min (>60); Est Glom Filt Rate - Afr Amer 112 mL/min (>60); Estimated Creatinine Clearance 68.52 ml/min; Glucose 85 mg/dL (74-106); Potassium 3.6 mmol/L (3.5-5.1); Sodium Level 140 mmol/L (136-145); Troponin-I HS 12 pg/mL (3.0-54.0)
--- NOTE | 2021-09-03 16:18 | EKG12_ITS ---
Test Reason : Blood Pressure : / mmHG Vent. Rate : 065 BPM Atrial Rate : 065 BPM P-R Int : 166 ms QRS Dur : 094 ms QT Int : 444 ms P-R-T Axes : 069 068 081 degrees QTc Int : 461 ms Normal sinus rhythm T wave abnormality, consider anterolateral ischemia Prolonged QT Abnormal ECG Confirmed by JORJE KING, LEONIDES ([id number]), state editor FILI CASTILLO ([id number]) on 09/04/2021 12:58:46 PM Referred By: DON Confirmed By:LEONIDES RECINOS MD
[2021-09-03 17:40] LABS: Troponin-I HS 12 pg/mL (3.0-54.0)
--- NOTE | 2021-09-03 18:47 | ED.VIS.CHEST ---
HPI History of Present Illness Chief Complaint: Chest Pain Detail of Chief Complaint: Left-sided chest pain that started at 10:30 AM Informant: patient Onset/Context/Timing Onset: Hours Activity at onset: sudden and rest Timing: Continuous Quality: Positive for Aching and Sharp Location: Left Parasternal Current Severity: Moderate Maximum Severity: Moderate Worsened By: Nothing Relieved By: Nothing Associated Symptoms: Positive for Dyspnea (Patient does report being anxious.); Negative for Nausea, Vomiting, Diaphoresis, Cough, Fever, Lightheadedness, Acid Reflux and Palpitations Narrative Narrative: Patient is a 56-year-old woman with known history of coronary disease who presents with left-sided parasternal chest discomfort that started at 10:30 AM. This occurred at rest. There were no exacerbating precipitating factors. There is shortness of breath. She does report slight anxiousness. Patient was seen August 10 and diagnosed with Takotsubo cardiomyopathy. Stent that was placed prior visit is patent. She does have lesions that are less than 50% and unchanged from prior. She denies fever, chills night sweats. She denies history of PE or DVT. She denies leg pain, swelling or discoloration. She denies Covid-like symptoms. She denies rash. She has no other complaints. Prior Similar Symptoms: Yes and - (Takotsubo cardiomyopathy) CVD Risk Factors: Positive for Hypercholesterolemia and Smoking; Negative for Hypertension, Diabetes and Family History 1' </=55 PE Risk Factors: Negative for Recent Travel/Surgery, Recent Immobilization, Prior DVT or PE, Cancer and OCP + Smoking + >/=35 TAD Risk Factors: Negative for Marfan's Syndrome, Hypertension and Family History PFSH PFS Medical History Abdominal pain Adverse drug reaction Anxiety disorder Asthma-COPD overlap syndrome Atherosclerotic heart disease of [place] coronary artery without angina pectoris Back pain Bipolar affective disorder Borderline personality disorder Cardiology follow-up encounter Chest pain of uncertain etiology Chest pain, non-cardiac Chronic left-sided thoracic back pain COPD (chronic obstructive pulmonary disease) Depression Difficulty swallowing Eloped from emergency department Essential (primary) hypertension Former smoker Gastric reflux GERD (gastroesophageal reflux disease) Headache History of echocardiogram History of Holter monitoring History of ST elevation myocardial infarction (STEMI) (08/10/21) Intermittent palpitations Ischemic cardiomyopathy Leg cramps Myocardial infarct Nicotine dependence 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) Post-menopausal Shortness of breath Shortness of breath on exertion Syncope Takotsubo cardiomyopathy (08/10/21) Wears glasses Home Medications lorazepam [Ativan] 0.5 mg PO BID PRN 06/19/21 [History Last Taken 1 Week Ago ~08/03/21] aspirin 81 mg tablet,delayed release 81 mg PO QODAY 07/13/21 [History Last Taken 08/07/21] lamotrigine 50 mg PO DAILY 08/10/21 [History Last Taken 1 Week Ago ~08/03/21] diltiazem HCl 60 mg PO BID 08/11/21 [History Last Taken Unknown] prasugrel 10 mg tablet 10 mg PO DAILY #90 tab 08/18/21 [Rx Last Taken Unknown] famotidine 40 mg tablet 40 mg PO BID 08/31/21 [History Last Taken Unknown] fluticasone fur. 100 mcg-umeclid 62.5 mcg-vilant 25 mcg inhalat.powder 1 inh INHALATION DAILY #60 ea 08/31/21 [Rx Last Taken Unknown] Allergy/AdvReac Type Severity Reaction Status Date / Time morphine Allergy Hives Verified 09/03/21 15:57 amlodipine AdvReac Intermediate chest Verified 09/03/21 15:57 pain and cannot breathe carvedilol [From Coreg] AdvReac Intermediate throat Verified 09/03/21 15:57 closing up and chest pressure citalopram [From Celexa] AdvReac NAUSEATED Verified 09/03/21 15:57 AND IRRITABLE lisinopril AdvReac SOB, chest Verified 09/03/21 15:57 tightness,throat closing venlafaxine [From Effexor] AdvReac DIDN'T Verified 09/03/21 15:57 WORK Family History Father CAD (coronary artery disease) Myocardial infarction Surgical History H/O section History of cardiac catheterization (08/11/21) History of coronary artery stent placement (12/18/20) History of left heart catheterization (05/17/21) Social History household members: none Smoking Status: Former smoker quit date: 01/23/21 pack-years: 30 how long ago did patient quit smokin days ago alcohol intake: never substance use type: does not use caffeine: Yes Type: coffee Number of servings: 2 ROS ROS ED Constitutional Constitutional ED: Denies chills, fever(s), subjective, sweats or weight loss Eyes Eyes: Reports none ENT ENT ED: Denies ear pain, rhinorrhea or sore throat Cardiovascular Cardiovascular: Reports as per HPI; Denies orthopnea or paroxysmal nocturnal dyspnea Respiratory/Chest Respiratory/Chest: Reports dyspnea; Denies cough, dyspnea on exertion, orthopnea, paroxysmal nocturnal dyspnea or sputum Gastrointestinal Gastrointestinal: Denies abdominal pain, diarrhea, melena, nausea or vomiting Genitourinary Genitourinary ED: Denies dysuria, hematuria or urinary frequency Musculoskeletal Musculoskeletal: Denies arthralgias, back pain, myalgias or neck pain Integumentary Denies rash Neurologic Neurologic: Denies headache(s), paresthesias or weakness Endocrine Endocrinology: Denies polydipsia, polyphagia or polyuria Hematologic/Lymphatic Hematologic/Lymphatic: Denies easy bleeding or easy bruising Allergic/Immunologic Allergic/Immunologic ED: Denies urticaria EXAM Physical Exam Const Vital Signs: 09/03/21 14:39 09/03/21 14:56 09/03/21 15:52 Temperature 97.9 F Temperature Source Temporal Pulse Rate 83 69 66 Respiratory Rate 18 14 Respiratory Effort Normal Blood Pressure 150/79 H 186/89 H Blood Pressure Mean 102 121 Pulse Ox 99 Oxygen Delivery Method Room Air Room Air 09/03/21 16:30 09/03/21 17:14 Temperature Temperature Source Pulse Rate 64 63 Respiratory Rate 16 10 L Respiratory Effort Blood Pressure 168/106 H 180/94 H Blood Pressure Mean 126 122 Pulse Ox 98 97 Oxygen Delivery Method Room Air Room Air Positive well nourished and well developed General Appearance ED: well developed and NAD; Negative for pallor HEENT Reports TM's clear and moist mucous membranes normocephalic and atraumatic Tympanic Membrane ED: Yes TM's clear Eyes PERRL and EOMs intact bilaterally General Eye ED: Negative for pale conjunctiva or scleral icterus Neck no lymphadenopathy, supple and no JVD Chest Wall inspection of chest normal and palpation of chest normal Resp normal respiratory effort Effort and Inspection: respiratory distress Cardio regular rate, regular rhythm, S1 normal heart sound, S2 normal heart sound and no murmurs GI normal to inspection, nondistended, normoactive bowel sounds, soft to palpation and non-tender Back/Spine no CVA tenderness and no thoracic nor lumbar tenderness Cervical Spine: Negative for cervical spine tenderness Extremity normal to inspection Extremity Narrative: There is no asymmetry, swelling, discoloration, leg vein distention, palpable cords or tenderness along the distribution of the deep venous system. General Extremety ED: Negative for edema or tenderness General Extremity: Negative for edema Neuro oriented x3, CN's II-XII intact bilaterally and no sensory deficits noted Sensorium / Orientation: awake and alert Motor Exam: strength 5/5 throughout Psych mental status grossly normal Psych Narrative: Affect is flat Skin no rashes or lesions noted and no wounds General Skin Exam: Negative for jaundice or pallor Heart Score History: Slightly/Non-Suspicious ECG: Normal (EKG is unchanged from prior. She has flipped T waves anterior leads that are unchanged from prior.) Age: >45 - <65 years Risk Factors: >/= 3 Risk Factors or History of CAD Troponin: </= Normal Limit Score: 3 MDM MDM MDM Narrative Medical decision making narrative: Known history of coronary disease with atypical presentation. Will obtain EKG, chest x-ray appropriate blood work to evaluate for cardiac ischemia, anemia, pulmonary etiology. Lab Data Attestation: I reviewed the patient's lab results. Lab results narrative: Per the high-sensitivity troponin algorithm repeat troponin was needed. Repeat troponin is 12 as well with a delta of 0. In light of unchanged 2 EKGs normal troponin with a delta of 0 patient was discharged to home. She was informed the cause of her pain is unknown. There is no concern at this time for cardiac based on the rule out rule with a negative predictive value of 100%. Labs: Laboratory Results - last 24 hr 09/03/21 09/03/21 09/03/21 14:50 14:50 17:10 WBC 7.1 RBC 4.48 Hgb 12.9 Hct 39.3 MCV 87.7 MCH 28.8 MCHC 32.8 RDW Std Deviation 42.1 RDW Coeff of Dona 13.2 Plt Count 269 MPV 10.4 Immature Gran % (Auto) 0.100 Neut % (Auto) 47.9 Lymph % (Auto) 42.3 H Carver % (Auto) 6.7 Eos % (Auto) 2.0 Baso % (Auto) 1.0 Absolute Neuts (auto) 3.4 Absolute Lymphs (auto) 2.98 Nucleated RBC % 0 Sodium 140 Potassium 3.6 Chloride 108 H Carbon Dioxide 25.0 Anion Gap 7 BUN 12 Creatinine 0.70 Estim Creat Clear Calc 68.52 Est GFR (MDRD) Af Amer 112 Est GFR (MDRD) Non-Af 93 BUN/Creatinine Ratio 17.2 Glucose 85 Calcium 9.7 Troponin I High Sens 12 12 Radiography Chest X-Ray - ED: 1 View, Read by ED Physician (Chest x-ray was interpreted by me at 1545. The report by radiologist was read.), Heart, Lungs, Mediastinum, Bony Structures and No Acute Disease Diagnostic Testing: Clinical Impression(s) from Imaging Studies Chest X-Ray 09/03/21 15:05 IMPRESSION: No radiographic evidence of acute cardiopulmonary disease. at 1538 Reported and signed by: Naseem Lu MD Electronically Signed: Naseem Lu MD at 15:37 EDT Tel , Service support , Discharge Plan Triage Chief Complaint: Chest Pain ED Provider: Omar Mcdonald Dx/Rx/DC Orders Clinical Impression: Left-sided chest pain Instructions: ED Chest Pain, Noncardiac Prescriptions: No Action famotidine [Pepcid] 40 mg tablet 40 mg PO BID RF: 0 Trelegy Ellipta 100-62.5-25 mcg blister with device 1 inh inhalation DAILY Qty: 60 RF: 5 aspirin [Adult Low Dose Aspirin] 81 mg tablet,delayed release (DR/EC) 81 mg PO QODAY RF: 0 lorazepam [Ativan] 0.5 mg Tablet 0.5 mg PO BID PRN (Reason: Anxiety) RF: 0 diltiazem HCl 60 mg Capsule,Extended Release 12 Hr 60 mg PO BID RF: 0 lamotrigine 100 mg tablet 50 mg PO DAILY RF: 0 prasugrel [Effient] 10 mg tablet 10 mg PO DAILY Qty: 90 RF: 3 Primary Care Provider: Ellis Crandall Referrals: Ellis Crandall MD [Primary Care Provider] - As Needed Disposition Disposition: Home, Self Care
== END 2021-09-03 19:01 | disposition home or self-care (01) ==
PROVIDERS: Emergency Provider Emergency Medicine; PCP Family Medicine
DX: R07.89 Other chest pain (principal); E78.00 Pure hypercholesterolemia, unspecified; I25.10 Atherosclerotic heart disease of native coronary artery without angina pectoris; Z79.82 Long term (current) use of aspirin; Z79.899 Other long term (current) drug therapy; Z87.891 Personal history of nicotine dependence; Z95.5 Presence of coronary angioplasty implant and graft; I25.2 Old myocardial infarction; F60.3 Borderline personality disorder; F41.9 Anxiety disorder, unspecified; J44.9 Chronic obstructive pulmonary disease, unspecified; I10 Essential (primary) hypertension; I51.81 Takotsubo syndrome
CPT/HCPCS: 71045; 80048; 84484; 85025; 93005; 99284; A4216

== ENCOUNTER 2021-09-30 18:30 | Emergency (ER) | payer MEDICAID, SELFPAY ==
[2021-09-30 18:31] VITALS: BP 163/93; PULSE 79; RESP 14; TEMP 36.6; O2SAT 100
--- NOTE | 2021-09-30 18:37 | EDS_ITS ---
HPI HPI - GI History of Present Illness Chief Complaint: Abd Pain Detail of Chief Complaint: Epigastric pain Informant: patient Abdominal Pain/Flank Pain Onset: Days (Pain started 2 days ago) Context: Sudden Onset Timing: Continuous Quality: Aching and Burning Current Severity: Moderate Maximum Severity: Severe Worsened by: Nothing; Not Worsened By Car ride, Food and Movement Relieved by: Nothing Nausea/Vomiting/Emesis GI Symptom: Positive for Nausea; Negative for Vomiting Onset: Days Severity: Moderate Diarrhea/Melena/Hematochezia GI Symptom: Negative for Diarrhea, Melena and Hematochezia Associated Symptoms Associated Symptoms: Positive for Dysuria, Frequency and Hematuria Narrative Narrative: Patient is a middle-aged woman with history of Takotsubo cardiomyopathy, COPD with bronchospasm, hyperlipidemia who states she has quit smoking. She complains of pain that she localized to the epigastrium. She is not been able to eat anything for the past 2 days. She denies a difference with change in position or activity. She states she is compliant with her GERD medicine. She denies intolerance to greasy or fried foods. She denies back or flank pain. She has been seen several times for abdominal pain. Prior similar symptoms: Yes Recent Illness/Hospitalization: No (May 2021) [facility] Medical History Abdominal pain Adverse drug reaction Anxiety disorder Asthma-COPD overlap syndrome Atherosclerotic heart disease of [place] coronary artery without angina pectoris Back pain Bipolar affective disorder Borderline personality disorder Cardiology follow-up encounter Chest pain of uncertain etiology Chest pain, non-cardiac Chronic left-sided thoracic back pain COPD (chronic obstructive pulmonary disease) Depression Difficulty swallowing Eloped from emergency department Essential (primary) hypertension Former smoker Gastric reflux GERD (gastroesophageal reflux disease) Headache History of echocardiogram History of Holter monitoring History of ST elevation myocardial infarction (STEMI) (08/10/21) Intermittent palpitations Ischemic cardiomyopathy Leg cramps Myocardial infarct Nicotine dependence 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) Post-menopausal Shortness of breath Shortness of breath on exertion Syncope Takotsubo cardiomyopathy (08/10/21) Wears glasses Home Medications lorazepam [Ativan] 0.5 mg PO BID PRN 06/19/21 [History Last Taken 1 Week Ago ~08/03/21] aspirin 81 mg tablet,delayed release 81 mg PO QODAY 07/13/21 [History Last Taken 08/07/21] lamotrigine 50 mg PO DAILY 08/10/21 [History Last Taken 1 Week Ago ~08/03/21] clopidogrel 75 mg tablet 75 mg PO DAILY 09/05/21 [History Last Taken Unknown] fluticasone furoate 200 mcg-vilanterol 25 mcg/dose inhalation powder 1 inh INHALATION QDAY #60 ea 09/05/21 [Rx Last Taken Unknown] umeclidinium 62.5 mcg/actuation blister powder for inhalation 1 inh INHALATION QDAY #30 ea 09/05/21 [Rx Last Taken Unknown] famotidine 40 mg tablet 40 mg PO DAILY tab 09/12/21 [History Last Taken Unknown] potassium chloride 10 mEq capsule,extended release 10 meq PO .weekly cap 09/12/21 [History Last Taken Unknown] fluticasone propionate 50 mcg/actuation nasal spray,suspension 2 spray INTRANASAL DAILY #16 g 09/26/21 [Rx Last Taken Unknown] Allergy/AdvReac Type Severity Reaction Status Date / Time morphine Allergy Hives Verified 09/30/21 18:31 amlodipine AdvReac Intermediate chest Verified 09/30/21 18:31 pain and cannot breathe carvedilol [From Coreg] AdvReac Intermediate throat Verified 09/30/21 18:31 closing up and chest pressure citalopram [From Celexa] AdvReac NAUSEATED Verified 09/30/21 18:31 AND IRRITABLE lisinopril AdvReac SOB, chest Verified 09/30/21 18:31 tightness,throat closing venlafaxine [From Effexor] AdvReac DIDN'T Verified 09/30/21 18:31 WORK Family History Father CAD (coronary artery disease) Myocardial infarction Surgical History H/O section History of cardiac catheterization (08/11/21) History of coronary artery stent placement (12/18/20) History of left heart catheterization (05/17/21) Social History household members: none Smoking Status: Former smoker quit date: 01/23/21 pack-years: 30 how long ago did patient quit smokin days ago alcohol intake: never substance use type: does not use caffeine: Yes Type: coffee Number of servings: 2 ROS ROS ED Constitutional Constitutional ED: Denies chills, fever(s), subjective, sweats or weight loss ENT ENT ED: Denies ear pain or rhinorrhea Cardiovascular Cardiovascular: Denies chest pain, orthopnea, palpitations or paroxysmal nocturnal dyspnea Respiratory/Chest Respiratory/Chest: Denies cough, dyspnea, dyspnea on exertion, orthopnea or paroxysmal nocturnal dyspnea Gastrointestinal Gastrointestinal: Reports abdominal pain and nausea; Denies diarrhea, melena or vomiting Genitourinary Genitourinary ED: Denies dysuria, hematuria or urinary frequency Musculoskeletal Musculoskeletal: Denies arthralgias, back pain, myalgias or neck pain Neurologic Neurologic: Denies paresthesias or weakness Hematologic/Lymphatic Hematologic/Lymphatic: Denies easy bleeding or easy bruising EXAM Physical Exam Const Vital Signs: 09/30/21 18:31 09/30/21 19:35 Temperature 97.9 F Temperature Source Temporal Pulse Rate 79 80 Respiratory Rate 14 15 Blood Pressure 163/93 H 148/96 H Blood Pressure Mean 116 113 Pulse Ox 100 100 Oxygen Delivery Method Room Air Room Air Positive well nourished and well developed General Appearance ED: well developed and NAD; Negative for pallor HEENT Reports moist mucous membranes HEENT Narrative: Nares patent. Posterior pharynx not erythema or exudate. normocephalic and atraumatic Eyes PERRL and EOMs intact bilaterally General Eye ED: Negative for pale conjunctiva or scleral icterus Neck no lymphadenopathy, supple and no JVD Resp normal respiratory effort and clear to auscultation bilaterally Cardio regular rate, regular rhythm, S1 normal heart sound, S2 normal heart sound and no murmurs GI non-distended and no masses GI Narrative: There is no palpable pulsatile mass. Auscultation: normoactive bowel sounds; Negative for hyperactive bowel sounds Palpation: tender epigastric (Pain to mild palpation. Increases with deep palpation.); Negative for guarding or rigid Back/Spine no CVA tenderness Lumbar Spine / Lower Back: Negative for lumbar spinal tenderness Extremity Negative for full ROM General Extremety ED: Negative for edema General Extremity: Negative for edema Neuro No CN's II-XII intact bilaterally Sensorium / Orientation: Negative for alert or oriented to person Psych mental status grossly normal and thought process normal Skin no wounds General Skin Exam: Negative for jaundice or pallor Lesions: no lesions Rashes: no rashes MDM MDM MDM Narrative Medical decision making narrative: With history of GERD and epigastric pain a GI cocktail was ordered. Patient is undergone cervical work-up with multiple prior visits. Patient was reassessed at 2009. Her pain is totally resolved. Plan is to discharge to home Discharge Plan Triage Chief Complaint: Abd Pain ED Provider: Omar Mcdonald Dx/Rx/DC Orders Clinical Impression: Acute epigastric pain, Chest pain due to GERD Instructions: ED GERD (Adult) Prescriptions: No Action famotidine [Pepcid] 40 mg tablet 40 mg PO DAILY RF: 0 aspirin [Adult Low Dose Aspirin] 81 mg tablet,delayed release (DR/EC) 81 mg PO QODAY RF: 0 potassium chloride 10 mEq capsule, extended release 10 meq PO .weekly RF: 0 lorazepam [Ativan] 0.5 mg Tablet 0.5 mg PO BID PRN (Reason: Anxiety) RF: 0 lamotrigine 100 mg tablet 50 mg PO DAILY RF: 0 Breo Ellipta 200-25 mcg/dose blister with device 1 inh inhalation QDAY Qty: 60 RF: 6 Incruse Ellipta 62.5 mcg/actuation blister with device 1 inh inhalation QDAY Qty: 30 RF: 3 clopidogrel 75 mg tablet 75 mg PO DAILY RF: 0 fluticasone propionate [Flonase Allergy Relief] 50 mcg/actuation spray,suspension 2 spray intranasal DAILY Qty: 16 RF: 3 Primary Care Provider: Ellis Crandall Referrals: Ellis Crandall MD [Primary Care Provider] - 3-5 Days if not improving Disposition Disposition: Home, Self Care
[2021-09-30] MEDS: Mag Hydrox/Al Hydrox/Simeth 30 ML UDC PO (18:42)
[2021-09-30 19:35] VITALS: BP 148/96; PULSE 80; RESP 15; O2SAT 100
== END 2021-09-30 20:27 | disposition home or self-care (01) ==
PROVIDERS: Emergency Provider Emergency Medicine; PCP Family Medicine
DX: K21.9 Gastro-esophageal reflux disease without esophagitis (principal); R07.9 Chest pain, unspecified; R10.13 Epigastric pain; Z87.891 Personal history of nicotine dependence; E78.5 Hyperlipidemia, unspecified; I25.10 Atherosclerotic heart disease of native coronary artery without angina pectoris; J44.9 Chronic obstructive pulmonary disease, unspecified; I51.81 Takotsubo syndrome; I25.2 Old myocardial infarction; Z79.82 Long term (current) use of aspirin; Z95.5 Presence of coronary angioplasty implant and graft; I10 Essential (primary) hypertension
CPT/HCPCS: 99283

== ENCOUNTER → 2021-10-06 12:46 | Outpatient (CLI) | payer MEDICAID, SELFPAY ==
--- NOTE | 2021-10-06 12:59 | ECHOL_ITS ---
Reason For Study: EVAL EF Procedure This was a limited 2D transthoracic echocardiogram. Exam performed in department. Left Ventricle Normal LV size. Left ventricular systolic function is normal. The estimated ejection fraction is 65 %. No regional wall motion abnormalities noted. Right Ventricle Normal RV size. Normal systolic function. Atria Normal left atrium. Normal right atrium. Mitral Valve Normal mitral valve. Tricuspid Valve Normal tricuspid valve. Aortic Valve Normal aortic valve. Trisinus/trileaflet aortic valve. Pulmonic Valve Normal pulmonic valve. Great Vessels Normal aortic root. The pulmonary artery is normal size. Normal inferior vena cava. Pericardium/Pleural No pericardial effusion. MMode/2D Measurements & Calculations LVIDd: 4.6 cm IVSd: 0.80 cm Ao root diam: 3.1 cm LVIDs: 3.3 cm LVPWd: 0.79 cm LA dimension: 2.8 cm RVDd: 2.5 cm FS: 29.3 % LAV(MOD-bp): 38.0 ml LA A4 area: 14.1 cm2 RA A4 area: 9.5 cm2 LAV(MOD-bp) Indexed: 24.3 ml/m2 LAV(MOD-sp2): 36.3 ml LAV(MOD-sp4): 36.8 ml ECHO/Echo, Limited Study Interpretation Summary Normal LV size. Left ventricular systolic function is normal. The estimated ejection fraction is 65 %. Liver cyst noted Structurally normal valves. Compared to previous study, the le ft ventricular systolic function has improved.. Ordering Physician: Ernst Allen Referring Physician: Ellis Crandall Performed By: Velia Estrada, ISABELLA, RVT
== END ==
PROVIDERS: PCP Family Medicine; Referring Provider Nurse Practitioner Family; Visit Provider Nurse Practitioner Family
DX: I51.81 Takotsubo syndrome (principal); E78.5 Hyperlipidemia, unspecified
CPT/HCPCS: 93308

== ENCOUNTER 2021-10-27 21:00 | Emergency (ER) | payer MEDICAID, SELFPAY ==
[2021-10-27 21:01] VITALS: BP 189/93; PULSE 79; RESP 15; TEMP 35.8; O2SAT 100; BMI 23.0
[2021-10-27 21:03] VITALS: BP 189/93; PULSE 79; RESP 15; TEMP 35.8; O2SAT 100
[2021-10-27 22:28] LABS: Bacteria 0 SEEN /hpf (None Seen); Color, Urine Yellow (Yellow); Glucose, Dipstick Normal (Normal); Ketone-Dipstick 5 mg/dl (Negative); Leukocyte Esterase-Dipstick Negative /ul (Negative); Mucous, Urine 0 SEEN /hpf (<or=2+); Nitrite-Dipstick Negative (Negative); Occult Blood-Urine 25 /ul (Negative); Protein-Dipstick Negative (Negative); Red Blood Cells-Urine 0 SEEN /hpf (0-5); Specific Gravity, Urine 1.015 (1.002-1.030); Squamous Epithelial Cells - UA 0 SEEN /hpf (5-10); Urine Bilirubin Dipstick Negative (Negative); Urine Clarity Clear (Clear); Urine Urobilinogen Normal (Normal)
[2021-10-27 22:35] LABS: White Blood Cells 0-5 SEEN /hpf (0-5); Yeast-Urine RARE /hpf (None Seen)
[2021-10-27 22:40] LABS: Absolute Lymphocyte Count 2.71 X10^3/uL (0.83-4.51); Absolute Neutrophil Count 3.8 X10^3/uL (2.0-7.7); Basophil# 0.04 X10^3/uL; Basophil% 0.6 % (0-1); Eosinophil# 0.14 X10^3/uL; Hematocrit 38.5 % (37-47); Hemoglobin 12.7 g/dL (12.0-15.0); Lymphocyte # 2.71 X10^3/ul (0.83-4.51); Mean Corpuscular Hgb 28.4 pg (27.0-32.0); Mean Corpuscular Volume 86.1 fL (81-99); Mean Platelet Vol. 10.4 fl (6.2-12.0); Monocyte# 0.45 X10^3/uL; Monocyte% 6.3 % (0-10); NRBC Flagged by Analyzer 0 % (0-5); Neutrophil # 3.78 X10^3/uL (2.7-7.7); Platelet Count 279 K/mm3 (150-450); RBC Distribution Width SD 41.1 fl (35.1-43.9); Red Blood Count 4.47 M/mm3 (4.2-5.4); White Blood Count 7.1 K/mm3 (4.4-11.0)
[2021-10-27] MEDS: Mag Hydrox/Al Hydrox/Simeth 30 ML UDC PO (23:07)
[2021-10-27 23:16] LABS: ALB/GLOB Ratio 0.9 RATIO (0.9-2.4); AST(SGOT) 18 U/L (15-37); Alanine Aminotransfer ALT/SGPT 18 U/L (13-56); Albumin, Serum 3.6 g/dL (3.2-5.0); Alkaline Phosphatase 79 U/L (45-117); Anion Gap 8 (5-15); BUN 17 mg/dL (7-18); Calcium,Total 9.8 mg/dL (8.5-10.1); Chloride 106 mmol/L (98-107); Creatinine, Serum 0.71 mg/dL (0.55-1.02); EST Glomerular Filtration Rate 91 mL/min (>60); Est Glom Filt Rate - Afr Amer 110 mL/min (>60); Estimated Creatinine Clearance 70.81 ml/min; Glucose 95 mg/dL (74-106); Potassium 3.8 mmol/L (3.5-5.1); Protein, Total 7.6 g/dL (6.4-8.2); Sodium Level 139 mmol/L (136-145)
[2021-10-28 00:03] VITALS: RESP 16
--- NOTE | 2021-10-28 00:08 | ED.VIS.GI ---
HPI HPI - GI History of Present Illness Chief Complaint: Abd Pain Narrative Narrative: 56-year-old female with history of GERD presenting with epigastric burning. She states this is been a problem which is increasing. She was seen by her GI doctor who did an upper endoscopy a couple of months ago and stated he did not see any source for her pain. He referred her to Dr. Magaña and she has an appointment in 3 days. She cannot take Protonix because she had an allergic reaction to it. She denies diarrhea, constipation she has mild nausea. She does not have any chest pain or shortness of breath. No fever or chills. [facility] Medical History Abdominal pain Adverse drug reaction Anxiety disorder Asthma-COPD overlap syndrome Atherosclerotic heart disease of [place] coronary artery without angina pectoris Back pain Bipolar affective disorder Borderline personality disorder Cardiology follow-up encounter Chest pain of uncertain etiology Chest pain, non-cardiac Chronic left-sided thoracic back pain COPD (chronic obstructive pulmonary disease) Depression Difficulty swallowing Eloped from emergency department Essential (primary) hypertension Former smoker Gastric reflux GERD (gastroesophageal reflux disease) Headache History of echocardiogram History of Holter monitoring History of ST elevation myocardial infarction (STEMI) (08/10/21) Intermittent palpitations Ischemic cardiomyopathy Leg cramps Myocardial infarct Nicotine dependence 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) Post-menopausal Shortness of breath Shortness of breath on exertion Syncope Takotsubo cardiomyopathy (08/10/21) Wears glasses Home Medications lorazepam [Ativan] 0.5 mg PO BID PRN 06/19/21 [History Last Taken 1 Week Ago ~08/03/21] aspirin 81 mg tablet,delayed release 81 mg PO QODAY 07/13/21 [History Last Taken 08/07/21] lamotrigine 50 mg PO DAILY 08/10/21 [History Last Taken 1 Week Ago ~08/03/21] clopidogrel 75 mg tablet 75 mg PO DAILY 09/05/21 [History Last Taken Unknown] fluticasone furoate 200 mcg-vilanterol 25 mcg/dose inhalation powder 1 inh INHALATION QDAY #60 ea 09/05/21 [Rx Last Taken Unknown] umeclidinium 62.5 mcg/actuation blister powder for inhalation 1 inh INHALATION QDAY #30 ea 09/05/21 [Rx Last Taken Unknown] potassium chloride 10 mEq capsule,extended release 10 meq PO .weekly cap 09/12/21 [History Last Taken Unknown] fluticasone propionate 50 mcg/actuation nasal spray,suspension 2 spray INTRANASAL DAILY #16 g 09/26/21 [Rx Last Taken Unknown] esomeprazole magnesium 20 mg capsule,delayed release 20 mg PO DAILY #30 cap 10/09/21 [Rx Last Taken Unknown] ondansetron HCl [Zofran] 4 mg PO Q8H PRN #14 tab 10/27/21 [Rx Last Taken Unknown] sucralfate [Carafate] 10 ml PO BID PRN #10 ml 10/27/21 [Rx Last Taken Unknown] Allergy/AdvReac Type Severity Reaction Status Date / Time morphine Allergy Hives Verified 10/27/21 21:04 amlodipine AdvReac Intermediate chest Verified 10/27/21 21:04 pain and cannot breathe carvedilol [From Coreg] AdvReac Intermediate throat Verified 10/27/21 21:04 closing up and chest pressure citalopram [From Celexa] AdvReac NAUSEATED Verified 10/27/21 21:04 AND IRRITABLE lisinopril AdvReac SOB, chest Verified 10/27/21 21:04 tightness,throat closing venlafaxine [From Effexor] AdvReac DIDN'T Verified 10/27/21 21:04 WORK Family History Father CAD (coronary artery disease) Myocardial infarction Surgical History H/O section History of cardiac catheterization (08/11/21) History of coronary artery stent placement (12/18/20) History of left heart catheterization (05/17/21) Social History household members: none Smoking Status: Former smoker quit date: 01/23/21 pack-years: 30 how long ago did patient quit smokin days ago alcohol intake: never substance use type: does not use caffeine: Yes Type: coffee Number of servings: 2 ROS ROS ED Constitutional Constitutional ED: Denies chills or fever(s) ENT ENT ED: Denies rhinorrhea or sore throat Cardiovascular Cardiovascular: Denies chest pain or palpitations Respiratory/Chest Respiratory/Chest: Denies cough or dyspnea Gastrointestinal Gastrointestinal: Reports abdominal pain and nausea; Denies constipation, diarrhea or vomiting Genitourinary Genitourinary ED: Denies dysuria or hematuria Musculoskeletal Musculoskeletal: Denies arthralgias or myalgias Integumentary Denies abscess or rash Neurologic Neurologic: Denies headache(s) or paresthesias EXAM Physical Exam Const Vital Signs: 10/27/21 21:01 10/27/21 21:03 Temperature 96.5 F L 96.5 F L Temperature Source Temporal Temporal Pulse Rate 79 79 Respiratory Rate 15 15 Blood Pressure 189/93 H 189/93 H Blood Pressure Mean 125 125 Pulse Ox 100 100 Oxygen Delivery Method Room Air Room Air Positive well nourished General Appearance ED: NAD; Negative for pallor HEENT Reports moist mucous membranes normocephalic and atraumatic Eyes PERRL and EOMs intact bilaterally Resp normal respiratory effort and clear to auscultation bilaterally Cardio regular rate and regular rhythm GI Palpation: tender epigastric Neuro Sensorium / Orientation: alert and oriented to person Psych mental status grossly normal and thought process normal Skin General Skin Exam: Negative for jaundice or pallor MDM MDM MDM Narrative Medical decision making narrative: Patient presenting with epigastric burning. She is a long history of this. She cannot take Protonix because she is allergic to it. She was referred to Dr. Magaña by her own GI doctor. Her last upper endoscopy was 2 months ago. CBC and CMP are unremarkable. Patient was given a GI cocktail which did help. She will be given Carafate for home. She is encouraged to make follow-up with Dr. Magaña. I do not believe she needs further work-up or imaging. Impression: 1. GERD Lab Data Labs: Laboratory Results - last 24 hr 10/27/21 10/27/21 10/27/21 22:21 22:35 22:35 WBC 7.1 RBC 4.47 Hgb 12.7 Hct 38.5 MCV 86.1 MCH 28.4 MCHC 33.0 RDW Std Deviation 41.1 RDW Coeff of Dona 13.0 Plt Count 279 MPV 10.4 Immature Gran % (Auto) 0.100 Neut % (Auto) 53.0 Lymph % (Auto) 38.0 [place] % (Auto) 6.3 Eos % (Auto) 2.0 Baso % (Auto) 0.6 Absolute Neuts (auto) 3.8 Absolute Lymphs (auto) 2.71 Nucleated RBC % 0 Sodium 139 Potassium 3.8 Chloride 106 Carbon Dioxide 25.0 Anion Gap 8 BUN 17 Creatinine 0.71 Estim Creat Clear Calc 70.81 Est GFR (MDRD) Af Amer 110 Est GFR (MDRD) Non-Af 91 BUN/Creatinine Ratio 24.0 H Glucose 95 Calcium 9.8 Total Bilirubin 0.30 AST 18 ALT 18 Alkaline Phosphatase 79 Total Protein 7.6 Albumin 3.6 Globulin 4.0 Albumin/Globulin Ratio 0.9 Urine Color Yellow Urine Clarity Clear Urine pH 6.0 Ur Specific [place] 1.015 Urine Protein Negative Urine Glucose (UA) Normal Urine Ketones 5 H Urine Occult Blood 25 H Urine Nitrite Negative Urine Bilirubin Negative Urine Urobilinogen Normal Ur Leukocyte Esterase Negative Urine RBC 0 SEEN Urine WBC 0-5 SEEN Ur Squamous Epith Cells 0 SEEN Urine Bacteria 0 SEEN Urine Mucus 0 SEEN Urine Yeast RARE Discharge Plan Triage Chief Complaint: Abd Pain ED Provider: Theodore Hines Dx/Rx/DC Orders Instructions: ED PEPTIC ULCER vs GASTRITIS Prescriptions: New sucralfate [Carafate] 100 mg/mL suspension 10 ml PO BID PRN (Reason: epigastric pain) Qty: 10 RF: 0 ondansetron HCl [Zofran] 4 mg tablet 4 mg PO Q8H PRN (Reason: nausea and vomiting) Qty: 14 RF: 0 No Action aspirin [Adult Low Dose Aspirin] 81 mg tablet,delayed release (DR/EC) 81 mg PO QODAY RF: 0 potassium chloride 10 mEq capsule, extended release 10 meq PO .weekly RF: 0 lorazepam [Ativan] 0.5 mg Tablet 0.5 mg PO BID PRN (Reason: Anxiety) RF: 0 lamotrigine 100 mg tablet 50 mg PO DAILY RF: 0 Breo Ellipta 200-25 mcg/dose blister with device 1 inh inhalation QDAY Qty: 60 RF: 6 Incruse Ellipta 62.5 mcg/actuation blister with device 1 inh inhalation QDAY Qty: 30 RF: 3 clopidogrel 75 mg tablet 75 mg PO DAILY RF: 0 fluticasone propionate [Flonase Allergy Relief] 50 mcg/actuation spray,suspension 2 spray intranasal DAILY Qty: 16 RF: 3 esomeprazole magnesium [Nexium] 20 mg capsule,delayed release(DR/EC) 20 mg PO DAILY Qty: 30 RF: 11 Primary Care Provider: Ellis Crandall Referrals: Ellis Crandall MD [Primary Care Provider] - Disposition Disposition: Home, Self Care
== END 2021-10-28 00:13 | disposition home or self-care (01) ==
PROVIDERS: Emergency Provider Student in an Organized Health Care Education/Training Program; PCP Family Medicine
DX: R10.9 Unspecified abdominal pain (principal); K21.9 Gastro-esophageal reflux disease without esophagitis; Z87.891 Personal history of nicotine dependence; I25.2 Old myocardial infarction; J44.9 Chronic obstructive pulmonary disease, unspecified; I25.10 Atherosclerotic heart disease of native coronary artery without angina pectoris; F31.9 Bipolar disorder, unspecified; F60.3 Borderline personality disorder; Z95.5 Presence of coronary angioplasty implant and graft; Z79.82 Long term (current) use of aspirin
CPT/HCPCS: 80053; 81001; 85025; 99283; A4216

== ENCOUNTER 2021-10-29 12:57 | Emergency (ER) | payer MEDICAID, SELFPAY ==
[2021-10-29 12:59] VITALS: BP 129/72; PULSE 75; RESP 18; TEMP 36.3; O2SAT 99; BMI 23.2
--- NOTE | 2021-10-29 14:25 | EKG12_ITS ---
Test Reason : CP Blood Pressure : / mmHG Vent. Rate : 066 BPM Atrial Rate : 066 BPM P-R Int : 158 ms QRS Dur : 088 ms QT Int : 404 ms P-R-T Axes : 079 073 065 degrees QTc Int : 423 ms Normal sinus rhythm Normal ECG Confirmed by GLEN KING, JOE ([id number]), newspaper managing editor FILI CASTILLO ([id number]) on 11/01/2021 11:01:02 AM Referred By: JOHN Confirmed By:JOE CARROLL MD
--- NOTE | 2021-10-29 14:25 | RAD_ITS ---
EXAM: XR CHEST, 1 VIEW CLINICAL INDICATION: Chest pain. TECHNIQUE: Frontal view of the chest. This report was created using [employer] report generation technology. COMPARISON: 09/03/2021. CTA chest 08/10/2021. FINDINGS: LUNGS AND PLEURAL SPACES: Pulmonary hyperinflation with mild flattening of the hemidiaphragms are unchanged. Multiple centrilobular cysts or obvious only on CTA chest of 08/10/2021. No suspicious infiltrates. No pneumothorax. No effusion. HEART: Unremarkable. Cardiac silhouette not enlarged. MEDIASTINUM: Central airways and mediastinal contour are unremarkable. BONES/JOINTS: Unremarkable. SOFT TISSUES: Unremarkable. RAD/Chest 1 View (Portable) IMPRESSION: 1. No acute findings in the chest. 2. Centrilobular cystic emphysema predominant type of COPD. This is obvious only on CTA chest of 08/10/2021. 3. No interval change when compared to 09/03/2021. Electronically Signed: Macario Nguyen MD at 15:11 EST , Service support ,
[2021-10-29 14:30] VITALS: O2SAT 100
--- NOTE | 2021-10-29 14:30 | EDS_ITS ---
HPI History of Present Illness Chief Complaint: Abd Pain Informant: patient Narrative Narrative: Patient is a 56-year-old female with extensive medical history including Takotsubo cardiomyopathy, STEMI requiring a stent, COPD, hyperlipidemia and chronic abdominal pain currently waiting for evaluation from GI presenting with chest pain. Patient states she had worsening abdominal pain for the past week. She was seen in the ER yesterday for that complaint. She has an appointment to see RICKY Gonzalez in 2 days. She was prescribed Carafate and Zofran. She does not feel like it is helping. This morning she woke up and had chest pain. She gets sharp pains in her chest that are fleeting. She states it feels like her chest is being squeezed of the muscles. She also has pain in both shoulder blades. She notes she had prior similar symptoms where she thought it was her heart but her work-ups been negative. She denies any nausea or vomiting. Her bowel movements have been normal with no black or blood in them. She notes her stools have been light-colored for the past month. She denies any urinary symptoms but does have some irritation in her vaginal area from wiping to collect urine samples. Patient notes that she had a recent echocardiogram that showed resolution of her Takotsubu and improvement of her EF. Work-up yesterday including a urinalysis, CMP and CBC was largely unremarkable. 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 Back pain Bipolar affective disorder Borderline personality disorder Cardiology follow-up encounter Chest pain of uncertain etiology Chest pain, non-cardiac Chronic left-sided thoracic back pain COPD (chronic obstructive pulmonary disease) Depression Difficulty swallowing Eloped from emergency department Essential (primary) hypertension Former smoker Gastric reflux GERD (gastroesophageal reflux disease) Headache History of echocardiogram History of Holter monitoring History of ST elevation myocardial infarction (STEMI) (08/10/21) Intermittent palpitations Ischemic cardiomyopathy Leg cramps Myocardial infarct Nicotine dependence 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) Post-menopausal Shortness of breath Shortness of breath on exertion Syncope Takotsubo cardiomyopathy (08/10/21) Wears glasses Home Medications lorazepam [Ativan] 0.5 mg PO BID PRN 06/19/21 [History Last Taken 1 Week Ago ~08/03/21] aspirin 81 mg tablet,delayed release 81 mg PO QODAY 07/13/21 [History Last Taken 08/07/21] lamotrigine 50 mg PO DAILY 08/10/21 [History Last Taken 1 Week Ago ~08/03/21] clopidogrel 75 mg tablet 75 mg PO DAILY 09/05/21 [History Last Taken Unknown] potassium chloride 10 mEq capsule,extended release 10 meq PO QODAY cap 09/12/21 [History Last Taken Unknown] ondansetron HCl [Zofran] 4 mg PO Q8H PRN #14 tab 10/27/21 [Rx Last Taken Unknown] sucralfate [Carafate] 10 ml PO BID PRN #10 ml 10/27/21 [Rx Last Taken Unknown] fluticasone propionate [Flonase Allergy Relief] 2 spray INTRANASAL DAILY PRN 10/29/21 [History Last Taken Unknown] Allergy/AdvReac Type Severity Reaction Status Date / Time morphine Allergy Hives Verified 10/29/21 12:58 amlodipine AdvReac Intermediate chest Verified 10/29/21 12:58 pain and cannot breathe carvedilol [From Coreg] AdvReac Intermediate throat Verified 10/29/21 12:58 closing up and chest pressure citalopram [From Celexa] AdvReac NAUSEATED Verified 10/29/21 12:58 AND IRRITABLE lisinopril AdvReac SOB, chest Verified 10/29/21 12:58 tightness,throat closing venlafaxine [From Effexor] AdvReac DIDN'T Verified 10/29/21 12:58 WORK Family History Father CAD (coronary artery disease) Myocardial infarction Surgical History H/O section History of cardiac catheterization (08/11/21) History of coronary artery stent placement (12/18/20) History of left heart catheterization (05/17/21) Social History household members: none Smoking Status: Former smoker quit date: 01/23/21 pack-years: 30 how long ago did patient quit smokin days ago alcohol intake: never substance use type: does not use caffeine: Yes Type: coffee Number of servings: 2 ROS ROS ED Constitutional Constitutional ED: Denies fatigue or weakness Eyes Eyes: Denies blurry vision ENT ENT ED: Denies rhinorrhea or sore throat Cardiovascular Cardiovascular: Reports chest pain; Denies palpitations Respiratory/Chest Respiratory/Chest: Denies cough or dyspnea Gastrointestinal Gastrointestinal: Reports abdominal pain; Denies constipation, diarrhea, melena, nausea or vomiting Genitourinary Genitourinary ED: Denies decreased urination or dysuria Musculoskeletal Musculoskeletal: Denies arthralgias, extremity pain or myalgias Integumentary Denies new lesions or rash Neurologic Neurologic: Denies paresthesias or weakness Psychiatric Psychiatric: Denies anxiety or depression Hematologic/Lymphatic Hematologic/Lymphatic: Denies easy bleeding or easy bruising EXAM Physical Exam Const Vital Signs: 10/29/21 12:59 10/29/21 14:18 10/29/21 14:30 Temperature 97.4 F L Temperature Source Temporal Pulse Rate 75 Respiratory Rate 18 Respiratory Effort Normal Non-Labored Respiratory Pattern Normal Blood Pressure 129/72 H Blood Pressure Mean 91 Pulse Ox 99 100 Oxygen Delivery Method Room Air Room Air 10/29/21 16:00 Temperature Temperature Source Pulse Rate 72 Respiratory Rate 16 Respiratory Effort Respiratory Pattern Blood Pressure 146/97 H Blood Pressure Mean 113 Pulse Ox 100 Oxygen Delivery Method Room Air Positive well nourished and well developed General Appearance ED: well developed HEENT Reports moist mucous membranes normocephalic and atraumatic Eyes PERRL and EOMs intact bilaterally Neck supple Chest Wall inspection of chest normal and palpation of chest normal Resp normal respiratory effort Effort and Inspection: respiratory distress Cardio regular rate, regular rhythm and no murmurs GI soft to palpation and non-distended GI Narrative: Tenderness palpation epigastric and left upper quadrant. No pulsatile mass Extremity normal to inspection General Extremety ED: Negative for edema or tenderness General Extremity: Negative for edema Neuro oriented x3 Sensorium / Orientation: awake and alert Psych mental status grossly normal Mood & Affect: anxious Skin no rashes or lesions noted MDM MDM MDM Narrative Medical decision making narrative: Patient is evaluated for ongoing epigastric abdominal pain and now chest pain. Patient states she is had chest pain like this in the past but it came back today. She is very anxious because earlier this year she had a STEMI as well as Takotsubo cardiomyopathy. She has a stent in place and her ejection fraction is returned to normal. She follows with Dr. Lopez. She has an appointment to see GI in 2 days. She had multiple ER visits over the past few months for similar complaints. CBC is normal. D-dimer is negative. She is low risk for PE and I do not think her pain is a PE. I do not think CT is indicated. BMP is normal. CMP is normal. High sensitive troponin is normal at 5. TSH is normal. Her lipase is normal. BNP is normal. Patient refuses repeat troponin. She declined Pepcid. She does not want an IV. She is hemodynamically stable in the ER. She is quite anxious. I do wonder if there could be a component of somatization causing her symptoms. Patient declines any muscle relaxers stating that she thinks the muscle relaxers will cause her to have a heart attack earlier this year. I am not sure what to do to address her pain and she is refusing all of my interventions so patient will be discharged home without any new prescriptions. She is encouraged to keep her follow-up appointments. Counseled on return precautions. Lab Data Attestation: I reviewed the patient's lab results. Labs: Laboratory Results - last 24 hr 10/29/21 10/29/21 10/29/21 14:40 14:40 14:40 WBC 4.6 RBC 4.80 Hgb 13.5 Hct 41.6 MCV 86.7 MCH 28.1 MCHC 32.5 RDW Std Deviation 41.1 RDW Coeff of Dona 13.0 Plt Count 296 MPV 10.5 Immature Gran % (Auto) 0.200 Neut % (Auto) 54.6 Lymph % (Auto) 37.1 [place] % (Auto) 6.1 Eos % (Auto) 0.9 Baso % (Auto) 1.1 H Absolute Neuts (auto) 2.5 Absolute Lymphs (auto) 1.71 Nucleated RBC % 0 PT INR D-Dimer Quant (PE/DVT) Sodium 139 Potassium 3.9 Chloride 106 Carbon Dioxide 23.0 Anion Gap 10 BUN 15 Creatinine 0.69 Estim Creat Clear Calc 72.86 Est GFR (MDRD) Af Amer 114 Est GFR (MDRD) Non-Af 94 BUN/Creatinine Ratio 21.8 H Glucose 84 Calcium 10.4 H Magnesium 2.1 Total Bilirubin 0.50 Direct Bilirubin 0.09 AST 18 ALT 17 Alkaline Phosphatase 67 Troponin I High Sens 5 B-Natriuretic Peptide Total Protein 7.5 Albumin 3.5 Globulin 4.0 Lipase 119 TSH 0.39 10/29/21 10/29/21 14:40 14:40 WBC RBC Hgb Hct MCV MCH MCHC RDW Std Deviation RDW Coeff of Dona Plt Count MPV Immature Gran % (Auto) Neut % (Auto) Lymph % (Auto) [place] % (Auto) Eos % (Auto) Baso % (Auto) Absolute Neuts (auto) Absolute Lymphs (auto) Nucleated RBC % PT 13.1 INR 1.1 D-Dimer Quant (PE/DVT) <= 0.27 Sodium Potassium Chloride Carbon Dioxide Anion Gap BUN Creatinine Estim Creat Clear Calc Est GFR (MDRD) Af Amer Est GFR (MDRD) Non-Af BUN/Creatinine Ratio Glucose Calcium Magnesium Total Bilirubin Direct Bilirubin AST ALT Alkaline Phosphatase Troponin I High Sens B-Natriuretic Peptide 8.0 Total Protein Albumin Globulin Lipase TSH Radiography Diagnostic Testing: Clinical Impression(s) from Imaging Studies Chest X-Ray 10/29/21 14:25 IMPRESSION: 1. No acute findings in the chest. 2. Centrilobular cystic emphysema predominant type of COPD. This is obvious only on CTA chest of 08/10/2021. 3. No interval change when compared to 09/03/2021. Electronically Signed: Macario Nguyen MD at 15:11 EST , Service support , Rhythm Strip Rhythm Strip: Sinus Rhythm Rate: 66 Ectopy: None EKG Initial EKG: Attestation: I personally reviewed and interpreted this EKG as follows: Interpretation: Sinus Rhythm Comments: Normal sinus rhythm and rate of 66 Normal axis Normal intervals Normal ST segments Discharge Plan Triage Chief Complaint: Abd Pain Other Complaint: Chest Pain ED Provider: Naila Bacon Dx/Rx/DC Orders Clinical Impression: Chest pain, Epigastric abdominal pain Instructions: ED Abdominal Pain Unkn Cause Fem, ED Chest Pain, Uncertain Cause Prescriptions: No Action aspirin [Adult Low Dose Aspirin] 81 mg tablet,delayed release (DR/EC) 81 mg PO QODAY RF: 0 potassium chloride 10 mEq capsule, extended release 10 meq PO QODAY RF: 0 lorazepam [Ativan] 0.5 mg Tablet 0.5 mg PO BID PRN (Reason: Anxiety) RF: 0 lamotrigine 100 mg tablet 50 mg PO DAILY RF: 0 sucralfate [Carafate] 100 mg/mL suspension 10 ml PO BID PRN (Reason: epigastric pain) Qty: 10 RF: 0 ondansetron HCl [Zofran] 4 mg tablet 4 mg PO Q8H PRN (Reason: nausea and vomiting) Qty: 14 RF: 0 fluticasone propionate [Flonase Allergy Relief] 50 mcg/actuation spray,suspension 2 spray intranasal DAILY PRN (Reason: Allergy Symptoms) RF: 0 clopidogrel 75 mg tablet 75 mg PO DAILY RF: 0 Primary Care Provider: Ellis Crandall Referrals: Ellis Crandall MD [Primary Care Provider] - Activity Restrictions/Additional Instructions: Your work-up was normal today. The cause of your pain is not clear. At this time I do think you are safe to follow-up with your receiving coordinator and your GI doctor. Please return the emergency room if you develop any change in your symptoms. Disposition Disposition: Home, Self Care
[2021-10-29 15:21] LABS: Absolute Lymphocyte Count 1.71 X10^3/uL (0.83-4.51); Absolute Neutrophil Count 2.5 X10^3/uL (2.0-7.7); Basophil# 0.05 X10^3/uL; Basophil% 1.1 % (0-1); Eosinophil# 0.04 X10^3/uL; Eosinophils% 0.9 % (0-5); Hematocrit 41.6 % (37-47); Hemoglobin 13.5 g/dL (12.0-15.0); Lymphocyte # 1.71 X10^3/ul (0.83-4.51); Lymphocyte % 37.1 % (19-41); Mean Corp Hgb Conc 32.5 g/dL (32-36); Mean Corpuscular Hgb 28.1 pg (27.0-32.0); Mean Corpuscular Volume 86.7 fL (81-99); Mean Platelet Vol. 10.5 fl (6.2-12.0); Monocyte# 0.28 X10^3/uL; Monocyte% 6.1 % (0-10); NRBC Flagged by Analyzer 0 % (0-5); Neutrophil # 2.52 X10^3/uL (2.7-7.7); Neutrophil % 54.6 % (47-70); Platelet Count 296 K/mm3 (150-450); RBC Distribution Width SD 41.1 fl (35.1-43.9); White Blood Count 4.6 K/mm3 (4.4-11.0)
[2021-10-29 15:30] LABS: International Normalized Ratio 1.1; Prothrombin Time (Protime)PT. 13.1 SECONDS (11.7-14.9)
[2021-10-29 15:42] LABS: AST(SGOT) 18 U/L (15-37); Alanine Aminotransfer ALT/SGPT 17 U/L (13-56); Albumin, Serum 3.5 g/dL (3.2-5.0); Alkaline Phosphatase 67 U/L (45-117); Bilirubin, Direct 0.09 mg/dL (0.00-0.30); Protein, Total 7.5 g/dL (6.4-8.2)
[2021-10-29 16:00] VITALS: BP 146/97; PULSE 72; RESP 16; O2SAT 100
[2021-10-29 16:10] LABS: Anion Gap 10 (5-15); BUN 15 mg/dL (7-18); BUN/Creat Ratio 21.8 RATIO (10-20); Calcium,Total 10.4 mg/dL (8.5-10.1); Chloride 106 mmol/L (98-107); Creatinine, Serum 0.69 mg/dL (0.55-1.02); EST Glomerular Filtration Rate 94 mL/min (>60); Est Glom Filt Rate - Afr Amer 114 mL/min (>60); Estimated Creatinine Clearance 72.86 ml/min; Glucose 84 mg/dL (74-106); Lipase 119 U/L (73-393); Magnesium 2.1 mg/dL (1.6-2.6); Potassium 3.9 mmol/L (3.5-5.1); Sodium Level 139 mmol/L (136-145); Thyroid Stim Hormone (TSH) 0.39 uIU/mL (0.358-3.74); Troponin-I HS 5 pg/mL (3.0-54.0)
[2021-10-29 16:12] LABS: D-Dimer Quantitative (DVT/PE) <= 0.27 FEU/ug/m (0.27-0.49)
[2021-10-29 17:28] VITALS: BP 138/95; PULSE 68; RESP 16; O2SAT 100
--- NOTE | 2021-10-29 17:28 | ED.RN ---
REVIEWED D/C INSTRUCTIONS, FOLLOW UP CARE, AND S/S THAT WOULD WARRANT A RETURN TO THE ED WITH PT. PT VERBALIZED AN UNDERSTANDING AND DENIES FURTHER QUESTIONS FOR THIS RN. PT SKIN P/W/D, RESP EVEN AND UNLABORED, PT A&O X 3, NO DISTRESS NOTED. PT AMBULATED OUT OF ED, GAIT STEADY.
== END 2021-10-29 17:35 | disposition home or self-care (01) ==
PROVIDERS: Emergency Provider Emergency Medicine; PCP Family Medicine
DX: R07.9 Chest pain, unspecified (principal); R10.13 Epigastric pain; J44.9 Chronic obstructive pulmonary disease, unspecified; E78.5 Hyperlipidemia, unspecified; I25.2 Old myocardial infarction; G89.29 Other chronic pain; Z87.891 Personal history of nicotine dependence; Z95.5 Presence of coronary angioplasty implant and graft; F31.9 Bipolar disorder, unspecified; F60.3 Borderline personality disorder; I25.10 Atherosclerotic heart disease of native coronary artery without angina pectoris; K21.9 Gastro-esophageal reflux disease without esophagitis; Z79.82 Long term (current) use of aspirin
CPT/HCPCS: 36415; 71045; 80048; 80076; 83690; 83735; 83880; 84443; 84484; 85025; 85379; 85610; 93005; 96361; 96374; 99284; J3490

== ENCOUNTER 2021-10-30 23:55 | Emergency (ER) | payer MEDICAID, SELFPAY ==
[2021-10-30 23:58] VITALS: BP 160/93; PULSE 94; RESP 17; TEMP 2.7; TEMP 36.9; O2SAT 100; BMI 23.3
--- NOTE | 2021-10-31 01:01 | EDS_ITS ---
HPI HPI - GI History of Present Illness Chief Complaint: Abd Pain Detail of Chief Complaint: Spitting small amounts of blood. Informant: patient Abdominal Pain/Flank Pain Onset: Today and Hours Context: Gradual Onset Timing: Intermittent Current Severity: Gone Maximum Severity: Mild Nausea/Vomiting/Emesis GI Symptom: Negative for Nausea and Vomiting Diarrhea/Melena/Hematochezia GI Symptom: Negative for Diarrhea, Melena and Hematochezia Associated Symptoms Associated Symptoms: Negative for Dysuria and Frequency Narrative Narrative: 56-year-old female history of prior ND with cardiac stents on Plavix. Said today she was spitting very small amounts of blood. No clots. No chest pain or shortness of breath. No black or bloody stools. Said recently she has been evaluating her emergency department twice in the last week had normal labs. She was placed on Carafate and has appointment to see her GI Dr. Friend tomorrow. Today she had very small amounts of blood but was not throwing it up and has not passed any in her stool. 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 Back pain Bipolar affective disorder Borderline personality disorder Cardiology follow-up encounter Chest pain of uncertain etiology Chest pain, non-cardiac Chronic left-sided thoracic back pain COPD (chronic obstructive pulmonary disease) Depression Difficulty swallowing Eloped from emergency department Essential (primary) hypertension Former smoker Gastric reflux GERD (gastroesophageal reflux disease) Headache History of echocardiogram History of Holter monitoring History of ST elevation myocardial infarction (STEMI) (08/10/21) Intermittent palpitations Ischemic cardiomyopathy Leg cramps Myocardial infarct Nicotine dependence 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) Post-menopausal Shortness of breath Shortness of breath on exertion Syncope Takotsubo cardiomyopathy (08/10/21) Wears glasses Home Medications lorazepam [Ativan] 0.5 mg PO BID PRN 06/19/21 [History Last Taken 1 Week Ago ~08/03/21] aspirin 81 mg tablet,delayed release 81 mg PO QODAY 07/13/21 [History Last Taken 08/07/21] lamotrigine 50 mg PO DAILY 08/10/21 [History Last Taken 1 Week Ago ~08/03/21] clopidogrel 75 mg tablet 75 mg PO DAILY 09/05/21 [History Last Taken Unknown] potassium chloride 10 mEq capsule,extended release 10 meq PO QODAY cap 09/12/21 [History Last Taken Unknown] ondansetron HCl [Zofran] 4 mg PO Q8H PRN #14 tab 10/27/21 [Rx Last Taken Unknown] sucralfate [Carafate] 10 ml PO BID PRN #10 ml 10/27/21 [Rx Last Taken Unknown] fluticasone propionate [Flonase Allergy Relief] 2 spray INTRANASAL DAILY PRN 10/29/21 [History Last Taken Unknown] Allergy/AdvReac Type Severity Reaction Status Date / Time morphine Allergy Hives Verified 10/31/21 00:01 amlodipine AdvReac Intermediate chest Verified 10/31/21 00:01 pain and cannot breathe carvedilol [From Coreg] AdvReac Intermediate throat Verified 10/31/21 00:01 closing up and chest pressure citalopram [From Celexa] AdvReac NAUSEATED Verified 10/31/21 00:01 AND IRRITABLE lisinopril AdvReac SOB, chest Verified 10/31/21 00:01 tightness,throat closing venlafaxine [From Effexor] AdvReac DIDN'T Verified 10/31/21 00:01 WORK Family History Father CAD (coronary artery disease) Myocardial infarction Surgical History H/O section History of cardiac catheterization (08/11/21) History of coronary artery stent placement (12/18/20) History of left heart catheterization (05/17/21) Social History household members: none Smoking Status: Former smoker quit date: 01/23/21 pack-years: 30 how long ago did patient quit smokin days ago alcohol intake: never substance use type: does not use caffeine: Yes Type: coffee Number of servings: 2 ROS ROS ED ROS Narrative Denies. Review of Systems ROS Unobtainable: Denies due to encephalopathy Constitutional Constitutional ED: Denies fever(s) ENT ENT ED: Denies ear pain Cardiovascular Cardiovascular: Denies chest pain Respiratory/Chest Respiratory/Chest: Denies dyspnea Gastrointestinal Gastrointestinal: Reports abdominal pain; Denies constipation, diarrhea, melena, nausea or vomiting Genitourinary Genitourinary ED: Denies dysuria Musculoskeletal Musculoskeletal: Denies myalgias Integumentary Denies rash Neurologic Neurologic: Denies headache(s) Psychiatric Psychiatric: Denies depression Endocrine Endocrinology: Denies polyuria Hematologic/Lymphatic Hematologic/Lymphatic: Denies easy bruising Allergic/Immunologic Allergic/Immunologic ED: Denies urticaria EXAM Physical Exam Narrative Exam Narrative: 36-year-old female no acute distress vital signs stable afebrile. Pulse ox 9% on room air no signs hypoxia. HEENT exam unremarkable. Neck nontender no JVD. Lungs clear to auscultation bilaterally. Heart regular rhythm rate about 90 no murmur. Abdomen soft nondistended normal bowel sounds no peritoneal signs. Moving all 4 extremities. Calves nontender no edema or cords neurologically she is awake alert with no focal motor deficits. Benign exam. Clinically patient is mildly anxious. Const Vital Signs: 10/30/21 23:58 Temperature 36.9 F L Temperature Source Oral Pulse Rate 94 Respiratory Rate 17 Blood Pressure 160/93 H Blood Pressure Mean 115 Pulse Ox 100 Oxygen Delivery Method Room Air Positive well nourished and well developed; Negative for obese, cachectic, contractures or unkempt General Appearance ED: well developed and NAD; Negative for unkempt, cachectic, contractures or pallor Nutritional Appearance: Negative for cachectic or obese HEENT Reports moist mucous membranes normocephalic and atraumatic Eyes PERRL and EOMs intact bilaterally Neck no lymphadenopathy, supple and no JVD General: Negative for tenderness Resp normal respiratory effort and clear to auscultation bilaterally Auscultation: Negative for rales, rhonchi or wheezes Cardio regular rate, regular rhythm, S1 normal heart sound, S2 normal heart sound and no murmurs GI non-tender, non-distended and no masses Auscultation: normoactive bowel sounds Palpation: soft; Negative for tender, guarding or rigid Back/Spine no CVA tenderness General Back: Negative for CVA tenderness Extremity full ROM General Extremety ED: Negative for edema or tenderness General Extremity: Negative for edema Neuro moves all extremities Sensorium / Orientation: alert, oriented to person, oriented to place and oriented to time; Negative for orientation impaired, confused, lethargic or stuporous Motor Exam: strength 5/5 throughout Psych mental status grossly normal and thought process normal Appearance: Negative for unkempt Skin no wounds General Skin Exam: Negative for jaundice or pallor Lesions: no lesions Rashes: no rashes MDM MDM MDM Narrative Medical decision making narrative: Middle-aged female no acute distress. Had very very small amounts of spitting blood tonight. Exam is benign. She has had 2 recent evaluation with normal labs. She will follow up with her GI doctor she has appointment tomorrow. Lab Data Attestation: I reviewed the patient's lab results. Discharge Plan Triage Chief Complaint: Abd Pain ED Provider: Yonas Guzman Dx/Rx/DC Orders Clinical Impression: Hemoptysis Instructions: ED Hemoptysis Prescriptions: No Action aspirin [Adult Low Dose Aspirin] 81 mg tablet,delayed release (DR/EC) 81 mg PO QODAY RF: 0 potassium chloride 10 mEq capsule, extended release 10 meq PO QODAY RF: 0 lorazepam [Ativan] 0.5 mg Tablet 0.5 mg PO BID PRN (Reason: Anxiety) RF: 0 lamotrigine 100 mg tablet 50 mg PO DAILY RF: 0 sucralfate [Carafate] 100 mg/mL suspension 10 ml PO BID PRN (Reason: epigastric pain) Qty: 10 RF: 0 ondansetron HCl [Zofran] 4 mg tablet 4 mg PO Q8H PRN (Reason: nausea and vomiting) Qty: 14 RF: 0 fluticasone propionate [Flonase Allergy Relief] 50 mcg/actuation spray,suspension 2 spray intranasal DAILY PRN (Reason: Allergy Symptoms) RF: 0 clopidogrel 75 mg tablet 75 mg PO DAILY RF: 0 Primary Care Provider: Ellis Crandall Referrals: Ellis Crandall MD [Primary Care Provider] - Activity Restrictions/Additional Instructions: Keep your appointment with Friend tomorrow. Continue your current medications. Disposition Disposition: Home, Self Care
== END 2021-10-31 01:17 | disposition home or self-care (01) ==
LOC: ED 10-31 01:13
PROVIDERS: Emergency Provider Emergency Medicine; PCP Family Medicine
DX: R04.2 Hemoptysis (principal); I25.10 Atherosclerotic heart disease of native coronary artery without angina pectoris; J44.9 Chronic obstructive pulmonary disease, unspecified; K21.9 Gastro-esophageal reflux disease without esophagitis; F31.9 Bipolar disorder, unspecified; F60.3 Borderline personality disorder; I25.2 Old myocardial infarction; Z79.02 Long term (current) use of antithrombotics/antiplatelets; Z79.82 Long term (current) use of aspirin; Z79.899 Other long term (current) drug therapy; Z87.891 Personal history of nicotine dependence; Z95.5 Presence of coronary angioplasty implant and graft
CPT/HCPCS: 99282

== ENCOUNTER → 2021-11-08 09:22 | Outpatient (CLI) | payer MEDICAID, SELFPAY ==
--- NOTE | 2021-11-10 07:26 | PFT ---
INTRODUCTION: The patient is a 56-year-old female that presents for pulmonary function studies secondary to a diagnosis of COPD. Respiratory therapy reported good patient effort. Bronchodilators phrase during testing. INTERPRETATION: Forced expiration spirometry demonstrates the presence of a mild large airways obstructive ventilatory defect. There was no significant response to aerosolized bronchodilators, based upon strict ATS criteria. Spirograms are of good quality but do not plateau indicating slow emptying of the lungs. Body plethysmography was performed and revealed an elevated TLC and RV, indicative of underlying hyperinflation and air trapping. Diffusing capacity by single breath CO is at the lower limits of normal. IMPRESSION: Irreversible mild large airways obstructive ventilatory defect with associated hyperinflation and air trapping.
== END ==
PROVIDERS: PCP Family Medicine; Referring Provider Internal Medicine Critical Care Medicine; Visit Provider Internal Medicine Critical Care Medicine
DX: J44.9 Chronic obstructive pulmonary disease, unspecified (principal)
CPT/HCPCS: 94060; 94726; 94729

== ENCOUNTER 2021-11-08 17:48 | Emergency (ER) | payer MEDICAID, SELFPAY ==
[2021-11-08 17:48] VITALS: BP 155/86; PULSE 81; RESP 15; TEMP 36.5; O2SAT 100; BMI 23.1
--- NOTE | 2021-11-08 17:56 | EKG12_ITS ---
Test Reason : PALPS Blood Pressure : / mmHG Vent. Rate : 078 BPM Atrial Rate : 078 BPM P-R Int : 152 ms QRS Dur : 090 ms QT Int : 384 ms P-R-T Axes : 074 068 084 degrees QTc Int : 437 ms Normal sinus rhythm Nonspecific ST abnormality Abnormal ECG Confirmed by GLEN KING, JOE ([id number]), non linear editor FILI CASTILLO ([id number]) on 11/10/2021 10:43:06 AM Referred By: CARMENZA/NOE Confirmed By:JOE CARROLL MD
--- NOTE | 2021-11-08 18:00 | RAD_ITS ---
STUDY: X-RAY CHEST REASON FOR EXAM: Female, 56 years old. Notes Other, pt with cp, sob, nausea, heart palps numbness in left arm and now into shoulder on and off since last night chest pain TECHNIQUE: XR Chest 1 View COMPARISON: .04.14 FINDINGS: There is no demonstrated pleural abnormality. Normal size heart. Normal mediastinum and kirsten. Normal visualized pulmonary arteries. There is atherosclerotic calcification of the aortic arch with tortuosity. There are diffuse degenerative changes of the visualized thoracic spine. There is degenerative osteoarthritis of the bilateral shoulders. There is no demonstrated abnormality of the visualized soft tissue structures of the upper abdomen. RAD/Chest 1 View (Portable) IMPRESSION: There has been no change in the appearance of the chest since the prior study. Electronically Signed: Asim Hudson MD at 18:23 EST , Service support ,
[2021-11-08 18:02] VITALS: O2SAT 100
[2021-11-08 18:03] LABS: Absolute Lymphocyte Count 2.75 X10^3/uL (0.83-4.51); Absolute Neutrophil Count 3.7 X10^3/uL (2.0-7.7); Basophil# 0.05 X10^3/uL; Basophil% 0.7 % (0-1); Eosinophils% 1.4 % (0-5); Hematocrit 40.1 % (37-47); Hemoglobin 13.4 g/dL (12.0-15.0); Lymphocyte # 2.75 X10^3/ul (0.83-4.51); Lymphocyte % 38.7 % (19-41); Mean Corp Hgb Conc 33.4 g/dL (32-36); Mean Corpuscular Volume 86.8 fL (81-99); Mean Platelet Vol. 10.4 fl (6.2-12.0); Monocyte# 0.46 X10^3/uL; Monocyte% 6.5 % (0-10); NRBC Flagged by Analyzer 0 % (0-5); Neutrophil # 3.74 X10^3/uL (2.7-7.7); Neutrophil % 52.6 % (47-70); Platelet Count 308 K/mm3 (150-450); RBC Distribution Width CV 13.1 % (11.6-14.6); Red Blood Count 4.62 M/mm3 (4.2-5.4); White Blood Count 7.1 K/mm3 (4.4-11.0)
[2021-11-08 18:26] LABS: Anion Gap 4 (5-15); BUN 23 mg/dL (7-18); BUN/Creat Ratio 28.6 RATIO (10-20); Calcium,Total 9.8 mg/dL (8.5-10.1); Chloride 108 mmol/L (98-107); EST Glomerular Filtration Rate 79 mL/min (>60); Est Glom Filt Rate - Afr Amer 95 mL/min (>60); Estimated Creatinine Clearance 62.84 ml/min; Glucose 99 mg/dL (74-106); Potassium 3.7 mmol/L (3.5-5.1); Sodium Level 140 mmol/L (136-145); Troponin-I HS 4 pg/mL (3.0-54.0)
--- NOTE | 2021-11-08 18:47 | ED.VIS.CHEST ---
HPI History of Present Illness Chief Complaint: Chest Pain Narrative Narrative: 56-year-old female presenting with left upper chest wall pain. She states that she think she is had some radiation down her left arm. She is unsure if this is her anxiety or actual cardiac chest pain. She states it felt similar to previous history of GA. Patient denies any trauma. She has chronic shortness of breath secondary to asthma COPD overlap syndrome. She was seen today for this outpatient and it is noted that she was not using her medications as directed. Patient is not had fever, chills, cough. 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 Back pain Bipolar affective disorder Borderline personality disorder Cardiology follow-up encounter Chest pain of uncertain etiology Chest pain, non-cardiac Chronic left-sided thoracic back pain COPD (chronic obstructive pulmonary disease) Depression Difficulty swallowing Eloped from emergency department Essential (primary) hypertension Former smoker Gastric reflux GERD (gastroesophageal reflux disease) Headache History of echocardiogram History of Holter monitoring History of ST elevation myocardial infarction (STEMI) (08/10/21) Intermittent palpitations Irritable bowel syndrome with diarrhea Ischemic cardiomyopathy Leg cramps Myocardial infarct Nicotine dependence 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) Post-menopausal Shortness of breath Shortness of breath on exertion Syncope Takotsubo cardiomyopathy (08/10/21) Wears glasses Home Medications lorazepam [Ativan] 0.5 mg PO BID PRN 06/19/21 [History Last Taken 1 Week Ago ~08/03/21] aspirin 81 mg tablet,delayed release 81 mg PO QODAY 07/13/21 [History Last Taken 08/07/21] lamotrigine 50 mg PO DAILY 08/10/21 [History Last Taken 1 Week Ago ~08/03/21] potassium chloride 10 mEq capsule,extended release 10 meq PO QODAY cap 09/12/21 [History Last Taken Unknown] ondansetron HCl [Zofran] 4 mg PO Q8H PRN #14 tab 10/27/21 [Rx Last Taken Unknown] sucralfate [Carafate] 10 ml PO BID PRN #10 ml 10/27/21 [Rx Last Taken Unknown] fluticasone propionate [Flonase Allergy Relief] 2 spray INTRANASAL DAILY PRN 10/29/21 [History Last Taken Unknown] bisacodyl 5 mg tablet,delayed release 5 mg PO ONCE #4 tab 10/31/21 [Rx Last Taken Unknown] misoprostol 100 mcg tablet 100 mcg PO .QID #120 tab 10/31/21 [Rx Last Taken Unknown] polyethylene glycol 3350 17 gram/dose oral powder 17 g PO DAILY #238 g 10/31/21 [Rx Last Taken Unknown] Allergy/AdvReac Type Severity Reaction Status Date / Time morphine Allergy Hives Verified 11/08/21 17:50 amlodipine AdvReac Intermediate chest Verified 11/08/21 17:50 pain and cannot breathe carvedilol [From Coreg] AdvReac Intermediate throat Verified 11/08/21 17:50 closing up and chest pressure citalopram [From Celexa] AdvReac NAUSEATED Verified 11/08/21 17:50 AND IRRITABLE lisinopril AdvReac SOB, chest Verified 11/08/21 17:50 tightness,throat closing venlafaxine [From Effexor] AdvReac DIDN'T Verified 11/08/21 17:50 WORK Family History Father CAD (coronary artery disease) Myocardial infarction Surgical History H/O section History of cardiac catheterization (08/11/21) History of coronary artery stent placement (12/18/20) History of left heart catheterization (05/17/21) Social History household members: none Smoking Status: Former smoker quit date: 01/23/21 pack-years: 30 how long ago did patient quit smokin days ago alcohol intake: never substance use type: does not use caffeine: Yes Type: coffee Number of servings: 2 ROS ROS ED Constitutional Constitutional ED: Denies chills or fever(s) Eyes Eyes: Denies blurry vision or change in vision ENT ENT ED: Denies rhinorrhea or sore throat Cardiovascular Cardiovascular: Reports as per HPI Respiratory/Chest Respiratory/Chest: Reports dyspnea; Denies cough Gastrointestinal Gastrointestinal: Denies abdominal pain, nausea or vomiting Genitourinary Genitourinary ED: Denies dysuria or hematuria Musculoskeletal Musculoskeletal: Denies arthralgias, myalgias or neck pain Integumentary Denies Abrasions or rash Neurologic Neurologic: Denies headache(s) or paresthesias Psychiatric Psychiatric: Reports anxiety; Denies suicidal ideation or suicidal thoughts EXAM Physical Exam Const Vital Signs: 11/08/21 17:48 11/08/21 18:02 11/08/21 19:01 Temperature 97.7 F L Temperature Source Temporal Pulse Rate 81 73 Respiratory Rate 15 16 Blood Pressure 155/86 H 143/75 H Blood Pressure Mean 109 97 Pulse Ox 100 100 98 Oxygen Delivery Method Room Air Room Air Room Air 11/08/21 19:59 Temperature Temperature Source Pulse Rate 69 Respiratory Rate 18 Blood Pressure 164/91 H Blood Pressure Mean 115 Pulse Ox 100 Oxygen Delivery Method Room Air Positive well nourished General Appearance ED: NAD; Negative for pallor HEENT Reports moist mucous membranes normocephalic and atraumatic Eyes PERRL and EOMs intact bilaterally Resp normal respiratory effort Effort and Inspection: respiratory distress Cardio regular rate and regular rhythm Neuro oriented x3 Sensorium / Orientation: awake and alert Psych Mood & Affect: anxious Skin General Skin Exam: Negative for jaundice or pallor Heart Score History: Slightly/Non-Suspicious ECG: Normal Age: >45 - <65 years Risk Factors: >/= 3 Risk Factors or History of CAD Troponin: </= Normal Limit Score: 3 MDM MDM MDM Narrative Medical decision making narrative: Patient presenting with chest pain which she states she is had on and off for about 24 hours. She also feels this may be due to anxiety. She does express that she is very anxious because she has had a heart attack in the past. EKG on my interpretation shows a normal sinus rhythm with ventricular rate of 78 bpm without sign of ischemic change. There is no significant interval change from her previous EKG October 29, 2021. Chest x-ray my interpretation shows no acute cardiopulmonary process. Radiologist agree. CBC is within normal limits. BMP shows normal renal function electrolytes. Initial high-sensitivity troponin is 4. Delta troponin is 4 therefore this rules out ACS. Patient will be discharged home in stable condition. Impression: Chest pain- noncardiac Lab Data Attestation: I reviewed the patient's lab results. Labs: Laboratory Results - last 24 hr 11/08/21 11/08/21 11/08/21 17:50 17:50 19:54 WBC 7.1 RBC 4.62 Hgb 13.4 Hct 40.1 MCV 86.8 MCH 29.0 MCHC 33.4 RDW Std Deviation 41.0 RDW Coeff of Dona 13.1 Plt Count 308 MPV 10.4 Immature Gran % (Auto) 0.100 Neut % (Auto) 52.6 Lymph % (Auto) 38.7 [place] % (Auto) 6.5 Eos % (Auto) 1.4 Baso % (Auto) 0.7 Absolute Neuts (auto) 3.7 Absolute Lymphs (auto) 2.75 Nucleated RBC % 0 Sodium 140 Potassium 3.7 Chloride 108 H Carbon Dioxide 28.0 Anion Gap 4 L BUN 23 H Creatinine 0.80 Estim Creat Clear Calc 62.84 Est GFR (MDRD) Af Amer 95 Est GFR (MDRD) Non-Af 79 BUN/Creatinine Ratio 28.6 H Glucose 99 Calcium 9.8 Troponin I High Sens 4 4 Radiography Diagnostic Testing: Clinical Impression(s) from Imaging Studies Chest X-Ray 11/08/21 18:00 IMPRESSION: There has been no change in the appearance of the chest since the prior study. Electronically Signed: Asim Hudson MD at 18:23 EST , Service support , Discharge Plan Triage Chief Complaint: Chest Pain ED Provider: Theodore Hines Dx/Rx/DC Orders Instructions: ED Chest Pain, Noncardiac Prescriptions: No Action aspirin [Adult Low Dose Aspirin] 81 mg tablet,delayed release (DR/EC) 81 mg PO QODAY RF: 0 potassium chloride 10 mEq capsule, extended release 10 meq PO QODAY RF: 0 misoprostol 100 mcg tablet 100 mcg PO .QID Qty: 120 RF: 2 bisacodyl 5 mg tablet,delayed release (DR/EC) 5 mg PO ONCE Qty: 4 RF: 0 polyethylene glycol 3350 [Miralax] 17 gram/dose powder 17 g PO DAILY Qty: 238 RF: 0 lorazepam [Ativan] 0.5 mg Tablet 0.5 mg PO BID PRN (Reason: Anxiety) RF: 0 lamotrigine 100 mg tablet 50 mg PO DAILY RF: 0 sucralfate [Carafate] 100 mg/mL suspension 10 ml PO BID PRN (Reason: epigastric pain) Qty: 10 RF: 0 ondansetron HCl [Zofran] 4 mg tablet 4 mg PO Q8H PRN (Reason: nausea and vomiting) Qty: 14 RF: 0 fluticasone propionate [Flonase Allergy Relief] 50 mcg/actuation spray,suspension 2 spray intranasal DAILY PRN (Reason: Allergy Symptoms) RF: 0 Primary Care Provider: Ellis Crandall Referrals: Ellis Crandall MD [Primary Care Provider] - Disposition Disposition: Home, Self Care
[2021-11-08 19:01] VITALS: BP 143/75; PULSE 73; RESP 16; O2SAT 98
[2021-11-08 19:59] VITALS: BP 164/91; PULSE 69; RESP 18; O2SAT 100
[2021-11-08 20:27] LABS: Troponin-I HS 4 pg/mL (3.0-54.0)
[2021-11-08 20:42] VITALS: BP 150/92; PULSE 78; RESP 16; O2SAT 100
== END 2021-11-08 20:43 | disposition home or self-care (01) ==
PROVIDERS: Emergency Provider Student in an Organized Health Care Education/Training Program; PCP Family Medicine
DX: R07.89 Other chest pain (principal); I25.10 Atherosclerotic heart disease of native coronary artery without angina pectoris; I25.2 Old myocardial infarction; J44.9 Chronic obstructive pulmonary disease, unspecified; Z87.891 Personal history of nicotine dependence; Z79.82 Long term (current) use of aspirin; K21.9 Gastro-esophageal reflux disease without esophagitis
CPT/HCPCS: 71045; 80048; 84484; 85025; 93005; 94060; 94726; 94729; 99284; A4216

== ENCOUNTER 2021-11-29 07:10 | Day surgery (SDC) | payer MEDICAID, SELFPAY ==
[2021-11-29] VITALS (7 sets, daily range): BP systolic 98–127; BP diastolic 66–88; PULSE 74–91; RESP 16; TEMP 36.3–36.6; O2SAT 98–100; BMI 22.6
[2021-11-29] MEDS: Lactated Ringers 1,000 ML 15 ML IV (07:30)
--- NOTE | 2021-11-29 08:15 | IMM_PTH ---
PATIENT: SJ MOHAN LOC: [facility] U#:[id number] AGE/SX: 56/F ROOM: RE11/29/[address]: Dr. Aime Magaña DO : 1965 BED: DIS: 11/29/2021 SPEC #: [id number] RECD: 11/29/21 12:43 STATUS: CARSON MARIE #: [id number] [place]: 11/29/21 08:[address]: Aime Magaña DEPT: IMMUNOHISTOCHEMISTRY RECD BY: Joanna Alvarez ENTERED: 11/29/21 12:43 SP TYPE: IMMUNO OTHR DR: Dr. Ellis Crandall MD Tissues: B - Stomach, NOS Procedures: H Pylori (initial) P53 (initial) KI-67 (add) PHYSICIAN & INSTITUTION [place] [id number] SPECIMEN INFORMATION: Tissue Source: B ? Gastric antrum biopsy, D ? Distal esophagus biopsy Clinical Info: Epigastric abdominal pain Specimen Number: [id number] B & D CPT code: 55775 x2, 46974 METHODOLOGY: Deparaffinized sections of prefer/formalin-fixed tissue or PAP/DQ stained slides are incubated with monoclonal/polyclonal antibodies/oligonucleotide probes. Localization is made via biotin free immunoperoxidase method. Appropriate controls are performed and reacted as expected. Results on target cell population are indicated in the following table: RESULTS: ANTIBODY / CLONE RESULT Block B H Pylori (polyclonal) negative Block D P53 (DO-7) negative Ki-67 (30-9) positive, low These tests were developed and their performance characteristics determined by [facility]. They may not have been cleared or approved by the U.S. Food and Drug Administration. The FDA has determined that such clearance or approval is not necessary. The above immunohistochemical/dualISH markers are ordered and reviewed by the pathologist. INTERPRETATION: B. Gastric antrum, biopsy: Negative for Helicobacter pylori organisms. D. Distal esophagus, biopsy: No evidence of dysplasia. AM:isaias 12/01/2021
--- NOTE | 2021-11-29 08:15 | COLBX_PTH ---
PATIENT: SJ MOHAN LOC: [facility] U#:[id number] AGE/SX: 56/F ROOM: RE11/29/[address]: Dr. Aime Magaña DO : 1965 BED: DIS: 11/29/2021 SPEC #: [id number] RECD: 11/29/21 10:54 STATUS: CARSON SALAZAR #: [id number] [place]: 11/29/21 08:[address]: Aime Magaña DEPT: SURGICAL PATHOLOGY RECD BY: Selina Hollis ENTERED: 11/29/21 13:19 SP TYPE: COLON BX OTHR DR: Dr. Ellis Crandall MD Tissues: A - Duodenum, NOS B - Gastric mucous membrane C - Gastric mucous membrane D - Esophagus, NOS E - Cecum, NOS F - COLON BIOPSY Procedures: Special Stain Group II Surgery Specimen Level IV Alcian Blue/PAS (control) HEADER OPERATION: Colonoscopy, EGD ([facility] [place]) PRE-OP DIAGNOSIS: Epigastric abdominal pain TISSUE SUBMITTED: A ? Duodenum biopsy, B ? Gastric antrum biopsy for H. pylori and path, C ? Gastric body biopsy, D ? Distal esophagus biopsy, E ? Biopsy of cecum polyp, F ? Random colon biopsy MICROSCOPIC DIAGNOSIS A. Duodenum, biopsy: No pathologic change. B. Gastric antrum, biopsy: Minimal chronic inflammation. See comment. C. Gastric body, biopsy: Minimal chronic inflammation. D. Distal esophagus, biopsy: Gastroesophageal junctional mucosa with goblet cell metaplasia consistent with Mcdermott?s esophagus. No evidence of dysplasia. See comment. E. Cecal polyp, biopsy: Hyperplastic polyp. F. Colon, random biopsy: Focal ischemic change suspected. AM:isaias 11/30/2021 COMMENT B. The results of immunohistochemistry for Helicobacter pylori will be reported separately ([id number]). D. Alcian blue/PAS stain with matched control supports the above diagnosis. Immunohistochemistry ([id number]) for P53 and Ki-67 will be performed and results will be reported separately. MICROSCOPIC DESCRIPTION Slides are reviewed. GROSS DESCRIPTION A - Received in fixative is one container labeled with the patient's name and designated duodenum biopsy. The specimen consists of multiple irregular fragments of light rm soft tissue that in aggregate measure 1 x 0.5 x 0.1 cm. The specimen is totally submitted in one cassette. B - Received in fixative is one container labeled with the patient's name and designated gastric antrum biopsy. The specimen consists of multiple irregular fragments of light rm soft tissue that in aggregate measure 0.8 x 0.2 x 0.1 cm. The specimen is totally submitted in one cassette. C - Received in fixative is one container labeled with the patient's name and designated gastric body biopsy. The specimen consists of one irregular fragment of light rm soft tissue that measures 0.4 x 0.4 x 0.1 cm. Also present in the container is a piece of rm soft tissue measuring 0.1 cm in greatest dimension. The specimen is totally submitted in one cassette. D - Received in fixative is one container labeled with the patient's name and designated distal esophagus biopsy. The specimen consists of multiple irregular fragments of light rm soft tissue that in aggregate measure 1 x 0.3 x 0.1 cm. The specimen is totally submitted in one cassette. E - Received in fixative is one container labeled with the patient's name and designated biopsy of cecum polyp. The specimen consists of one irregular fragment of light rm soft tissue that measures 0.2 x 0.1 x 0.1 cm. The specimen is totally submitted in one cassette. F - Received in fixative is one container labeled with the patient's name and designated random colonic biopsy. The specimen consists of multiple irregular fragments of light rm soft tissue that in aggregate measure 1.5 x 1 x 0.1 cm. The specimen is totally submitted in one cassette. / MACI:isaias 11/29/21 TC:3 CPT: 20100 x6, 57588
--- NOTE | 2021-11-29 08:22 | PCM.HP.BLA ---
History and Physical Date of Admission: 11/29/21 6 F who presents to the office today for evaluation of abdominal pain. She has been seeing Dr. Schulz previously and he referred to this office. Feels the following symptoms have started since her heart attack 12/19/2020 and she was started on blood thinners (plavix). RUQ abdominal pain and throughout back. Epigastric it feels like someone is pulling something down. Lump in her throat. Difficulty breathing after she has intake that lasts throughout the day. Has noted blood in her sputum. [facility] provider has noticed blood in her urine. Has attempted low acid diet without effect. PPI history has made her feel worse. Mylanta ineffective, Pepcid ineffective, GI cocktail. Protonix, nexium, pepcid gave her heart palpitation. Currently taking liquid Carafate (pills gave her headaches) which is providing minimal relief of stomach burn. Does not feel her anxiety is well managed. Sees provider Nereji lamotrigine daily and Ativan PRN, taking at least once a day. She presented to [facility] ED 09/30/21 due to localized pain in the epigastrium with inability to eat. She was given GI cocktail. Previous workups from ED visits reviewed and she was discharged home. She presented again 10/28/21 with similar symptoms and GI cocktail, Zofran and Carafate, provided and discharged home. She presented to [facility] ED 10/29/21 with similar symptoms and the addition of chest pain. Workup did not find acute concerns by the physician, though it was noted she was very anxious. 10/31/21 she presented to [facility] ED due to spitting up small amounts of blood without clots, no emesis. No acute findings following workup and she was discharged home. EGD performed 08/14/[address] Melvin with findings of Non-severe reflux esophagitis. Gastritis. Biopsy ? antrum, minimal chronic inflammation. Esophagus, extensive intestinal metaplasia consistent with Mcdermott?s esophagus, moderate chronic inflammation Upper GI series performed 03/31/21. With normal motility, distention and without abnormality. CT abd without contrast performed 03/26/21. Severely emphysematous lung bases. Diseased coronary arteries with stents in RCA. Multiple hepatic rounded hypodense lesions presumed to be cysts. ROS Const Constitutional: Positive for fatigue Eyes Eyes: Positive for blurry vision ENT ENT: Positive for ear or mastoid pain, hearing loss, nasal congestion, difficulty swallowing, hoarseness and sore throat Cardio Cardiology: Positive for chest pain at rest, shortness of breath and dyspnea on exertion Gastro GI: Positive for abdominal pain, bloating, change in bowel habits, constipation and difficulty swallowing Musc Musculoskeletal: Positive for back pain, numbness and tingling Skin Skin: Positive for itchy eyes Neuro Neurology: Positive for numbness and tingling Psych Psychiatric: Positive for anxiety, Positive for depression and Positive for paranoia Endo Endocrine: Positive for cold intolerance, fatigue and heat intolerance Aller/Imm Allergy/Immunologic: Positive for itchy eyes Exam Const General: cooperative and comfortable Nutritional Appearance: average body habitus and well nourished HENMT Head: normal to inspection Ears: hearing grossly normal bilaterally Nose: external nose normal Face and sinus: normal facial exam Mouth: oral mucosae normal Throat: posterior oropharynx normal Eyes General: appearance normal, both eyes and all related structures Neck Neck: normal visual inspection Chest Chest palpation & inspection: normal inspection of the chest and normal palpation of entire chest wall Resp Effort & Inspection: normal respiratory effort Auscultation: Bilateral: Clear to Auscultation Cardio Palpation: normal PMI Rate: regular rate Rhythm: regular rhythm GI Inspection: normal to inspection Auscultation: normal bowel sounds Percussion: normal to percussion Palpation: no hepatosplenomegaly Skin General: no rashes or lesions noted Neuro General: patient alert Extrem General: normal to inspection Psych Affect: normal affect Quality Reporting Tobacco Screening ([facility] 138) Smoking Status: Former smoker Assessment and Plan Assessment and Plan (1) Epigastric abdominal pain: Status: Acute Orders: Orders: Colonoscopy Today EGD Today Plan - Dr. Salomon Friend, DO: I reviewed her previous upper endoscopy and it did show a lot of inflammation in the small bowel. Particularly the duodenum. I do not see biopsies from the duodenum. I suspect that is why she gets a little bit of improvement from the Carafate liquid therapy because it does treat the small bowel a little bit better than the colon. I will add misoprostol to her regimen to hopefully help with some of the inflammation is seen in her upper GI tract. She is intolerant to proton pump inhibitors so we cannot use those. We will have more recommendations after she undergoes upper endoscopy. (2) Irritable bowel syndrome with diarrhea: Status: Acute Plan - Dr. Salomon Friend, DO: I suspect that her diarrhea is from your bowel syndrome with diarrhea however I do not see any evaluation of the small bowel and or biopsies of the colon. We will perform colonoscopy with biopsies and biochemical analysis. Plan Details I have re-examined the patient. There are no clinical changes since date of exam.
--- NOTE | 2021-11-29 09:12 | OP.EGD_ITS ---
Patient Name: Erica Pedroza Procedure Date: 11/29/2021 8:23 AM Date of : 1965 Age: 56 Procedure: Upper GI endoscopy Indications: Epigastric abdominal pain, Mcdermott's esophagus Providers: Aime Magaña DO Medicines: See the Anesthesia note for documentation of the administered medications Patient Profile: This is a 56 year old female. Refer to note in patient chart for documentation of history and physical. Patient has symptoms of chronic abdominal cramping, chronic abdominal distention and chronic epigastric abdominal pain. Complications: No immediate complications. Procedure: Pre-Anesthesia Assessment: - Prior to the procedure, a History and Physical was performed, and patient medications and allergies were reviewed. The patient is competent. The risks and benefits of the procedure and the sedation options and risks were discussed with the patient. All questions were answered and informed consent was obtained. Patient identification and proposed procedure were verified by the physician in the pre-procedure area. Mental Status Examination: alert and oriented. Airway Examination: normal oropharyngeal airway and neck mobility. Respiratory Examination: clear to auscultation. CV Examination: normal. Prophylactic Antibiotics: The patient does not require prophylactic antibiotics. Prior Anticoagulants: The patient has taken no previous anticoagulant or antiplatelet agents. ASA Grade Assessment: II - A patient with mild systemic disease. After reviewing the risks and benefits, the patient was deemed in satisfactory condition to undergo the procedure. The anesthesia plan was to use moderate sedation / analgesia (conscious sedation). Immediately prior to administration of medications, the patient was re-assessed for adequacy to receive sedatives. The heart rate, respiratory rate, oxygen saturations, blood pressure, adequacy of pulmonary ventilation, and response to care were monitored throughout the procedure. The physical status of the patient was re-assessed after the procedure. After obtaining informed consent, the endoscope was passed under direct vision. Throughout the procedure, the patient's blood pressure, pulse, and oxygen saturations were monitored continuously. The colonoscope was introduced through the mouth, and advanced to the second part of duodenum. The upper GI endoscopy was accomplished without difficulty. The patient tolerated the procedure well. Moderate Sedation: Moderate (conscious) sedation was administered by the endoscopy nurse and supervised by the endoscopist. The patient's oxygen saturation, heart rate, blood pressure and response to care were monitored. Total physician intraservice time was 15 minutes. Scope In: 8:37:54 AM Scope Out: 8:45:30 AM Total Procedure Duration Time 0 hours 7 minutes 36 seconds Findings: LA Grade A (one or more mucosal breaks less than 5 mm, not extending between tops of 2 mucosal folds) esophagitis with no bleeding was found 34 to 36 cm from the incisors. Estimated blood loss was minimal. Biopsies were taken with a cold forceps for histology. Verification of patient identification for the specimen was done. Estimated blood loss was minimal. Patchy mildly erythematous mucosa without bleeding was found in the gastric body and in the gastric antrum. Biopsies were taken with a cold forceps for histology. Verification of patient identification for the specimen was done. Estimated blood loss was minimal. The second portion of the duodenum was normal. Biopsies were taken with a cold forceps for histology. Verification of patient identification for the specimen was done. Estimated blood loss was minimal. Impression: - LA Grade A reflux esophagitis. Biopsied. - Erythematous mucosa in the gastric body and antrum. Biopsied. - Normal second portion of the duodenum. Biopsied. Recommendation: - Discharge patient to home. - Resume previous diet. - Continue present medications. - Await pathology results. - Return to my office in 2 weeks. Procedure Code(s): --- Professional --- 04853, Esophagogastroduodenoscopy, flexible, transoral; with biopsy, single or multiple 92178, 59, Moderate sedation services provided by the same physician or other qualified health rn home care performing the diagnostic or therapeutic service that the sedation supports, requiring the presence of an independent trained observer to assist in the monitoring of the patient's level of consciousness and physiological status; initial 15 minutes of intraservice time, patient age 5 years or older CPT copyright 2017 [employer]. All rights reserved. The codes documented in this report are preliminary and upon quality control analyst review may be revised to meet current compliance requirements. Aime Magaña DO 11/29/2021 9:11:58 AM This report has been signed electronically. Number of Addenda: 1 Note Initiated On: 11/29/2021 8:23 AM Addendum Number: 1 Addendum Date: 08/02/2022 6:05:35 AM MAC was used instead of moderate sedation for the patient. Aime Magaña DO 08/02/2022 6:05:40 AM This report has been signed electronically.
--- NOTE | 2021-11-29 09:13 | OP.CCLET_ITS ---
08/02/2022 Ellis Crandall MD Re : Upper GI endoscopy procedure for Erica Pedroza Dear Dr. Crandall This procedure was performed on Monday, November 29, 2021. My impressions and recommendations are as follows: Impressions : - LA Grade A reflux esophagitis. Biopsied. - Erythematous mucosa in the gastric body and antrum. Biopsied. - Normal second portion of the duodenum. Biopsied. Recommendations : - Discharge patient to home. - Resume previous diet. - Continue present medications. - Await pathology results. - Return to my office in 2 weeks. My findings are described in the full procedure note, which is enclosed. If I can be of further assistance, please feel free to contact me at . Sincerely, Aime Magaña, 11/29/2021 9:11:58 AM This report has been signed electronically.
--- NOTE | 2021-11-29 09:20 | OP.COLON_ITS ---
Patient Name: Erica Pedroza Procedure Date: 11/29/2021 8:45 AM Date of : 1965 Age: 56 Procedure: Colonoscopy Indications: Generalized abdominal pain, Chronic diarrhea Providers: Aime Magaña DO Medicines: See the Anesthesia note for documentation of the administered medications Patient Profile: This is a 56 year old female. Refer to note in patient chart for documentation of history and physical. Patient has symptoms of chronic abdominal cramping, chronic abdominal distention and chronic epigastric abdominal pain. Last Colonoscopy: 3 years ago. Complications: No immediate complications. Procedure: Pre-Anesthesia Assessment: - Prior to the procedure, a History and Physical was performed, and patient medications and allergies were reviewed. The patient is competent. The risks and benefits of the procedure and the sedation options and risks were discussed with the patient. All questions were answered and informed consent was obtained. Patient identification and proposed procedure were verified by the physician in the pre-procedure area. Mental Status Examination: alert and oriented. Airway Examination: normal oropharyngeal airway and neck mobility. Respiratory Examination: clear to auscultation. CV Examination: normal. Prophylactic Antibiotics: The patient does not require prophylactic antibiotics. Prior Anticoagulants: The patient has taken no previous anticoagulant or antiplatelet agents. ASA Grade Assessment: II - A patient with mild systemic disease. After reviewing the risks and benefits, the patient was deemed in satisfactory condition to undergo the procedure. The anesthesia plan was to use moderate sedation / analgesia (conscious sedation). Immediately prior to administration of medications, the patient was re-assessed for adequacy to receive sedatives. The heart rate, respiratory rate, oxygen saturations, blood pressure, adequacy of pulmonary ventilation, and response to care were monitored throughout the procedure. The physical status of the patient was re-assessed after the procedure. After I obtained informed consent, the scope was passed under direct vision. Throughout the procedure, the patient's blood pressure, pulse, and oxygen saturations were monitored continuously. The colonoscope was introduced through the anus and advanced to the cecum, identified by appendiceal orifice and ileocecal valve. The colonoscopy was performed without difficulty. The patient tolerated the procedure well. The quality of the bowel preparation was adequate. Moderate Sedation: Moderate (conscious) sedation was administered by the endoscopy nurse and supervised by the endoscopist. The patient's oxygen saturation, heart rate, blood pressure and response to care were monitored. Total physician intraservice time was 15 minutes. Scope In: 8:49:31 AM Scope Withdrawal Time 0 hours 8 minutes 47 seconds Scope Out: 9:04:28 AM Total Procedure Duration Time 0 hours 14 minutes 57 seconds Findings: The perianal and digital rectal examinations were normal. Stool was found in the rectum, in the sigmoid colon, in the ascending colon and in the cecum, precluding visualization. Lavage of the area was performed using a moderate amount of sterile water, resulting in incomplete clearance with continued poor visualization. A 5 mm polyp was found in the cecum. The polyp was sessile. The polyp was removed with a hot snare. Resection and retrieval were complete. Verification of patient identification for the specimen was done. Estimated blood loss was minimal. An area of mildly congested mucosa was found in the sigmoid colon. Biopsies were taken with a cold forceps for histology. Estimated blood loss was minimal. Impression: - Stool in the rectum, in the sigmoid colon, in the ascending colon and in the cecum. - One 5 mm polyp in the cecum, removed with a hot snare. Resected and retrieved. - Congested mucosa in the sigmoid colon. Biopsied. Recommendation: - Discharge patient to home. - Resume previous diet. - Continue present medications. - Await pathology results. - Repeat colonoscopy in 5 years for surveillance based on pathology results. - Return to GI office in 2 weeks. Procedure Code(s): --- Professional --- 75124, Colonoscopy, flexible; with removal of tumor(s), polyp(s), or other lesion(s) by snare technique 92021, 59, Colonoscopy, flexible; with biopsy, single or multiple 26150, 59, Moderate sedation services provided by the same physician or other qualified health inpatient care manager rn performing the diagnostic or therapeutic service that the sedation supports, requiring the presence of an independent trained observer to assist in the monitoring of the patient's level of consciousness and physiological status; initial 15 minutes of intraservice time, patient age 5 years or older CPT copyright 2017 [employer]. All rights reserved. The codes documented in this report are preliminary and upon vascular sonographer review may be revised to meet current compliance requirements. Aime Magaña DO 11/29/2021 9:19:55 AM This report has been signed electronically. Number of Addenda: 1 Note Initiated On: 11/29/2021 8:45 AM Addendum Number: 1 Addendum Date: 08/02/2022 6:05:48 AM MAC was used instead of moderate sedation for the patient. Aime Magaña DO 08/02/2022 6:05:55 AM This report has been signed electronically.
--- NOTE | 2021-11-29 09:21 | OP.CCLET_ITS ---
08/02/2022 Ellis Crandall MD Re : Colonoscopy procedure for Erica Pedroza Dear Dr. Crandall This procedure was performed on Monday, November 29, 2021. My impressions and recommendations are as follows: Impressions : - Stool in the rectum, in the sigmoid colon, in the ascending colon and in the cecum. - One 5 mm polyp in the cecum, removed with a hot snare. Resected and retrieved. - Congested mucosa in the sigmoid colon. Biopsied. Recommendations : - Discharge patient to home. - Resume previous diet. - Continue present medications. - Await pathology results. - Repeat colonoscopy in 5 years for surveillance based on pathology results. - Return to GI office in 2 weeks. My findings are described in the full procedure note, which is enclosed. If I can be of further assistance, please feel free to contact me at . Sincerely, Aime Friend, DO 11/29/2021 9:19:55 AM This report has been signed electronically.
== END 2021-11-29 23:59 | disposition home or self-care (01) ==
LOC: EN 07:12 → AC 07:12
PROVIDERS: PCP Family Medicine; Referring Provider Family Medicine; Visit Provider Internal Medicine Gastroenterology
PROC: 0DJD8ZZ Inspection of Lower Intestinal Tract, Via Natural or Artificial Opening Endoscopic (ICD-10-PCS; CPT 45378; principal; 2021-11-29 08:10)
DX: K22.70 Barrett's esophagus without dysplasia (principal); J44.9 Chronic obstructive pulmonary disease, unspecified; K63.5 Polyp of colon; Z87.891 Personal history of nicotine dependence; K21.00 Gastro-esophageal reflux disease with esophagitis, without bleeding; E78.5 Hyperlipidemia, unspecified; K58.9 Irritable bowel syndrome, unspecified; I51.81 Takotsubo syndrome; Z79.899 Other long term (current) drug therapy; F32.A Depression, unspecified; I10 Essential (primary) hypertension; I25.5 Ischemic cardiomyopathy; Z78.0 Asymptomatic menopausal state; K52.9 Noninfective gastroenteritis and colitis, unspecified
CPT/HCPCS: 45380; 45385; 43239; 88305; 88313; 88341; 88342; J7120; J2405

== ENCOUNTER 2021-12-04 15:27 | Emergency (ER) | payer MEDICAID, SELFPAY ==
[2021-12-04] VITALS (8 sets, daily range): BP systolic 123–137; BP diastolic 79–84; PULSE 65–87; RESP 14–20; TEMP 36.6; O2SAT 96–98; BMI 23.0
--- NOTE | 2021-12-04 15:30 | RAD_ITS ---
STUDY: X-RAY CHEST REASON FOR EXAM: Female, 56 years old. Chest pain TECHNIQUE: Single AP portable view of the chest. COMPARISON: Comparison is made with prior study dated 11/08/2021. FINDINGS: There is hyperinflation of the lungs consistent with chronic obstructive lung disease (COPD). There is no demonstrated pleural abnormality. Normal size heart. Normal mediastinum and kirsten. Normal visualized pulmonary arteries. Normal visualized aortic arch and descending thoracic aorta. Normal visualized thoracic spine. Normal visualized ribs, clavicles, and shoulders. There is no demonstrated abnormality of the visualized soft tissue structures of the upper abdomen. RAD/Chest 1 View (Portable) IMPRESSION: Hyperinflation. The lungs are clear. Electronically Signed: Darrell Wan MD at 15:58 EST , Service support ,
--- NOTE | 2021-12-04 15:30 | EKG12_ITS ---
Test Reason : SOB/CP Blood Pressure : / mmHG Vent. Rate : 073 BPM Atrial Rate : 073 BPM P-R Int : 152 ms QRS Dur : 092 ms QT Int : 394 ms P-R-T Axes : 074 074 074 degrees QTc Int : 434 ms Normal sinus rhythm Normal ECG Confirmed by GLEN KING, JOE ([id number]), editor newspaper MIGUEL ARSHAD ([id number]) on 12/05/2021 2:13:50 PM Referred By: FEDERICA/RENEE Confirmed By:JOE CARROLL MD
[2021-12-04 15:57] LABS: Absolute Lymphocyte Count 2.27 X10^3/uL (0.83-4.51); Absolute Neutrophil Count 2.8 X10^3/uL (2.0-7.7); Basophil# 0.03 X10^3/uL; Basophil% 0.5 % (0-1); Eosinophil# 0.14 X10^3/uL; Eosinophils% 2.5 % (0-5); Hematocrit 42.1 % (37-47); Hemoglobin 13.7 g/dL (12.0-15.0); Lymphocyte # 2.27 X10^3/ul (0.83-4.51); Lymphocyte % 41.2 % (19-41); Mean Corp Hgb Conc 32.5 g/dL (32-36); Mean Corpuscular Hgb 28.4 pg (27.0-32.0); Mean Corpuscular Volume 87.3 fL (81-99); Mean Platelet Vol. 10.4 fl (6.2-12.0); Monocyte# 0.29 X10^3/uL; Monocyte% 5.3 % (0-10); NRBC Flagged by Analyzer 0 % (0-5); Neutrophil # 2.77 X10^3/uL (2.7-7.7); Neutrophil % 50.3 % (47-70); Platelet Count 287 K/mm3 (150-450); RBC Distribution Width CV 13.2 % (11.6-14.6); Red Blood Count 4.82 M/mm3 (4.2-5.4); White Blood Count 5.5 K/mm3 (4.4-11.0)
[2021-12-04 16:13] LABS: Anion Gap 9 (5-15); BUN 10 mg/dL (7-18); BUN/Creat Ratio 14.3 RATIO (10-20); Calcium,Total 9.6 mg/dL (8.5-10.1); Chloride 104 mmol/L (98-107); EST Glomerular Filtration Rate 93 mL/min (>60); Est Glom Filt Rate - Afr Amer 112 mL/min (>60); Estimated Creatinine Clearance 71.82 ml/min; Glucose 90 mg/dL (74-106); Potassium 3.7 mmol/L (3.5-5.1); Sodium Level 139 mmol/L (136-145); Troponin-I HS 5 pg/mL (3.0-54.0)
--- NOTE | 2021-12-04 17:16 | EDS_ITS ---
HPI History of Present Illness Chief Complaint: Chest Pain Informant: patient Onset/Context/Timing Onset: Days Activity at onset: gradual Timing: Intermittent Current Severity: Mild Maximum Severity: Mild Worsened By: Nothing Relieved By: Nothing Associated Symptoms: Positive for Dyspnea; Negative for Nausea, Vomiting, Diaphoresis, Cough, Fever, Lightheadedness, Acid Reflux and Palpitations Narrative Narrative: 56-year-old female past medical history of COPD, depression, hypertension, irritable bowel, [place] in November 2020 and prior cardiac stent. Subsequent smoking in January. States that for the last 3 to 4 days she has had shortness of breath and chest discomfort. No history of DVT or PE. No hemoptysis. No leg pain or swelling. No recent travel, surgery, immobilization or hospitalization. Prior Similar Symptoms: Yes Recent Illness/Hospitalization: No CVD Risk Factors: Positive for Hypertension and Smoking; Negative for Diabetes PE Risk Factors: Negative for Recent Travel/Surgery, Recent Immobilization, Prior DVT or PE, Cancer and OCP + Smoking + >/=35 TAD Risk Factors: Negative for Marfan's Syndrome PFSH PFS Medical History Abdominal pain Adverse drug reaction Anxiety disorder Asthma-COPD overlap syndrome Atherosclerotic heart disease of [place] coronary artery without angina pectoris Back pain Bipolar affective disorder Borderline personality disorder Cardiology follow-up encounter Chest pain of uncertain etiology Chest pain, non-cardiac Chronic left-sided thoracic back pain COPD (chronic obstructive pulmonary disease) Depression Difficulty swallowing Eloped from emergency department Essential (primary) hypertension Former smoker Gastric reflux GERD (gastroesophageal reflux disease) Headache History of echocardiogram History of Holter monitoring History of ST elevation myocardial infarction (STEMI) (08/10/21) Intermittent palpitations Irritable bowel syndrome with diarrhea Ischemic cardiomyopathy Leg cramps Myocardial infarct Nicotine dependence 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) Post-menopausal Shortness of breath Shortness of breath on exertion Syncope Takotsubo cardiomyopathy (08/10/21) Wears glasses Home Medications lorazepam [Ativan] 0.5 mg PO BID PRN 06/19/21 [History Last Taken 1 Week Ago ~08/03/21] aspirin 81 mg tablet,delayed release 81 mg PO QODAY 07/13/21 [History Last Taken 08/07/21] lamotrigine 50 mg PO DAILY 08/10/21 [History Last Taken 1 Week Ago ~08/03/21] potassium chloride 10 mEq capsule,extended release 10 meq PO QODAY cap 09/12/21 [History Last Taken Unknown] ondansetron HCl [Zofran] 4 mg PO Q8H PRN #14 tab 10/27/21 [Rx Last Taken Unknown] sucralfate [Carafate] 10 ml PO BID PRN #10 ml 10/27/21 [Rx Last Taken Unknown] fluticasone propionate [Flonase Allergy Relief] 2 spray INTRANASAL DAILY PRN 10/29/21 [History Last Taken Unknown] pantoprazole 40 mg tablet,delayed release 40 mg PO DAILY #60 tab 12/01/21 [Rx Last Taken Unknown] tiotropium 2.5 mcg-olodaterol 2.5 mcg/actuation mist for inhalation 2 inh INHALATION DAILY #4 g 12/01/21 [Rx Last Taken Unknown] albuterol sulfate [Ventolin HFA] 1 - 2 puff INHALATION Q4H PRN PRN 14 Days #1 ea 12/04/21 [Rx Last Taken Unknown] prednisone 40 mg PO DAILY 7 Days #14 tab 12/04/21 [Rx Last Taken Unknown] Allergy/AdvReac Type Severity Reaction Status Date / Time morphine Allergy Hives Verified 12/04/21 15:30 amlodipine AdvReac Intermediate chest Verified 12/04/21 15:30 pain and cannot breathe carvedilol [From Coreg] AdvReac Intermediate throat Verified 12/04/21 15:30 closing up and chest pressure citalopram [From Celexa] AdvReac NAUSEATED Verified 12/04/21 15:30 AND IRRITABLE lisinopril AdvReac SOB, chest Verified 12/04/21 15:30 tightness,throat closing venlafaxine [From Effexor] AdvReac DIDN'T Verified 12/04/21 15:30 WORK Family History Father CAD (coronary artery disease) Myocardial infarction Surgical History H/O section History of cardiac catheterization (08/11/21) History of coronary artery stent placement (12/18/20) History of esophagogastroduodenoscopy (EGD) History of left heart catheterization (05/17/21) Social History household members: none Smoking Status: Former smoker quit date: 01/23/21 pack-years: 30 how long ago did patient quit smokin days ago alcohol intake: never substance use type: does not use caffeine: Yes Type: coffee Number of servings: 2 ROS ROS ED ROS Narrative Shortness of breath. Chest discomfort for days. Review of Systems ROS Unobtainable: Denies due to encephalopathy Constitutional Constitutional ED: Denies chills, fever(s) or subjective Eyes Eyes: Denies none or change in vision ENT ENT ED: Denies ear pain or rhinorrhea Cardiovascular Cardiovascular: Reports as per HPI and chest pain; Denies palpitations or racing heartbeat Respiratory/Chest Respiratory/Chest: Reports dyspnea; Denies cough or sputum Gastrointestinal Gastrointestinal: Denies abdominal pain, constipation, diarrhea, melena, nausea or vomiting Genitourinary Genitourinary ED: Denies dysuria or hematuria Musculoskeletal Musculoskeletal: Denies arthralgias or myalgias Integumentary Denies rash Neurologic Neurologic: Denies headache(s) Psychiatric Psychiatric: Denies depression EXAM Physical Exam Narrative Exam Narrative: Well-appearing white female. Vital signs stable afebrile. Pulse ox 90% on room air no signs of hypoxia. HEENT exam unremarkable. Neck nontender no JVD. No lymphadenopathy. Lungs clear to auscultation bilaterally. No rales, rhonchi or wheezing. Heart regular rate and rhythm rate about 85 no murmur. Chest nontender. Abdomen soft nontender normal bowel sounds no peritoneal signs. Moving all 4 extremities. Calves are nontender without edema or cords. Neurologically she is awake and alert with no focal motor deficits. Const Vital Signs: 12/04/21 15:28 12/04/21 16:35 12/04/21 17:39 Temperature 97.8 F Temperature Source Temporal Pulse Rate 85 65 Respiratory Rate 18 20 H Blood Pressure 137/84 H Blood Pressure Mean 101 Pulse Ox 98 96 Oxygen Delivery Method Room Air Room Air 12/04/21 17:45 12/04/21 18:00 12/04/21 19:00 Temperature Temperature Source Pulse Rate 75 77 80 Respiratory Rate 18 16 15 Blood Pressure Blood Pressure Mean Pulse Ox 97 Oxygen Delivery Method Room Air Positive well nourished and well developed; Negative for obese, cachectic, contractures or unkempt General Appearance ED: well developed and NAD; Negative for unkempt, cachectic, contractures or pallor Nutritional Appearance: Negative for cachectic or obese HEENT Denies moist mucous membranes normocephalic and atraumatic; Negative for trauma or tenderness Eyes PERRL and EOMs intact bilaterally Neck no lymphadenopathy, supple and no JVD General: Negative for tenderness Chest Wall inspection of chest normal and palpation of chest normal Resp normal respiratory effort and clear to auscultation bilaterally Effort and Inspection: respiratory distress Auscultation: Negative for rales, rhonchi or wheezes Cardio regular rate, regular rhythm, S1 normal heart sound, S2 normal heart sound and no murmurs Rate: Negative for bradycardia or tachycardic GI normal to inspection, nondistended, normoactive bowel sounds, soft to palpation, non-tender, non-distended and no masses; Negative for hepatosplenomegaly Auscultation: Negative for hyperactive bowel sounds Palpation: Negative for splenomegaly Back/Spine no CVA tenderness General Back: Negative for CVA tenderness Extremity normal to inspection General Extremety ED: Negative for edema, pulses abnormal or tenderness General Extremity: Negative for edema or pulses abnormal Neuro oriented x3 Sensorium / Orientation: awake, alert, oriented to person, oriented to place and oriented to time Motor Exam: strength 5/5 throughout Psych mental status grossly normal Appearance: Negative for unkempt Attitude: No agitated Mood & Affect: Negative for depressed, anxious or tearful Skin no rashes or lesions noted and no wounds General Skin Exam: Negative for jaundice or pallor MDM MDM MDM Narrative Medical decision making narrative: 56-year-old female this does not appear to be cardiac at all. I do not think that PE she has never had 1 and has no risk factors. Exam is benign she was given a DuoNeb aerosol and prednisone. She does have a history of COPD. Repeat exam patient is doing well 8:15 PM she will be discharged to home. With a prescription for Proventil inhaler and prednisone for a week. Follow-up as needed. Return if worse. Lab Data Attestation: I reviewed the patient's lab results. Lab results narrative: CBC shows white count 5.5. Hemoglobin 13.7. Platelets of 287. Electrolytes unremarkable gap at 9 normal BUN and creatinine. Normal troponin of 5. Rapid COVID antigen negative. Labs: Laboratory Results - last 24 hr 12/04/21 12/04/21 15:47 15:47 WBC 5.5 RBC 4.82 Hgb 13.7 Hct 42.1 MCV 87.3 MCH 28.4 MCHC 32.5 RDW Std Deviation 43.0 RDW Coeff of Dona 13.2 Plt Count 287 MPV 10.4 Immature Gran % (Auto) 0.200 Neut % (Auto) 50.3 Lymph % (Auto) 41.2 H Teller % (Auto) 5.3 Eos % (Auto) 2.5 Baso % (Auto) 0.5 Absolute Neuts (auto) 2.8 Absolute Lymphs (auto) 2.27 Nucleated RBC % 0 Sodium 139 Potassium 3.7 Chloride 104 Carbon Dioxide 26.0 Anion Gap 9 BUN 10 Creatinine 0.70 Estim Creat Clear Calc 71.82 Est GFR (MDRD) Af Amer 112 Est GFR (MDRD) Non-Af 93 BUN/Creatinine Ratio 14.3 Glucose 90 Calcium 9.6 Troponin I High Sens 5 Radiography Chest X-Ray - ED: 1 View, Read by ED Physician, Normal, Heart, Lungs, Mediastinum, Bony Structures, No Acute Disease and Chronic Changes Diagnostic Testing: Clinical Impression(s) from Imaging Studies Chest X-Ray 12/04/21 15:30 IMPRESSION: Hyperinflation. The lungs are clear. Electronically Signed: Darrell Wan MD at 15:58 EST , Service support , Portable, single view chest x-ray interpreted by myself and the radiologist shows no acute abnormality. Normal cardiac silhouette. Chronic changes consistent with COPD but no acute infiltrate. Discharge Plan Triage Chief Complaint: Chest Pain ED Provider: Yonas Guzman Dx/Rx/DC Orders Clinical Impression: COPD (chronic obstructive pulmonary disease), Dyspnea Instructions: COPD: Wheezing and Chest Tightness Prescriptions: New prednisone 20 mg tablet 40 mg PO DAILY 7 Days Qty: 14 RF: 0 albuterol sulfate [Ventolin HFA] 90 mcg/actuation HFA aerosol inhaler 1 - 2 puff inhalation Q4H PRN PRN (Reason: Wheezing) 14 Days Qty: 1 RF: 1 No Action aspirin [Adult Low Dose Aspirin] 81 mg tablet,delayed release (DR/EC) 81 mg PO QODAY RF: 0 potassium chloride 10 mEq capsule, extended release 10 meq PO QODAY RF: 0 Stiolto Respimat 2.5-2.5 mcg/actuation mist 2 inh inhalation DAILY Qty: 4 RF: 2 lorazepam [Ativan] 0.5 mg Tablet 0.5 mg PO BID PRN (Reason: Anxiety) RF: 0 lamotrigine 100 mg tablet 50 mg PO DAILY RF: 0 sucralfate [Carafate] 100 mg/mL suspension 10 ml PO BID PRN (Reason: epigastric pain) Qty: 10 RF: 0 ondansetron HCl [Zofran] 4 mg tablet 4 mg PO Q8H PRN (Reason: nausea and vomiting) Qty: 14 RF: 0 fluticasone propionate [Flonase Allergy Relief] 50 mcg/actuation spray,suspension 2 spray intranasal DAILY PRN (Reason: Allergy Symptoms) RF: 0 pantoprazole [Protonix] 40 mg tablet,delayed release (DR/EC) 40 mg PO DAILY Qty: 60 RF: 2 Primary Care Provider: Ellis Crandall Referrals: Ellis Crandall MD [Primary Care Provider] - 1 Week if not improving Activity Restrictions/Additional Instructions: Take prednisone 40 mg each day till gone. Use your inhaler as needed 1 to 2 puffs every 2-4 hours Follow-up with your doctor if not improving or return emergency department if worse.. Disposition Disposition: Home, Self Care
[2021-12-04] MEDS: Ipratropium/Albuterol Sulfate 3 ML AMPUL.NEB INHALATION (17:38)
[2021-12-04] MEDS: predniSONE 20 MG Tablet 60 MG PO (17:45)
--- NOTE | 2021-12-04 20:37 | ED.RN ---
THIS NURSE REVIEWED D/C INSTRUCTIONS WITH PT. PT VERBALIZED UNDERSTANDING OF INSTRUCTIONS. IV D/C. IV CATHETER INTACT. PT TOLERATED WELL. PT DENIES FURTHER NEEDS OR QUESTIONS AT THIS TIME. PT AMBULATES FROM ROOM ON OWN WITHOUT ASSISTANCE FROM STAFF
== END 2021-12-04 20:39 | disposition home or self-care (01) ==
PROVIDERS: Emergency Provider Emergency Medicine; PCP Family Medicine; Visit Provider Emergency Medicine
DX: J44.9 Chronic obstructive pulmonary disease, unspecified (principal); F31.9 Bipolar disorder, unspecified; I25.10 Atherosclerotic heart disease of native coronary artery without angina pectoris; Z87.891 Personal history of nicotine dependence; I10 Essential (primary) hypertension; I25.5 Ischemic cardiomyopathy; F41.9 Anxiety disorder, unspecified; K21.9 Gastro-esophageal reflux disease without esophagitis; I25.2 Old myocardial infarction; K58.0 Irritable bowel syndrome with diarrhea; Z78.0 Asymptomatic menopausal state; Z79.899 Other long term (current) drug therapy; G89.29 Other chronic pain; Z79.82 Long term (current) use of aspirin; Z95.5 Presence of coronary angioplasty implant and graft
CPT/HCPCS: 71045; 80048; 84484; 85025; 87426; 93005; 94640; 99285; A4216

== ENCOUNTER 2021-12-13 14:47 | Outpatient (CLI) | payer MEDICAID, SELFPAY ==
[2021-12-16 11:08] LABS: Endomysial Antibody IgA Negative (Negative)
[2021-12-16 14:22] LABS: Immunoglobulin A 90 mg/dL (87-352); t-Transglutaminase IgA <2 U/mL (0-3)
== END 2021-12-13 23:59 | disposition short-term general hospital (02) ==
LOC: LAB 14:48
PROVIDERS: PCP Family Medicine; Visit Provider Nurse Practitioner Adult Health
DX: K59.09 Other constipation (principal); R10.9 Unspecified abdominal pain
CPT/HCPCS: 36415; 82784; 83516; 86255

== ENCOUNTER 2022-01-23 13:08 | Emergency (ER) | payer MEDICAID, SELFPAY ==
[2022-01-23 13:09] VITALS: BP 143/90; PULSE 84; RESP 16; TEMP 36.3; O2SAT 100; BMI 23.8
--- NOTE | 2022-01-23 13:26 | EKG12_ITS ---
Test Reason : CP Blood Pressure : / mmHG Vent. Rate : 073 BPM Atrial Rate : 073 BPM P-R Int : 164 ms QRS Dur : 092 ms QT Int : 386 ms P-R-T Axes : 067 067 062 degrees QTc Int : 425 ms Normal sinus rhythm Normal ECG Confirmed by JORJE KING, LEONIDES ([id number]), editor department FILI CASTILLO ([id number]) on 01/25/2022 1:33:34 PM Referred By: FEDERICA Confirmed By:LEONIDES RECINOS MD
--- NOTE | 2022-01-23 13:27 | EDS_ITS ---
HPI History of Present Illness Chief Complaint: Chest Other Narrative Narrative: Patient with past medical history of coronary artery disease, states she had an [place] a year ago in November, approximately 14 months ago, and has 1 stent presents with midsternal chest pain and left-sided chest pain that she has had constantly for the last week and a half. She states she was tested for Covid a week and a half ago which was negative, but then 2 days later tested positive. She had cough and shortness of breath. She complains of worsening chest pain over the last week. She states it is in the bilateral parasternal border and down to the left side under her arm. Pain is worse with movement or whenever she tries to do something. She denies any swelling of her legs, no diaphoresis, no other symptoms. 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 Lopez, and they did not think that it was necessarily cardiac pain, but she states that anti-inflammatories are not good for her and are not helping her. She presents for evaluation of her pain in her parasternal borders and on the left side of her ribs. [facility] Medical History Abdominal pain Adverse drug reaction Anxiety disorder Asthma-COPD overlap syndrome Atherosclerotic heart disease of [place] coronary artery without angina pectoris Back pain Bipolar affective disorder Borderline personality disorder Cardiology follow-up encounter Chest pain of uncertain etiology Chest pain, non-cardiac Chronic left-sided thoracic back pain COPD (chronic obstructive pulmonary disease) Depression Difficulty swallowing Eloped from emergency department Essential (primary) hypertension Former smoker Gastric reflux GERD (gastroesophageal reflux disease) Headache History of echocardiogram History of Holter monitoring History of ST elevation myocardial infarction (STEMI) (08/10/21) Intermittent palpitations Irritable bowel syndrome with diarrhea Ischemic cardiomyopathy Leg cramps Myocardial infarct Nicotine dependence 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) Post-menopausal Shortness of breath Shortness of breath on exertion Syncope Takotsubo cardiomyopathy (08/10/21) Wears glasses Home Medications lorazepam [Ativan] 0.5 mg PO BID PRN 06/19/21 [History Last Taken 1 Week Ago ~08/03/21] aspirin 81 mg tablet,delayed release 81 mg PO QODAY 07/13/21 [History Last Taken 08/07/21] lamotrigine 50 mg PO DAILY 08/10/21 [History Last Taken 1 Week Ago ~08/03/21] ondansetron HCl [Zofran] 4 mg PO Q8H PRN #14 tab 10/27/21 [Rx Last Taken Unknown] fluticasone propionate [Flonase Allergy Relief] 2 spray INTRANASAL DAILY PRN 10/29/21 [History Last Taken Unknown] fluoxetine 10 mg capsule 10 mg PO DAILY 12/14/21 [History Last Taken Unknown] esomeprazole magnesium 20 mg capsule,delayed release 20 mg PO BID cap 01/22/22 [History Last Taken Unknown] ibuprofen 400 mg tablet 400 mg PO TID 01/22/22 [History Last Taken Unknown] sulfamethoxazole 1 mg PO DAILY 01/23/22 [History Last Taken Unknown] Allergy/AdvReac Type Severity Reaction Status Date / Time morphine Allergy Hives Verified 01/16/22 13:47 amlodipine AdvReac Intermediate chest Verified 01/16/22 13:47 pain and cannot breathe carvedilol [From Coreg] AdvReac Intermediate throat Verified 01/16/22 13:47 closing up and chest pressure citalopram [From Celexa] AdvReac NAUSEATED Verified 01/16/22 13:47 AND IRRITABLE lisinopril AdvReac SOB, chest Verified 01/16/22 13:47 tightness,throat closing venlafaxine [From Effexor] AdvReac DIDN'T Verified 01/16/22 13:47 WORK Family History Father CAD (coronary artery disease) Myocardial infarction Surgical History H/O section History of cardiac catheterization (08/11/21) History of coronary artery stent placement (12/18/20) History of esophagogastroduodenoscopy (EGD) History of left heart catheterization (05/17/21) Social History household members: none Smoking Status: Former smoker quit date: 01/23/21 pack-years: 30 how long ago did patient quit smokin days ago alcohol intake: never substance use type: does not use caffeine: Yes Type: coffee Number of servings: 2 ROS ROS ED ROS Narrative Constitutional: No fever, no chills. HEENT: No sore throat. No neck pain. No loss of vision. No rhinorrhea. Cardiovascular: Parasternal/midsternal and left-sided chest pain. No palpitations. No pedal edema. Respiratory: No cough, no shortness of breath. Abdominal: No abdominal pain. No nausea. No vomiting. Genitourinary: No dysuria. No hematuria. Musculoskeletal: No myalgias. No arthralgias. Neurologic: No headaches. No dizziness. No lightheadedness. Skin: No rash. No change in color. Psychiatric: No depression. No anxiety. EXAM Physical Exam Narrative Exam Narrative: Afebrile. Vital signs noted. HEENT: Normocephalic. Atraumatic. PERRL, EOMI. Neck soft and supple. No point tenderness or step off. Cardiovascular: Regular rate and rhythm. No murmurs, rubs, or gallops appreciated. Mild tenderness to palpation bilateral parasternal borders. Mild pain with movement of torso. No crepitance of ribs. Tenderness to palpation. Respiratory: No tachypnea. Lungs clear to auscultation bilaterally. Gastrointestinal: Abdomen soft, nontender, with normoactive bowel sounds. No rebound or guarding. Neurological: Awake. Alert. Nonfocal, nonlateralizing. Skin: No rash. Normal color. No pallor. Musculoskeletal: No pedal edema. Full range of motion extremities. Const Vital Signs: 01/23/22 13:09 01/23/22 13:18 01/23/22 13:28 Temperature 97.3 F L Temperature Source Temporal Pulse Rate 84 Respiratory Rate 16 Respiratory Effort Normal Non-Labored Blood Pressure 143/90 H Blood Pressure Mean 107 Pulse Ox 100 100 Oxygen Delivery Method Room Air Room Air 01/23/22 14:15 01/23/22 15:07 01/23/22 16:04 Temperature Temperature Source Pulse Rate 77 80 66 Respiratory Rate 18 21 H 14 Respiratory Effort Blood Pressure Blood Pressure Mean Pulse Ox 95 99 98 Oxygen Delivery Method Room Air Room Air Room Air Heart Score History: Slightly/Non-Suspicious ECG: Normal Age: >45 - <65 years Risk Factors: >/= 3 Risk Factors or History of CAD Troponin: </= Normal Limit Score: 3 MDM MDM MDM Narrative Medical decision making narrative: Given her history of coronary artery disease, chest pain work-up was pursued. Her EKG demonstrates normal sinus rhythm at 73 bpm without ectopy or acute ST changes. Her laboratory work is grossly unremarkable, normal white count of 5.1, hemoglobin stable at 12.7. Electrolyte panel grossly unremarkable. High-sensitivity troponin normal at 5. Repeat normal at 4. I do feel that she has been ruled out with a low heart score that she can be discharged safely home. Rib and chest x-ray show normal examination. There is hyperinflation and the lungs are clear. At this point in time, I do feel she has more of a chest wall pain. She will take [id number] Tylenol as needed. I feel she be discharged safely home with follow-up. Return instructions to the emergency department were reviewed. Disposition is discharged home in stable condition. Lab Data Attestation: I reviewed the patient's lab results. Labs: Laboratory Results - last 24 hr 01/23/22 01/23/22 01/23/22 13:37 13:37 15:37 WBC 5.1 RBC 4.50 Hgb 12.7 Hct 38.8 MCV 86.2 MCH 28.2 MCHC 32.7 RDW Std Deviation 42.1 RDW Coeff of Dona 13.4 Plt Count 337 MPV 10.2 Immature Gran % (Auto) 0.000 Neut % (Auto) 45.2 L Lymph % (Auto) 43.1 H Gosper % (Auto) 7.8 Eos % (Auto) 3.1 Baso % (Auto) 0.8 Absolute Neuts (auto) 2.3 Absolute Lymphs (auto) 2.20 Nucleated RBC % 0 Sodium 140 Potassium 3.8 Chloride 107 Carbon Dioxide 27.0 Anion Gap 6 BUN 13 Creatinine 0.61 Estim Creat Clear Calc 78.63 Est GFR (MDRD) Af Amer 130 Est GFR (MDRD) Non-Af 107 BUN/Creatinine Ratio 21.2 H Glucose 81 Calcium 9.9 Troponin I High Sens 5 4 Radiography Diagnostic Testing: Clinical Impression(s) from Imaging Studies Ribs w/Chest X-Ray 01/23/22 13:48 IMPRESSION: RIBS: Normal x-ray examination of the ribs. CHEST: Hyperinflation. The lungs are clear. Electronically Signed: Darrell Wan MD at 14:09 EST , Discharge Plan Triage Chief Complaint: Chest Other ED Provider: Macario Messer Dx/Rx/DC Orders Clinical Impression: Chest wall pain, Costochondritis Instructions: ED Chest Pain, Uncertain Cause, ED Chest Wall Pain, Costochondritis Prescriptions: No Action aspirin [Adult Low Dose Aspirin] 81 mg tablet,delayed release (DR/EC) 81 mg PO QODAY RF: 0 fluoxetine 10 mg capsule 10 mg PO DAILY RF: 0 lorazepam [Ativan] 0.5 mg Tablet 0.5 mg PO BID PRN (Reason: Anxiety) RF: 0 lamotrigine 100 mg tablet 50 mg PO DAILY RF: 0 ondansetron HCl [Zofran] 4 mg tablet 4 mg PO Q8H PRN (Reason: nausea and vomiting) Qty: 14 RF: 0 fluticasone propionate [Flonase Allergy Relief] 50 mcg/actuation spray,suspension 2 spray intranasal DAILY PRN (Reason: Allergy Symptoms) RF: 0 sulfamethoxazole 500 mg Tablet 1 mg PO DAILY RF: 0 ibuprofen 400 mg tablet 400 mg PO TID RF: 0 esomeprazole magnesium [Nexium 24HR] 20 mg capsule,delayed release(DR/EC) 20 mg PO BID RF: 0 Primary Care Provider: Ellis Crandall Referrals: Ellis Crandall MD [Primary Care Provider] - 1 Week if not improving Disposition Disposition: Home, Self Care
[2022-01-23 13:28] VITALS: O2SAT 100
[2022-01-23] MEDS: Aspirin 81 MG TAB.CHEW 324 MG PO (13:33)
[2022-01-23 13:44] LABS: Absolute Neutrophil Count 2.3 X10^3/uL (2.0-7.7); Basophil# 0.04 X10^3/uL; Basophil% 0.8 % (0-1); Eosinophil# 0.16 X10^3/uL; Eosinophils% 3.1 % (0-5); Hematocrit 38.8 % (37-47); Hemoglobin 12.7 g/dL (12.0-15.0); Lymphocyte % 43.1 % (19-41); Mean Corp Hgb Conc 32.7 g/dL (32-36); Mean Corpuscular Hgb 28.2 pg (27.0-32.0); Mean Corpuscular Volume 86.2 fL (81-99); Mean Platelet Vol. 10.2 fl (6.2-12.0); Monocyte% 7.8 % (0-10); NRBC Flagged by Analyzer 0 % (0-5); Neutrophil % 45.2 % (47-70); Platelet Count 337 K/mm3 (150-450); RBC Distribution Width CV 13.4 % (11.6-14.6); RBC Distribution Width SD 42.1 fl (35.1-43.9); White Blood Count 5.1 K/mm3 (4.4-11.0)
--- NOTE | 2022-01-23 13:48 | RAD_ITS ---
STUDY: X-RAY - UNILATERAL RIBS ( LEFT ) WITH CHEST REASON FOR EXAM: Female, 56 years old. Left anterior rib pain. TECHNIQUE - RIBS: 2 view(s) of the ribs. TECHNIQUE - CHEST: Single PA view of the chest. COMPARISON: Comparison is made with prior study dated 12/04/2021. FINDINGS - RIBS: Normal visualized ribs without a demonstrated fracture. FINDINGS - CHEST: EKG electrodes are seen. Hyperinflation. The lungs are clear. There is no demonstrated pleural abnormality. Normal size heart. Normal mediastinum and kirsten. Normal visualized pulmonary arteries. Normal visualized aortic arch and descending thoracic aorta. Normal visualized thoracic spine. Normal visualized ribs, clavicles, and shoulders. There is no demonstrated abnormality of the visualized soft tissue structures of the upper abdomen. RAD/Ribs Uni Min 3V w/PA Chest IMPRESSION: RIBS: Normal x-ray examination of the ribs. CHEST: Hyperinflation. The lungs are clear. Electronically Signed: Darrell Wan MD at 14:09 EST ,
[2022-01-23 14:01] LABS: Anion Gap 6 (5-15); BUN 13 mg/dL (7-18); BUN/Creat Ratio 21.2 RATIO (10-20); Calcium,Total 9.9 mg/dL (8.5-10.1); Chloride 107 mmol/L (98-107); Creatinine, Serum 0.61 mg/dL (0.55-1.02); EST Glomerular Filtration Rate 107 mL/min (>60); Est Glom Filt Rate - Afr Amer 130 mL/min (>60); Estimated Creatinine Clearance 78.63 ml/min; Glucose 81 mg/dL (74-106); Potassium 3.8 mmol/L (3.5-5.1); Sodium Level 140 mmol/L (136-145); Troponin-I HS 5 pg/mL (3.0-54.0)
[2022-01-23 14:15] VITALS: PULSE 77; RESP 18; O2SAT 95
[2022-01-23 15:07] VITALS: PULSE 80; RESP 21; O2SAT 99
[2022-01-23 16:04] VITALS: PULSE 66; RESP 14; O2SAT 98
[2022-01-23 16:07] LABS: Troponin-I HS 4 pg/mL (3.0-54.0)
== END 2022-01-23 16:26 | disposition home or self-care (01) ==
PROVIDERS: Emergency Provider Emergency Medicine; PCP Family Medicine; Visit Provider Emergency Medicine
DX: R07.89 Other chest pain (principal); J44.9 Chronic obstructive pulmonary disease, unspecified; K22.70 Barrett's esophagus without dysplasia; M94.0 Chondrocostal junction syndrome [Tietze]; I10 Essential (primary) hypertension; I25.5 Ischemic cardiomyopathy; I25.10 Atherosclerotic heart disease of native coronary artery without angina pectoris; Z87.891 Personal history of nicotine dependence; I25.2 Old myocardial infarction
CPT/HCPCS: 71101; 80048; 84484; 85025; 93005; 99283; A4216

== ENCOUNTER 2022-02-16 10:10 | Outpatient (CLI) | payer MEDICAID, SELFPAY ==
--- NOTE | 2022-02-16 12:00 | NEURO_ITS ---
NCS and/or EMG Patient Report Ordering Doctor: Ellis Crandall DATE OF SERVICE: 02/16/22 Indication: Left upper extremity pain, numbness and weakness for the last four months. Evaluate for cervical radiculopathy and/or entrapment neuropathy. Findings: Nerve conduction studies were performed in the left upper extremity. The left median motor study recording the abductor pollicis brevis showed a normal amplitude, normal distal latency and normal conduction velocity. The left ulnar motor study recording the abductor digiti minimi showed a normal amplitude, normal distal latency and normal conduction velocity. No conduction block or focal slowing was present across the elbow. The left median sensory response recording digit two showed a normal amplitude, normal latency and borderline conduction velocity. The left ulnar sensory response recording digit five showed a normal amplitude, latency and conduction velocity. The left radial sensory response recording over the extensor snuff box showed a normal amplitude, normal latency and borderline conduction velocity. Needle EMG of the left upper extremity and cervical paraspinal muscles was performed. No denervation was seen in any muscle. All motor unit morphology, activation and recruitment patterns were normal. Impression: This is a normal study. There is no electrophysiologic evidence of cervical radiculopathy in the left upper extremity. In addition, there was no electrophysiologic evidence of median or ulnar entrapment neuropathy, or brac hial plexopathy in the left upper extremity. Please note: the electrodiagnosis of radiculopathy is made on the basis of excluding peripheral nerve lesions on nerve conduction studies and the needle E MG demonstrating denervation and/or reinnervation in the distribution of one or more nerve roots (i.e., acute and/or chronic axonal loss). Thus, electrodiagnostic studies are insensitive in detecting radiculopathy in the absence of axonal loss (e.g., in the setting of compression resulting in intermittent ischemia or mechanical deformation; or demyelination without axonal loss). Thus, clinical correlation is required in the interpretation of this negative electrodiagnostic study for radiculopathy. Nj Ferrera D.O. Multi Select Codes Neurology Neurology Interp Codes: 29263-89 Musc test done w/n test comp (interp) and 54726-05 Nrv cndj tst 5-6 studies (interp)
== END 2022-02-16 23:59 | disposition home or self-care (01) ==
PROVIDERS: PCP Family Medicine; Referring Provider Family Medicine; Visit Provider Family Medicine
DX: R20.0 Anesthesia of skin (principal); R20.2 Paresthesia of skin; J02.9 Acute pharyngitis, unspecified
CPT/HCPCS: 87070; 95886; 95910

== ENCOUNTER 2022-03-02 07:20 | Outpatient (CLI) | payer MEDICAID, SELFPAY ==
--- NOTE | 2022-03-02 07:22 | US_ITS ---
STUDY: SUPERFICIAL ULTRASOUND - LEFT AXILLA. REASON FOR EXAM: Female, 56 years old. Two-week history of a left axillary lump. TECHNIQUE: A superficial ultrasound was performed with real-time and static vela-scale imaging. COMPARISON: None. FINDINGS: The axillary region was examined by ultrasound. No sonographic abnormality is seen. US/Ext Non Vasc Limited/Soft Tiss IMPRESSION: No sonographic abnormality is seen. Electronically Signed: Darrell Wan MD at 8:51 EDT ,
--- NOTE | 2022-03-02 07:22 | US_ITS ---
STUDY: ABDOMINAL ULTRASOUND - RIGHT UPPER QUADRANT REASON FOR VISIT: Female, 56 years old . Abdominal pain. TECHNIQUE: Ultrasound evaluation of the right upper quadrant was performed with real-time and static vela-scale imaging. TECHNICAL QUALITY: Adequate. COMPARISON: None. FINDINGS: Liver: The liver measures 12.5 cm. There is normal echogenicity of the liver. The bile ducts are within normal limits. There is hepatic color flow. The direction of portal flow is hepatopetal. Multiple hepatic cysts are seen. The largest measures 4 cm x 4.2 cm x 4 cm. Gallbladder: Normal distended gallbladder. The gallbladder wall measures 2.4 mm. There is a negative sonographic Stevens''s sign. There is no pericholecystic fluid. There are no gallstones. There is a 4 mm x 3 mm x 3 mm gallbladder polyp. Common Bile Duct (C.B.D.): The common bile duct measures 1.7 mm. Pancreas: Normal size of the head, body of the pancreas. The tail portion is obscured due to overlying bowel gas. There is normal echogenicity of the pancreas. There is no demonstrated pancreatic mass or cyst. Right Kidney: Normal size of the right kidney. The right kidney measures 9.7 cm x 4.4cm x 6 cm. Normal renal cortex. The right cortex measures 2 cm. There is no demonstrated renal mass or cyst. There is no right hydronephrosis. Incidental finding is made of a 4.7 cm x 5.9 cm x 2.8 cm isoechoic palpable mass with striations. This is in the right flank. This may represent a lipoma. Clinical correlation suggested. US/Abdomen Limited IMPRESSION: Small gallbladder polyp. Multiple hepatic cysts. Palpable lump in the right flank suggestive of a lipoma. This measures 4.7 cm x 5.9 cm x 2.8 cm. Electronically Signed: Darrell Wan MD at 15:17 EDT ,
== END 2022-03-02 23:59 | disposition home or self-care (01) ==
PROVIDERS: PCP Family Medicine; Referring Provider Internal Medicine Gastroenterology; Visit Provider Registered Nurse
DX: R59.9 Enlarged lymph nodes, unspecified (principal); M79.622 Pain in left upper arm
CPT/HCPCS: 76705; 76882

== ENCOUNTER 2022-03-03 05:15 | Emergency (ER) | payer MEDICAID, SELFPAY ==
[2022-03-03 05:16] VITALS: BP 168/97; PULSE 83; RESP 18; TEMP 36.2; O2SAT 99; BMI 24.9
--- NOTE | 2022-03-03 05:24 | EDS_ITS ---
HPI History of Present Illness Chief Complaint: Chest Pain Detail of Chief Complaint: Pain in back and chest pain Informant: patient Narrative Narrative: Patient presents to the emergency department complaint of pain in her back that she has had for 2 to 3 days. Patient states is worse with breathing. She denies any injury to her back. She also states she gets an occasional intermittent pain in her chest that is like an electrical shock and lasts a second or so and then disappears. She denies shortness of breath. She denies fever or recent illness. She denies recent travel or surgery. No history of PE or DVT. Patient does have a history of coronary artery disease with a cardiac stent last year. Prior Similar Symptoms: No PFSH PFSH Medical History Abdominal pain Adverse drug reaction Anxiety disorder Asthma-COPD overlap syndrome Atherosclerotic heart disease of [place] coronary artery without angina pectoris Back pain Barretts esophagus Bipolar affective disorder Borderline personality disorder Chest pain of uncertain etiology Chest pain, non-cardiac Chronic constipation Chronic left-sided thoracic back pain COPD (chronic obstructive pulmonary disease) Depression Difficulty swallowing Eloped from emergency department Essential (primary) hypertension Former smoker Gastric reflux GERD (gastroesophageal reflux disease) Headache History of echocardiogram History of Holter monitoring History of non-ST elevation myocardial infarction (NSTEMI) (08/10/21) History of ST elevation myocardial infarction (STEMI) (12/18/20) Intermittent palpitations Irritable bowel syndrome with diarrhea Ischemic cardiomyopathy Leg cramps Myocardial infarct Nicotine dependence 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) Post-menopausal Shortness of breath Shortness of breath on exertion Syncope Takotsubo cardiomyopathy (08/10/21) Wears glasses Home Medications lorazepam [Ativan] 0.5 mg PO BID PRN 06/19/21 [History Last Taken 1 Week Ago ~08/03/21] aspirin 81 mg tablet,delayed release 81 mg PO QODAY 07/13/21 [History Last Taken 08/07/21] lamotrigine 50 mg PO DAILY 08/10/21 [History Last Taken 1 Week Ago ~08/03/21] fluticasone propionate [Flonase Allergy Relief] 2 spray INTRANASAL DAILY PRN 10/29/21 [History Last Taken Unknown] fluoxetine 10 mg capsule 10 mg PO DAILY 12/14/21 [History Last Taken Unknown] ibuprofen 400 mg tablet 400 mg PO TID 01/22/22 [History Last Taken Unknown] esomeprazole magnesium 20 mg capsule,delayed release 20 mg PO DAILY cap 01/30/22 [History Last Taken Unknown] famotidine 40 mg tablet 40 mg PO QHS tab 01/30/22 [History Last Taken Unknown] Allergy/AdvReac Type Severity Reaction Status Date / Time morphine Allergy Hives Verified 03/03/22 05:18 amlodipine AdvReac Intermediate chest Verified 03/03/22 05:18 pain and cannot breathe carvedilol [From Coreg] AdvReac Intermediate throat Verified 03/03/22 05:18 closing up and chest pressure citalopram [From Celexa] AdvReac NAUSEATED Verified 03/03/22 05:18 AND IRRITABLE lisinopril AdvReac SOB, chest Verified 03/03/22 05:18 tightness,throat closing venlafaxine [From Effexor] AdvReac DIDN'T Verified 03/03/22 05:18 WORK Family History Father CAD (coronary artery disease) Myocardial infarction Surgical History H/O section History of cardiac catheterization (08/11/21) History of coronary artery stent placement (12/18/20) History of esophagogastroduodenoscopy (EGD) History of left heart catheterization (05/17/21) Social History household members: none Smoking Status: Former smoker quit date: 01/23/21 pack-years: 30 how long ago did patient quit smokin days ago alcohol intake: never substance use type: does not use caffeine: Yes Type: coffee Number of servings: 2 ROS ROS ED Review of Systems ROS Unobtainable: other Constitutional Constitutional ED: Reports lethargy; Denies chills, fever(s), sweats or weight loss Eyes Eyes: Denies blurry vision, change in vision or diplopia ENT ENT ED: Denies rhinorrhea or sore throat Cardiovascular Cardiovascular: Reports chest pain and racing heartbeat; Denies orthopnea Respiratory/Chest Respiratory/Chest: Reports dyspnea and dyspnea on exertion; Denies cough, orthopnea or sputum Gastrointestinal Gastrointestinal: Denies abdominal pain, diarrhea, nausea or vomiting Genitourinary Genitourinary ED: Denies dysuria, hematuria or urinary frequency Musculoskeletal Musculoskeletal: Reports back pain; Denies arthralgias, myalgias or neck pain Integumentary Denies abscess, Abrasions or rash Neurologic Neurologic: Denies headache(s) or weakness Psychiatric Psychiatric: Denies anxiety, depression or suicidal thoughts Endocrine Endocrinology: Denies polydipsia, polyphagia or polyuria Hematologic/Lymphatic Hematologic/Lymphatic: Denies easy bleeding, easy bruising or lymphadenopathy Allergic/Immunologic Allergic/Immunologic ED: Denies mouth swelling, tongue swelling or urticaria EXAM Physical Exam Const Vital Signs: 03/03/22 05:16 03/03/22 05:40 Temperature 97.2 F L Temperature Source Temporal Pulse Rate 83 Respiratory Rate 18 Blood Pressure 168/97 H Blood Pressure Mean 120 Pulse Ox 99 98 Oxygen Delivery Method Room Air Room Air Positive well nourished and well developed General Appearance ED: well developed and NAD HEENT Reports TM's clear and moist mucous membranes normocephalic and atraumatic; Negative for trauma or tenderness Tympanic Membrane ED: Yes TM's clear Eyes PERRL and EOMs intact bilaterally General Eye ED: Negative for pale conjunctiva or scleral icterus Neck no lymphadenopathy, supple and no JVD General: Negative for tenderness Chest Wall inspection of chest normal and palpation of chest normal Chest: Negative for tenderness Resp normal respiratory effort and clear to auscultation bilaterally Effort and Inspection: Negative for respiratory distress or pain with movement Auscultation: Negative for rhonchi, wheezes or diminished lung sounds Cardio regular rate, regular rhythm, S1 normal heart sound, S2 normal heart sound and no murmurs Peripheral Pulses: pulses 2+ throughout GI normal to inspection, nondistended, normoactive bowel sounds, soft to palpation, non-tender, non-distended and no masses Back/Spine no CVA tenderness and no thoracic nor lumbar tenderness Extremity normal to inspection General Extremety ED: Negative for edema General Extremity: Negative for edema Neuro oriented x3, CN's II-XII intact bilaterally, no sensory deficits noted and gait normal Sensorium / Orientation: awake, alert, oriented to person, oriented to place and oriented to time Motor Exam: strength 5/5 throughout and strength abnormal Psych mental status grossly normal Skin no rashes or lesions noted and no wounds Heart Score History: Slightly/Non-Suspicious ECG: Normal Age: >45 - <65 years Risk Factors: >/= 3 Risk Factors or History of CAD Troponin: </= Normal Limit Score: 3 MDM MDM MDM Narrative Medical decision making narrative: IV line established on arrival. 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 Lab work-up unremarkable. We are still awaiting a D-dimer given her pleuritic pain. Urinalysis was normal with no red blood cells or signs of infection. Care of patient will be turned over to morning physician awaiting D-dimer results and CT a imaging if positive versus home with diagnosis of back pain. I do not feel her chest pain is cardiac. Her heart score is a 3. Lab Data Attestation: I reviewed the patient's lab results. Labs: Laboratory Results - last 24 hr 03/03/22 03/03/22 03/03/22 05:30 05:30 05:30 WBC 6.2 RBC 4.82 Hgb 13.8 Hct 41.3 MCV 85.7 MCH 28.6 MCHC 33.4 RDW Std Deviation 42.6 RDW Coeff of Dona 13.7 Plt Count 285 MPV 10.6 Immature Gran % (Auto) 0.300 Neut % (Auto) 52.3 Lymph % (Auto) 36.9 [place] % (Auto) 7.6 Eos % (Auto) 2.3 Baso % (Auto) 0.6 Absolute Neuts (auto) 3.2 Absolute Lymphs (auto) 2.28 Nucleated RBC % 0 D-Dimer Quant (PE/DVT) Cancelled Sodium 137 Potassium 4.2 Chloride 107 Carbon Dioxide 26.0 Anion Gap 4 L BUN 18 Creatinine 0.66 Estim Creat Clear Calc 76.17 Est GFR (MDRD) Af Amer 118 Est GFR (MDRD) Non-Af 98 BUN/Creatinine Ratio 27.1 H Glucose 71 L Calcium 9.5 Troponin I High Sens Urine Color Urine Clarity Urine pH Ur Specific [place] Urine Protein Urine Glucose (UA) Urine Ketones Urine Occult Blood Urine Nitrite Urine Bilirubin Urine Urobilinogen Ur Leukocyte Esterase Urine RBC Urine WBC Ur Squamous Epith Cells Urine Bacteria Urine Mucus 03/03/22 03/03/22 05:30 06:15 WBC RBC Hgb Hct MCV MCH MCHC RDW Std Deviation RDW Coeff of Dona Plt Count MPV Immature Gran % (Auto) Neut % (Auto) Lymph % (Auto) [place] % (Auto) Eos % (Auto) Baso % (Auto) Absolute Neuts (auto) Absolute Lymphs (auto) Nucleated RBC % D-Dimer Quant (PE/DVT) Sodium Potassium Chloride Carbon Dioxide Anion Gap BUN Creatinine Estim Creat Clear Calc Est GFR (MDRD) Af Amer Est GFR (MDRD) Non-Af BUN/Creatinine Ratio Glucose Calcium Troponin I High Sens < 3 L Urine Color Yellow Urine Clarity Clear Urine pH 7.0 Ur Specific [place] 1.005 Urine Protein Negative Urine Glucose (UA) Normal Urine Ketones Negative Urine Occult Blood Negative Urine Nitrite Negative Urine Bilirubin Negative Urine Urobilinogen Normal Ur Leukocyte Esterase Negative Urine RBC 0 SEEN Urine WBC 0 SEEN Ur Squamous Epith Cells 0 SEEN Urine Bacteria 0 SEEN Urine Mucus 0 SEEN Radiography Diagnostic Testing: Clinical Impression(s) from Imaging Studies Chest X-Ray 03/03/22 05:24 IMPRESSION: No acute cardiopulmonary disease. Electronically Signed: Trevor Man MD at 6:30 EDT , 1 view chest x-ray obtained interpreted by myself as no acute disease process EKG Initial EKG: Attestation: I personally reviewed and interpreted this EKG as follows: Comments: Sinus rhythm with a rate of 79 bpm with no acute ST segment changes Discharge Plan Triage Chief Complaint: Chest Pain ED Provider: Fely Hinds Dx/Rx/DC Orders Prescriptions: No Action famotidine 40 mg tablet 40 mg PO QHS RF: 0 aspirin [Adult Low Dose Aspirin] 81 mg tablet,delayed release (DR/EC) 81 mg PO QODAY RF: 0 fluoxetine 10 mg capsule 10 mg PO DAILY RF: 0 lorazepam [Ativan] 0.5 mg Tablet 0.5 mg PO BID PRN (Reason: Anxiety) RF: 0 lamotrigine 100 mg tablet 50 mg PO DAILY RF: 0 fluticasone propionate [Flonase Allergy Relief] 50 mcg/actuation spray,suspension 2 spray intranasal DAILY PRN (Reason: Allergy Symptoms) RF: 0 ibuprofen 400 mg tablet 400 mg PO TID RF: 0 esomeprazole magnesium [Nexium 24HR] 20 mg capsule,delayed release(DR/EC) 20 mg PO DAILY RF: 0 Primary Care Provider: Ellis Crandall
--- NOTE | 2022-03-03 05:24 | EKG12_ITS ---
Test Reason : CP Blood Pressure : / mmHG Vent. Rate : 079 BPM Atrial Rate : 079 BPM P-R Int : 154 ms QRS Dur : 088 ms QT Int : 366 ms P-R-T Axes : 071 065 065 degrees QTc Int : 419 ms Normal sinus rhythm Normal ECG Confirmed by GLEN KING, JOE ([id number]), technical writer and editor MITA KAISER ([id number]) on 03/07/2022 11:11:24 AM Referred By: MIGUEL Confirmed By:JOE CARROLL MD
--- NOTE | 2022-03-03 05:24 | RAD_ITS ---
INDICATION: chest pain EXAMINATION/TECHNIQUE: X-RAY - XR Chest 1 View COMPARISON: 12/04/2021 and 01/23/2022 FINDINGS: LINES/DEVICES: None. LUNGS: No consolidation, edema or effusion. No pneumothorax. MEDIASTINUM AND CARDIOVASCULAR STRUCTURES: Atherosclerotic calcifications, similar compared to the prior. BONES AND SOFT TISSUES: Unremarkable. RAD/Chest 1 View (Portable) IMPRESSION: No acute cardiopulmonary disease. Electronically Signed: Trevor Man MD at 6:30 EDT ,
[2022-03-03 05:40] VITALS: O2SAT 98
[2022-03-03 05:41] LABS: Absolute Lymphocyte Count 2.28 X10^3/uL (0.83-4.51); Absolute Neutrophil Count 3.2 X10^3/uL (2.0-7.7); Basophil# 0.04 X10^3/uL; Basophil% 0.6 % (0-1); Eosinophil# 0.14 X10^3/uL; Eosinophils% 2.3 % (0-5); Hematocrit 41.3 % (37-47); Hemoglobin 13.8 g/dL (12.0-15.0); Lymphocyte # 2.28 X10^3/ul (0.83-4.51); Lymphocyte % 36.9 % (19-41); Mean Corp Hgb Conc 33.4 g/dL (32-36); Mean Corpuscular Hgb 28.6 pg (27.0-32.0); Mean Corpuscular Volume 85.7 fL (81-99); Mean Platelet Vol. 10.6 fl (6.2-12.0); Monocyte# 0.47 X10^3/uL; Monocyte% 7.6 % (0-10); NRBC Flagged by Analyzer 0 % (0-5); Neutrophil # 3.23 X10^3/uL (2.7-7.7); Neutrophil % 52.3 % (47-70); Platelet Count 285 K/mm3 (150-450); RBC Distribution Width CV 13.7 % (11.6-14.6); RBC Distribution Width SD 42.6 fl (35.1-43.9); Red Blood Count 4.82 M/mm3 (4.2-5.4); White Blood Count 6.2 K/mm3 (4.4-11.0)
[2022-03-03] MEDS: Aspirin 81 MG TAB.CHEW 324 MG PO (05:41)
[2022-03-03] MEDS: 0.9% Normal Saline 1,000 ML 150 ML IV (05:41)
[2022-03-03 05:54] LABS: Anion Gap 4 (5-15); BUN 18 mg/dL (7-18); BUN/Creat Ratio 27.1 RATIO (10-20); Calcium,Total 9.5 mg/dL (8.5-10.1); Chloride 107 mmol/L (98-107); Creatinine, Serum 0.66 mg/dL (0.55-1.02); EST Glomerular Filtration Rate 98 mL/min (>60); Est Glom Filt Rate - Afr Amer 118 mL/min (>60); Estimated Creatinine Clearance 76.17 ml/min; Glucose 71 mg/dL (74-106); Potassium 4.2 mmol/L (3.5-5.1); Sodium Level 137 mmol/L (136-145)
[2022-03-03 06:02] LABS: Troponin-I HS (w/2H Reflex) < 3 pg/mL (3.0-54.0)
[2022-03-03 06:20] LABS: Bacteria 0 SEEN /hpf (None Seen); Mucous, Urine 0 SEEN /hpf (<or=2+); Red Blood Cells-Urine 0 SEEN /hpf (0-5); Squamous Epithelial Cells - UA 0 SEEN /hpf (5-10); White Blood Cells 0 SEEN /hpf (0-5)
[2022-03-03 06:27] LABS: Color, Urine Yellow (Yellow); Glucose, Dipstick Normal (Normal); Ketone-Dipstick Negative (Negative); Leukocyte Esterase-Dipstick Negative /ul (Negative); Nitrite-Dipstick Negative (Negative); Occult Blood-Urine Negative /ul (Negative); Protein-Dipstick Negative (Negative); Specific Gravity, Urine 1.005 (1.002-1.030); Urine Bilirubin Dipstick Negative (Negative); Urine Clarity Clear (Clear); Urine Urobilinogen Normal (Normal)
[2022-03-03 07:27] VITALS: BP 147/82; PULSE 79; RESP 16; O2SAT 98
[2022-03-03 07:45] LABS: Reflex Troponin-HS? (from REC) Y
== END 2022-03-03 07:36 | disposition home or self-care (01) ==
PROVIDERS: Emergency Provider Emergency Medicine; PCP Family Medicine; Visit Provider Emergency Medicine
DX: M54.9 Dorsalgia, unspecified (principal); J44.9 Chronic obstructive pulmonary disease, unspecified; F31.9 Bipolar disorder, unspecified; F60.3 Borderline personality disorder; I25.5 Ischemic cardiomyopathy; I25.10 Atherosclerotic heart disease of native coronary artery without angina pectoris; Z87.891 Personal history of nicotine dependence; I10 Essential (primary) hypertension; Z95.5 Presence of coronary angioplasty implant and graft; R07.9 Chest pain, unspecified; I25.2 Old myocardial infarction
CPT/HCPCS: 36415; 71045; 80048; 81001; 84484; 85025; 85379; 93005; 96361; 96374; 99283; J7030; A4216

== ENCOUNTER 2022-03-12 16:57 | Outpatient (CLI) | payer MEDICAID, SELFPAY ==
[2022-03-12 17:37] LABS: Erythrocyte Sedimentation Rate 13 mm/hr (0-30)
[2022-03-12 18:03] LABS: CRP < 2.90 mg/L (0.0-3.0); LDH 210 U/L (84-246)
[2022-03-14 14:09] LABS: Anti-Centromere B Ab <0.2 AI (0.0-0.9); Anti-Chromatin <0.2 AI (0.0-0.9); Anti-Jo <0.2 AI (0.0-0.9); Anti-Scleroderma-70 AB <0.2 AI (0.0-0.9); RNP Ab <0.2 AI (0.0-0.9); SJOGREN'S Anti-SS-A test < 0.2 AI (0.0-0.9); SJOGREN'S Anti-SS-B test < 0.2 AI (0.0-0.9); Smith Ab <0.2 AI (0.0-0.9)
[2022-03-15 17:40] LABS: Anti-dsDNA Ab <1 IU/mL (0-9)
[2022-03-17 05:07] LABS: Albumin 3.4 g/dL (2.9-4.4); Alpha-1-Globulins 0.3 g/dL (0.0-0.4); Alpha-2-Globulins 0.8 g/dL (0.4-1.0); Cytoplasmic Ab (C-ANCA) <1:20 titer (Neg:<1:20); Endomysial Antibody IgA Negative (Negative); Immunoglobulin A 92 mg/dL (87-352); Immunoglobulin E 11 IU/mL (6-495); Immunoglobulin G 921 mg/dL (586-1602); Immunoglobulin M 105 mg/dL (26-217); PROEL- TOTAL PROTEIN 6.6 g/dL (6.0-8.5)
[2022-03-17 11:23] LABS: Perinuclear Ab (P-ANCA) <1:20 titer (Neg:<1:20); t-Transglutaminase IgA <2 U/mL (0-3)
== END 2022-03-12 23:59 | disposition home or self-care (01) ==
LOC: LAB 16:57
PROVIDERS: PCP Family Medicine; Visit Provider Internal Medicine Gastroenterology
DX: R10.9 Unspecified abdominal pain (principal)
CPT/HCPCS: 36415; 82784; 82785; 83516; 83615; 84165; 85652; 86140; 86225; 86235; 86255; 86256; 86334

== ENCOUNTER → 2022-03-14 | Outpatient (CLI) | payer MEDICAID, SELFPAY ==
[2022-03-17 11:22] LABS: Calprotectin, Stool 20 ug/g (0-120)
== END | disposition home or self-care (01) ==
LOC: LABSPEC 12:27
PROVIDERS: PCP Family Medicine; Visit Provider Internal Medicine Gastroenterology
DX: R10.9 Unspecified abdominal pain (principal)
CPT/HCPCS: 83630; 83993

== ENCOUNTER 2022-03-26 18:02 | Emergency (ER) | payer MEDICAID, SELFPAY ==
[2022-03-26 18:03] VITALS: BP 170/98; PULSE 97; RESP 14; TEMP 37.3; O2SAT 96; BMI 25.8
--- NOTE | 2022-03-26 19:01 | EKG12_ITS ---
Test Reason : Blood Pressure : / mmHG Vent. Rate : 087 BPM Atrial Rate : 087 BPM P-R Int : 144 ms QRS Dur : 090 ms QT Int : 366 ms P-R-T Axes : 059 053 057 degrees QTc Int : 440 ms Normal sinus rhythm Normal ECG Confirmed by JORJE KING, LEONIDES ([id number]), web content editor FILI CASTILLO ([id number]) on 03/28/2022 9:43:37 AM Referred By: DON Confirmed By:LEONIDES RECINOS MD
[2022-03-26 19:05] VITALS: O2SAT 100
[2022-03-26 19:13] LABS: Absolute Lymphocyte Count 0.57 X10^3/uL (0.83-4.51); Absolute Neutrophil Count 2.8 X10^3/uL (2.0-7.7); Basophil# 0.03 X10^3/uL; Basophil% 0.8 % (0-1); Eosinophil# 0.02 X10^3/uL; Eosinophils% 0.5 % (0-5); Lymphocyte # 0.57 X10^3/ul (0.83-4.51); Mean Corp Hgb Conc 33.3 g/dL (32-36); Mean Corpuscular Hgb 28.7 pg (27.0-32.0); Mean Corpuscular Volume 86.2 fL (81-99); Mean Platelet Vol. 10.4 fl (6.2-12.0); Monocyte# 0.33 X10^3/uL; Monocyte% 8.7 % (0-10); NRBC Flagged by Analyzer 0 % (0-5); Neutrophil # 2.83 X10^3/uL (2.7-7.7); Neutrophil % 74.7 % (47-70); POSITIVE DIFFERENTIAL YES; Platelet Count 253 K/mm3 (150-450); RBC Distribution Width CV 13.7 % (11.6-14.6); RBC Distribution Width SD 43.7 fl (35.1-43.9); Red Blood Count 4.87 M/mm3 (4.2-5.4); White Blood Count 3.8 K/mm3 (4.4-11.0)
--- NOTE | 2022-03-26 19:14 | RAD_ITS ---
STUDY: X-RAY CHEST REASON FOR EXAM: Female, 56 years old. chest pain TECHNIQUE: 1 view COMPARISON: 03/03/2022 FINDINGS: Cardiomediastinal silhouette is unremarkable. Costophrenic angles are sharp. Lungs are hyperinflated but clear. The trachea is midline. There is no pneumothorax. The bones are grossly intact. RAD/Chest 1 View (Portable) IMPRESSION: No acute cardiopulmonary process. Electronically Signed: Louis Stephens MD at 19:30 EDT ,
[2022-03-26 19:30] LABS: Anion Gap 6 (5-15); BUN 6 mg/dL (7-18); BUN/Creat Ratio 8.9 RATIO (10-20); Calcium,Total 10.1 mg/dL (8.5-10.1); Chloride 103 mmol/L (98-107); Creatinine, Serum 0.68 mg/dL (0.55-1.02); EST Glomerular Filtration Rate 96 mL/min (>60); Est Glom Filt Rate - Afr Amer 116 mL/min (>60); Estimated Creatinine Clearance 70.54 ml/min; Glucose 84 mg/dL (74-106); Potassium 3.4 mmol/L (3.5-5.1); Sodium Level 135 mmol/L (136-145); Troponin-I HS (w/2H Reflex) 5 pg/mL (3.0-54.0)
--- NOTE | 2022-03-26 19:36 | ED.VIS.CHEST ---
HPI History of Present Illness Chief Complaint: Chest Pain Informant: patient Onset/Context/Timing Onset: Days Activity at onset: gradual Timing: Intermittent Quality: Positive for Sharp and Stabbing Location: Left Chest Current Severity: Mild Maximum Severity: Mild Worsened By: - (Lying flat. Better off and walking.) Relieved By: - (Up and walking.) Associated Symptoms: Negative for Nausea, Vomiting, Diaphoresis, Dyspnea, Cough, Fever, Lightheadedness and Palpitations Narrative Narrative: 56-year-old female history of CAD, prior VA and cardiac stent. Also reflux and bipolar disorder. She has frequent left-sided chest pain. Is having left-sided chest pain that began last night. She states she does have anxiety and sometimes she thinks that is related to the chest pain. She describes it as sharp and stabbing. It is worse supine and better when she is upright and walking. She denies any pleuritic pain. No hemoptysis. No history of DVT or PE or risk factors. No leg pain or swelling. Prior Similar Symptoms: Yes Recent Illness/Hospitalization: No CVD Risk Factors: Positive for Smoking; Negative for Diabetes PE Risk Factors: Negative for Recent Travel/Surgery, Recent Immobilization, Prior DVT or PE, Cancer and OCP + Smoking + >/=35 TAD Risk Factors: Negative for Marfan's Syndrome [facility] Medical History Abdominal pain Adverse drug reaction Anxiety disorder Asthma-COPD overlap syndrome Atherosclerotic heart disease of jam[place] coronary artery without angina pectoris Back pain Barretts esophagus Bipolar affective disorder Borderline personality disorder Chest pain of uncertain etiology Chest pain, non-cardiac Chronic constipation Chronic left-sided thoracic back pain COPD (chronic obstructive pulmonary disease) Depression Difficulty swallowing Eloped from emergency department Essential (primary) hypertension Former smoker Gastric reflux GERD (gastroesophageal reflux disease) Headache History of echocardiogram History of Holter monitoring History of non-ST elevation myocardial infarction (NSTEMI) (08/10/21) History of ST elevation myocardial infarction (STEMI) (12/18/20) Intermittent palpitations Irritable bowel syndrome with diarrhea Ischemic cardiomyopathy Leg cramps Myocardial infarct Nicotine dependence 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) Post-menopausal Shortness of breath Shortness of breath on exertion Syncope Takotsubo cardiomyopathy (08/10/21) Ulcerative colitis Wears glasses Home Medications lorazepam [Ativan] 0.5 mg PO BID PRN 06/19/21 [History Last Taken 1 Week Ago ~08/03/21] aspirin 81 mg tablet,delayed release 81 mg PO QODAY 07/13/21 [History Last Taken 08/07/21] lamotrigine 50 mg PO DAILY 08/10/21 [History Last Taken 1 Week Ago ~08/03/21] fluticasone propionate [Flonase Allergy Relief] 2 spray INTRANASAL DAILY PRN 10/29/21 [History Last Taken Unknown] fluoxetine 10 mg capsule 10 mg PO DAILY 12/14/21 [History Last Taken Unknown] ibuprofen 400 mg tablet 400 mg PO TID 01/22/22 [History Last Taken Unknown] esomeprazole magnesium 20 mg capsule,delayed release 20 mg PO DAILY cap 01/30/22 [History Last Taken Unknown] famotidine 40 mg tablet 40 mg PO QHS tab 01/30/22 [History Last Taken Unknown] hydrocodone-acetaminophen 1 tab PO Q6H PRN 3 Days #10 tab 03/03/22 [Rx Last Taken Unknown] mesalamine 1.2 gram tablet,delayed release 2.4 g PO BID 56 Days #224 tab 03/12/22 [Rx Last Taken Unknown] Allergy/AdvReac Type Severity Reaction Status Date / Time morphine Allergy Hives Verified 03/26/22 18:03 amlodipine AdvReac Intermediate chest Verified 03/26/22 18:03 pain and cannot breathe carvedilol [From Coreg] AdvReac Intermediate throat Verified 03/26/22 18:03 closing up and chest pressure citalopram [From Celexa] AdvReac NAUSEATED Verified 03/26/22 18:03 AND IRRITABLE lisinopril AdvReac SOB, chest Verified 03/26/22 18:03 tightness,throat closing venlafaxine [From Effexor] AdvReac DIDN'T Verified 03/26/22 18:03 WORK Family History Father CAD (coronary artery disease) Myocardial infarction Surgical History H/O section History of cardiac catheterization (08/11/21) History of coronary artery stent placement (12/18/20) History of esophagogastroduodenoscopy (EGD) History of left heart catheterization (05/17/21) Social History household members: none Smoking Status: Former smoker quit date: 01/23/21 pack-years: 30 how long ago did patient quit smokin days ago alcohol intake: never substance use type: does not use caffeine: Yes Type: coffee Number of servings: 2 ROS ROS ED ROS Narrative Chest pain. Review of Systems ROS Unobtainable: Denies due to encephalopathy Constitutional Constitutional ED: Denies fever(s) Eyes Eyes: Denies none ENT ENT ED: Denies ear pain Cardiovascular Cardiovascular: Reports as per HPI and chest pain; Denies palpitations or racing heartbeat Respiratory/Chest Respiratory/Chest: Denies cough or dyspnea Gastrointestinal Gastrointestinal: Denies abdominal pain, diarrhea, nausea or vomiting Genitourinary Genitourinary ED: Denies dysuria Musculoskeletal Musculoskeletal: Denies myalgias Integumentary Denies rash Neurologic Neurologic: Denies headache(s) Psychiatric Psychiatric: Denies depression Endocrine Endocrinology: Denies polyuria Hematologic/Lymphatic Hematologic/Lymphatic: Denies easy bruising Allergic/Immunologic Allergic/Immunologic ED: Denies urticaria EXAM Physical Exam Narrative Exam Narrative: 56-year-old female no acute distress. Vital signs stable afebrile. Pulse ox 96% on room air no hypoxia. HEENT exam normal. Lungs are clear. Heart regular rate and rhythm no murmur. Chest wall nontender. Abdomen soft nontender. Equal symmetrical radial pulses. Moving all 4 extremities. Calves nontender without edema or cords. Normal exam Const Vital Signs: 03/26/22 18:03 03/26/22 19:05 03/26/22 20:09 Temperature 99.2 F H Temperature Source Temporal Pulse Rate 97 75 Respiratory Rate 14 19 H Respiratory Effort Normal Non-Labored Blood Pressure 170/98 H 143/84 H Blood Pressure Mean 122 103 Pulse Ox 96 100 Oxygen Delivery Method Room Air Room Air Positive well nourished and well developed; Negative for obese, cachectic, contractures or unkempt General Appearance ED: well developed and NAD; Negative for unkempt, cachectic, contractures or pallor Nutritional Appearance: Negative for cachectic or obese HEENT Reports moist mucous membranes normocephalic; Negative for atraumatic, trauma or tenderness Eyes PERRL and EOMs intact bilaterally Neck no lymphadenopathy, supple and no JVD General: Negative for tenderness Chest Wall inspection of chest normal; Negative for palpation of chest normal Chest: Negative for tenderness Resp normal respiratory effort and No clear to auscultation bilaterally Effort and Inspection: respiratory distress Auscultation: Negative for rales, rhonchi or wheezes Cardio regular rate, regular rhythm, S1 normal heart sound, S2 normal heart sound and no murmurs Rate: Negative for bradycardia or tachycardic Rhythm: Negative for abnormal rhythm GI normal to inspection, nondistended, normoactive bowel sounds, soft to palpation, non-tender, non-distended and no masses; Negative for hepatosplenomegaly Auscultation: Negative for hyperactive bowel sounds Palpation: Negative for splenomegaly or mass Back/Spine no CVA tenderness and no thoracic nor lumbar tenderness General Back: Negative for CVA tenderness Cervical Spine: Negative for cervical spine tenderness Extremity normal to inspection General Extremety ED: Negative for edema, pulses abnormal or tenderness General Extremity: Negative for edema or pulses abnormal Neuro oriented x3 Sensorium / Orientation: awake, alert, oriented to person, oriented to place and oriented to time Motor Exam: strength 5/5 throughout Psych mental status grossly normal Appearance: Negative for unkempt Attitude: No agitated Mood & Affect: anxious; Negative for depressed or tearful Skin no rashes or lesions noted and no wounds General Skin Exam: Negative for jaundice or pallor Heart Score History: Slightly/Non-Suspicious ECG: Normal Age: >45 - <65 years Risk Factors: >/= 3 Risk Factors or History of CAD Troponin: </= Normal Limit Score: 3 MDM MDM MDM Narrative Medical decision making narrative: 56-year-old female with atypical chest pain with a history of cardiac disease. Undergo a cardiac work-up. Repeat exam patient is doing well at 9:46 PM. We discussed her test results. She will be discharged to home. Outpatient follow-up. Lab Data Attestation: I reviewed the patient's lab results. Lab results narrative: The electrolytes show sodium 135. Potassium 3.4. Gap is 6. Normal BUN creatinine. Glucose 84. Troponin 5. Chest x-ray unremarkable. Labs: Laboratory Results - last 24 hr 03/26/22 03/26/22 19:00 19:00 WBC 3.8 L RBC 4.87 Hgb 14.0 Hct 42.0 MCV 86.2 MCH 28.7 MCHC 33.3 RDW Std Deviation 43.7 RDW Coeff of Dona 13.7 Plt Count 253 MPV 10.4 Immature Gran % (Auto) 0.300 Neut % (Auto) 74.7 H Lymph % (Auto) 15.0 L [place] % (Auto) 8.7 Eos % (Auto) 0.5 Baso % (Auto) 0.8 Absolute Neuts (auto) 2.8 Absolute Lymphs (auto) 0.57 L Nucleated RBC % 0 Differential Comment SCANNED Sodium 135 L Potassium 3.4 L Chloride 103 Carbon Dioxide 26.0 Anion Gap 6 BUN 6 L Creatinine 0.68 Estim Creat Clear Calc 70.54 Est GFR (MDRD) Af Amer 116 Est GFR (MDRD) Non-Af 96 BUN/Creatinine Ratio 8.9 L Glucose 84 Calcium 10.1 Troponin I High Sens 5 Radiography Chest X-Ray - ED: 1 View, Read by ED Physician, Read by Radiologist, Heart, Lungs, Mediastinum, Bony Structures, No Acute Disease and Chronic Changes Diagnostic Testing: Clinical Impression(s) from Imaging Studies Chest X-Ray 03/26/22 19:14 IMPRESSION: No acute cardiopulmonary process. Electronically Signed: Louis Stephens MD at 19:30 EDT , Chest x-ray, portable, single view interpreted by myself and the radiologist shows no acute abnormality. Rhythm Strip Rhythm Strip: Sinus Rhythm Rate: 87 Ectopy: None EKG Initial EKG: Attestation: I personally reviewed and interpreted this EKG as follows: Interpretation: Sinus Rhythm and No Acute Injury Pattern Comments: Normal sinus rhythm rate 87 no acute signs of VA or ischemia. Prior EKG tracings: available for review Prior: Unchanged Discharge Plan Triage Chief Complaint: Chest Pain ED Provider: Yonas Guzman Dx/Rx/DC Orders Clinical Impression: Chest pain, Atherosclerotic heart disease of jamul coronary artery without angina pectoris, History of coronary artery stent placement Instructions: ED Chest Pain, Uncertain Cause Prescriptions: No Action famotidine 40 mg tablet 40 mg PO QHS RF: 0 aspirin [Adult Low Dose Aspirin] 81 mg tablet,delayed release (DR/EC) 81 mg PO QODAY RF: 0 fluoxetine 10 mg capsule 10 mg PO DAILY RF: 0 lorazepam [Ativan] 0.5 mg Tablet 0.5 mg PO BID PRN (Reason: Anxiety) RF: 0 lamotrigine 100 mg tablet 50 mg PO DAILY RF: 0 fluticasone propionate [Flonase Allergy Relief] 50 mcg/actuation spray,suspension 2 spray intranasal DAILY PRN (Reason: Allergy Symptoms) RF: 0 hydrocodone-acetaminophen 5-325 mg tablet 1 tab PO Q6H PRN (Reason: pain) 3 Days Qty: 10 RF: 0 ibuprofen 400 mg tablet 400 mg PO TID RF: 0 esomeprazole magnesium [Nexium 24HR] 20 mg capsule,delayed release(DR/EC) 20 mg PO DAILY RF: 0 mesalamine 1.2 gram tablet,delayed release (DR/EC) 2.4 g PO BID 56 Days Qty: 224 RF: 0 Primary Care Provider: Ellis Crandall Referrals: Ellis Crandall MD [Primary Care Provider] - 1 Week if not improving Activity Restrictions/Additional Instructions: Your EKG, chest x-ray and labs tonight were all normal. Follow-up with your primary care physician. Return if worse. Disposition Disposition: Home, Self Care
[2022-03-26 19:52] LABS: Differential Comment SCANNED; Differential Indicated SCAN CRITERIA MET
[2022-03-26 20:09] VITALS: BP 143/84; PULSE 75; RESP 19
[2022-03-26 21:10] LABS: Reflex Troponin-HS? (from REC) Y
[2022-03-26 21:52] LABS: Troponin-I HS < 3 pg/mL (3.0-54.0)
[2022-03-28 13:15] LABS: Pathologist Review Reviewed
== END 2022-03-26 22:02 | disposition home or self-care (01) ==
PROVIDERS: Emergency Provider Emergency Medicine; PCP Family Medicine; Visit Provider Emergency Medicine
DX: R07.9 Chest pain, unspecified (principal); J44.9 Chronic obstructive pulmonary disease, unspecified; F31.9 Bipolar disorder, unspecified; Z87.891 Personal history of nicotine dependence; I25.10 Atherosclerotic heart disease of native coronary artery without angina pectoris; I25.5 Ischemic cardiomyopathy; I10 Essential (primary) hypertension; Z95.5 Presence of coronary angioplasty implant and graft; F41.9 Anxiety disorder, unspecified
CPT/HCPCS: 71045; 80048; 84484; 85025; 93005; 99284; A4216

== ENCOUNTER 2022-04-03 17:40 | Emergency (ER) | payer MEDICAID, SELFPAY ==
[2022-04-03 17:41] VITALS: BP 133/91; PULSE 89; RESP 15; TEMP 36; O2SAT 100; BMI 25.4
--- NOTE | 2022-04-03 18:02 | ED.VIS.BACK ---
HPI History of Present Illness Chief Complaint: Back Detail of Chief Complaint: COVID positive. Informant: patient Onset/Context/Timing Onset: Days Context: Gradual Onset Timing: Continuous Quality: Dull and Aching Location: Thoracic Current Severity: Mild Maximum Severity: Mild Worsened by: improves with Movement Relieved by: Nothing Associated Symptoms Associated Symptoms: Negative for Numbness, Tingling, Radiation to Right Leg, Radiation to Left Leg, Fever, Abdominal Pain, Dysuria, Unable to Ambulate, Unable to Transfer, Urinary Retention, Urinary Incontinence, Constipation and Fecal Incontinence Narrative Narrative: 56-year-old female history of anxiety, COPD, irritable bowel, CAD with prior OK and stent. Tested positive for COVID on March 27. Says she just has not felt well cough of white sputum. Body aches primarily in her back. No hemoptysis. No fever or chills. Nausea and diarrhea no vomiting. She is day 9 of her symptoms. Prior similar symptoms: Yes Recent Illness/Hospitalization: No PFSH PFSH Medical History Abdominal pain Adverse drug reaction Anxiety disorder Asthma-COPD overlap syndrome Atherosclerotic heart disease of [place] coronary artery without angina pectoris Back pain Barretts esophagus Bipolar affective disorder Borderline personality disorder Chest pain of uncertain etiology Chest pain, non-cardiac Chronic constipation Chronic left-sided thoracic back pain COPD (chronic obstructive pulmonary disease) Depression Difficulty swallowing Eloped from emergency department Essential (primary) hypertension Former smoker Gastric reflux GERD (gastroesophageal reflux disease) Headache History of echocardiogram History of Holter monitoring History of non-ST elevation myocardial infarction (NSTEMI) (08/10/21) History of ST elevation myocardial infarction (STEMI) (12/18/20) Intermittent palpitations Irritable bowel syndrome with diarrhea Ischemic cardiomyopathy Leg cramps Myocardial infarct Nicotine dependence 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) Post-menopausal Shortness of breath Shortness of breath on exertion Syncope Takotsubo cardiomyopathy (08/10/21) Ulcerative colitis Wears glasses Home Medications lorazepam [Ativan] 0.5 mg PO BID PRN 06/19/21 [History Last Taken 1 Week Ago ~08/03/21] aspirin 81 mg tablet,delayed release 81 mg PO QODAY 07/13/21 [History Last Taken 08/07/21] lamotrigine 50 mg PO DAILY 08/10/21 [History Last Taken 1 Week Ago ~08/03/21] fluticasone propionate [Flonase Allergy Relief] 2 spray INTRANASAL DAILY PRN 10/29/21 [History Last Taken Unknown] fluoxetine 10 mg capsule 10 mg PO DAILY 12/14/21 [History Last Taken Unknown] ibuprofen 400 mg tablet 400 mg PO TID 01/22/22 [History Last Taken Unknown] esomeprazole magnesium 20 mg capsule,delayed release 20 mg PO DAILY cap 01/30/22 [History Last Taken Unknown] famotidine 40 mg tablet 40 mg PO QHS tab 01/30/22 [History Last Taken Unknown] hydrocodone-acetaminophen 1 tab PO Q6H PRN 3 Days #10 tab 03/03/22 [Rx Last Taken Unknown] mesalamine 1.2 gram tablet,delayed release 2.4 g PO BID 56 Days #224 tab 03/12/22 [Rx Last Taken Unknown] Allergy/AdvReac Type Severity Reaction Status Date / Time morphine Allergy Hives Verified 03/26/22 18:03 amlodipine AdvReac Intermediate chest Verified 03/26/22 18:03 pain and cannot breathe carvedilol [From Coreg] AdvReac Intermediate throat Verified 03/26/22 18:03 closing up and chest pressure citalopram [From Celexa] AdvReac NAUSEATED Verified 03/26/22 18:03 AND IRRITABLE lisinopril AdvReac SOB, chest Verified 03/26/22 18:03 tightness,throat closing venlafaxine [From Effexor] AdvReac DIDN'T Verified 03/26/22 18:03 WORK Family History Father CAD (coronary artery disease) Myocardial infarction Surgical History H/O section History of cardiac catheterization (08/11/21) History of coronary artery stent placement (12/18/20) History of esophagogastroduodenoscopy (EGD) History of left heart catheterization (05/17/21) Social History household members: none Smoking Status: Former smoker quit date: 01/23/21 pack-years: 30 how long ago did patient quit smokin days ago alcohol intake: never substance use type: does not use caffeine: Yes Type: coffee Number of servings: 2 ROS ROS ED ROS Narrative Cough. Body aches. Review of Systems ROS Unobtainable: Denies due to encephalopathy Constitutional Constitutional ED: Denies fever(s) Eyes Eyes: Denies change in vision ENT ENT ED: Denies ear pain or rhinorrhea Cardiovascular Cardiovascular: Denies chest pain Respiratory/Chest Respiratory/Chest: Reports sputum; Denies dyspnea Gastrointestinal Gastrointestinal: Reports diarrhea and nausea; Denies abdominal pain, constipation, melena or vomiting Genitourinary Genitourinary ED: Denies dysuria or hematuria Musculoskeletal Musculoskeletal: Reports arthralgias, back pain and myalgias Integumentary Denies rash Neurologic Neurologic: Denies headache(s) Psychiatric Psychiatric: Denies depression Endocrine Endocrinology: Denies polyuria Hematologic/Lymphatic Hematologic/Lymphatic: Denies easy bruising Allergic/Immunologic Allergic/Immunologic ED: Denies urticaria EXAM Physical Exam Narrative Exam Narrative: 56-year-old female no acute distress vital signs stable afebrile. Pulse ox 100% on room air no signs hypoxia. HEENT exam unremarkable. Neck nontender no JVD. No lymphadenopathy. Lungs clear to auscultation bilaterally. Heart regular rate and rhythm rate about 90 no murmur. Abdomen soft nontender. Moves all 4 extremities. Calves nontender without edema or cords. Back diffuse tenderness on her back and also rib cage. No signs of trauma. No history of trauma. Neurologic exam unremarkable. She is anxious. Const Vital Signs: 04/03/22 17:41 Temperature 96.8 F L Temperature Source Temporal Pulse Rate 89 Respiratory Rate 15 Blood Pressure 133/91 H Blood Pressure Mean 105 Pulse Ox 100 Oxygen Delivery Method Room Air Positive well nourished and well developed; Negative for obese, cachectic, contractures or unkempt General Appearance ED: well developed and NAD; Negative for unkempt, cachectic, contractures or pallor Nutritional Appearance: Negative for cachectic or obese HEENT Reports moist mucous membranes Negative for trauma or tenderness Eyes PERRL and EOMs intact bilaterally General Eye ED: Negative for pale conjunctiva or scleral icterus Neck no lymphadenopathy, supple and no JVD General: Negative for tenderness Resp normal respiratory effort and clear to auscultation bilaterally Effort and Inspection: Negative for pain with movement or other Auscultation: Negative for rales or rhonchi Cardio regular rate, regular rhythm, S1 normal heart sound, S2 normal heart sound and no murmurs GI normal to inspection, nondistended, normoactive bowel sounds, soft to palpation, non-tender, non-distended and no masses Inspection: Negative for abdominal distention Auscultation: Negative for hyperactive bowel sounds Palpation: Negative for tender, guarding or rebound tenderness present Back/Spine normal to inspection and no thoracic nor lumbar tenderness General Back: Negative for CVA tenderness Extremity normal to inspection General Extremety ED: Negative for edema or tenderness General Extremity: Negative for edema Neuro oriented x3 and no sensory deficits noted Sensorium / Orientation: alert; Negative for confused, lethargic or stuporous Motor Exam: strength 5/5 throughout Psych mental status grossly normal Appearance: Negative for unkempt Attitude: No agitated and No other Mood & Affect: Negative for depressed or tearful Skin no rashes or lesions noted and no wounds General Skin Exam: Negative for jaundice or pallor MDM MDM MDM Narrative Medical decision making narrative: 56-year-old female COVID-positive on third. Day 9 of her symptoms. Complaining of back pain which I think is from myalgias from the virus. I will get a chest x-ray to rule out a concurrent pneumonia. Radiography Diagnostic Testing: Clinical Impression(s) from Imaging Studies Chest X-Ray 04/03/22 18:32 IMPRESSION: Stable, nonacute portable x-ray examination of the chest. Electronically Signed: Malik Torres MD ([place]) at 18:45 EDT Reading Location ID and State: [address] [place] [address] , Service support , Chest x-ray, portable, single view interpreted myself shows no acute abnormality. Normal cardiac silhouette. Normal mediastinum. No infiltrates. Discharge Plan Triage Chief Complaint: Back ED Provider: Yonas Guzman Dx/Rx/DC Orders Clinical Impression: COVID-19, Myalgia, History of COPD, History of OK (myocardial infarction) Instructions: Symptoms of COVID-19 Infection Prescriptions: No Action famotidine 40 mg tablet 40 mg PO QHS RF: 0 aspirin [Adult Low Dose Aspirin] 81 mg tablet,delayed release (DR/EC) 81 mg PO QODAY RF: 0 fluoxetine 10 mg capsule 10 mg PO DAILY RF: 0 lorazepam [Ativan] 0.5 mg Tablet 0.5 mg PO BID PRN (Reason: Anxiety) RF: 0 lamotrigine 100 mg tablet 50 mg PO DAILY RF: 0 fluticasone propionate [Flonase Allergy Relief] 50 mcg/actuation spray,suspension 2 spray intranasal DAILY PRN (Reason: Allergy Symptoms) RF: 0 hydrocodone-acetaminophen 5-325 mg tablet 1 tab PO Q6H PRN (Reason: pain) 3 Days Qty: 10 RF: 0 ibuprofen 400 mg tablet 400 mg PO TID RF: 0 esomeprazole magnesium [Nexium 24HR] 20 mg capsule,delayed release(DR/EC) 20 mg PO DAILY RF: 0 mesalamine 1.2 gram tablet,delayed release (DR/EC) 2.4 g PO BID 56 Days Qty: 224 RF: 0 Primary Care Provider: Ellis Crandall Referrals: Ellis Crandall MD [Primary Care Provider] - 1 Week if not improving Activity Restrictions/Additional Instructions: Plenty of fluids and rest. Tylenol and Motrin for body aches and fever. Follow-up with your doctor if not improving. Disposition Disposition: Home, Self Care
--- NOTE | 2022-04-03 18:32 | RAD_ITS ---
STUDY: X-RAY CHEST REASON FOR EXAM: Female, 56 years old. cough and covid TECHNIQUE: AP COMPARISON: 03/26/2022 FINDINGS: The lungs are clear and expanded. There is no demonstrated pleural abnormality. Normal size heart. Normal mediastinum and kirsten. Normal visualized pulmonary arteries. Normal visualized aortic arch and descending thoracic aorta. Normal visualized thoracic spine. Normal visualized ribs, clavicles, and shoulders. There is no demonstrated abnormality of the visualized soft tissue structures of the upper abdomen. RAD/Chest 1 View (Portable) IMPRESSION: Stable, nonacute portable x-ray examination of the chest. Electronically Signed: Malik Torres MD ([place]) at 18:45 EDT ,
== END 2022-04-03 19:00 | disposition home or self-care (01) ==
PROVIDERS: Emergency Provider Emergency Medicine; PCP Family Medicine; Visit Provider Emergency Medicine
DX: U07.1 COVID-19 (principal); J44.9 Chronic obstructive pulmonary disease, unspecified; Z87.891 Personal history of nicotine dependence; F41.9 Anxiety disorder, unspecified; I25.5 Ischemic cardiomyopathy; R15.9 Full incontinence of feces; I25.10 Atherosclerotic heart disease of native coronary artery without angina pectoris; I10 Essential (primary) hypertension; M54.9 Dorsalgia, unspecified; I25.2 Old myocardial infarction; Z95.5 Presence of coronary angioplasty implant and graft
CPT/HCPCS: 71045; 99282

== ENCOUNTER 2022-05-24 18:54 | Emergency (ER) | payer MEDICAID, SELFPAY ==
[2022-05-24 18:55] VITALS: BP 140/82; BP 160/130; PULSE 79; RESP 16; TEMP 36.3; O2SAT 99; BMI 25.4
--- NOTE | 2022-05-24 18:59 | EKG12_ITS ---
Test Reason : CP/BACK Blood Pressure : / mmHG Vent. Rate : 076 BPM Atrial Rate : 076 BPM P-R Int : 152 ms QRS Dur : 090 ms QT Int : 384 ms P-R-T Axes : 067 056 058 degrees QTc Int : 432 ms Normal sinus rhythm Normal ECG Confirmed by GLEN KING, JOE ([id number]), online editor FILI CASTILLO ([id number]) on 05/29/2022 10:14:35 AM Referred By: LESLIE Confirmed By:JOE CARROLL MD
--- NOTE | 2022-05-24 19:04 | EDS_ITS ---
HPI History of Present Illness Chief Complaint: Chest Pain Detail of Chief Complaint: Chest pain lateral her left breast and midsternal Onset/Context/Timing Onset: Today and Yesterday Activity at onset: sudden Timing: Intermittent (Varies in duration) Quality: Positive for Tightness (Midsternal) and - (Adderall left breast pinching) Location: Substernal and Left Chest Current Severity: Mild Maximum Severity: Moderate Worsened By: Nothing Relieved By: Nothing Associated Symptoms: Negative for Nausea, Vomiting, Diaphoresis, Dyspnea, Cough, Fever, Lightheadedness, Acid Reflux or Palpitations Narrative Narrative: Patient is a 56-year-old woman with history of coronary disease, hyperlipidemia, smoking, COPD who presents with substernal chest pain and lateral wall chest pain. The substernal described as pressure. The lateral wall is described as a pinching sensation. Pain is transient to prolonged up to 1520 minutes. She denies radiation. She denies associated symptoms. She states she had pain yesterday saw her doctor. EKG was obtained and was normal. The chest pain occurs at rest. Patient denies history of reflux. She denies black or maroon-colored stool. She denies history of VTE. She has no risk factors. She denies leg pain, swelling or discoloration. She denies headache, visual, ocular auditory symptoms. Prior Similar Symptoms: Yes (Predominantly noncardiac) Recent Illness/Hospitalization: No CVD Risk Factors: Positive for Hypercholesterolemia and Smoking; Negative for Hypertension, Diabetes or Family History 1' </=55 PE Risk Factors: Negative for Recent Travel/Surgery, Recent Immobilization, Prior DVT or PE, Cancer or OCP + Smoking + >/=35 TAD Risk Factors: Negative for Marfan's Syndrome, Hypertension or Family History [facility] Medical History Abdominal pain Adverse drug reaction Anxiety disorder Asthma-COPD overlap syndrome Atherosclerotic heart disease of [place] coronary artery without angina pectoris Back pain Barretts esophagus Bipolar affective disorder Borderline personality disorder Chest pain of uncertain etiology Chest pain, non-cardiac Chronic constipation Chronic left-sided thoracic back pain COPD (chronic obstructive pulmonary disease) Depression Difficulty swallowing Eloped from emergency department Essential (primary) hypertension Former smoker Gastric reflux GERD (gastroesophageal reflux disease) Headache History of echocardiogram History of Holter monitoring History of non-ST elevation myocardial infarction (NSTEMI) (08/10/21) History of ST elevation myocardial infarction (STEMI) (12/18/20) Intermittent palpitations Irritable bowel syndrome with diarrhea Ischemic cardiomyopathy Leg cramps Myocardial infarct Nicotine dependence 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) Post-menopausal Shortness of breath Shortness of breath on exertion Syncope Takotsubo cardiomyopathy (08/10/21) Ulcerative colitis Wears glasses Home Medications lorazepam 0.5 mg tablet (Ativan) 0.5 mg PO BID PRN Anxiety 06/19/21 [History Last Taken 1 Week Ago ~08/03/21] aspirin 81 mg tablet,delayed release (Adult Low Dose Aspirin) 81 mg PO QODAY HEALTH MAINTENANCE 07/13/21 [History Last Taken 08/07/21] fluticasone propionate 50 mcg/actuation nasal spray,suspension (Flonase Allergy Relief) 2 spray intranasal DAILY PRN Allergy Symptoms 10/29/21 [History Last Taken Unknown] fluoxetine 10 mg capsule 10 mg PO DAILY 12/14/21 [History Last Taken Unknown] ibuprofen 400 mg tablet 400 mg PO TID 01/22/22 [History Last Taken Unknown] esomeprazole magnesium 20 mg capsule,delayed release (Nexium 24HR) 20 mg PO DAILY 01/30/22 [History Last Taken Unknown] famotidine 40 mg tablet 40 mg PO BID #90 tabs 04/17/22 [Rx Last Taken Unknown] albuterol sulfate 90 mcg/actuation aerosol inhaler (Ventolin HFA) 2 inh inhalation Q6H PRN 05/11/22 [History Last Taken Unknown] cholecalciferol (vitamin D3) 1,250 mcg (50,000 unit) capsule 1,250 mcg PO QWEEK 05/11/22 [History Last Taken Unknown] lamotrigine 150 mg tablet 75 mg PO DAILY 05/11/22 [History Last Taken Unknown] potassium chloride 10 mEq capsule,extended release 10 meq PO .QOD 05/11/22 [History Last Taken Unknown] budesonide 160 mcg-glycopyr 9 mcg-formot 4.8 mcg/actuation HFA inhaler (Breztri Aerosphere) 2 inh inhalation BID #10.7 grams 05/23/22 [Rx Last Taken Unknown] spacer #1 ea 05/23/22 [Rx Last Taken Unknown] Allergy/AdvReac Type Severity Reaction Status Date / Time morphine Allergy Hives Verified 05/24/22 18:59 amlodipine AdvReac Intermediate chest Verified 05/24/22 18:59 pain and cannot breathe carvedilol [From Coreg] AdvReac Intermediate throat Verified 05/24/22 18:59 closing up and chest pressure citalopram [From Celexa] AdvReac NAUSEATED Verified 05/24/22 18:59 AND IRRITABLE lisinopril AdvReac SOB, chest Verified 05/24/22 18:59 tightness,throat closing venlafaxine [From Effexor] AdvReac DIDN'T Verified 05/24/22 18:59 WORK Family History Father CAD (coronary artery disease) Myocardial infarction Surgical History H/O section History of cardiac catheterization (08/11/21) History of coronary artery stent placement (12/18/20) History of esophagogastroduodenoscopy (EGD) History of left heart catheterization (05/17/21) Social History household members: none Smoking Status: Current some day smoker tobacco type: cigarettes how long ago did patient quit smokin days ago alcohol intake: never substance use type: does not use caffeine: Yes Type: coffee Number of servings: 2 ROS ROS ED Constitutional Constitutional ED: Denies chills, fever(s), subjective, sweats or weight loss Eyes Eyes: Reports none ENT ENT ED: Denies ear pain, rhinorrhea or sore throat Cardiovascular Cardiovascular: Reports as per HPI; Denies orthopnea or paroxysmal nocturnal dyspnea Respiratory/Chest Respiratory/Chest: Denies cough, dyspnea, dyspnea on exertion, orthopnea, paroxysmal nocturnal dyspnea or sputum Gastrointestinal Gastrointestinal: Denies abdominal pain, constipation, diarrhea, melena, nausea or vomiting Genitourinary Genitourinary ED: Denies dysuria, hematuria or urinary frequency Musculoskeletal Musculoskeletal: Denies arthralgias, back pain or neck pain Integumentary Denies abscess or rash Neurologic Neurologic: Denies headache(s), paresthesias or weakness Psychiatric Psychiatric: Denies anxiety or depression Endocrine Endocrinology: Denies cold intolerance or heat intolerance Hematologic/Lymphatic Hematologic/Lymphatic: Denies easy bleeding, easy bruising or lymphadenopathy EXAM Physical Exam Const Vital Signs: 05/24/22 18:55 05/24/22 18:55 05/24/22 18:59 Temperature 97.3 F L Temperature Source Temporal Pulse Rate 79 Respiratory Rate 16 Respiratory Effort Normal Non-Labored Blood Pressure 160/130 H 140/82 H Blood Pressure Mean 140 101 Pulse Ox 99 Oxygen Delivery Method Room Air Positive well nourished and obese Constitutional Narrative: Slow psychomotor skills. Flat affect. General Appearance ED: NAD; Negative for pallor Nutritional Appearance: obese HEENT Reports TM's clear and moist mucous membranes HEENT Narrative: Nares patent. Teeth normal. Uvula midline. There is no erythema or exudate of the posterior pharynx. There is no evidence of angioedema. Trachea is midline. normocephalic and atraumatic Tympanic Membrane ED: Yes TM's clear Eyes PERRL and EOMs intact bilaterally General Eye ED: Negative for pale conjunctiva or scleral icterus Neck no lymphadenopathy and supple Chest Wall palpation of chest normal Resp normal respiratory effort and clear to auscultation bilaterally Cardio regular rate, regular rhythm, S1 normal heart sound, S2 normal heart sound and no murmurs GI normal to inspection, nondistended, normoactive bowel sounds, soft to palpation, non-tender and non-distended Back/Spine no CVA tenderness and no thoracic nor lumbar tenderness Extremity normal to inspection Extremity Narrative: There is no asymmetry, swelling, discoloration, leg vein distention, palpable cords or tenderness along the distribution of the deep venous system. General Extremety ED: Negative for edema, pulses abnormal or tenderness General Extremity: Negative for edema or pulses abnormal Neuro oriented x3, CN's II-XII intact bilaterally and no sensory deficits noted Sensorium / Orientation: awake and alert Motor Exam: strength 5/5 throughout Psych Psych Narrative: Patient mood is depressed affect is flat. Mood & Affect: depressed Skin no rashes or lesions noted and no wounds General Skin Exam: Negative for jaundice or pallor Heart Score History: Slightly/Non-Suspicious ECG: Normal Age: >45 - <65 years Risk Factors: >/= 3 Risk Factors or History of CAD Score: 3 MDM MDM MDM Narrative Medical decision making narrative: With atypical chest pain. Patient presents with chest pain. Suspect this is noncardiac. EKG and troponin and 2-hour troponin were obtained. Since she has no other complaints no other labs were obtained. Lab Data Attestation: I reviewed the patient's lab results. Lab results narrative: Repeat troponin is 4 with a delta of 4. With both initial and 2-hour less than 7 negative predictive value for cardiac disease is 100%. Patient was discharged home Labs: Laboratory Results - last 24 hr 05/24/22 19:18 Troponin I High Sens 4 EKG Initial EKG: Attestation: I personally reviewed and interpreted this EKG as follows: Interpretation: Sinus Rhythm (Rate is 76. EKG is normal. OK interval is 152 ms. Cures duration 96 ms. QT durations are 94 ms. [place] is normal.) Discharge Plan Triage Chief Complaint: Chest Pain ED Provider: Omar Mcdonald Dx/Rx/DC Orders Clinical Impression: Chest pain, Atherosclerotic heart disease of [place] coronary artery without angina pectoris, History of coronary artery stent placement, Smoking [place] n 30 pack years Instructions: ED Chest Pain, Noncardiac Prescriptions: No Action aspirin [Adult Low Dose Aspirin] 81 mg tablet,delayed release (DR/EC) 81 mg PO QODAY Rx Instructions: 81 mg PO; 3x week fluoxetine 10 mg capsule 10 mg PO DAILY lamotrigine 150 mg tablet 75 mg PO DAILY Label Comments: Take 0.5 tablets by mouth once daily. cholecalciferol (vitamin D3) 1,250 mcg (50,000 unit) capsule 1,250 mcg PO QWEEK potassium chloride 10 mEq capsule, extended release 10 meq PO .QOD albuterol sulfate [Ventolin HFA] 90 mcg/actuation HFA aerosol inhaler 2 inh inhalation Q6H PRN lorazepam [Ativan] 0.5 mg Tablet 0.5 mg PO BID PRN (Reason: Anxiety) fluticasone propionate [Flonase Allergy Relief] 50 mcg/actuation spray,suspension 2 spray intranasal DAILY PRN (Reason: Allergy Symptoms) Rx Instructions: administer into each nostril ibuprofen 400 mg tablet 400 mg PO TID esomeprazole magnesium [Nexium 24HR] 20 mg capsule,delayed release(DR/EC) 20 mg PO DAILY famotidine 40 mg tablet 40 mg PO BID Qty: 90 3RF Breztri Aerosphere 160-9-4.8 mcg/actuation HFA aerosol inhaler 2 inh inhalation BID Qty: 10.7 11RF (DME) spacer See Rx Instructions .ROUTE .MEDSUPPLY Qty: 1 0RF Rx Instructions: As directed Primary Care Provider: Ellis Crandall Referrals: Ellis Crandall MD [Primary Care Provider] - As Needed Disposition Disposition: Home, Self Care
[2022-05-24 19:45] LABS: Troponin-I HS 4 pg/mL (3.0-54.0)
[2022-05-24 22:06] VITALS: BP 168/75; PULSE 66; RESP 16
== END 2022-05-24 22:09 | disposition home or self-care (01) ==
PROVIDERS: Emergency Provider Emergency Medicine; PCP Family Medicine; Visit Provider Emergency Medicine
DX: R07.9 Chest pain, unspecified (principal); J44.9 Chronic obstructive pulmonary disease, unspecified; E78.5 Hyperlipidemia, unspecified; I25.5 Ischemic cardiomyopathy; I10 Essential (primary) hypertension; I25.10 Atherosclerotic heart disease of native coronary artery without angina pectoris; F32.A Depression, unspecified; F17.200 Nicotine dependence, unspecified, uncomplicated; Z95.5 Presence of coronary angioplasty implant and graft
CPT/HCPCS: 84484; 93005; 99284; A4216

== ENCOUNTER → 2022-06-01 | Outpatient (CLI) | payer MEDICAID, SELFPAY ==
--- NOTE | 2022-06-01 10:17 | RAD_ITS ---
STUDY: X-RAY CHEST REASON FOR EXAM: Female, 56 years old. Technologist Notes chest pain on and off with discomfort wearing bra, sob since stent placed Dyspnea TECHNIQUE: XR Chest 2 Views COMPARISON: 04.03.22 FINDINGS: There is no demonstrated pleural abnormality. Normal size heart. Normal mediastinum and kirsten. Normal visualized pulmonary arteries. There is atherosclerotic calcification of the aortic arch with tortuosity. There are diffuse degenerative changes of the visualized thoracic spine. There is degenerative osteoarthritis of the bilateral shoulders. There is no demonstrated abnormality of the visualized soft tissue structures of the upper abdomen. RAD/Chest PA and Lateral IMPRESSION: There are no acute findings. Electronically Signed: Asim Hudson MD at 16:53 EDT ,
[2022-06-01 11:48] LABS: Anion Gap 4 (5-15); BUN 9 mg/dL (7-18); BUN/Creat Ratio 12.8 RATIO (10-20); Calcium,Total 9.7 mg/dL (8.5-10.1); Chloride 107 mmol/L (98-107); EST Glomerular Filtration Rate 92 mL/min (>60); Est Glom Filt Rate - Afr Amer 111 mL/min (>60); Glucose 57 mg/dL (74-106); Potassium 3.3 mmol/L (3.5-5.1); Sodium Level 139 mmol/L (136-145)
[2022-06-01 16:50] LABS: BNP,B-Type NATRIURETIC PEPTIDE 29.4 pg/mL (0-100)
== END | disposition home or self-care (01) ==
LOC: RAD 10:14
PROVIDERS: PCP Family Medicine; Referring Provider Nurse Practitioner Gerontology; Visit Provider Nurse Practitioner Gerontology
DX: M19.012 Primary osteoarthritis, left shoulder (principal); I70.0 Atherosclerosis of aorta; M19.011 Primary osteoarthritis, right shoulder; R06.02 Shortness of breath
CPT/HCPCS: 36415; 71046; 80048; 83880

== ENCOUNTER 2022-06-28 17:26 | Emergency (ER) | payer MEDICAID, SELFPAY ==
[2022-06-28 17:26] VITALS: BP 155/102; PULSE 87; RESP 20; TEMP 36.3; O2SAT 97; BMI 25.4
--- NOTE | 2022-06-28 17:57 | EKG12_ITS ---
Test Reason : DYSRHYTHMIA Blood Pressure : / mmHG Vent. Rate : 063 BPM Atrial Rate : 063 BPM P-R Int : 174 ms QRS Dur : 092 ms QT Int : 432 ms P-R-T Axes : 071 059 058 degrees QTc Int : 442 ms Normal sinus rhythm Normal ECG Confirmed by JORJE KING, LEONIDES ([id number]), news copy editor FILI CASTILLO ([id number]) on 06/29/2022 9:17:19 AM Referred By: Confirmed By:LEONIDES RECINOS MD
--- NOTE | 2022-06-28 18:11 | EDS_ITS ---
HPI <ILIA Chau - Last Filed: 06/28/22 19:02> History of Present Illness Chief Complaint: Shortness of Breath Narrative Narrative: 56-year-old female with history of CAD, hyperlipidemia, bipolar, anxiety presents to the [facility] 3 to 4 days of generalized intermittent chest pain, back pain, shortness of breath. Patient does smoke tobacco, she has history of COPD, states she has been taking her inhalers as prescribed. She states that the pain in her chest is intermittent, she feels sometimes she has palpitations, she denies any fevers, chills, infectious symptoms, she does have a cough however is chronic. [facility] <ILIA Chau - Last Filed: 06/28/22 19:02> [facility] Medical History (Updated 06/28/22 @ 19:01 by ILIA Chau) Abdominal pain Adverse drug reaction Anxiety disorder Asthma-COPD overlap syndrome Atherosclerotic heart disease of [place] coronary artery without angina pectoris Back pain Barretts esophagus Bipolar affective disorder Borderline personality disorder Chest pain of uncertain etiology Chest pain, non-cardiac Chronic constipation Chronic left-sided thoracic back pain COPD (chronic obstructive pulmonary disease) Depression Difficulty swallowing Eloped from emergency department Essential (primary) hypertension Former smoker Gastric reflux GERD (gastroesophageal reflux disease) Headache History of echocardiogram History of Holter monitoring History of non-ST elevation myocardial infarction (NSTEMI) (08/10/21) History of ST elevation myocardial infarction (STEMI) (12/18/20) Intermittent palpitations Irritable bowel syndrome with diarrhea Ischemic cardiomyopathy Leg cramps Myocardial infarct Nicotine dependence 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) Post-menopausal Shortness of breath Shortness of breath on exertion Syncope Takotsubo cardiomyopathy (08/10/21) Ulcerative colitis Wears glasses Home Medications lorazepam 0.5 mg tablet (Ativan) 0.5 mg PO BID PRN Anxiety 06/19/21 [History Last Taken 1 Week Ago ~08/03/21] aspirin 81 mg tablet,delayed release (Adult Low Dose Aspirin) 81 mg PO QODAY HEALTH MAINTENANCE 07/13/21 [History Last Taken 08/07/21] fluticasone propionate 50 mcg/actuation nasal spray,suspension (Flonase Allergy Relief) 2 spray intranasal DAILY PRN Allergy Symptoms 10/29/21 [History Last Taken Unknown] fluoxetine 10 mg capsule 10 mg PO DAILY 12/14/21 [History Last Taken Unknown] famotidine 40 mg tablet 40 mg PO BID #90 tabs 04/17/22 [Rx Last Taken Unknown] albuterol sulfate 90 mcg/actuation aerosol inhaler (Ventolin HFA) 2 inh inhalation Q6H PRN 05/11/22 [History Last Taken Unknown] cholecalciferol (vitamin D3) 1,250 mcg (50,000 unit) capsule 1,250 mcg PO QWEEK 05/11/22 [History Last Taken Unknown] lamotrigine 150 mg tablet 75 mg PO DAILY 05/11/22 [History Last Taken Unknown] budesonide 160 mcg-glycopyr 9 mcg-formot 4.8 mcg/actuation HFA inhaler (Breztri Aerosphere) 2 inh inhalation BID #10.7 grams 05/23/22 [Rx Last Taken Unknown] spacer #1 ea 05/23/22 [Rx Last Taken Unknown] doxazosin 1 mg tablet (Cardura) 1 mg PO DAILY #30 tabs 06/01/22 [Rx Last Taken Unknown] esomeprazole magnesium 20 mg capsule,delayed release (Nexium 24HR) 20 mg PO DAILY PRN 06/01/22 [History Last Taken Unknown] ibuprofen 400 mg tablet 400 mg PO ONCE PRN 06/01/22 [History Last Taken Unknown] potassium chloride 20 mEq tablet,extended release 20 meq PO .QOD #30 tabs 06/01/22 [Rx Last Taken Unknown] prednisone 50 mg tablet 50 mg PO DAILY #4 tabs 06/28/22 [Rx Last Taken Unknown] Allergy/AdvReac Type Severity Reaction Status Date / Time morphine Allergy Hives Verified 06/28/22 17:28 amlodipine AdvReac Intermediate chest Verified 06/28/22 17:28 pain and cannot breathe carvedilol [From Coreg] AdvReac Intermediate throat Verified 06/28/22 17:28 closing up and chest pressure citalopram [From Celexa] AdvReac NAUSEATED Verified 06/28/22 17:28 AND IRRITABLE lisinopril AdvReac SOB, chest Verified 06/28/22 17:28 tightness,throat closing venlafaxine [From Effexor] AdvReac DIDN'T Verified 06/28/22 17:28 WORK Family History Father CAD (coronary artery disease) Myocardial infarction Surgical History (Updated 05/24/22 @ 21:[address] Omar Mcdonald MD) H/O section History of cardiac catheterization (08/11/21) History of coronary artery stent placement (12/18/20) History of esophagogastroduodenoscopy (EGD) History of left heart catheterization (05/17/21) Social History household members: none Smoking Status: Current some day smoker tobacco type: cigarettes how long ago did patient quit smokin days ago alcohol intake: never substance use type: does not use caffeine: Yes Type: coffee Number of servings: 2 ROS <ILIA Chau - Last Filed: 06/28/22 19:02> ROS ED ROS Narrative Constitutional: Negative for fever, chills, weight loss, weakness Eyes: Negative for vision loss, vision change, double vision ENT: Negative for any sore throat, ear pain, congestion Cardiovascular: Positive for any chest pain, tightness, palpitations Respiratory: Negative for any sputum production, hemoptysis, dyspnea, dyspnea on exertion, orthopnea. Positive for cough Gastrointestinal: Negative for any abdominal pain, nausea, vomiting, diarrhea, constipation, blood in stool, blood in vomit : Negative for any urinary frequency, dysuria, retention, blood in urine Muscle skeletal: Negative for any muscle joint pain, stiffness, myalgias, arthralgias, neck pain, back pain Neurological: Negative for any syncope, numbness or tingling, dizziness. Positive for headache Skin: Negative for any rashes, lumps, itching, abrasions, lacerations Psychiatric: Negative for any depression, anxiety, stress, suicidal ideation, homicidal ideation Hematologic: Negative for any easy bruising, excessive bruising, easy bleeding Allergies: Negative for any eczema, hives, rash EXAM <ILIA Chau - Last Filed: 06/28/22 19:02> Physical Exam Narrative Exam Narrative: Vital signs reviewed. HEET: Head normocephalic atraumatic, TMs clear bilaterally. Posterior pharynx is clear, moist mucous membranes. Nares clear bilaterally. Neck: Supple with no lymphadenopathy or tenderness. No signs of meningismus, negative jolt sign. Cardiac: Regular rate and rhythm no murmurs gallops or rubs, equal peripheral pulses bilaterally. Respiratory: Diminished lung sounds in the bases, remainder is clear. No chest tenderness. Abdomen: Soft, nontender, nondistended. No abdominal bruit or pulsatile masses. No hepatosplenomegaly Extremities: No peripheral edema, no signs of gross trauma or deformity. Active full range of motion of all extremities. Neuro: Cranial nerves II through XII intact, no focal neurological deficits. Skin: Clean dry and intact with no rash, purpura, petechiae, vesicles or pustules. Backs/flank: No CVA tenderness, no midline spinal tenderness, no deformity. Psych: Normal mood and affect. No SI, HI or acute psychosis. Const Vital Signs: 06/28/22 17:26 06/28/22 18:17 06/28/22 18:34 Temperature 97.4 F L Temperature Source Temporal Pulse Rate 87 92 Respiratory Rate 20 H 20 H Respiratory Effort Respiratory Depth Respiratory Pattern Normal Blood Pressure 155/102 H Blood Pressure Mean 119 Pulse Ox 97 99 Oxygen Delivery Method Room Air Room Air 06/28/22 18:34 06/28/22 18:56 Temperature Temperature Source Pulse Rate Respiratory Rate 16 Respiratory Effort Normal Short of Breath Short of Breath Respiratory Depth Normal Normal Respiratory Pattern Normal Normal Blood Pressure Blood Pressure Mean Pulse Ox 100 Oxygen Delivery Method Room Air Positive well nourished and well developed General Appearance ED: well developed <Dr. Alhaji Ceja DO - Last Filed: 06/28/22 19:19> Physical Exam Const Vital Signs: 06/28/22 17:26 06/28/22 18:17 06/28/22 18:34 Temperature 97.4 F L Temperature Source Temporal Pulse Rate 87 92 Respiratory Rate 20 H 20 H Respiratory Effort Respiratory Depth Respiratory Pattern Normal Blood Pressure 155/102 H Blood Pressure Mean 119 Pulse Ox 97 99 Oxygen Delivery Method Room Air Room Air 06/28/22 18:34 06/28/22 18:56 Temperature Temperature Source Pulse Rate Respiratory Rate 16 Respiratory Effort Normal Short of Breath Short of Breath Respiratory Depth Normal Normal Respiratory Pattern Normal Normal Blood Pressure Blood Pressure Mean Pulse Ox 100 Oxygen Delivery Method Room Air MDM <ILIA Chau - Last Filed: 06/28/22 19:02> [facility] Lab Data Attestation: I reviewed the patient's lab results. Labs: Laboratory Results - last 24 hr 06/28/22 06/28/22 06/28/22 18:06 18:06 18:06 WBC 5.6 RBC 4.65 Hgb 13.2 Hct 39.8 MCV 85.6 MCH 28.4 MCHC 33.2 RDW Std Deviation 42.6 RDW Coeff of Dona 13.6 Plt Count 269 MPV 10.7 Immature Gran % (Auto) 0.200 Neut % (Auto) 53.1 Lymph % (Auto) 36.1 [place] % (Auto) 7.0 Eos % (Auto) 2.7 Baso % (Auto) 0.9 Absolute Neuts (auto) 3.0 Absolute Lymphs (auto) 2.02 Nucleated RBC % 0 Sodium 135 L Potassium 3.9 Chloride 104 Carbon Dioxide 22.0 Anion Gap 9 BUN 15 Creatinine 0.78 Estim Creat Clear Calc 61.49 Est GFR (MDRD) Af Amer 98 Est GFR (MDRD) Non-Af 81 BUN/Creatinine Ratio 19.1 Glucose 102 Calcium 9.6 Troponin I High Sens 5 B-Natriuretic Peptide 24.6 Radiography Diagnostic Testing: Clinical Impression(s) from Imaging Studies Chest X-Ray 06/28/22 18:23 IMPRESSION: There are no acute findings. Electronically Signed: Asim Hudson MD at 18:32 EDT Reading Location ID and State: [facility] / [place] , Service support , EKG Normal sinus rhythm: Attestation: I personally reviewed and interpreted this EKG as follows: Interpretation: Sinus Rhythm Comments: Sinus rhythm, 83 bpm, WV interval 174 ms, QRS duration 92 ms, no acute ST elevation, no acute infarct noted. Treatment and Re-Evaluation Narrative: Patient appears well, patient appears nontoxic, vital signs are stable. Patient presents to the emergency department with chest pain, chest tightness, shortness of breath, headache. Patient did receive a full cardiac work-up, patient's EKG was unremarkable. Patient's laboratory values show a normal CBC, patient's chemistries were grossly unremarkable, patient's high sensory troponin was 5. I do not believe the patient needs another high center troponin secondary to this pain going on for multiple days. Patient did receive 2 DuoNeb's as well as IV steroids. This did decrease the patient's respiratory symptoms. Patient was given IV Toradol, aspirin for headache. Patient's chest x-ray interpreted by ER physician shows no acute findings. At this time, patient continues to improve, patient's vital signs are stable. Patient be diagnosed with COPD exacerbation. There is no evidence to suspect any CO, ACS, NSTEMI. There is no pneumonia or infectious process. Patient replaced on 5 days of prednisone and instructed to follow-up outpatient. Patient stable for discharge <Dr. Alhaji Ceja DO - Last Filed: 06/28/22 19:19> [facility] Narrative Medical decision making narrative: I performed a history and physical examination of the patient and discussed management plan with the physician dental laboratory assistant. I reviewed the physician dental laboratory assistant's note and agree with the documented findings and plan of care. Patient complains of dyspnea noting that its hard for her to get the air out. She notes chest tightness which is chronic. My interpretation of the chest x- ray is no acute findings. Basic blood work negative. She received breathing treatments and Solu-Medrol. She will be discharged home with prednisone and albuterol. Alhaji Ceja DO, MS Lab Data Attestation: I reviewed the patient's lab results. Labs: Laboratory Results - last 24 hr 06/28/22 06/28/22 06/28/22 18:06 18:06 18:06 WBC 5.6 RBC 4.65 Hgb 13.2 Hct 39.8 MCV 85.6 MCH 28.4 MCHC 33.2 RDW Std Deviation 42.6 RDW Coeff of Dona 13.6 Plt Count 269 MPV 10.7 Immature Gran % (Auto) 0.200 Neut % (Auto) 53.1 Lymph % (Auto) 36.1 [place] % (Auto) 7.0 Eos % (Auto) 2.7 Baso % (Auto) 0.9 Absolute Neuts (auto) 3.0 Absolute Lymphs (auto) 2.02 Nucleated RBC % 0 Sodium 135 L Potassium 3.9 Chloride 104 Carbon Dioxide 22.0 Anion Gap 9 BUN 15 Creatinine 0.78 Estim Creat Clear Calc 61.49 Est GFR (MDRD) Af Amer 98 Est GFR (MDRD) Non-Af 81 BUN/Creatinine Ratio 19.1 Glucose 102 Calcium 9.6 Troponin I High Sens 5 B-Natriuretic Peptide 24.6 Radiography Diagnostic Testing: Clinical Impression(s) from Imaging Studies Chest X-Ray 06/28/22 18:23 IMPRESSION: There are no acute findings. Electronically Signed: Asim Hudson MD at 18:32 EDT Reading Location ID and State: [facility] / [place] , Service support , Discharge Plan Triage Chief Complaint: Shortness of Breath ED Midlevel Provider: Ismael Poon ED Provider: Alhaji Ceja Dx/Rx/DC Orders Clinical Impression: Chest pain, Smoking greater than 30 pack years, Acute exacerbation of chronic obstructive pulmonary disease, Headache Instructions: Asthma and COPD, Understanding Headache Pain, ED Chest Pain, Noncardiac Prescriptions: New prednisone 50 mg tablet 50 mg PO DAILY Qty: 4 0RF No Action aspirin [Adult Low Dose Aspirin] 81 mg tablet,delayed release (DR/EC) 81 mg PO QODAY Rx Instructions: 81 mg PO; 3x week fluoxetine 10 mg capsule 10 mg PO DAILY doxazosin [Cardura] 1 mg tablet 1 mg PO DAILY Qty: 30 3RF lamotrigine 150 mg tablet 75 mg PO DAILY Label Comments: Take 0.5 tablets by mouth once daily. cholecalciferol (vitamin D3) 1,250 mcg (50,000 unit) capsule 1,250 mcg PO QWEEK albuterol sulfate [Ventolin HFA] 90 mcg/actuation HFA aerosol inhaler 2 inh inhalation Q6H PRN lorazepam [Ativan] 0.5 mg Tablet 0.5 mg PO BID PRN (Reason: Anxiety) fluticasone propionate [Flonase Allergy Relief] 50 mcg/actuation spray,suspension 2 spray intranasal DAILY PRN (Reason: Allergy Symptoms) Rx Instructions: administer into each nostril famotidine 40 mg tablet 40 mg PO BID Qty: 90 3RF Breztri Aerosphere 160-9-4.8 mcg/actuation HFA aerosol inhaler 2 inh inhalation BID Qty: 10.7 11RF (DME) spacer See Rx Instructions .ROUTE .MEDSUPPLY Qty: 1 0RF Rx Instructions: As directed ibuprofen 400 mg tablet 400 mg PO ONCE PRN esomeprazole magnesium [Nexium 24HR] 20 mg capsule,delayed release(DR/EC) 20 mg PO DAILY PRN potassium chloride 20 mEq tablet extended release 20 meq PO .QOD Qty: 30 6RF Primary Care Provider: Ellis Crandall Referrals: Ellis Crandall MD [Primary Care Provider] - Activity Restrictions/Additional Instructions: Please continue to stop smoking. Please follow-up with your PCP. Use prednisone until finished. Continue your inhalers. Disposition Disposition: Home, Self Care
[2022-06-28] MEDS: Ondansetron 4 MG/2 ML Vial IV (18:13)
[2022-06-28] MEDS: Ketorolac 15 MG/ML Vial IV (18:13)
[2022-06-28] MEDS: Aspirin 81 MG TAB.CHEW 324 MG PO (18:14)
[2022-06-28 18:17] VITALS: O2SAT 99
[2022-06-28 18:17] LABS: Absolute Lymphocyte Count 2.02 X10^3/uL (0.83-4.51); Basophil# 0.05 X10^3/uL; Basophil% 0.9 % (0-1); Eosinophil# 0.15 X10^3/uL; Eosinophils% 2.7 % (0-5); Hematocrit 39.8 % (37-47); Hemoglobin 13.2 g/dL (12.0-15.0); Lymphocyte # 2.02 X10^3/ul (0.83-4.51); Lymphocyte % 36.1 % (19-41); Mean Corp Hgb Conc 33.2 g/dL (32-36); Mean Corpuscular Hgb 28.4 pg (27.0-32.0); Mean Corpuscular Volume 85.6 fL (81-99); Mean Platelet Vol. 10.7 fl (6.2-12.0); Monocyte# 0.39 X10^3/uL; NRBC Flagged by Analyzer 0 % (0-5); Neutrophil # 2.97 X10^3/uL (2.7-7.7); Neutrophil % 53.1 % (47-70); Platelet Count 269 K/mm3 (150-450); RBC Distribution Width CV 13.6 % (11.6-14.6); RBC Distribution Width SD 42.6 fl (35.1-43.9); Red Blood Count 4.65 M/mm3 (4.2-5.4); White Blood Count 5.6 K/mm3 (4.4-11.0)
[2022-06-28] MEDS: 0.9% Normal Saline 1,000 ML 1000 ML IV (18:19)
--- NOTE | 2022-06-28 18:23 | RAD_ITS ---
STUDY: XR Chest 1 View 06/28/2022 6:19 PM REASON FOR EXAM: Female, 56 years old. CHEST PAIN chest pain COMPARISON: None TECHNIQUE: XR Chest 1 View FINDINGS: There is no demonstrated pleural abnormality. Normal heart size. Normal mediastinum. Normal kirsten. Prominent appearing increased interstitial lung markings. Normal visualized pulmonary arteries. There is atherosclerotic calcification of the aortic arch with tortuosity. There are diffuse degenerative changes of the visualized thoracic spine. There is degenerative osteoarthritis of the bilateral shoulders. There is no demonstrated abnormality of the visualized soft tissue structures of the upper abdomen. RAD/Chest 1 View (Portable) IMPRESSION: There are no acute findings. Electronically Signed: Asim Hudson MD at 18:32 EDT ,
[2022-06-28 18:34] VITALS: PULSE 92; RESP 16; RESP 20; O2SAT 100
[2022-06-28] MEDS: Ipratropium/Albuterol Sulfate 3 ML AMPUL.NEB INHALATION ×2 (18:34→18:44)
[2022-06-28 18:36] LABS: Anion Gap 9 (5-15); BUN 15 mg/dL (7-18); BUN/Creat Ratio 19.1 RATIO (10-20); Calcium,Total 9.6 mg/dL (8.5-10.1); Chloride 104 mmol/L (98-107); Creatinine, Serum 0.78 mg/dL (0.55-1.02); EST Glomerular Filtration Rate 81 mL/min (>60); Est Glom Filt Rate - Afr Amer 98 mL/min (>60); Estimated Creatinine Clearance 61.49 ml/min; Glucose 102 mg/dL (74-106); Potassium 3.9 mmol/L (3.5-5.1); Sodium Level 135 mmol/L (136-145); Troponin-I HS (w/2H Reflex) 5 pg/mL (3.0-54.0)
[2022-06-28 18:40] LABS: BNP,B-Type NATRIURETIC PEPTIDE 24.6 pg/mL (0-100)
--- NOTE | 2022-06-28 19:00 | CPS ---
Additional x1 Duoneb given to pt. in ER as well
[2022-06-28] MEDS: MethylPREDNISolone 125 MG/2 ML Vial IV (19:19)
[2022-06-28 19:23] VITALS: BP 148/55; PULSE 89; RESP 18; O2SAT 96
[2022-06-28 20:08] LABS: Reflex Troponin-HS? (from REC) Y
== END 2022-06-28 19:23 | disposition home or self-care (01) ==
PROVIDERS: Nurse Practitioner; Emergency Provider Emergency Medicine; PCP Family Medicine; Visit Provider Emergency Medicine
DX: J44.1 Chronic obstructive pulmonary disease with (acute) exacerbation (principal); R07.9 Chest pain, unspecified; F17.200 Nicotine dependence, unspecified, uncomplicated; E78.5 Hyperlipidemia, unspecified; I25.10 Atherosclerotic heart disease of native coronary artery without angina pectoris; R51.9 Headache, unspecified; M54.9 Dorsalgia, unspecified; I10 Essential (primary) hypertension; F41.9 Anxiety disorder, unspecified; I25.5 Ischemic cardiomyopathy; R06.02 Shortness of breath; R05.3 Chronic cough
CPT/HCPCS: G0463; 71045; 80048; 83880; 84484; 85025; 93005; 94640; 96361; 96374; 96375; 99251; 99285; J7030; A4216; J2405

== ENCOUNTER 2022-07-01 16:43 | Emergency (ER) | payer MEDICAID, SELFPAY ==
[2022-07-01 16:43] VITALS: BP 161/101; PULSE 90; RESP 18; TEMP 37.2; O2SAT 96; BMI 26.0
--- NOTE | 2022-07-01 17:09 | CT_ITS ---
EXAM: CT ANGIOGRAPHY CHEST WITHOUT AND WITH INTRAVENOUS CONTRAST CLINICAL INDICATION: chest pain TECHNIQUE: Helically acquired angiography images were obtained of the chest without and with intravenous contrast. This CT exam was performed using one or more of the following dose reduction techniques: automated exposure control, adjustment of the mA and/or kV according to patient size, and/or use of iterative reconstruction technique. This report was created using [employer] report generation technology. MIP reconstructed images were created and reviewed. CONTRAST: IV 100mL [id number] RADIATION DOSE: CTDIvol = 6.10 mGy, DLP = 161.63 mGy-cm COMPARISON: 9.16.21. FINDINGS: PULMONARY ARTERIES: No demonstrated pulmonary embolism or arterial dissection. AORTA: There is atherosclerotic calcification of the aortic arch with tortuosity and elongation of the aortic arch and descending thoracic aorta. Normal in caliber. No evidence of dissection. GREAT VESSELS OF AORTIC ARCH: Unremarkable. Normal in caliber. No evidence of dissection. LUNGS AND PLEURAL SPACES: There are scattered blebs and bullae. This can be seen in pulmonary emphysema. No mass. No pleural effusion or thickening. No pneumothorax. HEART: There are calcifications of the coronary arteries. No pericardial effusion. No signs of right heart strain, ratio of right ventricle to left ventricle measures less than 1. MEDIASTINUM: Unremarkable. No mediastinal or hilar adenopathy. Esophagus is unremarkable. No hiatal hernia. THYROID: Unremarkable. No thyroid lesions. BONES/JOINTS: There are degenerative changes of the shoulders. There are multi-level degenerative changes of the thoracic spine. No suspicious lytic or blastic abnormality. LIVER: Stable hypodensities of the liver. CT/CTA Chest W/WO Contrast IMPRESSION: 1. Stable hypodensities of the liver. 2. No demonstrated pulmonary embolism or arterial dissection. Electronically Signed: Asim Hudson MD at 18:53 EDT ,
--- NOTE | 2022-07-01 17:10 | EDS_ITS ---
HPI History of Present Illness Chief Complaint: Other, Pain/Inj Detail of Chief Complaint: Left-sided chest pain x5 days Informant: patient Narrative Narrative: Patient presents the emergency department left-sided chest discomfort its been going on for about 5 days. Patient initially just did not feel well and describes some pain between her shoulder blades. Patient was seen in the emergency department 3 days ago and had lab work as well as chest x-ray and no etiology was found for pain. Patient states the pain is worse with breathing and now more localized to the left chest. She denies any trauma. She does have history of COPD. She is a smoker. No history of PE or DVT. Prior similar symptoms: No PFSH [facility] Medical History (Updated 07/01/22 @ 19:[address] 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 Back pain Barretts esophagus Bipolar affective disorder Borderline personality disorder Chest pain of uncertain etiology Chest pain, non-cardiac Chronic constipation Chronic left-sided thoracic back pain COPD (chronic obstructive pulmonary disease) Depression Difficulty swallowing Eloped from emergency department Essential (primary) hypertension Former smoker Gastric reflux GERD (gastroesophageal reflux disease) Headache History of echocardiogram History of Holter monitoring History of non-ST elevation myocardial infarction (NSTEMI) (08/10/21) History of ST elevation myocardial infarction (STEMI) (12/18/20) Intermittent palpitations Irritable bowel syndrome with diarrhea Ischemic cardiomyopathy Leg cramps Myocardial infarct Nicotine dependence 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) Post-menopausal Shortness of breath Shortness of breath on exertion Syncope Takotsubo cardiomyopathy (08/10/21) Ulcerative colitis Wears glasses Home Medications lorazepam 0.5 mg tablet (Ativan) 0.5 mg PO BID PRN Anxiety 06/19/21 [History Last Taken 1 Week Ago ~08/03/21] aspirin 81 mg tablet,delayed release (Adult Low Dose Aspirin) 81 mg PO QODAY HEALTH MAINTENANCE 07/13/21 [History Last Taken 08/07/21] fluticasone propionate 50 mcg/actuation nasal spray,suspension (Flonase Allergy Relief) 2 spray intranasal DAILY PRN Allergy Symptoms 10/29/21 [History Last Taken Unknown] fluoxetine 10 mg capsule 10 mg PO DAILY 12/14/21 [History Last Taken Unknown] famotidine 40 mg tablet 40 mg PO BID #90 tabs 04/17/22 [Rx Last Taken Unknown] albuterol sulfate 90 mcg/actuation aerosol inhaler (Ventolin HFA) 2 inh inhalation Q6H PRN 05/11/22 [History Last Taken Unknown] cholecalciferol (vitamin D3) 1,250 mcg (50,000 unit) capsule 1,250 mcg PO QWEEK 05/11/22 [History Last Taken Unknown] lamotrigine 150 mg tablet 75 mg PO DAILY 05/11/22 [History Last Taken Unknown] budesonide 160 mcg-glycopyr 9 mcg-formot 4.8 mcg/actuation HFA inhaler (Breztri Aerosphere) 2 inh inhalation BID #10.7 grams 05/23/22 [Rx Last Taken Unknown] spacer #1 ea 05/23/22 [Rx Last Taken Unknown] doxazosin 1 mg tablet (Cardura) 1 mg PO DAILY #30 tabs 06/01/22 [Rx Last Taken Unknown] esomeprazole magnesium 20 mg capsule,delayed release (Nexium 24HR) 20 mg PO DAILY PRN 06/01/22 [History Last Taken Unknown] ibuprofen 400 mg tablet 400 mg PO ONCE PRN 06/01/22 [History Last Taken Unknown] potassium chloride 20 mEq tablet,extended release 20 meq PO .QOD #30 tabs 06/01/22 [Rx Last Taken Unknown] prednisone 50 mg tablet 50 mg PO DAILY #4 tabs 06/28/22 [Rx Last Taken Unknown] hydrocodone-acetaminophen 5-325mg 5mg-325mg 1 tab PO Q4H PRN PRN Pain 2 days #10 TABLETS 07/01/22 [Rx Last Taken Unknown] naproxen 500 mg tablet 500 mg PO BID #14 tabs 07/01/22 [Rx Last Taken Unknown] Allergy/AdvReac Type Severity Reaction Status Date / Time morphine Allergy Hives Verified 07/01/22 16:43 amlodipine AdvReac Intermediate chest Verified 07/01/22 16:43 pain and cannot breathe carvedilol [From Coreg] AdvReac Intermediate throat Verified 07/01/22 16:43 closing up and chest pressure citalopram [From Celexa] AdvReac NAUSEATED Verified 07/01/22 16:43 AND IRRITABLE lisinopril AdvReac SOB, chest Verified 07/01/22 16:43 tightness,throat closing venlafaxine [From Effexor] AdvReac DIDN'T Verified 07/01/22 16:43 WORK Family History Father CAD (coronary artery disease) Myocardial infarction Surgical History H/O section History of cardiac catheterization (08/11/21) History of coronary artery stent placement (12/18/20) History of esophagogastroduodenoscopy (EGD) History of left heart catheterization (05/17/21) Social History household members: none Smoking Status: Current some day smoker tobacco type: cigarettes how long ago did patient quit smokin days ago alcohol intake: never substance use type: does not use caffeine: Yes Type: coffee Number of servings: 2 ROS ROS ED Review of Systems ROS Unobtainable: other Constitutional Constitutional ED: Reports lethargy; Denies chills, fever(s), sweats or weight loss Eyes Eyes: Denies blurry vision, change in vision or diplopia ENT ENT ED: Denies rhinorrhea or sore throat Cardiovascular Cardiovascular: Reports chest pain; Denies orthopnea or racing heartbeat Respiratory/Chest Respiratory/Chest: Reports dyspnea and dyspnea on exertion; Denies cough, orthopnea or sputum Gastrointestinal Gastrointestinal: Denies abdominal pain, diarrhea, nausea or vomiting Genitourinary Genitourinary ED: Denies dysuria, hematuria or urinary frequency Musculoskeletal Musculoskeletal: Denies arthralgias, back pain, myalgias or neck pain Integumentary Denies abscess, Abrasions or rash Neurologic Neurologic: Denies headache(s) or weakness Psychiatric Psychiatric: Denies anxiety, depression or suicidal thoughts Endocrine Endocrinology: Denies polydipsia, polyphagia or polyuria Hematologic/Lymphatic Hematologic/Lymphatic: Denies easy bleeding, easy bruising or lymphadenopathy Allergic/Immunologic Allergic/Immunologic ED: Denies mouth swelling, tongue swelling or urticaria EXAM Physical Exam Const Vital Signs: 07/01/22 16:43 07/01/22 17:42 07/01/22 19:00 Temperature 98.9 F Temperature Source Temporal Pulse Rate 90 75 68 Respiratory Rate 18 20 H 16 Blood Pressure 161/101 H 151/81 H 161/88 H Blood Pressure Mean 121 104 112 Pulse Ox 96 98 98 Oxygen Delivery Method Room Air Room Air Room Air Positive well nourished and well developed General Appearance ED: well developed and NAD HEENT Reports TM's clear and moist mucous membranes normocephalic and atraumatic; Negative for trauma or tenderness Tympanic Membrane ED: Yes TM's clear Eyes PERRL and EOMs intact bilaterally General Eye ED: Negative for pale conjunctiva or scleral icterus Neck no lymphadenopathy, supple and no JVD General: Negative for tenderness Chest Wall inspection of chest normal and palpation of chest normal Chest: Negative for tenderness Resp normal respiratory effort and clear to auscultation bilaterally Effort and Inspection: Negative for respiratory distress or pain with movement Auscultation: Negative for rhonchi, wheezes or diminished lung sounds Cardio regular rate, regular rhythm, S1 normal heart sound, S2 normal heart sound and no murmurs Peripheral Pulses: pulses 2+ throughout GI normal to inspection, nondistended, normoactive bowel sounds, soft to palpation, non-tender, non-distended and no masses Back/Spine no CVA tenderness and no thoracic nor lumbar tenderness Extremity normal to inspection General Extremety ED: Negative for edema General Extremity: Negative for edema Neuro oriented x3, CN's II-XII intact bilaterally, no sensory deficits noted and gait normal Sensorium / Orientation: awake, alert, oriented to person, oriented to place and oriented to time Motor Exam: strength 5/5 throughout and strength abnormal Psych mental status grossly normal Skin no rashes or lesions noted and no wounds MDM MDM MDM Narrative Medical decision making narrative: IV line established on arrival. Patient was medicated with Dilaudid and Zofran. Lab work-up was normal. CTA of the chest was negative for PE or dissection or any acute disease process. At this point etiology of her pain is unclear. I will treat her with naproxen and a few [place] for pain and asked that she follow- up with her primary care physician in 3 to 5 days. Lab Data Attestation: I reviewed the patient's lab results. Labs: Laboratory Results - last 24 hr 07/01/22 07/01/22 17:20 17:20 WBC 7.0 RBC 4.91 Hgb 13.8 Hct 42.1 MCV 85.7 MCH 28.1 MCHC 32.8 RDW Std Deviation 43.7 RDW Coeff of Dona 14.0 Plt Count 326 MPV 10.5 Immature Gran % (Auto) 0.100 Neut % (Auto) 38.5 L Lymph % (Auto) 51.6 H Petroleum % (Auto) 6.6 Eos % (Auto) 2.3 Baso % (Auto) 0.9 Absolute Neuts (auto) 2.7 Absolute Lymphs (auto) 3.60 Nucleated RBC % 0 Sodium 137 Potassium 3.9 Chloride 107 Carbon Dioxide 23.0 Anion Gap 7 BUN 9 Creatinine 0.71 Estim Creat Clear Calc 67.56 Est GFR (MDRD) Af Amer 110 Est GFR (MDRD) Non-Af 91 BUN/Creatinine Ratio 12.7 Glucose 91 Calcium 9.7 Troponin I High Sens 5 Radiography Diagnostic Testing: Clinical Impression(s) from Imaging Studies Chest CTA 07/01/22 17:09 IMPRESSION: 1. Stable hypodensities of the liver. 2. No demonstrated pulmonary embolism or arterial dissection. Electronically Signed: Asim Hudson MD at 18:53 EDT Reading Location ID and State: [facility] / [place] , Service support , Discharge Plan Triage Chief Complaint: Other, Pain/Inj ED Provider: Fely Hinds Dx/Rx/DC Orders Clinical Impression: Chest pain Instructions: ED Chest Pain, Uncertain Cause Prescriptions: New hydrocodone-acetaminophen [hydrocodone-acetaminophen] 5-325 mg tablet 1 tab PO Q4H PRN PRN (Reason: Pain) 2 Days Qty: 10 0RF naproxen 500 mg tablet 500 mg PO BID Qty: 14 0RF No Action aspirin [Adult Low Dose Aspirin] 81 mg tablet,delayed release (DR/EC) 81 mg PO QODAY Rx Instructions: 81 mg PO; 3x week fluoxetine 10 mg capsule 10 mg PO DAILY doxazosin [Cardura] 1 mg tablet 1 mg PO DAILY Qty: 30 3RF lamotrigine 150 mg tablet 75 mg PO DAILY Label Comments: Take 0.5 tablets by mouth once daily. cholecalciferol (vitamin D3) 1,250 mcg (50,000 unit) capsule 1,250 mcg PO QWEEK albuterol sulfate [Ventolin HFA] 90 mcg/actuation HFA aerosol inhaler 2 inh inhalation Q6H PRN lorazepam [Ativan] 0.5 mg Tablet 0.5 mg PO BID PRN (Reason: Anxiety) fluticasone propionate [Flonase Allergy Relief] 50 mcg/actuation spray,suspension 2 spray intranasal DAILY PRN (Reason: Allergy Symptoms) Rx Instructions: administer into each nostril prednisone 50 mg tablet 50 mg PO DAILY Qty: 4 0RF famotidine 40 mg tablet 40 mg PO BID Qty: 90 3RF Breztri Aerosphere 160-9-4.8 mcg/actuation HFA aerosol inhaler 2 inh inhalation BID Qty: 10.7 11RF (DME) spacer See Rx Instructions .ROUTE .MEDSUPPLY Qty: 1 0RF Rx Instructions: As directed ibuprofen 400 mg tablet 400 mg PO ONCE PRN esomeprazole magnesium [Nexium 24HR] 20 mg capsule,delayed release(DR/EC) 20 mg PO DAILY PRN potassium chloride 20 mEq tablet extended release 20 meq PO .QOD Qty: 30 6RF Primary Care Provider: Ellis Crandall Referrals: Ellis Crandall MD [Primary Care Provider] - 3-5 Days Disposition Disposition: Home, Self Care
[2022-07-01 17:28] LABS: Absolute Neutrophil Count 2.7 X10^3/uL (2.0-7.7); Basophil# 0.06 X10^3/uL; Basophil% 0.9 % (0-1); Eosinophil# 0.16 X10^3/uL; Eosinophils% 2.3 % (0-5); Hematocrit 42.1 % (37-47); Hemoglobin 13.8 g/dL (12.0-15.0); Lymphocyte % 51.6 % (19-41); Mean Corp Hgb Conc 32.8 g/dL (32-36); Mean Corpuscular Hgb 28.1 pg (27.0-32.0); Mean Corpuscular Volume 85.7 fL (81-99); Mean Platelet Vol. 10.5 fl (6.2-12.0); Monocyte# 0.46 X10^3/uL; Monocyte% 6.6 % (0-10); NRBC Flagged by Analyzer 0 % (0-5); Neutrophil # 2.68 X10^3/uL (2.7-7.7); Neutrophil % 38.5 % (47-70); Platelet Count 326 K/mm3 (150-450); RBC Distribution Width SD 43.7 fl (35.1-43.9); Red Blood Count 4.91 M/mm3 (4.2-5.4)
[2022-07-01] MEDS: Ondansetron 4 MG/2 ML Vial IV (17:33)
[2022-07-01] MEDS: HYDROmorphone 1 MG/ML Syringe 0.5 MG IV (17:33)
[2022-07-01 17:42] VITALS: BP 151/81; PULSE 75; RESP 20; O2SAT 98
[2022-07-01 17:49] LABS: Anion Gap 7 (5-15); BUN 9 mg/dL (7-18); BUN/Creat Ratio 12.7 RATIO (10-20); Calcium,Total 9.7 mg/dL (8.5-10.1); Chloride 107 mmol/L (98-107); Creatinine, Serum 0.71 mg/dL (0.55-1.02); EST Glomerular Filtration Rate 91 mL/min (>60); Est Glom Filt Rate - Afr Amer 110 mL/min (>60); Estimated Creatinine Clearance 67.56 ml/min; Glucose 91 mg/dL (74-106); Potassium 3.9 mmol/L (3.5-5.1); Sodium Level 137 mmol/L (136-145); Troponin-I HS (w/2H Reflex) 5 pg/mL (3.0-54.0)
[2022-07-01 19:00] VITALS: BP 161/88; PULSE 68; RESP 16; O2SAT 98
[2022-07-01 19:24] LABS: Reflex Troponin-HS? (from REC) Y
== END 2022-07-01 19:22 | disposition home or self-care (01) ==
PROVIDERS: Emergency Provider Emergency Medicine; PCP Family Medicine; Visit Provider Emergency Medicine
DX: R07.9 Chest pain, unspecified (principal); J44.9 Chronic obstructive pulmonary disease, unspecified; I25.10 Atherosclerotic heart disease of native coronary artery without angina pectoris; F17.200 Nicotine dependence, unspecified, uncomplicated; I10 Essential (primary) hypertension; I25.5 Ischemic cardiomyopathy; I25.2 Old myocardial infarction
CPT/HCPCS: 71275; 80048; 84484; 85025; 87811; 96374; 96375; 99283; Q9967; J2405

== ENCOUNTER 2022-07-18 20:46 | Emergency (ER) | payer MEDICAID, SELFPAY ==
[2022-07-18 20:48] VITALS: BP 128/84; PULSE 89; RESP 14; TEMP 36.2; O2SAT 98; BMI 25.2
--- NOTE | 2022-07-18 21:04 | EKG12_ITS ---
Test Reason : DYSRHYTHMIA Blood Pressure : / mmHG Vent. Rate : 069 BPM Atrial Rate : 069 BPM P-R Int : 176 ms QRS Dur : 090 ms QT Int : 394 ms P-R-T Axes : 066 065 069 degrees QTc Int : 422 ms Normal sinus rhythm Normal ECG Confirmed by GARLAND KING, ALEX ([id number]), tape editor FILI CASTILLO ([id number]) on 07/19/2022 1:29:45 PM Referred By: PL Confirmed By:BARRETT HAQUE MD
--- NOTE | 2022-07-18 21:04 | CT_ITS ---
INDICATION: abd pain EXAMINATION: CT Abdomen And Pelvis W/ Contrast Injection TECHNIQUE: Helically acquired images were obtained of the abdomen and pelvis after IV contrast. A radiation dose optimization technique was used for this scan. IV Contrast dosage and agent: IV 100mL [id number] Oral contrast: None. COMPARISON: 03/26/2021 FINDINGS: Visualized lung bases: Unremarkable Liver: Multiple hepatic cysts. Gallbladder: Unremarkable Spleen: Unremarkable Pancreas: Unremarkable Adrenal Glands: Unremarkable Kidneys: Unremarkable Vasculature: Moderate aortoiliac atherosclerotic disease. GI Tract: Unremarkable Lymphadenopathy: None Peritoneum: No ascites. Bladder: Unremarkable Reproductive organs: Unremarkable Bones/Soft tissues: No suspicious osseous or soft tissue lesions CT/Abdomen/Pelvis W IV Cont ONLY IMPRESSION: No acute abnormalities in the abdomen or pelvis. Electronically Signed: Nj Jensen MD at 22:52 EDT ,
--- NOTE | 2022-07-18 21:06 | EDS_ITS ---
HPI HPI - GI History of Present Illness Chief Complaint: Abd Pain Informant: patient Narrative Narrative: Patient presents with abdominal pain. It sounds like she has abdominal pain all the time. She states she has GERD, acid reflux, irritable bowel, and possibly ulcerative colitis although she states I do not know where that came from. She commonly has abdominal pain but it seems worse. She has a burning sensation in the epigastrium that is always there. But she also has burning lower down in both sides of the abdomen. She has been having back pain but that is not new or different. She has not had nausea and vomiting. She did have some diarrhea a few days ago. But she went on to clear liquids and now she is not really having bowel movements. She has not had fevers or chills. She states nothing really makes it better or worse. She used to be on mesalamine for ulcerative colitis but states it did not do anything for her pain or symptoms. She does see Dr. Magaña for gastroenterology. Patient states she has a history of heart disease and heart attack but she is not having any chest pain or dyspnea or anything that would make her think this is her heart. It is all in her abdomen. The epigastric burning is chronic. The new symptom is below the umbilicus. She denies urinary symptoms. Only abdominal surgery was . [facility] Medical History Abdominal pain Adverse drug reaction Anxiety disorder Asthma-COPD overlap syndrome Atherosclerotic heart disease of [place] coronary artery without angina pectoris Back pain Barretts esophagus Bipolar affective disorder Borderline personality disorder Chest pain of uncertain etiology Chest pain, non-cardiac Chronic constipation Chronic left-sided thoracic back pain COPD (chronic obstructive pulmonary disease) Depression Difficulty swallowing Eloped from emergency department Essential (primary) hypertension Former smoker Gastric reflux GERD (gastroesophageal reflux disease) Headache History of echocardiogram History of Holter monitoring History of non-ST elevation myocardial infarction (NSTEMI) (08/10/21) History of ST elevation myocardial infarction (STEMI) (12/18/20) Intermittent palpitations Irritable bowel syndrome with diarrhea Ischemic cardiomyopathy Leg cramps Myocardial infarct Nicotine dependence 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) Post-menopausal Shortness of breath Shortness of breath on exertion Syncope Takotsubo cardiomyopathy (08/10/21) Ulcerative colitis Wears glasses Home Medications lorazepam 0.5 mg tablet (Ativan) 0.5 mg PO BID PRN Anxiety 06/19/21 [History Last Taken 1 Week Ago ~08/03/21] aspirin 81 mg tablet,delayed release (Adult Low Dose Aspirin) 81 mg PO QODAY HEALTH MAINTENANCE 07/13/21 [History Last Taken 08/07/21] fluticasone propionate 50 mcg/actuation nasal spray,suspension (Flonase Allergy Relief) 2 spray intranasal DAILY PRN Allergy Symptoms 10/29/21 [History Last Taken Unknown] fluoxetine 10 mg capsule 10 mg PO DAILY 12/14/21 [History Last Taken Unknown] famotidine 40 mg tablet 40 mg PO BID #90 tabs 04/17/22 [Rx Last Taken Unknown] albuterol sulfate 90 mcg/actuation aerosol inhaler (Ventolin HFA) 2 inh inhalation Q6H PRN 05/11/22 [History Last Taken Unknown] cholecalciferol (vitamin D3) 1,250 mcg (50,000 unit) capsule 1,250 mcg PO QWEEK 05/11/22 [History Last Taken Unknown] lamotrigine 150 mg tablet 75 mg PO DAILY 05/11/22 [History Last Taken Unknown] budesonide 160 mcg-glycopyr 9 mcg-formot 4.8 mcg/actuation HFA inhaler (Breztri Aerosphere) 2 inh inhalation BID #10.7 grams 05/23/22 [Rx Last Taken Unknown] spacer #1 ea 05/23/22 [Rx Last Taken Unknown] doxazosin 1 mg tablet (Cardura) 1 mg PO DAILY #30 tabs 06/01/22 [Rx Last Taken Unknown] esomeprazole magnesium 20 mg capsule,delayed release (Nexium 24HR) 20 mg PO DAILY PRN 06/01/22 [History Last Taken Unknown] ibuprofen 400 mg tablet 400 mg PO ONCE PRN 06/01/22 [History Last Taken Unknown] potassium chloride 20 mEq tablet,extended release 20 meq PO .QOD #30 tabs 06/01/22 [Rx Last Taken Unknown] prednisone 50 mg tablet 50 mg PO DAILY #4 tabs 06/28/22 [Rx Last Taken Unknown] hydrocodone-acetaminophen 5-325mg 5mg-325mg 1 tab PO Q4H PRN PRN Pain 2 days #10 TABLETS 07/01/22 [Rx Last Taken Unknown] naproxen 500 mg tablet 500 mg PO BID #14 tabs 07/01/22 [Rx Last Taken Unknown] dicyclomine 20 mg tablet 20 mg PO TID #14 tabs 07/18/22 [Rx Last Taken Unknown] Allergy/AdvReac Type Severity Reaction Status Date / Time morphine Allergy Hives Verified 07/01/22 16:43 amlodipine AdvReac Intermediate chest Verified 07/01/22 16:43 pain and cannot breathe carvedilol [From Coreg] AdvReac Intermediate throat Verified 07/01/22 16:43 closing up and chest pressure citalopram [From Celexa] AdvReac NAUSEATED Verified 07/01/22 16:43 AND IRRITABLE lisinopril AdvReac SOB, chest Verified 07/01/22 16:43 tightness,throat closing venlafaxine [From Effexor] AdvReac DIDN'T Verified 07/01/22 16:43 WORK Family History Father CAD (coronary artery disease) Myocardial infarction Surgical History H/O section History of cardiac catheterization (08/11/21) History of coronary artery stent placement (12/18/20) History of esophagogastroduodenoscopy (EGD) History of left heart catheterization (05/17/21) Social History household members: none Smoking Status: Current some day smoker tobacco type: cigarettes how long ago did patient quit smokin days ago alcohol intake: never substance use type: does not use caffeine: Yes Type: coffee Number of servings: 2 ROS ROS ED Constitutional Constitutional ED: Denies chills, fever(s) or subjective ENT ENT ED: Denies rhinorrhea or sore throat Cardiovascular Cardiovascular: Denies chest pain, palpitations or racing heartbeat Respiratory/Chest Respiratory/Chest: Denies cough or dyspnea Gastrointestinal Gastrointestinal: Reports abdominal pain and diarrhea; Denies constipation, melena, nausea or vomiting Genitourinary Genitourinary ED: Denies dysuria, hematuria or urinary frequency Musculoskeletal Musculoskeletal: Reports back pain Integumentary Denies rash Neurologic Neurologic: Denies headache(s) or paresthesias Psychiatric Psychiatric: Reports anxiety Endocrine Endocrinology: Denies polydipsia or polyuria Hematologic/Lymphatic Hematologic/Lymphatic: Denies lymphadenopathy Allergic/Immunologic Allergic/Immunologic ED: Denies urticaria EXAM Physical Exam Const Vital Signs: 07/18/22 20:48 Temperature 97.2 F L Temperature Source Temporal Pulse Rate 89 Respiratory Rate 14 Blood Pressure 128/84 H Blood Pressure Mean 98 Pulse Ox 98 Oxygen Delivery Method Room Air Positive well nourished and well developed General Appearance ED: well developed and NAD; Negative for pallor HEENT Reports moist mucous membranes Eyes General Eye ED: Negative for scleral icterus Neck no JVD Resp normal respiratory effort and clear to auscultation bilaterally Cardio regular rate, regular rhythm and no murmurs GI non-distended and no masses GI Narrative: Abdomen is thin. Bowel sounds are normal. No distention. She has mild nonfocal tenderness that varies on exam. No masses are felt. No hernia. There is certainly no rebound or guarding. Palpation: soft Back/Spine Back/Spine Narrative: She complains of pain in the mid lumbar area. But there is no actual tenderness on exam. No lesions or cuadra. No vesicles. Extremity General Extremety ED: Negative for edema or tenderness General Extremity: Negative for edema Neuro Sensorium / Orientation: alert Psych Mood & Affect: anxious Skin General Skin Exam: Negative for jaundice or pallor MDM MDM MDM Narrative Medical decision making narrative: Patient refuses fentanyl because her son overdosed on fentanyl. She will not take morphine because of allergies. I will try some Toradol to see if that helps her. Patient has the plan to present him given. It caused her whole body to burn worse than it franco already. Patient CBC shows some mildly low white count. She has had this before. She is not having symptoms that would be typical of COVID now. Her electrolytes show minimal elevation of chloride. Creatinine is okay. Glucose is good. Liver function test are normal. Lipase is normal. CT scan shows hepatic cysts but no sign of any acute process. This patient has a long history of abdominal pain. I explained that I do not have a specific cause for this. It sounds like she has not been taking her esomeprazole. She has been taking Pepcid instead on occasion. I explained that she can get ptne-dyo-johspry Prilosec or Nexium. I will write for some Bentyl. She will follow-up with her [place]. Lab Data Attestation: I reviewed the patient's lab results. Labs: Laboratory Results - last 24 hr 07/18/22 07/18/22 21:24 21:24 WBC 4.3 L RBC 4.40 Hgb 12.4 Hct 38.0 MCV 86.4 MCH 28.2 MCHC 32.6 RDW Std Deviation 43.8 RDW Coeff of Dona 13.9 Plt Count 248 MPV 11.3 Immature Gran % (Auto) 0.200 Neut % (Auto) 33.2 L Lymph % (Auto) 55.1 H Brooke % (Auto) 7.8 Eos % (Auto) 2.5 Baso % (Auto) 1.2 H Absolute Neuts (auto) 1.4 L Absolute Lymphs (auto) 2.39 Nucleated RBC % 0 Sodium 138 Potassium 3.7 Chloride 108 H Carbon Dioxide 25.0 Anion Gap 5 BUN 14 Creatinine 0.67 Estim Creat Clear Calc 75.04 Est GFR (MDRD) Af Amer 118 Est GFR (MDRD) Non-Af 97 BUN/Creatinine Ratio 21.0 H Glucose 93 Calcium 9.4 Total Bilirubin 0.20 AST 16 ALT 19 Alkaline Phosphatase 67 Total Protein 6.4 Albumin 3.3 Globulin 3.1 Albumin/Globulin Ratio 1.1 Lipase 180 Radiography Diagnostic Testing: Clinical Impression(s) from Imaging Studies Abdomen/Pelvis CT 07/18/22 21:04 IMPRESSION: No acute abnormalities in the abdomen or pelvis. Electronically Signed: Nj Jensen MD at 22:52 EDT , EKG Initial EKG: Comments: EKG done for epigastric pain and patient with history of heart disease. EKG read by me shows a normal sinus rhythm with overall rate of 69. No ectopy. No acute ST elevation or depression. [place] interval, QRS duration and QTc are normal. Overall this is a normal EKG. Discharge Plan Triage Chief Complaint: Abd Pain ED Provider: Juventino Pappas Dx/Rx/DC Orders Clinical Impression: Abdominal pain Instructions: ED Abdominal Pain Unkn Cause Fem Prescriptions: New dicyclomine 20 mg tablet 20 mg PO TID Qty: 14 0RF No Action aspirin [Adult Low Dose Aspirin] 81 mg tablet,delayed release (DR/EC) 81 mg PO QODAY Rx Instructions: 81 mg PO; 3x week fluoxetine 10 mg capsule 10 mg PO DAILY doxazosin [Cardura] 1 mg tablet 1 mg PO DAILY Qty: 30 3RF lamotrigine 150 mg tablet 75 mg PO DAILY Label Comments: Take 0.5 tablets by mouth once daily. cholecalciferol (vitamin D3) 1,250 mcg (50,000 unit) capsule 1,250 mcg PO QWEEK albuterol sulfate [Ventolin HFA] 90 mcg/actuation HFA aerosol inhaler 2 inh inhalation Q6H PRN lorazepam [Ativan] 0.5 mg Tablet 0.5 mg PO BID PRN (Reason: Anxiety) fluticasone propionate [Flonase Allergy Relief] 50 mcg/actuation spray,suspension 2 spray intranasal DAILY PRN (Reason: Allergy Symptoms) Rx Instructions: administer into each nostril prednisone 50 mg tablet 50 mg PO DAILY Qty: 4 0RF hydrocodone-acetaminophen [hydrocodone-acetaminophen] 5-325 mg tablet 1 tab PO Q4H PRN PRN (Reason: Pain) 2 Days Qty: 10 0RF naproxen 500 mg tablet 500 mg PO BID Qty: 14 0RF famotidine 40 mg tablet 40 mg PO BID Qty: 90 3RF Breztri Aerosphere 160-9-4.8 mcg/actuation HFA aerosol inhaler 2 inh inhalation BID Qty: 10.7 11RF (DME) spacer See Rx Instructions .ROUTE .MEDSUPPLY Qty: 1 0RF Rx Instructions: As directed ibuprofen 400 mg tablet 400 mg PO ONCE PRN esomeprazole magnesium [Nexium 24HR] 20 mg capsule,delayed release(DR/EC) 20 mg PO DAILY PRN potassium chloride 20 mEq tablet extended release 20 meq PO .QOD Qty: 30 6RF Primary Care Provider: Ellis Crandall Referrals: Ellis Crandall MD [Primary Care Provider] - As Needed Friend,DO Aime [Med Staff - Active Staff] - As soon as possible Disposition Disposition: Home, Self Care
[2022-07-18] MEDS: 0.9% Normal Saline 1,000 ML 1000 ML IV (21:26)
[2022-07-18] MEDS: Ondansetron 4 MG/2 ML Vial IV (21:31)
[2022-07-18] MEDS: Ketorolac 15 MG/ML Vial IV (21:32)
--- NOTE | 2022-07-18 21:40 | ED.RN ---
reports feeling like her arm is on fire from her shoulder to her fingers with NS/Protonix administration. All meds stopped per pt request. IV site shows no signs of infiltration.
[2022-07-18 21:59] LABS: Absolute Lymphocyte Count 2.39 X10^3/uL (0.83-4.51); Absolute Neutrophil Count 1.4 X10^3/uL (2.0-7.7); Basophil# 0.05 X10^3/uL; Basophil% 1.2 % (0-1); Eosinophil# 0.11 X10^3/uL; Eosinophils% 2.5 % (0-5); Hemoglobin 12.4 g/dL (12.0-15.0); Lymphocyte # 2.39 X10^3/ul (0.83-4.51); Lymphocyte % 55.1 % (19-41); Mean Corp Hgb Conc 32.6 g/dL (32-36); Mean Corpuscular Hgb 28.2 pg (27.0-32.0); Mean Corpuscular Volume 86.4 fL (81-99); Mean Platelet Vol. 11.3 fl (6.2-12.0); Monocyte# 0.34 X10^3/uL; Monocyte% 7.8 % (0-10); NRBC Flagged by Analyzer 0 % (0-5); Neutrophil # 1.44 X10^3/uL (2.7-7.7); Neutrophil % 33.2 % (47-70); Platelet Count 248 K/mm3 (150-450); RBC Distribution Width CV 13.9 % (11.6-14.6); RBC Distribution Width SD 43.8 fl (35.1-43.9); White Blood Count 4.3 K/mm3 (4.4-11.0)
[2022-07-18 22:15] LABS: ALB/GLOB Ratio 1.1 RATIO (0.9-2.4); AST(SGOT) 16 U/L (15-37); Alanine Aminotransfer ALT/SGPT 19 U/L (13-56); Albumin, Serum 3.3 g/dL (3.2-5.0); Alkaline Phosphatase 67 U/L (45-117); Anion Gap 5 (5-15); BUN 14 mg/dL (7-18); Calcium,Total 9.4 mg/dL (8.5-10.1); Chloride 108 mmol/L (98-107); Creatinine, Serum 0.67 mg/dL (0.55-1.02); EST Glomerular Filtration Rate 97 mL/min (>60); Est Glom Filt Rate - Afr Amer 118 mL/min (>60); Estimated Creatinine Clearance 75.04 ml/min; Globulin 3.1 g/dL (2.2-4.2); Glucose 93 mg/dL (74-106); Lipase 180 U/L (73-393); Potassium 3.7 mmol/L (3.5-5.1); Protein, Total 6.4 g/dL (6.4-8.2); Sodium Level 138 mmol/L (136-145)
[2022-07-18 23:17] VITALS: BP 151/84; PULSE 84; RESP 18
[2022-07-18] MEDS: Dicyclomine 10 MG Capsule 20 MG PO (23:25)
== END 2022-07-18 23:26 | disposition home or self-care (01) ==
PROVIDERS: Emergency Provider Emergency Medicine; PCP Family Medicine; Visit Provider Emergency Medicine
DX: R10.9 Unspecified abdominal pain (principal); J44.9 Chronic obstructive pulmonary disease, unspecified; I25.10 Atherosclerotic heart disease of native coronary artery without angina pectoris; I25.5 Ischemic cardiomyopathy; M54.9 Dorsalgia, unspecified; I10 Essential (primary) hypertension; K76.89 Other specified diseases of liver; F17.200 Nicotine dependence, unspecified, uncomplicated; I25.2 Old myocardial infarction
CPT/HCPCS: 74177; 80053; 83690; 85025; 93005; 99282; J7030; Q9967; A4216; J2405; J3490

== ENCOUNTER → 2022-07-20 | Outpatient (CLI) | payer MEDICAID, SELFPAY ==
[2022-07-20 10:27] LABS: AST(SGOT) 14 U/L (15-37); Alanine Aminotransfer ALT/SGPT 18 U/L (13-56); Albumin, Serum 3.6 g/dL (3.2-5.0); Alkaline Phosphatase 66 U/L (45-117); Anion Gap 5 (5-15); BUN 10 mg/dL (7-18); BUN/Creat Ratio 15.4 RATIO (10-20); Bilirubin, Direct 0.08 mg/dL (0.00-0.30); Calcium,Total 9.4 mg/dL (8.5-10.1); Chloride 108 mmol/L (98-107); Cholesterol 294 mg/dL (200); Creatinine, Serum 0.65 mg/dL (0.55-1.02); EST Glomerular Filtration Rate 100 mL/min (>60); Est Glom Filt Rate - Afr Amer 121 mL/min (>60); Free T3 3.5 pg/mL (2.18-3.98); Globulin 3.6 g/dL (2.2-4.2); Glucose 89 mg/dL (74-106); High Density Lipoprotein 61 mg/dL; Potassium 3.6 mmol/L (3.5-5.1); Protein, Total 7.2 g/dL (6.4-8.2); Sodium Level 139 mmol/L (136-145); T4 Free Direct 0.94 ng/dL (0.76-1.46); Thyroid Stim Hormone (TSH) 1.29 uIU/mL (0.358-3.74); Triglycerides 119 mg/dL; Very Low Density Lipoprotein 24 mg/dL (5-40)
== END | disposition home or self-care (01) ==
LOC: LAB 09:31
PROVIDERS: PCP Family Medicine; Referring Provider Nurse Practitioner Gerontology; Visit Provider Nurse Practitioner Gerontology
DX: R53.83 Other fatigue (principal); E78.5 Hyperlipidemia, unspecified; E87.6 Hypokalemia
CPT/HCPCS: 36415; 80048; 80061; 80076; 84439; 84443; 84481

== ENCOUNTER → 2022-07-26 | Outpatient (CLI) | payer MEDICAID, SELFPAY ==
[2022-07-26 13:00] LABS: Amylase 54 U/L (25-115)
== END | disposition home or self-care (01) ==
LOC: LAB 11:24
PROVIDERS: PCP Family Medicine; Visit Provider Nurse Practitioner Adult Health
DX: R10.9 Unspecified abdominal pain (principal)
CPT/HCPCS: 36415; 82150

== ENCOUNTER 2022-07-27 20:10 | Emergency (ER) | payer MEDICAID, SELFPAY ==
[2022-07-27 20:10] VITALS: BP 151/101; PULSE 82; RESP 18; TEMP 36.7; O2SAT 100; BMI 29.2
--- NOTE | 2022-07-27 20:13 | EKG12_ITS ---
Test Reason : CP Blood Pressure : / mmHG Vent. Rate : 079 BPM Atrial Rate : 079 BPM P-R Int : 158 ms QRS Dur : 090 ms QT Int : 394 ms P-R-T Axes : 081 077 077 degrees QTc Int : 451 ms Normal sinus rhythm Normal ECG Confirmed by GARLAND KING, ALEX ([id number]), society editor FILI CASTILLO ([id number]) on 07/31/2022 8:59:03 AM Referred By: KEENA Confirmed By:BARRETT HAQUE MD
[2022-07-27 20:25] LABS: Absolute Lymphocyte Count 2.55 X10^3/uL (0.83-4.51); Absolute Neutrophil Count 1.9 X10^3/uL (2.0-7.7); Basophil# 0.06 X10^3/uL; Basophil% 1.2 % (0-1); Eosinophil# 0.18 X10^3/uL; Eosinophils% 3.5 % (0-5); Hemoglobin 13.1 g/dL (12.0-15.0); Lymphocyte # 2.55 X10^3/ul (0.83-4.51); Lymphocyte % 49.9 % (19-41); Mean Corp Hgb Conc 32.8 g/dL (32-36); Mean Corpuscular Hgb 28.7 pg (27.0-32.0); Mean Corpuscular Volume 87.5 fL (81-99); Mean Platelet Vol. 10.4 fl (6.2-12.0); Monocyte# 0.43 X10^3/uL; Monocyte% 8.4 % (0-10); NRBC Flagged by Analyzer 0 % (0-5); Neutrophil # 1.88 X10^3/uL (2.7-7.7); Neutrophil % 36.8 % (47-70); Platelet Count 304 K/mm3 (150-450); RBC Distribution Width CV 13.8 % (11.6-14.6); RBC Distribution Width SD 44.2 fl (35.1-43.9); Red Blood Count 4.57 M/mm3 (4.2-5.4); White Blood Count 5.1 K/mm3 (4.4-11.0)
--- NOTE | 2022-07-27 20:28 | RAD_ITS ---
EXAM: XR CHEST, 1 VIEW CLINICAL INDICATION: chest pain TECHNIQUE: Frontal view of the chest. This report was created using [employer] report generation technology. COMPARISON: 80 03/14/2022. FINDINGS: LUNGS AND PLEURAL SPACES: Unremarkable. No consolidation or edema. No pneumothorax. No effusion. HEART: Unremarkable. Cardiac silhouette not enlarged. MEDIASTINUM: Central airways and mediastinal contour are unremarkable. BONES/JOINTS: Unremarkable. SOFT TISSUES: Unremarkable. RAD/Chest 1 View (Portable) IMPRESSION: No radiographic evidence of acute cardiopulmonary disease and no interval change when compared to 06/28/2022. Electronically Signed: Macario Nguyen MD at 21:02 EDT ,
[2022-07-27 20:45] LABS: Anion Gap 7 (5-15); BUN 11 mg/dL (7-18); BUN/Creat Ratio 14.2 RATIO (10-20); Calcium,Total 9.5 mg/dL (8.5-10.1); Chloride 107 mmol/L (98-107); Creatinine, Serum 0.77 mg/dL (0.55-1.02); EST Glomerular Filtration Rate 82 mL/min (>60); Est Glom Filt Rate - Afr Amer 99 mL/min (>60); Estimated Creatinine Clearance 64.52 ml/min; Glucose 104 mg/dL (74-106); Sodium Level 138 mmol/L (136-145); Troponin-I HS 4 pg/mL (3.0-54.0)
[2022-07-27 21:29] VITALS: PULSE 68; RESP 16
--- NOTE | 2022-07-27 22:11 | ED.VIS.CHEST ---
HPI History of Present Illness Chief Complaint: Chest Pain Informant: patient Onset/Context/Timing Onset: Today Activity at onset: - (Since woke up this morning) Timing: Continuous Quality: Positive for Heaviness Location: Substernal Current Severity: Moderate Maximum Severity: Moderate Worsened By: Not Worsened By Exertion, Palpation or Breathing Relieved By: Nothing Associated Symptoms: Positive for - (Discomfort in the left arm and between shoulder blades and back all day today); Negative for Nausea, Vomiting, Diaphoresis, Dyspnea, Cough, Lightheadedness or Palpitations Narrative Narrative: Patient states she has been having intermittent sharp nonpleuritic relatively brief chest pains off and on for the last week along with elevated blood pressures. She states today all day she has had heaviness in her chest nonpleuritic, discomfort in her left arm, discomfort in her back. She states she had 1 stent, the last time she had a heart attack and needed that was about a year ago, she had discomfort in her back and dyspnea only. She has not had no dyspnea today. Blood pressure was 190/160 at 1 point today, her diastolic was over 100 all week, she talk to her doctor and was put on a new blood pressure medicine 2 weeks ago which she has been taking. 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 Back pain Barretts esophagus Bipolar affective disorder Borderline personality disorder Chest pain of uncertain etiology Chest pain, non-cardiac Chronic constipation Chronic left-sided thoracic back pain COPD (chronic obstructive pulmonary disease) Depression Difficulty swallowing Eloped from emergency department Essential (primary) hypertension Former smoker Gastric reflux GERD (gastroesophageal reflux disease) Headache History of echocardiogram History of Holter monitoring History of non-ST elevation myocardial infarction (NSTEMI) (08/10/21) History of ST elevation myocardial infarction (STEMI) (12/18/20) Intermittent palpitations Irritable bowel syndrome with diarrhea Ischemic cardiomyopathy Leg cramps Myocardial infarct Nicotine dependence 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) Post-menopausal Shortness of breath Shortness of breath on exertion Syncope Takotsubo cardiomyopathy (08/10/21) Ulcerative colitis Wears glasses Home Medications lorazepam 0.5 mg tablet (Ativan) 0.5 mg PO BID PRN Anxiety 06/19/21 [History Last Taken 1 Week Ago ~08/03/21] aspirin 81 mg tablet,delayed release (Adult Low Dose Aspirin) 81 mg PO QODAY HEALTH MAINTENANCE 07/13/21 [History Last Taken 08/07/21] fluticasone propionate 50 mcg/actuation nasal spray,suspension (Flonase Allergy Relief) 2 spray intranasal DAILY PRN Allergy Symptoms 10/29/21 [History Last Taken Unknown] fluoxetine 10 mg capsule 10 mg PO DAILY 12/14/21 [History Last Taken Unknown] albuterol sulfate 90 mcg/actuation aerosol inhaler (Ventolin HFA) 2 inh inhalation Q6H PRN 05/11/22 [History Last Taken Unknown] lamotrigine 150 mg tablet 75 mg PO DAILY 05/11/22 [History Last Taken Unknown] budesonide 160 mcg-glycopyr 9 mcg-formot 4.8 mcg/actuation HFA inhaler (Breztri Aerosphere) 2 inh inhalation BID #10.7 grams 05/23/22 [Rx Last Taken Unknown] spacer #1 ea 05/23/22 [Rx Last Taken Unknown] doxazosin 1 mg tablet (Cardura) 1 mg PO DAILY #30 tabs 06/01/22 [Rx Last Taken Unknown] esomeprazole magnesium 20 mg capsule,delayed release (Nexium 24HR) 20 mg PO DAILY PRN 06/01/22 [History Last Taken Unknown] ibuprofen 400 mg tablet 400 mg PO ONCE PRN 06/01/22 [History Last Taken Unknown] potassium chloride 20 mEq tablet,extended release 20 meq PO .QOD #30 tabs 06/01/22 [Rx Last Taken Unknown] naproxen 500 mg tablet 500 mg PO BID #14 tabs 07/01/22 [Rx Last Taken Unknown] ezetimibe 10 mg tablet (Zetia) 10 mg PO DAILY #30 tabs 07/20/22 [Rx Last Taken Unknown] clonidine HCl 0.2 mg tablet 0.2 mg PO BID PRN SBP > 175 #10 tabs 07/27/22 [Rx Last Taken Unknown] Allergy/AdvReac Type Severity Reaction Status Date / Time morphine Allergy Hives Verified 07/27/22 20:10 amlodipine AdvReac Intermediate chest Verified 07/27/22 20:10 pain and cannot breathe carvedilol [From Coreg] AdvReac Intermediate throat Verified 07/27/22 20:10 closing up and chest pressure citalopram [From Celexa] AdvReac NAUSEATED Verified 07/27/22 20:10 AND IRRITABLE lisinopril AdvReac SOB, chest Verified 07/27/22 20:10 tightness,throat closing venlafaxine [From Effexor] AdvReac DIDN'T Verified 07/27/22 20:10 WORK Family History Father CAD (coronary artery disease) Myocardial infarction Surgical History H/O section History of cardiac catheterization (08/11/21) History of coronary artery stent placement (12/18/20) History of esophagogastroduodenoscopy (EGD) History of left heart catheterization (05/17/21) Social History household members: none Smoking Status: Current some day smoker tobacco type: cigarettes how long ago did patient quit smokin days ago alcohol intake: never substance use type: does not use caffeine: Yes Type: coffee Number of servings: 2 ROS ROS ED Constitutional Constitutional ED: Denies chills or fever(s) Eyes Eyes: Denies change in vision or diplopia ENT ENT ED: Denies rhinorrhea or sore throat Cardiovascular Cardiovascular: Reports chest pain; Denies palpitations Respiratory/Chest Respiratory/Chest: Denies cough or dyspnea Gastrointestinal Gastrointestinal: Reports abdominal pain and other Details: Chronic abdominal issues, has seen gastroenterology recently, evaluated for EPI ; Denies diarrhea, nausea or vomiting Genitourinary Genitourinary ED: Denies dysuria or hematuria Musculoskeletal Musculoskeletal: Reports as per HPI, back pain and extremity pain; Denies neck pain Integumentary Denies abscess or rash Neurologic Neurologic: Denies headache(s), paresthesias or weakness Psychiatric Psychiatric: Denies anxiety or suicidal thoughts EXAM Physical Exam Const Vital Signs: 07/27/22 20:10 07/27/22 21:29 07/27/22 21:29 Temperature 98.0 F Temperature Source Temporal Pulse Rate 82 68 Respiratory Rate 18 16 Blood Pressure 151/101 H Blood Pressure Mean 117 Pulse Ox 100 Oxygen Delivery Method Room Air Room Air Positive well nourished and well developed General Appearance ED: well developed and NAD HEENT Reports moist mucous membranes normocephalic and atraumatic Eyes PERRL and EOMs intact bilaterally Neck full ROM and supple Resp normal respiratory effort and clear to auscultation bilaterally Cardio regular rate, regular rhythm and no murmurs GI non-tender and non-distended Auscultation: normoactive bowel sounds Palpation: soft Back/Spine no CVA tenderness General Back: other FROM Extremity normal to inspection General Extremety ED: Negative for edema, pulses abnormal or tenderness General Extremity: Negative for edema or pulses abnormal Neuro oriented x3, CN's II-XII intact bilaterally and no sensory deficits noted Sensorium / Orientation: awake and alert Motor Exam: strength 5/5 throughout Skin no rashes or lesions noted and no wounds Heart Score History: Moderately Suspicious ECG: Normal Age: >45 - <65 years Risk Factors: >/= 3 Risk Factors or History of CAD Troponin: </= Normal Limit Score: 4 MDM MDM MDM Narrative Medical decision making narrative: 1 view chest x-ray my interpretation is normal. Her EKG is normal, her troponin is in the single digits and very normal, this is at around 9-10 PM and she has had discomfort all day. Given all of that I think I can reassure her this is not acute coronary syndrome. Furthermore she states she has had chronic GI issues that are really been bothering her in this past week and I suspect it is probably related to her chest discomfort. Her blood pressure is not as high here as it was at home. She does not need acute intervention for her blood pressure. Close outpatient follow-up advised. I have given her a prescription for some clonidine to use as needed for elevated blood pressures until she can see her PCP since it is Saturday. Lab Data Attestation: I reviewed the patient's lab results. Labs: Laboratory Results - last 24 hr 07/27/22 07/27/22 20:20 20:20 WBC 5.1 RBC 4.57 Hgb 13.1 Hct 40.0 MCV 87.5 MCH 28.7 MCHC 32.8 RDW Std Deviation 44.2 H RDW Coeff of Dona 13.8 Plt Count 304 MPV 10.4 Immature Gran % (Auto) 0.200 Neut % (Auto) 36.8 L Lymph % (Auto) 49.9 H Hendricks % (Auto) 8.4 Eos % (Auto) 3.5 Baso % (Auto) 1.2 H Absolute Neuts (auto) 1.9 L Absolute Lymphs (auto) 2.55 Nucleated RBC % 0 Sodium 138 Potassium 4.0 Chloride 107 Carbon Dioxide 24.0 Anion Gap 7 BUN 11 Creatinine 0.77 Estim Creat Clear Calc 64.52 Est GFR (MDRD) Af Amer 99 Est GFR (MDRD) Non-Af 82 BUN/Creatinine Ratio 14.2 Glucose 104 Calcium 9.5 Troponin I High Sens 4 Radiography Diagnostic Testing: Clinical Impression(s) from Imaging Studies Chest X-Ray 07/27/22 20:28 IMPRESSION: No radiographic evidence of acute cardiopulmonary disease and no interval change when compared to 06/28/2022. Electronically Signed: Macario Nguyen MD at 21:02 EDT , Rhythm Strip Rhythm Strip: Sinus Rhythm Rate: 65 Ectopy: None EKG Initial EKG: Attestation: I personally reviewed and interpreted this EKG as follows: Interpretation: Sinus Rhythm and No Acute Injury Pattern Comments: normal EKG Discharge Plan Triage Chief Complaint: Chest Pain ED Provider: Khadar Izaguirre Dx/Rx/DC Orders Clinical Impression: Accelerated hypertension, Chest pain Instructions: Controlling High Blood Pressure, ED Chest Pain, Noncardiac Prescriptions: New clonidine HCl 0.2 mg tablet 0.2 mg PO BID PRN (Reason: SBP > 175) Qty: 10 0RF No Action aspirin [Adult Low Dose Aspirin] 81 mg tablet,delayed release (DR/EC) 81 mg PO QODAY Rx Instructions: 81 mg PO; 3x week fluoxetine 10 mg capsule 10 mg PO DAILY doxazosin [Cardura] 1 mg tablet 1 mg PO DAILY Qty: 30 3RF lamotrigine 150 mg tablet 75 mg PO DAILY Label Comments: Take 0.5 tablets by mouth once daily. albuterol sulfate [Ventolin HFA] 90 mcg/actuation HFA aerosol inhaler 2 inh inhalation Q6H PRN lorazepam [Ativan] 0.5 mg Tablet 0.5 mg PO BID PRN (Reason: Anxiety) fluticasone propionate [Flonase Allergy Relief] 50 mcg/actuation spray,suspension 2 spray intranasal DAILY PRN (Reason: Allergy Symptoms) Rx Instructions: administer into each nostril naproxen 500 mg tablet 500 mg PO BID Qty: 14 0RF Breztri Aerosphere 160-9-4.8 mcg/actuation HFA aerosol inhaler 2 inh inhalation BID Qty: 10.7 11RF (DME) spacer See Rx Instructions .ROUTE .MEDSUPPLY Qty: 1 0RF Rx Instructions: As directed ibuprofen 400 mg tablet 400 mg PO ONCE PRN esomeprazole magnesium [Nexium 24HR] 20 mg capsule,delayed release(DR/EC) 20 mg PO DAILY PRN potassium chloride 20 mEq tablet extended release 20 meq PO .QOD Qty: 30 6RF ezetimibe [Zetia] 10 mg tablet 10 mg PO DAILY Qty: 30 6RF Primary Care Provider: Ellis Crandall Referrals: Ellis Crandall MD [Primary Care Provider] - As soon as possible Disposition Disposition: Home, Self Care
[2022-07-27] MEDS: Dicyclomine 10 MG Capsule 20 MG PO (22:13)
[2022-07-27] MEDS: Mag Hydrox/Al Hydrox/Simeth 30 ML UDC PO (22:13)
[2022-07-27 22:33] VITALS: BP 157/92; PULSE 65; RESP 16; O2SAT 99
== END 2022-07-27 22:33 | disposition home or self-care (01) ==
PROVIDERS: Emergency Provider Emergency Medicine; PCP Family Medicine; Visit Provider Emergency Medicine
DX: R07.9 Chest pain, unspecified (principal); J44.9 Chronic obstructive pulmonary disease, unspecified; I25.5 Ischemic cardiomyopathy; I25.10 Atherosclerotic heart disease of native coronary artery without angina pectoris; F17.200 Nicotine dependence, unspecified, uncomplicated; I10 Essential (primary) hypertension; Z95.5 Presence of coronary angioplasty implant and graft; I25.2 Old myocardial infarction
CPT/HCPCS: 71045; 80048; 84484; 85025; 93005; 99284; A4216

== ENCOUNTER → 2022-07-31 | Outpatient (CLI) | payer MEDICAID, SELFPAY ==
[2022-08-04 16:27] LABS: Fats, Neutral Normal (.); Fats, Total Normal (.)
[2022-08-04 16:41] LABS: Pancreatic Elastase, Fecal 268 (>200)
== END | disposition home or self-care (01) ==
LOC: LAB 11:29
PROVIDERS: PCP Family Medicine; Visit Provider Nurse Practitioner Adult Health
DX: R10.9 Unspecified abdominal pain (principal)
CPT/HCPCS: 82653; 82705

== ENCOUNTER → 2022-08-17 | Outpatient (CLI) | payer MEDICAID, SELFPAY ==
--- NOTE | 2022-08-17 09:40 | RAD_ITS ---
EXAM: Double contrasted esophagram. INDICATION: Abdominal pain. TECHNIQUE: Standard esophagram with barium and effervescent capsules. Air kerma: 60.42 mGy Fluoroscopy time: 2:12 minutes/seconds. 98 images. FINDINGS: Unremarkable transit of the contrast bolus through the oral cavity. Unremarkable transit into the esophagus. No evidence of laryngeal penetration or aspiration. Unremarkable transit of the contrast bolus through the esophagus. Normal esophageal motility was observed. The esophagus demonstrates normal mucosal features, no evidence of esophageal diverticula or strictures. No evidence of hiatus hernia. No evidence of gastroesophageal reflux disease is seen. RAD/Esophagus Dual Contrast IMPRESSION: Unremarkable double contrast esophagram. Electronically Signed: Bret Trujillo MD at 9:39 EDT Reading Location ID and State: [facility] / [place] Tel , Service support ,
== END | disposition home or self-care (01) ==
LOC: RAD 08:38
PROVIDERS: PCP Family Medicine; Referring Provider Nurse Practitioner Adult Health; Visit Provider Nurse Practitioner Adult Health
DX: R07.9 Chest pain, unspecified (principal); R10.9 Unspecified abdominal pain; R68.81 Early satiety
CPT/HCPCS: 74221

== ENCOUNTER → 2022-08-20 | Outpatient (CLI) | payer MEDICAID, SELFPAY ==
--- NOTE | 2022-08-20 18:03 | STRESSREP ---
Stress Test Report 57-year-old lady with a history of chest pain. Exercise stress test. Resting EKG demonstrates normal sinus rhythm with a rate of 78 bpm. Resting blood pressure is 140/88 mmHg. The patient exercised according to regular Mariano protocol for total duration of 4 minutes and 16 seconds. The maximum heart rate attained was 146 bpm which was 86% of max impacted heart rate the maximum workload was 7 metabolic equivalents. At rest there were no ST or T wave changes noted suggest ischemia and at peak exercise upsloping ST changes only were noted we did not meet the criteria for ischemia. No clinical angina was noted the test was terminated due to the target heart rate being achieved and dyspnea. The peak blood pressure was 220/104 mmHg which was hypertensive response to exercise. No arrhythmias were present. Conclusion: Stress test with no EKG criteria for ischemia at a moderate workload. No clinical angina noted.
== END | disposition home or self-care (01) ==
LOC: CVS 10:50
PROVIDERS: PCP Family Medicine; Referring Provider Internal Medicine Cardiovascular Disease; Visit Provider Internal Medicine Cardiovascular Disease
DX: R06.09 Other forms of dyspnea (principal); R53.83 Other fatigue; I25.10 Atherosclerotic heart disease of native coronary artery without angina pectoris; I25.2 Old myocardial infarction; I51.81 Takotsubo syndrome; R07.9 Chest pain, unspecified
CPT/HCPCS: 93017

== ENCOUNTER → 2022-09-14 | Outpatient (CLI) | payer MEDICAID, SELFPAY ==
--- NOTE | 2022-09-14 11:31 | NM_ITS ---
CLINICAL: 57-year-old female with history of abdominal pain, gastroesophageal reflux disease and early satiety. SEMI-SOLID PHASE 99m Tc SULFUR COLLOID GASTRIC EMPTYING STUDY COMPARISON: Esophagram report dated 08/17/2022 FINDINGS: The patient was administered 1.0 mCi of 99m Tc sulfur colloid mixed with oatmeal and consumed per os. Image acquisitions in the anterior-posterior projections were obtained for 60 minutes. There is prompt visualization of the stomach. There is no gastroesophageal reflux identified. The T ? emptying was calculated to be 35.14 minutes, (Normal: 12-56 minutes). NM/Gastric Emptying Study IMPRESSION: 1. NORMAL 99m Tc sulfur colloid semi-solid phase (oatmeal) gastric emptying imaging examination. A. There is normal and preserved semi-solid phase gastric emptying compared to normal controls. (Barbara et al, J Nucl Med Tech 38: 186, 2010). Electronically Signed: Oscar Guzman, at 9:36 EDT ,
== END | disposition home or self-care (01) ==
LOC: NM 11:30
PROVIDERS: PCP Family Medicine; Referring Provider Nurse Practitioner Adult Health; Visit Provider Nurse Practitioner Adult Health
DX: R07.9 Chest pain, unspecified (principal); R10.9 Unspecified abdominal pain; R68.81 Early satiety
CPT/HCPCS: 78264; A9541

== ENCOUNTER 2022-10-14 13:13 | Emergency (ER) | payer MEDICAID, SELFPAY ==
[2022-10-14 13:14] VITALS: BP 130/98; PULSE 79; RESP 18; TEMP 36.4; O2SAT 95; BMI 26.8
--- NOTE | 2022-10-14 13:25 | EKG12_ITS ---
Test Reason : CP Blood Pressure : / mmHG Vent. Rate : 085 BPM Atrial Rate : 085 BPM P-R Int : 144 ms QRS Dur : 092 ms QT Int : 382 ms P-R-T Axes : 071 063 063 degrees QTc Int : 454 ms Normal sinus rhythm Normal ECG Confirmed by JORJE KING, LEONIDES ([id number]), communications editor FILI CASTILLO ([id number]) on 10/16/2022 8:10:41 AM Referred By: MIGUEL Confirmed By:LEONIDES RECINOS MD
--- NOTE | 2022-10-14 13:26 | EDS_ITS ---
HPI History of Present Illness Chief Complaint: Chest Pain Detail of Chief Complaint: Chest pain Informant: patient Narrative Narrative: Patient presents the emergency department complaint of chest pain us around 9 AM. Patient complains of left-sided chest pain as well as pain between her scapula. She rates her pain about a 7 out of 10. She denies nausea or vomiting. She denies radiation of the pain. She also describes some upper a bdomen pain that she has had for some time that nobody can figure out. Patient denies recent travel or surgery. She has no history of PE or DVT. She has had a cardiac stent that was placed about 2 years ago. She denies recent illness. 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 Back pain Barretts esophagus Bipolar affective disorder Borderline personality disorder Chest pain of uncertain etiology Chest pain, non-cardiac Chronic constipation Chronic left-sided thoracic back pain COPD (chronic obstructive pulmonary disease) Depression Difficulty swallowing Eloped from emergency department Essential (primary) hypertension Former smoker Gastric reflux GERD (gastroesophageal reflux disease) Headache History of echocardiogram History of Holter monitoring History of non-ST elevation myocardial infarction (NSTEMI) (08/10/21) History of ST elevation myocardial infarction (STEMI) (12/18/20) Intermittent palpitations Irritable bowel syndrome with diarrhea Ischemic cardiomyopathy Leg cramps Myocardial infarct Nicotine dependence 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) Post-menopausal Shortness of breath Shortness of breath on exertion Syncope Takotsubo cardiomyopathy (08/10/21) Ulcerative colitis Wears glasses Home Medications lorazepam 0.5 mg tablet (Ativan) 0.5 mg PO BID PRN Anxiety 06/19/21 [History Last Taken 1 Week Ago ~08/03/21] aspirin 81 mg tablet,delayed release (Adult Low Dose Aspirin) 81 mg PO QODAY HEALTH MAINTENANCE 07/13/21 [History Last Taken 08/07/21] fluticasone propionate 50 mcg/actuation nasal spray,suspension (Flonase Allergy Relief) 2 spray intranasal DAILY PRN Allergy Symptoms 10/29/21 [History Last Taken Unknown] fluoxetine 10 mg capsule 10 mg PO DAILY 12/14/21 [History Last Taken Unknown] lamotrigine 150 mg tablet 75 mg PO DAILY 05/11/22 [History Last Taken Unknown] spacer #1 ea 05/23/22 [Rx Last Taken Unknown] doxazosin 1 mg tablet (Cardura) 1 mg PO DAILY #30 tabs 06/01/22 [Rx Last Taken Unknown] esomeprazole magnesium 20 mg capsule,delayed release (Nexium 24HR) 20 mg PO DAILY PRN 06/01/22 [History Last Taken Unknown] ibuprofen 400 mg tablet 400 mg PO ONCE PRN 06/01/22 [History Last Taken Unknown] potassium chloride 20 mEq tablet,extended release 20 meq PO .QOD #30 tabs 06/01/22 [Rx Last Taken Unknown] naproxen 500 mg tablet 500 mg PO BID #14 tabs 07/01/22 [Rx Last Taken Unknown] ezetimibe 10 mg tablet (Zetia) 10 mg PO DAILY #30 tabs 07/20/22 [Rx Last Taken Unknown] clonidine HCl 0.2 mg tablet 0.2 mg PO BID PRN SBP > 175 #10 tabs 07/27/22 [Rx Last Taken Unknown] albuterol sulfate 90 mcg/actuation aerosol inhaler (Ventolin HFA) 2 inh inhalation Q6H PRN shortness of breath or wheezing #8.5 grams 09/11/22 [Rx Last Taken Unknown] budesonide 160 mcg-glycopyr 9 mcg-formot 4.8 mcg/actuation HFA inhaler (Breztri Aerosphere) 2 inh inhalation BID #10.7 grams 09/11/22 [Rx Last Taken Unknown] Allergy/AdvReac Type Severity Reaction Status Date / Time morphine Allergy Hives Verified 10/14/22 13:15 amlodipine AdvReac Intermediate chest Verified 10/14/22 13:15 pain and cannot breathe carvedilol [From Coreg] AdvReac Intermediate throat Verified 10/14/22 13:15 closing up and chest pressure citalopram [From Celexa] AdvReac NAUSEATED Verified 10/14/22 13:15 AND IRRITABLE lisinopril AdvReac SOB, chest Verified 10/14/22 13:15 tightness,throat closing venlafaxine [From Effexor] AdvReac DIDN'T Verified 10/14/22 13:15 WORK Family History Father CAD (coronary artery disease) Myocardial infarction Surgical History H/O section History of cardiac catheterization (08/11/21) History of coronary artery stent placement (12/18/20) History of esophagogastroduodenoscopy (EGD) History of left heart catheterization (05/17/21) Social History household members: none Smoking Status: Current some day smoker tobacco type: cigarettes how long ago did patient quit smokin days ago alcohol intake: never substance use type: does not use caffeine: Yes Type: coffee Number of servings: 2 ROS ROS ED Review of Systems ROS Unobtainable: other Constitutional Constitutional ED: Reports lethargy; Denies chills, fever(s), sweats or weight loss Eyes Eyes: Denies blurry vision, change in vision or diplopia ENT ENT ED: Denies rhinorrhea or sore throat Cardiovascular Cardiovascular: Reports chest pain; Denies orthopnea or racing heartbeat Respiratory/Chest Respiratory/Chest: Reports dyspnea and dyspnea on exertion; Denies cough, orthopnea or sputum Gastrointestinal Gastrointestinal: Reports abdominal pain; Denies diarrhea, nausea or vomiting Genitourinary Genitourinary ED: Denies dysuria, hematuria or urinary frequency Musculoskeletal Musculoskeletal: Denies arthralgias, back pain, myalgias or neck pain Integumentary Denies abscess, Abrasions or rash Neurologic Neurologic: Denies headache(s) or weakness Psychiatric Psychiatric: Denies anxiety, depression or suicidal thoughts Endocrine Endocrinology: Denies polydipsia, polyphagia or polyuria Hematologic/Lymphatic Hematologic/Lymphatic: Denies easy bleeding, easy bruising or lymphadenopathy Allergic/Immunologic Allergic/Immunologic ED: Denies mouth swelling, tongue swelling or urticaria EXAM Physical Exam Const Vital Signs: 10/14/22 13:14 Temperature 97.5 F L Temperature Source Temporal Pulse Rate 79 Respiratory Rate 18 Blood Pressure 130/98 H Blood Pressure Mean 108 Pulse Ox 95 Oxygen Delivery Method Room Air Positive well nourished and well developed General Appearance ED: well developed and NAD HEENT Reports TM's clear and moist mucous membranes normocephalic and atraumatic; Negative for trauma or tenderness Tympanic Membrane ED: Yes TM's clear Eyes PERRL and EOMs intact bilaterally General Eye ED: Negative for pale conjunctiva or scleral icterus Neck no lymphadenopathy, supple and no JVD General: Negative for tenderness Chest Wall inspection of chest normal Chest Narrative: Tenderness palpation over the left anterior chest wall that somewhat reproduces her pain. Chest: Negative for tenderness Resp normal respiratory effort and clear to auscultation bilaterally Effort and Inspection: Negative for respiratory distress or pain with movement Auscultation: Negative for rhonchi, wheezes or diminished lung sounds Cardio regular rate, regular rhythm, S1 normal heart sound, S2 normal heart sound and no murmurs Peripheral Pulses: pulses 2+ throughout GI normal to inspection, nondistended, normoactive bowel sounds, soft to palpation, non-distended and no masses GI Narrative: Tenderness to patient with the epigastric region with some guarding. There is no rebound, rigidity, or peritoneal signs. Back/Spine no CVA tenderness and no thoracic nor lumbar tenderness Extremity normal to inspection General Extremety ED: Negative for edema General Extremity: Negative for edema Neuro oriented x3, CN's II-XII intact bilaterally, no sensory deficits noted and gait normal Sensorium / Orientation: awake, alert, oriented to person, oriented to place and oriented to time Motor Exam: strength 5/5 throughout and strength abnormal Psych mental status grossly normal Skin no rashes or lesions noted and no wounds MDM MDM MDM Narrative Medical decision making narrative: On arrival we ordered an EKG that showed a sinus rhythm with a rate of 85 bpm with no acute ST segment changes. I ordered an IV and lab work-up including troponin and D-dimer as well as chest x-ray. Patient became upset when the nurse could not obtain the IV after the second attempt and is asking to sign out AGAINST MEDICAL ADVICE. I went back in to speak to the patient and explained to her my concerns regarding her chest pain given that she is got a heart history with prior stenting. Patient states that she just wants to leave and she will go to a different hospital if she gets worse but does not want to stay. She understands risk of heart attack, , disability or other catastrophic illness. Patient is able to and make an informed decision and has capacity. Discharge Plan Triage Chief Complaint: Chest Pain ED Provider: Fely Hinds Dx/Rx/DC Orders Clinical Impression: Chest pain Instructions: ED Chest Pain, Uncertain Cause Prescriptions: No Action aspirin [Adult Low Dose Aspirin] 81 mg tablet,delayed release (DR/EC) 81 mg PO QODAY Rx Instructions: 81 mg PO; 3x week fluoxetine 10 mg capsule 10 mg PO DAILY doxazosin [Cardura] 1 mg tablet 1 mg PO DAILY Qty: 30 3RF lamotrigine 150 mg tablet 75 mg PO DAILY Label Comments: Take 0.5 tablets by mouth once daily. Breztri Aerosphere 160-9-4.8 mcg/actuation HFA aerosol inhaler 2 inh inhalation BID Qty: 10.7 11RF albuterol sulfate [Ventolin HFA] 90 mcg/actuation HFA aerosol inhaler 2 inh inhalation Q6H PRN (Reason: shortness of breath or wheezing) Qty: 8.5 11RF lorazepam [Ativan] 0.5 mg Tablet 0.5 mg PO BID PRN (Reason: Anxiety) fluticasone propionate [Flonase Allergy Relief] 50 mcg/actuation spray,suspension 2 spray intranasal DAILY PRN (Reason: Allergy Symptoms) Rx Instructions: administer into each nostril naproxen 500 mg tablet 500 mg PO BID Qty: 14 0RF clonidine HCl 0.2 mg tablet 0.2 mg PO BID PRN (Reason: SBP > 175) Qty: 10 0RF (DME) spacer See Rx Instructions .ROUTE .MEDSUPPLY Qty: 1 0RF Rx Instructions: As directed ibuprofen 400 mg tablet 400 mg PO ONCE PRN esomeprazole magnesium [Nexium 24HR] 20 mg capsule,delayed release(DR/EC) 20 mg PO DAILY PRN potassium chloride 20 mEq tablet extended release 20 meq PO .QOD Qty: 30 6RF ezetimibe [Zetia] 10 mg tablet 10 mg PO DAILY Qty: 30 6RF Primary Care Provider: Ellis Crandall Referrals: Ellis Crandall MD [Primary Care Provider] - Disposition Disposition: Against Medical Advice
[2022-10-14 13:30] VITALS: BP 153/136; PULSE 79; RESP 16; TEMP 36.8; O2SAT 96
--- NOTE | 2022-10-14 14:19 | NURSING ---
1330- Patient upset and agitated due to needing IV and lab work. Patient started ripping off monitoring equipment and started getting dressed. Education provided to patient about risks of leaving AMA. Dr. Hinds notified and spoke with patient. AMA paperwork completed.
== END 2022-10-14 14:34 | disposition left against medical advice (07) ==
PROVIDERS: Emergency Provider Emergency Medicine; PCP Family Medicine; Visit Provider Emergency Medicine
DX: R07.9 Chest pain, unspecified (principal); J44.9 Chronic obstructive pulmonary disease, unspecified; I25.5 Ischemic cardiomyopathy; I25.10 Atherosclerotic heart disease of native coronary artery without angina pectoris; I10 Essential (primary) hypertension; F17.200 Nicotine dependence, unspecified, uncomplicated
CPT/HCPCS: 93005; 99283

== ENCOUNTER → 2022-10-15 | Outpatient (CLI) | payer MEDICAID, SELFPAY ==
--- NOTE | 2022-10-15 16:50 | RAD_ITS ---
INDICATION: Chest pain EXAMINATION/TECHNIQUE: X-RAY - XR Chest 2 Views COMPARISON: 07/27/2022 FINDINGS: LIFE-SUPPORT AND LINES: 1. None HEART AND VESSELS: The cardiac silhouette, pulmonary vasculature have normal appearance. No evidence of congestive failure. LUNGS AND PLEURAL SPACES: Lungs are mildly hyperexpanded. No infiltrate, consolidation, congestive failure or effusion. No pulmonary mass is noted. MEDIASTINUM AND HILAR REGIONS: No masses adenopathy noted. No areas of calcification. Visualized upper airway is normal in position. BONY ELEMENTS: No acute bony changes noted. RAD/Chest PA and Lateral IMPRESSION: 1. No evidence of acute cardiopulmonary process. Mild pulmonary hyperexpansion which appears stable. Electronically Signed: Oscar Chand MD at 17:20 [facility] ,
[2022-10-15 17:24] LABS: Troponin-I HS 5 pg/mL (3.0-54.0)
[2022-10-15 17:53] LABS: D-Dimer Quantitative (DVT/PE) 0.36 FEU/ug/m (0.27-0.49)
== END | disposition home or self-care (01) ==
LOC: LAB 16:27
PROVIDERS: PCP Family Medicine; Referring Provider Nurse Practitioner Family; Visit Provider Nurse Practitioner Family
DX: R07.9 Chest pain, unspecified (principal); M54.9 Dorsalgia, unspecified; I25.10 Atherosclerotic heart disease of native coronary artery without angina pectoris; I25.2 Old myocardial infarction; Z95.5 Presence of coronary angioplasty implant and graft
CPT/HCPCS: 36415; 71046; 84484; 85379

== ENCOUNTER → 2022-10-19 | Outpatient (CLI) | payer MEDICAID, SELFPAY ==
[2022-10-19 12:46] LABS: AST(SGOT) 17 U/L (15-37); Alanine Aminotransfer ALT/SGPT 20 U/L (13-56); Albumin, Serum 3.6 g/dL (3.2-5.0); Alkaline Phosphatase 58 U/L (45-117); Bilirubin, Direct 0.09 mg/dL (0.00-0.30); Cholesterol 281 mg/dL (200); Globulin 3.6 g/dL (2.2-4.2); High Density Lipoprotein 64 mg/dL; Protein, Total 7.2 g/dL (6.4-8.2); Triglycerides 113 mg/dL; Very Low Density Lipoprotein 23 mg/dL (5-40)
== END | disposition home or self-care (01) ==
LOC: LAB 11:45
PROVIDERS: PCP Family Medicine; Visit Provider Nurse Practitioner Gerontology
DX: E78.5 Hyperlipidemia, unspecified (principal)
CPT/HCPCS: 36415; 80061; 80076

== ENCOUNTER 2022-11-04 09:17 | Emergency (ER) | payer MEDICAID, SELFPAY ==
[2022-11-04 09:17] VITALS: BP 169/111; PULSE 88; RESP 16; TEMP 36.7; O2SAT 100
[2022-11-04 09:18] VITALS: BP 153/79; PULSE 87; RESP 18; TEMP 36.2; O2SAT 100; BMI 24.5
[2022-11-04 09:32] VITALS: O2SAT 100
--- NOTE | 2022-11-04 09:32 | EKG12_ITS ---
Test Reason : Blood Pressure : / mmHG Vent. Rate : 086 BPM Atrial Rate : 086 BPM P-R Int : 148 ms QRS Dur : 092 ms QT Int : 366 ms P-R-T Axes : 075 072 078 degrees QTc Int : 437 ms Normal sinus rhythm Normal ECG Confirmed by LEONIDES RECINOS MD ([id number]), international editorial producer FILI CASTILLO ([id number]) on 11/06/2022 11:26:23 AM Referred By: DIANA Confirmed By:LEONIDES RECINOS MD
--- NOTE | 2022-11-04 09:38 | EDS_ITS ---
HPI History of Present Illness Chief Complaint: Chest Pain Informant: patient Onset/Context/Timing Onset: Today and Weeks Activity at onset: gradual Timing: Intermittent Quality: Positive for Dull and Heaviness Location: Substernal Current Severity: Gone Maximum Severity: Mild Worsened By: Exertion; Not Worsened By Breathing or Coughing Relieved By: Rest Associated Symptoms: Positive for Dyspnea; Negative for Nausea, Vomiting, Diaphoresis, Cough, Fever, Lightheadedness, Acid Reflux or Palpitations Narrative Narrative: 57-year-old female history of hypertension and a 30+ pack year history of s moking only smokes occasionally now. History of COPD no O2. Had an WA 2 years ago and has 1 cardiac stent is on aspirin every other day could not tolerate any blood thinners. States the last several weeks she has had intrascapular back pain like she had when she had her prior cardiac history. She is also had intermittent chest pain that feels like a squeezing or heavy weight on her chest. It is associated with exertion. She said her exertional dyspnea has gotten worse. She denies any leg pain or swelling. She denies any nausea or diaphoresis. She is never had a blood clot. States the pain is similar to her prior WA just less severe and currently she is pain-free. Prior Similar Symptoms: Yes Recent Illness/Hospitalization: No CVD Risk Factors: Positive for Hypertension; Negative for Diabetes PE Risk Factors: Negative for Recent Travel/Surgery, Recent Immobilization, Prio r DVT or PE, Cancer or OCP + Smoking + >/=35 TAD Risk Factors: Negative for Marfan's Syndrome [facility] Medical History Abdominal pain Adverse drug reaction Anxiety disorder Asthma-COPD overlap syndrome Atherosclerotic heart disease of [place] coronary artery without angina pectoris Back pain Barretts esophagus Bipolar affective disorder Borderline personality disorder Chest pain of uncertain etiology Chest pain, non-cardiac Chronic constipation Chronic left-sided thoracic back pain COPD (chronic obstructive pulmonary disease) Depression Difficulty swallowing Eloped from emergency department Essential (primary) hypertension Former smoker Gastric reflux GERD (gastroesophageal reflux disease) Headache History of echocardiogram History of Holter monitoring History of non-ST elevation myocardial infarction (NSTEMI) (08/10/21) History of ST elevation myocardial infarction (STEMI) (12/18/20) Intermittent palpitations Irritable bowel syndrome with diarrhea Ischemic cardiomyopathy Leg cramps Myocardial infarct Nicotine dependence 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) Post-menopausal Shortness of breath Shortness of breath on exertion Syncope Takotsubo cardiomyopathy (08/10/21) Ulcerative colitis Wears glasses Home Medications lorazepam 0.5 mg tablet (Ativan) 0.5 mg PO BID PRN Anxiety 06/19/21 [History Last Taken 1 Week Ago ~08/03/21] aspirin 81 mg tablet,delayed release (Adult Low Dose Aspirin) 81 mg PO QODAY HEALTH MAINTENANCE 07/13/21 [History Last Taken 08/07/21] fluticasone propionate 50 mcg/actuation nasal spray,suspension (Flonase Allergy Relief) 2 spray intranasal DAILY PRN Allergy Symptoms 10/29/21 [History Last Taken Unknown] fluoxetine 10 mg capsule 10 mg PO DAILY 12/14/21 [History Last Taken Unknown] lamotrigine 150 mg tablet 100 mg PO DAILY 05/11/22 [History Last Taken Unknown] spacer #1 ea 05/23/22 [Rx Last Taken Unknown] doxazosin 1 mg tablet (Cardura) 1 mg PO DAILY #30 tabs 06/01/22 [Rx Last Taken Unknown] esomeprazole magnesium 20 mg capsule,delayed release (Nexium 24HR) 20 mg PO DAILY PRN Heartburn 06/01/22 [History Last Taken Unknown] potassium chloride 20 mEq tablet,extended release 20 meq PO .QOD #30 tabs 06/01/22 [Rx Last Taken Unknown] naproxen 500 mg tablet 500 mg PO BID #14 tabs 07/01/22 [Rx Last Taken Unknown] ezetimibe 10 mg tablet (Zetia) 10 mg PO DAILY #30 tabs 07/20/22 [Rx Last Taken Unknown] clonidine HCl 0.2 mg tablet 0.2 mg PO BID PRN SBP > 175 #10 tabs 07/27/22 [Rx Last Taken Unknown] albuterol sulfate 90 mcg/actuation aerosol inhaler (Ventolin HFA) 2 inh inhalation Q6H PRN shortness of breath or wheezing #8.5 grams 09/11/22 [Rx Last Taken Unknown] budesonide 160 mcg-glycopyr 9 mcg-formot 4.8 mcg/actuation HFA inhaler (Breztri Aerosphere) 2 inh inhalation BID #10.7 grams 09/11/22 [Rx Last Taken Unknown] Allergy/AdvReac Type Severity Reaction Status Date / Time morphine Allergy Hives Verified 11/04/22 09:28 amlodipine AdvReac Intermediate chest Verified 11/04/22 09:28 pain and cannot breathe carvedilol [From Coreg] AdvReac Intermediate throat Verified 11/04/22 09:28 closing up and chest pressure citalopram [From Celexa] AdvReac NAUSEATED Verified 11/04/22 09:28 AND IRRITABLE lisinopril AdvReac SOB, chest Verified 11/04/22 09:28 tightness,throat closing venlafaxine [From Effexor] AdvReac DIDN'T Verified 11/04/22 09:28 WORK Family History Father CAD (coronary artery disease) Myocardial infarction Surgical History H/O section History of cardiac catheterization (08/11/21) History of coronary artery stent placement (12/18/20) History of esophagogastroduodenoscopy (EGD) History of left heart catheterization (05/17/21) Social History household members: none Smoking Status: Current some day smoker tobacco type: cigarettes how long ago did patient quit smokin days ago alcohol intake: never substance use type: does not use caffeine: Yes Type: coffee Number of servings: 2 ROS ROS ED ROS Narrative Chest pain. Exertional chest pain. Exertional dyspnea. Review of Systems ROS Unobtainable: Denies due to encephalopathy Constitutional Constitutional ED: Denies chills or fever(s) Eyes Eyes: Reports none ENT ENT ED: Denies ear pain Cardiovascular Cardiovascular: Reports as per HPI and chest pain; Denies palpitations or racing heartbeat Respiratory/Chest Respiratory/Chest: Reports dyspnea; Denies cough Gastrointestinal Gastrointestinal: Denies abdominal pain Genitourinary Genitourinary ED: Denies dysuria or hematuria Musculoskeletal Musculoskeletal: Denies arthralgias or back pain Integumentary Denies abscess or Abrasions Neurologic Neurologic: Denies headache(s) Psychiatric Psychiatric: Denies anxiety or depression Endocrine Endocrinology: Denies cold intolerance Hematologic/Lymphatic Hematologic/Lymphatic: Denies easy bleeding Allergic/Immunologic Allergic/Immunologic ED: Denies mouth swelling EXAM Physical Exam Narrative Exam Narrative: [id number] female no acute distress. Pulse ox room air no hypoxia. Vital signs stable afebrile. H EENT exam unremarkable. Neck nontender no JVD. Lungs clear to auscultation bilaterally. Heart regular rhythm rate about 85 no murmur. Chest were nontender. Abdomen soft nontender. Moving all 4 extremities. Equal symmetrical radial pulses. 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 Normal dorsi plantarflexion. Calves are nontender without edema or cords. Back nontender. Neurologic exam awake alert no focal motor deficits. Const Vital Signs: 11/04/22 09:18 11/04/22 09:17 11/04/22 09:32 Temperature 97.2 F L 98.0 F Temperature Source Temporal Temporal Pulse Rate 87 88 Respiratory Rate 18 16 Respiratory Effort Respiratory Pattern Blood Pressure 153/79 H 169/111 H Blood Pressure Mean 103 130 Pulse Ox 100 100 100 Oxygen Delivery Method Room Air Room Air Room Air 11/04/22 09:37 11/04/22 11:35 Temperature Temperature Source Pulse Rate 16 L Respiratory Rate 68 H Respiratory Effort Normal Non-Labored Respiratory Pattern Normal Blood Pressure 177/104 H Blood Pressure Mean 128 Pulse Ox 100 Oxygen Delivery Method Positive well nourished and well developed; Negative for obese, cachectic, co ntractures or unkempt General Appearance ED: well developed and NAD; Negative for unkempt, cachectic, contractures or pallor Nutritional Appearance: Negative for cachectic or obese HEENT Reports moist mucous membranes; Denies dry mucous membranes normocephalic and atraumatic; Negative for trauma or tenderness Mouth ED: No dry mucous membranes Mouth: No dry mucous membranes Eyes PERRL and EOMs intact bilaterally General Eye ED: Negative for pale conjunctiva or scleral icterus Neck no lymphadenopathy, supple and no JVD General: Negative for tenderness Chest Wall inspection of chest normal and palpation of chest normal Chest: Negative for tenderness Resp normal respiratory effort and clear to auscultation bilaterally Effort and Inspection: Negative for respiratory distress Auscultation: Negative for rales, rhonchi or wheezes Cardio regular rate, regular rhythm, S1 normal heart sound, S2 normal heart sound and no murmurs Peripheral Pulses: pulses 2+ throughout GI normal to inspection, nondistended, normoactive bowel sounds, soft to palpation, non-tender, non-distended and no masses Back/Spine no CVA tenderness and no thoracic nor lumbar tenderness General Back: Negative for CVA tenderness Cervical Spine: Negative for cervical spine tenderness Extremity normal to inspection General Extremety ED: Negative for edema or pulses abnormal General Extremity: Negative for edema or pulses abnormal Neuro oriented x3 and CN's II-XII intact bilaterally Sensorium / Orientation: awake, alert, oriented to person, oriented to place and oriented to time; Negative for confused, lethargic or stuporous Motor Exam: strength 5/5 throughout Psych mental status grossly normal Appearance: Negative for unkempt Attitude: No agitated Mood & Affect: Negative for depressed, anxious or tearful Skin no rashes or lesions noted and no wounds General Skin Exam: Negative for jaundice or pallor Rashes: No rashes noted Trauma: Negative for abrasion or laceration Heart Score History: Highly Suspicious ECG: Normal Age: >45 - <65 years Risk Factors: >/= 3 Risk Factors or History of CAD Troponin: </= Normal Limit Score: 5 MDM MDM MDM Narrative Medical decision making narrative: 57-year-old smoker with a cardiac history with an WA about 2 years ago. Has a cardiac stent. She also has COPD. She deftly has exertional dyspnea which is getting worse and chest pain. She will undergo cardiac work-up most likely will need to be admitted for further evaluation of chest pain. Repeat exam patient doing well at 11:15 AM exam unchanged. She and I discussed her story and is willing to be admitted for further cardiac testing. I have the hospitalist on page. Discussed with hospitalist. Also with cardiology on-call. They are comfortable with patient being discharged home. Or admitted for cardiac catheterization. She had a negative stress test in the recent past. Patient wants to do this as an outpatient. Second troponin is being obtained once that returns and is normal she will be discharged home to follow-up with Dr. Tc Lopez's office to be set up for an elective cardiac catheterization hopefully either this week or the following week. Patient knows return if worse. Lab Data Attestation: I reviewed the patient's lab results. Lab results narrative: CBC White count 5. H&H 14 and 45. Electrolytes unremarkable gap at 3 normal BUN/creatinine. Normal glucose. Troponin 6. Labs: Laboratory Results - last 24 hr 11/04/22 11/04/22 09:35 09:35 WBC 5.8 RBC 5.07 Hgb 14.5 Hct 45.5 MCV 89.7 MCH 28.6 MCHC 31.9 L RDW Std Deviation 43.1 RDW Coeff of Dona 13.2 Plt Count 270 MPV 10.9 Immature Gran % (Auto) 0.200 Neut % (Auto) 36.0 L Lymph % (Auto) 53.4 H [place] % (Auto) 6.6 Eos % (Auto) 2.8 Baso % (Auto) 1.0 Absolute Neuts (auto) 2.1 Absolute Lymphs (auto) 3.07 Nucleated RBC % 0 Sodium 140 Potassium 3.6 Chloride 108 H Carbon Dioxide 29.0 Anion Gap 3 L BUN 10 Creatinine 0.77 Estim Creat Clear Calc 61.56 Est GFR (MDRD) Af Amer 100 Est GFR (MDRD) Non-Af 83 BUN/Creatinine Ratio 13.0 Glucose 91 Calcium 10.0 Troponin I High Sens 6 Radiography Chest X-Ray - ED: 1 View, Read by ED Physician, Read by Radiologist, Heart, Lungs, Mediastinum, Bony Structures, No Acute Disease and Chronic Changes Diagnostic Testing: Clinical Impression(s) from Imaging Studies Chest X-Ray 11/04/22 09:53 IMPRESSION: No acute cardiopulmonary process identified. Electronically Signed: Marleni Perez MD at 10:02 EST Reading Location ID and State: [facility] Tel , Service support , Chest x-ray, portable, single view, interpreted by myself and radiologist shows no acute process. Chronic changes consistent with COPD. Rhythm Strip Rhythm Strip: Sinus Rhythm Rate: 86 Ectopy: None EKG Initial EKG: Attestation: I personally reviewed and interpreted this EKG as follows: Interpretation: Sinus Rhythm and No Acute Injury Pattern Comments: Normal sinus rhythm rate 86 no acute signs of WA or ischemia. Prior EKG tracings: available for review Prior: Unchanged Discharge Plan Triage Chief Complaint: Chest Pain ED Provider: Yonas Guzman Dx/Rx/DC Orders Clinical Impression: Chest pain, History of coronary artery stent placement, History of WA (myocardial infarction), History of COPD Instructions: ED Chest Pain, Uncertain Cause Prescriptions: No Action aspirin [Adult Low Dose Aspirin] 81 mg tablet,delayed release (DR/EC) 81 mg PO QODAY Rx Instructions: 81 mg PO; 3x week fluoxetine 10 mg capsule 10 mg PO DAILY doxazosin [Cardura] 1 mg tablet 1 mg PO DAILY Qty: 30 3RF lamotrigine 150 mg tablet 100 mg PO DAILY Label Comments: Take 0.5 tablets by mouth once daily. Breztri Aerosphere 160-9-4.8 mcg/actuation HFA aerosol inhaler 2 inh inhalation BID Qty: 10.7 11RF albuterol sulfate [Ventolin HFA] 90 mcg/actuation HFA aerosol inhaler 2 inh inhalation Q6H PRN (Reason: shortness of breath or wheezing) Qty: 8.5 11RF lorazepam [Ativan] 0.5 mg Tablet 0.5 mg PO BID PRN (Reason: Anxiety) fluticasone propionate [Flonase Allergy Relief] 50 mcg/actuation spray,suspension 2 spray intranasal DAILY PRN (Reason: Allergy Symptoms) Rx Instructions: administer into each nostril naproxen 500 mg tablet 500 mg PO BID Qty: 14 0RF clonidine HCl 0.2 mg tablet 0.2 mg PO BID PRN (Reason: SBP > 175) Qty: 10 0RF (DME) spacer See Rx Instructions .ROUTE .MEDSUPPLY Qty: 1 0RF Rx Instructions: As directed esomeprazole magnesium [Nexium 24HR] 20 mg capsule,delayed release(DR/EC) 20 mg PO DAILY PRN (Reason: Heartburn) potassium chloride 20 mEq tablet extended release 20 meq PO .QOD Qty: 30 6RF ezetimibe [Zetia] 10 mg tablet 10 mg PO DAILY Qty: 30 6RF Primary Care Provider: Ellis Crandall Referrals: Tc Lopez MD [Med Staff - Active Staff] - As soon as possible Ellis Crandall MD [Primary Care Provider] - Activity Restrictions/Additional Instructions: Nothing exertional till seen in follow-up. Call and follow-up with Dr. Lopez's for his office tomorrow. Tell them you are in the emergency department. It was discussed that you need an elective outpatient cardiac catheterization and hopefully they can get you on the schedule either this week or next. Return if feeling worse. Disposition Disposition: Home, Self Care
[2022-11-04 09:47] LABS: Absolute Lymphocyte Count 3.07 X10^3/uL (0.83-4.51); Absolute Neutrophil Count 2.1 X10^3/uL (2.0-7.7); Basophil# 0.06 X10^3/uL; Eosinophil# 0.16 X10^3/uL; Eosinophils% 2.8 % (0-5); Hematocrit 45.5 % (37-47); Hemoglobin 14.5 g/dL (12.0-15.0); Lymphocyte # 3.07 X10^3/ul (0.83-4.51); Lymphocyte % 53.4 % (19-41); Mean Corp Hgb Conc 31.9 g/dL (32-36); Mean Corpuscular Hgb 28.6 pg (27.0-32.0); Mean Corpuscular Volume 89.7 fL (81-99); Mean Platelet Vol. 10.9 fl (6.2-12.0); Monocyte# 0.38 X10^3/uL; Monocyte% 6.6 % (0-10); NRBC Flagged by Analyzer 0 % (0-5); Neutrophil # 2.07 X10^3/uL (2.7-7.7); Platelet Count 270 K/mm3 (150-450); RBC Distribution Width CV 13.2 % (11.6-14.6); RBC Distribution Width SD 43.1 fl (35.1-43.9); Red Blood Count 5.07 M/mm3 (4.2-5.4); White Blood Count 5.8 K/mm3 (4.4-11.0)
--- NOTE | 2022-11-04 09:53 | RAD_ITS ---
HISTORY: chest pain. TECHNIQUE: XR Chest 1 View. COMPARISON: 07/27/2022. FINDINGS: CARDIOMEDIASTINAL BORDERS: Cardiac silhouette within normal limits in size. Mediastinal contour unremarkable. LUNGS: Radiographically clear. Chronic upper lobe lucency suggesting COPD. PLEURA: No pleural effusion or pneumothorax seen. OSSEOUS STRUCTURES: Unremarkable. RAD/Chest 1 View (Portable) IMPRESSION: No acute cardiopulmonary process identified. Electronically Signed: Marleni Perez MD at 10:02 EST ,
[2022-11-04 09:55] LABS: Anion Gap 3 (5-15); BUN 10 mg/dL (7-18); Chloride 108 mmol/L (98-107); Creatinine, Serum 0.77 mg/dL (0.55-1.02); EST Glomerular Filtration Rate 83 mL/min (>60); Est Glom Filt Rate - Afr Amer 100 mL/min (>60); Estimated Creatinine Clearance 61.56 ml/min; Glucose 91 mg/dL (74-106); Potassium 3.6 mmol/L (3.5-5.1); Sodium Level 140 mmol/L (136-145); Troponin-I HS (w/2H Reflex) 6 pg/mL (3.0-54.0)
[2022-11-04 11:35] VITALS: BP 177/104; PULSE 16; RESP 68; O2SAT 100
[2022-11-04 11:35] LABS: Reflex Troponin-HS? (from REC) Y
[2022-11-04 12:17] LABS: Troponin-I HS 5 pg/mL (3.0-54.0)
[2022-11-04 12:30] VITALS: BP 157/95; PULSE 66; RESP 18; O2SAT 97
== END 2022-11-04 12:44 | disposition home or self-care (01) ==
PROVIDERS: Emergency Provider Emergency Medicine; PCP Family Medicine; Visit Provider Emergency Medicine
DX: R07.9 Chest pain, unspecified (principal); J44.9 Chronic obstructive pulmonary disease, unspecified; I10 Essential (primary) hypertension; F17.200 Nicotine dependence, unspecified, uncomplicated; I25.2 Old myocardial infarction; I25.10 Atherosclerotic heart disease of native coronary artery without angina pectoris; I25.5 Ischemic cardiomyopathy; Z95.5 Presence of coronary angioplasty implant and graft
CPT/HCPCS: 71045; 80048; 84484; 85025; 93005; 99284; A4216

== ENCOUNTER → 2022-11-08 | Outpatient (CLI) | payer MEDICAID, SELFPAY ==
--- NOTE | 2022-11-08 12:57 | PFT ---
INTRODUCTION: The patient is a 57-year-old female that presents for pulmonary function studies secondary to a diagnosis of COPD. Respiratory therapy reported good patient effort. Bronchodilators were used during testing. INTERPRETATION: Forced expiration spirometry demonstrates the presence of a mild large airways obstructive ventilatory defect. There was a significant response to aerosolized bronchodilators noted. Spirograms are of good quality but do not plateau indicating slow emptying of the lungs. Body plethysmography was performed and revealed an elevated TLC and RV, indicative of underlying hyperinflation and air trapping. Diffusing capacity by single breath CO was within normal limits. IMPRESSION: Partially reversible mild large airways obstructive ventilatory defect with associated hyperinflation and air trapping.
== END | disposition home or self-care (01) ==
LOC: PSN 09:28
PROVIDERS: PCP Family Medicine; Visit Provider Nurse Practitioner Acute Care
DX: J44.9 Chronic obstructive pulmonary disease, unspecified (principal)
CPT/HCPCS: 94060; 94726; 94729

== ENCOUNTER → 2022-11-15 | Outpatient (CLI) | payer MEDICAID, SELFPAY ==
[2022-11-15 12:59] VITALS: PULSE 106; PULSE 107; PULSE 108; PULSE 92; PULSE 96; O2SAT 95; O2SAT 96; O2SAT 98
--- NOTE | 2022-11-15 14:33 | PCM.PSN.6M ---
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 Assistive device used: None Pre-test Oxygen Delivery Method Room Air Pulse Ox (%) 98 Pulse Rate (60-100 beats/min) 96 Dyspnea Lynn Scale (0-10) 0.5 Exertion Lynn Scale (6-20) 6 1st minute Oxygen Delivery Method Room Air Pulse Ox (%) 95 Pulse Rate (60-100 beats/min) 106 H 2nd minute Oxygen Delivery Method Room Air Pulse Ox (%) 95 Pulse Rate (60-100 beats/min) 106 H 3rd minute Oxygen Delivery Method Room Air Pulse Ox (%) 95 Pulse Rate (60-100 beats/min) 106 H 4th minute Oxygen Delivery Method Room Air Pulse Ox (%) 95 Pulse Rate (60-100 beats/min) 107 H 5th minute Oxygen Delivery Method Room Air Pulse Ox (%) 96 Pulse Rate (60-100 beats/min) 107 H 6th minute Oxygen Delivery Method Room Air Pulse Ox (%) 96 Pulse Rate (60-100 beats/min) 108 H Dyspnea Lynn Scale (0-10) 3 Exertion Lynn Scale (6-20) 13 Post-test Oxygen Delivery Method Room Air Pulse Ox (%) 98 Pulse Rate (60-100 beats/min) 92 Full Laps Walked 18 Partial Lap, Number of Tiles Walked 10 Total Distance Walked (ft) 1072 Interpretation Interpretation: The patient was able to ambulate 1072 feet over the course of 6 minutes on room air with no assistive devices or breaks. The patient experienced no significant desaturation, but did have mild tachycardia as high as 108 bpm. These findings are consistent with deconditioning. Recommendations Recommendations: No supplemental oxygen is indicated at this time.
== END | disposition home or self-care (01) ==
LOC: PSN 12:43
PROVIDERS: PCP Family Medicine; Referring Provider Nurse Practitioner Acute Care; Visit Provider Nurse Practitioner Acute Care
DX: J44.9 Chronic obstructive pulmonary disease, unspecified (principal)
CPT/HCPCS: 94618

== ENCOUNTER → 2023-01-14 | Outpatient (CLI) | payer MEDICAID, SELFPAY | END | disposition home or self-care (01) | LOC: SL 20:08 | PROVIDERS: PCP Family Medicine; Visit Provider Family Medicine | DX: G47.10 Hypersomnia, unspecified (principal); I25.118 Atherosclerotic heart disease of native coronary artery with other forms of angina pectoris; R06.83 Snoring; I51.81 Takotsubo syndrome | CPT/HCPCS: 95810 ==

== ENCOUNTER 2023-02-26 14:37 | Emergency (ER) | payer MEDICAID, SELFPAY ==
[2023-02-26] VITALS (7 sets, daily range): BP systolic 123–160; BP diastolic 76–97; PULSE 72–93; RESP 12–19; TEMP 36.4–36.6; O2SAT 97–99; BMI 25.7
--- NOTE | 2023-02-26 15:21 | EDS_ITS ---
HPI History of Present Illness Chief Complaint: Chest Pain Narrative Narrative: 57-year-old female presenting with chest pain. She states that she has chronic chest pain but today is radiated to the right side of her chest and then to the left side of her chest. No lightheadedness, nausea, vomiting, shortness of breath. Patient states this started when she was cleaning up the yard. She states she has a history of [place] and has cardiac stents. 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 Lopez. [facility] Medical History Abdominal pain Adverse drug reaction Anxiety disorder Asthma-COPD overlap syndrome Atherosclerotic heart disease of redding coronary artery without angina pectoris Back pain Barretts esophagus Bipolar affective disorder Borderline personality disorder Chest pain of uncertain etiology Chest pain, non-cardiac Chronic constipation Chronic left-sided thoracic back pain COPD (chronic obstructive pulmonary disease) Depression Difficulty swallowing Eloped from emergency department Essential (primary) hypertension Former smoker Gastric reflux GERD (gastroesophageal reflux disease) Headache History of echocardiogram History of Holter monitoring History of non-ST elevation myocardial infarction (NSTEMI) (08/10/21) History of ST elevation myocardial infarction (STEMI) (12/18/20) Intermittent palpitations Irritable bowel syndrome with diarrhea Ischemic cardiomyopathy Leg cramps Myocardial infarct Nicotine dependence 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) Post-menopausal Shortness of breath Shortness of breath on exertion Syncope Takotsubo cardiomyopathy (08/10/21) Ulcerative colitis Wears glasses Home Medications lorazepam 0.5 mg tablet (Ativan) 0.5 mg PO BID PRN Anxiety 06/19/21 [History Last Taken 1 Week Ago ~08/03/21] aspirin 81 mg tablet,delayed release (Adult Low Dose Aspirin) 81 mg PO QODAY HEALTH MAINTENANCE 07/13/21 [History Last Taken 08/07/21] fluticasone propionate 50 mcg/actuation nasal spray,suspension (Flonase Allergy Relief) 2 spray intranasal DAILY PRN Allergy Symptoms 10/29/21 [History Last Taken Unknown] fluoxetine 10 mg capsule 10 mg PO DAILY 12/14/21 [History Last Taken Unknown] lamotrigine 150 mg tablet 100 mg PO DAILY 05/11/22 [History Last Taken Unknown] spacer #1 ea 05/23/22 [Rx Last Taken Unknown] potassium chloride 20 mEq tablet,extended release 20 meq PO .QOD #30 tabs 06/01/22 [Rx Last Taken Unknown] naproxen 500 mg tablet 500 mg PO BID #14 tabs 07/01/22 [Rx Last Taken Unknown] clonidine HCl 0.2 mg tablet 0.2 mg PO BID PRN SBP > 175 #10 tabs 07/27/22 [Rx Last Taken Unknown] albuterol sulfate 90 mcg/actuation aerosol inhaler (Ventolin HFA) 2 inh inhalation Q6H PRN shortness of breath or wheezing #8.5 grams 09/11/22 [Rx Last Taken Unknown] budesonide 160 mcg-glycopyr 9 mcg-formot 4.8 mcg/actuation HFA inhaler (Breztri Aerosphere) 2 inh inhalation BID #10.7 grams 12/04/22 [Rx Last Taken Unknown] doxazosin 1 mg tablet (Cardura) 1 mg PO DAILY #90 tabs 12/04/22 [Rx Last Taken Unknown] ezetimibe 10 mg tablet (Zetia) 10 mg PO DAILY #90 tabs 12/04/22 [Rx Last Taken Unknown] esomeprazole magnesium 20 mg capsule,delayed release (Nexium 24HR) 20 mg PO DAILY Heartburn 02/22/23 [History Last Taken Unknown] ranolazine 500 mg tablet,extended release,12 hr 500 mg PO BID #60 tabs 02/22/23 [Rx Last Taken Unknown] Allergy/AdvReac Type Severity Reaction Status Date / Time morphine Allergy Hives Verified 02/26/23 14:38 amlodipine AdvReac Intermediate chest Verified 02/26/23 14:38 pain and cannot breathe carvedilol [From Coreg] AdvReac Intermediate throat Verified 02/26/23 14:38 closing up and chest pressure omeprazole AdvReac Intermediate Palpiations Verified 02/26/23 14:38 (she is ok with Nexium) citalopram [From Celexa] AdvReac NAUSEATED Verified 02/26/23 14:38 AND IRRITABLE lisinopril AdvReac SOB, chest Verified 02/26/23 14:38 tightness,throat closing venlafaxine [From Effexor] AdvReac DIDN'T Verified 02/26/23 14:38 WORK Family History Father CAD (coronary artery disease) Myocardial infarction Surgical History H/O section History of cardiac catheterization (08/11/21) History of coronary artery stent placement (12/18/20) History of esophagogastroduodenoscopy (EGD) History of left heart catheterization (05/17/21) Social History household members: none Smoking Status: Current some day smoker tobacco type: cigarettes how long ago did patient quit smokin days ago alcohol intake: never substance use type: does not use caffeine: Yes Type: coffee Number of servings: 2 ROS ROS ED Review of Systems ROS Unobtainable: Denies due to encephalopathy Constitutional Constitutional ED: Denies chills, fever(s) or sweats Eyes Eyes: Denies blurry vision or change in vision ENT ENT ED: Denies ear pain or sore throat Cardiovascular Cardiovascular: Reports chest pain; Denies palpitations or racing heartbeat Respiratory/Chest Respiratory/Chest: Denies cough, dyspnea or sputum Gastrointestinal Gastrointestinal: Denies abdominal pain, constipation, diarrhea, nausea or vomiting Genitourinary Genitourinary ED: Denies dysuria, hematuria or urinary frequency Musculoskeletal Musculoskeletal: Denies arthralgias, myalgias or neck pain Integumentary Denies abscess, Abrasions or rash Neurologic Neurologic: Denies headache(s), paresthesias or weakness Psychiatric Psychiatric: Denies anxiety, depression, suicidal ideation or suicidal thoughts Endocrine Endocrinology: Denies polydipsia or polyuria EXAM Physical Exam Const Vital Signs: 02/26/23 14:38 02/26/23 15:50 02/26/23 15:37 Temperature 97.5 F L Temperature Source Temporal Pulse Rate 93 72 Respiratory Rate 18 19 H Respiratory Effort Normal Non-Labored Respiratory Pattern Normal Blood Pressure 153/97 H 160/97 H Blood Pressure Mean 115 118 Pulse Ox 98 99 Oxygen Delivery Method Room Air Room Air 02/26/23 15:18 02/26/23 16:00 02/26/23 17:00 Temperature Temperature Source Pulse Rate 74 72 Respiratory Rate 14 12 Respiratory Effort Respiratory Pattern Blood Pressure 123/78 H 159/87 H Blood Pressure Mean 93 111 Pulse Ox 99 99 97 Oxygen Delivery Method Room Air Room Air Room Air 02/26/23 18:00 02/26/23 18:45 Temperature 98 F Temperature Source Pulse Rate 74 78 Respiratory Rate 14 16 Respiratory Effort Respiratory Pattern Blood Pressure 138/82 H 134/76 H Blood Pressure Mean 100 Pulse Ox 98 98 Oxygen Delivery Method Room Air Positive well nourished General Appearance ED: NAD HEENT Reports moist mucous membranes normocephalic Eyes PERRL and EOMs intact bilaterally Resp Effort and Inspection: Negative for respiratory distress Auscultation: Negative for rales, rhonchi or wheezes Cardio regular rate and regular rhythm GI normal to inspection, nondistended, normoactive bowel sounds Neuro oriented x3 and CN's II-XII intact bilaterally Sensorium / Orientation: awake and alert Skin no rashes or lesions noted Heart Score History: Slightly/Non-Suspicious ECG: Normal Age: >45 - <65 years Risk Factors: >/= 3 Risk Factors or History of CAD Troponin: </= Normal Limit Score: 3 MDM MDM MDM Narrative Medical decision making narrative: 57-year-old female history of CAD, cardiac stents presenting with chest pain. She states it is a chronic issue but worse today while she was cleaning up her yard. She states it was on the right side of her chest and the left side of her chest. Differential includes but is not limited to ACS, pneumonia, pneumothorax, muscle strain, costochondritis. PE was considered but unlikely patient is PERC negative. CBC to assess white blood cell count, hemoglobin, platelets, differential. BMP to assess renal function, electrolytes, glucose, anion gap. High-sensitivity troponin, chest x-ray, EKG to assess for cardiac source. CBC within normal limits. BMP shows normal renal function electrolytes. High-sensitivity troponin is 5. Delta troponin is 7. No significant interval change. EKG on my interpretation shows normal sinus rhythm with a ventricular rate of 85 bpm without sign of ischemic change. Chest x-ray on my interpretation shows no acute cardiopulmonary process. The radiologist interprets this and agrees. At this point with a negative work-up I feel she can be stable to be discharged home. She is amenable to this. Turn precautions discussed. Impression: 1. chest pain Lab Data Labs: Laboratory Results - last 24 hr 02/26/23 02/26/23 02/26/23 15:44 15:44 18:15 WBC 5.0 RBC 4.95 Hgb 14.2 Hct 42.9 MCV 86.7 MCH 28.7 MCHC 33.1 RDW Std Deviation 42.2 RDW Coeff of Dona 13.3 Plt Count 298 MPV 10.8 Immature Gran % (Auto) 0.200 Neut % (Auto) 47.3 Lymph % (Auto) 42.7 H [place] % (Auto) 5.4 Eos % (Auto) 3.0 Baso % (Auto) 1.4 H Absolute Neuts (auto) 2.3 Absolute Lymphs (auto) 2.12 Nucleated RBC % 0 Sodium 136 Potassium 3.8 Chloride 106 Carbon Dioxide 25.0 Anion Gap 5 BUN 12 Creatinine 0.77 Estim Creat Clear Calc 64.52 Est GFR (MDRD) Af Amer 99 Est GFR (MDRD) Non-Af 82 BUN/Creatinine Ratio 15.5 Glucose 85 Calcium 9.9 Troponin I High Sens 5 7 Radiography Diagnostic Testing: Clinical Impression(s) from Imaging Studies Chest X-Ray 02/26/23 15:33 IMPRESSION: No evidence of acute cardiopulmonary process. Electronically Signed: Wili Machuca DO at 16:26 EDT , Discharge Plan Triage Chief Complaint: Chest Pain Other Complaint: Shortness of Breath ED Provider: Theodore Hines Dx/Rx/DC Orders Instructions: ED Chest Pain, Noncardiac Prescriptions: No Action aspirin [Adult Low Dose Aspirin] 81 mg tablet,delayed release (DR/EC) 81 mg PO QODAY Rx Instructions: 81 mg PO; 3x week fluoxetine 10 mg capsule 10 mg PO DAILY lamotrigine 150 mg tablet 100 mg PO DAILY Label Comments: Take 0.5 tablets by mouth once daily. albuterol sulfate [Ventolin HFA] 90 mcg/actuation HFA aerosol inhaler 2 inh inhalation Q6H PRN (Reason: shortness of breath or wheezing) Qty: 8.5 11RF doxazosin [Cardura] 1 mg tablet 1 mg PO DAILY Qty: 90 3RF ezetimibe [Zetia] 10 mg tablet 10 mg PO DAILY Qty: 90 3RF Breztri Aerosphere 160-9-4.8 mcg/actuation HFA aerosol inhaler 2 inh inhalation BID Qty: 10.7 11RF lorazepam [Ativan] 0.5 mg Tablet 0.5 mg PO BID PRN (Reason: Anxiety) fluticasone propionate [Flonase Allergy Relief] 50 mcg/actuation spray,suspension 2 spray intranasal DAILY PRN (Reason: Allergy Symptoms) Rx Instructions: administer into each nostril naproxen 500 mg tablet 500 mg PO BID Qty: 14 0RF clonidine HCl 0.2 mg tablet 0.2 mg PO BID PRN (Reason: SBP > 175) Qty: 10 0RF (DME) spacer See Rx Instructions .ROUTE .MEDSUPPLY Qty: 1 0RF Rx Instructions: As directed potassium chloride 20 mEq tablet extended release 20 meq PO .QOD Qty: 30 6RF ranolazine 500 mg tablet extended release 12 hr 500 mg PO BID Qty: 60 11RF esomeprazole magnesium [Nexium 24HR] 20 mg capsule,delayed release(DR/EC) 20 mg PO DAILY Primary Care Provider: Ellis Crandall Referrals: Ellis Crandall MD [Primary Care Provider] - Disposition Disposition: Home, Self Care Discharge Date/Time: 02/26/23 18:56
--- NOTE | 2023-02-26 15:33 | RAD_ITS ---
STUDY: X-RAY CHEST REASON FOR EXAM: Female, 57 years old. chest pain TECHNIQUE: Single PA view of the chest. COMPARISON: 11/04/2022 FINDINGS: The lungs are clear and expanded. There is no demonstrated pleural abnormality. Normal size heart. Normal mediastinum and kirsten. Normal visualized pulmonary arteries. Normal visualized aortic arch and descending thoracic aorta. Normal visualized thoracic spine. Normal visualized ribs, clavicles, and shoulders. There is no demonstrated abnormality of the visualized soft tissue structures of the upper abdomen. RAD/Chest 1 View (Portable) IMPRESSION: No evidence of acute cardiopulmonary process. Electronically Signed: Wili Machuca DO at 16:26 EDT ,
[2023-02-26 16:10] LABS: Absolute Lymphocyte Count 2.12 X10^3/uL (0.83-4.51); Absolute Neutrophil Count 2.3 X10^3/uL (2.0-7.7); Basophil# 0.07 X10^3/uL; Basophil% 1.4 % (0-1); Eosinophil# 0.15 X10^3/uL; Hematocrit 42.9 % (37-47); Hemoglobin 14.2 g/dL (12.0-15.0); Lymphocyte # 2.12 X10^3/ul (0.83-4.51); Lymphocyte % 42.7 % (19-41); Mean Corp Hgb Conc 33.1 g/dL (32-36); Mean Corpuscular Hgb 28.7 pg (27.0-32.0); Mean Corpuscular Volume 86.7 fL (81-99); Mean Platelet Vol. 10.8 fl (6.2-12.0); Monocyte# 0.27 X10^3/uL; Monocyte% 5.4 % (0-10); NRBC Flagged by Analyzer 0 % (0-5); Neutrophil # 2.34 X10^3/uL (2.7-7.7); Neutrophil % 47.3 % (47-70); Platelet Count 298 K/mm3 (150-450); RBC Distribution Width CV 13.3 % (11.6-14.6); RBC Distribution Width SD 42.2 fl (35.1-43.9); Red Blood Count 4.95 M/mm3 (4.2-5.4)
[2023-02-26 16:34] LABS: Anion Gap 5 (5-15); BUN 12 mg/dL (7-18); BUN/Creat Ratio 15.5 RATIO (10-20); Calcium,Total 9.9 mg/dL (8.5-10.1); Chloride 106 mmol/L (98-107); Creatinine, Serum 0.77 mg/dL (0.55-1.02); EST Glomerular Filtration Rate 82 mL/min (>60); Est Glom Filt Rate - Afr Amer 99 mL/min (>60); Estimated Creatinine Clearance 64.52 ml/min; Glucose 85 mg/dL (74-106); Potassium 3.8 mmol/L (3.5-5.1); Sodium Level 136 mmol/L (136-145); Troponin-I HS (w/2H Reflex) 5 pg/mL (3.0-54.0)
[2023-02-26 18:05] LABS: Reflex Troponin-HS? (from REC) Y
[2023-02-26 18:40] LABS: Troponin-I HS 7 pg/mL (3.0-54.0)
== END 2023-02-26 18:56 | disposition home or self-care (01) ==
PROVIDERS: Emergency Provider Student in an Organized Health Care Education/Training Program; PCP Family Medicine; Visit Provider Student in an Organized Health Care Education/Training Program
DX: R07.9 Chest pain, unspecified (principal); J44.9 Chronic obstructive pulmonary disease, unspecified; I10 Essential (primary) hypertension; I25.5 Ischemic cardiomyopathy; Z95.5 Presence of coronary angioplasty implant and graft; F17.200 Nicotine dependence, unspecified, uncomplicated; I25.10 Atherosclerotic heart disease of native coronary artery without angina pectoris; R06.02 Shortness of breath
CPT/HCPCS: 71045; 80048; 84484; 85025; 93005; 99284; A4216

== ENCOUNTER → 2023-03-20 | Outpatient (CLI) | payer MEDICAID, SELFPAY ==
--- NOTE | 2023-03-20 09:45 | NM_ITS ---
CLINICAL: 57-year-old female with history of postprandial abdominal pain and nausea. RADIONUCLIDE HEPATOBILIARY SCINTIGRAPHY COMPARISON: None available FINDINGS: Following the intravenous administration of 5.6 mCi of 99m Tc Mebrofenin, hepatobiliary images reveal:. 1. Relatively prompt and homogeneous radiopharmaceutical concentration is noted by a normal sized liver. No parenchymal defects are identified. 2. Gallbladder activity is identified at 10 minutes post radiopharmaceutical administration. 3. Small intestinal tract is observed at 30 minutes following tracer injection. 4. Washout of the radiopharmaceutical by the hepatic parenchyma appears qualitatively normal. Cholecystokinin (0.02 ug/kg) was administered intravenously over a 30-minute period. The post CCK gallbladder ejection fraction calculated at 20 minutes following Cholecystokinin administration was noted to be 90.0 % (normal greater than 35%). During 30 minutes of post CCK imaging, there is scintigraphic evidence of refilling of the gallbladder. There is post cholecystokinin duodenal-gastric reflux. NM/Hepatobilliary Img w/Pharm Int IMPRESSION: 1. A gallbladder ejection fraction calculated to be greater than 35% following the administration of Cholecystokinin makes the probability of functional hepatobiliary disease (gallbladder dyskinesia) and/or organic hepatobiliary disease (chronic acalculous cholecystitis and/or cystic duct syndrome) to be low. (Amilcar Pittman et al, Journal of Nuclear Medicine 32:1695, 1991). 2. A normal gallbladder ejection fraction with refilling of the gallbladder following CCK administration may represent the presence of Sphincter of Oddi dysfunction. Correlation with Sphincter of Oddi manometry may be of benefit. (Dionne and Dionne, J Nucl Med 38:1824, 1997). 3. Duodenal-gastric reflux is defined as described above. Electronically Signed: Oscar Guzman, at 8:01 EDT ,
== END | disposition home or self-care (01) ==
LOC: NM 09:44
PROVIDERS: PCP Family Medicine; Referring Provider Nurse Practitioner Adult Health; Visit Provider Nurse Practitioner Adult Health
DX: R10.9 Unspecified abdominal pain (principal)
CPT/HCPCS: 78227; A9537; J2805

== ENCOUNTER → 2023-07-09 | Outpatient (CLI) | payer MEDICAID, SELFPAY ==
--- NOTE | 2023-07-09 07:49 | CT_ITS ---
INDICATION: smoker. 1PPD X 39 YEARS. COPD. HEART STENT EXAMINATION: - CT Low Dose CT Chest for Lung Cancer Screening A radiation dose optimization technique was used for this scan. COMPARISON: Chest CT 07/01/2022 and 03/12/2021. FINDINGS: Low dose Noncontrast serial CT axial images through the chest with coronal and sagittal reformatted series. MEDIASTINUM: Dense coronary artery atherosclerotic calcifications. Noncontrast mediastinum is otherwise unremarkable. LUNG PARENCHYMA: Severe diffuse emphysematous lung changes. Stable 3 mm lateral subpleural left upper lobe pulmonary nodule on axial image 129 of series 2. Stable 4 mm posterior medial right upper lobe subpleural pulmonary nodule on axial image 53. No acute pulmonary parenchymal abnormality. PLEURA: No pleural effusion. No pneumothorax. BONES: Osseous structures are unremarkable for age. UPPER ABDOMEN: Central right hepatic lobe likely hepatic cysts again noted. CT/Low Dose CT Lung Screening IMPRESSION: Pulmonary nodules as above. Lung-RADS CATEGORY 2: Benign Appearance Nodules. Annual screening with low dose CT in 12 months. Severe emphysematous lung changes. Electronically Signed: Jeff Lentz MD at 4:44 EDT ,
== END | disposition home or self-care (01) ==
LOC: CT 07:49
PROVIDERS: PCP Family Medicine; Referring Provider Nurse Practitioner Acute Care; Visit Provider Nurse Practitioner Acute Care
DX: Z12.2 Encounter for screening for malignant neoplasm of respiratory organs (principal); F17.210 Nicotine dependence, cigarettes, uncomplicated
CPT/HCPCS: 71271

== ENCOUNTER → 2023-07-24 | Outpatient (CLI) | payer MEDICAID, SELFPAY ==
--- NOTE | 2023-07-24 13:19 | PFT ---
INTRODUCTION: The patient is a 58-year-old female who presents for pulmonary function studies secondary to a diagnosis of COPD. Respiratory therapy reported good patient effort. Bronchodilators were used during testing. INTERPRETATION: Forced expiration spirometry demonstrates the presence of a mild large airways obstructive ventilatory defect. There was a significant response to aerosolized bronchodilators. Spirograms are of good quality but do not plateau indicating slow emptying of the lungs. Body plethysmography was performed and revealed evidence of hyperinflation and air trapping. Diffusing capacity by single breath CO is reduced at 67% of predicted. IMPRESSION: Partially reversible mild large airways obstructive ventilatory defect with associated hyperinflation, air trapping and symmetric reduction in diffusing capacity.
== END | disposition home or self-care (01) ==
LOC: PSN 09:10
PROVIDERS: PCP Family Medicine; Referring Provider Nurse Practitioner Acute Care; Visit Provider Nurse Practitioner Acute Care
DX: J44.9 Chronic obstructive pulmonary disease, unspecified (principal)
CPT/HCPCS: 94060; 94726; 94729

== ENCOUNTER → 2023-07-26 | Outpatient (CLI) | payer MEDICAID, SELFPAY ==
[2023-07-26 12:38] VITALS: PULSE 100; PULSE 105; PULSE 112; PULSE 115; PULSE 118; PULSE 90; PULSE 94; PULSE 97; O2SAT 93; O2SAT 94; O2SAT 95; O2SAT 96
--- NOTE | 2023-07-27 06:05 | PCM.PSN.6M ---
PSN 6 Minute Walk Test 6 Minute Walk Test 6 Minute Walk Test: 6 Minute Walk Test PSN:6-Minute Walk Test Start: 07/26/23 12:38 Freq: Status: Active Protocol: [id number].6MINW Document 07/26/23 12:38 YVETTE (Rec: 07/26/23 12:40 YVETTE [id number]) 6 Minute Walk Test Date Performed 07/26/23 Time Performed 12:30 Height 5 ft 2 in Weight: 140 lb Weight in Pounds 140.[address]: Salena Kelly [employer] Assistive device used: None Pre-test Oxygen Delivery Method Room Air Pulse Ox 95 Pulse Rate (60-100) 94 Dyspnea Lynn Scale (0-10) 0 Exertion Lynn Scale (6-20) 6 1st minute Oxygen Delivery Method Room Air Pulse Ox 94 Pulse Rate (60-100) 97 2nd minute Oxygen Delivery Method Room Air Pulse Ox 94 Pulse Rate (60-100) 100 3rd minute Oxygen Delivery Method Room Air Pulse Ox 93 Pulse Rate (60-100) 105 H 4th minute Oxygen Delivery Method Room Air Pulse Ox 95 Pulse Rate (60-100) 118 H 5th minute Oxygen Delivery Method Room Air Pulse Ox 95 Pulse Rate (60-100) 115 H 6th minute Oxygen Delivery Method Room Air Pulse Ox 95 Pulse Rate (60-100) 112 H Dyspnea Lynn Scale (0-10) 3 Exertion Lynn Scale (6-20) 12 Post-test Oxygen Delivery Method Room Air Pulse Ox 96 Pulse Rate (60-100) 90 Full Laps Walked 18 Partial Lap, Number of Tiles Walked 42 Total Distance Walked (ft) 1104 Interpretation Interpretation: The patient ambulated 1104 feet over the course of 6 minutes beginning on room air without assistive devices. Pretesting oxygen saturation was noted to be 95% on room air. With ambulation, the kelvin oxygen saturation was 93%. There was no significant exertional oxygen desaturation. Recommendations Recommendations: There is no indication for the use of supplemental oxygen at this time.
== END | disposition home or self-care (01) ==
LOC: PSN 12:20
PROVIDERS: PCP Family Medicine; Referring Provider Nurse Practitioner Acute Care; Visit Provider Nurse Practitioner Acute Care
DX: J44.9 Chronic obstructive pulmonary disease, unspecified (principal)
CPT/HCPCS: 94618

== ENCOUNTER 2023-09-10 14:25 | Day surgery (SDC) | payer MEDICAID, SELFPAY ==
--- NOTE | 2023-09-10 | ESO_PTH ---
PATIENT: SJ MOHAN LOC: EN U#:[id number] AGE/SX: 58/F ROOM: RE09/10/[address]: Dr. Aime Magaña DO : 1965 BED: DIS: 09/10/2023 SPEC #: [id number] RECD: 09/10/23 18:14 STATUS: CARSON MARIE #: [id number] [place]: 09/10/23 00:[address]: Aime Magaña DEPT: SURGICAL PATHOLOGY RECD BY: Miles Cleary ENTERED: 09/11/23 09:20 SP TYPE: CHACE PEREZ DR: Dr. Ellis Crandall MD Tissues: Esophagus, NOS Procedures: Special Stain Group II Surgery Specimen Level IV Alcian Blue/PAS (control) HEADER OPERATION: EGD PRE-OP DIAGNOSIS: Abdominal pain, Mcdermott's esophagus TISSUE SUBMITTED: Distal esophagus MICROSCOPIC DIAGNOSIS Distal esophagus, biopsy: Gastroesophageal junctional mucosa with mild chronic inflammation. No evidence of goblet cell metaplasia. See comment. AM:isaias 09/12/2023 COMMENT Alcian blue/PAS stain with matched control supports the above diagnosis. MICROSCOPIC DESCRIPTION Slides are reviewed. GROSS DESCRIPTION Received in fixative is one container labeled with the patient's name and designated distal esophagus. The specimen consists of multiple irregular fragments of light rm soft tissue that in aggregate measure 1.0 x 0.4 x 0.1 cm. The specimen is totally submitted in one cassette. / SJ:isaias 09/11/2023 TC:3 CPT: 34431, 35091
[2023-09-10 14:46] VITALS: BP 148/91; PULSE 74; RESP 16; TEMP 36.2; O2SAT 100; BMI 25.6
[2023-09-10] MEDS: Lactated Ringers 1,000 ML 15 ML IV (14:48)
--- NOTE | 2023-09-10 15:30 | PCM.HP.BLA ---
History and Physical Date of Admission: 09/10/23 abdominal pain Details: SJ MOHAN, is a 57 F who presents to the office today for worsening postprandial epigastric pain that radiates through to the back. No relief with PPI, antacids, pancreatic enzymes. Mostly eats soup, baked potato. Gets nausea but no vomiting. No dysphagia. No diarrhea. Tends more to constipation, now taking magnesium pill to help. No melena or hematochezia. Pancreatic blood and stool tests were normal. No relief with samples of pancreatic enzymes. No gallstones on US, there is one polyp. Gastric emptying study normal Esophagram normal EGD 11/2021 Mcdermott's, will need repeat All her teeth have been pulled now ROS Const Constitutional: Positive for fatigue and weight change ENT ENT: No difficulty swallowing Gastro GI: Positive for abdominal pain, bloating, change in bowel habits, constipation, diarrhea, heartburn and nausea/dyspepsia; No belching, change in stool character, coffee ground emesis, cramping, difficulty swallowing, feeling full early, excessive flatus, incontinent of stools, Vomiting blood/hematemesis, Blood in stool, loose stools, Black,tarry stools, pain with swallowing, vomiting or other Musc Musculoskeletal: Positive for joint pain, back pain, muscle weakness and stiffness Skin Skin: No yellowing of the eye or itchy eyes Psych Psychiatric: No anxiety and No depression Endo Endocrine: Positive for fatigue and weight change Aller/Imm Allergy/Immunologic: No itchy eyes Chciho/Lymp Hematologic/Lymphatic: No easy bleeding or easy bruising Exam Const General: cooperative and uncomfortable Nutritional Appearance: average body habitus Orientation: alert, awake and oriented x3 Resp Effort & Inspection: normal respiratory effort GI Inspection: normal to inspection Palpation: soft, no hepatosplenomegaly, no masses and tender in the epigastrum Quality Reporting Tobacco Screening ([facility]) Smoking Status: Current some day smoker Assessment and Plan Assessment and Plan (1) Abdominal pain: Status: Chronic Plan: Post prandial epigastric pain HIDA scan to eval GB function, if abnl then refer to Gen Surg (2) Mcdermott's esophagus-she will undergo an EGD to evaluate distal esophagus for Mcdermott's esophagus. She was explained alternatives, risk, benefits including understanding bleeding, infection, sepsis, perforation, need for emergent and . She have an ASA of 3. I have examined the patient and the H&P has been reviewed. There are no clinical changes since date of exam.
[2023-09-10 15:50] VITALS: BP 139/79; BP 148/91; PULSE 84; RESP 16; TEMP 36.9; O2SAT 92
--- NOTE | 2023-09-10 15:53 | OP.EGD_ITS ---
Patient Name: Erica Pedroza Procedure Date: 09/10/2023 3:27 PM Date of : 1965 Age: 58 Procedure: Upper GI endoscopy Indications: Mcdermott's esophagus Providers: Aime Magaña DO Medicines: Monitored Anesthesia Care Patient Profile: This is a 58 year old female. Refer to note in patient chart for documentation of history and physical. Patient has symptoms of chronic heartburn. Complications: No immediate complications. Procedure: Pre-Anesthesia Assessment: - Prior to the procedure, a History and Physical was performed, and patient medications and allergies were reviewed. The patient is competent. The risks and benefits of the procedure and the sedation options and risks were discussed with the patient. All questions were answered and informed consent was obtained. Patient identification and proposed procedure were verified by the physician in the pre-procedure area. Mental Status Examination: alert and oriented. Airway Examination: normal oropharyngeal airway and neck mobility. Respiratory Examination: clear to auscultation. CV Examination: normal. Prophylactic Antibiotics: The patient does not require prophylactic antibiotics. Prior Anticoagulants: The patient has taken no anticoagulant or antiplatelet agents. After reviewing the risks and benefits, the patient was deemed in satisfactory condition to undergo the procedure. The anesthesia plan was to use monitored anesthesia care (MAC). Immediately prior to administration of medications, the patient was re-assessed for adequacy to receive sedatives. The heart rate, respiratory rate, oxygen saturations, blood pressure, adequacy of pulmonary ventilation, and response to care were monitored throughout the procedure. The physical status of the patient was re-assessed after the procedure. After obtaining informed consent, the endoscope was passed under direct vision. Throughout the procedure, the patient's blood pressure, pulse, and oxygen saturations were monitored continuously. The gastroscope was introduced through the mouth, and advanced to the second part of duodenum. The upper GI endoscopy was accomplished without difficulty. The patient tolerated the procedure well. Scope In: 3:34:30 PM Scope Out: 3:44:56 PM Total Procedure Duration Time 0 hours 10 minutes 26 seconds Findings: There were esophageal mucosal changes secondary to established long-segment Mcdermott's disease present in the lower third of the esophagus. The maximum longitudinal extent of these mucosal changes was 4 cm in length. Mucosa was biopsied with a cold forceps for histology in 4 quadrants at intervals of 1 cm in the lower third of the esophagus. One specimen bottle was sent to pathology. Verification of patient identification for the specimen was done. Estimated blood loss was minimal. A medium-sized hiatal hernia was present. Localized moderate inflammation characterized by congestion (edema) was found in the gastric antrum. No gross lesions were noted in the first portion of the duodenum. Impression: - Esophageal mucosal changes secondary to established long-segment Mcdermott's disease. Biopsied. - Medium-sized hiatal hernia. - Gastritis. - No gross lesions in the first portion of the duodenum. Recommendation: - Discharge patient to home. - Resume previous diet. - Continue present medications. - Await pathology results. - Repeat upper endoscopy in 1 year for surveillance. Procedure Code(s): --- Professional --- 68206, Esophagogastroduodenoscopy, flexible, transoral; with biopsy, single or multiple CPT copyright 2021 [employer]. All rights reserved. The codes documented in this report are preliminary and upon waterway traffic checker review may be revised to meet current compliance requirements. Aime Magaña DO 09/10/2023 3:53:01 PM This report has been signed electronically. Number of Addenda: 0 Note Initiated On: 09/10/2023 3:27 PM
--- NOTE | 2023-09-10 15:53 | OP.CCLET_ITS ---
09/10/2023 Ellis Crandall MD Re : Upper GI endoscopy procedure for Erica Pedroza Dear Dr. Crandall This procedure was performed on Sunday, September 10, 2023. My impressions and recommendations are as follows: Impressions : - Esophageal mucosal changes secondary to established long-segment Mcdermott's disease. Biopsied. - Medium-sized hiatal hernia. - Gastritis. - No gross lesions in the first portion of the duodenum. Recommendations : - Discharge patient to home. - Resume previous diet. - Continue present medications. - Await pathology results. - Repeat upper endoscopy in 1 year for surveillance. My findings are described in the full procedure note, which is enclosed. If I can be of further assistance, please feel free to contact me at . Sincerely, Aime Magaña, 09/10/2023 3:53:01 PM This report has been signed electronically.
[2023-09-10 15:55] VITALS: BP 148/91; BP 151/77; PULSE 82; RESP 16; O2SAT 94
[2023-09-10 16:00] VITALS: BP 148/91; BP 151/83; PULSE 73; RESP 16; O2SAT 98
[2023-09-10 16:05] VITALS: BP 140/84; BP 148/91; PULSE 72; RESP 16; TEMP 36.4; O2SAT 99
[2023-09-10 16:15] VITALS: BP 148/91
== END 2023-09-10 16:23 | disposition home or self-care (01) ==
LOC: EN 14:26
PROVIDERS: PCP Family Medicine; Referring Provider Family Medicine; Visit Provider Internal Medicine Gastroenterology
PROC: 0DJ08ZZ Inspection of Upper Intestinal Tract, Via Natural or Artificial Opening Endoscopic (ICD-10-PCS; CPT 43235; principal; 2023-09-10 15:25)
DX: K22.70 Barrett's esophagus without dysplasia (principal); R10.9 Unspecified abdominal pain; K44.9 Diaphragmatic hernia without obstruction or gangrene; F17.200 Nicotine dependence, unspecified, uncomplicated; K29.70 Gastritis, unspecified, without bleeding; G89.29 Other chronic pain
CPT/HCPCS: 43239; 88305; 88313; J7120; J2405

== ENCOUNTER 2023-09-11 22:25 | Emergency (ER) | payer MEDICAID, SELFPAY ==
[2023-09-11 22:27] VITALS: BP 181/113; PULSE 85; RESP 18; TEMP 36.4; O2SAT 100; BMI 26.1
--- NOTE | 2023-09-11 22:39 | EDS_ITS ---
HPI HPI - GI History of Present Illness Chief Complaint: Abd Pain Informant: patient Abdominal Pain/Flank Pain Onset: Today Context: Sudden Onset Timing: Continuous Quality: Burning Location: Epigastric Worsened by: Food Relieved by: Nothing Nausea/Vomiting/Emesis GI Symptom: Positive for Nausea; Negative for Vomiting Diarrhea/Melena/Hematochezia GI Symptom: Negative for Diarrhea, Melena or Hematochezia Associated Symptoms Associated Symptoms: Negative for Dysuria, Frequency or Hematuria Narrative Narrative: Patient presents with epigastric pain that began today. Patient states it is over her lower chest and epigastric area. Patient states she had endoscopy done yesterday which was negative. Patient states she was recently prescribed dicyclomine for her pain. Patient admits to some nausea that comes and goes. Patient denies any vomiting. Patient denies any diarrhea, melena, or hem atochezia. Patient states her pain is worse after eating. Patient states nothing seems to help with it. Patient describes her pain as burning. Patient states it has been constant today. 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 Back pain Barretts esophagus Bipolar affective disorder Borderline personality disorder Cardiology follow-up encounter Chest pain of uncertain etiology Chest pain, non-cardiac Chronic constipation Chronic left-sided thoracic back pain COPD (chronic obstructive pulmonary disease) Depression Difficulty swallowing Edentulous Eloped from emergency department Emphysema, unspecified Essential (primary) hypertension Former smoker Gastric reflux GERD (gastroesophageal reflux disease) Headache High cholesterol History of echocardiogram History of Holter monitoring History of non-ST elevation myocardial infarction (NSTEMI) (08/10/21) History of ST elevation myocardial infarction (STEMI) (12/18/20) History of stress test Intermittent palpitations Irritable bowel syndrome with diarrhea Ischemic cardiomyopathy Leg cramps Myocardial infarct Nicotine dependence 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) Post-menopausal Rheumatoid arthritis Shortness of breath Shortness of breath on exertion Smoker Takotsubo cardiomyopathy (08/10/21) Ulcerative colitis Wears glasses Home Medications aspirin 81 mg tablet,delayed release (Adult Low Dose Aspirin) 81 mg PO QODAY HEALTH MAINTENANCE 07/13/21 [History Last Taken 08/31/23] fluticasone propionate 50 mcg/actuation nasal spray,suspension (Flonase Allergy Relief) 2 spray intranasal DAILY PRN Allergy Symptoms 10/29/21 [History Last Taken Unknown] fluoxetine 10 mg capsule 10 mg PO DAILY 12/14/21 [History Last Taken Unknown] lamotrigine 150 mg tablet 100 mg PO DAILY 05/11/22 [History Last Taken Unknown] spacer #1 ea 05/23/22 [Rx Last Taken Unknown] potassium chloride 20 mEq tablet,extended release 20 meq PO .QOD #30 tabs 06/01/22 [Rx Last Taken Unknown] albuterol sulfate 90 mcg/actuation aerosol inhaler (Ventolin HFA) 2 inh inhalation Q6H PRN shortness of breath or wheezing #8.5 grams 09/11/22 [Rx Last Taken Unknown] budesonide 160 mcg-glycopyr 9 mcg-formot 4.8 mcg/actuation HFA inhaler (Breztri Aerosphere) 2 inh inhalation BID #10.7 grams 07/16/23 [Rx Last Taken Unknown] lorazepam 0.5 mg tablet 0.5 mg PO DAILY PRN anxiety 09/04/23 [History Last Taken Unknown] magnesium 200 mg tablet 200 mg PO .WEEKLY 09/04/23 [History Last Taken Unknown] ezetimibe 10 mg tablet (Zetia) 10 mg PO DAILY #90 tabs 09/05/23 [Rx Last Taken Unknown] dicyclomine 20 mg tablet 20 mg PO TID 5 days #15 tabs 09/11/23 [Rx Last Taken Unknown] Allergy/AdvReac Type Severity Reaction Status Date / Time morphine Allergy Hives Verified 09/11/23 22:26 amlodipine AdvReac Intermediate chest Verified 09/11/23 22:26 pain and cannot breathe carvedilol [From Coreg] AdvReac Intermediate throat Verified 09/11/23 22:26 closing up and chest pressure citalopram [From Celexa] AdvReac NAUSEATED Verified 09/11/23 22:26 AND IRRITABLE lisinopril AdvReac SOB, chest Verified 09/11/23 22:26 tightness,throat closing venlafaxine [From Effexor] AdvReac DIDN'T Verified 09/11/23 22:26 WORK Family History Father CAD (coronary artery disease) Myocardial infarction Surgical History H/O section History of cardiac catheterization (08/11/21) History of coronary artery stent placement (12/18/20) History of esophagogastroduodenoscopy (EGD) History of left heart catheterization (05/17/21) Social History household members: none Smoking Status: Former smoker quit date: 01/23/21 pack-years: 30 alcohol intake: never substance use type: does not use caffeine: Yes Type: coffee Number of servings: 2 ROS ROS ED Constitutional Constitutional ED: Denies chills or fever(s) Eyes Eyes: Denies blurry vision or change in vision ENT ENT ED: Denies rhinorrhea or sore throat Cardiovascular Cardiovascular: Reports chest pain and palpitations Respiratory/Chest Respiratory/Chest: Reports cough; Denies dyspnea Gastrointestinal Gastrointestinal: Reports abdominal pain and nausea; Denies diarrhea, melena or vomiting Genitourinary Genitourinary ED: Denies dysuria or hematuria Musculoskeletal Musculoskeletal: Reports back pain; Denies neck pain Integumentary Denies abscess or rash Neurologic Neurologic: Reports headache(s); Denies weakness Allergic/Immunologic Allergic/Immunologic ED: Denies mouth swelling or urticaria EXAM Physical Exam Const Vital Signs: 09/11/23 22:27 Temperature 97.5 F L Temperature Source Temporal Pulse Rate 85 Respiratory Rate 18 Blood Pressure 181/113 H Blood Pressure Mean 135 Pulse Ox 100 Oxygen Delivery Method Room Air Positive well nourished and well developed General Appearance ED: well developed and NAD HEENT Reports moist mucous membranes normocephalic and atraumatic Neck supple and no JVD Resp normal respiratory effort and clear to auscultation bilaterally Cardio regular rate and regular rhythm GI non-distended Palpation: soft and tender epigastric; Negative for guarding or rebound tenderness present Neuro CN's II-XII intact bilaterally, moves all extremities and no sensory deficits noted Sensorium / Orientation: alert Motor Exam: strength 5/5 throughout Psych mental status grossly normal MDM MDM MDM Narrative Medical decision making narrative: Differential diagnosis includes pancreatitis, peptic ulcer disease, gastritis, GERD, cholecystitis, cholelithiasis, pyelonephritis, and bowel perforation. CBC will be obtained to assess for leukocytosis and anemia. Comprehensive metabolic profile will be obtained to assess for hepatic function, renal function, and electrolyte abnormality. Lipase will be obtained to assess for pancreatitis. Urinalysis will be obtained to assess for urinary tract infection. CT scan of the abdomen pelvis will be obtained to assess for bowel obstruction and perforation. Lab Data Attestation: I reviewed the patient's lab results. Lab results narrative: CBC was reviewed and was within normal limits. Comprehensive metabolic profile was reviewed and was within normal limits. Lipase was reviewed and was normal at 39. Urinalysis was reviewed. There is no evidence of urinary tract infection or hematuria. Labs: Laboratory Results - last 24 hr 09/11/23 09/11/23 22:36 22:44 WBC 8.1 RBC 4.78 Hgb 13.8 Hct 42.4 MCV 88.7 MCH 28.9 MCHC 32.5 RDW Std Deviation 43.4 RDW Coeff of Dona 13.2 Plt Count 277 MPV 11.0 Immature Gran % (Auto) 0.200 Neut % (Auto) 55.5 Lymph % (Auto) 34.1 [place] % (Auto) 6.6 Eos % (Auto) 2.9 Baso % (Auto) 0.7 Absolute Neuts (auto) 4.5 Absolute Lymphs (auto) 2.75 Nucleated RBC % 0 Sodium 137 Potassium 3.4 L Chloride 104 Carbon Dioxide 27.0 Anion Gap 6 BUN 9 Creatinine 0.71 Estim Creat Clear Calc 69.14 Est GFR (MDRD) Af Amer 109 Est GFR (MDRD) Non-Af 90 BUN/Creatinine Ratio 12.7 Glucose 96 Calcium 9.5 Total Bilirubin 0.30 AST 14 L ALT 20 Alkaline Phosphatase 71 Total Protein 7.2 Albumin 3.6 Globulin 3.6 Albumin/Globulin Ratio 1.0 Lipase 39 Urine Color Straw Urine Clarity Clear Urine pH 7.0 Ur Specific [place] 1.005 Urine Protein Negative Urine Glucose (UA) Normal Urine Ketones Negative Urine Occult Blood 25 H Urine Nitrite Negative Urine Bilirubin Negative Urine Urobilinogen Normal Ur Leukocyte Esterase Negative Urine RBC 0 SEEN Urine WBC 0 SEEN Ur Squamous Epith Cells 0-5 SEEN Urine Bacteria 0 SEEN Urine Mucus 0 SEEN Radiography Diagnostic Testing: Clinical Impression(s) from Imaging Studies Abdomen/Pelvis CT 09/11/23 22:46 IMPRESSION: 1. Centrilobular emphysematous changes are present. 2. Distal esophageal wall thickening is nonspecific. No distinct distal esophageal injury. Note that the esophagus is not fully evaluated in the [id number]. 3. No evidence of free air or free fluid. No acute inflammatory changes in the abdomen and pelvis. 4. Colonic diverticulosis without evidence of acute diverticulitis. Electronically Signed: Ridge Wheat DO at 23:58 EDT , CT scan of the abdomen pelvis was obtained. There is no free air or free fluid. There is no acute inflammatory changes noted. There is diverticulosis but no evidence of diverticulitis. This was interpreted by the radiologist and was also independently reviewed by myself. Treatment and Re-Evaluation :: Patient was given IV fluids and Reglan. Patient was advised of her findings. Patient was instructed to follow-up with her primary care physician and process server in 5 to 7 days. Patient was instructed to return if worse in any way. Patient understood and was agreeable with the plan. All questions were answered. Discharge Plan Triage Chief Complaint: Abd Pain ED Provider: Sincere Burroughs Dx/Rx/DC Orders Clinical Impression: Epigastric abdominal pain Instructions: ED Epigastric Pain Uncertain Cause Prescriptions: No Action aspirin [Adult Low Dose Aspirin] 81 mg tablet,delayed release (DR/EC) 81 mg PO QODAY Rx Instructions: 81 mg PO; 3x week fluoxetine 10 mg capsule 10 mg PO DAILY lamotrigine 150 mg tablet 100 mg PO DAILY Patient Comments: Take 0.5 tablets by mouth once daily. albuterol sulfate [Ventolin HFA] 90 mcg/actuation HFA aerosol inhaler 2 inh inhalation Q6H PRN (Reason: shortness of breath or wheezing) Qty: 8.5 11RF ezetimibe [Zetia] 10 mg tablet 10 mg PO DAILY Qty: 90 3RF Breztri Aerosphere 160-9-4.8 mcg/actuation HFA aerosol inhaler 2 inh inhalation BID Qty: 10.7 11RF fluticasone propionate [Flonase Allergy Relief] 50 mcg/actuation spray ,suspension 2 spray intranasal DAILY PRN (Reason: Allergy Symptoms) Rx Instructions: administer into each nostril magnesium 200 mg tablet 200 mg PO .WEEKLY lorazepam 0.5 mg tablet 0.5 mg PO DAILY PRN (Reason: anxiety) Patient Comments: Take 1 tablet by mouth once daily as needed for up to 30 days. (DME) spacer See Rx Instructions .ROUTE .MEDSUPPLY Qty: 1 0RF Rx Instructions: As directed potassium chloride 20 mEq tablet extended release 20 meq PO .QOD Qty: 30 6RF dicyclomine 20 mg tablet 20 mg PO TID 5 Days Qty: 15 1RF Primary Care Provider: Ellis Crandall Referrals: Ellis Crandall MD [Primary Care Provider] - 3-5 Days Aime Magaña DO [Med Staff - Active Staff] - [facility] appointment Disposition Disposition: Home, Self Care
--- NOTE | 2023-09-11 22:46 | CT_ITS ---
EXAM: CT ABDOMEN AND PELVIS WITHOUT INTRAVENOUS CONTRAST CLINICAL INDICATION: Pain status post upper endoscopy. TECHNIQUE: Helically acquired images were obtained of the abdomen and pelvis without intravenous contrast. This CT exam was performed using one or more of the following dose reduction techniques: automated exposure control, adjustment of the mA and/or kV according to patient size, and/or use of iterative reconstruction technique. COMPARISON: CT abdomen and pelvis, 07/18/2022. FINDINGS: LOWER THORAX: Centrilobular emphysematous changes are present. Distal esophageal wall thickening is nonspecific. No cardiomegaly. No significant pericardial effusion. ABDOMEN: LIVER: Multiple low-attenuation foci within the liver identified, unchanged, and again characterized as cysts for which no follow-up is indicated. GALLBLADDER AND BILE DUCTS: No significant abnormality. No calcified gallstones. No gallbladder distention or wall edema. No intra- or extrahepatic biliary ductal dilation. PANCREAS: No significant abnormality. No focal cystic mass. SPLEEN: No significant abnormality. Normal size without focal cystic or solid mass. ADRENALS: No significant abnormality. No nodules. KIDNEYS AND URETERS: No significant abnormality. Normal renal size and position. No hydronephrosis. STOMACH AND BOWEL: Colonic diverticulosis without evidence of acute diverticulitis. No stomach or bowel distention. PELVIS: APPENDIX: No evidence of acute appendicitis. BLADDER: No significant abnormality. REPRODUCTIVE: Normal as visualized. No mass. ABDOMEN and PELVIS: INTRAPERITONEAL SPACE: No significant abnormality. No ascites or other fluid collection. No free air. BONES/JOINTS: Mild degenerative changes in the spine. No suspicious lytic or blastic abnormality. SOFT TISSUES: No significant abnormality. No discrete abdominal or pelvic wall hernia. VASCULATURE: Atherosclerosis of the aorta and its branch vessels. Abdominal aorta is non-dilated. LYMPH NODES: No significant abnormality. No enlarged lymph nodes. CT/Abdomen/Pelvis without Cont IMPRESSION: 1. Centrilobular emphysematous changes are present. 2. Distal esophageal wall thickening is nonspecific. No distinct distal esophageal injury. Note that the esophagus is not fully evaluated in the [id number]. 3. No evidence of free air or free fluid. No acute inflammatory changes in the abdomen and pelvis. 4. Colonic diverticulosis without evidence of acute diverticulitis. Electronically Signed: Ridge Wheat at 23:58 EDT ,
[2023-09-11] MEDS: Metoclopramide 10 MG/2 ML Vial IV (22:56)
[2023-09-11] MEDS: 0.9% Normal Saline (1000mL) 1,000 ML 1000 ML IV (22:56)
[2023-09-11 23:03] LABS: Bacteria 0 SEEN /hpf (None Seen); Mucous, Urine 0 SEEN /hpf (<or=2+); Red Blood Cells-Urine 0 SEEN /hpf (0-5); White Blood Cells 0 SEEN /hpf (0-5)
[2023-09-11 23:07] LABS: Absolute Lymphocyte Count 2.75 X10^3/uL (0.83-4.51); Absolute Neutrophil Count 4.5 X10^3/uL (2.0-7.7); Basophil# 0.06 X10^3/uL; Basophil% 0.7 % (0-1); Eosinophil# 0.23 X10^3/uL; Eosinophils% 2.9 % (0-5); Hematocrit 42.4 % (37-47); Hemoglobin 13.8 g/dL (12.0-15.0); Lymphocyte # 2.75 X10^3/ul (0.83-4.51); Lymphocyte % 34.1 % (19-41); Mean Corp Hgb Conc 32.5 g/dL (32-36); Mean Corpuscular Hgb 28.9 pg (27.0-32.0); Mean Corpuscular Volume 88.7 fL (81-99); Monocyte# 0.53 X10^3/uL; Monocyte% 6.6 % (0-10); NRBC Flagged by Analyzer 0 % (0-5); Neutrophil # 4.47 X10^3/uL (2.7-7.7); Neutrophil % 55.5 % (47-70); Platelet Count 277 K/mm3 (150-450); RBC Distribution Width CV 13.2 % (11.6-14.6); RBC Distribution Width SD 43.4 fl (35.1-43.9); Red Blood Count 4.78 M/mm3 (4.2-5.4); White Blood Count 8.1 K/mm3 (4.4-11.0)
[2023-09-11 23:13] LABS: Color, Urine Straw (Yellow); Glucose, Dipstick Normal (Normal); Ketone-Dipstick Negative (Negative); Leukocyte Esterase-Dipstick Negative /ul (Negative); Nitrite-Dipstick Negative (Negative); Occult Blood-Urine 25 /ul (Negative); Protein-Dipstick Negative (Negative); Specific Gravity, Urine 1.005 (1.002-1.030); Urine Bilirubin Dipstick Negative (Negative); Urine Clarity Clear (Clear); Urine Urobilinogen Normal (Normal)
[2023-09-11 23:23] LABS: Squamous Epithelial Cells - UA 0-5 SEEN /hpf (5-10)
[2023-09-11 23:30] LABS: AST(SGOT) 14 U/L (15-37); Alanine Aminotransfer ALT/SGPT 20 U/L (13-56); Albumin, Serum 3.6 g/dL (3.2-5.0); Alkaline Phosphatase 71 U/L (45-117); Anion Gap 6 (5-15); BUN 9 mg/dL (7-18); BUN/Creat Ratio 12.7 RATIO (10-20); Calcium,Total 9.5 mg/dL (8.5-10.1); Chloride 104 mmol/L (98-107); Creatinine, Serum 0.71 mg/dL (0.55-1.02); EST Glomerular Filtration Rate 90 mL/min (>60); Est Glom Filt Rate - Afr Amer 109 mL/min (>60); Estimated Creatinine Clearance 69.14 ml/min; Globulin 3.6 g/dL (2.2-4.2); Glucose 96 mg/dL (74-106); Lipase 39 U/L (13-75); Potassium 3.4 mmol/L (3.5-5.1); Protein, Total 7.2 g/dL (6.4-8.2); Sodium Level 137 mmol/L (136-145)
[2023-09-12 00:15] VITALS: BP 162/71; PULSE 78; RESP 16
== END 2023-09-12 00:16 | disposition home or self-care (01) ==
PROVIDERS: Emergency Provider Emergency Medicine; PCP Family Medicine; Visit Provider Emergency Medicine
DX: R10.13 Epigastric pain (principal); Z87.891 Personal history of nicotine dependence; E78.00 Pure hypercholesterolemia, unspecified; I25.10 Atherosclerotic heart disease of native coronary artery without angina pectoris; I10 Essential (primary) hypertension; I25.5 Ischemic cardiomyopathy; I25.2 Old myocardial infarction; Z79.82 Long term (current) use of aspirin; Z23 Encounter for immunization
CPT/HCPCS: 74176; 80053; 81001; 83690; 85025; 90471; 99282; J7030; A4216

== ENCOUNTER 2024-03-01 16:08 | Emergency (ER) | payer MEDICAID, SELFPAY ==
[2024-03-01 16:08] VITALS: BP 184/105; PULSE 84; RESP 16; TEMP 36.4; O2SAT 98; BMI 24.9
--- NOTE | 2024-03-01 16:24 | EDS_ITS ---
HPI History of Present Illness HPI Narrative: 58-year-old female injured her right knee. She was walking down her steps going outside tripped on the second of 4 steps and when she landed she had a large landscaping rock. No other injuries. Did not hit her head. No LOC. She is on no blood thinners. She has never had any problems or any surgery. She was able to walk in. Chief Complaint: Lower Extremity Injury Informant: patient Occured/Mechanism Mechanism/Context: Yes injury and Yes blunt trauma Onset/Context/Timing Onset: Today and Hours Context: Sudden Onset Timing: Continuous Quality of Pain: Sharp Current Severity: Mild Maximum Severity: Moderate Associated Symptoms Associated Symptoms: Negative for Parasthesia, Weakness or Loss of Funtion Narrative Narrative: 58-year-old female tripped and fell injuring her anterior right leg on a rock. No other injuries. 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 Back pain Barretts esophagus Bipolar affective disorder Borderline personality disorder Cardiology follow-up encounter Chest pain of uncertain etiology Chest pain, non-cardiac Chronic constipation Chronic left-sided thoracic back pain COPD (chronic obstructive pulmonary disease) Depression Difficulty swallowing Edentulous Eloped from emergency department Emphysema, unspecified Essential (primary) hypertension Former smoker Gastric reflux GERD (gastroesophageal reflux disease) Headache High cholesterol History of echocardiogram History of Holter monitoring History of non-ST elevation myocardial infarction (NSTEMI) (08/10/21) History of ST elevation myocardial infarction (STEMI) (12/18/20) History of stress test Intermittent palpitations Irritable bowel syndrome with diarrhea Ischemic cardiomyopathy Leg cramps Myocardial infarct Nicotine dependence 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) Post-menopausal Rheumatoid arthritis Shortness of breath Shortness of breath on exertion Smoker Takotsubo cardiomyopathy (08/10/21) Ulcerative colitis Wears glasses Home Medications aspirin 81 mg tablet,delayed release (Adult Low Dose Aspirin) 81 mg PO QODAY HEALTH MAINTENANCE 07/13/21 [History Last Taken 08/31/23] fluticasone propionate 50 mcg/actuation nasal spray,suspension (Flonase Allergy Relief) 2 spray intranasal DAILY PRN Allergy Symptoms 10/29/21 [History Last Taken Unknown] fluoxetine 10 mg capsule 10 mg PO DAILY 12/14/21 [History Last Taken Unknown] lamotrigine 150 mg tablet 100 mg PO DAILY 05/11/22 [History Last Taken Unknown] spacer #1 ea 05/23/22 [Rx Last Taken Unknown] potassium chloride 20 mEq tablet,extended release 20 meq PO .QOD #30 tabs 06/01/22 [Rx Last Taken Unknown] albuterol sulfate 90 mcg/actuation aerosol inhaler (Ventolin HFA) 2 inh inhala tion Q6H PRN shortness of breath or wheezing #8.5 grams 09/11/22 [Rx Last Taken Unknown] budesonide 160 mcg-glycopyr 9 mcg-formot 4.8 mcg/actuation HFA inhaler (Breztri Aerosphere) 2 inh inhalation BID #10.7 grams 07/16/23 [Rx Last Taken Unknown] lorazepam 0.5 mg tablet 0.5 mg PO DAILY PRN anxiety 09/04/23 [History Last Taken Unknown] magnesium 200 mg tablet 200 mg PO .WEEKLY 09/04/23 [History Last Taken Unknown] ezetimibe 10 mg tablet (Zetia) 10 mg PO DAILY #90 tabs 09/05/23 [Rx Last Taken Unknown] dicyclomine 20 mg tablet 20 mg PO TID 5 days #15 tabs 09/11/23 [Rx Last Taken Unknown] methylprednisolone 4 mg tablets in a dose pack (Medrol (Rafael)) 4 mg PO DAILY #21 tabs 09/25/23 [Rx Last Taken Unknown] Allergy/AdvReac Type Severity Reaction Status Date / Time morphine Allergy Hives Verified 03/01/24 16:09 amlodipine AdvReac Intermediate chest Verified 03/01/24 16:09 pain and cannot breathe carvedilol [From Coreg] AdvReac Intermediate throat Verified 03/01/24 16:09 closing up and chest pressure citalopram [From Celexa] AdvReac NAUSEATED Verified 03/01/24 16:09 AND IRRITABLE lisinopril AdvReac SOB, chest Verified 03/01/24 16:09 tightness,throat closing venlafaxine [From Effexor] AdvReac DIDN'T Verified 03/01/24 16:09 WORK Family History Father CAD (coronary artery disease) Myocardial infarction Surgical History H/O section History of cardiac catheterization (08/11/21) History of coronary artery stent placement (12/18/20) History of esophagogastroduodenoscopy (EGD) History of left heart catheterization (05/17/21) Social History household members: none Smoking Status: Current every day smoker tobacco type: cigarettes alcohol intake: never substance use type: does not use caffeine: Yes Type: coffee Number of servings: 2 ROS ROS ED ROS Narrative Denies recent illness. Review of Systems ROS Unobtainable: Denies due to encephalopathy Constitutional Constitutional ED: Denies chills or fever(s) Eyes Eyes: Denies blurry vision ENT ENT ED: Denies ear pain or rhinorrhea Cardiovascular Cardiovascular: Denies chest pain or palpitations Respiratory/Chest Respiratory/Chest: Denies cough or dyspnea Gastrointestinal Gastrointestinal: Denies abdominal pain, constipation, diarrhea, nausea or vomiting Genitourinary Genitourinary ED: Denies dysuria or hematuria Musculoskeletal Musculoskeletal: Denies arthralgias, back pain, myalgias or neck pain Integumentary Reports Abrasions; Denies abscess Neurologic Neurologic: Denies headache(s) Psychiatric Psychiatric: Denies anxiety Endocrine Endocrinology: Denies polydipsia Hematologic/Lymphatic Hematologic/Lymphatic: Denies easy bleeding, easy bruising or lymphadenopathy Allergic/Immunologic Allergic/Immunologic ED: Denies mouth swelling, tongue swelling or urticaria EXAM Physical Exam Narrative Exam Narrative: Well-appearing 58-year-old female. Vital signs stable afebrile. H EENT exam pupils round and light. No trauma to her face or scalp. Nontender. Neck and spine nontender. Back and spine nontender. Lungs clear to auscultation. Heart regular rhythm no murmur. Chest wall and ribs nontender. Abdomen soft nontender. Moving all 4 extremities. No deformity. Normal range of motion. Right hip and ankle are nontender. Normal dorsi plantarflexion. Normal sensation. The anterior right knee has abrasions and a knee contusion. She can flex extend the knee. She can lift and extend improving extensor mechanism is intact. She has normal flexion with some discomfort. There is no large effusion. No bony deformity. ACL and PCL are intact. As are the MCL and LCL. She has normal dorsi and plantarflexion of her right foot. Normal DP pulse. Normal touch sensation. Neurologically she is awake and alert with no focal motor deficits. Const Vital Signs: 03/01/24 16:08 Temperature 97.5 F L Temperature Source Temporal Pulse Rate 84 Respiratory Rate 16 Blood Pressure 184/105 H Blood Pressure Mean 131 Pulse Ox 98 Oxygen Delivery Method Room Air Positive well nourished and well developed; Negative for obese, cachectic, contractures or unkempt General Appearance ED: well developed and NAD; Negative for unkempt, cachectic or contractures Nutritional Appearance: Negative for cachectic or obese HEENT Reports moist mucous membranes normocephalic and atraumatic; Negative for trauma or tenderness Eyes PERRL General Eye ED: Negative for other Neck full ROM and supple Thyroid: Negative for tender Lymph Lymphatic: Negative for other Chest Wall inspection of chest normal and palpation of chest normal Chest: Negative for other Resp normal respiratory effort, no retractions and clear to auscultation bilaterally Effort and Inspection: Negative for pain with movement Auscultation: Negative for rales, rhonchi, wheezes or diminished lung sounds Percussion: Negative for other Cardio regular rate, regular rhythm, S1 normal heart sound, S2 normal heart sound and no murmurs Rate: Negative for bradycardia or tachycardic Rhythm: Negative for abnormal rhythm Bruits: Negative for other GI non-tender, non-distended and no masses Inspection: Negative for abdominal distention Auscultation: normoactive bowel sounds Palpation: soft; Negative for tender, guarding or rebound tenderness present Back/Spine no CVA tenderness General Back: Negative for CVA tenderness or swelling Cervical Spine: Negative for cervical spine tenderness Thoracic Spine / Upper Back: Negative for thoracic spinal tenderness Lumbar Spine / Lower Back: Negative for lumbar spinal tenderness Extremity normal to inspection and full ROM Extremity Narrative: Except right knee abrasion. Contusion. Normal flexion extension. No large effusion. No bony deformity. ACL and PCL are intact. As are the MCL and LCL. As is the quadriceps and infrapatellar tendons. Tender to palpation. Distally the right foot and ankle are neurovascularly intact. General Extremety ED: Yes weight-bearing difficulty; Negative for cyanosis or edema General Extremity: weight-bearing difficulty; Negative for cyanosis or edema Neuro oriented x3, CN's II-XII intact bilaterally and moves all extremities Sensorium / Orientation: alert, oriented to person, oriented to place and oriented to time; Negative for orientation impaired, confused, lethargic or stuporous Motor Exam: strength 5/5 throughout Psych mental status grossly normal Appearance: Negative for unkempt Speech: No other Skin No no wounds Skin Narrative: Abrasions anterior right knee. Lesions: no lesions Rashes: no rashes Trauma: abrasion MDM MDM MDM Narrative Medical decision making narrative: 58-year-old female tripped and fell injuring her right knee. She has an abrasion over the patella. X-ray being obtained. Tendons and ligaments appear to be intact. No effusion. She did not want a thing for pain at this time. Repeat exam at 442 unchanged. Discharged home. Ice and elevate. Entr?e signs of infection. Tylenol Motrin for pain. History & Record Review Discussion w/independent historian: Patient and Family Additional record(s) reviewed:: Prior inpatient record, Prior outpatient record, Prior ED visit and Prior labs Radiography Chest X-Ray - ED: Read by ED Physician Diagnostic Testing: Right knee x-ray, 3 views, interpreted by myself shows no acute abnormality. No fracture. No dislocation. No large effusion. Discharge Plan Triage Chief Complaint: Lower Extremity Injury ED Provider: Yonas Guzman Dx/Rx/DC Orders Clinical Impression: Fall, Contusion of knee, left, Abrasion of left knee Instructions: ED Abrasion, ED Contusion, Lower Extremity Prescriptions: No Action aspirin [Adult Low Dose Aspirin] 81 mg tablet,delayed release (DR/EC) 81 mg PO QODAY Rx Instructions: 81 mg PO; 3x week fluoxetine 10 mg capsule 10 mg PO DAILY lamotrigine 150 mg tablet 100 mg PO DAILY Patient Comments: Take 0.5 tablets by mouth once daily. albuterol sulfate [Ventolin HFA] 90 mcg/actuation HFA aerosol inhaler 2 inh inhalation Q6H PRN (Reason: shortness of breath or wheezing) Qty: 8.5 11RF methylprednisolone [Medrol (Rafael)] 4 mg tablets,dose pack 4 mg PO DAILY Qty: 21 0RF ezetimibe [Zetia] 10 mg tablet 10 mg PO DAILY Qty: 90 3RF Breztri Aerosphere 160-9-4.8 mcg/actuation HFA aerosol inhaler 2 inh inhalation BID Qty: 10.7 11RF fluticasone propionate [Flonase Allergy Relief] 50 mcg/actuation spray,suspension 2 spray intranasal DAILY PRN (Reason: Allergy Symptoms) Rx Instructions: administer into each nostril magnesium 200 mg tablet 200 mg PO .WEEKLY lorazepam 0.5 mg tablet 0.5 mg PO DAILY PRN (Reason: anxiety) Patient Comments: Take 1 tablet by mouth once daily as needed for up to 30 days. (DME) spacer See Rx Instructions .ROUTE .MEDSUPPLY Qty: 1 0RF Rx Instructions: As directed potassium chloride 20 mEq tablet extended release 20 meq PO .QOD Qty: 30 6RF dicyclomine 20 mg tablet 20 mg PO TID 5 Days Qty: 15 1RF Primary Care Provider: Ellis Crandall Referrals: Ellis Crandall MD [Primary Care Provider] - As Needed Activity Restrictions/Additional Instructions: Keep the abrasions clean. Wash daily with soap and water. Dry thoroughly. Apply antibiotic twice daily. Watch for any signs of infection such as pus or spreading redness of that seen you need to return. Motrin for pain and swelling. Tylenol for pain. Ice to decrease pain and swelling. Follow-up with your doctor if not improving in 1 to 2 weeks. At this time there is no broken bones seen on x-ray. Disposition Disposition: Home, Self Care
--- NOTE | 2024-03-01 16:25 | RAD_ITS ---
STUDY: X-RAY - RIGHT KNEE REASON FOR EXAM: Female, 58 years old. right knee pain post fall TECHNIQUE: 3 view(s) of the knee. COMPARISON: None. FINDINGS: Normal visualized distal femur. Normal visualized proximal tibia and fibula. Normal proximal tibiofibular articulation. Normal medial femorotibial compartment. Normal lateral femorotibial compartment. Normal patellofemoral articulation. The soft tissue structures are unremarkable. RAD/Knee 3 Views IMPRESSION: Normal x-ray examination of the knee. Electronically Signed: Bobo Nolasco MD at 16:58 EDT ,
[2024-03-01 16:46] VITALS: BP 168/78; PULSE 77; RESP 16; TEMP 37; O2SAT 100
== END 2024-03-01 16:58 | disposition home or self-care (01) ==
PROVIDERS: Emergency Provider Emergency Medicine; PCP Family Medicine; Visit Provider Emergency Medicine
DX: S80.02XA Contusion of left knee, initial encounter (principal); J44.9 Chronic obstructive pulmonary disease, unspecified; S80.212A Abrasion, left knee, initial encounter; W10.9XXA Fall (on) (from) unspecified stairs and steps, initial encounter; I25.10 Atherosclerotic heart disease of native coronary artery without angina pectoris; I10 Essential (primary) hypertension; E78.00 Pure hypercholesterolemia, unspecified; I25.2 Old myocardial infarction; Z79.82 Long term (current) use of aspirin; Z79.899 Other long term (current) drug therapy; F32.A Depression, unspecified; Z79.51 Long term (current) use of inhaled steroids; F41.9 Anxiety disorder, unspecified; Z95.5 Presence of coronary angioplasty implant and graft; F17.210 Nicotine dependence, cigarettes, uncomplicated
CPT/HCPCS: 73562; 99283

== ENCOUNTER 2024-04-03 16:26 | Emergency (ER) | payer MEDICAID, MEDICARE, SELFPAY ==
[2024-04-03 16:26] VITALS: BP 171/109; BP 181/111; PULSE 81; PULSE 83; RESP 14; RESP 16; TEMP 36.6; O2SAT 100; O2SAT 99; BMI 25.0
[2024-04-03 17:28] VITALS: BP 146/88; PULSE 76; RESP 18; TEMP 36.4; O2SAT 98
--- NOTE | 2024-04-03 17:30 | RAD_ITS ---
INDICATION: chest pain EXAMINATION/TECHNIQUE: X-RAY - XR Chest 2 Views COMPARISON: None. FINDINGS: LINES/DEVICES: None. LUNGS: Lungs symmetrically hyperexpanded with coarsened interstitium. Patchy peripheral opacification in the posterior right lower lobe, best seen on lateral view, likely retrodiaphragmatic an AP view. No florid edema or effusion. No pneumothorax. MEDIASTINUM AND CARDIOVASCULAR STRUCTURES: Cardiac silhouette not enlarged. Mild aortic atherosclerosis. BONES AND SOFT TISSUES: Unremarkable. RAD/Chest PA and Lateral IMPRESSION: Findings concerning for posterior right lower lobe pneumonia, superimposed on chronic obstructive pulmonary disease. If there is absence of clinical pneumonia CT chest angiogram may be beneficial to exclude embolus and infarct. Electronically Signed: Jose Lang MD at 17:54 EDT ,
--- NOTE | 2024-04-03 17:31 | EDS_ITS ---
HPI <PEACE Westfall - Last Filed: 04/03/24 21:14> History of Present Illness Chief Complaint: Back Narrative Narrative: Patient presenting today with pain between her shoulder blades that started this afternoon. She reports that the pain is radiating down her left mid back and she is having spasms on the left side of her back. However, she reports concerns for cardiac etiology as she had a [place] 4 years ago that presented similarly. She does have 1 stent placed. She denies any injury to her back. She reports that last night she was having intermittent left-sided chest pains which is not unusual for her. She has had a slight cough over the last several days. She denies any fevers, chills, shortness of breath, nausea, or vomiting. PFSH <PEACE Westfall - Last Filed: 04/03/24 21:14> [facility] Medical History Abdominal pain Adverse drug reaction Anxiety disorder Asthma-COPD overlap syndrome Atherosclerotic heart disease of [place] coronary artery without angina pectoris Back pain Barretts esophagus Bipolar affective disorder Borderline personality disorder Cardiology follow-up encounter Chest pain of uncertain etiology Chest pain, non-cardiac Chronic constipation Chronic left-sided thoracic back pain COPD (chronic obstructive pulmonary disease) Depression Difficulty swallowing Edentulous Eloped from emergency department Emphysema, unspecified Essential (primary) hypertension Former smoker Gastric reflux GERD (gastroesophageal reflux disease) Headache High cholesterol History of echocardiogram History of Holter monitoring History of non-ST elevation myocardial infarction (NSTEMI) (08/10/21) History of ST elevation myocardial infarction (STEMI) (12/18/20) History of stress test Intermittent palpitations Irritable bowel syndrome with diarrhea Ischemic cardiomyopathy Leg cramps Myocardial infarct Nicotine dependence 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) Post-menopausal Rheumatoid arthritis Shortness of breath Shortness of breath on exertion Smoker Takotsubo cardiomyopathy (08/10/21) Ulcerative colitis Wears glasses Home Medications aspirin 81 mg tablet,delayed release (Adult Low Dose Aspirin) 81 mg PO QODAY HEALTH MAINTENANCE 07/13/21 [History Last Taken 08/31/23] fluticasone propionate 50 mcg/actuation nasal spray,suspension (Flonase Allergy Relief) 2 spray intranasal DAILY PRN Allergy Symptoms 10/29/21 [History Last Taken Unknown] fluoxetine 10 mg capsule 10 mg PO DAILY 12/14/21 [History Last Taken Unknown] lamotrigine 150 mg tablet 100 mg PO DAILY 05/11/22 [History Last Taken Unknown] spacer #1 ea 05/23/22 [Rx Last Taken Unknown] albuterol sulfate 90 mcg/actuation aerosol inhaler (Ventolin HFA) 2 inh inhalation Q6H PRN shortness of breath or wheezing #8.5 grams 09/11/22 [Rx Last Taken Unknown] budesonide 160 mcg-glycopyr 9 mcg-formot 4.8 mcg/actuation HFA inhaler (Breztri Aerosphere) 2 inh inhalation BID #10.7 grams 07/16/23 [Rx Last Taken Unknown] lorazepam 0.5 mg tablet 0.5 mg PO DAILY PRN anxiety 09/04/23 [History Last Taken Unknown] magnesium 200 mg tablet 200 mg PO .WEEKLY 09/04/23 [History Last Taken Unknown] ezetimibe 10 mg tablet (Zetia) 10 mg PO DAILY #90 tabs 09/05/23 [Rx Last Taken Unknown] dicyclomine 20 mg tablet 20 mg PO TID 5 days #15 tabs 09/11/23 [Rx Last Taken Unknown] methylprednisolone 4 mg tablets in a dose pack (Medrol (Rafael)) 4 mg PO DAILY #21 tabs 09/25/23 [Rx Last Taken Unknown] amoxicillin 875 mg-potassium clavulanate 125 mg tablet 1 tab PO BID #13 tabs 04/03/24 [Rx Last Taken Unknown] potassium chloride 20 mEq tablet,extended release 20 meq PO .QOD #30 tabs 04/03/24 [Rx Last Taken Unknown] Allergy/AdvReac Type Severity Reaction Status Date / Time morphine Allergy Hives Verified 04/03/24 16:27 amlodipine AdvReac Intermediate chest Verified 04/03/24 16:27 pain and cannot breathe carvedilol [From Coreg] AdvReac Intermediate throat Verified 04/03/24 16:27 closing up and chest pressure citalopram [From Celexa] AdvReac NAUSEATED Verified 04/03/24 16:27 AND IRRITABLE lisinopril AdvReac SOB, chest Verified 04/03/24 16:27 tightness,throat closing venlafaxine [From Effexor] AdvReac DIDN'T Verified 04/03/24 16:27 WORK Family History Father CAD (coronary artery disease) Myocardial infarction Surgical History H/O section History of cardiac catheterization (08/11/21) History of coronary artery stent placement (12/18/20) History of esophagogastroduodenoscopy (EGD) History of left heart catheterization (05/17/21) Social History household members: none Smoking Status: Current every day smoker tobacco type: cigarettes alcohol intake: never substance use type: does not use caffeine: Yes Type: coffee Number of servings: 2 ROS <PEACE Westfall - Last Filed: 04/03/24 21:14> ROS ED Constitutional Constitutional ED: Denies chills or fever(s) Cardiovascular Cardiovascular: Denies chest pain or palpitations Respiratory/Chest Respiratory/Chest: Denies cough or dyspnea Gastrointestinal Gastrointestinal: Reports other Details: Mild epigastric abdominal pain ; Denies nausea or vomiting Genitourinary Genitourinary ED: Denies dysuria, hematuria or urinary urgency Musculoskeletal Musculoskeletal: Reports back pain Integumentary Denies rash Neurologic Neurologic: Denies weakness EXAM <PEACE Westfall - Last Filed: 04/03/24 21:14> Physical Exam Const Vital Signs: 04/03/24 16:26 04/03/24 16:26 04/03/24 17:28 Temperature 98 F 97.6 F L Temperature Source Temporal Oral Pulse Rate 81 83 76 Respiratory Rate 16 14 18 Blood Pressure 171/109 H 181/111 H 146/88 H Blood Pressure Mean 129 134 107 Pulse Ox 99 100 98 Oxygen Delivery Method Room Air Room Air Room Air 04/03/24 18:00 04/03/24 19:00 Temperature Temperature Source Pulse Rate 68 73 Respiratory Rate 14 16 Blood Pressure 173/98 H 167/97 H Blood Pressure Mean 123 120 Pulse Ox 97 96 Oxygen Delivery Method Room Air Room Air Positive well nourished, well developed and no apparent distress General Appearance ED: well developed HEENT Reports normocephalic and head/scalp atraumatic Mouth ED: Yes moist mucous membranes normal Eyes PERRL and EOMs intact bilaterally Neck full ROM and supple Chest Wall inspection of chest normal Resp normal respiratory effort and clear to auscultation bilaterally Cardio regular rate and regular rhythm GI soft to palpation, non-tender, non-distended and no masses Back/Spine normal ROM and normal to inspection Back/Spine Narrative: Minimal pain to palpation to the left thoracic paraspinal muscles. Extremity normal to inspection and full ROM Neuro oriented x3, CN's II-XII intact bilaterally, moves all extremities, no focal motor deficits and no sensory deficits noted Sensorium / Orientation: awake and alert Psych mental status grossly normal and thought process normal Skin no rashes or lesions noted and no wounds <Dr. Khadar Izaguirre MD - Last Filed: 04/03/24 18:37> Physical Exam Const Vital Signs: 04/03/24 16:26 04/03/24 16:26 04/03/24 17:28 Temperature 98 F 97.6 F L Temperature Source Temporal Oral Pulse Rate 81 83 76 Respiratory Rate 16 14 18 Blood Pressure 171/109 H 181/111 H 146/88 H Blood Pressure Mean 129 134 107 Pulse Ox 99 100 98 Oxygen Delivery Method Room Air Room Air Room Air 04/03/24 18:00 04/03/24 19:00 Temperature Temperature Source Pulse Rate 68 73 Respiratory Rate 14 16 Blood Pressure 173/98 H 167/97 H Blood Pressure Mean 123 120 Pulse Ox 97 96 Oxygen Delivery Method Room Air Room Air [facility] <PEACE Westfall - Last Filed: 04/03/24 21:14> [facility] Narrative Medical decision making narrative: Patient presenting today with mid and left-sided back pain that started this afternoon. Patient reports concerns for cardiac etiology, therefore cardiac workup obtained. However she does have tenderness to her left thoracic paraspinal muscles, consistent with musculoskeletal etiology. CBC, BMP, initial troponin unremarkable. D-dimer was added to rule out PE and this is unremarkable. Nonsignificant delta troponin. She was given Toradol for pain. She has had a cough over the last several days, chest x-ray does suggest right lower lobe pneumonia. Given she has a history of COPD with current tobacco use I do think she would benefit from antibiotics. She will be started on Augmentin and discharged home in stable condition. Lab Data Attestation: I reviewed the patient's lab results. Lab results narrative: Sodium 135, troponin 5, D-dimer 0.32 Labs: Laboratory Results - last 24 hr 04/03/24 16:57 WBC 6.0 RBC 4.95 Hgb 14.5 Hct 43.6 MCV 88.1 MCH 29.3 MCHC 33.3 RDW Std Deviation 43.9 RDW Coeff of Dona 13.5 Plt Count 298 MPV 11.4 Immature Gran % (Auto) 0.200 Neut % (Auto) 46.6 L Lymph % (Auto) 41.3 H [place] % (Auto) 5.7 Eos % (Auto) 5.0 Baso % (Auto) 1.2 H Absolute Neuts (auto) 2.8 Absolute Lymphs (auto) 2.46 Nucleated RBC % 0 D-Dimer Quant (PE/DVT) 0.32 Sodium 135 L Potassium 3.9 Chloride 104 Carbon Dioxide 27.0 Anion Gap 4 L BUN 9 Creatinine 0.69 Estim Creat Clear Calc 77.91 Est GFR (MDRD) Af Amer 112 Est GFR (MDRD) Non-Af 92 BUN/Creatinine Ratio 13.0 Glucose 95 Calcium 9.8 Troponin I High Sens 5 Radiography X-Ray: Read by ED Physician Diagnostic Testing: Clinical Impression(s) from Imaging Studies Chest X-Ray 04/03/24 17:30 IMPRESSION: Findings concerning for posterior right lower lobe pneumonia, superimposed on chronic obstructive pulmonary disease. If there is absence of clinical pneumonia CT chest angiogram may be beneficial to exclude embolus and infarct. Electronically Signed: Jose Lang MD at 17:54 EDT Reading Location ID and State: [facility] / [place] Tel , Service support , EKG Initial EKG: Comments: 76 bpm, normal sinus rhythm, no ST elevation, no signs of cardiac ischemia, reviewed and interpreted by attending ED physician <Dr. Khadar Izaguirre MD - Last Filed: 04/03/24 18:37> [facility] Lab Data Labs: Laboratory Results - last 24 hr 04/03/24 16:57 WBC 6.0 RBC 4.95 Hgb 14.5 Hct 43.6 MCV 88.1 MCH 29.3 MCHC 33.3 RDW Std Deviation 43.9 RDW Coeff of Dona 13.5 Plt Count 298 MPV 11.4 Immature Gran % (Auto) 0.200 Neut % (Auto) 46.6 L Lymph % (Auto) 41.3 H [place] % (Auto) 5.7 Eos % (Auto) 5.0 Baso % (Auto) 1.2 H Absolute Neuts (auto) 2.8 Absolute Lymphs (auto) 2.46 Nucleated RBC % 0 D-Dimer Quant (PE/DVT) 0.32 Sodium 135 L Potassium 3.9 Chloride 104 Carbon Dioxide 27.0 Anion Gap 4 L BUN 9 Creatinine 0.69 Estim Creat Clear Calc 77.91 Est GFR (MDRD) Af Amer 112 Est GFR (MDRD) Non-Af 92 BUN/Creatinine Ratio 13.0 Glucose 95 Calcium 9.8 Troponin I High Sens 5 Radiography Diagnostic Testing: Clinical Impression(s) from Imaging Studies Chest X-Ray 04/03/24 17:30 IMPRESSION: Findings concerning for posterior right lower lobe pneumonia, superimposed on chronic obstructive pulmonary disease. If there is absence of clinical pneumonia CT chest angiogram may be beneficial to exclude embolus and infarct. Electronically Signed: Jose Lang MD at 17:54 EDT Reading Location ID and State: [facility] / [place] Tel , Service support , Treatment and Re-Evaluation Comments:: I have personally performed a face to face assessment of the patient and have reviewed the MARQUIS Note. I performed a substantive portion of the visit including all aspects of the following. My moran findings include: History is pain in the upper mid back, she states worse on the left and nonpleuritic since this morning multiple hours. No chest discomfort. No dyspnea. No fevers or chills. She had a cough several days ago, states it was mildly productive but states that is better. No leg edema, immobilization, long travel, history of DVT. States it hurts worse in her back to move. Denies obvious injury. Exam is lungs diminished but clear throughout. Heart is regular no murmur no tachycardia. No JVD. No calf tenderness or pedal edema. Conversive in full sentences without difficulty. Medical Decison Making ACS workup. Two-view chest x-ray on my interpretation shows chronic changes but no acute abnormality, radiology concerned might be a right posterior segment of the lower lobe showing infiltrate. Also could be pulmonary infarction. We are sending a D-dimer and we will do CT angiography if abnormal to rule out pulmonary embolus which the patient has no specific risk for. Other additions or changes: [None] Discharge Plan Triage Chief Complaint: Back ED Midlevel Provider: Chante Shirley ED Provider: Khadar Izaguirre Dx/Rx/DC Orders Clinical Impression: Back pain, Pneumonia Instructions: ED Back Care Tips, ED Pneumonia (Adult) Prescriptions: New amoxicillin-pot clavulanate 875-125 mg tablet 1 tab PO BID Qty: 13 0RF No Action aspirin [Adult Low Dose Aspirin] 81 mg tablet,delayed release (DR/EC) 81 mg PO QODAY Rx Instructions: 81 mg PO; 3x week fluoxetine 10 mg capsule 10 mg PO DAILY lamotrigine 150 mg tablet 100 mg PO DAILY Patient Comments: Take 0.5 tablets by mouth once daily. albuterol sulfate [Ventolin HFA] 90 mcg/actuation HFA aerosol inhaler 2 inh inhalation Q6H PRN (Reason: shortness of breath or wheezing) Qty: 8.5 11RF methylprednisolone [Medrol (Rafael)] 4 mg tablets,dose pack 4 mg PO DAILY Qty: 21 0RF ezetimibe [Zetia] 10 mg tablet 10 mg PO DAILY Qty: 90 3RF Breztri Aerosphere 160-9-4.8 mcg/actuation HFA aerosol inhaler 2 inh inhalation BID Qty: 10.7 11RF fluticasone propionate [Flonase Allergy Relief] 50 mcg/actuation spray,suspension 2 spray intranasal DAILY PRN (Reason: Allergy Symptoms) Rx Instructions: administer into each nostril magnesium 200 mg tablet 200 mg PO .WEEKLY lorazepam 0.5 mg tablet 0.5 mg PO DAILY PRN (Reason: anxiety) Patient Comments: Take 1 tablet by mouth once daily as needed for up to 30 days. (DME) spacer See Rx Instructions .ROUTE .MEDSUPPLY Qty: 1 0RF Rx Instructions: As directed dicyclomine 20 mg tablet 20 mg PO TID 5 Days Qty: 15 1RF potassium chloride 20 mEq tablet extended release 20 meq PO .QOD Qty: 30 6RF Primary Care Provider: Ellis Crandall Referrals: Ellis Crandall MD [Primary Care Provider] - 5-7 Days Activity Restrictions/Additional Instructions: Follow-up with your PCP and return for any worsening of your symptoms. You can alternate Tylenol and ibuprofen as needed for your back pain. Taking antibiotics as directed. Disposition Disposition: Home, Self Care Discharge Date/Time: 04/03/24 20:21
[2024-04-03] MEDS: Ketorolac 15 MG/ML Vial IV (17:40)
[2024-04-03 17:46] LABS: Absolute Lymphocyte Count 2.46 X10^3/uL (0.83-4.51); Absolute Neutrophil Count 2.8 X10^3/uL (2.0-7.7); Basophil# 0.07 X10^3/uL; Basophil% 1.2 % (0-1); Hematocrit 43.6 % (37-47); Hemoglobin 14.5 g/dL (12.0-15.0); Lymphocyte # 2.46 X10^3/ul (0.83-4.51); Lymphocyte % 41.3 % (19-41); Mean Corp Hgb Conc 33.3 g/dL (32-36); Mean Corpuscular Hgb 29.3 pg (27.0-32.0); Mean Corpuscular Volume 88.1 fL (81-99); Mean Platelet Vol. 11.4 fl (6.2-12.0); Monocyte# 0.34 X10^3/uL; Monocyte% 5.7 % (0-10); NRBC Flagged by Analyzer 0 % (0-5); Neutrophil # 2.77 X10^3/uL (2.7-7.7); Neutrophil % 46.6 % (47-70); Platelet Count 298 K/mm3 (150-450); RBC Distribution Width CV 13.5 % (11.6-14.6); RBC Distribution Width SD 43.9 fl (35.1-43.9); Red Blood Count 4.95 M/mm3 (4.2-5.4)
[2024-04-03 17:58] LABS: Anion Gap 4 (5-15); BUN 9 mg/dL (7-18); Calcium,Total 9.8 mg/dL (8.5-10.1); Chloride 104 mmol/L (98-107); Creatinine, Serum 0.69 mg/dL (0.55-1.02); EST Glomerular Filtration Rate 92 mL/min (>60); Est Glom Filt Rate - Afr Amer 112 mL/min (>60); Estimated Creatinine Clearance 77.91 ml/min; Glucose 95 mg/dL (74-106); Potassium 3.9 mmol/L (3.5-5.1); Sodium Level 135 mmol/L (136-145); Troponin-I HS (w/2H Reflex) 5 pg/mL (3.0-54.0)
[2024-04-03 18:00] VITALS: BP 173/98; PULSE 68; RESP 14; O2SAT 97
[2024-04-03 18:43] LABS: D-Dimer Quantitative (DVT/PE) 0.32 FEU/ug/m (0.27-0.49)
[2024-04-03 19:00] VITALS: BP 167/97; PULSE 73; RESP 16; O2SAT 96
[2024-04-03 19:36] LABS: Reflex Troponin-HS? (from REC) Y
--- NOTE | 2024-04-03 20:02 | ED.RN ---
I WENT IN TO DRAW MORE BLOOD WORK FOR THE PATIENTS 2ND TROPONIN, AND WAS TOLD BY THE PATIENT SHE WOULD LIKE TO GO HOME WITHOUT ADDITIONAL LAB WORK. I INFORMED THE PATIENT OF THE SIGNIFICANCE OF ADDITIONAL LABS AND NECESSITY TO KEEP THE IV, BUT SHE REQUESTED FOR THE IV TO BE REMOVED AND TO SPEAK WITH THE DOCTOR SO SHE COULD BE DISCHARGED. PROVIDER NOTIFIED AT THIS TIME.
[2024-04-03] MEDS: Amox/Clavulanate 875 MG Tablet PO (20:18)
--- NOTE | 2024-04-03 20:19 | ED.RN ---
pt stated to this RN that she wanted to leave. Discussed with Dr. Izaguirre and Chante HAND. Pt refusing vital signs at this time
== END 2024-04-03 20:21 | disposition home or self-care (01) ==
PROVIDERS: Physician Assistant; Emergency Provider Emergency Medicine; PCP Family Medicine; Visit Provider Emergency Medicine
DX: J18.9 Pneumonia, unspecified organism (principal); F31.9 Bipolar disorder, unspecified; J44.9 Chronic obstructive pulmonary disease, unspecified; M54.9 Dorsalgia, unspecified; I25.2 Old myocardial infarction; I25.10 Atherosclerotic heart disease of native coronary artery without angina pectoris; I10 Essential (primary) hypertension; E78.00 Pure hypercholesterolemia, unspecified; Z79.82 Long term (current) use of aspirin; Z79.51 Long term (current) use of inhaled steroids; Z79.899 Other long term (current) drug therapy; F41.9 Anxiety disorder, unspecified; Z95.5 Presence of coronary angioplasty implant and graft; F17.210 Nicotine dependence, cigarettes, uncomplicated
CPT/HCPCS: 71046; 80048; 84484; 85025; 85379; 93005; 96374; 99284; A4216

== ENCOUNTER 2024-04-05 15:29 | Emergency (ER) | payer MEDICARE, MEDICAID, SELFPAY ==
[2024-04-05 15:32] VITALS: BP 206/117; PULSE 107; RESP 18; TEMP 36.4; O2SAT 100; BMI 24.8
[2024-04-05 15:59] VITALS: BP 160/83
--- NOTE | 2024-04-05 17:02 | EX.ED.DYSGE1 ---
HPI <PEACE Westfall - Last Filed: 04/05/24 20:28> History of Present Illness Chief Complaint: Back Narrative Narrative: Patient presenting today due to dizziness that started this afternoon. She reports that when she sits still her symptoms improved but when she moves in certain directions, they seem to worsen. No specific movement triggers her symptoms. She has no history of vertigo. She reports that she was here a few days ago for pain between her shoulder blades which is still present. She denies any fevers, chills, abdominal pain, or vomiting. She has had occasional nausea. PFSH <PEACE Westfall - Last Filed: 04/05/24 20:28> [facility] Medical History Abdominal pain Adverse drug reaction Anxiety disorder Asthma-COPD overlap syndrome Atherosclerotic heart disease of [place] coronary artery without angina pectoris Back pain Barretts esophagus Bipolar affective disorder Borderline personality disorder Cardiology follow-up encounter Chest pain of uncertain etiology Chest pain, non-cardiac Chronic constipation Chronic left-sided thoracic back pain COPD (chronic obstructive pulmonary disease) Depression Difficulty swallowing Edentulous Eloped from emergency department Emphysema, unspecified Essential (primary) hypertension Former smoker Gastric reflux GERD (gastroesophageal reflux disease) Headache High cholesterol History of echocardiogram History of Holter monitoring History of non-ST elevation myocardial infarction (NSTEMI) (08/10/21) History of ST elevation myocardial infarction (STEMI) (12/18/20) History of stress test Intermittent palpitations Irritable bowel syndrome with diarrhea Ischemic cardiomyopathy Leg cramps Myocardial infarct Nicotine dependence 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) Post-menopausal Rheumatoid arthritis Shortness of breath Shortness of breath on exertion Smoker Takotsubo cardiomyopathy (08/10/21) Ulcerative colitis Wears glasses Home Medications aspirin 81 mg tablet,delayed release (Adult Low Dose Aspirin) 81 mg PO QODAY HEALTH MAINTENANCE 07/13/21 [History Last Taken 08/31/23] fluticasone propionate 50 mcg/actuation nasal spray,suspension (Flonase Allergy Relief) 2 spray intranasal DAILY PRN Allergy Symptoms 10/29/21 [History Last Taken Unknown] fluoxetine 10 mg capsule 10 mg PO DAILY 12/14/21 [History Last Taken Unknown] lamotrigine 150 mg tablet 100 mg PO DAILY 05/11/22 [History Last Taken Unknown] spacer #1 ea 05/23/22 [Rx Last Taken Unknown] albuterol sulfate 90 mcg/actuation aerosol inhaler (Ventolin HFA) 2 inh inhalation Q6H PRN shortness of breath or wheezing #8.5 grams 09/11/22 [Rx Last Taken Unknown] budesonide 160 mcg-glycopyr 9 mcg-formot 4.8 mcg/actuation HFA inhaler (Breztri Aerosphere) 2 inh inhalation BID #10.7 grams 07/16/23 [Rx Last Taken Unknown] lorazepam 0.5 mg tablet 0.5 mg PO DAILY PRN anxiety 09/04/23 [History Last Taken Unknown] magnesium 200 mg tablet 200 mg PO .WEEKLY 09/04/23 [History Last Taken Unknown] ezetimibe 10 mg tablet (Zetia) 10 mg PO DAILY #90 tabs 09/05/23 [Rx Last Taken Unknown] dicyclomine 20 mg tablet 20 mg PO TID 5 days #15 tabs 09/11/23 [Rx Last Taken Unknown] methylprednisolone 4 mg tablets in a dose pack (Medrol (Rafael)) 4 mg PO DAILY #21 tabs 09/25/23 [Rx Last Taken Unknown] amoxicillin 875 mg-potassium clavulanate 125 mg tablet 1 tab PO BID #13 tabs 04/03/24 [Rx Last Taken Unknown] potassium chloride 20 mEq tablet,extended release 20 meq PO .QOD #30 tabs 04/03/24 [Rx Last Taken Unknown] meclizine 25 mg tablet 25 mg PO 4X/DAY PRN PRN Dizziness #20 tabs 04/05/24 [Rx Last Taken Unknown] Allergy/AdvReac Type Severity Reaction Status Date / Time morphine Allergy Hives Verified 04/05/24 15:32 amlodipine AdvReac Intermediate chest Verified 04/05/24 15:32 pain and cannot breathe carvedilol [From Coreg] AdvReac Intermediate throat Verified 04/05/24 15:32 closing up and chest pressure citalopram [From Celexa] AdvReac NAUSEATED Verified 04/05/24 15:32 AND IRRITABLE lisinopril AdvReac SOB, chest Verified 04/05/24 15:32 tightness,throat closing venlafaxine [From Effexor] AdvReac DIDN'T Verified 04/05/24 15:32 WORK Family History Father CAD (coronary artery disease) Myocardial infarction Surgical History H/O section History of cardiac catheterization (08/11/21) History of coronary artery stent placement (12/18/20) History of esophagogastroduodenoscopy (EGD) History of left heart catheterization (05/17/21) Social History household members: none Smoking Status: Current every day smoker tobacco type: cigarettes alcohol intake: never substance use type: does not use caffeine: Yes Type: coffee Number of servings: 2 ROS <PEACE Westfall - Last Filed: 04/05/24 20:28> ROS ED Constitutional Constitutional ED: Denies chills or fever(s) Eyes Eyes: Denies diplopia Cardiovascular Cardiovascular: Denies chest pain Respiratory/Chest Respiratory/Chest: Denies cough or dyspnea Gastrointestinal Gastrointestinal: Reports nausea; Denies abdominal pain or vomiting Musculoskeletal Musculoskeletal: Denies arthralgias or myalgias Integumentary Denies rash Neurologic Neurologic: Reports dizziness; Denies paresthesias EXAM <PEACE Westfall - Last Filed: 04/05/24 20:28> Physical Exam Const Vital Signs: 04/05/24 15:32 04/05/24 15:59 Temperature 97.6 F L Temperature Source Temporal Pulse Rate 107 H Respiratory Rate 18 Blood Pressure 206/117 H 160/83 H Blood Pressure Mean 146 108 Pulse Ox 100 Oxygen Delivery Method Room Air Positive well nourished, well developed and no apparent distress General Appearance ED: well developed HEENT Reports normocephalic, head/scalp atraumatic and TM's clear Tympanic Membrane ED: Yes TM's clear bilateral Mouth ED: Yes moist mucous membranes normal Eyes PERRL and EOMs intact bilaterally Neck full ROM and supple Chest Wall inspection of chest normal Resp normal respiratory effort and clear to auscultation bilaterally Cardio regular rate and regular rhythm GI soft to palpation, non-tender, non-distended and no masses Back/Spine normal ROM and normal to inspection Extremity normal to inspection and full ROM Neuro oriented x3, CN's II-XII intact bilaterally, moves all extremities, no focal motor deficits and no sensory deficits noted Sensorium / Orientation: awake and alert Motor Exam: strength 5/5 throughout Psych mental status grossly normal and thought process normal Skin no rashes or lesions noted and no wounds <Dr. Khadar Izaguirre MD - Last Filed: 04/05/24 17:27> Physical Exam Const Vital Signs: 04/05/24 15:32 04/05/24 15:59 Temperature 97.6 F L Temperature Source Temporal Pulse Rate 107 H Respiratory Rate 18 Blood Pressure 206/117 H 160/83 H Blood Pressure Mean 146 108 Pulse Ox 100 Oxygen Delivery Method Room Air [facility] <PEACE Westfall - Last Filed: 04/05/24 20:28> [facility] Narrative Medical decision making narrative: Patient presenting due to disequilibrium that started this afternoon. When she is sitting still her symptoms are improved when she moves, they are exacerbated. She does have a positive Elsa-Hallpike on the left. No nystagmus was seen. She was given meclizine and will be given a prescription for this. Symptoms do seem consistent with benign vertigo. Her NIH is 0. Initially was hypertensive but her blood pressure did improve. I have encouraged follow-up with her PCP, strict return instructions given. She will be discharged home in stable condition. <Dr. Khadar Izaguirre MD - Last Filed: 04/05/24 17:27> [facility] Rhythm Strip Rhythm Strip: Sinus Rhythm Rate: 70 Ectopy: None EKG Initial EKG: Attestation: I personally reviewed and interpreted this EKG as follows: Interpretation: Sinus Rhythm and No Acute Injury Pattern Comments: nml EKG Treatment and Re-Evaluation Comments:: I have personally performed a face to face assessment of the patient and have reviewed the MARQUIS Note. I performed a substantive portion of the visit including all aspects of the following. My moran findings include: History is sudden onset of disequilibrium along with some blurry vision and nausea when she suddenly stood up today. Now, certain movements reproduce the symptoms but remaining still makes them resolve. No earache, tinnitus, roaring, head injury. No focal neurologic symptoms. No headache. Exam is normal finger-nose [id number] bilaterally. Positive Elsa-Hallpike to the left. TMs normal bilaterally. No pathologic nystagmus. Negative jolt test but performed when patient is asymptomatic. Medical Decison Making reassured this is very likely to be peripheral etiology of disequilibrium/vertigo. Blood pressure 160/83. This is how it was last time she was here couple days ago. Her EKG is normal. She does not have chest pain. I do not think she needs any other testing right now, will give her meclizine and advised follow-up with ENT if the symptoms persist longer than 1 week. We discussed reasons to return to the ER. Other additions or changes: [None] Discharge Plan Triage Chief Complaint: Back ED Midlevel Provider: Chante Shirley ED Provider: Khadar Izaguirre Dx/Rx/DC Orders Clinical Impression: Vertigo Instructions: ED Vertigo, Unspecified Prescriptions: New meclizine 25 mg tablet 25 mg PO 4X/DAY PRN PRN (Reason: Dizziness) Qty: 20 0RF No Action aspirin [Adult Low Dose Aspirin] 81 mg tablet,delayed release (DR/EC) 81 mg PO QODAY Rx Instructions: 81 mg PO; 3x week fluoxetine 10 mg capsule 10 mg PO DAILY lamotrigine 150 mg tablet 100 mg PO DAILY Patient Comments: Take 0.5 tablets by mouth once daily. albuterol sulfate [Ventolin HFA] 90 mcg/actuation HFA aerosol inhaler 2 inh inhalation Q6H PRN (Reason: shortness of breath or wheezing) Qty: 8.5 11RF methylprednisolone [Medrol (Rafael)] 4 mg tablets,dose pack 4 mg PO DAILY Qty: 21 0RF ezetimibe [Zetia] 10 mg tablet 10 mg PO DAILY Qty: 90 3RF Breztri Aerosphere 160-9-4.8 mcg/actuation HFA aerosol inhaler 2 inh inhalation BID Qty: 10.7 11RF fluticasone propionate [Flonase Allergy Relief] 50 mcg/actuation spray,suspension 2 spray intranasal DAILY PRN (Reason: Allergy Symptoms) Rx Instructions: administer into each nostril magnesium 200 mg tablet 200 mg PO .WEEKLY lorazepam 0.5 mg tablet 0.5 mg PO DAILY PRN (Reason: anxiety) Patient Comments: Take 1 tablet by mouth once daily as needed for up to 30 days. amoxicillin-pot clavulanate 875-125 mg tablet 1 tab PO BID Qty: 13 0RF (DME) spacer See Rx Instructions .ROUTE .MEDSUPPLY Qty: 1 0RF Rx Instructions: As directed dicyclomine 20 mg tablet 20 mg PO TID 5 Days Qty: 15 1RF potassium chloride 20 mEq tablet extended release 20 meq PO .QOD Qty: 30 6RF Primary Care Provider: Ellis Crandall Referrals: Ellis Crandall MD [Primary Care Provider] - 3-5 Days if not improving Activity Restrictions/Additional Instructions: Please follow-up with PCP and return for any worsening of your symptoms. Disposition Disposition: Home, Self Care Discharge Date/Time: 04/05/24 17:45
[2024-04-05] MEDS: Meclizine HCl 25 MG Tablet PO (17:04)
--- NOTE | 2024-04-05 17:08 | ED.RN ---
patient with chief c/o of pain between shoulder blades, worse with movement. also c/o dizziness with movement starting today. pt states it feels like I could pass out denies other symptoms.
== END 2024-04-05 17:45 | disposition home or self-care (01) ==
PROVIDERS: Emergency Provider Emergency Medicine; PCP Family Medicine; Visit Provider Emergency Medicine
DX: R42 Dizziness and giddiness (principal); F31.9 Bipolar disorder, unspecified; J44.9 Chronic obstructive pulmonary disease, unspecified; I25.10 Atherosclerotic heart disease of native coronary artery without angina pectoris; I10 Essential (primary) hypertension; E78.00 Pure hypercholesterolemia, unspecified; I25.2 Old myocardial infarction; Z79.82 Long term (current) use of aspirin; Z79.899 Other long term (current) drug therapy; Z79.51 Long term (current) use of inhaled steroids; F41.9 Anxiety disorder, unspecified; Z95.5 Presence of coronary angioplasty implant and graft; F17.210 Nicotine dependence, cigarettes, uncomplicated
CPT/HCPCS: 93005; 99282

== ENCOUNTER → 2024-04-27 | Outpatient (CLI) | payer MEDICARE, MEDICAID, SELFPAY ==
--- NOTE | 2024-04-27 13:47 | CT_ITS ---
STUDY: CTA CHEST REASON FOR EXAM: Female, 58 years old. Evaluated Aorta and for PE RADIATION DOSAGE (If Supplied By Facility): CTDIvol = ( 8.12 ) mGy, DLP = ( 157.75 ) mGycm TECHNIQUE: The examination was performed with the intravenous administration of IV 100mL Isovue-370. Post-processing of the angiographic images was performed, with multiplanar reformation and 3D reconstruction. Individualized dose optimization techniques were used for this CT. COMPARISON: Comparison is made with prior study dated July 01, 2022. FINDINGS: Normal enhancement of the main pulmonary artery and right and left pulmonary arteries. Normal enhancement of the bilateral peripheral pulmonary arteries. There is no demonstrated pulmonary embolism. There is atherosclerotic calcification of the aortic arch with tortuosity. There is no demonstrated aortic dissection. There are calcifications of the coronary arteries. Normal mediastinum. Normal hilar regions. Normal visualized trachea and bronchi. Hyperinflation. Stable mild degree of emphysematous changes. Normal pleura. Normal chest wall structures. There are degenerative changes of thoracic spine. Stable appearance of the hepatic cysts. The largest cyst is in the midportion of the right lobe and measures 3.5 cm by centimeter. Small hiatal hernia. CT/CTA Chest W/WO Contrast IMPRESSION: No evidence of pulmonary embolism. Mild degree of emphysematous changes. Stable hepatic hypodensities most likely representing cysts. Electronically Signed: Darrell Wan MD at 14:58 EDT ,
== END | disposition home or self-care (01) ==
LOC: CT 13:47
PROVIDERS: PCP Family Medicine; Referring Provider Nurse Practitioner Family; Visit Provider Nurse Practitioner Family
DX: R07.9 Chest pain, unspecified (principal); J44.9 Chronic obstructive pulmonary disease, unspecified; R06.09 Other forms of dyspnea
CPT/HCPCS: 71275; Q9967

== ENCOUNTER → 2024-05-11 | Outpatient (CLI) | payer MEDICARE, MEDICAID, SELFPAY ==
--- NOTE | 2024-05-11 10:34 | STRESSREP_ITS ---
Stress Test Report Exercise myocardial perfusion stress test. 58-year-old lady with a history of coronary artery disease Stress protocol: Resting EKG demonstrates normal sinus rhythm with a rate of 71 bpm resting blood pressure is 158/94 mmHg. The patient exercised according to the regular Mariano protocol for a total duration of 5 minutes and 30 seconds attaining a maximum heart rate of 139 bpm which was 85% of maximum predicted heart rate; the maximum workload was 7 metabolic equivalents. At rest there were no ST or T wave changes noted to suggest ischemia and at peak exercise upsloping ST changes only were noted which did not meet the criteria for ischemia. No clinical angina was noted the test was terminated due to the target heart rate being ach ieved/fatigue. The peak blood pressure was 180/90 mmHg. Rate-pressure product was 24,400. Myocardial perfusion protocol. 11.3 mCi of technetium 99m sestamibi was injected at rest. The patient exer cised according to regular Mariano protocol for total duration of 5 minutes and 32nd and at peak exercise 33.8 mCi of technetium 99m sestamibi was injected stress images were obtained stress and rest images were reconstructed in comparing the short axis vertical long and horizontal long axis. Gated images were also obtained. Perfusion SPECT analysis: Review of the stress images demonstrate normal uptake of tracer noted in all areas of the myocardium. The resting images similarly demonstrate normal uptake of tracer noted in all areas of the myocardium. No areas of reversibility are noted to suggest ischemia no previous infarct was noted. Gated SPECT analysis: The gated ejection fraction is 61%. Conclusion: Normal exercise myocardial perfusion stress test at a moderate workload Preserved ejection fraction.
== END | disposition home or self-care (01) ==
LOC: CVS 06:29
PROVIDERS: PCP Family Medicine; Referring Provider Nurse Practitioner Family; Visit Provider Nurse Practitioner Family
DX: R07.9 Chest pain, unspecified (principal); J44.9 Chronic obstructive pulmonary disease, unspecified; R06.09 Other forms of dyspnea; Z95.5 Presence of coronary angioplasty implant and graft
CPT/HCPCS: 78452; 93017; A9500; A4216

== ENCOUNTER 2024-06-17 10:12 | Emergency (ER) | payer MEDICARE, MEDICAID, SELFPAY ==
[2024-06-17 10:12] VITALS: BP 181/110; BP 196/104; PULSE 79; PULSE 82; RESP 14; TEMP 36.6; O2SAT 100; O2SAT 98; BMI 24.8
--- NOTE | 2024-06-17 10:20 | EKG12_ITS ---
Test Reason : SHOULDER PAIN Blood Pressure : / mmHG Vent. Rate : 081 BPM Atrial Rate : 081 BPM P-R Int : 146 ms QRS Dur : 090 ms QT Int : 388 ms P-R-T Axes : 075 065 069 degrees QTc Int : 450 ms Normal sinus rhythm Normal ECG Confirmed by GARLAND KING, ALEX ([id number]), manager editorial MIGUEL ARSHAD ([id number]) on 06/23/2024 2:26:09 PM Referred By: ELIU/ZEHRA Confirmed By:BARRETT HAQUE MD
--- NOTE | 2024-06-17 10:29 | RAD_ITS ---
STUDY: X-RAY CHEST REASON FOR EXAM: Female, 58 years old. Chest pain and left arm pain. TECHNIQUE: Single AP portable view of the chest. COMPARISON: Comparison is made with prior study dated April 03, 2024. FINDINGS: EKG electrodes are seen. There is hyperinflation of the lungs consistent with chronic obstructive lung disease (COPD). There is no demonstrated pleural abnormality. Normal size heart. Normal mediastinum and kirsten. Normal visualized pulmonary arteries. There is atherosclerotic calcification of the aortic arch with tortuosity. Normal visualized thoracic spine. Normal visualized ribs, clavicles, and shoulders. There is no demonstrated abnormality of the visualized soft tissue structures of the upper abdomen. RAD/Chest 1 View (Portable) IMPRESSION: Hyperinflation. No acute abnormality is seen. Electronically Signed: Darrell Wan MD at 11:03 EDT ,
--- NOTE | 2024-06-17 10:34 | EDS_ITS ---
HPI History of Present Illness Chief Complaint: Chest Pain Informant: patient Narrative Narrative: 58-year-old female presenting to the emergency room with burning sensation of the left back into the left arm. Patient states this has been present over the past couple days its gotten worse. She states it was in between her shoulder blades but feels now more into the left shoulder blade. She states it feels like there is a very tight muscle that squeezing her. She notes nausea. No reported fevers. No back injuries. She states that she recently saw cardiology in the office and that the pain that she was experiencing between her shoulder blades was felt not to be her heart related. She states that now it is moving to the left scapula symptoms seem to have gotten worse and so she came to emergency. She notes notes a history of COPD tach is having discovery of myopathy/NSTEMI hypertension hyperlipidemia tobacco use. Symptoms are worse with movement. [facility] Medical History Rheumatoid arthritis High cholesterol Edentulous Smoker Emphysema, unspecified History of stress test Cardiology follow-up encounter Ulcerative colitis History of non-ST elevation myocardial infarction (NSTEMI) (08/10/21) Barretts esophagus Chronic constipation Irritable bowel syndrome with diarrhea Takotsubo cardiomyopathy (08/10/21) Post-menopausal Wears glasses Back pain Difficulty swallowing Gastric reflux Shortness of breath on exertion Leg cramps History of Holter monitoring History of echocardiogram Eloped from emergency department Intermittent palpitations Chest pain, non-cardiac Abdominal pain Depression Former smoker Myocardial infarct Asthma-COPD overlap syndrome Chest pain of uncertain etiology Headache Anxiety disorder Chronic left-sided thoracic back pain Adverse drug reaction COPD (chronic obstructive pulmonary disease) Shortness of breath 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) Ischemic cardiomyopathy Nicotine dependence Essential (primary) hypertension History of ST elevation myocardial infarction (STEMI) (12/18/20) Atherosclerotic heart disease of [place] coronary artery without angina pectoris GERD (gastroesophageal reflux disease) Borderline personality disorder Bipolar affective disorder Home Medications ?Medication ?Instructions ?Recorded ?Last Taken ?Type aspirin 81 mg tablet,delayed 81 mg PO QODAY HEALTH MAINTENANCE 07/13/21 08/31/23 History release (Adult Low Dose Aspirin) fluticasone propionate 50 2 spray intranasal DAILY PRN 10/29/21 Unknown History mcg/actuation nasal Allergy Symptoms spray,suspension (Flonase Allergy Relief) spacer #1 ea 05/23/22 Unknown Rx lorazepam 0.5 mg tablet 0.5 mg PO DAILY PRN anxiety 09/04/23 Unknown History potassium chloride 20 mEq 20 meq PO .QOD #30 tabs 04/03/24 Unknown Rx tablet,extended release cholecalciferol (vitamin D3) 50 50 mcg PO QDAY 04/09/24 Unknown History mcg (2,000 unit) capsule (Vitamin D3) doxazosin 1 mg tablet (Cardura) 1 mg PO DAILY #90 tabs 04/09/24 Unknown Rx ezetimibe 10 mg tablet (Zetia) 10 mg PO DAILY #90 tabs 04/09/24 Unknown Rx fluoxetine 20 mg capsule 20 mg PO QDAY 04/09/24 Unknown History lamotrigine 25 mg tablet 25 mg PO DAILY 04/09/24 Unknown History magnesium 200 mg tablet 200 mg PO QWEEK 04/09/24 Unknown History albuterol sulfate 90 mcg/actuation 2 inh inhalation Q6H PRN shortness 05/11/24 Unknown Rx aerosol inhaler (Ventolin HFA) of breath or wheezing #8.5 grams budesonide 160 mcg-glycopyr 9 2 inh inhalation BID #10.7 grams 05/11/24 Unknown Rx mcg-formot 4.8 mcg/actuation HFA inhaler (Breztri Aerosphere) cyclobenzaprine 10 mg tablet 10 mg PO TID PRN Muscle Spasm #15 06/17/24 Unknown Rx TABLETS hydrocodone-acetaminophen 5-325mg 1 tab PO Q6H PRN PRN Pain 3 days 06/17/24 Unknown Rx 5mg-325mg #10 TABLETS lidocaine 5 % topical patch 1 patch topical DAILY #7 ea 06/17/24 Unknown Rx (Lidoderm) Allergy/AdvReac Type Severity Reaction Status Date / Time morphine Allergy Hives Verified 06/17/24 10:13 amlodipine AdvReac Intermediate chest Verified 06/17/24 10:13 pain and cannot breathe carvedilol (From Coreg) AdvReac Intermediate throat Verified 06/17/24 10:13 closing up and chest pressure citalopram (From Celexa) AdvReac NAUSEATED Verified 06/17/24 10:13 AND IRRITABLE lisinopril AdvReac SOB, chest Verified 06/17/24 10:13 tightness,throat closing venlafaxine (From Effexor) AdvReac DIDN'T Verified 06/17/24 10:13 WORK Family History Father CAD (coronary artery disease) Myocardial infarction Surgical History History of esophagogastroduodenoscopy (EGD) History of cardiac catheterization (08/11/21) H/O section History of left heart catheterization (05/17/21) History of coronary artery stent placement (12/18/20) Social History household members: none Smoking Status: Current every day smoker tobacco type: cigarettes alcohol intake: never substance use type: does not use caffeine: Yes Type: coffee Number of servings: 2 ROS ROS ED Constitutional Constitutional ED: Denies chills or weight loss Eyes Eyes: Denies change in vision or diplopia ENT ENT ED: Denies ear pain, rhinorrhea or sore throat Cardiovascular Cardiovascular: Denies chest pain, orthopnea, palpitations or racing heartbeat Respiratory/Chest Respiratory/Chest: Denies cough, dyspnea or orthopnea Gastrointestinal Gastrointestinal: Reports nausea; Denies abdominal pain, diarrhea or vomiting Genitourinary Genitourinary ED: Denies dysuria, hematuria or urinary frequency Musculoskeletal Musculoskeletal: Reports back pain; Denies arthralgias, myalgias or neck pain Integumentary Denies abscess or rash Neurologic Neurologic: Reports paresthesias; Denies headache(s) or weakness Psychiatric Psychiatric: Denies anxiety, depression, suicidal ideation or suicidal thoughts Endocrine Endocrinology: Denies polydipsia, polyphagia or polyuria Allergic/Immunologic Allergic/Immunologic ED: Denies mouth swelling, tongue swelling or urticaria EXAM Physical Exam Const Vital Signs: 06/17/24 10:12 06/17/24 10:12 06/17/24 10:47 Temperature 98 F Temperature Source Temporal Pulse Rate 79 82 Respiratory Rate 14 14 Respiratory Effort Normal Non-Labored Respiratory Pattern Normal Blood Pressure 196/104 H 181/110 H Blood Pressure Mean 134 133 Pulse Ox 100 98 Oxygen Delivery Method Room Air Room Air Positive well nourished and well developed General Appearance ED: well developed HEENT Reports normocephalic, head/scalp atraumatic and moist mucous membranes Eyes PERRL and EOMs intact bilaterally Neck no lymphadenopathy, supple and no JVD Resp normal respiratory effort and clear to auscultation bilaterally Cardio regular rate, regular rhythm and no murmurs GI normal to inspection, nondistended, normoactive bowel sounds and non-tender Palpation: soft Back/Spine no CVA tenderness Back/Spine Narrative: Patient's notes pain in the left scapular region with palpation and with having her sit forward twist. She notes increased pain with deep breathing. Extremity normal to inspection General Extremety ED: Negative for edema General Extremity: Negative for edema Neuro oriented x3 and CN's II-XII intact bilaterally Sensorium / Orientation: alert Motor Exam: strength 5/5 throughout Psych mental status grossly normal Mood & Affect: Negative for depressed or tearful Skin no rashes or lesions noted and no wounds MDM MDM MDM Narrative Medical decision making narrative: Differential diagnosis includes but not limited to back sprain strain, muscle spasm, thoracic radicular pain cervical radicular pain ACS aortic dissection pulmonary embolism pleural effusion pneumonia White count 6.3 hemoglobin 13.9 platelet count is 262. D-dimer 0.31. Troponin is normal at 5. Liver lipase within normal limits. My independent interpretation of the chest x-ray is no acute process. No evidence of aortic dissection or aneurysm. Patient's blood pressure has come down currently 160/87. Patient received Toradol Ativan and Lidoderm patch. At this point think the patient can be discharged home. I wonder if this is a back spasm causing nerve impingement. I think we can treat conservatively initially have her follow-up if not improving return History & Record Review Discussion w/independent historian: Patient Lab Data Attestation: I reviewed the patient's lab results. Labs: Laboratory Results - last 24 hr 06/17/24 10:25 WBC 6.3 RBC 4.84 Hgb 13.9 Hct 42.4 MCV 87.6 MCH 28.7 MCHC 32.8 RDW Std Deviation 43.1 RDW Coeff of Dona 13.4 Plt Count 262 MPV 10.6 Immature Gran % (Auto) 0.200 Neut % (Auto) 45.5 L Lymph % (Auto) 41.4 H Addison % (Auto) 7.2 Eos % (Auto) 4.6 Baso % (Auto) 1.1 H Absolute Neuts (auto) 2.9 Absolute Lymphs (auto) 2.60 Nucleated RBC % 0 PT 13.3 INR 1.0 APTT 31.4 D-Dimer Quant (PE/DVT) 0.31 Sodium 135 L Potassium 3.5 Chloride 104 Carbon Dioxide 25.0 Anion Gap 6 BUN 11 Creatinine 0.69 Estim Creat Clear Calc 77.74 Est GFR (MDRD) Af Amer 112 Est GFR (MDRD) Non-Af 92 BUN/Creatinine Ratio 15.9 Glucose 89 Calcium 9.2 Total Bilirubin 0.50 Direct Bilirubin 0.12 AST 16 ALT 19 Alkaline Phosphatase 66 Troponin I High Sens 5 Total Protein 7.5 Albumin 3.7 Globulin 3.8 Lipase 31 Radiography Diagnostic Testing: Clinical Impression(s) from Imaging Studies Chest X-Ray 06/17/24 10:29 IMPRESSION: Hyperinflation. No acute abnormality is seen. Electronically Signed: Darrell Wan MD at 11:03 EDT , EKG Initial EKG: Attestation: I personally reviewed and interpreted this EKG as follows: Comments: Normal sinus rhythm ventricular rate of 81 bpm. No concerning features of ACS noted. Discharge Plan Triage Chief Complaint: Chest Pain Other Complaint: Upper Extremity Injury ED Provider: Alhaji Ceja Dx/Rx/DC Orders Clinical Impression: Back pain, Essential (primary) hypertension, COPD (chronic obstructive pulmonary disease), Neuropathic pain Prescriptions: New lidocaine [Lidoderm] 5 % adhesive patch,medicated 1 patch topical DAILY Qty: 7 0RF Rx Instructions: leave on most painful area for up to 12 hrs cyclobenzaprine 10 mg tablet 10 mg PO TID PRN (Reason: Muscle Spasm) Qty: 15 0RF hydrocodone-acetaminophen 5-325 mg tablet 1 tab PO Q6H PRN PRN (Reason: Pain) 3 Days Qty: 10 0RF No Action aspirin [Adult Low Dose Aspirin] 81 mg tablet,delayed release (DR/EC) 81 mg PO QODAY Rx Instructions: 81 mg PO; 3x week lamotrigine 25 mg tablet 25 mg PO DAILY fluoxetine 20 mg capsule 20 mg PO QDAY cholecalciferol (vitamin D3) [Vitamin D3] 50 mcg (2,000 unit) capsule 50 mcg PO QDAY ezetimibe [Zetia] 10 mg tablet 10 mg PO DAILY Qty: 90 3RF doxazosin [Cardura] 1 mg tablet 1 mg PO DAILY Qty: 90 3RF fluticasone propionate [Flonase Allergy Relief] 50 mcg/actuation spray,suspension 2 spray intranasal DAILY PRN (Reason: Allergy Symptoms) Rx Instructions: administer into each nostril lorazepam 0.5 mg tablet 0.5 mg PO DAILY PRN (Reason: anxiety) Patient Comments: Take 1 tablet by mouth once daily as needed for up to 30 days. magnesium 200 mg tablet 200 mg PO QWEEK (DME) spacer See Rx Instructions .ROUTE .MEDSUPPLY Qty: 1 0RF Rx Instructions: As directed potassium chloride 20 mEq tablet extended release 20 meq PO .QOD Qty: 30 6RF Breztri Aerosphere 160-9-4.8 mcg/actuation HFA aerosol inhaler 2 inh inhalation BID Qty: 10.7 11RF albuterol sulfate [Ventolin HFA] 90 mcg/actuation HFA aerosol inhaler 2 inh inhalation Q6H PRN (Reason: shortness of breath or wheezing) Qty: 8.5 11RF Primary Care Provider: Ellis Crandall Referrals: Ellis Crandall MD [Primary Care Provider] - 1 Week if not improving Print Language: Tamazight Disposition Disposition: Home, Self Care
[2024-06-17] MEDS: LORazepam 2 MG/ML Syringe 1 MG IV (10:42)
[2024-06-17] MEDS: Ketorolac 15 MG/ML Vial IV (10:42)
[2024-06-17] MEDS: Lidocaine 5% Patch 1 PATCH TOPICAL (10:42)
[2024-06-17 10:43] LABS: Absolute Neutrophil Count 2.9 X10^3/uL (2.0-7.7); Basophil# 0.07 X10^3/uL; Basophil% 1.1 % (0-1); Eosinophil# 0.29 X10^3/uL; Eosinophils% 4.6 % (0-5); Hematocrit 42.4 % (37-47); Hemoglobin 13.9 g/dL (12.0-15.0); Lymphocyte % 41.4 % (19-41); Mean Corp Hgb Conc 32.8 g/dL (32-36); Mean Corpuscular Hgb 28.7 pg (27.0-32.0); Mean Corpuscular Volume 87.6 fL (81-99); Mean Platelet Vol. 10.6 fl (6.2-12.0); Monocyte# 0.45 X10^3/uL; Monocyte% 7.2 % (0-10); NRBC Flagged by Analyzer 0 % (0-5); Neutrophil # 2.86 X10^3/uL (2.7-7.7); Neutrophil % 45.5 % (47-70); Platelet Count 262 K/mm3 (150-450); RBC Distribution Width CV 13.4 % (11.6-14.6); RBC Distribution Width SD 43.1 fl (35.1-43.9); Red Blood Count 4.84 M/mm3 (4.2-5.4); White Blood Count 6.3 K/mm3 (4.4-11.0)
[2024-06-17] MEDS: Ondansetron 4 MG/2 ML Vial IV (10:44)
[2024-06-17 10:52] LABS: Prothrombin Time (Protime)PT. 13.3 SECONDS (11.7-14.9)
[2024-06-17 10:53] LABS: Partial Thromboplast Time 31.4 Seconds (24.1-36.2)
[2024-06-17 11:02] LABS: AST(SGOT) 16 U/L (15-37); Alanine Aminotransfer ALT/SGPT 19 U/L (13-56); Albumin, Serum 3.7 g/dL (3.2-5.0); Alkaline Phosphatase 66 U/L (45-117); Anion Gap 6 (5-15); BUN 11 mg/dL (7-18); BUN/Creat Ratio 15.9 RATIO (10-20); Bilirubin, Direct 0.12 mg/dL (0.00-0.30); Calcium,Total 9.2 mg/dL (8.5-10.1); Chloride 104 mmol/L (98-107); Creatinine, Serum 0.69 mg/dL (0.55-1.02); EST Glomerular Filtration Rate 92 mL/min (>60); Est Glom Filt Rate - Afr Amer 112 mL/min (>60); Estimated Creatinine Clearance 77.74 ml/min; Globulin 3.8 g/dL (2.2-4.2); Glucose 89 mg/dL (74-106); Lipase 31 U/L (13-75); Potassium 3.5 mmol/L (3.5-5.1); Protein, Total 7.5 g/dL (6.4-8.2); Sodium Level 135 mmol/L (136-145); Troponin-I HS 5 pg/mL (3.0-54.0)
[2024-06-17 11:03] LABS: D-Dimer Quantitative (DVT/PE) 0.31 FEU/ug/m (0.27-0.49)
[2024-06-17 12:04] VITALS: BP 160/87; PULSE 79; RESP 15; TEMP 36.1; O2SAT 96
== END 2024-06-17 12:05 | disposition home or self-care (01) ==
PROVIDERS: Emergency Provider Emergency Medicine; PCP Family Medicine; Visit Provider Emergency Medicine
DX: M54.9 Dorsalgia, unspecified (principal); J44.9 Chronic obstructive pulmonary disease, unspecified; I25.10 Atherosclerotic heart disease of native coronary artery without angina pectoris; M25.511 Pain in right shoulder; M25.512 Pain in left shoulder; G62.9 Polyneuropathy, unspecified; R11.0 Nausea; I25.5 Ischemic cardiomyopathy; I10 Essential (primary) hypertension; I25.2 Old myocardial infarction; R07.9 Chest pain, unspecified
CPT/HCPCS: 71045; 80048; 80076; 83690; 84484; 85025; 85379; 85610; 85730; 93005; 96374; 96375; 99285; J7030; A4216; J2405

== ENCOUNTER → 2024-07-10 | Outpatient (CLI) | payer MEDICARE, MEDICAID, SELFPAY ==
--- NOTE | 2024-07-10 12:47 | CT_ITS ---
EXAM: CT CHEST, LUNG CANCER SCREENING WITHOUT INTRAVENOUS CONTRAST CLINICAL INDICATION: smoker TECHNIQUE: Helically acquired images were obtained of the chest without intravenous contrast using low dose (LDCT) lung cancer screening protocol. This CT exam was performed using one or more of the following dose reduction techniques: automated exposure control, adjustment of the mA and/or kV according to patient size, and/or use of iterative reconstruction technique. COMPARISON: 04/27/2024; 07/09/2023 FINDINGS: LUNGS AND PLEURAL SPACES: Diffuse centrilobular emphysema. Unchanged 3 mm pleural-based nodule in the left upper lobe. Unchanged pleural-based nodule in the posterior right upper lobe measuring 4 mm. Minimal scarring or atelectasis in the lingula. No pneumothorax. HEART: Coronary artery calcifications and/or stents. Heart size is normal. No pericardial effusion. MEDIASTINUM: No significant abnormality. No mediastinal or hilar adenopathy. Esophagus is unremarkable. No hiatal hernia. THYROID: No significant abnormality. No thyroid lesions. BONES/JOINTS: Degenerative changes in the spine. No suspicious lytic or blastic abnormality. VASCULATURE: Atherosclerosis. LYMPH NODES: No significant abnormality. No enlarged lymph nodes. LIVER: Hepatic cysts are again identified. CT/Low Dose CT Lung Screening IMPRESSION: ACR Lung CT Screening Reporting And Data System (Lung-RADS) score: 2 - Benign Appearance or Behavior. Recommend continued annual screening with a low-dose CT (LDCT) in 12 months. Electronically Signed: Ridge Wheat DO at 13:28 EDT ,
== END | disposition home or self-care (01) ==
LOC: CT 12:46
PROVIDERS: PCP Family Medicine; Referring Provider Nurse Practitioner Acute Care; Visit Provider Nurse Practitioner Acute Care
DX: Z12.2 Encounter for screening for malignant neoplasm of respiratory organs (principal); F17.210 Nicotine dependence, cigarettes, uncomplicated; R03.0 Elevated blood-pressure reading, without diagnosis of hypertension
CPT/HCPCS: 71271; 93788

== ENCOUNTER 2024-09-02 10:03 | Emergency (ER) | payer MEDICARE, MEDICAID, SELFPAY ==
[2024-09-02 10:03] VITALS: BP 183/103; PULSE 83; RESP 16; TEMP 36.4; O2SAT 96; BMI 24.7
--- NOTE | 2024-09-02 10:26 | EKG12_ITS ---
Test Reason : CP Blood Pressure : / mmHG Vent. Rate : 068 BPM Atrial Rate : 068 BPM P-R Int : 178 ms QRS Dur : 096 ms QT Int : 418 ms P-R-T Axes : 069 057 055 degrees QTc Int : 444 ms Sinus rhythm with Premature atrial complexes with Aberrant conduction Otherwise normal ECG Confirmed by JORJE KING, LEONIDES ([id number]), food editor MIGUEL ARSHAD ([id number]) on 09/04/2024 2:03:53 PM Referred By: Confirmed By:LEONIDES RECINOS MD
--- NOTE | 2024-09-02 10:28 | ED.VIS.CHEST ---
HPI History of Present Illness Chief Complaint: Chest Pain Informant: patient Narrative Narrative: 59-year-old female presenting to the emergency room chief complaint of chest pain. 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 The patient states that she has an appointment later this week because she has had constipation issues. She states that the woke this morning and developed a sharp stabbing-like pain in the left lower midsternal chest that radiated into her back. This occurred when she went to eat something. It came on suddenly and then resolved she tried to drink something again and it happened in and then a third time. She states now she is not having any symptoms. She states that she is worried that she may be having a cardiac event. She notes a history of coronary artery disease with prior coronary artery stenting [facility] Medical History Rheumatoid arthritis High cholesterol Edentulous Smoker Emphysema, unspecified History of stress test Cardiology follow-up encounter Ulcerative colitis History of non-ST elevation myocardial infarction (NSTEMI) (08/10/21) Barretts esophagus Chronic constipation Irritable bowel syndrome with diarrhea Takotsubo cardiomyopathy (08/10/21) Post-menopausal Wears glasses Back pain Difficulty swallowing Gastric reflux Shortness of breath on exertion Leg cramps History of Holter monitoring History of echocardiogram Eloped from emergency department Intermittent palpitations Chest pain, non-cardiac Abdominal pain Depression Former smoker Myocardial infarct Asthma-COPD overlap syndrome Chest pain of uncertain etiology Headache Anxiety disorder Chronic left-sided thoracic back pain Adverse drug reaction COPD (chronic obstructive pulmonary disease) Shortness of breath 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) Ischemic cardiomyopathy Nicotine dependence Essential (primary) hypertension History of ST elevation myocardial infarction (STEMI) (12/18/20) Atherosclerotic heart disease of [place] coronary artery without angina pectoris GERD (gastroesophageal reflux disease) Borderline personality disorder Bipolar affective disorder Home Medications ?Medication ?Instructions ?Recorded ?Last Taken ?Type aspirin 81 mg tablet,delayed 81 mg PO QODAY HEALTH MAINTENANCE 07/13/21 08/31/23 History release (Adult Low Dose Aspirin) fluticasone propionate 50 2 spray intranasal DAILY PRN 10/29/21 Unknown History mcg/actuation nasal Allergy Symptoms spray,suspension (Flonase Allergy Relief) spacer #1 ea 05/23/22 Unknown Rx lorazepam 0.5 mg tablet 0.5 mg PO DAILY PRN anxiety 09/04/23 Unknown History potassium chloride 20 mEq 20 meq PO .QOD #30 tabs 04/03/24 Unknown Rx tablet,extended release cholecalciferol (vitamin D3) 50 50 mcg PO QDAY 04/09/24 Unknown History mcg (2,000 unit) capsule (Vitamin D3) ezetimibe 10 mg tablet (Zetia) 10 mg PO DAILY #90 tabs 04/09/24 Unknown Rx fluoxetine 20 mg capsule 20 mg PO QDAY 04/09/24 Unknown History lamotrigine 25 mg tablet 25 mg PO DAILY 04/09/24 Unknown History magnesium 200 mg tablet 200 mg PO QWEEK 04/09/24 Unknown History albuterol sulfate 90 mcg/actuation 2 inh inhalation Q6H PRN shortness 05/11/24 Unknown Rx aerosol inhaler (Ventolin HFA) of breath or wheezing #8.5 grams cyclobenzaprine 10 mg tablet 10 mg PO TID PRN Muscle Spasm #15 06/17/24 Unknown Rx TABLETS lidocaine 5 % topical patch 1 patch topical DAILY #7 ea 06/17/24 Unknown Rx (Lidoderm) hydrochlorothiazide 25 mg tablet 25 mg PO DAILY #30 tabs 06/19/24 Unknown Rx doxazosin 1 mg tablet 1 mg PO DAILY #90 tabs 06/22/24 Unknown Rx Amitiza 24 mcg capsule 24 mcg PO BID 30 days #180 caps 06/30/24 Unknown Rx (lubiprostone) budesonide 160 mcg-glycopyr 9 2 inh inhalation BID #3 ea 08/04/24 Unknown Rx mcg-formot 4.8 mcg/actuation HFA inhaler (Breztri Aerosphere) Allergy/AdvReac Type Severity Reaction Status Date / Time morphine Allergy Hives Verified 09/02/24 10:06 amlodipine AdvReac Intermediate chest Verified 09/02/24 10:06 pain and cannot breathe carvedilol (From Coreg) AdvReac Intermediate throat Verified 09/02/24 10:06 closing up and chest pressure citalopram (From Celexa) AdvReac NAUSEATED Verified 09/02/24 10:06 AND IRRITABLE lisinopril AdvReac SOB, chest Verified 09/02/24 10:06 tightness,throat closing venlafaxine (From Effexor) AdvReac DIDN'T Verified 09/02/24 10:06 WORK Family History Father CAD (coronary artery disease) Myocardial infarction Surgical History History of esophagogastroduodenoscopy (EGD) History of cardiac catheterization (08/11/21) H/O section History of left heart catheterization (05/17/21) History of coronary artery stent placement (12/18/20) Social History household members: none Smoking Status: Current every day smoker tobacco type: cigarettes alcohol intake: never substance use type: does not use caffeine: Yes Type: coffee Number of servings: 2 ROS ROS ED Constitutional Constitutional ED: Denies chills or weight loss Eyes Eyes: Denies change in vision or diplopia ENT ENT ED: Denies ear pain, rhinorrhea or sore throat Cardiovascular Cardiovascular: Reports chest pain; Denies orthopnea, palpitations or racing heartbeat Respiratory/Chest Respiratory/Chest: Denies cough, dyspnea or orthopnea Gastrointestinal Gastrointestinal: Reports constipation; Denies abdominal pain, diarrhea, nausea or vomiting Genitourinary Genitourinary ED: Denies dysuria, hematuria or urinary frequency Musculoskeletal Musculoskeletal: Reports back pain; Denies arthralgias or myalgias Integumentary Denies abscess or rash Neurologic Neurologic: Denies headache(s) or weakness Psychiatric Psychiatric: Denies anxiety, depression, suicidal ideation or suicidal thoughts Endocrine Endocrinology: Denies polydipsia, polyphagia or polyuria Allergic/Immunologic Allergic/Immunologic ED: Denies mouth swelling, tongue swelling or urticaria EXAM Physical Exam Const Vital Signs: 09/02/24 10:03 09/02/24 11:23 09/02/24 11:24 Temperature 97.5 F L Temperature Source Temporal Pulse Rate 83 63 Respiratory Rate 16 Respiratory Effort Normal Non-Labored Blood Pressure 183/103 H 140/86 H Blood Pressure Mean 129 104 Pulse Ox 96 Oxygen Delivery Method Room Air Positive well nourished and well developed General Appearance ED: well developed HEENT Reports normocephalic, head/scalp atraumatic and moist mucous membranes Eyes PERRL and EOMs intact bilaterally Neck no lymphadenopathy, supple and no JVD Resp normal respiratory effort and clear to auscultation bilaterally Cardio regular rate, regular rhythm and no murmurs GI normal to inspection, nondistended, normoactive bowel sounds and non-tender Palpation: soft Back/Spine no CVA tenderness and normal ROM Extremity normal to inspection General Extremety ED: Negative for edema General Extremity: Negative for edema Neuro oriented x3 and CN's II-XII intact bilaterally Sensorium / Orientation: alert Motor Exam: strength 5/5 throughout Psych mental status grossly normal Mood & Affect: anxious; Negative for depressed or tearful Skin no rashes or lesions noted and no wounds MDM MDM MDM Narrative Medical decision making narrative: Differential diagnosis includes but not limited to esophagitis esophageal pain acute coronary syndrome aortic dissection pneumothorax gastritis GERD Patient's EKG is nonischemic. My independent interpretation the chest x-ray is no acute process. Troponin is 6 white count 5.6 hemoglobin 13.6 BMP shows potassium 3.2 Clinically this sounds more esophageal in nature than cardiac or other intrathoracic emergency. Patient has follow-up in just a couple days with gastroenterology. Him and have her follow-up with them. Patient to return if worsening or concerns History & Record Review Discussion w/independent historian: Patient Lab Data Attestation: I reviewed the patient's lab results. Labs: Laboratory Results - last 24 hr 09/02/24 10:40 WBC 5.6 RBC 4.68 Hgb 13.6 Hct 40.9 MCV 87.4 MCH 29.1 MCHC 33.3 RDW Std Deviation 43.4 RDW Coeff of Dona 13.5 Plt Count 244 MPV 10.5 Immature Gran % (Auto) 0.900 Neut % (Auto) 39.1 L Lymph % (Auto) 47.3 H Overton % (Auto) 6.5 Eos % (Auto) 4.9 Baso % (Auto) 1.3 H Absolute Neuts (auto) 2.2 Absolute Lymphs (auto) 2.63 Nucleated RBC % 0 Sodium 137 Potassium 3.2 L Chloride 107 Carbon Dioxide 24.0 Anion Gap 6 BUN 8 Creatinine 0.67 Estim Creat Clear Calc 78.82 Est GFR (MDRD) Af Amer 117 Est GFR (MDRD) Non-Af 97 BUN/Creatinine Ratio 12.0 Glucose 90 Calcium 9.5 Troponin I High Sens 6 Radiography Diagnostic Testing: Clinical Impression(s) from Imaging Studies Chest X-Ray 09/02/24 10:45 IMPRESSION: No acute pulmonary process, no interval change Electronically Signed: Reji Story MD at 10:57 EDT , EKG Initial EKG: Attestation: I personally reviewed and interpreted this EKG as follows: Comments: Sinus rhythm with PACs ventricular rate of 68 bpm. Discharge Plan Triage Chief Complaint: Chest Pain ED Provider: Alhaji Ceja Dx/Rx/DC Orders Clinical Impression: Chest pain, Mcdermott's esophagus Instructions: ED Chest Pain, Noncardiac Prescriptions: No Action aspirin [Adult Low Dose Aspirin] 81 mg tablet,delayed release (DR/EC) 81 mg PO QODAY Rx Instructions: 81 mg PO; 3x week lamotrigine 25 mg tablet 25 mg PO DAILY fluoxetine 20 mg capsule 20 mg PO QDAY cholecalciferol (vitamin D3) [Vitamin D3] 50 mcg (2,000 unit) capsule 50 mcg PO QDAY ezetimibe [Zetia] 10 mg tablet 10 mg PO DAILY Qty: 90 3RF Breztri Aerosphere 160-9-4.8 mcg/actuation HFA aerosol inhaler 2 inh inhalation BID Qty: 3 3RF fluticasone propionate [Flonase Allergy Relief] 50 mcg/actuation spray,suspension 2 spray intranasal DAILY PRN (Reason: Allergy Symptoms) Rx Instructions: administer into each nostril lorazepam 0.5 mg tablet 0.5 mg PO DAILY PRN (Reason: anxiety) Patient Comments: Take 1 tablet by mouth once daily as needed for up to 30 days. magnesium 200 mg tablet 200 mg PO QWEEK lidocaine [Lidoderm] 5 % adhesive patch,medicated 1 patch topical DAILY Qty: 7 0RF Rx Instructions: leave on most painful area for up to 12 hrs cyclobenzaprine 10 mg tablet 10 mg PO TID PRN (Reason: Muscle Spasm) Qty: 15 0RF (DME) spacer See Rx Instructions .ROUTE .MEDSUPPLY Qty: 1 0RF Rx Instructions: As directed potassium chloride 20 mEq tablet extended release 20 meq PO .QOD Qty: 30 6RF albuterol sulfate [Ventolin HFA] 90 mcg/actuation HFA aerosol inhaler 2 inh inhalation Q6H PRN (Reason: shortness of breath or wheezing) Qty: 8.5 11RF hydrochlorothiazide 25 mg tablet 25 mg PO DAILY Qty: 30 11RF doxazosin 1 mg tablet 1 mg PO DAILY Qty: 90 3RF lubiprostone [Amitiza] 24 mcg capsule 24 mcg PO BID 30 Days Qty: 180 2RF Primary Care Provider: Ellis Crandall Referrals: Ellis Crandall MD [Primary Care Provider] - Friend,DO Aime [Med Staff - Active Staff] - Keep Bianca appointment Print Language: Citizen Of [place] Disposition Disposition: Home, Self Care
--- NOTE | 2024-09-02 10:45 | RAD_ITS ---
STUDY: X-RAY CHEST REASON FOR EXAM: Female, 59 years old. Atypical chest pain TECHNIQUE: Single AP portable view of the chest. COMPARISON: 06/17/2024 FINDINGS: The lungs are clear and expanded. There is no demonstrated pleural abnormality. Normal size heart. Normal mediastinum and kirsten. Normal visualized pulmonary arteries. There is atherosclerotic calcification of the aortic arch with tortuosity. There are diffuse degenerative changes of the visualized thoracic spine. Normal visualized ribs, clavicles, and shoulders. There is no demonstrated abnormality of the visualized soft tissue structures of the upper abdomen. RAD/Chest 1 View (Portable) IMPRESSION: No acute pulmonary process, no interval change Electronically Signed: Reji Story MD at 10:57 EDT ,
[2024-09-02 10:59] LABS: Absolute Lymphocyte Count 2.63 X10^3/uL (0.83-4.51); Absolute Neutrophil Count 2.2 X10^3/uL (2.0-7.7); Basophil# 0.07 X10^3/uL; Basophil% 1.3 % (0-1); Eosinophil# 0.27 X10^3/uL; Eosinophils% 4.9 % (0-5); Hematocrit 40.9 % (37-47); Hemoglobin 13.6 g/dL (12.0-15.0); Lymphocyte # 2.63 X10^3/ul (0.83-4.51); Lymphocyte % 47.3 % (19-41); Mean Corp Hgb Conc 33.3 g/dL (32-36); Mean Corpuscular Hgb 29.1 pg (27.0-32.0); Mean Corpuscular Volume 87.4 fL (81-99); Mean Platelet Vol. 10.5 fl (6.2-12.0); Monocyte# 0.36 X10^3/uL; Monocyte% 6.5 % (0-10); NRBC Flagged by Analyzer 0 % (0-5); Neutrophil # 2.18 X10^3/uL (2.7-7.7); Neutrophil % 39.1 % (47-70); Platelet Count 244 K/mm3 (150-450); RBC Distribution Width CV 13.5 % (11.6-14.6); RBC Distribution Width SD 43.4 fl (35.1-43.9); Red Blood Count 4.68 M/mm3 (4.2-5.4); White Blood Count 5.6 K/mm3 (4.4-11.0)
[2024-09-02 11:21] LABS: Anion Gap 6 (5-15); BUN 8 mg/dL (7-18); Calcium,Total 9.5 mg/dL (8.5-10.1); Chloride 107 mmol/L (98-107); Creatinine, Serum 0.67 mg/dL (0.55-1.02); EST Glomerular Filtration Rate 97 mL/min (>60); Est Glom Filt Rate - Afr Amer 117 mL/min (>60); Estimated Creatinine Clearance 78.82 ml/min; Glucose 90 mg/dL (74-106); Potassium 3.2 mmol/L (3.5-5.1); Sodium Level 137 mmol/L (136-145); Troponin-I HS 6 pg/mL (3.0-54.0)
[2024-09-02 11:23] VITALS: BP 140/86; PULSE 63
[2024-09-02 11:37] VITALS: BP 127/83; PULSE 82; RESP 16; TEMP 36.3; O2SAT 96
== END 2024-09-02 11:38 | disposition home or self-care (01) ==
PROVIDERS: Emergency Provider Emergency Medicine; PCP Family Medicine; Visit Provider Emergency Medicine
DX: R07.9 Chest pain, unspecified (principal); J44.89 Other specified chronic obstructive pulmonary disease; F17.210 Nicotine dependence, cigarettes, uncomplicated; I25.10 Atherosclerotic heart disease of native coronary artery without angina pectoris; K22.70 Barrett's esophagus without dysplasia; Z95.5 Presence of coronary angioplasty implant and graft; I10 Essential (primary) hypertension; E78.00 Pure hypercholesterolemia, unspecified; I25.2 Old myocardial infarction; Z79.82 Long term (current) use of aspirin; Z79.51 Long term (current) use of inhaled steroids; F41.9 Anxiety disorder, unspecified; Z79.899 Other long term (current) drug therapy; F32.A Depression, unspecified
CPT/HCPCS: 71045; 80048; 84484; 85025; 93005; 99284; A4216

== ENCOUNTER → 2024-09-03 | Outpatient (CLI) | payer MEDICARE, MEDICAID, SELFPAY ==
--- NOTE | 2024-09-03 09:10 | RAD_ITS ---
EXAM: XR ABDOMEN, 1 VIEW CLINICAL INDICATION: constipation TECHNIQUE: Frontal supine view of the abdomen/pelvis. COMPARISON: No relevant prior studies available. FINDINGS: LOWER THORAX: No acute pathology. GASTROINTESTINAL TRACT: There is moderate stool in the ascending and transverse colon. Non-obstructive. No bowel or stomach distention. ORGANS: Unremarkable as visualized. No organomegaly. No abnormal calcifications. BONES/JOINTS: No acute pathology. SOFT TISSUES: No acute pathology. RAD/Abdomen Single View IMPRESSION: Moderate stool in ascending and transverse colon compatible with constipation. Electronically Signed: Francis Schulz MD at 20:18 EDT ,
[2024-09-03 10:29] LABS: AST(SGOT) 16 U/L (15-37); Alanine Aminotransfer ALT/SGPT 15 U/L (13-56); Albumin, Serum 3.6 g/dL (3.2-5.0); Alkaline Phosphatase 65 U/L (45-117); Anion Gap 4 (5-15); BUN 11 mg/dL (7-18); BUN/Creat Ratio 16.1 RATIO (10-20); Calcium,Total 10.5 mg/dL (8.5-10.1); Chloride 105 mmol/L (98-107); Creatinine, Serum 0.68 mg/dL (0.55-1.02); EST Glomerular Filtration Rate 94 mL/min (>60); Est Glom Filt Rate - Afr Amer 114 mL/min (>60); Globulin 3.5 g/dL (2.2-4.2); Glucose 93 mg/dL (74-106); Lipase 37 U/L (13-75); Potassium 4.1 mmol/L (3.5-5.1); Protein, Total 7.1 g/dL (6.4-8.2); Sodium Level 137 mmol/L (136-145)
== END | disposition home or self-care (01) ==
LOC: RAD 09:02
PROVIDERS: PCP Family Medicine; Referring Provider Student in an Organized Health Care Education/Training Program; Visit Provider Student in an Organized Health Care Education/Training Program
DX: R10.13 Epigastric pain (principal); K59.00 Constipation, unspecified
CPT/HCPCS: 36415; 74018; 80053; 83690

== ENCOUNTER 2024-09-04 15:05 | Emergency (ER) | payer MEDICARE, MEDICAID, SELFPAY ==
[2024-09-04 15:06] VITALS: BP 161/97; PULSE 72; RESP 16; TEMP 36.8; O2SAT 100; BMI 25.3
--- NOTE | 2024-09-04 16:02 | CT_ITS ---
INDICATION: abdominal pain -- IV PO Contrast EXAMINATION: CT ABDOMEN AND PELVIS with CONTRAST - CT Abdomen And Pelvis W/ Contrast Injection TECHNIQUE: Multiple axial images were obtained of the abdomen and pelvis following administration of IV contrast. Planar reconstructions obtained. A radiation dose optimization technique was used for this scan. RADIATION DOSAGE (If Supplied By Facility): CTDIvol = ( 12.37 ) mGy, DLP = ( 394.40 ) mGycm IV Contrast dosage and agent: 100 mL [id number]-370 Oral contrast: Oral contrast is present. COMPARISON: No pertinent previous studies for comparison.. FINDINGS: LOWER CHEST: 1. Lung bases are clear. 2. No cardiomegaly or pericardial effusion. 3. No significant coronary vascular calcifications. HEPATOBILIARY: Liver: Liver is normal in size configuration however multiple benign hepatic cysts are present. Largest in the RIGHT hepatic lobe measures 4.0 x 3.0 cm. Multiple smaller cysts are present in all hepatic segments. No solid masses noted.. Gallbladder: The gallbladder is unremarkable. Pancreas: Pancreas is normal size configuration and density. No mass is noted. Spleen: The spleen is homogeneous and normal in size. . BOWEL: Stomach: Stomach is normal configuration, there is a moderate wall thickening at the pylorus. No distinct masses noted. Bowel: Small and large have normal configuration, no masses or bowel obstruction noted. There is a moderate to large amount retained formed stool throughout the colon. Appendix: The visualized appendix has normal appearance.: GENITOURINARY: Adrenals: Both adrenal glands are normal in size. Kidneys: Kidneys appear symmetric in size. No calcifications are seen in the collecting system. There is no hydronephrosis or surrounding fluid. Bladder: Normal Pelvic organs: The visualized pelvic organs are normal in size and configuration. No masses or adenopathy noted. RETROPERITONEUM: Diffuse aortic desiccation are present without aneurysmal dilatation. LYMPH NODES: No evidence of retroperitoneal or para-aortic masses fluid collections or adenopathy. PERITONEAL CAVITY: No ascites noted ANTERIOR ABDOMINAL WALL: Normal, no hernia identified. BONES AND SOFT TISSUES: The skeleton shows no evidence for fractures or destructive lesions. OTHER: None CT/Abdomen/Pelvis WITH Contrast IMPRESSION: 1. No masses bowel obstruction abscess free fluid or free air. 2. Diffuse wall thickening of the pyloric portion of the stomach. No distinct masses noted. Findings are nonspecific. 3. Moderate to large amount retained formed stool throughout the colon, developing or residual constipation is a consideration. 4. No evidence of appendicitis or diverticulitis. 5. No evidence of renal calcification or obstructive uropathy. 6. No evidence cholelithiasis. 7. Multiple benign hepatic cysts. Electronically Signed: Oscar Chand MD at 18:33 EDT ,
--- NOTE | 2024-09-04 16:03 | ED.VIS.GI ---
HPI HPI - GI History of Present Illness Chief Complaint: Abd Pain Detail of Chief Complaint: Abdominal pain and constipation Informant: patient Narrative Narrative: Patient presents to the emergency department with complaint of abdominal pain and constipation. Patient states that she has been dealing with it for 7 weeks. Patient states that she had 2 colonoscopy preps this week and has had no stool with that and also took Ex-Lax without any results. Patient tells me she has not had a bowel movement in 7 weeks. Patient sees gastroenterology Dr. Magaña. Patient spoke with Dr. Magaña's nurse today and was advised to come to the ER to have a CT scan with IV contrast to evaluate for ischemic colitis. Patient has dysmotility. She has had multiple colonoscopies in the past. She has history of Mcdermott's esophagitis. She denies fever. She denies vomiting. She denies urinary symptoms. [facility] Medical History Rheumatoid arthritis High cholesterol Edentulous Smoker Emphysema, unspecified History of stress test Cardiology follow-up encounter Ulcerative colitis History of non-ST elevation myocardial infarction (NSTEMI) (08/10/21) Barretts esophagus Chronic constipation Irritable bowel syndrome with diarrhea Takotsubo cardiomyopathy (08/10/21) Post-menopausal Wears glasses Back pain Difficulty swallowing Gastric reflux Shortness of breath on exertion Leg cramps History of Holter monitoring History of echocardiogram Eloped from emergency department Intermittent palpitations Chest pain, non-cardiac Abdominal pain Depression Former smoker Myocardial infarct Asthma-COPD overlap syndrome Chest pain of uncertain etiology Headache Anxiety disorder Chronic left-sided thoracic back pain Adverse drug reaction COPD (chronic obstructive pulmonary disease) Shortness of breath 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) Ischemic cardiomyopathy Nicotine dependence Essential (primary) hypertension History of ST elevation myocardial infarction (STEMI) (12/18/20) Atherosclerotic heart disease of [place] coronary artery without angina pectoris GERD (gastroesophageal reflux disease) Borderline personality disorder Bipolar affective disorder Home Medications ?Medication ?Instructions ?Recorded ?Last Taken ?Type aspirin 81 mg tablet,delayed 81 mg PO QODAY HEALTH MAINTENANCE 07/13/21 08/31/23 History release (Adult Low Dose Aspirin) fluticasone propionate 50 2 spray intranasal DAILY PRN 10/29/21 Unknown History mcg/actuation nasal Allergy Symptoms spray,suspension (Flonase Allergy Relief) spacer #1 ea 05/23/22 Unknown Rx lorazepam 0.5 mg tablet 0.5 mg PO DAILY PRN anxiety 09/04/23 Unknown History potassium chloride 20 mEq 20 meq PO .QOD #30 tabs 04/03/24 Unknown Rx tablet,extended release cholecalciferol (vitamin D3) 50 50 mcg PO QDAY 04/09/24 Unknown History mcg (2,000 unit) capsule (Vitamin D3) ezetimibe 10 mg tablet (Zetia) 10 mg PO DAILY #90 tabs 04/09/24 Unknown Rx fluoxetine 20 mg capsule 20 mg PO QDAY 04/09/24 Unknown History lamotrigine 25 mg tablet 25 mg PO DAILY 04/09/24 Unknown History magnesium 200 mg tablet 200 mg PO QWEEK 04/09/24 Unknown History albuterol sulfate 90 mcg/actuation 2 inh inhalation Q6H PRN shortness 05/11/24 Unknown Rx aerosol inhaler (Ventolin HFA) of breath or wheezing #8.5 grams cyclobenzaprine 10 mg tablet 10 mg PO TID PRN Muscle Spasm #15 06/17/24 Unknown Rx TABLETS lidocaine 5 % topical patch 1 patch topical DAILY #7 ea 06/17/24 Unknown Rx (Lidoderm) hydrochlorothiazide 25 mg tablet 25 mg PO DAILY #30 tabs 06/19/24 Unknown Rx doxazosin 1 mg tablet 1 mg PO DAILY #90 tabs 06/22/24 Unknown Rx Amitiza 24 mcg capsule 24 mcg PO BID 30 days #180 caps 06/30/24 Unknown Rx (lubiprostone) budesonide 160 mcg-glycopyr 9 2 inh inhalation BID #3 ea 08/04/24 Unknown Rx mcg-formot 4.8 mcg/actuation HFA inhaler (Breztri Aerosphere) Allergy/AdvReac Type Severity Reaction Status Date / Time morphine Allergy Hives Verified 09/04/24 15:08 amlodipine AdvReac Intermediate chest Verified 09/04/24 15:08 pain and cannot breathe carvedilol (From Coreg) AdvReac Intermediate throat Verified 09/04/24 15:08 closing up and chest pressure citalopram (From Celexa) AdvReac NAUSEATED Verified 09/04/24 15:08 AND IRRITABLE lisinopril AdvReac SOB, chest Verified 09/04/24 15:08 tightness,throat closing venlafaxine (From Effexor) AdvReac DIDN'T Verified 09/04/24 15:08 WORK Family History Father CAD (coronary artery disease) Myocardial infarction Surgical History History of esophagogastroduodenoscopy (EGD) History of cardiac catheterization (08/11/21) H/O section History of left heart catheterization (05/17/21) History of coronary artery stent placement (12/18/20) Social History household members: none Smoking Status: Current every day smoker tobacco type: cigarettes alcohol intake: never substance use type: does not use caffeine: Yes Type: coffee Number of servings: 2 ROS ROS ED Review of Systems ROS Unobtainable: other Constitutional Constitutional ED: Reports lethargy; Denies chills, fever(s), sweats or weight loss Eyes Eyes: Denies blurry vision, change in vision or diplopia ENT ENT ED: Denies rhinorrhea or sore throat Cardiovascular Cardiovascular: Denies chest pain, orthopnea or racing heartbeat Respiratory/Chest Respiratory/Chest: Reports dyspnea and dyspnea on exertion; Denies cough, orthopnea or sputum Gastrointestinal Gastrointestinal: Reports abdominal pain and constipation; Denies diarrhea, nausea or vomiting Genitourinary Genitourinary ED: Denies dysuria, hematuria or urinary frequency Musculoskeletal Musculoskeletal: Denies arthralgias, back pain, myalgias or neck pain Integumentary Denies abscess, Abrasions or rash Neurologic Neurologic: Denies headache(s) or weakness Psychiatric Psychiatric: Denies anxiety, depression or suicidal thoughts Endocrine Endocrinology: Denies polydipsia, polyphagia or polyuria Hematologic/Lymphatic Hematologic/Lymphatic: Denies easy bleeding, easy bruising or lymphadenopathy Allergic/Immunologic Allergic/Immunologic ED: Denies mouth swelling, tongue swelling or urticaria EXAM Physical Exam Const Vital Signs: 09/04/24 15:06 09/04/24 17:05 Temperature 98.2 F Temperature Source Oral Pulse Rate 72 77 Respiratory Rate 16 19 H Blood Pressure 161/97 H 156/78 H Blood Pressure Mean 118 104 Pulse Ox 100 97 Oxygen Delivery Method Room Air Positive well nourished and well developed General Appearance ED: well developed and NAD HEENT Reports TM's clear and moist mucous membranes normocephalic and atraumatic; Negative for trauma or tenderness Tympanic Membrane ED: Yes TM's clear Eyes PERRL and EOMs intact bilaterally General Eye ED: Negative for pale conjunctiva or scleral icterus Neck no lymphadenopathy, supple and no JVD General: Negative for tenderness Chest Wall inspection of chest normal and palpation of chest normal Chest: Negative for tenderness Resp normal respiratory effort and clear to auscultation bilaterally Effort and Inspection: Negative for respiratory distress or pain with movement Auscultation: Negative for rhonchi, wheezes or diminished lung sounds Cardio regular rate, regular rhythm, S1 normal heart sound, S2 normal heart sound and no murmurs Peripheral Pulses: pulses 2+ throughout GI normal to inspection, nondistended, normoactive bowel sounds, soft to palpation, non-distended and no masses GI Narrative: Mild diffuse tenderness. There is no rebound, rigidity, or peritoneal signs. No mass palpated. Rectal exam performed. There is no impaction. There was brown stool that was soft. Back/Spine no CVA tenderness and no thoracic nor lumbar tenderness Extremity normal to inspection General Extremety ED: Negative for edema General Extremity: Negative for edema Neuro oriented x3, CN's II-XII intact bilaterally, no sensory deficits noted and gait normal Sensorium / Orientation: awake, alert, oriented to person, oriented to place and oriented to time Motor Exam: strength 5/5 throughout and strength abnormal Psych mental status grossly normal Skin no rashes or lesions noted and no wounds MDM MDM MDM Narrative Medical decision making narrative: Patient presents to the emergency department with constipation and abdominal pain and states that she was sent in to have rule out for ischemic colitis. She tells me she has not had a bowel movement in 7 days and normally she goes once a month. She has been seen by GI. She has tried colonoscopy preps at home x 2 today and Ex-Lax and not get any relief. Clinically she looks well. Abdomen is not distended and rectal exam shows no evidence of impaction. IV line established. CBC with differential obtained showing a 6.7 with hemoglobin 13.7 and platelet count of 257. Chemistries unremarkable. Other than a slightly depressed potassium at 3.3 for which I will give her 40 mEq of potassium chloride p.o. Lactate was normal at 0.5. Urinalysis was normal. CT scan of the abdomen pelvis showed moderate to large amount of stool throughout the colon consistent with constipation there was no evidence for bowel obstruction abscess or free fluid or free air. She had diffuse wall thickening of the pyloric portion of the stomach. Discussed results with patient. She does not want an enema here. Discussed case with gastroenterology Dr. Magaña and he has no further recommendations at this time. Advised to follow-up with the office within the next 5 to 7 days. Lab Data Attestation: I reviewed the patient's lab results. Labs: Laboratory Results - last 24 hr 09/04/24 09/04/24 09/04/24 15:38 16:30 16:46 WBC 6.7 RBC 4.77 Hgb 13.7 Hct 41.5 MCV 87.0 MCH 28.7 MCHC 33.0 RDW Std Deviation 43.1 RDW Coeff of Dona 13.4 Plt Count 257 MPV 11.5 Immature Gran % (Auto) 0.100 Neut % (Auto) 47.2 Lymph % (Auto) 39.9 Wheeler % (Auto) 7.8 Eos % (Auto) 4.0 Baso % (Auto) 1.0 Absolute Neuts (auto) 3.2 Absolute Lymphs (auto) 2.67 Nucleated RBC % 0 Sodium 136 Potassium 3.3 L Chloride 103 Carbon Dioxide 27.0 Anion Gap 6 BUN 11 Creatinine 0.76 Estim Creat Clear Calc 70.28 Est GFR (MDRD) Af Amer 101 Est GFR (MDRD) Non-Af 83 BUN/Creatinine Ratio 14.5 Glucose 89 Lactic Acid 0.5 Calcium 9.4 Total Bilirubin 0.40 AST 13 L ALT 17 Alkaline Phosphatase 64 Total Protein 7.2 Albumin 3.8 Globulin 3.4 Albumin/Globulin Ratio 1.1 Urine Color Straw Urine Clarity Clear Urine pH 7.0 Ur Specific [place] 1.010 Urine Protein Negative Urine Glucose (UA) Normal Urine Ketones Negative Urine Occult Blood Negative Urine Nitrite Negative Urine Bilirubin Negative Urine Urobilinogen Normal Ur Leukocyte Esterase Negative Urine RBC 0 SEEN Urine WBC 0 SEEN Ur Squamous Epith Cells 0 SEEN Urine Bacteria 0 SEEN Urine Mucus 0 SEEN Radiography Diagnostic Testing: Clinical Impression(s) from Imaging Studies Abdomen/Pelvis CT 09/04/24 16:02 IMPRESSION: 1. No masses bowel obstruction abscess free fluid or free air. 2. Diffuse wall thickening of the pyloric portion of the stomach. No distinct masses noted. Findings are nonspecific. 3. Moderate to large amount retained formed stool throughout the colon, developing or residual constipation is a consideration. 4. No evidence of appendicitis or diverticulitis. 5. No evidence of renal calcification or obstructive uropathy. 6. No evidence cholelithiasis. 7. Multiple benign hepatic cysts. Electronically Signed: Oscar Chand MD at 18:33 EDT , Discharge Plan Triage Chief Complaint: Abd Pain Other Complaint: Constipation ED Provider: Fely Hinds Dx/Rx/DC Orders Clinical Impression: Abdominal pain, Constipation Instructions: ED Abdominal Pain Unkn Cause Fem, ED Constipation (Adult) Prescriptions: No Action aspirin [Adult Low Dose Aspirin] 81 mg tablet,delayed release (DR/EC) 81 mg PO QODAY Rx Instructions: 81 mg PO; 3x week lamotrigine 25 mg tablet 25 mg PO DAILY fluoxetine 20 mg capsule 20 mg PO QDAY cholecalciferol (vitamin D3) [Vitamin D3] 50 mcg (2,000 unit) capsule 50 mcg PO QDAY ezetimibe [Zetia] 10 mg tablet 10 mg PO DAILY Qty: 90 3RF Breztri Aerosphere 160-9-4.8 mcg/actuation HFA aerosol inhaler 2 inh inhalation BID Qty: 3 3RF fluticasone propionate [Flonase Allergy Relief] 50 mcg/actuation spray,suspension 2 spray intranasal DAILY PRN (Reason: Allergy Symptoms) Rx Instructions: administer into each nostril lorazepam 0.5 mg tablet 0.5 mg PO DAILY PRN (Reason: anxiety) Patient Comments: Take 1 tablet by mouth once daily as needed for up to 30 days. magnesium 200 mg tablet 200 mg PO QWEEK lidocaine [Lidoderm] 5 % adhesive patch,medicated 1 patch topical DAILY Qty: 7 0RF Rx Instructions: leave on most painful area for up to 12 hrs cyclobenzaprine 10 mg tablet 10 mg PO TID PRN (Reason: Muscle Spasm) Qty: 15 0RF (DME) spacer See Rx Instructions .ROUTE .MEDSUPPLY Qty: 1 0RF Rx Instructions: As directed potassium chloride 20 mEq tablet extended release 20 meq PO .QOD Qty: 30 6RF albuterol sulfate [Ventolin HFA] 90 mcg/actuation HFA aerosol inhaler 2 inh inhalation Q6H PRN (Reason: shortness of breath or wheezing) Qty: 8.5 11RF hydrochlorothiazide 25 mg tablet 25 mg PO DAILY Qty: 30 11RF doxazosin 1 mg tablet 1 mg PO DAILY Qty: 90 3RF lubiprostone [Amitiza] 24 mcg capsule 24 mcg PO BID 30 Days Qty: 180 2RF Primary Care Provider: Ellis Crandall Referrals: Ellis Crandall MD [Primary Care Provider] - Aime Magaña DO [Med Staff - Active Staff] - 5-7 Days Print Language: Yi Disposition Disposition: Home, Self Care
[2024-09-04 16:38] LABS: Absolute Lymphocyte Count 2.67 X10^3/uL (0.83-4.51); Absolute Neutrophil Count 3.2 X10^3/uL (2.0-7.7); Basophil# 0.07 X10^3/uL; Eosinophil# 0.27 X10^3/uL; Hematocrit 41.5 % (37-47); Hemoglobin 13.7 g/dL (12.0-15.0); Lymphocyte # 2.67 X10^3/ul (0.83-4.51); Lymphocyte % 39.9 % (19-41); Mean Corpuscular Hgb 28.7 pg (27.0-32.0); Mean Platelet Vol. 11.5 fl (6.2-12.0); Monocyte# 0.52 X10^3/uL; Monocyte% 7.8 % (0-10); NRBC Flagged by Analyzer 0 % (0-5); Neutrophil # 3.15 X10^3/uL (2.7-7.7); Neutrophil % 47.2 % (47-70); Platelet Count 257 K/mm3 (150-450); RBC Distribution Width CV 13.4 % (11.6-14.6); RBC Distribution Width SD 43.1 fl (35.1-43.9); Red Blood Count 4.77 M/mm3 (4.2-5.4); White Blood Count 6.7 K/mm3 (4.4-11.0)
[2024-09-04 16:47] LABS: Bacteria 0 SEEN /hpf (None Seen); Mucous, Urine 0 SEEN /hpf (<or=2+); Red Blood Cells-Urine 0 SEEN /hpf (0-5); Squamous Epithelial Cells - UA 0 SEEN /hpf (5-10); White Blood Cells 0 SEEN /hpf (0-5)
[2024-09-04 16:50] LABS: Color, Urine Straw (Yellow); Glucose, Dipstick Normal (Normal); Ketone-Dipstick Negative (Negative); Leukocyte Esterase-Dipstick Negative /ul (Negative); Nitrite-Dipstick Negative (Negative); Occult Blood-Urine Negative /ul (Negative); Protein-Dipstick Negative (Negative); Urine Bilirubin Dipstick Negative (Negative); Urine Clarity Clear (Clear); Urine Urobilinogen Normal (Normal)
[2024-09-04 17:04] LABS: Lactic Acid 0.5 mmol/L (0.4-1.9)
[2024-09-04 17:05] VITALS: BP 156/78; PULSE 77; RESP 19; O2SAT 97
[2024-09-04 17:12] LABS: ALB/GLOB Ratio 1.1 RATIO (0.9-2.4); AST(SGOT) 13 U/L (15-37); Alanine Aminotransfer ALT/SGPT 17 U/L (13-56); Albumin, Serum 3.8 g/dL (3.2-5.0); Alkaline Phosphatase 64 U/L (45-117); Anion Gap 6 (5-15); BUN 11 mg/dL (7-18); BUN/Creat Ratio 14.5 RATIO (10-20); Calcium,Total 9.4 mg/dL (8.5-10.1); Chloride 103 mmol/L (98-107); Creatinine, Serum 0.76 mg/dL (0.55-1.02); EST Glomerular Filtration Rate 83 mL/min (>60); Est Glom Filt Rate - Afr Amer 101 mL/min (>60); Estimated Creatinine Clearance 70.28 ml/min; Globulin 3.4 g/dL (2.2-4.2); Glucose 89 mg/dL (74-106); Potassium 3.3 mmol/L (3.5-5.1); Protein, Total 7.2 g/dL (6.4-8.2); Sodium Level 136 mmol/L (136-145)
[2024-09-04 19:16] VITALS: BP 156/78; PULSE 77; RESP 19; TEMP 36.1; O2SAT 97
== END 2024-09-04 19:19 | disposition home or self-care (01) ==
PROVIDERS: Emergency Provider Emergency Medicine; PCP Family Medicine; Referring Provider Emergency Medicine; Visit Provider Emergency Medicine
DX: R10.9 Unspecified abdominal pain (principal); J44.9 Chronic obstructive pulmonary disease, unspecified; I10 Essential (primary) hypertension; I25.10 Atherosclerotic heart disease of native coronary artery without angina pectoris; K59.00 Constipation, unspecified; F17.210 Nicotine dependence, cigarettes, uncomplicated; E78.00 Pure hypercholesterolemia, unspecified; I25.2 Old myocardial infarction; Z79.82 Long term (current) use of aspirin; Z79.51 Long term (current) use of inhaled steroids; F41.9 Anxiety disorder, unspecified; Z79.899 Other long term (current) drug therapy; F32.A Depression, unspecified; Z95.5 Presence of coronary angioplasty implant and graft
CPT/HCPCS: 74177; 80053; 81001; 83605; 85025; 99282; Q9967; A4216

== ENCOUNTER → 2024-10-01 | Outpatient (CLI) | payer MEDICARE, MEDICAID, SELFPAY | END | disposition home or self-care (01) | LOC: CVS 10:45 | PROVIDERS: PCP Family Medicine; Referring Provider Nurse Practitioner Family; Visit Provider Nurse Practitioner Family | DX: R07.9 Chest pain, unspecified (principal); M54.9 Dorsalgia, unspecified | CPT/HCPCS: 93306 ==

== ENCOUNTER → 2024-11-05 | Outpatient (CLI) | payer MEDICARE, MEDICAID, SELFPAY ==
--- NOTE | 2024-11-05 10:12 | MRI_ITS ---
EXAM: MR ABDOMEN WITHOUT INTRAVENOUS CONTRAST, MRCP PROTOCOL CLINICAL INDICATION: pancreatic duct dilation TECHNIQUE: Multiplanar and multisequence MR images of the abdomen without intravenous contrast obtained with MRCP sequence. Three-dimensional post-processing reconstructions were performed. COMPARISON: CT scan of the abdomen and pelvis 10/05/2024. FINDINGS: LOWER THORAX: Unremarkable. No pleural effusion. LIVER: Multiple hepatic cysts unchanged since prior CT. GALLBLADDER AND BILE DUCTS: Unremarkable. No gallstones. No gallbladder distention or wall edema. No intra- or extrahepatic biliary ductal dilation. No choledochal filling defect. PANCREAS: Unremarkable. No focal cystic mass. Normal pancreas and pancreatic duct. SPLEEN: Unremarkable. Non-enlarged. ADRENALS: Unremarkable. No nodules. KIDNEYS AND URETERS: Unremarkable. Normal renal size and position. No hydronephrosis. INTRAPERITONEAL SPACE: Unremarkable. No ascites or other fluid collection. VASCULATURE: Unremarkable. Abdominal aorta is non-dilated. LYMPH NODES: No enlarged lymph nodes. MRI/MRCP Abdomen without Contrast IMPRESSION: 1. Normal pancreas and pancreatic duct. 2. No acute abdominal pelvic abnormality. 3. Multiple hepatic cysts unchanged since prior CT. Electronically Signed: Phil Georges MD at 4:10 EST ,
== END | disposition home or self-care (01) ==
PROVIDERS: PCP Family Medicine; Referring Provider Internal Medicine Gastroenterology; Visit Provider Internal Medicine Gastroenterology
DX: K86.89 Other specified diseases of pancreas (principal)
CPT/HCPCS: 74181

== ENCOUNTER 2024-12-22 02:41 | Emergency (ER) | payer MEDICARE, MEDICAID, SELFPAY ==
[2024-12-22 02:43] VITALS: BP 150/74; PULSE 114; RESP 18; TEMP 36.9; O2SAT 95
--- NOTE | 2024-12-22 02:45 | EKG12_ITS ---
Test Reason : CP/SOB Blood Pressure : */* mmHG Vent. Rate : 109 BPM Atrial Rate : 109 BPM P-R Int : 142 ms QRS Dur : 90 ms QT Int : 326 ms P-R-T Axes : 76 75 57 degrees QTcB Int : 439 ms Sinus tachycardia Otherwise normal ECG Confirmed by GARLAND KING, ALEX ([id number]), editor farm journal FILI CASTILLO ([id number]) on 12/23/2024 6:31:12 AM Referred By: CHRISTIAN Confirmed By: ALEX HAQUE MD
[2024-12-22] MEDS: Orphenadrine 100 MG Tablet PO (03:22)
[2024-12-22] MEDS: Ondansetron ODT 4 MG Tablet PO (03:23)
[2024-12-22] MEDS: oxyCODONE 5 MG Tablet PO (03:24)
--- NOTE | 2024-12-22 03:40 | RAD_ITS ---
INDICATION: cough EXAMINATION/TECHNIQUE: X-RAY - XR Chest 2 Views COMPARISON: Prior study dated: 09/02/2024 FINDINGS: LINES/DEVICES: None. LUNGS: No consolidation. No pneumothorax. MEDIASTINUM: Unremarkable. CARDIAC SILHOUETTE: Not enlarged. BONES AND SOFT TISSUES: No acute abnormalities. RAD/Chest PA and Lateral IMPRESSION: No evidence of active intrathoracic disease. Electronically Signed: Kaylee Andersen MD at 5:15 EST ,
--- NOTE | 2024-12-22 04:39 | EX.ED.DYSGE1 ---
HPI History of Present Illness Chief Complaint: General Illness Informant: patient Narrative Narrative: Patient is a 59-year-old female with past medical history of hypertension asthma and COPD. She states that she does not require supplemental oxygen at baseline secondary to her lung disorder and also reports that she continues to smoke. She states that today around 10 AM she began to sneeze and then cough and since that time she has had headache and fatigue and muscle aches and nausea. She states that her symptoms have worsened throughout the day and with concern for infection she presents for evaluation [facility] Medical History Rheumatoid arthritis High cholesterol Edentulous Smoker Emphysema, unspecified History of stress test Cardiology follow-up encounter Ulcerative colitis History of non-ST elevation myocardial infarction (NSTEMI) (08/10/21) Barretts esophagus Chronic constipation Irritable bowel syndrome with diarrhea Takotsubo cardiomyopathy (08/10/21) Post-menopausal Wears glasses Back pain Difficulty swallowing Gastric reflux Shortness of breath on exertion Leg cramps History of Holter monitoring History of echocardiogram Eloped from emergency department Intermittent palpitations Chest pain, non-cardiac Abdominal pain Depression Former smoker Myocardial infarct Asthma-COPD overlap syndrome Chest pain of uncertain etiology Headache Anxiety disorder Chronic left-sided thoracic back pain Adverse drug reaction COPD (chronic obstructive pulmonary disease) Shortness of breath 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) Ischemic cardiomyopathy Nicotine dependence Essential (primary) hypertension History of ST elevation myocardial infarction (STEMI) (12/18/20) Atherosclerotic heart disease of [place] coronary artery without angina pectoris GERD (gastroesophageal reflux disease) Borderline personality disorder Bipolar affective disorder Home Medications ?Medication ?Instructions ?Recorded ?Last Taken ?Type aspirin 81 mg tablet,delayed 81 mg PO QODAY HEALTH MAINTENANCE 07/13/21 08/31/23 History release (Adult Low Dose Aspirin) fluticasone propionate 50 2 spray intranasal DAILY PRN 10/29/21 Unknown History mcg/actuation nasal Allergy Symptoms spray,suspension (Flonase Allergy Relief) spacer #1 ea 05/23/22 Unknown Rx lorazepam 0.5 mg tablet 0.5 mg PO DAILY PRN anxiety 09/04/23 Unknown History potassium chloride 20 mEq 20 meq PO .QOD #30 tabs 04/03/24 Unknown Rx tablet,extended release cholecalciferol (vitamin D3) 50 50 mcg PO QDAY 04/09/24 Unknown History mcg (2,000 unit) capsule (Vitamin D3) ezetimibe 10 mg tablet (Zetia) 10 mg PO DAILY #90 tabs 04/09/24 Unknown Rx fluoxetine 20 mg capsule 20 mg PO QDAY 04/09/24 Unknown History lamotrigine 25 mg tablet 25 mg PO DAILY 04/09/24 Unknown History magnesium 200 mg tablet 200 mg PO QWEEK 04/09/24 Unknown History albuterol sulfate 90 mcg/actuation 2 inh inhalation Q6H PRN shortness 05/11/24 Unknown Rx aerosol inhaler (Ventolin HFA) of breath or wheezing #8.5 grams cyclobenzaprine 10 mg tablet 10 mg PO TID PRN Muscle Spasm #15 06/17/24 Unknown Rx TABLETS lidocaine 5 % topical patch 1 patch topical DAILY #7 ea 06/17/24 Unknown Rx (Lidoderm) hydrochlorothiazide 25 mg tablet 25 mg PO DAILY #30 tabs 06/19/24 Unknown Rx doxazosin 1 mg tablet 1 mg PO DAILY #90 tabs 06/22/24 Unknown Rx Amitiza 24 mcg capsule 24 mcg PO BID 30 days #180 caps 06/30/24 Unknown Rx (lubiprostone) budesonide 160 mcg-glycopyr 9 2 inh inhalation BID #3 ea 08/04/24 Unknown Rx mcg-formot 4.8 mcg/actuation HFA inhaler (Breztri Aerosphere) codeine 10 mg-guaifenesin 100 mg/5 10 ml PO 4X/DAY PRN flu symptoms 7 12/22/24 Unknown Rx mL oral liquid (Guaifenesin AC) days #280 mL fluoxetine 10 mg capsule (Prozac) 10 mg PO DAILY 12/22/24 Unknown History lamotrigine 100 mg tablet 100 mg PO DAILY 12/22/24 Unknown History (Lamictal) ondansetron 4 mg disintegrating 4 mg PO TID PRN nausea and 12/22/24 Unknown Rx tablet vomiting #21 tabs prednisone 20 mg tablet 40 mg (2 x 20 mg) PO DAILY 7 days 12/22/24 Unknown Rx #14 tabs Allergy/AdvReac Type Severity Reaction Status Date / Time morphine Allergy Hives Verified 12/22/24 02:43 amlodipine AdvReac Intermediate chest Verified 12/22/24 02:43 pain and cannot breathe carvedilol (From Coreg) AdvReac Intermediate throat Verified 12/22/24 02:43 closing up and chest pressure citalopram (From Celexa) AdvReac NAUSEATED Verified 12/22/24 02:43 AND IRRITABLE lisinopril AdvReac SOB, chest Verified 12/22/24 02:43 tightness,throat closing venlafaxine (From Effexor) AdvReac DIDN'T Verified 12/22/24 02:43 WORK Family History Father CAD (coronary artery disease) Myocardial infarction Surgical History History of esophagogastroduodenoscopy (EGD) History of cardiac catheterization (08/11/21) H/O section History of left heart catheterization (05/17/21) History of coronary artery stent placement (12/18/20) Social History household members: none Smoking Status: Current some day smoker tobacco type: cigarettes alcohol intake: never substance use type: does not use caffeine: Yes Type: coffee Number of servings: 2 ROS ROS ED Constitutional Constitutional ED: Reports chills, fever(s) and subjective Eyes Eyes: Denies change in vision ENT ENT ED: Reports rhinorrhea and sore throat Cardiovascular Cardiovascular: Denies chest pain Respiratory/Chest Respiratory/Chest: Reports cough and dyspnea Gastrointestinal Gastrointestinal: Reports nausea; Denies abdominal pain, diarrhea or vomiting Genitourinary Genitourinary ED: Denies dysuria Musculoskeletal Musculoskeletal: Reports myalgias Integumentary Denies rash Neurologic Neurologic: Reports headache(s) Hematologic/Lymphatic Hematologic/Lymphatic: Denies easy bleeding or easy bruising EXAM Physical Exam Const Vital Signs: 12/22/24 02:43 12/22/24 02:46 12/22/24 04:42 Temperature 98.5 F Temperature Source Oral Pulse Rate 114 H 99 Respiratory Rate 18 16 Respiratory Effort Normal Respiratory Pattern Normal Blood Pressure 150/74 H 142/80 H Blood Pressure Mean 99 100 Pulse Ox 95 96 Oxygen Delivery Method Room Air Room Air 12/22/24 04:46 Temperature 98 F Temperature Source Pulse Rate 98 Respiratory Rate 16 Respiratory Effort Respiratory Pattern Blood Pressure 142/80 H Blood Pressure Mean 100 Pulse Ox 96 Oxygen Delivery Method Positive well nourished and well developed General Appearance ED: well developed; Negative for pallor HEENT HEENT Narrative: No tongue or lip swelling no oral lesions no airway edema or compromise No signs of infection noted in the posterior pharynx Nasal mucosa is hyperemic and boggy There is cobblestoning the posterior pharynx consistent with sinus drainage Bilateral TMs are retracted but show no secondary findings to suggest infection Eyes PERRL and EOMs intact bilaterally General Eye ED: Negative for scleral icterus Neck supple and no JVD Neck Narrative: No nuchal rigidity or meningeal signs noted Chest Wall palpation of chest normal Chest Narrative: No bony deformity or crepitance or subcutaneous emphysema Resp normal respiratory effort Resp Narrative: Breath sounds are diminished throughout with diffuse expiratory wheezing consistent history of asthma and COPD. However no signs of acute respiratory distress Cardio regular rhythm Rate: tachycardic and other Other Details: Tachycardic rate with regular rhythm Radial and carotid pulses equal and symmetric GI normal to inspection, nondistended, normoactive bowel sounds, non-tender, non-distended and no masses Auscultation: normoactive bowel sounds Palpation: soft Extremity normal to inspection Extremity Narrative: No asymmetric edema no pitting edema negative Homans' sign bilaterally Neuro oriented x3, CN's II-XII intact bilaterally and no sensory deficits noted Sensorium / Orientation: alert Motor Exam: strength 5/5 throughout Psych Mood & Affect: anxious Skin no rashes or lesions noted and no wounds General Skin Exam: Negative for jaundice or pallor MDM MDM MDM Narrative Medical decision making narrative: Patient arrived to the ER hypertensive but has a past medical history of this. Otherwise she is afebrile and in no acute respiratory distress and satting in the mid 90s on room air. Her constellation of symptoms is most consistent with a viral infection such as COVID versus influenza versus RSV. There is potential for pneumonia or pneumothorax. Therefore at this time a chest x-ray and viral swab will be obtained. Based on her history and exam and the fact she is not in respiratory distress I do not feel the need for blood work. Patient's chest x-ray revealed no acute lung pathology and her viral swab was positive for influenza A which correlates with her symptoms. At this time she is not in respiratory distress she is not requiring supplemental oxygen she does not have acute lung pathology such as pneumonia or pneumothorax and therefore there is no need for further workup or admission and she is otherwise safe for discharge. History & Record Review Discussion w/independent historian: Patient Radiography Diagnostic Testing: Clinical Impression(s) from Imaging Studies Chest X-Ray 12/22/24 03:40 IMPRESSION: No evidence of active intrathoracic disease. Electronically Signed: Kaylee Andersen MD at 5:15 EST , Chest x-ray as interpreted by the emergency medicine physician reveals no acute infiltrate pneumothorax or pleural effusion Discharge Plan Triage Chief Complaint: General Illness ED Provider: Johnathan Perez Dx/Rx/DC Orders Clinical Impression: Influenza A, Essential (primary) hypertension, COPD (chronic obstructive pulmonary disease), Tobacco abuse Instructions: ED Influenza (Adult) Prescriptions: New prednisone 20 mg tablet 40 mg PO DAILY 7 Days Qty: 14 0RF codeine-guaifenesin [Guaifenesin AC] 10-100 mg/5 mL liquid 10 ml PO 4X/DAY PRN (Reason: flu symptoms) 7 Days Qty: 280 0RF ondansetron 4 mg tablet,disintegrating 4 mg PO TID PRN (Reason: nausea and vomiting) Qty: 21 0RF No Action aspirin [Adult Low Dose Aspirin] 81 mg tablet,delayed release (DR/EC) 81 mg PO QODAY Rx Instructions: 81 mg PO; 3x week lamotrigine 25 mg tablet 25 mg PO DAILY fluoxetine 20 mg capsule 20 mg PO QDAY cholecalciferol (vitamin D3) [Vitamin D3] 50 mcg (2,000 unit) capsule 50 mcg PO QDAY ezetimibe [Zetia] 10 mg tablet 10 mg PO DAILY Qty: 90 3RF Breztri Aerosphere 160-9-4.8 mcg/actuation HFA aerosol inhaler 2 inh inhalation BID Qty: 3 3RF fluticasone propionate [Flonase Allergy Relief] 50 mcg/actuation spray,suspension 2 spray intranasal DAILY PRN (Reason: Allergy Symptoms) Rx Instructions: administer into each nostril lorazepam 0.5 mg tablet 0.5 mg PO DAILY PRN (Reason: anxiety) Patient Comments: Take 1 tablet by mouth once daily as needed for up to 30 days. magnesium 200 mg tablet 200 mg PO QWEEK lidocaine [Lidoderm] 5 % adhesive patch,medicated 1 patch topical DAILY Qty: 7 0RF Rx Instructions: leave on most painful area for up to 12 hrs cyclobenzaprine 10 mg tablet 10 mg PO TID PRN (Reason: Muscle Spasm) Qty: 15 0RF fluoxetine [Prozac] 10 mg capsule 10 mg PO DAILY lamotrigine [Lamictal] 100 mg tablet 100 mg PO DAILY (DME) spacer See Rx Instructions .ROUTE .MEDSUPPLY Qty: 1 0RF Rx Instructions: As directed potassium chloride 20 mEq tablet extended release 20 meq PO .QOD Qty: 30 6RF albuterol sulfate [Ventolin HFA] 90 mcg/actuation HFA aerosol inhaler 2 inh inhalation Q6H PRN (Reason: shortness of breath or wheezing) Qty: 8.5 11RF hydrochlorothiazide 25 mg tablet 25 mg PO DAILY Qty: 30 11RF doxazosin 1 mg tablet 1 mg PO DAILY Qty: 90 3RF lubiprostone [Amitiza] 24 mcg capsule 24 mcg PO BID 30 Days Qty: 180 2RF Primary Care Provider: Ellis Crandall Referrals: Ellis Crandall MD [Primary Care Provider] - Activity Restrictions/Additional Instructions: You tested positive for influenza A. This is a viral infection that will last anywhere from 5 days to 14 days with the average being 7. Continue with Tylenol and or Motrin for fever control and keep yourself well-hydrated. Return to the ER should you have any further concerns or worsening of symptoms Print Language: Croatian Disposition Disposition: Home, Self Care Discharge Date/Time: 12/22/24 04:51
[2024-12-22 04:42] VITALS: BP 142/80; PULSE 99; RESP 16; O2SAT 96
[2024-12-22 04:46] VITALS: BP 142/80; PULSE 98; RESP 16; TEMP 36.6; O2SAT 96
== END 2024-12-22 04:51 | disposition home or self-care (01) ==
PROVIDERS: Emergency Provider Emergency Medicine; PCP Family Medicine; Visit Provider Emergency Medicine
DX: J10.1 Influenza due to other identified influenza virus with other respiratory manifestations (principal); J44.9 Chronic obstructive pulmonary disease, unspecified; M79.10 Myalgia, unspecified site; I10 Essential (primary) hypertension; I25.10 Atherosclerotic heart disease of native coronary artery without angina pectoris; R11.0 Nausea; I25.5 Ischemic cardiomyopathy; R51.9 Headache, unspecified; I25.2 Old myocardial infarction; Z79.82 Long term (current) use of aspirin; Z95.5 Presence of coronary angioplasty implant and graft; F17.210 Nicotine dependence, cigarettes, uncomplicated
CPT/HCPCS: 99283; 71046; 87631; 93005

== ENCOUNTER 2024-12-25 12:34 | Inpatient (IN) | payer MEDICARE, MEDICAID, SELFPAY ==
[2024-12-25] VITALS (15 sets, daily range): BP systolic 88–120; BP diastolic 54–99; PULSE 64–94; RESP 16–24; TEMP 36.8–37.1; O2SAT 84–97; BMI 24.7; BMI 22.7
--- NOTE | 2024-12-25 13:20 | EKG12_ITS ---
Test Reason : CP Blood Pressure : */* mmHG Vent. Rate : 80 BPM Atrial Rate : 80 BPM P-R Int : 144 ms QRS Dur : 86 ms QT Int : 370 ms P-R-T Axes : 71 71 72 degrees QTcB Int : 426 ms Normal sinus rhythm Normal ECG Confirmed by JORJE KING, LEONIDES ([id number]), writer editor MIGUEL ARSHAD ([id number]) on 12/28/2024 7:07:09 AM Referred By: KEENA/AR Confirmed By: LEONIDES RECINOS MD
--- NOTE | 2024-12-25 13:20 | RAD_ITS ---
PROCEDURE: CHEST PA AND LATERAL REASON FOR EXAM: Cough. TECHNIQUE: Frontal and lateral views of the chest. COMPARISON: None. RAD/Chest PA and Lateral IMPRESSION: Lungs are moderately hyperinflated with increased interstitial markings, consis tent with chronic lung disease. Superimposed is seen increased density in the left lower lung, probably within the lingula, concerning for small area of Pneumonitis. No pleural effusion or pneumothorax is noted. The cardiomediastinal silhouette is within the normal range. No acute osseous process is seen. Reading Location: [id number]
--- NOTE | 2024-12-25 13:25 | EX.ED.DYSGE1 ---
HPI <ILIA Chau - Last Filed: 12/25/24 15:46> History of Present Illness Chief Complaint: General Illness Narrative Narrative: Patient is a 59-year-old female with history of COPD, tobacco use, asthma who was diagnosed with influenza A on 12/22/2024. Patient states that over the last 2 days, she has been feeling much more bodyaches, weakness, she states she is more short of breath. She states that when every time she breathes, she feels that she is having significant pain in her back. She denies any vomiting however does have nausea. Denies any fever or chills. PFSH <ILIA Chau - Last Filed: 12/25/24 15:46> COUNTS INCLUDE 234 BEDS AT THE [facility] Medical History (Updated 12/25/24 @ 20:[address] Enrrique Smith, DO) Schizophrenia Anxiety Asthma Coronary artery disease Hypertension Rheumatoid arthritis High cholesterol Edentulous Smoker Emphysema, unspecified History of stress test Cardiology follow-up encounter Ulcerative colitis History of non-ST elevation myocardial infarction (NSTEMI) (08/10/21) Barretts esophagus Chronic constipation Irritable bowel syndrome with diarrhea Takotsubo cardiomyopathy (08/10/21) Post-menopausal Wears glasses Back pain Difficulty swallowing Gastric reflux Shortness of breath on exertion Leg cramps History of Holter monitoring History of echocardiogram Eloped from emergency department Intermittent palpitations Chest pain, non-cardiac Abdominal pain Depression Former smoker Myocardial infarct Asthma-COPD overlap syndrome Chest pain of uncertain etiology Headache Anxiety disorder Chronic left-sided thoracic back pain Adverse drug reaction COPD (chronic obstructive pulmonary disease) Shortness of breath 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) Ischemic cardiomyopathy Nicotine dependence Essential (primary) hypertension History of ST elevation myocardial infarction (STEMI) (12/18/20) Atherosclerotic heart disease of [place] coronary artery without angina pectoris GERD (gastroesophageal reflux disease) Borderline personality disorder Bipolar affective disorder Home Medications ?Medication ?Instructions ?Recorded ?Last Taken ?Type aspirin 81 mg tablet,delayed 81 mg PO QODAY HEALTH MAINTENANCE 07/13/21 08/31/23 History release (Adult Low Dose Aspirin) fluticasone propionate 50 2 spray intranasal DAILY PRN 10/29/21 Unknown History mcg/actuation nasal Allergy Symptoms spray,suspension (Flonase Allergy Relief) spacer #1 ea 05/23/22 Unknown Rx lorazepam 0.5 mg tablet 0.5 mg PO DAILY PRN anxiety 09/04/23 Unknown History potassium chloride 20 mEq 20 meq PO .QOD #30 tabs 04/03/24 Unknown Rx tablet,extended release cholecalciferol (vitamin D3) 50 50 mcg PO QDAY 04/09/24 Unknown History mcg (2,000 unit) capsule (Vitamin D3) fluoxetine 20 mg capsule 20 mg PO QDAY 04/09/24 Unknown History lamotrigine 25 mg tablet 25 mg PO DAILY 04/09/24 Unknown History magnesium 200 mg tablet 200 mg PO QWEEK 04/09/24 Unknown History albuterol sulfate 90 mcg/actuation 2 inh inhalation Q6H PRN shortness 05/11/24 Unknown Rx aerosol inhaler (Ventolin HFA) of breath or wheezing #8.5 grams doxazosin 1 mg tablet 1 mg PO DAILY #90 tabs 06/22/24 Unknown Rx Held on 12/25/24. Instructions: per pt 12/25/24 budesonide 160 mcg-glycopyr 9 2 inh inhalation BID #3 ea 08/04/24 Unknown Rx mcg-formot 4.8 mcg/actuation HFA inhaler (Breztri Aerosphere) codeine 10 mg-guaifenesin 100 mg/5 10 ml PO 4X/DAY PRN flu symptoms 7 12/22/24 Unknown Rx mL oral liquid (Guaifenesin AC) days #280 mL fluoxetine 10 mg capsule (Prozac) 10 mg PO DAILY 12/22/24 Unknown History ondansetron 4 mg disintegrating 4 mg PO TID PRN nausea and 12/22/24 Unknown Rx tablet vomiting #21 tabs prednisone 20 mg tablet 40 mg (2 x 20 mg) PO DAILY 7 days 12/22/24 Unknown Rx #14 tabs Allergy/AdvReac Type Severity Reaction Status Date / Time morphine Allergy Hives Verified 12/25/24 12:36 amlodipine AdvReac Intermediate chest Verified 12/25/24 12:36 pain and cannot breathe carvedilol (From Coreg) AdvReac Intermediate throat Verified 12/25/24 12:36 closing up and chest pressure citalopram (From Celexa) AdvReac NAUSEATED Verified 12/25/24 12:36 AND IRRITABLE lisinopril AdvReac SOB, chest Verified 12/25/24 12:36 tightness,throat closing venlafaxine (From Effexor) AdvReac DIDN'T Verified 12/25/24 12:36 WORK Family History Father CAD (coronary artery disease) Myocardial infarction Surgical History History of esophagogastroduodenoscopy (EGD) History of cardiac catheterization (08/11/21) H/O section History of left heart catheterization (05/17/21) History of coronary artery stent placement (12/18/20) Social History household members: none Smoking Status: Current some day smoker tobacco type: cigarettes alcohol intake: never substance use type: does not use caffeine: Yes Type: coffee Number of servings: 2 ROS <ILIA Chau - Last Filed: 12/25/24 15:46> ROS ED ROS Narrative Constitutional: Negative for fever, chills, weight loss. Positive for weakness Eyes: Negative for vision loss, vision change, double vision ENT: Negative for any sore throat, ear pain, congestion Cardiovascular: Negative for any palpitations. Positive chest pain, tightness Respiratory: Negative for any hemoptysis.positive for cough, dyspnea, dyspnea on exertion, orthopnea. Positive for cough Gastrointestinal: Negative for any abdominal pain, vomiting, diarrhea, constipation, blood in stool, blood in vomit. Positive nausea : Negative for any urinary frequency, dysuria, retention, blood in urine Muscle skeletal: Negative for any neck pain, back pain. Positive for myalgias Neurological: Negative for any headache, syncope. Positive dyspnea Skin: Negative for any rashes, itching, abrasions, lacerations Psychiatric: Negative for any depression, anxiety, stress, suicidal ideation, homicidal ideation Hematologic: Negative for any excessive bruising, easy bleeding EXAM <ILIA Chau - Last Filed: 12/25/24 15:46> Physical Exam Narrative Exam Narrative: Vital signs reviewed. Patient appears to be in no obvious respiratory distress. Patient is 91 to 94% on room air HEET: Head normocephalic atraumatic, TMs clear bilaterally. Posterior pharynx is clear, moist mucous membranes. Nares clear bilaterally. Neck: Supple with no lymphadenopathy or tenderness. No signs of meningismus. Cardiac: Regular rate and rhythm no murmurs gallops or rubs, equal peripheral pulses bilaterally. Respiratory: Diminished lung sounds in bilateral bases, patient did complain of pain with deep inspiration. No chest tenderness. Abdomen: Soft, nontender, nondistended. No abdominal bruit or pulsatile masses. No hepatosplenomegaly Extremities: No peripheral edema, no signs of gross trauma or deformity. Active full range of motion of all extremities. Neuro: Cranial nerves II through XII intact, no focal neurological deficits. Skin: Clean dry and intact with no rash, purpura, petechiae, vesicles or pustules. Backs/flank: No CVA tenderness, no midline spinal tenderness, no deformity. Psych: Normal mood and affect. No SI, HI or acute psychosis. Const Vital Signs: 12/25/24 12:36 12/25/24 12:39 12/25/24 13:01 Temperature 98.5 F Temperature Source Oral Pulse Rate 94 93 Respiratory Rate 16 23 H Respiratory Effort Normal Respiratory Pattern Normal Blood Pressure 88/67 L 104/66 Blood Pressure Mean 74 78 Pulse Ox 93 92 Oxygen Delivery Method Room Air Room Air Oxygen Flow Rate (L/min) 12/25/24 13:42 12/25/24 14:00 12/25/24 14:49 Temperature Temperature Source Pulse Rate 88 Respiratory Rate Respiratory Effort Respiratory Pattern Blood Pressure 117/99 H Blood Pressure Mean 105 Pulse Ox 92 92 84 Oxygen Delivery Method Room Air Oxygen Flow Rate (L/min) 12/25/24 15:00 Temperature Temperature Source Pulse Rate 78 Respiratory Rate 16 Respiratory Effort Respiratory Pattern Blood Pressure Blood Pressure Mean Pulse Ox 96 Oxygen Delivery Method Nasal Cannula Oxygen Flow Rate (L/min) 2 Positive well nourished and well developed General Appearance ED: well developed <Dr. Naila Bacon, DO - Last Filed: 12/27/24 12:55> Physical Exam Const Vital Signs: 12/25/24 12:36 12/25/24 12:39 12/25/24 13:01 Temperature 98.5 F Temperature Source Oral Pulse Rate 94 93 Respiratory Rate 16 23 H Respiratory Effort Normal Respiratory Pattern Normal Blood Pressure 88/67 L 104/66 Blood Pressure Mean 74 78 Pulse Ox 93 92 Oxygen Delivery Method Room Air Room Air Oxygen Flow Rate (L/min) 12/25/24 13:42 12/25/24 14:00 12/25/24 14:49 Temperature Temperature Source Pulse Rate 88 Respiratory Rate Respiratory Effort Respiratory Pattern Blood Pressure 117/99 H Blood Pressure Mean 105 Pulse Ox 92 92 84 Oxygen Delivery Method Room Air Oxygen Flow Rate (L/min) 12/25/24 15:00 Temperature Temperature Source Pulse Rate 78 Respiratory Rate 16 Respiratory Effort Respiratory Pattern Blood Pressure Blood Pressure Mean Pulse Ox 96 Oxygen Delivery Method Nasal Cannula Oxygen Flow Rate (L/min) 2 MDM <ILIA Chau - Last Filed: 12/25/24 15:46> MDM Lab Data Labs: Laboratory Results - last 24 hr 12/25/24 12/25/24 12/25/24 12:45 14:00 14:55 WBC 5.2 RBC 5.19 Hgb 15.0 Hct 43.8 MCV 84.4 MCH 28.9 MCHC 34.2 RDW Std Deviation 42.0 RDW Coeff of Dona 13.6 Plt Count 188 MPV 11.8 Immature Gran % (Auto) 0.400 Neut % (Auto) 77.5 H Lymph % (Auto) 15.0 L [place] % (Auto) 6.9 Eos % (Auto) 0.0 Baso % (Auto) 0.2 Absolute Neuts (auto) 4.0 Absolute Lymphs (auto) 0.78 L Nucleated RBC % 0 D-Dimer Quant (PE/DVT) 0.79 H* Sodium 128 L Potassium 3.6 Chloride 94 L Carbon Dioxide 23.0 Anion Gap 11 BUN 21 H Creatinine 0.90 Estim Creat Clear Calc 58.68 Est GFR (MDRD) Af Amer 82 Est GFR (MDRD) Non-Af 68 BUN/Creatinine Ratio 23.3 H Glucose 82 Calcium 9.5 Total Bilirubin 0.40 AST 41 H ALT 29 Alkaline Phosphatase 68 Total Creatine Kinase 193 H Troponin I High Sens 18 Total Protein 7.5 Albumin 3.4 Globulin 4.1 Albumin/Globulin Ratio 0.8 L Urine Color Yellow Urine Clarity Clear Urine pH 6.5 Ur Specific [place] 1.005 Urine Protein 30 H Urine Glucose (UA) Normal Urine Ketones 50 H Urine Occult Blood 50 H Urine Nitrite Negative Urine Bilirubin Negative Urine Urobilinogen Normal Ur Leukocyte Esterase Negative Urine RBC 0 SEEN Urine WBC 0 SEEN Ur Squamous Epith Cells 0-5 SEEN Urine Bacteria 0 SEEN Urine Mucus 0 SEEN Radiography Diagnostic Testing: Clinical Impression(s) from Imaging Studies Chest X-Ray 12/25/24 13:20 IMPRESSION: Lungs are moderately hyperinflated with increased interstitial markings, consistent with chronic lung disease. Superimposed is seen increased density in the left lower lung, probably within the lingula, concerning for small area of Pneumonitis. No pleural effusion or pneumothorax is noted. The cardiomediastinal silhouette is within the normal range. No acute osseous process is seen. Reading Location: [address] Chest CTA 12/25/24 14:08 IMPRESSION: 1. Chronic lung changes, with moderate pulmonary emphysematous changes. 2. No evidence of pulmonary embolism. One or more dose reduction techniques were used (e.g., Automated exposure control, adjustment of the mA and/or kV according to patient size, use of iterative reconstruction technique). Reading Location: [address] EKG Normal sinus rate of 80: Attestation: I personally reviewed and interpreted this EKG as follows: Interpretation: Sinus Rhythm Comments: Normal sinus rhythm rate of 80 bpm, NM interval 144 ms, QRS duration 86 ms, no acute ST elevation, no acute infarct noted. Treatment and Re-Evaluation :: Differential diagnosis includes however is not limited to: Sequelae of influenza A, dehydration, electrolyte abnormality, community-acquired pneumonia, pulmonary embolus, ACS, AR Patient appears generally well, vital signs are stable, patient is nontoxic-appearing. Presenting to the emergency department for complaints of weakness, chest pain, difficulty breathing post to being diagnosed with influenza A. Patient received a cardiac workup including dimer, troponin, two-view chest x-ray. Other blood labs will be obtained, IV fluids, IV Zofran were given. All radiologic examinations were read, reviewed by the emergency department attending. From these reads, a plan of care will be put in place. Patient's chest x-ray showed no pleural effusion or pneumothorax. Concerning for small area of pneumonitis. Patient's laboratory values showed normal CBC, patient's chemistries did show slight hyponatremia with a sodium 128, creatinine is normal. CPK was negative. Patient's D-dimer was elevated at 0.79. CT scan of the chest was completed, this showed some chronic lung changes with moderate pulmonary emphysematous changes. No evidence of any pulmonary embolism. Patient's urinalysis was negative for any infection. I did provide the patient with some steroids as well as a DuoNeb. Patient did ambulate and did drop to 88%, had difficulty climbing back up and had to be placed on oxygen. At this time, patient will need to be admitted to the hospital. Spoke with hospitalist who will admit the patient. <Dr. Naila Bacon, DO - Last Filed: 12/27/24 12:55> [facility] Lab Data Labs: Laboratory Results - last 24 hr 12/25/24 12/25/24 12/25/24 12:45 14:00 14:55 WBC 5.2 RBC 5.19 Hgb 15.0 Hct 43.8 MCV 84.4 MCH 28.9 MCHC 34.2 RDW Std Deviation 42.0 RDW Coeff of Dona 13.6 Plt Count 188 MPV 11.8 Immature Gran % (Auto) 0.400 Neut % (Auto) 77.5 H Lymph % (Auto) 15.0 L [place] % (Auto) 6.9 Eos % (Auto) 0.0 Baso % (Auto) 0.2 Absolute Neuts (auto) 4.0 Absolute Lymphs (auto) 0.78 L Nucleated RBC % 0 D-Dimer Quant (PE/DVT) 0.79 H* Sodium 128 L Potassium 3.6 Chloride 94 L Carbon Dioxide 23.0 Anion Gap 11 BUN 21 H Creatinine 0.90 Estim Creat Clear Calc 58.68 Est GFR (MDRD) Af Amer 82 Est GFR (MDRD) Non-Af 68 BUN/Creatinine Ratio 23.3 H Glucose 82 Calcium 9.5 Total Bilirubin 0.40 AST 41 H ALT 29 Alkaline Phosphatase 68 Total Creatine Kinase 193 H Troponin I High Sens 18 Total Protein 7.5 Albumin 3.4 Globulin 4.1 Albumin/Globulin Ratio 0.8 L Urine Color Yellow Urine Clarity Clear Urine pH 6.5 Ur Specific [place] 1.005 Urine Protein 30 H Urine Glucose (UA) Normal Urine Ketones 50 H Urine Occult Blood 50 H Urine Nitrite Negative Urine Bilirubin Negative Urine Urobilinogen Normal Ur Leukocyte Esterase Negative Urine RBC 0 SEEN Urine WBC 0 SEEN Ur Squamous Epith Cells 0-5 SEEN Urine Bacteria 0 SEEN Urine Mucus 0 SEEN Radiography Diagnostic Testing: Clinical Impression(s) from Imaging Studies Chest X-Ray 12/25/24 13:20 IMPRESSION: Lungs are moderately hyperinflated with increased interstitial markings, consistent with chronic lung disease. Superimposed is seen increased density in the left lower lung, probably within the lingula, concerning for small area of Pneumonitis. No pleural effusion or pneumothorax is noted. The cardiomediastinal silhouette is within the normal range. No acute osseous process is seen. Reading Location: [address] Chest CTA 12/25/24 14:08 IMPRESSION: 1. Chronic lung changes, with moderate pulmonary emphysematous changes. 2. No evidence of pulmonary embolism. One or more dose reduction techniques were used (e.g., Automated exposure control, adjustment of the mA and/or kV according to patient size, use of iterative reconstruction technique). Reading Location: [address] Management Discussion w/another healthcare provider: Hospitalist Treatment and Re-Evaluation :: Differential diagnosis includes however is not limited to: Sequelae of influenza A, dehydration, electrolyte abnormality, community-acquired pneumonia, pulmonary embolus, ACS, AR Patient appears generally well, vital signs are stable, patient is nontoxic-appearing. Presenting to the emergency department for complaints of weakness, chest pain, difficulty breathing post to being diagnosed with influenza A. Patient received a cardiac workup including dimer, troponin, two-view chest x-ray. Other blood labs will be obtained, IV fluids, IV Zofran were given. All radiologic examinations were read, reviewed by the emergency department attending. From these reads, a plan of care will be put in place. Patient's chest x-ray showed no pleural effusion or pneumothorax. Concerning for small area of pneumonitis. Patient's laboratory values showed normal CBC, patient's chemistries did show slight hyponatremia with a sodium 128, creatinine is normal. CPK was negative. Patient's D-dimer was elevated at 0.79. CT scan of the chest was completed, this showed some chronic lung changes with moderate pulmonary emphysematous changes. No evidence of any pulmonary embolism. Patient's urinalysis was negative for any infection. I did provide the patient with some steroids as well as a DuoNeb. Patient did ambulate and did drop to 88%, had difficulty climbing back up and had to be placed on oxygen. At this time, patient will need to be admitted to the hospital. Spoke with hospitalist who will admit the patient. I have personally performed a face to face assessment of the patient and have reviewed the MARQUIS Note. I performed a substantive portion of the visit including all aspects of the following. My moran findings include: History is patient is a 59-year-old female with history of tobacco use, COPD and asthma with recent diagnosis of influenza A couple days ago presenting with generalized weakness, difficulty getting around her house and shortness of breath. She states she feels that she cannot move her legs because she is so weak. On exam patient appears generally weak but no acute distress. No JVD. Head normocephalic atraumatic. Moist mucosal membranes. Lungs are diminished at the bases but do not appreciate any wheezing. Abdomen soft and nontender. No peripheral edema present. No deficit in strength of the lower extremities when at rest. She has 5/5 strength with plantar and dorsiflexion. I do not think this leg weakness is neurologic or Guillain-Flores? syndrome I suspect more weakness associate with influenza and some hypoxia. Patient's initial blood pressure was low but she was given IV fluids in the emergency room and normalized. Lab work shows a borderline elevated CPK which could be consistent with a viral myositis. Addition patient has been laying around a lot. Her D-dimer is elevated and CTA is obtained which does not show any acute PE or other acute process. Chest x-ray reviewed by myself as well as radiology does show hyperinflated lungs consistent with chronic lung disease and area of pneumonitis of the lingula. CTA of the chest does not show any PE or acute infiltrate. Patient is ambulated emergency room to start on 88% and took some time to come back up. Is placed on oxygen. Will be admitted for further respiratory support in the setting of influenza A with underlying lung disease. Patient agreeable with plan of care. Patient remains hemodynamic stable for medical floor at time disposition. Other additions or changes: [None] Discharge Plan Dx/Rx/DC Orders Clinical Impression: History of influenza, Hypoxia, COPD exacerbation, Weakness Disposition Disposition: [facility] Discharge Date/Time: 12/25/24 20:19
[2024-12-25 13:35] LABS: Absolute Lymphocyte Count 0.78 X10^3/uL (0.83-4.51); Basophil# 0.01 X10^3/uL; Basophil% 0.2 % (0-1); Hematocrit 43.8 % (37-47); Lymphocyte # 0.78 X10^3/ul (0.83-4.51); Mean Corp Hgb Conc 34.2 g/dL (32-36); Mean Corpuscular Hgb 28.9 pg (27.0-32.0); Mean Corpuscular Volume 84.4 fL (81-99); Mean Platelet Vol. 11.8 fl (6.2-12.0); Monocyte# 0.36 X10^3/uL; Monocyte% 6.9 % (0-10); NRBC Flagged by Analyzer 0 % (0-5); Neutrophil # 4.02 X10^3/uL (2.7-7.7); Neutrophil % 77.5 % (47-70); Platelet Count 188 K/mm3 (150-450); RBC Distribution Width CV 13.6 % (11.6-14.6); Red Blood Count 5.19 M/mm3 (4.2-5.4); White Blood Count 5.2 K/mm3 (4.4-11.0)
[2024-12-25] MEDS: Ondansetron 4 MG/2 ML Vial IV ×2 (13:43→21:04)
[2024-12-25] MEDS: 0.9% Normal Saline (1000mL) 1,000 ML 999 ML IV (13:43)
[2024-12-25 14:06] LABS: D-Dimer Quantitative (DVT/PE) 0.79 FEU/ug/m (0.27-0.49)
--- NOTE | 2024-12-25 14:08 | CT_ITS ---
PROCEDURE: CTA CHEST W/WO CONTRAST REASON FOR EXAM: Elevated D-dimer. TECHNIQUE: Chest CTA with intravenous contrast and 3D reconstructions. COMPARISON: Chest x-ray of 12/25/2024.. FINDINGS: No evidence of pulmonary embolism. No pleural effusion or pneumothorax is evident. Moderate pulmonary emphysematous changes are seen. No evidence of pulmonary edema. No focal infiltrate is seen. No adenopathy is noted. At least mild aortic calcification is present. Multiple hepatic cysts are seen. The visualized upper abdomen shows no acute process. Bones: No acute osseous abnormality identified. CT/CTA Chest W/WO Contrast IMPRESSION: 1. Chronic lung changes, with moderate pulmonary emphysematous changes. 2. No evidence of pulmonary embolism. One or more dose reduction techniques were used (e.g., Automated exposure contr ol, adjustment of the mA and/or kV according to patient size, use of iterative reconstruction technique). Reading Location: [id number]
[2024-12-25 14:20] LABS: ALB/GLOB Ratio 0.8 RATIO (0.9-2.4); AST(SGOT) 41 U/L (15-37); Alanine Aminotransfer ALT/SGPT 29 U/L (13-56); Albumin, Serum 3.4 g/dL (3.2-5.0); Alkaline Phosphatase 68 U/L (45-117); Anion Gap 11 (5-15); BUN 21 mg/dL (7-18); BUN/Creat Ratio 23.3 RATIO (10-20); Calcium,Total 9.5 mg/dL (8.5-10.1); Chloride 94 mmol/L (98-107); EST Glomerular Filtration Rate 68 mL/min (>60); Est Glom Filt Rate - Afr Amer 82 mL/min (>60); Estimated Creatinine Clearance 58.68 ml/min; Globulin 4.1 g/dL (2.2-4.2); Glucose 82 mg/dL (74-106); Potassium 3.6 mmol/L (3.5-5.1); Protein, Total 7.5 g/dL (6.4-8.2); Sodium Level 128 mmol/L (136-145); Troponin-I HS 18 pg/mL (3.0-54.0)
[2024-12-25 14:59] LABS: Bacteria 0 SEEN /hpf (None Seen); Mucous, Urine 0 SEEN /hpf (<or=2+); Red Blood Cells-Urine 0 SEEN /hpf (0-5); White Blood Cells 0 SEEN /hpf (0-5)
[2024-12-25 15:06] LABS: Color, Urine Yellow (Yellow); Glucose, Dipstick Normal (Normal); Ketone-Dipstick 50 mg/dl (Negative); Leukocyte Esterase-Dipstick Negative /ul (Negative); Nitrite-Dipstick Negative (Negative); Occult Blood-Urine 50 /ul (Negative); Protein-Dipstick 30 mg/dl (Negative); Specific Gravity, Urine 1.005 (1.002-1.030); Urine Bilirubin Dipstick Negative (Negative); Urine Clarity Clear (Clear); Urine Urobilinogen Normal (Normal); Urine pH 6.5 (5.0 - 8.0)
[2024-12-25 15:14] LABS: Squamous Epithelial Cells - UA 0-5 SEEN /hpf (5-10)
[2024-12-25 15:34] LABS: CPK Total, Creatine Kinase 193 U/L (26-192)
--- NOTE | 2024-12-25 15:39 | PCM.HP.STD ---
HPI - General General Date of Admission: 12/25/24 Date of Service: 12/25/24 Chief Complaint: Worsening shortness of breath HPI Narrative SJ MOHAN, is a 59 F who presented to [facility] ED on 12/25/2024 with worsening shortness of breath. Patient tested positive for influenza A on 12/22. She has history of COPD/asthma. Is a current smoker, only smoking about 5 cigarettes/day. Over the past few days she has developed worsening shortness of breath and some chest discomfort from frequent coughing. In the ED she was requiring 2 L nasal cannula to maintain appropriate oxygen saturations. Does not wear any home oxygen. BMP showed sodium 128, chloride 94; baseline sodium is around 135-137. CTA chest showed no PE or acute abnormalities, did show chronic lung changes with moderate pulmonary emphysematous changes. Given these findings, hospitalist was contacted for admission. I saw the patient at bedside in the ED, daughter was present. Patient was fatigued appearing but otherwise laying back comfortably in bed, conversing normally and in no acute distress. She was breathing comfortably on 2 L nasal cannula. On exam she had good air movement bilaterally with very mild wheezing noted in her upper airways. She denied any fevers or chills. Stated she had minimal appetite and had not been eating or drinking much. Denied any acute pain or discomfort outside of chest discomfort from coughing. No other acute concerns at this time. [facility] Medical History (Updated 12/25/24 @ 20:[address] Enrrique Smith, ) Schizophrenia Anxiety Asthma Coronary artery disease Hypertension Rheumatoid arthritis High cholesterol Edentulous Smoker Emphysema, unspecified History of stress test Cardiology follow-up encounter Ulcerative colitis History of non-ST elevation myocardial infarction (NSTEMI) (08/10/21) Barretts esophagus Chronic constipation Irritable bowel syndrome with diarrhea Takotsubo cardiomyopathy (08/10/21) Post-menopausal Wears glasses Back pain Difficulty swallowing Gastric reflux Shortness of breath on exertion Leg cramps History of Holter monitoring History of echocardiogram Eloped from emergency department Intermittent palpitations Chest pain, non-cardiac Abdominal pain Depression Former smoker Myocardial infarct Asthma-COPD overlap syndrome Chest pain of uncertain etiology Headache Anxiety disorder Chronic left-sided thoracic back pain Adverse drug reaction COPD (chronic obstructive pulmonary disease) Shortness of breath 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) Ischemic cardiomyopathy Nicotine dependence Essential (primary) hypertension History of ST elevation myocardial infarction (STEMI) (12/18/20) Atherosclerotic heart disease of [place] coronary artery without angina pectoris GERD (gastroesophageal reflux disease) Borderline personality disorder Bipolar affective disorder Home Medications ?Medication ?Instructions ?Recorded ?Last Taken ?Type aspirin 81 mg tablet,delayed 81 mg PO QODAY HEALTH MAINTENANCE 07/13/21 08/31/23 History release (Adult Low Dose Aspirin) fluticasone propionate 50 2 spray intranasal DAILY PRN 10/29/21 Unknown History mcg/actuation nasal Allergy Symptoms spray,suspension (Flonase Allergy Relief) spacer #1 ea 05/23/22 Unknown Rx lorazepam 0.5 mg tablet 0.5 mg PO DAILY PRN anxiety 09/04/23 Unknown History potassium chloride 20 mEq 20 meq PO .QOD #30 tabs 04/03/24 Unknown Rx tablet,extended release cholecalciferol (vitamin D3) 50 50 mcg PO QDAY 04/09/24 Unknown History mcg (2,000 unit) capsule (Vitamin D3) fluoxetine 20 mg capsule 20 mg PO QDAY 04/09/24 Unknown History lamotrigine 25 mg tablet 25 mg PO DAILY 04/09/24 Unknown History magnesium 200 mg tablet 200 mg PO QWEEK 04/09/24 Unknown History albuterol sulfate 90 mcg/actuation 2 inh inhalation Q6H PRN shortness 05/11/24 Unknown Rx aerosol inhaler (Ventolin HFA) of breath or wheezing #8.5 grams doxazosin 1 mg tablet 1 mg PO DAILY #90 tabs 06/22/24 Unknown Rx Held on 12/25/24. Instructions: per pt 12/25/24 budesonide 160 mcg-glycopyr 9 2 inh inhalation BID #3 ea 08/04/24 Unknown Rx mcg-formot 4.8 mcg/actuation HFA inhaler (Breztri Aerosphere) codeine 10 mg-guaifenesin 100 mg/5 10 ml PO 4X/DAY PRN flu symptoms 7 12/22/24 Unknown Rx mL oral liquid (Guaifenesin AC) days #280 mL fluoxetine 10 mg capsule (Prozac) 10 mg PO DAILY 12/22/24 Unknown History ondansetron 4 mg disintegrating 4 mg PO TID PRN nausea and 12/22/24 Unknown Rx tablet vomiting #21 tabs prednisone 20 mg tablet 40 mg (2 x 20 mg) PO DAILY 7 days 12/22/24 Unknown Rx #14 tabs Allergy/AdvReac Type Severity Reaction Status Date / Time morphine Allergy Hives Verified 12/25/24 12:36 amlodipine AdvReac Intermediate chest Verified 12/25/24 12:36 pain and cannot breathe carvedilol (From Coreg) AdvReac Intermediate throat Verified 12/25/24 12:36 closing up and chest pressure citalopram (From Celexa) AdvReac NAUSEATED Verified 12/25/24 12:36 AND IRRITABLE lisinopril AdvReac SOB, chest Verified 12/25/24 12:36 tightness,throat closing venlafaxine (From Effexor) AdvReac DIDN'T Verified 12/25/24 12:36 WORK Family History Father CAD (coronary artery disease) Myocardial infarction Surgical History History of esophagogastroduodenoscopy (EGD) History of cardiac catheterization (08/11/21) H/O section History of left heart catheterization (05/17/21) History of coronary artery stent placement (12/18/20) Social History household members: none Smoking Status: Current some day smoker tobacco type: cigarettes alcohol intake: never substance use type: does not use caffeine: Yes Type: coffee Number of servings: 2 ROS Constitutional Constitutional: Reports fatigue and malaise; Denies chills, fever(s) or weakness Eyes Eyes: Denies change in vision Cardiovascular Cardiovascular: Reports dyspnea on exertion; Denies chest pain Respiratory/Chest Respiratory/Chest: Reports cough, shortness of breath with exertion and wheezing; Denies productive cough or shortness of breath at rest Gastrointestinal Gastrointestinal: Reports nausea; Denies abdominal pain, constipation, diarrhea or vomiting Musculoskeletal Musculoskeletal: Reports myalgias; Denies arthralgias Vital Signs Vital Signs Vital Signs: 12/25/24 12:36 12/25/24 12:39 12/25/24 13:01 Temperature 98.5 F Temperature Source Oral Pulse Rate 94 93 Respiratory Rate 16 23 H Respiratory Effort Normal Respiratory Pattern Normal Blood Pressure 88/67 L 104/66 Blood Pressure Mean 74 78 Pulse Ox 93 92 Oxygen Delivery Method Room Air Room Air Oxygen Flow Rate (L/min) 12/25/24 13:42 12/25/24 14:00 12/25/24 14:49 Temperature Temperature Source Pulse Rate 88 Respiratory Rate Respiratory Effort Respiratory Pattern Blood Pressure 117/99 H Blood Pressure Mean 105 Pulse Ox 92 92 84 Oxygen Delivery Method Room Air Oxygen Flow Rate (L/min) 12/25/24 15:00 Temperature Temperature Source Pulse Rate 78 Respiratory Rate 16 Respiratory Effort Respiratory Pattern Blood Pressure Blood Pressure Mean Pulse Ox 96 Oxygen Delivery Method Nasal Cannula Oxygen Flow Rate (L/min) 2 Weight Weight: 61.235 kg Body Mass Index (BMI) 24.7 Physical Exam Const alert, oriented x3, no apparent distress and average body habitus Constitutional Narrative: Middle-age female, appears older than stated age, fatigued appearing, otherwise laying back comfortably in bed, conversing normally, in no acute distress. General Appearance: cooperative and comfortable HEENT normocephalic, head/scalp atraumatic, hearing grossly normal bilaterally and nasal mucous membranes and turbinates normal HEENT Narrative: Dry mucous membranes. Eyes PERRL, EOMs intact bilaterally and conjunctivae normal Neck full ROM Chest inspection of chest normal Resp normal respiratory effort and no use of accessory muscles Resp Narrative: Breathing comfortably on 2 L nasal cannula at rest. Very mild wheezing noted in upper airways bilaterally but otherwise good air movement throughout, no crackles noted. Cardio regular rate, regular rhythm, no murmurs and peripheral pulses 2+ throughout GI normal to inspection, nondistended, normoactive bowel sounds, soft to palpation, non-tender and non-distended Back/Spine normal ROM Extremity normal to inspection, full ROM and no pedal edema Skin no rashes or lesions noted Neuro moves all extremities and no focal motor deficits Speech: speech normal Psych mental status grossly normal Results Lab / Micro Data 12/25/24 12:45 12/25/24 12:45 Labs: Laboratory Results - last 24 hr 12/25/24 12:45: WBC 5.2, RBC 5.19, Hgb 15.0, Hct 43.8, MCV 84.4, MCH 28.9, MCHC 34.2, RDW Std Deviation 42.0, RDW Coeff of Dona 13.6, Plt Count 188, MPV 11.8, Immature Gran % (Auto) 0.400, Neut % (Auto) 77.5 H, Lymph % (Auto) 15.0 L, [place] % (Auto) 6.9, Eos % (Auto) 0.0, Baso % (Auto) 0.2, Absolute Neuts (auto) 4.0, Absolute Lymphs (auto) 0.78 L, Nucleated RBC % 0, D-Dimer Quant (PE/DVT) 0.79 H*, Sodium 128 L, Potassium 3.6, Chloride 94 L, Carbon Dioxide 23.0, Anion Gap 11, BUN 21 H, Creatinine 0.90, Estim Creat Clear Calc 58.68, Est GFR (MDRD) Af Amer 82, Est GFR (MDRD) Non-Af 68, BUN/Creatinine Ratio 23.3 H, Glucose 82, Calcium 9.5, Total Bilirubin 0.40, AST 41 H, ALT 29, Alkaline Phosphatase 68, Troponin I High Sens 18, Total Protein 7.5, Albumin 3.4, Globulin 4.1, Albumin/Globulin Ratio 0.8 L 12/25/24 14:00: Total Creatine Kinase 193 H 12/25/24 14:55: Urine Color Yellow, Urine Clarity Clear, Urine pH 6.5, Ur Specific Reed[place] 1.005, Urine Protein 30 H, Urine Glucose (UA) Normal, Urine Ketones 50 H, Urine Occult Blood 50 H, Urine Nitrite Negative, Urine Bilirubin Negative, Urine Urobilinogen Normal, Ur Leukocyte Esterase Negative, Urine RBC 0 SEEN, Urine WBC 0 SEEN, Ur Squamous Epith Cells 0-5 SEEN, Urine Bacteria 0 SEEN, Urine Mucus 0 SEEN Imaging Radiology Impression Chest X-Ray 12/25/24 13:20 IMPRESSION: Lungs are moderately hyperinflated with increased interstitial markings, consistent with chronic lung disease. Superimposed is seen increased density in the left lower lung, probably within the lingula, concerning for small area of Pneumonitis. No pleural effusion or pneumothorax is noted. The cardiomediastinal silhouette is within the normal range. No acute osseous process is seen. Reading Location: [id number] Chest CTA 12/25/24 14:08 IMPRESSION: 1. Chronic lung changes, with moderate pulmonary emphysematous changes. 2. No evidence of pulmonary embolism. One or more dose reduction techniques were used (e.g., Automated exposure control, adjustment of the mA and/or kV according to patient size, use of iterative reconstruction technique). Reading Location: [address] Assessment & Plan Assessment/Plan (1) Influenza A: (2) Acute exacerbation of chronic obstructive pulmonary disease: (3) Hypoxia: PLAN: Plan Patient is a 59-year-old female who presented [facility] ED on 12/25/2024 with worsening shortness of breath. 1. COPD exacerbation with hypoxia secondary to influenza A infection ? Admit under inpatient status to PCU. Influenza A positive on admit. CTA chest with no PE or acute changes, only showed moderate chronic emphysematous changes. Will treat with IV steroids and scheduled DuoNebs. Low concern for secondary bacterial infection, no need for antibiotics. Wean supplemental oxygen as able. Continue home long-acting inhalers. 2. Hyponatremia ? Sodium 128 on admit, baseline 135-137. Chloride low at 94. Suspected secondary to dehydration with poor p.o. intake. Is on SSRI but has been on stable dose for a long time. Given IV fluids in the ED, follow-up a.m. sodium level. No mental status changes noted. 3. History of CAD with stenting, hyperlipidemia ? Last stenting done in 2020. Continue home aspirin. Not on home statin for unclear reason. 4. Tobacco abuse ? Current smoker, smoking about 5 cigarettes/day. Denied need for nicotine replacement therapy during hospitalization. For nicotine replacement therapy during hospitalization. Discussed cessation. 5. Mood disorder ? Stable. Continue home fluoxetine, lamotrigine and lorazepam as needed. DVT prophylaxis: Lovenox CODE STATUS: Full code, verified Expected disposition: Home, 2 to 3 days Total clinical time spent by myself addressing the patient's medical issues, reviewing all the data, and collaborating with patient's care team: 55 minutes. Charges/Coding Visit Charges Inpatient E&M: 50599 Init Hosp L2
[2024-12-25] MEDS: Ipratropium/Albuterol Sulfate 3 ML AMPUL.NEB INHALATION (17:16)
[2024-12-25] MEDS: MethylPREDNISolone 125 MG/2 ML Vial 60 MG IV (17:49)
[2024-12-25] MEDS: oxyCODONE 5 MG Tablet PO (18:16)
[2024-12-26] VITALS (10 sets, daily range): BP systolic 104–134; BP diastolic 64–70; PULSE 64–92; RESP 16–18; TEMP 36.5–37.7; O2SAT 81–97
[2024-12-26 00:03] LABS: Urine Sodium 15 mmol/L (Not Establ.)
[2024-12-26 00:20] LABS: Osmolality, Urine 690 mOsm/KG
[2024-12-26 00:46] LABS: Osmolality, Serum 279 mOsm/KG (275-295)
[2024-12-26] MEDS: 0.9% Saline Lock 10 ML Syringe IV ×3 (05:35→21:31)
[2024-12-26 06:34] LABS: Hematocrit 40.1 % (37-47); Hemoglobin 13.5 g/dL (12.0-15.0); Mean Corp Hgb Conc 33.7 g/dL (32-36); Mean Corpuscular Hgb 29.2 pg (27.0-32.0); Mean Corpuscular Volume 86.8 fL (81-99); Mean Platelet Vol. 11.3 fl (6.2-12.0); Platelet Count 173 K/mm3 (150-450); RBC Distribution Width CV 13.9 % (11.6-14.6); RBC Distribution Width SD 44.6 fl (35.1-43.9); Red Blood Count 4.62 M/mm3 (4.2-5.4); White Blood Count 3.1 K/mm3 (4.4-11.0)
[2024-12-26 07:12] LABS: Anion Gap 9 (5-15); BUN 16 mg/dL (7-18); BUN/Creat Ratio 26.5 RATIO (10-20); Chloride 99 mmol/L (98-107); EST Glomerular Filtration Rate 108 mL/min (>60); Est Glom Filt Rate - Afr Amer 131 mL/min (>60); Estimated Creatinine Clearance 80.83 ml/min; Glucose 104 mg/dL (74-106); Sodium Level 130 mmol/L (136-145)
[2024-12-26] MEDS: Ipratropium/Albuterol Sulfate 3 ML AMPUL.NEB INHALATION ×3 (07:56→19:37)
[2024-12-26 09:35] LABS: Procalcitonin 0.05 ng/mL (0.00-0.09)
--- NOTE | 2024-12-26 09:58 | CASEMGMT ---
IDA LOW Assessment: Face to Face with pt for initial transition planning/care coordination assessment. IDA LOW introduced self and role at [facility], pt voices understanding and consents to assessment. Pt is A&O x4 and answers all questions appropriately at this time. Pt lying in bed in no distress. Care providers, pharmacy, and demographics verified/updated. Strata: 3 Admitting Dx: Flu A Infection W/COPD Exacerbation and Hypoxia PCP: Karley Specialists: John, Cardiovascular; Friend, Gastro; [facility] Preferred Pharmacy: [facility] Insurance: [employer] [facility] Prescription Benefit: yes LNOK: Sons Denilson and Massimo Living Arrangements: Pt lives with son and granddaughters in a 2 level home with 5 steps to enter. ADLs: Pt states I at baseline. Transportation: Pt drives self and denies concerns with transportation. DME: Portable toilet HHC/SNF: Denies Hx of Pt states no concerns with going home at time of dc. IDA LOW discussed O2 needs at time of DC. Provided list of local O2 providers, Pt chose [facility] as provider of choice. Pt states no further concerns/needs. CM to follow. Advised pt to ask CM if any further question/concerns/needs arise, voices understanding. Pt Goal: Home Plan: Home, follow for O2 needs. Sophie PRIETO CM
[2024-12-26] MEDS: Cholecalciferol (VIT D3) 25 MCG TABLET (1,000 UNITS) 50 MCG PO (10:21)
[2024-12-26] MEDS: Aspirin E.C. 81 MG Tablet PO (10:21)
[2024-12-26] MEDS: FLUoxetine 20 MG Capsule PO (10:21)
[2024-12-27 03:40] VITALS: BP 153/78; PULSE 78; RESP 18; TEMP 36.6; O2SAT 95
[2024-12-27] MEDS: 0.9% Saline Lock 10 ML Syringe IV (05:28)
[2024-12-27 06:45] VITALS: PULSE 76; RESP 19
[2024-12-27] MEDS: Ipratropium/Albuterol Sulfate 3 ML AMPUL.NEB INHALATION (07:10)
[2024-12-27 09:20] VITALS: BP 112/67; PULSE 77; RESP 16; TEMP 36.8; O2SAT 93
[2024-12-27 09:23] VITALS: O2SAT 86; O2SAT 92; O2SAT 94
--- NOTE | 2024-12-27 12:39 | PCM.PN.HOSP ---
Reason for Visit Reason for Visit: Diagnoses Influenza due to other identified influenza virus with other respiratory manifestations (12/25/24) Chronic obstructive pulmonary disease with (acute) exacerbation (12/25/24) Hypoxemia (12/25/24) Subjective Subjective Patient was seen and examined today Objective Data Objective Data Vital Signs: Vital Signs Temp Pulse Resp BP Pulse Ox O2 Del Method O2 Flow Rate 98.2 F 77 16 112/67 93 Nasal Cannula 2 12/27/24 09:20 12/27/24 09:20 12/27/24 09:20 12/27/24 09:20 12/27/24 09:20 12/27/24 10:00 12/27/24 10:00 FiO2 95 12/26/24 08:01 Oxygen Flow Rate (L/min) 2 Oxygen Delivery Method Nasal Cannula Weight: 56.4 kg Body Mass Index (BMI) 22.7 Intake & Output: Intake and Output for Last 24 Hours 12/25/24 12/26/24 12/27/24 23:59 23:59 23:59 Intake Total 1000 / 1200 260 / 260 Balance 1000 / 1200 260 / 260 Lab / Micro Data 12/26/24 05:25 12/26/24 05:25
--- NOTE | 2024-12-27 13:46 | DCINST_ITS ---
Discharge Instructions Diet Discharge Diet: No restrictions DC O2, CPAP, BIPAP needs RN Home O2 Qualification: Home O2 Qualification: Is the patient on home oxygen No 12/27/24 09:23 Home O2 Qualification: AT REST 1- Pulse Ox at rest 86 12/27/24 09:23 2- Pulse Ox at rest 92 12/27/24 09:23 2- Oxygen Flow Rate at rest 2 12/27/24 09:23 Home O2 Qualification: WITH AMBULATION 1- Pulse Ox with ambulation 86 12/27/24 09:23 1- Oxygen Flow Rate with 2 12/27/24 09:23 ambulation 2- Pulse Ox with ambulation 86 12/27/24 09:23 2- Oxygen Flow Rate with 3 12/27/24 09:23 ambulation 3- Pulse Ox with ambulation 94 12/27/24 09:23 3- Oxygen Flow Rate with 4 12/27/24 09:23 ambulation 3- Stopped test - Unable to No 12/27/24 09:23 obtain pulse ox >89% w/ max oxyg Home O2 Discharge instructions: Yes Type of respiratory needs?: Oxygen Oxygen frequency: Continuous Continuous oxygen liters per minute: 2 L and With Ambulation Oxygen liters per minute during Ambulation: 2L, 4 L with ambulation Dressing / Incision Discharge Activity: Return to Normal Activity Weight Bearing Status: Full weight bearing Follow Up Care Test Results: Test results from this visit will be discussed in further detail at your follow- up appointment, if applicable. Discharge Plan Admission Admit Date/Time: 12/25/24 15:46 Primary Reason for Your Visit: Exacerbation of COPD with hypoxia secondary to influenza A Attending Provider: Manuel Chavez Primary Care Provider: Ellis Crandall Consulting Providers: Enrrique Smith Instructions Additional Instructions / Restrictions: Use 2 L of oxygen continuously at rest, 4 L when walking or exerting yourself Do not resume smoking Discharge Orders/Prescriptions Prescriptions: Continued aspirin [Adult Low Dose Aspirin] 81 mg tablet,delayed release (DR/EC) 81 mg PO QODAY Rx Instructions: 81 mg PO; 3x week lamotrigine 25 mg tablet 25 mg PO DAILY fluoxetine 20 mg capsule 20 mg PO QDAY cholecalciferol (vitamin D3) [Vitamin D3] 50 mcg (2,000 unit) capsule 50 mcg PO QDAY Breztri Aerosphere 160-9-4.8 mcg/actuation HFA aerosol inhaler 2 inh inhalation BID Qty: 3 3RF fluticasone propionate [Flonase Allergy Relief] 50 mcg/actuation spray,suspension 2 spray intranasal DAILY PRN (Reason: Allergy Symptoms) Rx Instructions: administer into each nostril lorazepam 0.5 mg tablet 0.5 mg PO DAILY PRN (Reason: anxiety) Patient Comments: Take 1 tablet by mouth once daily as needed for up to 30 days. magnesium 200 mg tablet 200 mg PO QWEEK fluoxetine [Prozac] 10 mg capsule 10 mg PO DAILY prednisone 20 mg tablet 40 mg PO DAILY 7 Days Qty: 14 0RF codeine-guaifenesin [Guaifenesin AC] 10-100 mg/5 mL liquid 10 ml PO 4X/DAY PRN (Reason: flu symptoms) 7 Days Qty: 280 0RF ondansetron 4 mg tablet,disintegrating 4 mg PO TID PRN (Reason: nausea and vomiting) Qty: 21 0RF (DME) spacer See Rx Instructions .ROUTE .MEDSUPPLY Qty: 1 0RF Rx Instructions: As directed potassium chloride 20 mEq tablet extended release 20 meq PO .QOD Qty: 30 6RF albuterol sulfate [Ventolin HFA] 90 mcg/actuation HFA aerosol inhaler 2 inh inhalation Q6H PRN (Reason: shortness of breath or wheezing) Qty: 8.5 11RF doxazosin 1 mg tablet 1 mg PO DAILY Qty: 90 3RF Referrals / Follow Up: Ellis Crandall MD [Primary Care Provider] - In 1 Week Disposition Disposition (needs filled in before D/C Order can be placed): Home, Self Care
--- NOTE | 2024-12-27 13:55 | DS.PCM_ITS ---
Providers Date of Admission: 12/25/24 Date of Discharge: 12/27/24 Primary Care Physician: Dr. Ellis Crandall MD Reason For Visit: FLU A INFECTION W/ COPD EXACERBATION AND HYPOXIA Diagnosis Discharge Diagnosis (1) Influenza A: Status: Acute Code(s): J10.1 - Influenza due to other identified influenza virus with other respiratory manifestations (2) Acute exacerbation of chronic obstructive pulmonary disease: Status: Inactive Code(s): J44.1 - Chronic obstructive pulmonary disease with (acute) exacerbation (3) Hypoxia: Status: Acute Code(s): R09.02 - Hypoxemia Plan 1. Acute exacerbation of COPD secondary to influenza A infection #2 influenza A infection #3 coronary artery disease #4 essential hypertension Medications at Discharge Home Medications aspirin 81 mg tablet,delayed release (Adult Low Dose Aspirin) 81 mg PO QODAY HEALTH MAINTENANCE 07/13/21 fluticasone propionate 50 mcg/actuation nasal spray,suspension (Flonase Allergy Relief) 2 spray intranasal DAILY PRN Allergy Symptoms 10/29/21 spacer #1 ea 05/23/22 lorazepam 0.5 mg tablet 0.5 mg PO DAILY PRN anxiety 09/04/23 potassium chloride 20 mEq tablet,extended release 20 meq PO .QOD #30 tabs 04/03/24 cholecalciferol (vitamin D3) 50 mcg (2,000 unit) capsule (Vitamin D3) 50 mcg PO QDAY 04/09/24 fluoxetine 20 mg capsule 20 mg PO QDAY 04/09/24 lamotrigine 25 mg tablet 25 mg PO DAILY 04/09/24 magnesium 200 mg tablet 200 mg PO QWEEK 04/09/24 albuterol sulfate 90 mcg/actuation aerosol inhaler (Ventolin HFA) 2 inh inhalation Q6H PRN shortness of breath or wheezing #8.5 grams 05/11/24 doxazosin 1 mg tablet 1 mg PO DAILY #90 tabs 06/22/24 budesonide 160 mcg-glycopyr 9 mcg-formot 4.8 mcg/actuation HFA inhaler (Breztri Aerosphere) 2 inh inhalation BID #3 ea 08/04/24 codeine 10 mg-guaifenesin 100 mg/5 mL oral liquid (Guaifenesin AC) 10 ml PO 4X/DAY PRN flu symptoms 7 days #280 mL 12/22/24 fluoxetine 10 mg capsule (Prozac) 10 mg PO DAILY 12/22/24 ondansetron 4 mg disintegrating tablet 4 mg PO TID PRN nausea and vomiting #21 tabs 12/22/24 prednisone 20 mg tablet 40 mg (2 x 20 mg) PO DAILY 7 days #14 tabs 12/22/24 Hospital Course Operations None Procedures None Summary of Care Provided Minutes Spent on Discharge: 31 Hospital Course: This 59-year-old white female was seen in the emergency room at [facility] with a chief complaint of increased shortness of breath, she had been seen in the emergency room 3 days prior and placed on prednisone and a cough suppressant. At that time she had been diagnosed with influenza A but not given Tamiflu. Workup in the emergency room revealed the patient to be hypoxic on room air, CBC was unremarkable, chest x-ray revealed hyperinflated lungs consistent with chronic lung disease, there was a small area of increased density in the left lower lung concerning for pneumonitis. Chest CTA was obtained which showed chronic lung changes with moderate pulmonary emphysematous changes and no evidence of pulmonary embolism. Patient was admitted to PCU, she was placed on aerosol treatments and IV corticosteroids, Tamiflu was not administered. Patient's breathing improved during her hospitalization but at the time of discharge on 12/27/2024, she still required 2 L of oxygen at rest and 4 L of oxygen when ambulating. On 12/27/2024, patient was seen and examined: On examination she appeared in good health and spirits, she does not appear to be in any distress. Vital signs as documented. Skin warm and dry and without overt rashes. Neck without JVD, thyroid appears normal, trachea is midline, neck is supple. Lungs clear, normal air movement was noted. Heart exam notable for regular rhythm, normal sounds and absence of murmurs, rubs or gallops. Abdomen unremarkable and without evidence of organomegaly, masses, or abdominal aortic enlargement, bowel sounds are present in all 4 quadrants, no abdominal tenderness was noted. Extremities nonedematous, no cyanosis was noted, no clubbing was noted. Neuro: Cranial nerves II through XII are grossly intact, no focal motor deficits were noted, sensation to light touch and pinprick is intact, motor exam 5/5 throughout. Psych: Patient is alert and oriented x3, she does not appear anxious or depressed, she does not appear agitated. Patient requested discharge home on 12/27/2024, I felt she was medically stable at that time and home oxygen was set up for the patient. She was to finish out her course of prednisone that she had received from the emergency room previously. Weight / BMI Weight Weight: 56.4 kg Body Mass Index (BMI) 22.7 ABG / Lab / Microbiology Data 12/26/24 05:25 12/26/24 05:25 D/C Instructions Discharge Diet: No restrictions Weight Bearing Status: Full weight bearing DC O2, CPAP, BIPAP Needs RN Home O2 Qualification: Home O2 Qualification: Is the patient on home oxygen No 12/27/24 09:23 Home O2 Qualification: AT REST 1- Pulse Ox at rest 86 12/27/24 09:23 2- Pulse Ox at rest 92 12/27/24 09:23 2- Oxygen Flow Rate at rest 2 12/27/24 09:23 Home O2 Qualification: WITH AMBULATION 1- Pulse Ox with ambulation 86 12/27/24 09:23 1- Oxygen Flow Rate with 2 12/27/24 09:23 ambulation 2- Pulse Ox with ambulation 86 12/27/24 09:23 2- Oxygen Flow Rate with 3 12/27/24 09:23 ambulation 3- Pulse Ox with ambulation 94 12/27/24 09:23 3- Oxygen Flow Rate with 4 12/27/24 09:23 ambulation 3- Stopped test - Unable to No 12/27/24 09:23 obtain pulse ox >89% w/ max oxyg PSN CPAP & BiPAP: BiPAP & CPAP Settings per PSN Fraction of Inspired Oxygen ( 95 12/26/24 08:01 FIO2) Home O2 Discharge instructions: Yes Type of respiratory needs?: Oxygen Oxygen frequency: Continuous Continuous oxygen liters per minute: 2 L and With Ambulation Oxygen liters per minute during Ambulation: 2L, 4 L with ambulation DC home with Oxygen: Yes Home O2 MD Review: I have reviewed the oxygen testing, and the patient qualifies for home oxygen equipment and portability. The patient is mobile in the home and the community. Meaningful Use Info Meaningful Use Meaningful Use Diagnoses (Choose all that apply): None applicable Ischemic Stroke Statin Dosing Therapy Reference: STATIN DOSE THERAPY REFERENCE: * Patients > 75 years receive moderate or high dose statin therapy. * Patients 75 years or YOUNGER should receive HIGH intensity statin dose unless contraindicated. You will be required to document reason for non-treatment if statin daily dose does not meet guidelines. HIGH DOSE STATIN THERAPY DAILY Atorvastatin > than or = to 40 mg Rosuvastatin > than or = to 20 mg Amlodipine + Atorvastatin > than or = to 2.5/40 mg Ezetimibe + Simvastatin 10/80 mg Simvastatin 80mg Discharge Plan Admission Admit Date/Time: 12/25/24 15:46 Primary Reason for Your Visit: Exacerbation of COPD with hypoxia secondary to influenza A Attending Provider: Manuel Chavez Primary Care Provider: Ellis Crandall Consulting Providers: Enrrique Smith Instructions Additional Instructions / Restrictions: Use 2 L of oxygen continuously at rest, 4 L when walking or exerting yourself Do not resume smoking Discharge Orders/Prescriptions Prescriptions: Continued aspirin [Adult Low Dose Aspirin] 81 mg tablet,delayed release (DR/EC) 81 mg PO QODAY Rx Instructions: 81 mg PO; 3x week lamotrigine 25 mg tablet 25 mg PO DAILY fluoxetine 20 mg capsule 20 mg PO QDAY cholecalciferol (vitamin D3) [Vitamin D3] 50 mcg (2,000 unit) capsule 50 mcg PO QDAY Breztri Aerosphere 160-9-4.8 mcg/actuation HFA aerosol inhaler 2 inh inhalation BID Qty: 3 3RF fluticasone propionate [Flonase Allergy Relief] 50 mcg/actuation spray,suspension 2 spray intranasal DAILY PRN (Reason: Allergy Symptoms) Rx Instructions: administer into each nostril lorazepam 0.5 mg tablet 0.5 mg PO DAILY PRN (Reason: anxiety) Patient Comments: Take 1 tablet by mouth once daily as needed for up to 30 days. magnesium 200 mg tablet 200 mg PO QWEEK fluoxetine [Prozac] 10 mg capsule 10 mg PO DAILY prednisone 20 mg tablet 40 mg PO DAILY 7 Days Qty: 14 0RF codeine-guaifenesin [Guaifenesin AC] 10-100 mg/5 mL liquid 10 ml PO 4X/DAY PRN (Reason: flu symptoms) 7 Days Qty: 280 0RF ondansetron 4 mg tablet,disintegrating 4 mg PO TID PRN (Reason: nausea and vomiting) Qty: 21 0RF (DME) spacer See Rx Instructions .ROUTE .MEDSUPPLY Qty: 1 0RF Rx Instructions: As directed potassium chloride 20 mEq tablet extended release 20 meq PO .QOD Qty: 30 6RF albuterol sulfate [Ventolin HFA] 90 mcg/actuation HFA aerosol inhaler 2 inh inhalation Q6H PRN (Reason: shortness of breath or wheezing) Qty: 8.5 11RF doxazosin 1 mg tablet 1 mg PO DAILY Qty: 90 3RF Referrals / Follow Up: Ellis Crandall MD [Primary Care Provider] - In 1 Week Disposition Disposition (needs filled in before D/C Order can be placed): Home, Self Care Charges/Coding Visit Charges Inpatient E&M: 64316 Subs Hosp L2
[2024-12-27 14:07] VITALS: BP 135/83; PULSE 81; RESP 16; O2SAT 92
== END 2024-12-27 14:44 | disposition home or self-care (01) | DRG 191 ==
LOC: ED 15:49 → PCU 18:26
PROVIDERS: Nurse Practitioner; Admitting Provider Hospitalist; Emergency Provider Emergency Medicine; PCP Family Medicine; Visit Provider Internal Medicine
DX: J44.1 Chronic obstructive pulmonary disease with (acute) exacerbation (principal); E87.1 Hypo-osmolality and hyponatremia; F31.9 Bipolar disorder, unspecified; I10 Essential (primary) hypertension; J10.1 Influenza due to other identified influenza virus with other respiratory manifestations; F17.210 Nicotine dependence, cigarettes, uncomplicated; I25.10 Atherosclerotic heart disease of native coronary artery without angina pectoris; E78.00 Pure hypercholesterolemia, unspecified; I25.2 Old myocardial infarction; F41.9 Anxiety disorder, unspecified; Z95.5 Presence of coronary angioplasty implant and graft; Z79.82 Long term (current) use of aspirin; Z79.51 Long term (current) use of inhaled steroids; Z79.899 Other long term (current) drug therapy; R09.02 Hypoxemia
CPT/HCPCS: 36415; 71046; 71275; 80048; 80053; 81001; 82550; 83930; 83935; 84145; 84300; 84484; 85025; 85027; 85379; 87631; 93005; 94640; 94668; 99283; 99284; Q9967; A4216; J2405

== ENCOUNTER 2025-01-06 10:28 | Emergency (ER) | payer MEDICARE, MEDICAID, SELFPAY ==
[2025-01-06] VITALS (7 sets, daily range): BP systolic 108–174; BP diastolic 60–112; PULSE 68–91; RESP 13–22; TEMP 36.1–36.6; O2SAT 96–100; BMI 22.4
--- NOTE | 2025-01-06 10:54 | RAD_ITS ---
PROCEDURE: CHEST PA AND LATERAL REASON FOR EXAM: Cough. TECHNIQUE: PA and lateral chest. COMPARISON: Chest x-ray of 12/25/2024. RAD/Chest PA and Lateral IMPRESSION: Of the left lower lung zone, somewhat more conspicuous area of airspace disease is concerning for presence of Pneumonitis. Underlying chronic lung changes are seen. No acute right-sided changes are noted. No evidence of pulmonary edema. No pleural effusion or pneumothorax is seen. The cardiomediastinal silhouette is stable, without evidence of cardiomegaly. No interval osseous change is seen. Reading Location: [id number]
--- NOTE | 2025-01-06 10:54 | EKG12_ITS ---
Test Reason : SOB/CP Blood Pressure : */* mmHG Vent. Rate : 82 BPM Atrial Rate : 82 BPM P-R Int : 156 ms QRS Dur : 90 ms QT Int : 364 ms P-R-T Axes : 77 71 63 degrees QTcB Int : 425 ms Normal sinus rhythm Normal ECG Confirmed by GARLAND KING, ALEX ([id number]), writer editor FILI CASTILLO ([id number]) on 01/08/2025 12:56:16 PM Referred By: Macario Messer Confirmed By: ALEX HAQUE MD
--- NOTE | 2025-01-06 10:55 | ED.VIS.DYS ---
HPI History of Present Illness Chief Complaint: Shortness of Breath Narrative Narrative: 59-year-old female presents with cough, shortness of breath, that she has had for the last few weeks. Of note, she states that she was admitted to the hospital recently and has been out for a few days. She cannot really remember how long. She was admitted for influenza and low oxygen level. She states she spoke to someone at [facility], and since she had refused blood thinners when she was admitted, there is concern that she might have a blood clot in her lungs or pneumonia. She denies any fevers or chills but states she has had a cough. She is a smoker. She denies any leg swelling. She states that she refused the blood thinners when she was an inpatient in the hospital because because of her coronary artery disease the blood thinners tore up her stomach previously. [facility] Medical History Hypoxia Schizophrenia Anxiety Asthma Coronary artery disease Hypertension Rheumatoid arthritis High cholesterol Edentulous Smoker Emphysema, unspecified History of stress test Cardiology follow-up encounter Ulcerative colitis History of non-ST elevation myocardial infarction (NSTEMI) (08/10/21) Barretts esophagus Chronic constipation Irritable bowel syndrome with diarrhea Takotsubo cardiomyopathy (08/10/21) Post-menopausal Wears glasses Back pain Difficulty swallowing Gastric reflux Shortness of breath on exertion Leg cramps History of Holter monitoring History of echocardiogram Eloped from emergency department Intermittent palpitations Chest pain, non-cardiac Abdominal pain Depression Former smoker Myocardial infarct Asthma-COPD overlap syndrome Chest pain of uncertain etiology Headache Anxiety disorder Chronic left-sided thoracic back pain Adverse drug reaction COPD (chronic obstructive pulmonary disease) Shortness of breath 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) Ischemic cardiomyopathy Nicotine dependence Essential (primary) hypertension History of ST elevation myocardial infarction (STEMI) (12/18/20) Atherosclerotic heart disease of [place] coronary artery without angina pectoris GERD (gastroesophageal reflux disease) Borderline personality disorder Bipolar affective disorder Home Medications ?Medication ?Instructions ?Recorded ?Last Taken ?Type aspirin 81 mg tablet,delayed 81 mg PO QODAY HEALTH MAINTENANCE 07/13/21 08/31/23 History release (Adult Low Dose Aspirin) fluticasone propionate 50 2 spray intranasal DAILY PRN 10/29/21 Unknown History mcg/actuation nasal Allergy Symptoms spray,suspension (Flonase Allergy Relief) spacer #1 ea 05/23/22 Unknown Rx lorazepam 0.5 mg tablet 0.5 mg PO DAILY PRN anxiety 09/04/23 Unknown History potassium chloride 20 mEq 20 meq PO .QOD #30 tabs 04/03/24 Unknown Rx tablet,extended release cholecalciferol (vitamin D3) 50 50 mcg PO QDAY 04/09/24 Unknown History mcg (2,000 unit) capsule (Vitamin D3) fluoxetine 20 mg capsule 20 mg PO QDAY 04/09/24 Unknown History lamotrigine 25 mg tablet 25 mg PO DAILY 04/09/24 Unknown History magnesium 200 mg tablet 200 mg PO QWEEK 04/09/24 Unknown History albuterol sulfate 90 mcg/actuation 2 inh inhalation Q6H PRN shortness 05/11/24 Unknown Rx aerosol inhaler (Ventolin HFA) of breath or wheezing #8.5 grams doxazosin 1 mg tablet 1 mg PO DAILY #90 tabs 06/22/24 Unknown Rx budesonide 160 mcg-glycopyr 9 2 inh inhalation BID #3 ea 08/04/24 Unknown Rx mcg-formot 4.8 mcg/actuation HFA inhaler (Breztri Aerosphere) codeine 10 mg-guaifenesin 100 mg/5 10 ml PO 4X/DAY PRN flu symptoms 7 12/22/24 Unknown Rx mL oral liquid (Guaifenesin AC) days #280 mL fluoxetine 10 mg capsule (Prozac) 10 mg PO DAILY 12/22/24 Unknown History ondansetron 4 mg disintegrating 4 mg PO TID PRN nausea and 12/22/24 Unknown Rx tablet vomiting #21 tabs prednisone 20 mg tablet 40 mg (2 x 20 mg) PO DAILY 7 days 12/22/24 Unknown Rx #14 tabs azithromycin 250 mg tablet See Rx Instructions PO .COMPLEX #6 01/06/25 Unknown Rx tabs prednisone 20 mg tablet 40 mg (2 x 20 mg) PO DAILY #10 tabs 01/06/25 Unknown Rx Allergy/AdvReac Type Severity Reaction Status Date / Time morphine Allergy Hives Verified 12/25/24 12:36 amlodipine AdvReac Intermediate chest Verified 12/25/24 12:36 pain and cannot breathe carvedilol (From Coreg) AdvReac Intermediate throat Verified 12/25/24 12:36 closing up and chest pressure citalopram (From Celexa) AdvReac NAUSEATED Verified 12/25/24 12:36 AND IRRITABLE lisinopril AdvReac SOB, chest Verified 12/25/24 12:36 tightness,throat closing venlafaxine (From Effexor) AdvReac DIDN'T Verified 12/25/24 12:36 WORK Family History Father CAD (coronary artery disease) Myocardial infarction Surgical History History of esophagogastroduodenoscopy (EGD) History of cardiac catheterization (08/11/21) H/O section History of left heart catheterization (05/17/21) History of coronary artery stent placement (12/18/20) Social History household members: none Smoking Status: Current some day smoker tobacco type: cigarettes alcohol intake: never substance use type: does not use caffeine: Yes Type: coffee Number of servings: 2 ROS ROS ED ROS Narrative Review of systems positive for cough, shortness of breath, with related chest pain. Denies fevers or chills. No leg swelling. No nausea or vomiting. No exacerbating or alleviating factors. EXAM Physical Exam Narrative Exam Narrative: Afebrile. Vital signs noted. Nontoxic-appearing. Cardiovascular examination reveals a regular rate and rhythm. Lungs are clear to auscultation bilaterally. Abdomen is soft and nontender with positive bowel sounds. No guarding or rebound. Neurological examination is nonfocal and nonlateralizing. Moves all extremities. No pedal edema. Const Vital Signs: 01/06/25 10:29 01/06/25 10:51 01/06/25 11:32 Temperature 97 F L Temperature Source Temporal Pulse Rate 91 Respiratory Rate 22 H Respiratory Effort Normal Respiratory Depth Normal Respiratory Pattern Normal Blood Pressure 174/112 H Blood Pressure Mean 132 Pulse Ox 100 96 Oxygen Delivery Method Room Air Room Air 01/06/25 11:32 01/06/25 11:34 01/06/25 12:23 Temperature 97.1 F L Temperature Source Oral Pulse Rate 69 68 71 Respiratory Rate 13 20 H 17 Respiratory Effort Respiratory Depth Respiratory Pattern Blood Pressure 108/69 108/60 159/86 H Blood Pressure Mean 82 76 110 Pulse Ox 96 96 98 Oxygen Delivery Method Room Air Room Air Room Air 01/06/25 13:00 01/06/25 13:13 01/06/25 13:31 Temperature 98 F Temperature Source Pulse Rate 75 84 72 Respiratory Rate 19 H 15 19 H Respiratory Effort Respiratory Depth Respiratory Pattern Blood Pressure 130/74 H 150/80 H 155/89 H Blood Pressure Mean 92 103 111 Pulse Ox 97 98 96 Oxygen Delivery Method Room Air Room Air MDM MDM MDM Narrative Medical decision making narrative: I reviewed the patient's prior records. She was actually seen at the end of November and admitted on the . She had a CTA of the chest performed which was negative for PE. She was discharged on December 27, approximately 10 days ago. Differential diagnosis does include pneumonia versus pneumothorax versus pulmonary embolism. I have very low suspicion for pulmonary embolism but I will obtain a D-dimer to help rule that out. She is not tachycardic currently, she is afebrile, and her pulse ox is 100% on room air. EKG was obtained and interpreted by myself independently as normal sinus rhythm at 82 bpm without ectopy or acute ST changes. No STEMI. I will also obtain a chest x-ray to rule out pneumonia or pneumothorax. History and physical does not support pneumothorax however. I reviewed her laboratory work and she has normal white count of 6.4 with hemoglobin 12.8, hematocrit 39.3, platelet count slightly elevated 490 which may be more of an acute phase reactant. High-sensitivity troponin normal at 29. D-dimer is negative at 0.41. I do not feel that she needs another CTA for pulmonary embolism. Chloride slightly elevated at 109 which I think is nonspecific. Chest x-ray interpreted by myself does not show pneumothorax or consolidation. I reviewed the radiology report which comments on pneumonitis possibly. At this point in time, she has normal pulse ox. She will continue her inhalers at home. I wrote her prescriptions for steroid burst as this may be more COPD, and she will be covered with azithromycin Z-Rafael. I feel she can be discharged safely home with follow-up. Return instructions reviewed. Disposition is discharged home in stable condition. History & Record Review Discussion w/independent historian: Patient Lab Data Attestation: I reviewed the patient's lab results. Labs: Laboratory Results - last 24 hr 01/06/25 11:05 WBC 6.4 RBC 4.44 Hgb 12.8 Hct 39.3 MCV 88.5 MCH 28.8 MCHC 32.6 RDW Std Deviation 44.4 H RDW Coeff of Dona 13.7 Plt Count 490 H MPV 9.8 Immature Gran % (Auto) 0.500 Neut % (Auto) 61.5 Lymph % (Auto) 29.3 [place] % (Auto) 7.1 Eos % (Auto) 1.1 Baso % (Auto) 0.5 Absolute Neuts (auto) 3.9 Absolute Lymphs (auto) 1.86 Nucleated RBC % 0 D-Dimer Quant (PE/DVT) 0.41 Sodium 139 Potassium 3.9 Chloride 109 H Carbon Dioxide 26.0 Anion Gap 5 BUN 11 Creatinine 0.65 Estim Creat Clear Calc 71.19 Est GFR (MDRD) Af Amer 121 Est GFR (MDRD) Non-Af 100 BUN/Creatinine Ratio 17.0 Glucose 77 Calcium 9.4 Troponin I High Sens 29 Radiography Diagnostic Testing: Clinical Impression(s) from Imaging Studies Chest X-Ray 01/06/25 10:54 IMPRESSION: Of the left lower lung zone, somewhat more conspicuous area of airspace disease is concerning for presence of Pneumonitis. Underlying chronic lung changes are seen. No acute right-sided changes are noted. No evidence of pulmonary edema. No pleural effusion or pneumothorax is seen. The cardiomediastinal silhouette is stable, without evidence of cardiomegaly. No interval osseous change is seen. Reading Location: [address] Discharge Plan Triage Chief Complaint: Shortness of Breath ED Provider: Macario Messer Dx/Rx/DC Orders Clinical Impression: COPD (chronic obstructive pulmonary disease), BOYER (dyspnea on exertion) Instructions: ED COPD Flare, ED Dyspnea Prescriptions: New azithromycin 250 mg tablet See Rx Instructions .ROUTE .COMPLEX Qty: 6 0RF Rx Instructions: For 250 mg dose pack: take 500 mg today (day 1), then 250 mg for 4 days (days 2-5) prednisone 20 mg tablet 40 mg PO DAILY Qty: 10 0RF No Action aspirin [Adult Low Dose Aspirin] 81 mg tablet,delayed release (DR/EC) 81 mg PO QODAY Rx Instructions: 81 mg PO; 3x week lamotrigine 25 mg tablet 25 mg PO DAILY fluoxetine 20 mg capsule 20 mg PO QDAY cholecalciferol (vitamin D3) [Vitamin D3] 50 mcg (2,000 unit) capsule 50 mcg PO QDAY Breztri Aerosphere 160-9-4.8 mcg/actuation HFA aerosol inhaler 2 inh inhalation BID Qty: 3 3RF fluticasone propionate [Flonase Allergy Relief] 50 mcg/actuation spray,suspension 2 spray intranasal DAILY PRN (Reason: Allergy Symptoms) Rx Instructions: administer into each nostril lorazepam 0.5 mg tablet 0.5 mg PO DAILY PRN (Reason: anxiety) Patient Comments: Take 1 tablet by mouth once daily as needed for up to 30 days. magnesium 200 mg tablet 200 mg PO QWEEK fluoxetine [Prozac] 10 mg capsule 10 mg PO DAILY prednisone 20 mg tablet 40 mg PO DAILY 7 Days Qty: 14 0RF codeine-guaifenesin [Guaifenesin AC] 10-100 mg/5 mL liquid 10 ml PO 4X/DAY PRN (Reason: flu symptoms) 7 Days Qty: 280 0RF ondansetron 4 mg tablet,disintegrating 4 mg PO TID PRN (Reason: nausea and vomiting) Qty: 21 0RF (DME) spacer See Rx Instructions .ROUTE .MEDSUPPLY Qty: 1 0RF Rx Instructions: As directed potassium chloride 20 mEq tablet extended release 20 meq PO .QOD Qty: 30 6RF albuterol sulfate [Ventolin HFA] 90 mcg/actuation HFA aerosol inhaler 2 inh inhalation Q6H PRN (Reason: shortness of breath or wheezing) Qty: 8.5 11RF doxazosin 1 mg tablet 1 mg PO DAILY Qty: 90 3RF Primary Care Provider: Ellis Crandall Referrals: Ellis Crandall MD [Primary Care Provider] - 5-7 Days Activity Restrictions/Additional Instructions: Continue your albuterol MDI and take medications as directed. Return with increased difficulty breathing, new or worsening symptoms. Print Language: German Disposition Disposition: Home, Self Care
[2025-01-06 11:23] LABS: Absolute Lymphocyte Count 1.86 X10^3/uL (0.83-4.51); Absolute Neutrophil Count 3.9 X10^3/uL (2.0-7.7); Basophil# 0.03 X10^3/uL; Basophil% 0.5 % (0-1); Eosinophil# 0.07 X10^3/uL; Eosinophils% 1.1 % (0-5); Hematocrit 39.3 % (37-47); Hemoglobin 12.8 g/dL (12.0-15.0); Lymphocyte # 1.86 X10^3/ul (0.83-4.51); Lymphocyte % 29.3 % (19-41); Mean Corp Hgb Conc 32.6 g/dL (32-36); Mean Corpuscular Hgb 28.8 pg (27.0-32.0); Mean Corpuscular Volume 88.5 fL (81-99); Mean Platelet Vol. 9.8 fl (6.2-12.0); Monocyte# 0.45 X10^3/uL; Monocyte% 7.1 % (0-10); NRBC Flagged by Analyzer 0 % (0-5); Neutrophil # 3.91 X10^3/uL (2.7-7.7); Neutrophil % 61.5 % (47-70); Platelet Count 490 K/mm3 (150-450); RBC Distribution Width CV 13.7 % (11.6-14.6); RBC Distribution Width SD 44.4 fl (35.1-43.9); Red Blood Count 4.44 M/mm3 (4.2-5.4); White Blood Count 6.4 K/mm3 (4.4-11.0)
[2025-01-06 11:36] LABS: D-Dimer Quantitative (DVT/PE) 0.41 FEU/ug/m (0.27-0.49)
[2025-01-06 11:42] LABS: Anion Gap 5 (5-15); BUN 11 mg/dL (7-18); Calcium,Total 9.4 mg/dL (8.5-10.1); Chloride 109 mmol/L (98-107); Creatinine, Serum 0.65 mg/dL (0.55-1.02); EST Glomerular Filtration Rate 100 mL/min (>60); Est Glom Filt Rate - Afr Amer 121 mL/min (>60); Estimated Creatinine Clearance 71.19 ml/min; Glucose 77 mg/dL (74-106); Potassium 3.9 mmol/L (3.5-5.1); Sodium Level 139 mmol/L (136-145); Troponin-I HS 29 pg/mL (3.0-54.0)
== END 2025-01-06 13:53 | disposition home or self-care (01) ==
PROVIDERS: Emergency Provider Emergency Medicine; PCP Family Medicine; Referring Provider Emergency Medicine; Visit Provider Emergency Medicine
DX: J44.9 Chronic obstructive pulmonary disease, unspecified (principal); F20.9 Schizophrenia, unspecified; F31.9 Bipolar disorder, unspecified; I10 Essential (primary) hypertension; I25.10 Atherosclerotic heart disease of native coronary artery without angina pectoris; I25.2 Old myocardial infarction; Z95.5 Presence of coronary angioplasty implant and graft; F17.210 Nicotine dependence, cigarettes, uncomplicated; R06.00 Dyspnea, unspecified
CPT/HCPCS: 71046; 80048; 84484; 85025; 85379; 93005; 99284; A4216

== ENCOUNTER 2025-02-03 13:14 | Day surgery (SDC) | payer MEDICARE, MEDICAID, SELFPAY ==
--- NOTE | 2025-02-02 16:26 | PAT.ANESEVAL ---
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 When Was Last Pacemaker Check QUESTION #4 FULL TEXT: You/Your Family Experience fever (hyperthermia) with Anesthesia Last Oral Intake Last Oral intake: Last Oral Intake NPO since Meds taken in AM with sips of water? Meds patient instructed to take am of surgery PONV PONV - mountain services manager: PONV - mountain services manager Female Yes 02/02/25 14:31 HX of Motion Sickness Yes 02/02/25 14:31 HX of N/V After Surgery No 02/02/25 14:31 Non-Smoker No 02/02/25 14:31 Duration of Surgery greater No 02/02/25 14:31 than 60 minutes Number of Risk Factors 2 02/02/25 14:31 PONV Score Moderate Risk 02/02/25 14:31 Height & Weight Height & Weight: Anesthesia: Height & Weight Height 5 ft 1.81 in 02/02/25 08:33 Respiratory Assessment Respiratory Assessment - mountain services manager: Respiratory Tract Infection Hx - mountain services manager Hx Respiratory Tract Infection No 02/02/25 14:31 STOP Sleep Apnea STOP Sleep Apnea - mountain services manager: STOP Sleep Apnea - mountain services manager Hx Hypertension Yes 02/02/25 14:31 Hx Sleep Apnea No 02/02/25 14:31 CPAP No 02/02/25 14:31 BIPAP Do you snore loudly (louder No 02/02/25 14:31 than talking or can be heard Do you often feel tired/ No 02/02/25 14:31 fatigued/ sleepy during daytime? Has anyone observed you stop No 02/02/25 14:31 breathing during sleep? STOP Results Negative 02/02/25 14:31 QUESTION #5 FULL TEXT : Do you snore loudly (louder than talking or can be heard through closed doors)? Tobacco Use History Tobacco Use History - mountain services manager: Tobacco Use History - mountain services manager Tobacco Use Cigarettes 04/06/21 11:45 Smoking Status Current some day smoker 02/02/25 14:31 Hx Tobacco Use Yes 02/02/25 14:31 Years Smoking Packs Smoked per Day Smoking Cessation Date was within the last 15 years Hx Smoking Cessation Date Hx Smoking Cessation No 02/02/25 14:31 Counseling Hematologic Medial History Hematologic Hx - mountain services manager: Hematologic Medical Hx - survey engineer Hx of Blood Transfusion No 02/02/25 14:31 Hx of Transfusion in last 3 No 02/02/25 14:31 Months Date of Last Transfusion (if within last 3 months) Ever experience any problems No 02/02/25 14:31 with transfusion(s)? Specify any problems Hx of Preganancy in last 3 No 02/02/25 14:31 Months Nurse Filling Out Transfusion ROMIE 02/02/25 14:31 & Questions: Date: 02/02/25 02/02/25 14:31 Time: 14:34 02/02/25 14:31 Patient unable to answer at this time (ie. confused, unrespo /Reproduction History /Reproductive History - mountain services manager: /Reproductive Hx- mountain services manager Hx Now No 02/02/25 14:31 Gestational Age (in weeks): EDC: Hx Hx Para Hx Section SAB No 02/02/25 14:31 [facility] Medical History (Updated 02/02/25 @ 14:42 by Rhonda Tracy) Thyroid disease Excessive bleeding Wears dentures History of hiatal hernia Hypoxia Anxiety Asthma Coronary artery disease Hypertension Rheumatoid arthritis High cholesterol Edentulous Smoker Emphysema, unspecified History of stress test Cardiology follow-up encounter Ulcerative colitis History of non-ST elevation myocardial infarction (NSTEMI) (08/10/21) Barretts esophagus Chronic constipation Irritable bowel syndrome with diarrhea Takotsubo cardiomyopathy (08/10/21) Post-menopausal Wears glasses Back pain Difficulty swallowing Gastric reflux Shortness of breath on exertion Leg cramps History of Holter monitoring History of echocardiogram Eloped from emergency department Intermittent palpitations Chest pain, non-cardiac Abdominal pain Depression Former smoker Myocardial infarct Asthma-COPD overlap syndrome Chest pain of uncertain etiology Headache Anxiety disorder Chronic left-sided thoracic back pain Adverse drug reaction COPD (chronic obstructive pulmonary disease) Shortness of breath 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) Ischemic cardiomyopathy Nicotine dependence Essential (primary) hypertension History of ST elevation myocardial infarction (STEMI) (12/18/20) Atherosclerotic heart disease of [place] coronary artery without angina pectoris GERD (gastroesophageal reflux disease) Borderline personality disorder Bipolar affective disorder Home Medications ?Medication ?Instructions ?Recorded ?Last Taken ?Type aspirin 81 mg tablet,delayed 81 mg PO QODAY HEALTH MAINTENANCE 07/13/21 01/29/25 History release (Adult Low Dose Aspirin) fluticasone propionate 50 2 spray intranasal DAILY PRN 10/29/21 Unknown History mcg/actuation nasal Allergy Symptoms spray,suspension (Flonase Allergy Relief) spacer #1 ea 05/23/22 Unknown Rx lorazepam 0.5 mg tablet 0.5 mg PO DAILY PRN anxiety 09/04/23 Unknown History cholecalciferol (vitamin D3) 50 50 mcg PO QDAY 04/09/24 Unknown History mcg (2,000 unit) capsule (Vitamin D3) lamotrigine 25 mg tablet 25 mg PO DAILY 04/09/24 Unknown History magnesium 200 mg tablet 200 mg PO QWEEK 04/09/24 Unknown History albuterol sulfate 90 mcg/actuation 2 inh inhalation Q6H PRN shortness 05/11/24 Unknown Rx aerosol inhaler (Ventolin HFA) of breath or wheezing #8.5 grams doxazosin 1 mg tablet 1 mg PO DAILY #90 tabs 06/22/24 Unknown Rx budesonide 160 mcg-glycopyr 9 2 inh inhalation BID #3 ea 08/04/24 Unknown Rx mcg-formot 4.8 mcg/actuation HFA inhaler (Breztri Aerosphere) fluoxetine 10 mg capsule (Prozac) 10 mg PO DAILY 12/22/24 Unknown History esomeprazole magnesium 40 mg 40 mg PO QDAY 01/29/25 Unknown History capsule,delayed release (Nexium) rosuvastatin 5 mg tablet (Crestor) 5 mg PO QDAY 01/29/25 Unknown History famotidine 40 mg tablet 40 mg PO QDAY 02/02/25 Unknown History potassium chloride 20 mEq 20 meq PO DAILY 02/02/25 Unknown History tablet,extended release Allergy/AdvReac Type Severity Reaction Status Date / Time morphine Allergy Hives Verified 02/02/25 14:26 amlodipine AdvReac Intermediate chest Verified 02/02/25 14:26 pain and cannot breathe carvedilol (From Coreg) AdvReac Intermediate throat Verified 02/02/25 14:26 closing up and chest pressure citalopram (From Celexa) AdvReac NAUSEATED Verified 02/02/25 14:26 AND IRRITABLE lisinopril AdvReac SOB, chest Verified 02/02/25 14:26 tightness,throat closing venlafaxine (From Effexor) AdvReac DIDN'T Verified 02/02/25 14:26 WORK Family History Father CAD (coronary artery disease) Myocardial infarction Surgical History History of esophagogastroduodenoscopy (EGD) History of cardiac catheterization (08/11/21) H/O section History of left heart catheterization (05/17/21) History of coronary artery stent placement (12/18/20) Social History household members: none Smoking Status: Current some day smoker tobacco type: cigarettes alcohol intake: never substance use type: does not use caffeine: Yes Type: coffee Number of servings: 2 Audit: Pertinent Findings Pertinent Findings EKG Perinent findings: Normal sinus rhythm Normal ECG Stress test pertinent findings: Normal exercise myocardial perfusion stress test at a moderate workload Preserved ejection fraction. Echo (EF%) pertinent findings: 55% Additional pertinent findings: She has a history of coronary artery disease status post acute ST elevated myocardial infarction involving the inferior wall with drug-eluting stent placement to proximal RCA. Her heart catheterization on 12/18/2020 showed left main is angiographically normal, LAD with mid 20-30% stenosis in diagonal 1 with 50-60% stenosis, and RCA is a large dominant vessel and occluded proximally. She continued to have chest pain and underwent heart catheterization on 01/25/2021 that showed previously placed RCA stent as patent. Patient was evaluated at [facility] [place] in July 2021 for non-ST elevated myocardial infarction. She underwent echocardiogram that showed ejection fraction of 35%. She underwent a CT angiogram that was unremarkable. Due to her ejection fraction changes, she underwent a heart catheterization that showed nonobstructive coronary artery disease. Her changes were consistent with Takotsubo cardiomyopathy. She was started on diltiazem therapy. She also has history of ischemic cardiomyopathy, Takotsubo cardiomyopathy, hypertension, COPD, and previous smoking use. Therefore in 2020 she underwent an angiogram in November, January, April, July. All of these did not demonstrate any significant stenosis. She was seen in the emergency department on 04/05/2024 for dizziness. Her EKG shows sinus rhythm at 70 bpm without acute changes. 2 days prior she was at the emergency department and had a negative high sensitivity troponin. She had chest CT scan and stress test in April 2024 that were negative for concerns. Current Visit Impressions Current Visit Impressions: [place] to have cardiac clearance for this patient. She is at MODERATE risk for adverse events during her procedure Recommendation Anesthesia Recommendation Anesthesia recommendation: F/U recommended (If cardiac clearance is possible, would seek. )
--- NOTE | 2025-02-02 17:05 | PAT.ANE_ITS ---
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 When Was Last Pacemaker Check QUESTION #4 FULL TEXT: You/Your Family Experience fever (hyperthermia) with Anesthesia Last Oral Intake Last Oral intake: Last Oral Intake NPO since Meds taken in AM with sips of water? Meds patient instructed to take am of surgery PONV PONV - oil well services dispatcher: PONV - oil well services dispatcher Female Yes 02/02/25 14:31 HX of Motion Sickness Yes 02/02/25 14:31 HX of N/V After Surgery No 02/02/25 14:31 Non-Smoker No 02/02/25 14:31 Duration of Surgery greater No 02/02/25 14:31 than 60 minutes Number of Risk Factors 2 02/02/25 14:31 PONV Score Moderate Risk 02/02/25 14:31 Height & Weight Height & Weight: Anesthesia: Height & Weight Height 5 ft 1.81 in 02/02/25 08:33 Respiratory Assessment Respiratory Assessment - oil well services dispatcher: Respiratory Tract Infection Hx - oil well services dispatcher Hx Respiratory Tract Infection No 02/02/25 14:31 STOP Sleep Apnea STOP Sleep Apnea - oil well services dispatcher: STOP Sleep Apnea - oil well services dispatcher Hx Hypertension Yes 02/02/25 14:31 Hx Sleep Apnea No 02/02/25 14:31 CPAP No 02/02/25 14:31 BIPAP Do you snore loudly (louder No 02/02/25 14:31 than talking or can be heard Do you often feel tired/ No 02/02/25 14:31 fatigued/ sleepy during daytime? Has anyone observed you stop No 02/02/25 14:31 breathing during sleep? STOP Results Negative 02/02/25 14:31 QUESTION #5 FULL TEXT : Do you snore loudly (louder than talking or can be heard through closed doors)? Tobacco Use History Tobacco Use History - oil well services dispatcher: Tobacco Use History - oil well services dispatcher Tobacco Use Cigarettes 04/06/21 11:45 Smoking Status Current some day smoker 02/02/25 14:31 Hx Tobacco Use Yes 02/02/25 14:31 Years Smoking Packs Smoked per Day Smoking Cessation Date was within the last 15 years Hx Smoking Cessation Date Hx Smoking Cessation No 02/02/25 14:31 Counseling Hematologic Medial History Hematologic Hx - oil well services dispatcher: Hematologic Medical Hx - histologic technician Hx of Blood Transfusion No 02/02/25 14:31 Hx of Transfusion in last 3 No 02/02/25 14:31 Months Date of Last Transfusion (if within last 3 months) Ever experience any problems No 02/02/25 14:31 with transfusion(s)? Specify any problems Hx of Preganancy in last 3 No 02/02/25 14:31 Months Nurse Filling Out Transfusion ROMIE 02/02/25 14:31 & Questions: Date: 02/02/25 02/02/25 14:31 Time: 14:34 02/02/25 14:31 Patient unable to answer at this time (ie. confused, unrespo /Reproduction History /Reproductive History - oil well services dispatcher: /Reproductive Hx- oil well services dispatcher Hx Now No 02/02/25 14:31 Gestational Age (in weeks): EDC: Hx Hx Para Hx Section SAB No 02/02/25 14:31 [facility] Medical History (Updated 02/02/25 @ 14:42 by Rhonda Tracy) Thyroid disease Excessive bleeding Wears dentures History of hiatal hernia Hypoxia Anxiety Asthma Coronary artery disease Hypertension Rheumatoid arthritis High cholesterol Edentulous Smoker Emphysema, unspecified History of stress test Cardiology follow-up encounter Ulcerative colitis History of non-ST elevation myocardial infarction (NSTEMI) (08/10/21) Barretts esophagus Chronic constipation Irritable bowel syndrome with diarrhea Takotsubo cardiomyopathy (08/10/21) Post-menopausal Wears glasses Back pain Difficulty swallowing Gastric reflux Shortness of breath on exertion Leg cramps History of Holter monitoring History of echocardiogram Eloped from emergency department Intermittent palpitations Chest pain, non-cardiac Abdominal pain Depression Former smoker Myocardial infarct Asthma-COPD overlap syndrome Chest pain of uncertain etiology Headache Anxiety disorder Chronic left-sided thoracic back pain Adverse drug reaction COPD (chronic obstructive pulmonary disease) Shortness of breath 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) Ischemic cardiomyopathy Nicotine dependence Essential (primary) hypertension History of ST elevation myocardial infarction (STEMI) (12/18/20) Atherosclerotic heart disease of [place] coronary artery without angina pectoris GERD (gastroesophageal reflux disease) Borderline personality disorder Bipolar affective disorder Home Medications ?Medication ?Instructions ?Recorded ?Last Taken ?Type aspirin 81 mg tablet,delayed 81 mg PO QBeyond [employer] ADITHYA NTENANCE 07/13/21 01/29/25 History release (Adult Low Dose Aspirin) fluticasone propionate 50 2 spray intranasal DAILY PRN 10/29/21 Unknown History mcg/actuation nasal Allergy Symptoms spray,suspension (Flonase Allergy Relief) spacer #1 ea 05/23/22 Unknown Rx lorazepam 0.5 mg tablet 0.5 mg PO DAILY PRN anxiety 09/04/23 Unknown History cholecalciferol (vitamin D3) 50 50 mcg PO QDAY 4 Unknown History mcg (2,000 unit) capsule (Vitamin D3) lamotrigine 25 mg tablet 25 mg PO DAILY 04/09/24 Unkn own History magnesium 200 mg tablet 200 mg PO QWEEK 04/09/24 Unk nown History albuterol sulfate 90 mcg/actuation 2 inh inhalation Q6 H PRN shortness 05/11/24 Unknown Rx aerosol inhaler (Ventolin HFA) of breath or wheezing # 8.5 grams doxazosin 1 mg tablet 1 mg PO DAILY #90 tabs 06/22 Unknown Rx budesonide 160 mcg-glycopyr 9 2 inh inhalation BID #3 ea 08/04/24 Unknown Rx mcg-formot 4.8 mcg/actuation HFA inhaler (Breztri Aerosphere) fluoxetine 10 mg capsule (Prozac) 10 mg PO DAILY 12/22 Unknown History esomeprazole magnesium 40 mg 40 mg PO QDAY 01/29/25 Un known History capsule,delayed release (Nexium) rosuvastatin 5 mg tablet (Crestor) 5 mg PO QDAY Unknown History famotidine 40 mg tablet 40 mg PO QDAY 02/02/25 Unkno wn History potassium chloride 20 mEq 20 meq PO DAILY 02/02/25 Unk nown History tablet,extended release Allergy/AdvReac Type Severity Reaction Status Date / Time morphine Allergy Hives Verified 02/02/25 14:26 amlodipine AdvReac Intermediate chest Verified 02/02/25 14:26 pain and cannot breathe carvedilol (From Coreg) AdvReac Intermediate throat Verified 02/02/25 14:26 closing up and chest pressure citalopram (From Celexa) AdvReac NAUSEATED Verified 02/02/25 14:26 AND IRRITABLE lisinopril AdvReac SOB, chest Verified 02/02/25 14:26 tightness,throat closing venlafaxine (From Effexor) AdvReac DIDN'T Verified 02/02/25 14:26 WORK Family History Father CAD (coronary artery disease) Myocardial infarction Surgical History History of esophagogastroduodenoscopy (EGD) History of cardiac catheterization (08/11/21) H/O section History of left heart catheterization (05/17/21) History of coronary artery stent placement (12/18/20) Social History household members: none Smoking Status: Current some day smoker tobacco type: cigarettes alcohol intake: never substance use type: does not use caffeine: Yes Type: coffee Number of servings: 2 Audit: Pertinent Findings HISTORY of Pertinent Findings History of Pertinent Findings: EKG Pertinent Findings EKG Perinent findings Normal sinus rhythm 02/02/25 16:26 Normal ECG Stress Test Pertinent Findings Stress test pertinent findings Normal exercise myocardial 02/02/25 16:26 perfusion stress test at a moderate workload Preserved ejection fraction. Echo Pertinent Findings Echo (EF%) pertinent findings 55% 02/02/25 16:27 Additional Pertinent Findings Additional pertinent findings She has a history of 02/02/25 16:29 coronary artery disease status post acute ST elevated myocardial infarction involving the inferior wall with drug- eluting stent placement to proximal RCA. Her heart catheterization on 12/18/2020 showed left main is angiographically normal, LAD with mid 20-30% stenosis in diagonal 1 with 50-60% stenosis, and RCA is a large dominant vessel and occluded proximally. She continued to have chest pain and underwent heart catheterization on 01/25/2021 that showed previously placed RCA stent as patent. Patient was evaluated at [facility] in July 2021 for non-ST elevated myocardial infarction. She underwent echocardiogram that showed ejection fraction of 35%. She underwent a CT angiogram that was unremarkable. Due to her ejection fraction changes, she underwent a heart catheterization that showed nonobstructive coronary artery disease. Her changes were consistent with Takotsubo cardiomyopathy. She was started on diltiazem therapy . She also has history of ischemic cardiomyopathy, Takotsubo cardiomyopathy, hypertension, COPD, and previous smoking use. Therefore in 2020 she underwent an angiogram in November, January, April, July. All of these did not demonstrate any significant stenosis. She was seen in the emergency department on 04/05/2024 for dizziness. Her EKG shows sinus rhythm at 70 bpm without acute changes. 2 days prior she was at the emergency department and had a negative high sensitivity troponin. She had chest CT scan and stress test in April 2024 that were negative for concerns. Pertinent Findings EKG Perinent findings: Normal sinus rhythm Normal ECG Stress test pertinent findings: Normal exercise myocardial perfusion stress test at a moderate workload Preserved ejection fraction. Echo (EF%) pertinent findings: 55% Additional pertinent findings: She has a history of coronary artery disease status post acute ST elevated myocardial infarction involving the inferior wall with drug-eluting stent placement to proximal RCA. Her heart catheterization on 12/18/2020 showed left main is angiographically normal, LAD with mid 20-30% stenosis in diagonal 1 with 50-60% stenosis, and RCA is a large dominant vessel and occluded proximally. She continued to have chest pain and underwent heart catheterization on 01/25/2021 that showed previously placed RCA stent as patent. Patient was evaluated at [facility] in July 2021 for non-ST elevated myocardial infarction. She underwent echocardiogram that showed ejection fraction of 35%. She underwent a CT angiogram that was unremarkable. Due to her ejection fraction changes, she underwent a heart catheterization that showed nonobstructive coronary artery disease. Her changes were consistent with Takotsubo cardiomyopathy. She was started on diltiazem therapy. She also has history of ischemic cardiomyopathy, Takotsubo cardiomyopathy, hypertension, COPD, and previous smoking use. Therefore in 2020 she underwent an angiogram in November, January, April, July. All of these did not demonstrate any significant stenosis. She was seen in the emergency department on 04/05/2024 for dizziness. Her EKG shows sinus rhythm at 70 bpm without acute changes. 2 days prior she was at the emergency department and had a negative high sensitivity troponin. She had chest CT scan and stress test in April 2024 that were negative for concerns. Current Visit Impressions Current Visit Impressions: [place] to have cardiac clearance for this patient. She is at MODERATE risk for adverse events during her procedure Recommendation Anesthesia Recommendation Anesthesia recommendation: OPTIMIZED for anesthesia (Patient is cleared to have her anesthetic tomorrow pending physical examination and evaluation by anesthesiologist on day of surgery.)
[2025-02-03] VITALS (10 sets, daily range): BP systolic 130–152; BP diastolic 82–94; PULSE 83–91; RESP 12–18; TEMP 36.2–36.6; O2SAT 91–100; BMI 22.3
--- NOTE | 2025-02-03 13:30 | PCM.HP.STD ---
HPI - General General Date of Admission: 02/03/25 Date of Service: 02/03/25 Chief Complaint: abdominal pain HPI Narrative SJ MOHAN, is a 59 F who presents with the Chief Complaint of abdominal pain Details: SJ MOHAN, is a 59 F who presents to the office today for follow up. Prior workup: ? CT abd/pel 03.26.21 severely emphysematous lung bases; diseased coronary arteries with stents in RCA; multiple hepatic cysts. ? UGI series 03.31.21 Without acute/chronic finding ? EGD 08.14.21 non-severe reflux esophagitis, excessive metaplasia; gastritis. [facility] ED 09.30.21, 10.28.21, 10.29.21, 10.31.21 with epigastric pain and inability to eat. Workup either performed or reviewed with no acute findings. Notes anxiety is not well controlled. [facility] ED 10.28.21 GI *BGI established 10.31.21 heart attack 12.19.00 with start of blood thinners. Following this she began having RUQ abdominal discomfort into her back, epigastric discomfort, lump in her throat. Mylanta, Pepcid, GI cocktail ineffective; PPI, [id number] caused heart palpitations; Carafate caused headache but provides relief. Anxiety is poorly managed, sees provider Narendra who prescribed lamotrigine and Ativan. Start misoprostol ? EGD and colonoscopy 11.29.21 EGD LA Grade A esophagitis, Mcdermott?s +; gastritis. ? Colonoscopy, poor prep; cecal hyperplastic polyp; congested mucosa. OV 12.13.21 postprandially she has sinus congestion and esophageal/stomach pain and nausea with feeling of inability to breath. Chronic constipation continues with 2 small pebble-like BM in the last two weeks. Linzess previously caused diarrhea. Start Trulance (failed) ? Biochemical 12.13.21 celiac WNL OV 01.16.22 Gluten free diet start and is now having normal, daily BM. Start L-glutamate. ? US 03.02.22 multiple hepatic cysts; [id number] gallbladder polyp; right flank mass 4.7x5.9x2.8cm, ?lipoma ? Biochemical 03.12.22 ESR, LDH, CRP, GAME, CHENCHO comp, ANCA, celiac, SHRUTHI without pertinent abnormality ? Stool calprotectin, lactoferrin WNL ? CT abd/pel 07.18.22 IV only (ED) moderate aortoiliac atherosclerotic disease; multiple hepatic cysts OV 07.26.22 worsening epigastric pain. Start pancreatic enzymes ? Biochemical 07.26.22 amylase WNL ? Stool fat, elastase WNL ? Barium swallow 08.17.22 without acute/chronic finding ? GET 09.14.22 35.14minutes (12-56) OV 03.06.23 continues to have epigastric pain. ? HIDA 03.20.23 EF 90%; duodenal-gastric reflux. ? EGD 09.10.23 Mcdermott?s changes, metaplasia neg; medium hiatal hernia; gastritis. [facility] ED 09.11.23 with epigastric pain and intermittent nausea. Treated with IVF and reglan. CT abd/pel 09.11.23 without contrast esophageal wall thickening; emphysematous lung changes; multiple hepatic cysts, stable; colonic diverticulosis; mild degenerative changes of spine; atherosclerosis. OV 11.. reports she is feeling betters though continues to have stomach discomfort and chest discomfort. OV 8..24 pt reports nausea that is off and on, usually after she's eaten. States that she has a formed bm once a month; denies blood in the stool. Pt reports burning epigastric pain all day everyday for the past few years. Pt reports HB at night. Pt reports that she has a lump in her throat that makes it difficult to swallow food. Pt previously had a lump in her throat that went away after her heart attack in 2020 and that is around the time these symptoms began. [facility] ED with complaints of chest pain; cardiac work up wnl OV 09.03.24 pt has not been doing well. She was in the ER yesterday with severe epigastric pain radiating to her back with inability to eat. She had a cardiac work up which was wnl. When she eats she will have a lot of pain and need to lay down. Her constipation has not been well controlled. She tells me she has been unable to go for 7 weeks. Laxatives have not been working. She is feeling exhausted and frustrated that she does not have answers. [facility] ED 09.04.24 abd pain abd/pelvis CT 09.04.24 1. No masses bowel obstruction abscess free fluid or free air. 2. Diffuse wall thickening of the pyloric portion of the stomach. No distinct masses noted. Findings are nonspecific. 3. Moderate to large amount retained formed stool throughout the colon, developing or residual constipation is a consideration. 4. No evidence of appendicitis or diverticulitis. 5. No evidence of renal calcification or obstructive uropathy. 6. No evidence cholelithiasis. 7. Multiple benign hepatic cysts. OV 11 pt reports that she has continued constant aching in her abdomen that is worsened by eating. Pt reports she cut out gluten two weeks ago and is now having a daily bm. Pt is wondering if her hiatal hernia could be the cause of her abd pain. MRCP 11.05.24 1. Normal pancreas and pancreatic duct. 2. No acute abdominal pelvic abnormality. 3. Multiple hepatic cysts unchanged since prior CT. OV 3..25 pt reports that her PCP recently gave her Nexium and that has significantly helped the pain she was having in her back. Pt reports her abdominal aching is now only occasional. Pt reports she was recently hospitalized for pneumonia and that since being discharged she has been having a bm every day. Pt wonders if she is feeling better because she hasn't been smoking. [facility] Medical History Thyroid disease Excessive bleeding Wears dentures History of hiatal hernia Hypoxia Anxiety Asthma Coronary artery disease Hypertension Rheumatoid arthritis High cholesterol Edentulous Smoker Emphysema, unspecified History of stress test Cardiology follow-up encounter Ulcerative colitis History of non-ST elevation myocardial infarction (NSTEMI) (08/10/21) Barretts esophagus Chronic constipation Irritable bowel syndrome with diarrhea Takotsubo cardiomyopathy (08/10/21) Post-menopausal Wears glasses Back pain Difficulty swallowing Gastric reflux Shortness of breath on exertion Leg cramps History of Holter monitoring History of echocardiogram Eloped from emergency department Intermittent palpitations Chest pain, non-cardiac Abdominal pain Depression Former smoker Myocardial infarct Asthma-COPD overlap syndrome Chest pain of uncertain etiology Headache Anxiety disorder Chronic left-sided thoracic back pain Adverse drug reaction COPD (chronic obstructive pulmonary disease) Shortness of breath 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) Ischemic cardiomyopathy Nicotine dependence Essential (primary) hypertension History of ST elevation myocardial infarction (STEMI) (12/18/20) Atherosclerotic heart disease of [place] coronary artery without angina pectoris GERD (gastroesophageal reflux disease) Borderline personality disorder Bipolar affective disorder Home Medications ?Medication ?Instructions ?Recorded ?Last Taken ?Type aspirin 81 mg tablet,delayed 81 mg PO QODAY HEALTH MAINTENANCE 07/13/21 01/29/25 History release (Adult Low Dose Aspirin) fluticasone propionate 50 2 spray intranasal DAILY PRN 10/29/21 Unknown History mcg/actuation nasal Allergy Symptoms spray,suspension (Flonase Allergy Relief) spacer #1 ea 05/23/22 Unknown Rx lorazepam 0.5 mg tablet 0.5 mg PO DAILY PRN anxiety 09/04/23 Unknown History cholecalciferol (vitamin D3) 50 50 mcg PO QDAY 04/09/24 Unknown History mcg (2,000 unit) capsule (Vitamin D3) lamotrigine 25 mg tablet 25 mg PO DAILY 04/09/24 Unknown History magnesium 200 mg tablet 200 mg PO QWEEK 04/09/24 Unknown History albuterol sulfate 90 mcg/actuation 2 inh inhalation Q6H PRN shortness 05/11/24 Unknown Rx aerosol inhaler (Ventolin HFA) of breath or wheezing #8.5 grams doxazosin 1 mg tablet 1 mg PO DAILY #90 tabs 06/22/24 Unknown Rx budesonide 160 mcg-glycopyr 9 2 inh inhalation BID #3 ea 08/04/24 Unknown Rx mcg-formot 4.8 mcg/actuation HFA inhaler (Breztri Aerosphere) fluoxetine 10 mg capsule (Prozac) 10 mg PO DAILY 12/22/24 Unknown History esomeprazole magnesium 40 mg 40 mg PO QDAY 01/29/25 Unknown History capsule,delayed release (Nexium) rosuvastatin 5 mg tablet (Crestor) 5 mg PO QDAY 01/29/25 Unknown History famotidine 40 mg tablet 40 mg PO QDAY 02/02/25 Unknown History potassium chloride 20 mEq 20 meq PO DAILY 02/02/25 Unknown History tablet,extended release Allergy/AdvReac Type Severity Reaction Status Date / Time morphine Allergy Hives Verified 02/02/25 14:26 amlodipine AdvReac Intermediate chest Verified 02/02/25 14:26 pain and cannot breathe carvedilol (From Coreg) AdvReac Intermediate throat Verified 02/02/25 14:26 closing up and chest pressure citalopram (From Celexa) AdvReac NAUSEATED Verified 02/02/25 14:26 AND IRRITABLE lisinopril AdvReac SOB, chest Verified 02/02/25 14:26 tightness,throat closing venlafaxine (From Effexor) AdvReac DIDN'T Verified 02/02/25 14:26 WORK Family History Father CAD (coronary artery disease) Myocardial infarction Surgical History History of esophagogastroduodenoscopy (EGD) History of cardiac catheterization (08/11/21) H/O section History of left heart catheterization (05/17/21) History of coronary artery stent placement (12/18/20) Social History household members: none Smoking Status: Current some day smoker tobacco type: cigarettes alcohol intake: never substance use type: does not use caffeine: Yes Type: coffee Number of servings: 2 ROS Constitutional Constitutional: Denies fatigue, fever(s), poor appetite, weight gain or weight loss Gastrointestinal Gastrointestinal: Denies belching, bloating, change in bowel habits, change in stool character, chewing difficulty, coffee ground emesis, constipation, cramping, diarrhea, dyspepsia, dysphagia, early satiety, excessive flatus, fecal incontinence, heartburn, hematemesis, hematochezia, hemorrhoids, loose stools, melena, nausea, odynophagia, rectal bleeding, tenesmus, vomiting or weight changes Physical Exam Const alert, oriented x3, no apparent distress and healthy appearing General Appearance: cooperative GI normal to inspection, nondistended, normoactive bowel sounds, soft to palpation, non-tender and non-distended Percussion: normal to percussion Rectal Exam: deferred Assessment & Plan Assessment/Plan (1) Early satiety: (2) Abdominal pain: QUALIFIERS: Abdominal location: epigastric Qualified Code(s): R10.13 - Epigastric pain PLAN: Assessment and Plan Assessment and Plan (1) Hepatic cyst: Status: Acute (2) Constipation: Status: Acute Plan: Pt is a 59 yo female here today for follow up. She has not been doing well with severe epigastric pain, constipation and nausea. She tells me she has been unable to eat without pain. She has not had a complete bowel movement in 7 weeks. I will order a KUB to rule out obstruction. I will also order CMP and lipase. She will take a stimulant laxative today with miralax and see if this gives her any relief. She will call us to keep us updated. In the future we will do other testing like a sitz marker, EGD and repeat GES. I would like to get her acute episode of constipation under control first. She is agreeable to this plan. -CMP -KUB -She will take Miralax and stimulant laxative today -Consider further testing -f/u in 3 months (3) Abdominal pain: Status: Chronic Qualifiers: Abdominal location: epigastric Qualified Code(s): R10.13 - Epigastric pain Plan: Her CT scan abdomen pelvis showed multiple hepatic cysts. 1 dominant cyst in the right lobe the liver seem to be bigger than previous. It measures a 3.5 x 4.5 cm. She has multiple other small cyst in the liver. Also was abnormal was in the setting of a collapsed gallbladder she did have dilated biliary duct and pancreatic duct. Differential diagnosis would be ampullary neoplasm, stricture at the distal common bile duct, choledocholithiasis, pancreatic neoplasm or cholangiocarcinoma. I will get an MRCP and labs. Orders: Orders ABD Limited w/ Elastography Today K76.89 - Other specified diseases of liver
--- NOTE | 2025-02-03 13:47 | PRE.ANES_ITS ---
ASA Classification* ASA Classification ASA Classification: 3 Assessment & Plan Anesthesia* Anesthesia Assessment Anesthesia Assessment: Discussed sedation and/or anesthesia options, risks, benefits, and alternatives with patient/parents/legal guardian/POA. Questions invited. The patient/parents/legal guardian/POA seems to understand and agrees to proceed with anesthesia plan. Reviewed the physical assessment, medical history, allergy history and patient home medications list prior to surgery/procedure/anesthetic and documented any changes. Performed airway and anesthesia risk assessments. Anesthesia Type Anesthesia Type: MAC Anesthesia Focused Assessment* Temperature: 97.8 F Pulse Rate: 91 Blood Pressure: 152/91 Respiratory Rate: 12 Pulse Ox: 100 Airway Assessment Mouth opens: >3 cm Mallampati Score: II Focused Labs Anesthesia Preop lab: CBC WBC 6.4 K/mm3 (4.4-11.0) 01/06/25 11:01/06/25 RBC 4.44 M/mm3 (4.2-5.4) 01/06/25 11:01/06/25 Hgb 12.8 g/dL (12.0-15.0) 01/06/25 11:01/06/25 Hct 39.3 % (37-47) 01/06/25 11:01/06/25 Plt Count 490 K/mm3 (150-450) H 01/06/25 11:01/06/25 CHEMISTRY Potassium 3.9 mmol/L (3.5-5.1) 01/06/25 11:01/06/25 Sodium 139 mmol/L (136-145) 01/06/25 11:01/06/25 Magnesium 2.1 mg/dL (1.6-2.6) 10/29/21 14:40 10/29/21 Phosphorus 3.2 mg/dL (2.5-4.9) 12/19/20 04:27 12/19/20 BUN 11 mg/dL (7-18) 01/06/25 11:05 01/06/25 Creatinine 0.65 mg/dL (0.55-1.02) 01/06/25 11:05 01/06/25 Glucose 77 mg/dL (74-106) 01/06/25 11:01/06/25 TSH 1.29 uIU/mL (0.358-3.74) 07/20/22 09:36 COAG PT 13.3 SECONDS (11.7-14.9) 06/17/24 10:25 Pre-Assessment Diagnosis/Proposed Procedure Planned Operative Procedure(s): EGD Anesthesia History Anesthesia History - assistant site manager: Anesthesia History - assistant site manager Hx Hospitalization Yes: 11/2024 FLU, HYPOXIA 02/02/25 14:31 Any Problems With Anesthesia No 02/02/25 14:31 Cholinesterase deficiency No 02/02/25 14:31 You/Your Family Experience No 02/02/25 14:31 fever (hyperthermia) with Relationship SISTER 09/04/23 12:15 Recent Exposure to Contagious No 02/03/25 13:35 Disease Does patient have nerve No 02/02/25 14:31 stimulator Patient instructed to have device shut off --Does patient have Pacemaker No 02/03/25 13:35 or ICD? When Was Last Pacemaker Check QUESTION #4 FULL TEXT: You/Your Family Experience fever (hyperthermia) with Anesthesia Last Oral Intake Last Oral intake: Last Oral Intake NPO since 05:30 02/03/25 13:35 Meds taken in AM with sips of water? Meds patient instructed to take am of surgery PONV PONV - assistant site manager: PONV - assistant site manager Female Yes 02/02/25 14:31 HX of Motion Sickness Yes 02/02/25 14:31 HX of N/V After Surgery No 02/02/25 14:31 Non-Smoker No 02/02/25 14:31 Duration of Surgery greater No 02/02/25 14:31 than 60 minutes Number of Risk Factors 2 02/02/25 14:31 PONV Score Moderate Risk 02/02/25 14:31 Height & Weight Height & Weight: Anesthesia: Height & Weight Height 5 ft 1.81 in 02/03/25 13:35 Weight: 55 kg 02/03/25 13:35 Body Mass Index (BMI) 22.3 02/03/25 13:35 Respiratory Assessment Respiratory Assessment - assistant site manager: Respiratory Tract Infection Hx - assistant site manager Hx Respiratory Tract Infection No 02/02/25 14:31 STOP Sleep Apnea STOP Sleep Apnea - assistant site manager: STOP Sleep Apnea - assistant site manager Hx Hypertension Yes 02/02/25 14:31 Hx Sleep Apnea No 02/02/25 14:31 CPAP No 02/02/25 14:31 BIPAP Do you snore loudly (louder No 02/02/25 14:31 than talking or can be heard Do you often feel tired/ No 02/02/25 14:31 fatigued/ sleepy during daytime? Has anyone observed you stop No 02/02/25 14:31 breathing during sleep? STOP Results Negative 02/02/25 14:31 QUESTION #5 FULL TEXT : Do you snore loudly (louder than talking or can be heard through closed doors)? Tobacco Use History Tobacco Use History - assistant site manager: Tobacco Use History - assistant site manager Tobacco Use Cigarettes 04/06/21 11:45 Smoking Status Current some day smoker 02/02/25 14:31 Hx Tobacco Use Yes 02/02/25 14:31 Years Smoking Packs Smoked per Day Smoking Cessation Date was within the last 15 years Hx Smoking Cessation Date Hx Smoking Cessation No 02/02/25 14:31 Counseling Hematologic Medial History Hematologic Hx - assistant site manager: Hematologic Medical Hx - director of materials management Hx of Blood Transfusion No 02/02/25 14:31 Hx of Transfusion in last 3 No 02/02/25 14:31 Months Date of Last Transfusion (if within last 3 months) Ever experience any problems No 02/02/25 14:31 with transfusion(s)? Specify any problems Hx of Preganancy in last 3 No 02/02/25 14:31 Months Nurse Filling Out Transfusion MGRIFFITH 02/02/25 14:31 & Questions: Date: 02/02/25 02/02/25 14:31 Time: 14:34 02/02/25 14:31 Patient unable to answer at this time (ie. confused, unrespo /Reproduction History /Reproductive History - assistant site manager: /Reproductive Hx- assistant site manager Hx Now No 02/02/25 14:31 Gestational Age (in weeks): EDC: Hx Hx Para Hx Section SAB No 02/02/25 14:31 PFSH Medical History Thyroid disease Excessive bleeding Wears dentures History of hiatal hernia Hypoxia Anxiety Asthma Coronary artery disease Hypertension Rheumatoid arthritis High cholesterol Edentulous Smoker Emphysema, unspecified History of stress test Cardiology follow-up encounter Ulcerative colitis History of non-ST elevation myocardial infarction (NSTEMI) (08/10/21) Barretts esophagus Chronic constipation Irritable bowel syndrome with diarrhea Takotsubo cardiomyopathy (08/10/21) Post-menopausal Wears glasses Back pain Difficulty swallowing Gastric reflux Shortness of breath on exertion Leg cramps History of Holter monitoring History of echocardiogram Eloped from emergency department Intermittent palpitations Chest pain, non-cardiac Abdominal pain Depression Former smoker Myocardial infarct Asthma-COPD overlap syndrome Chest pain of uncertain etiology Headache Anxiety disorder Chronic left-sided thoracic back pain Adverse drug reaction COPD (chronic obstructive pulmonary disease) Shortness of breath 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) Ischemic cardiomyopathy Nicotine dependence Essential (primary) hypertension History of ST elevation myocardial infarction (STEMI) (12/18/20) Atherosclerotic heart disease of [place] coronary artery without angina pectoris GERD (gastroesophageal reflux disease) Borderline personality disorder Bipolar affective disorder Home Medications ?Medication ?Instructions ?Recorded ?Last Taken ?Type aspirin 81 mg tablet,delayed 81 mg PO QGamzee ADITHYA NTENANCE 07/13/21 01/29/25 History release (Adult Low Dose Aspirin) fluticasone propionate 50 2 spray intranasal DAILY PRN 10/29/21 01/29/25 History mcg/actuation nasal Allergy Symptoms spray,suspension (Flonase Allergy Relief) spacer #1 ea 05/23/22 Unknown Rx lorazepam 0.5 mg tablet 0.5 mg PO DAILY PRN anxiety 09/04/23 01/29/25 History cholecalciferol (vitamin D3) 50 50 mcg PO QDAY 4 01/29/25 History mcg (2,000 unit) capsule (Vitamin D3) lamotrigine 25 mg tablet 25 mg PO DAILY 04/09/2406/18 History magnesium 200 mg tablet 200 mg PO QWEEK 04/09/2406/18 History albuterol sulfate 90 mcg/actuation 2 inh inhalation Q6 H PRN shortness 05/11/24 Unknown Rx aerosol inhaler (Ventolin HFA) of breath or wheezing # 8.5 grams doxazosin 1 mg tablet 1 mg PO DAILY #90 tabs 06/2201/29/25 Rx budesonide 160 mcg-glycopyr 9 2 inh inhalation BID #3 ea 08/04/24 01/29/25 Rx mcg-formot 4.8 mcg/actuation HFA inhaler (Breztri Aerosphere) fluoxetine 10 mg capsule (Prozac) 10 mg PO DAILY 12/2201/29/25 History esomeprazole magnesium 40 mg 40 mg PO QDAY 01/29/25 History capsule,delayed release (Nexium) rosuvastatin 5 mg tablet (Crestor) 5 mg PO QDAY Unknown History famotidine 40 mg tablet 40 mg PO QDAY 02/02/2501/29 History potassium chloride 20 mEq 20 meq PO DAILY 02/02/2506/18 History tablet,extended release Allergy/AdvReac Type Severity Reaction Status Date / Time morphine Allergy Hives Verified 02/03/25 13:33 amlodipine AdvReac Intermediate chest Verified 02/03/25 13:33 pain and cannot breathe carvedilol (From Coreg) AdvReac Intermediate throat Verified 02/03/25 13:33 closing up and chest pressure citalopram (From Celexa) AdvReac NAUSEATED Verified 02/03/25 13:33 AND IRRITABLE lisinopril AdvReac SOB, chest Verified 02/03/25 13:33 tightness,throat closing venlafaxine (From Effexor) AdvReac DIDN'T Verified 02/03/25 13:33 WORK Family History Father CAD (coronary artery disease) Myocardial infarction Surgical History History of esophagogastroduodenoscopy (EGD) History of cardiac catheterization (08/11/21) H/O section History of left heart catheterization (05/17/21) History of coronary artery stent placement (12/18/20) Social History household members: none Smoking Status: Current some day smoker tobacco type: cigarettes alcohol intake: never substance use type: does not use caffeine: Yes Type: coffee Number of servings: 2 Review of Systems (Anesthesia) ROS Narrative System reviewed and no additional complaints, except as documented.
--- NOTE | 2025-02-03 14:15 | PCM.POST.ANE ---
Anesthesia: Postop Eval I Current Vital Signs Temperature: 97.1 F Pulse Rate: 88 Blood Pressure: 140/90 Respiratory Rate: 16 Pulse Ox: 93 Oxygen Delivery Method: Room Air Assessment Airway patent: Yes Spontaneous unlabored respirations: Yes Mental status: Asleep nausea: No Vomiting: No Anesthesia Complication: No Fluid Hydration Crystalloid volume administer (ml): 30 Total IV fluid infused: 30 Progress Note Anesthesia document: Postop Eval 1 completed: Yes
--- NOTE | 2025-02-03 14:16 | OP.CCLET_ITS ---
02/03/2025 Ellis Crandall MD Re : Upper GI endoscopy procedure for Erica Pedroza Dear Dr. Crandall This procedure was performed on Monday, February 03, 2025. 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 - Z-line irregular, 37 cm from the incisors. Biopsied. - Small hiatal hernia. - Erythematous mucosa in the stomach. - No gross lesions in the first portion of the duodenum. Recommendations : - Discharge patient to home. - Resume previous diet. - Continue present medications. - Await pathology results. - Endoscopic Ultrasound My findings are described in the full procedure note, which is enclosed. If I can be of further assistance, please feel free to contact me at . Sincerely, Aime Magaña, 02/03/2025 2:15:40 PM This report has been signed electronically.
--- NOTE | 2025-02-03 14:16 | OP.EGD_ITS ---
Patient Name: Erica Pedroza Procedure Date: 02/03/2025 1:34 PM Date of : 1965 Age: 59 Procedure: Upper GI endoscopy Indications: Dysphagia Providers: Aime Magaña DO Medicines: Monitored Anesthesia Care Patient Profile: This is a 59 year old female. Refer to note in patient chart for documentation of history and physical. Patient has symptoms of acute dysphagia. Complications: No immediate complications. Procedure: Pre-Anesthesia Assessment: - Prior to the procedure, a History and Physical was performed, and patient medications and allergies were reviewed. The patient is competent. The risks and benefits of the procedure and the sedation options and risks were discussed with the patient. All questions were answered and informed consent was obtained. Patient identification and proposed procedure were verified by the physician in the pre-procedure area. Mental Status Examination: alert and oriented. Airway Examination: normal oropharyngeal airway and neck mobility. Respiratory Examination: clear to auscultation. CV Examination: normal. ASA Grade Assessment: II - A patient with mild systemic disease. After reviewing the risks and benefits, the patient was deemed in satisfactory condition to undergo the procedure. The anesthesia plan was to use monitored anesthesia care (MAC). Immediately prior to administration of medications, the patient was re-assessed for adequacy to receive sedatives. The heart rate, respiratory rate, oxygen saturations, blood pressure, adequacy of pulmonary ventilation, and response to care were monitored throughout the procedure. The physical status of the patient was re-assessed after the procedure. After obtaining informed consent, the endoscope was passed under direct vision. Throughout the procedure, the patient's blood pressure, pulse, and oxygen saturations were monitored continuously. The gastroscope was introduced through the mouth, and advanced to the second part of duodenum. The upper GI endoscopy was accomplished without difficulty. The patient tolerated the procedure well. Scope In: 2:02:00 PM Scope Out: 2:05:59 PM Total Procedure Duration Time 0 hours 3 minutes 59 seconds Findings: A medium-sized, submucosal mass with no bleeding and no stigmata of recent bleeding was found in the upper third of the esophagus, 25 cm from the incisors. The mass was non-obstructing and not circumferential. The Z-line was irregular and was found 37 cm from the incisors. Biopsies were taken with a cold forceps for histology. Verification of patient identification for the specimen was done. Estimated blood loss was minimal. A small hiatal hernia was present. Diffuse mildly erythematous mucosa without bleeding was found in the entire examined stomach. No gross lesions were noted in the first portion of the duodenum. 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 - Z-line irregular, 37 cm from the incisors. Biopsied. - Small hiatal hernia. - Erythematous mucosa in the stomach. - No gross lesions in the first portion of the duodenum. Recommendation: - Discharge patient to home. - Resume previous diet. - Continue present medications. - Await pathology results. - Endoscopic Ultrasound Procedure Code(s): --- Professional --- 03960, Esophagogastroduodenoscopy, flexible, transoral; with biopsy, single or multiple CPT copyright 2021 [employer]. All rights reserved. The codes documented in this report are preliminary and upon gunner mate review may be revised to meet current compliance requirements. Aime Magaña DO 02/03/2025 2:15:40 PM This report has been signed electronically. Number of Addenda: 0 Note Initiated On: 02/03/2025 1:34 PM
--- NOTE | 2025-02-03 14:29 | PCM.POSTANE2 ---
Anesthesia Postop Eval I Sum Postop Eval Completion status Anesthesia document: Postop Eval 1 completed: Yes Anesthesia Postop Eval I Summary Anesthesia Postop Eval I Summary: Anesthesia Postop Eval I: Assessment Summary Airway patent Yes 02/03/25 14:17 [email or web address] Spontaneous unlabored Yes 02/03/25 14:17 [email or web address] respirations Mental status Asleep 02/03/25 14:17 [email or web address] nausea No 02/03/25 14:17 [email or web address] Vomiting No 02/03/25 14:17 [email or web address] Anesthesia Postop Eval I: Fluid Summary Crystalloid volume administer 30 02/03/25 14:17 [email or web address] (ml) Colloids volume administered ( ml) Blood Product volume administered (ml) Total IV fluid infused 30 02/03/25 14:17 [email or web address] Anesthesia Postop Eval I: Summary Notes Anesthesia Complication No 02/03/25 14:17 [email or web address] Anesthesia Complication Comment: Post-operative progress note Anesthesia: Postop Eval II Evaluation Mental status: Awake Pain Level: 0 nausea: No Vomiting: No
--- NOTE | 2025-02-03 14:45 | EGD_PTH ---
PATIENT: SJ MOHAN LOC: EN U#:[id number] AGE/SX: 59/F ROOM: RE02/03/[address]: Dr. Aime Magaña DO : 1965 BED: DIS: 02/03/2025 SPEC #: [id number] RECD: 02/04/25 11:16 STATUS: CARSON MARIE #: [id number] [place]: 02/03/25 14:[address]: Aime Magaña DEPT: SURGICAL PATHOLOGY RECD BY: Chele Roca ENTERED: 02/04/25 11:17 SP TYPE: EGD BIOPSY CHRIS DR: Dr. Ellis Crandall MD Tissues: Esophagus, NOS Procedures: Surgery Specimen Level IV HEADER OPERATION: EGD with biopsies PRE-OP DIAGNOSIS: Early satiety, abdominal pain TISSUE SUBMITTED: A- Distal esophagus biopsy MICROSCOPIC DIAGNOSIS A. Distal esophagus, biopsy: * Columnar mucosa negative for goblet cell metaplasia. * Focal scant squamous metaplasia. MICROSCOPIC DESCRIPTION Slides are reviewed. GROSS DESCRIPTION A. Received in fixative is one container labeled with the patient's name and designated Distal esophagus biopsy. The specimen consists of multiple irregular fragments of light rm soft tissue that in aggregate measure 0.7 x 0.6 x 0.2 cm. The specimen is totally submitted in one cassette. 02/04/2025 CPT:62640
== END 2025-02-03 15:08 | disposition home or self-care (01) ==
LOC: EN 13:15 → AC 13:16
PROVIDERS: PCP Family Medicine; Referring Provider Family Medicine; Visit Provider Internal Medicine Gastroenterology
PROC: 0DJ08ZZ Inspection of Upper Intestinal Tract, Via Natural or Artificial Opening Endoscopic (ICD-10-PCS; CPT 43235; principal; 2025-02-03 14:40)
DX: K44.9 Diaphragmatic hernia without obstruction or gangrene (principal); F60.3 Borderline personality disorder; F31.9 Bipolar disorder, unspecified; J44.9 Chronic obstructive pulmonary disease, unspecified; D13.0 Benign neoplasm of esophagus; I10 Essential (primary) hypertension; Z95.5 Presence of coronary angioplasty implant and graft; F41.9 Anxiety disorder, unspecified; I25.10 Atherosclerotic heart disease of native coronary artery without angina pectoris; K21.9 Gastro-esophageal reflux disease without esophagitis; I25.2 Old myocardial infarction
CPT/HCPCS: 43239; 88305; A4216; J2405

== ENCOUNTER 2025-03-12 21:25 | Emergency (ER) | payer MEDICARE, MEDICAID, SELFPAY ==
[2025-03-12 21:27] VITALS: BP 189/104; PULSE 100; RESP 20; TEMP 36.3; O2SAT 99; BMI 24.3
[2025-03-12 22:26] VITALS: BP 164/109; PULSE 71
--- NOTE | 2025-03-12 22:28 | RAD_ITS ---
PROCEDURE: CHEST PA AND LATERAL 03/12/2025 REASON FOR EXAM: CHEST PAIN TECHNIQUE: Frontal and lateral views of the chest. COMPARISON: None FINDINGS: Hardware: None Heart: The heart size is normal. Mediastinum: The mediastinal contour is unremarkable. Lungs: The lungs are clear. Bones: The bones are unremarkable. RAD/Chest PA and Lateral IMPRESSION: NO ACUTE FINDINGS. Reading Location: [facility]
--- NOTE | 2025-03-12 22:30 | EKG12_ITS ---
Test Reason : CP Blood Pressure : */* mmHG Vent. Rate : 81 BPM Atrial Rate : 81 BPM P-R Int : 170 ms QRS Dur : 94 ms QT Int : 382 ms P-R-T Axes : 78 67 64 degrees QTcB Int : 443 ms Normal sinus rhythm Normal ECG Confirmed by JORJE KING, LEONIDES ([id number]), tape editor MIGUEL ARSHAD ([id number]) on 03/15/2025 8:44:33 AM Referred By: Confirmed By: LEONIDES RECINOS MD
[2025-03-12 22:39] LABS: Absolute Lymphocyte Count 1.78 X10^3/uL (0.83-4.51); Absolute Neutrophil Count 2.3 X10^3/uL (2.0-7.7); Basophil# 0.06 X10^3/uL; Basophil% 1.3 % (0-1); Eosinophil# 0.14 X10^3/uL; Hematocrit 36.9 % (37-47); Hemoglobin 12.2 g/dL (12.0-15.0); Lymphocyte # 1.78 X10^3/ul (0.83-4.51); Lymphocyte % 38.4 % (19-41); Mean Corp Hgb Conc 33.1 g/dL (32-36); Mean Corpuscular Hgb 28.8 pg (27.0-32.0); Mean Platelet Vol. 11.7 fl (6.2-12.0); Monocyte# 0.39 X10^3/uL; Monocyte% 8.4 % (0-10); NRBC Flagged by Analyzer 0 % (0-5); Neutrophil # 2.25 X10^3/uL (2.7-7.7); Neutrophil % 48.7 % (47-70); Platelet Count 235 K/mm3 (150-450); RBC Distribution Width CV 13.5 % (11.6-14.6); RBC Distribution Width SD 42.8 fl (35.1-43.9); Red Blood Count 4.24 M/mm3 (4.2-5.4); White Blood Count 4.6 K/mm3 (4.4-11.0)
[2025-03-12 22:55] VITALS: BP 172/99; PULSE 75; O2SAT 96
[2025-03-12 23:09] LABS: Anion Gap 10 (5-15); BUN 13 mg/dL (4-19); BUN/Creat Ratio 17.9 RATIO (10-20); Calcium,Total 9.6 mg/dL (7.6-11.0); Carbon Dioxide 22.3 mmol/L (21.0-32.0); Chloride 104 mmol/L (98-108); EST Glomerular Filtration Rate 100 (>60); Glucose 67 mg/dL (70-99); Potassium 3.4 mmol/L (3.3-5.1); Sodium Level 136 mmol/L (133-145); Troponin T High Sensitivity < 6 ng/L (<=14)
--- NOTE | 2025-03-12 23:20 | EX.ED.DYSGE1 ---
HPI History of Present Illness Chief Complaint: Chest Pain Informant: patient Narrative Narrative: Patient is a 59-year-old female with past medical history of hypertension COPD and coronary artery disease. 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 She states secondary to this recent diagnosis she has constant abdominal pain and it can occasionally refer to her chest. She states over the last 1 to 2 days she has noticed intermittent midsternal slightly left-sided chest discomfort. She states that there is no associated nausea vomiting diaphoresis or shortness of breath. However because she has a known history of CAD with previous stent placement 5 years ago she is concerned this could be potential cardiac and therefore comes in for evaluation. [facility] Medical History Thyroid disease Excessive bleeding Wears dentures History of hiatal hernia Hypoxia Anxiety Asthma Coronary artery disease Hypertension Rheumatoid arthritis High cholesterol Edentulous Smoker Emphysema, unspecified History of stress test Cardiology follow-up encounter Ulcerative colitis History of non-ST elevation myocardial infarction (NSTEMI) (08/10/21) Barretts esophagus Chronic constipation Irritable bowel syndrome with diarrhea Takotsubo cardiomyopathy (08/10/21) Post-menopausal Wears glasses Back pain Difficulty swallowing Gastric reflux Shortness of breath on exertion Leg cramps History of Holter monitoring History of echocardiogram Eloped from emergency department Intermittent palpitations Chest pain, non-cardiac Abdominal pain Depression Former smoker Myocardial infarct Asthma-COPD overlap syndrome Chest pain of uncertain etiology Headache Anxiety disorder Chronic left-sided thoracic back pain Adverse drug reaction COPD (chronic obstructive pulmonary disease) Shortness of breath 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) Ischemic cardiomyopathy Nicotine dependence Essential (primary) hypertension History of ST elevation myocardial infarction (STEMI) (12/18/20) Atherosclerotic heart disease of [place] coronary artery without angina pectoris GERD (gastroesophageal reflux disease) Borderline personality disorder Bipolar affective disorder Home Medications ?Medication ?Instructions ?Recorded ?Last Taken ?Type aspirin 81 mg tablet,delayed 81 mg PO QODAY HEALTH MAINTENANCE 07/13/21 01/29/25 History release (Adult Low Dose Aspirin) fluticasone propionate 50 2 spray intranasal DAILY PRN 10/29/21 01/29/25 History mcg/actuation nasal Allergy Symptoms spray,suspension (Flonase Allergy Relief) spacer #1 ea 05/23/22 Unknown Rx lorazepam 0.5 mg tablet 0.5 mg PO DAILY PRN anxiety 09/04/23 01/29/25 History cholecalciferol (vitamin D3) 50 50 mcg PO QDAY 04/09/24 01/29/25 History mcg (2,000 unit) capsule (Vitamin D3) lamotrigine 25 mg tablet 25 mg PO DAILY 04/09/24 01/29/25 History magnesium 200 mg tablet 200 mg PO QWEEK 04/09/24 01/29/25 History albuterol sulfate 90 mcg/actuation 2 inh inhalation Q6H PRN shortness 05/11/24 Unknown Rx aerosol inhaler (Ventolin HFA) of breath or wheezing #8.5 grams doxazosin 1 mg tablet 1 mg PO DAILY #90 tabs 06/22/24 01/29/25 Rx budesonide 160 mcg-glycopyr 9 2 inh inhalation BID #3 ea 08/04/24 01/29/25 Rx mcg-formot 4.8 mcg/actuation HFA inhaler (Breztri Aerosphere) fluoxetine 10 mg capsule (Prozac) 10 mg PO DAILY 12/22/24 01/29/25 History esomeprazole magnesium 40 mg 40 mg PO QDAY 01/29/25 01/29/25 History capsule,delayed release (Nexium) rosuvastatin 5 mg tablet (Crestor) 5 mg PO QDAY 01/29/25 Unknown History famotidine 40 mg tablet 40 mg PO QDAY 02/02/25 01/29/25 History potassium chloride 20 mEq 20 meq PO DAILY 02/02/25 01/29/25 History tablet,extended release alprazolam 0.5 mg disintegrating 0.5 mg PO BID PRN anxiety 2 weeks 03/09/25 Unknown Rx tablet #14 tabs lansoprazole 30 mg delayed 30 mg PO QDAY #30 tabs 03/09/25 Unknown Rx release,disintegrating tablet Allergy/AdvReac Type Severity Reaction Status Date / Time morphine Allergy Hives Verified 03/12/25 21:27 amlodipine AdvReac Intermediate chest Verified 03/12/25 21:27 pain and cannot breathe carvedilol (From Coreg) AdvReac Intermediate throat Verified 03/12/25 21:27 closing up and chest pressure citalopram (From Celexa) AdvReac NAUSEATED Verified 03/12/25 21:27 AND IRRITABLE lisinopril AdvReac SOB, chest Verified 03/12/25 21:27 tightness,throat closing venlafaxine (From Effexor) AdvReac DIDN'T Verified 03/12/25 21:27 WORK Family History Father CAD (coronary artery disease) Myocardial infarction Surgical History History of esophagogastroduodenoscopy (EGD) History of cardiac catheterization (08/11/21) H/O section History of left heart catheterization (05/17/21) History of coronary artery stent placement (12/18/20) Social History household members: none Smoking Status: Current some day smoker tobacco type: cigarettes alcohol intake: never substance use type: does not use caffeine: Yes Type: coffee Number of servings: 2 ROS ROS ED Constitutional Constitutional ED: Denies chills or fever(s) Eyes Eyes: Denies change in vision ENT ENT ED: Denies sore throat Cardiovascular Cardiovascular: Reports chest pain; Denies palpitations or racing heartbeat Respiratory/Chest Respiratory/Chest: Denies cough or dyspnea Gastrointestinal Gastrointestinal: Reports abdominal pain; Denies diarrhea, nausea or vomiting Genitourinary Genitourinary ED: Denies dysuria Musculoskeletal Musculoskeletal: Reports back pain Integumentary Denies rash Neurologic Neurologic: Denies headache(s) Hematologic/Lymphatic Hematologic/Lymphatic: Denies easy bleeding or easy bruising EXAM Physical Exam Const Vital Signs: 03/12/25 21:27 03/12/25 21:41 03/12/25 22:26 Temperature 97.3 F L Temperature Source Temporal Pulse Rate 100 71 Respiratory Rate 20 H Respiratory Effort Normal Non-Labored Blood Pressure 189/104 H 164/109 H Blood Pressure Mean 132 127 Pulse Ox 99 Oxygen Delivery Method Room Air 03/12/25 22:55 Temperature Temperature Source Pulse Rate 75 Respiratory Rate Respiratory Effort Blood Pressure 172/99 H Blood Pressure Mean 123 Pulse Ox 96 Oxygen Delivery Method Positive well nourished and well developed General Appearance ED: well developed; Negative for pallor HEENT HEENT Narrative: Normocephalic atraumatic Eyes PERRL and EOMs intact bilaterally General Eye ED: Negative for scleral icterus Neck supple and no JVD Chest Wall Chest Narrative: There is midsternal to left-sided chest discomfort that is reproducible in nature. No bony deformity or subcutaneous emphysema noted. No overlying soft tissue changes to suggest infection or trauma. Resp normal respiratory effort and clear to auscultation bilaterally Cardio regular rate and regular rhythm Rate: other Other Details: Radial and carotid pulses are equal and symmetric GI non-distended and no masses GI Narrative: Abdomen is soft and nondistended with normal active bowel sounds. There is midepigastric pain with palpation that patient reports is chronic in nature. No voluntary guarding no rigidity or pulsatile mass. Auscultation: normoactive bowel sounds Palpation: soft Extremity normal to inspection Extremity Narrative: No asymmetric edema no pitting edema negative Homans' sign bilaterally Neuro oriented x3, CN's II-XII intact bilaterally and no sensory deficits noted Sensorium / Orientation: alert Motor Exam: strength 5/5 throughout Psych mental status grossly normal Skin no rashes or lesions noted and no wounds General Skin Exam: Negative for jaundice or pallor MDM MDM MDM Narrative Medical decision making narrative: Patient arrived to the ER hypertensive but has a past medical history of this. She reported intermittent left-sided sharp pain without associated nausea vomiting or diaphoresis. She states that she believes this is related to her recent diagnosis of a pancreatic cyst or tumor but as she has known CAD was concern for potential cardiac involvement. Terminal diagnosis is for costochondritis versus pneumonia versus pneumothorax versus ACS. Secondary to this basic blood work and a chest x-ray were obtained. Troponin was less than 6 going against acute coronary syndrome and EKG showed no signs of cardiac dysrhythmia or STEMI/ischemia. Chest x-ray revealed no acute lung pathology. On reevaluation the patient reports resolution of her chest discomfort without any medication provided. Therefore at this time with spontaneous resolution of symptoms and negative cardiac workup and no signs of endorgan damage from her hypertension there is no need for further workup and she is otherwise safe for discharge. History & Record Review Discussion w/independent historian: Patient Lab Data Attestation: I reviewed the patient's lab results. Labs: Laboratory Results - last 24 hr 03/12/25 21:35 WBC 4.6 RBC 4.24 Hgb 12.2 Hct 36.9 L MCV 87.0 MCH 28.8 MCHC 33.1 RDW Std Deviation 42.8 RDW Coeff of Dona 13.5 Plt Count 235 MPV 11.7 Immature Gran % (Auto) 0.200 Neut % (Auto) 48.7 Lymph % (Auto) 38.4 [place] % (Auto) 8.4 Eos % (Auto) 3.0 Baso % (Auto) 1.3 H Absolute Neuts (auto) 2.3 Absolute Lymphs (auto) 1.78 Nucleated RBC % 0 Sodium 136 Potassium 3.4 Chloride 104 Carbon Dioxide 22.3 Anion Gap 10 BUN 13 Creatinine 0.70 Estim Creat Clear Calc 69.60 Est GFR (MDRD) Non-Af 100 BUN/Creatinine Ratio 17.9 Glucose 67 L Calcium 9.6 Magnesium 2.0 Troponin T High Sens < 6 Radiography Diagnostic Testing: Clinical Impression(s) from Imaging Studies Chest X-Ray 03/12/25 22:28 IMPRESSION: NO ACUTE FINDINGS. Reading Location: [facility] 2 view chest x-ray is interpreted by the emergency medicine physician reveals no acute infiltrate pneumothorax pleural effusion or widening of the mediastinum. Discharge Plan Triage Chief Complaint: Chest Pain ED Provider: Johnathan Perez Dx/Rx/DC Orders Clinical Impression: Nonspecific chest pain, Essential (primary) hypertension, COPD (chronic obstructive pulmonary disease), CAD (coronary artery disease) Instructions: ED Chest Pain, Uncertain Cause Prescriptions: No Action aspirin [Adult Low Dose Aspirin] 81 mg tablet,delayed release (DR/EC) 81 mg PO QODAY Rx Instructions: 81 mg PO; 3x week lamotrigine 25 mg tablet 25 mg PO DAILY cholecalciferol (vitamin D3) [Vitamin D3] 50 mcg (2,000 unit) capsule 50 mcg PO QDAY Breztri Aerosphere 160-9-4.8 mcg/actuation HFA aerosol inhaler 2 inh inhalation BID Qty: 3 3RF famotidine 40 mg tablet 40 mg PO QDAY Patient Comments: [NO ORIGINAL SIG] esomeprazole magnesium [Nexium] 40 mg capsule,delayed release(DR/EC) 40 mg PO QDAY rosuvastatin [Crestor] 5 mg tablet 5 mg PO QDAY alprazolam 0.5 mg tablet,disintegrating 0.5 mg PO BID PRN (Reason: anxiety) 14 Days Qty: 14 0RF lansoprazole 30 mg tablet,disintegrat, delay rel 30 mg PO QDAY Qty: 30 3RF fluticasone propionate [Flonase Allergy Relief] 50 mcg/actuation spray,suspension 2 spray intranasal DAILY PRN (Reason: Allergy Symptoms) Rx Instructions: administer into each nostril lorazepam 0.5 mg tablet 0.5 mg PO DAILY PRN (Reason: anxiety) Patient Comments: Take 1 tablet by mouth once daily as needed for up to 30 days. magnesium 200 mg tablet 200 mg PO QWEEK fluoxetine [Prozac] 10 mg capsule 10 mg PO DAILY potassium chloride 20 mEq tablet extended release 20 meq PO DAILY (DME) spacer See Rx Instructions .ROUTE .MEDSUPPLY Qty: 1 0RF Rx Instructions: As directed albuterol sulfate [Ventolin HFA] 90 mcg/actuation HFA aerosol inhaler 2 inh inhalation Q6H PRN (Reason: shortness of breath or wheezing) Qty: 8.5 11RF doxazosin 1 mg tablet 1 mg PO DAILY Qty: 90 3RF Primary Care Provider: Ellis Crandall Referrals: Ellis Crandall MD [Primary Care Provider] - Activity Restrictions/Additional Instructions: Your workup today showed no sign of active cardiac damage. Continue all your medications as directed by your doctor and return to the ER should you have any further concerns Print Language: Bengali Disposition Disposition: Home, Self Care Discharge Date/Time: 03/12/25 23:27
[2025-03-12 23:27] VITALS: BP 170/99; PULSE 68; RESP 17; TEMP 36.8; O2SAT 99
== END 2025-03-12 23:27 | disposition home or self-care (01) ==
PROVIDERS: Emergency Provider Emergency Medicine; PCP Family Medicine; Visit Provider Emergency Medicine
DX: R07.9 Chest pain, unspecified (principal); J43.9 Emphysema, unspecified; I25.10 Atherosclerotic heart disease of native coronary artery without angina pectoris; I10 Essential (primary) hypertension; I25.2 Old myocardial infarction; K21.9 Gastro-esophageal reflux disease without esophagitis; Z95.5 Presence of coronary angioplasty implant and graft; Z79.82 Long term (current) use of aspirin; F17.210 Nicotine dependence, cigarettes, uncomplicated; R10.9 Unspecified abdominal pain
CPT/HCPCS: 71046; 80048; 83735; 84484; 85025; 93005; 99283; A4216